=== PATIENT | male | born 1965 | race Caucasian/White ===

== ENCOUNTER 2019-06-02 00:25 | Day surgery (SDC) | payer OTHER, SELFPAY ==
[2019-05-31 15:02] VITALS: BMI 37.3
[2019-06-02] VITALS (9 sets, daily range): BP systolic 123–143; BP diastolic 65–83; PULSE 68–82; RESP 15–20; TEMP 36.2–36.8; O2SAT 93–98
--- NOTE | 2019-06-02 10:17 | ECG_ITS ---
Measurements Intervals [place] Rate: 74 P: 18 NC: 161 QRS: 40 QRSD: 104 T: 34 QT: 362 QTc: 404 Interpretive Statements SINUS RHYTHM DELAYED PRECORDIAL R/S TRANSITION MINIMAL Q WAVES- INFERIOR LEADS BASELINE ARTIFACT- I, II BORDERLINE ECG Electronically Signed On 06-02-2019 11:04:42 ENVELOPE MAKER by Fareed Hernandez D.O.
[2019-06-02] MEDS: LACTATED RINGERS 1,000 ML 30 ML IV CONT ×2 (10:25→14:28)
--- NOTE | 2019-06-02 10:36 | WPDANESEPPF ---
Anes - Initial Pre Proc Eval Procedure: Operation Date: 06/02/19 12:00 Proposed Procedures p Right Shoulder Arthroscopy, Distal Clavicle Excision - Brad Coffey MD Date/Time: 06/02/19 10:36 Surgeon: Brad Coffey MD Pre Op Diagnosis: Right Shoulder Pain Patient Data Age: 54 Gender: M Height: 1.78 m Weight: 115.6 kg Allergies Allergy/AdvReac Type Severity Reaction Status Date / Time oxycodone Allergy Severe Rash, Verified 06/02/19 10:05 ITCHING tetracycline Allergy Mild VOMITING, Verified 05/31/19 15:04 DIARRHEA Penicillins AdvReac Mild N/V Verified 05/31/19 15:04 Home Medications Medication Instructions Recorded Confirmed Type gabapentin 300 mg capsule 600 mg PO HS cap 02/18/19 06/02/19 History nortriptyline 50 mg capsule 50 mg PO HS 02/18/19 06/02/19 History pantoprazole 40 mg tablet,delayed 40 mg PO QAM 02/18/19 06/02/19 History release tadalafil 5 mg tablet 5 mg PO DAILY 02/18/19 06/02/19 History zolpidem 10 mg tablet 10 mg PO HS PRN 02/18/19 06/02/19 History amlodipine 5 mg tablet 5 mg PO BID #180 tablet 04/06/19 06/02/19 Rx montelukast 10 mg tablet 10 mg PO DAILY #90 tablet 04/06/19 06/02/19 Rx hydrocodone 10 mg-acetaminophen 1 tablet PO BID PRN tablet 05/10/19 06/02/19 History 325 mg tablet calcium polycarbophil [Fiber-Tabs] 625 mg PO DAILY 05/31/19 06/02/19 History famotidine 40 mg PO HS 05/31/19 06/02/19 History losartan 25 mg PO DAILY 05/31/19 06/02/19 History meloxicam 7.5 mg PO BID 05/31/19 06/02/19 History omega 3-brl-lkq-fish oil [Fish Oil] 2 cap PO DAILY 05/31/19 06/02/19 History pravastatin 40 mg PO DAILY 05/31/19 06/02/19 History Patient hx anesthesia problems: none Family hx anesthesia problems: none PMFSH Past Medical History Medical History (Updated 06/02/19 @ 10:38 by Demian Conklin MD) Benign essential hypertension Body mass index (bmi) 37.0-37.9, adult (11/20/18) Family History Family History (Updated 11/23/18 @ 11:14 by DOCTOR UNKNOWN) Grandparent Cerebrovascular accident Social History Social History Smoking status: Current every day smoker Alcohol intake: current Anes - Eval Final PreProcedure Day of Procedure 06/02/19 10:36 Patient weight: obese Heart: regular rate and rhythm Lungs: clear to auscultation and normal air movement Airway: Mallampati scale class II Neurological: alert and oriented Last oral intake: >/= 8 hours ASA classification: III Emergent: no Anesthetic plan: proceed Anesthesia type and monitoring: general ETT Informed Consent: The patient's anesthetic plan and its attendant risks and benefits were discussed with the patient/family/POA. Questions were solicited and answers provided to the satisfaction of the patient/family/POA.
--- NOTE | 2019-06-02 10:40 | WPDANESPNB ---
Anes - Peripheral Nerve Block Date/Time: 06/02/19 10:40 I have discussed with the patient/family/POA the placement of a peripheral nerve block for post-operative pain management, including associated risks, benefits, complications, and side effects. Alternative methods of post-operative analgesia were detailed. Questions were solicited and answers provided to the satisfaction of the patient/family/POA. Time-Out: A pre-procedural Time-Out was completed immediately before starting the procedure and confirmed: Patient Identification, Site, Procedure, Patient Position and the Availability of Requisite Equipment. Clinical Indications: Acute post-operative pain management requested by the operative surgeon. Nerve Block Insertion Note Anes-nerve block: supraclavicular right Patient position: supine Skin prep: chlorhexidine Needle: 22 gauge, stimulating, insulated echogenic needle. Needle length: 80 mm Technique: ultrasound (in plane) Injectate: bupivacaine 0.5% with epi 5 mcg/ml (20cc) Observations: tolerated well Complications: none Procedure start time:: 1200 Procedure end time:: 1205
--- NOTE | 2019-06-02 12:19 | WPDHPUPDATE1 ---
History and Physical Update Update Date/Time: 06/02/19 12:19 History and Physical has been reviewed, including an updated exam of the patient. There are NO changes in the patient's condition. Risks, benefits, and alternatives have been discussed and questions answered. Patient agrees to proceed with procedure.
[2019-06-02] MEDS: ceFAZolin 2 GM/D5W 50 ML 2 GM/50 ML BAG IVPB (12:23)
--- NOTE | 2019-06-02 14:08 | SUR.OPER ---
Ebl=50ml
--- NOTE | 2019-06-02 14:20 | PM.PROC ---
Procedure Note - Detailed Date of procedure: 06/02/19 Pre-op diagnosis: Right Shoulder Pain The risks benefits alternatives complications were discussed with the patient. They include but not limited to infection nerve blood vessel injury and the patient agreed to proceed. The patient presents with a right shoulder injury as result of a work-related incident. The patient had failed conservative management with regards to right shoulder pain. His preoperative diagnosis was that of possible labral tear and also significant acromioclavicular joint inflammation. The patient had failed conservative management with regards to physical therapy as well as oral anti-inflammatory medications and injections with cortisone. Therefore he is indicated for right shoulder arthroscopy. The patient was brought to the operative placed in supine position at which time he underwent general endotracheal anesthesia. He was then placed in a modified beach chair position with all bony prominences padded. Prior to this the patient underwent a interscalene block on the right side. The right shoulder was then prepped and draped in a standard sterile fashion. I 1st placed the camera into the glenohumeral joint space with some immediately noted pathology involving the superior aspect of the labrum. There was a labral tear that identified. I repaired this labral tear with a Arthrex suture anchor at about the 12 o'clock position. The subscapularis as well as the supraspinatus and infraspinatus were all intact and in good condition and there was no evidence of arthritis involving the glenohumeral joint. There is no evidence of inflammation of the biceps tendon as it traversed into the bicipital groove. This completed the labral repair. I then placed the camera into the subacromial space at which time I noted extensive inflammation of the subacromial bursa. It was at this time that I performed a subacromial bursectomy complete, with extensive dissection of the subacromial space. This was pathologic inflammation and extensive. This completed the portion of the procedure which was the subacromial bursectomy completed with extensive debridement of the subacromial space. I then identified a downsloping acromion over the anterolateral aspect. This downsloping acromion along with the injury to the right shoulder would provide for continued subacromial inflammation, therefore I elected to perform a subacromial decompression removing approximately 6 mm of the anterolateral aspect of the acromion with an arthroscopic bur. This completed the portion of the procedure which was the subacromial decompression. We then addressed the distal clavicle at which time I removed approximately 6-8 mm of the distal clavicle. There was significant amount of inflammation in this area and also this was significantly tender at the time of presentation with regards to this patient right shoulder work-related injury. I then irrigated copiously and closed the portal sites using Monocryl suture and benefits of shoulder in a sterile fashion. He was then transferred to the recovery room in stable condition. The patient will be seen by Physical therapy approximately day after tomorrow as it will be at that time that he keeps his incision dry and has a dressing change. Post-op diagnosis: other (Right Shoulder AC joint Inflamation, Right Shoulder Labral Tear, Right Shoulder Impingement Syndrome, Right Shoulder Subacromial Bursitis Complete with Extensive drebridement, Right Shoulder manipulation under anesthesia) Procedure performed: 1. Right Shoulder Labral Repair 2. Right Shoulder Distal Clavicel Excision 3. Right Shoulder Subacromial Decompression 4. Right Shoulder Subacromial Bursectomy Complete with extensive debridement Description of procedure: The Risks lisa Implants: Arthrex suture anchor Anesthesia: DELIA Surgeon: Brad Coffey MD Generating Plant Superintendent: none Estimated blood loss (mL): 10 Drains: No Packing: No Pathology: none sent C
--- NOTE | 2019-06-02 15:08 | SUR.PHASEI ---
1508 - family updated on pt's status
== END 2019-06-02 16:32 | disposition home or self-care (01) ==
PROVIDERS: PCP Internal Medicine; Visit Provider Orthopaedic Surgery
PROC: (CPT 29805; principal; 2019-06-02 12:00)
DX: S43.431A Superior glenoid labrum lesion of right shoulder, initial encounter (principal); M75.41 Impingement syndrome of right shoulder; M75.51 Bursitis of right shoulder; G89.18 Other acute postprocedural pain; X50.0XXA Overexertion from strenuous movement or load, initial encounter; I10 Essential (primary) hypertension; F17.210 Nicotine dependence, cigarettes, uncomplicated; E66.9 Obesity, unspecified; Z68.36 Body mass index [BMI] 36.0-36.9, adult
CPT/HCPCS: 29807; 29826; 29824; 64415; 93005; J0330; J0690; J1100; J2250; J2405; J2704; J3010; J3301; J7120

== ENCOUNTER 2020-01-17 09:57 | Outpatient (NON) | payer OTHER, SELFPAY ==
[2020-01-17 21:25] LABS: SARS-CoV-2 RNA PCR Negative
== END 2020-01-17 09:58 ==
PROVIDERS: PCP Internal Medicine; Visit Provider Internal Medicine
DX: Z20.828 Contact with and (suspected) exposure to other viral communicable diseases (principal); R68.89 Other general symptoms and signs
CPT/HCPCS: 87635; C9803; U0003

== ENCOUNTER 2020-05-18 14:07 | Outpatient (CLI) | payer OTHER, SELFPAY ==
--- NOTE | ~2020-05-18 | CT_ITS ---
EXAMINATION: CT abdomen pelvis w con DATE: 05/18/2020 15:07 INDICATION: Abdominal pain radiates to the back TECHNIQUE: Computed tomography (CT) of the abdomen and pelvis was performed with 100 mL Omnipaque-350 intravenous contrast. Automated exposure control and iterative reconstruction technique were employe d. The dose-length product was 1414.19 mGy-cm. COMPARISON: 12/04/2011 FINDINGS: Mild lingular atelectasis. Heart size is normal. Atherosclerotic coronary artery calcifications. No p ericardial or pleural effusion. Cholecystectomy clips at the gallbladder fossa. 8 mm low-attenuation likely cyst or hemangioma at the caudal tip of the right hepatic lobe. Spleen and bilateral adrenal g lands are normal. Couple punctate calcifications at the uncinate process of the pancreas which could represent sequela of chronic pancreatitis. Postoperative scarring and suture line consistent with jaxson or partial nephrectomy at the interpolar region of the left kidney. There are bilateral intermediate attenuation renal lesions, the largest in [place] lesion at the lower pole of the right kidney measuri ng 2.3 cm which are indeterminate for complex proteinaceous/hemorrhagic cysts versus enhancing neopla sm. Bowels including the appendix are normal. Small fat-containing umbilical and small fat-containing right inguinal hernias. Status post prostatectomy. Mild wall thickening with smooth margins at the a nterior bladder which may be related to incomplete distention. No free intraperitoneal gas or fluid. No pathologically enlarged abdominal or pelvic lymphadenopathy. There is calcified atherosclerosis of the aorta and many of the other arteries. Mild thoracolumbar spondylosis. IMPRESSION: 1. No acute intra-abdominal/pelvic process. 2. Bilateral indeterminate renal lesions the largest measuring 2.3 similar on the right which could r epresent proteinaceous/hemorrhagic cyst although differential would include solid enhancing renal edna l carcinoma. Would recommend further evaluation with pre and postcontrast MRI or CT . 3. Small fat-containing umbilical and right inguinal hernias. Reviewed, dictated and finalized at location A. UATE STUDIES DEAN IMPRESSION: 1. No acute intra-abdominal/pelvic process. 2. Bilateral indeterminate renal lesions the largest measuring 2.3 similar on t he right which could represent proteinaceous/hemorrhagic cyst although differen tial would include solid enhancing renal cell carcinoma. Would recommend furthe r evaluation with pre and postcontrast MRI or CT . 3. Small fat-containing umbilical and right inguinal hernias.
[2020-05-18 15:00] LABS: Estimated Glomerular Filt Rate > 60
== END 2020-05-18 14:08 | disposition home or self-care (01) ==
LOC: ANHIMG 14:12
PROVIDERS: PCP Internal Medicine; Visit Provider Nurse Practitioner
DX: K40.90 Unilateral inguinal hernia, without obstruction or gangrene, not specified as recurrent (principal); K42.9 Umbilical hernia without obstruction or gangrene
CPT/HCPCS: 74177; Q9967

== ENCOUNTER 2020-05-26 15:12 | Emergency (ER) | payer OTHER, SELFPAY ==
--- NOTE | ~2020-05-26 | CT_ITS ---
EXAMINATION: CT brain wo con, CT cervical spine wo con EXAM DATE: 05/26/2020 15:57 INDICATION: Fall, posterior head injury. Head and neck pain. TECHNIQUE: Spiral CT of the head was performed without contrast. Axial, coronal and sagittal images were reviewed. Spiral CT of the cervical spine was performed without contrast. Axial images were rev iewed. Coronal and sagittal reformatted images were also reviewed. The dose-length product (DLP) fo r this examination was 605.33 (accession [id number]), 507.05 (accession [id number]) mGy-cm. The exposure was tailored according to patient size, and iterative reconstruction (ASIR) was used as additional dose reduction technique. Correlation is made to brain MR 2011. FINDINGS: HEAD CT: There is no acute intraparenchymal hemorrhage. No evidence of intraparenchymal brain mass l esion. No evidence of acute infarction. There is no mass effect or midline shift. There is no obstru ctive hydrocephalus suspected. There are no extra-axial collections. There are no acute calvarial f ractures. The orbits are unremarkable. Soft tissue is unremarkable. The visualized sinuses and mas toid air cells are well aerated. CERVICAL CT: There is no evidence of acute cervical fracture. The odontoid process is intact. Pre- dens space is normal. Prevertebral soft tissue is normal. There are no soft tissue abnormalities id entified. There is no disc space widening or traumatic vertebral body subluxation suspected. Overal l mild to moderate cervical arthropathy. A detailed level by level evaluation of spondylosis can be added as addendum if requested. IMPRESSION: 1. No acute intracranial findings or cervical fracture. Reviewed, dictated and finalized at location A. RING DISTRIBUTION CLERK IMPRESSION: 1. No acute intracranial findings or cervical fracture.
--- NOTE | ~2020-05-26 | CT_ITS ---
EXAMINATION: CT thoracic spine wo [facility] EXAM DATE: 05/26/2020 16:28 INDICATION: Fall, mid back pain. TECHNIQUE: Spiral CT thoracic spine was performed, without contrast. Axial, coronal and sagittal nena ges were reviewed. The dose-length product (DLP) for this examination was 1428.48 mGy-cm. The expos ure was tailored according to patient size (auto mA exposure control), and iterative reconstruction ( ASIR) was used as additional dose reduction technique. There is no prior study for comparison. FINDINGS: There is moderate diffuse thoracic disc disease, moderate to large sized endplate osteophy winter. Mild diffuse loss of thoracic vertebral body heights without acute fracture line identified. The vertebral bodies are aligned in the AP dimension. There is moderate right neural foraminal stenosis from T8 through T11, and on the left from T9 through 11. Paraspinal soft tissue is unremarkable. IMPRESSION: 1. No acute thoracic fracture suspected. 2. Moderate spondylosis. Reviewed, dictated and finalized at location A. PERSON
[2020-05-26 15:27] VITALS: BP 164/87; PULSE 73; RESP 18; TEMP 36.5; O2SAT 99
--- NOTE | 2020-05-26 16:23 | ED.HEATRA ---
HPI - Head Injury General Chief complaint: Head Injury Stated complaint: fall, neck pain, headache Time Seen by Provider: 05/26/20 16:04 Source: patient Mode of arrival: ambulatory Limitations: no limitations History of Present Illness HPI Narrative: This is a 55-year-old male that presents the emergency department for headache and neck pain after an injury last night. Reports he slipped and fell at work. Reports landing on his back and hitting his head. Reports he did have a hard hat on. Reports that he has had headache. Also reports pain in his neck and down into his mid back. Pain is worse with movement and relieved with rest. Denies vision changes, vomiting, decreased range of motion, numbness, or weakness. Related Data Home Medications Medication Instructions Recorded Confirmed zolpidem 10 mg tablet 10 mg PO HS PRN 02/18/19 05/18/20 hydrocodone 10 mg-acetaminophen 1 tablet PO BID PRN tablet 05/10/19 05/18/20 325 mg tablet calcium polycarbophil [Fiber-Tabs] 625 mg PO DAILY 05/31/19 05/18/20 omega 1-yfk-djv-fish oil [Fish Oil] 2 cap PO DAILY 05/31/19 05/18/20 Allergies Allergy/AdvReac Type Severity Reaction Status Date / Time oxycodone Allergy Severe Rash, Verified 05/26/20 15:36 ITCHING tetracycline Allergy Mild VOMITING, Verified 05/26/20 15:36 DIARRHEA Penicillins AdvReac Mild N/V Verified 05/26/20 15:36 Review of Systems Review of Systems: Narrative: CONSTITUTIONAL: Denies fever EYES: Denies visual changes GASTROINTESTINAL: Denies vomiting MUSCULOSKELETAL: Reports back pain, joint pain, and myalgia. NEUROLOGIC: Reports headache. Denies numbness, or weakness. All systems reviewed & are unremarkable except as noted in HPI and below PMFSH Past Medical History Medical History (Updated 05/26/20 @ 17:59 by Evelyne Ayala PA-C) Benign essential hypertension Body mass index (bmi) 37.0-37.9, adult (11/20/18) Family History Family History (Updated 11/23/18 @ 11:14 by DOCTOR UNKNOWN) Grandparent Cerebrovascular accident Social History Social History (Updated 05/18/20 @ 12:49 by Mariza Green) Smoking packs per day: 1 Smoking cigarettes per day: 20.0 Years smoked: 20 Smoking pack-years: 20.00 Alcohol intake: current Gender identity (if verbalized by the patient): Male Exam Narrative: Exam Narrative: GENERAL: Well-appearing, well-nourished, and in no acute distress. HEAD: Normocephalic, atraumatic. EYES: PERRLA and EOMI. ENT: Nares clear, no rhinorrhea or epistaxis. Mucous membranes moist. Oropharynx without tonsillar hypertrophy exudate or other lesions. Bilateral TMs pearly greenberg non-bulging NECK: Supple. No adenopathy or masses. Tender to palpation of midline cervical spine CHEST: Clear to auscultation. No respiratory distress. No wheezes rales or rhonchi HEART: Regular rate and rhythm. No murmur heard. Normal peripheral pulses. BACK: Tender to palpation of midline thoracic spine. No tenderness to palpation of midline lumbar spine EXTREMITIES: Normal range of motion. No edema. Strength equal in bilateral upper extremities (5/5) SKIN: Warm, dry, no rash. NEURO: No focal deficits. Alert and oriented x3. Cranial nerves II through XII grossly intact PSYCH: Normal mood and affect Course Vital Signs Vital signs: Vital Signs Temperature 97.7 F 05/26/20 15:27 Pulse Rate 73 05/26/20 15:27 Respiratory Rate 18 05/26/20 15:27 Blood Pressure 164/87 H 05/26/20 15:27 Pulse Oximetry 99 05/26/20 15:27 Temperature 97.7 F 05/26/20 15:27 Pulse Rate 73 05/26/20 15:27 Respiratory Rate 18 05/26/20 15:27 Blood Pressure 164/87 H 05/26/20 15:27 Pulse Oximetry 99 05/26/20 15:27 MDM - Head Injury MDM Narrative Medical decision making narrative: Patient presents to the emergency department for head injury last night. Slipped and fell on the ice. Patient is neurologically intact. CT scan of the brain is without acute findings. CT scan of the thor
[2020-05-26] MEDS: ACETAMINOPHEN 500 MG TABLET 1000 MG PO (16:37)
== END 2020-05-26 18:07 | disposition home or self-care (01) ==
PROVIDERS: Emergency Provider Emergency Medicine; PCP Internal Medicine
DX: S09.90XA Unspecified injury of head, initial encounter (principal); I10 Essential (primary) hypertension; F17.210 Nicotine dependence, cigarettes, uncomplicated; W01.0XXA Fall on same level from slipping, tripping and stumbling without subsequent striking against object, initial encounter
CPT/HCPCS: 70450; 72125; 72128; 99284; A9270; L0140

== ENCOUNTER 2020-07-21 14:30 | Outpatient (RCR) | payer OTHER, SELFPAY ==
--- NOTE | 2020-06-19 15:28 | PTOPEVAL ---
PHYSICAL THERAPY EVALUATION Thank you for referring Marin Stanley to [facility] [place][Note 2].? Marin was evaluated for the dx of neck pain/headaches after a fall. The patient is scheduled to be seen for therapy?2 x/week for 4 weeks. Please review, sign, date and return this plan of care CHANNING. I agree with and certify that the following plan of care is medically necessary. Referring Physician Date Attending Provider: Rose Judd, BOBC Referring Provider: DO Gonzalo DevriesPT Outpatient Evaluation Start: 06/19/20 14:33 Freq: Status: Active Protocol: Document 06/19/20 14:34 MLV (Rec: 06/19/20 15:09 MLV [id number]) Therapy Assessment Status Assessment Status Evaluation Evaluation Information Problem Diagnosis neck and head pain Cause fall and hit to the back of his head Additional Evaluation Detail Patient slipped on the ice at work, was wearing a hardhat, and fell on his back and hit the back of his head. The patient sees a neurologist on 07/27/20, due to headaches and light sensitivity. The patient is off work per MD order. The patient has neck pain, headaches and light sensitivity since fall. Turning his head and looking down causes increased H/A ( posterior head). 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 The patient does yardwork, house projects and hunting when not working. Subjective Information The patient has a hx of right Query Text:As Reported By Patient/ shoulder surgery recently but Family currently has no shoulder restrictions. Diagnostic Tests MRI For This Problem Yes: head/neck/back- no major injury noted Pain Assessment Timing of Pain Assessment Timing of Pain Assessment Assessment Pain Scale Pain Scale Used Numeric (1 - 10) Self Report Pain Assessment Bilateral Neck Reported Pain Level 6 Pain Description Tightness Pain Frequency Acute Greatest Pain Intensity 7 Pain Score Pain Score 6: Self Report Interventions Used Interventions Used By Clinicians Education,Electrical
--- NOTE | 2020-07-21 15:18 | PTOPEVAL ---
PHYSICAL THERAPY DISCHARGE SUMMARY Thank you for referring Marin Stanley to [facility].? The patient has been seen 9 visits for the dx of neck and head pain. The patient has met his goals partially and peaked with further skilled PT needs. DC PT. Please review, sign, date and return this plan of care. I agree with and certify the following plan of care. Referring Physician Date Attending Provider: Rose Judd, SHINGLE CATCHER-C Referring Provider: Obey Ma DO *PT Outpatient Discharge Start: 06/19/20 14:33 Freq: Status: Active Protocol: Document 07/21/20 15:07 MLV (Rec: 07/21/20 15:17 MLV [id number]) Therapy Assessment Status Assessment Status Assessment Status Discharge Evaluation Information Problem Diagnosis neck and head pain Cause fell and hit to the back of his head Additional Evaluation Detail Pt feels his symptoms are about 25% better, still having headaches but less intense. Pt still has light sensitivity . Pt sees the neuro MD on 07/27. Pt currently remains off work due to concussion and is still not allowed to drive per precautions. Pt denies any trouble with the HEP as long as he does not stretch too far . If he overstretches, it creates a headache. Pain Assessment Timing of Pain Assessment Timing of Pain Assessment Assessment Pain Scale Pain Scale Used Numeric (1 - 10) Self Report Pain Assessment Bilateral Neck Reported Pain Level 5 Other Pain Aggravating Factors occipital MFR irritates PÉREZ; being in brighter lights Pain Score Pain Score 5: Self Report Interventions Used Interventions Used By Clinicians Electrical Stimulation,Heat, Manual Therapy Techniques Pain Relief Interventions Used By Exercise,Heat,Inactivity/Rest, Patient Medication Cervical and Lumbar ROM Cervical ROM Cervical Flexion (0-60) 49 Query Text:Active in Degrees Cervical Extension (0-70) 20 Query Text:Active in Degrees Cervical Lateral Flexion Right (0-50) 29 Query Text:Active in Degrees Cervical Lateral Flexion Left (0-50) 35 Query Text:Active in Degrees Cervical Rotation Right (0-90) 65 Query Text:Active in Degrees Cervical Rotation Left (0-90) 70 Query Text:Active in Degrees Palpation Assessment Palpation Palpation tightness decreases with STM
== END 2020-07-24 13:41 | disposition home or self-care (01) ==
LOC: ANHPT 14:30
PROVIDERS: PCP Internal Medicine; Referring Provider Internal Medicine; Visit Provider Nurse Practitioner
DX: S09.90XD Unspecified injury of head, subsequent encounter (principal); S19.9XXD Unspecified injury of neck, subsequent encounter
CPT/HCPCS: 97014; 97110; 97140; 97161; G0283

== ENCOUNTER → 2021-02-08 01:46 | Outpatient (CLI) | payer OTHER, SELFPAY ==
[2021-02-08 22:24] LABS: SARS-CoV-2 RNA PCR Negative
== END ==
PROVIDERS: PCP Internal Medicine; Visit Provider Nurse Practitioner
DX: R09.89 Other specified symptoms and signs involving the circulatory and respiratory systems (principal); Z20.822 Contact with and (suspected) exposure to COVID-19
CPT/HCPCS: C9803; U0003; U0005

== ENCOUNTER → 2021-03-17 01:35 | Outpatient (CLI) | payer OTHER, SELFPAY ==
[2021-03-17 12:26] LABS: Influenza Control Positive
[2021-03-17 20:10] LABS: SARS-CoV-2 RNA PCR Negative
== END ==
PROVIDERS: PCP Internal Medicine; Visit Provider Internal Medicine
DX: R68.89 Other general symptoms and signs (principal); Z20.822 Contact with and (suspected) exposure to COVID-19
CPT/HCPCS: 87804; C9803; U0003; U0005

== ENCOUNTER → 2021-06-13 00:28 | Outpatient (CLI) | payer BC, SELFPAY ==
[2021-06-13 11:24] LABS: Influenza A QL RT-PCR Negative (Negative); Influenza B QL RT-PCR Negative (Negative); SARS-CoV-2 RNA PCR Negative
== END ==
PROVIDERS: PCP Internal Medicine; Visit Provider Internal Medicine
DX: R68.89 Other general symptoms and signs (principal); Z20.822 Contact with and (suspected) exposure to COVID-19
CPT/HCPCS: 87502; C9803; U0003; U0005

== ENCOUNTER 2021-06-20 12:41 | Outpatient (CLI) | payer BC, SELFPAY ==
--- NOTE | ~2021-06-20 | XR_ITS ---
EXAMINATION: XR chest 2V 06/20/2021 12:54 INDICATION: Acute respiratory infection PROCEDURE: 2 view chest COMPARISON: 10/29/2011 FINDINGS: The lungs are clear. The cardiomediastinal silhouette is within normal limits. There are no pleural effusions. There is no pneumothorax suspected. IMPRESSION: 1: NO ACUTE CARDIOPULMONARY DISEASE. Reviewed, dictated and finalized at location B.
== END 2021-06-20 12:42 | disposition home or self-care (01) ==
LOC: ANHIMG 12:44
PROVIDERS: PCP Internal Medicine; Visit Provider Internal Medicine
DX: J06.9 Acute upper respiratory infection, unspecified (principal)
CPT/HCPCS: 71046

== ENCOUNTER 2021-09-24 09:21 | Outpatient (CLI) | payer BC, SELFPAY ==
--- NOTE | 2021-09-24 09:30 | ECG_ITS ---
Measurements Intervals [place] Rate: 71 P: 20 [place]: 170 QRS: 54 QRSD: 113 T: 19 QT: 394 QTc: 430 Interpretive Statements SINUS RHYTHM BASELINE ARTIFACT MODERATE INTRAVENTRICULAR CONDUCTION DELAY CANNOT RULE OUT INFERIOR INFARCTION, AGE INDETERMINATE ABNORMAL ECG COMPARED TO ECG 06/02/2019 10:53:50 NO SIGNIFICANT CHANGE Electronically Signed On 09-24-2021 14:34:06 CDT by Andres Stoner M.D.
[2021-09-24 10:12] LABS: Anion Gap 3 mmol/L (8-16); Blood Urea Nitrogen 20 mg/dL (9-20); Carbon Dioxide 29 mmol/L (22-30); Chloride 104 mmol/L (98-107); Estimated Glomerular Filt Rate > 60; Glucose 104 mg/dL (65-110); Potassium 4.1 mmol/L (3.4-5.0); Sodium 136 mmol/L (137-145)
== END 2021-09-24 09:22 | disposition home or self-care (01) ==
LOC: ANHSURGERY 09:24
PROVIDERS: Anesthesiology; PCP Internal Medicine; Visit Provider Surgery
DX: K46.9 Unspecified abdominal hernia without obstruction or gangrene (principal); I10 Essential (primary) hypertension; Z01.818 Encounter for other preprocedural examination; R94.31 Abnormal electrocardiogram [ECG] [EKG]
CPT/HCPCS: 36415; 80048; 86850; 86900; 86901; 93005

== ENCOUNTER 2021-09-25 00:36 | Day surgery (SDC) | payer BC, SELFPAY ==
[2021-09-18 13:05] VITALS: BMI 35.7
--- NOTE | 2021-09-18 13:42 | PC.NURSE ---
Report to the Outpatient Waiting Room, entrance under the green pavilion located off [facility], at time _0730_ on date _09/25/21 _. OR Time: _0930 . IF YOUR SURGERY TIME IS ADJUSTED, YOU WILL BE NOTIFIED ON Friday09/24/21 AFTERNOON - You and your visitor will be asked a series of questions to screen for COVID 19 for your protection. - Only one visitor is allowed at this time. - The patient visitor is requested to leave or wait in car when not with patient. - A mask is required within the hospital. Patients may have clear liquids (water, carbonated beverages, clear teas, apple juice) until 3 hours prior to surgery with a maximum of 20 ounces. - No food from midnight until time of surgery. YOU MAY HAVE CLEAR LIQUIDS UNTIL 0630 AM ON THE MORNING OF YOUR SURGERY - Take the following medications with a SIP of water the morning of surgery: _AMLODIPINE, HYDRALAZINE, PROPANOLOL, PANTOPRAZOLE Medications to discontinue per physician ____MELOXICAM, FISH OIL Date to take last dose____09/22/21 Please no make-up, nail kyrgyz, hairspray, perfume, deodorant, or body powder the day of surgery. No jewelry (including any body piercings) or valuables the day of surgery, leave them at home. Please take a shower or bath the night before, or the morning of, surgery with an antibacterial soap. Wear comfortable, loose fitting clothing. - Jewelry must be removed prior to entering the operating room. Rings and piercings that are not removed may be cut off. - The hospital will not accept responsibility for valuables. - Please leave all valuables, including medications, at home the day of surgery. If you are going home after surgery, a licensed service parts driver must drive you home. - NO public transportation without another adult. - We recommend that an adult stay with you for 24 hours following discharge. - We also recommend that you do not drive, make important decision, drink alcoholic beverages, or take any drugs that were not prescribed by your health care provider for at least 24 hours after your discharge time. Follow any additional instructions given to you from your surgeon. If you or anyone in your household have experienced Covid symptoms in the past week, please notify your surgeon or the nurse liaison at the phone number below for possible testing. Telephone instructions given to __MARK and asked if any additional questions and then verbalized understanding. Patient advised to call surgeon office or pre surgery nurse liaison [phone] if any additional questions.
--- NOTE | 2021-09-24 12:52 | WPDANESEPPF ---
Anes - Initial Pre Proc Eval Procedure: Operation Date: 09/25/21 09:30 Proposed Procedures p Laparoscopic Incisional Hernia Repair with Mesh, Davinci Assisted - Julián Berumen DO Date/Time: 09/24/21 12:52 Surgeon: Julián Berumen DO Pre Op Diagnosis: incisional hernia Patient Data Age: 56 Gender: M Height: 1.78 m Weight: 113 kg Allergies Allergy/AdvReac Type Severity Reaction Status Date / Time oxycodone Allergy Severe Rash, Verified 09/25/21 08:36 ITCHING tetracycline Allergy Severe VOMITING, Verified 09/25/21 08:36 DIARRHEA Penicillins AdvReac Severe N/V Verified 09/25/21 08:36 Home Medications Medication Instructions Recorded Confirmed Type omega 4-jtw-tmy-fish oil 1,000 mg 2 cap PO DAILY 05/31/19 09/18/21 History (120 mg-180 mg) capsule (Fish Oil) propranolol 20 mg tablet 20 mg PO TID 12/04/20 09/18/21 History tadalafil 5 mg tablet (Cialis) 5 mg PO DAILY #90 tabs 05/08/21 09/18/21 Rx valsartan 320 1 tablet PO DAILY #90 tabs 08/21/21 09/18/21 Rx mg-hydrochlorothiazide 25 mg tablet (Diovan HCT) hydralazine 100 mg tablet 100 mg PO TID #270 tabs 08/27/21 09/18/21 Rx meloxicam 7.5 mg tablet 7.5 mg PO BID #180 tabs 09/17/21 09/18/21 Rx amlodipine 5 mg tablet 5 mg PO BID 09/18/21 09/18/21 History famotidine 40 mg tablet 40 mg PO DAILY 09/18/21 09/18/21 History gabapentin 300 mg capsule 600 mg PO HS 09/18/21 09/18/21 History montelukast 10 mg tablet 10 mg PO DAILY 09/18/21 09/18/21 History nortriptyline 50 mg capsule 50 mg PO HS 09/18/21 09/18/21 History pantoprazole 40 mg tablet,delayed 40 mg PO DAILY 09/18/21 09/18/21 History release pravastatin 40 mg tablet 40 mg PO DAILY 09/18/21 09/18/21 History Patient hx anesthesia problems: none Family hx anesthesia problems: none Results Review: All pre-operative results and documents have been reviewed as part of the pre-operative evaluation. [facility] Past Medical History Medical History Aftercare following right shoulder joint replacement surgery Benign essential hypertension Body mass index (bmi) 37.0-37.9, adult (11/20/18) Headaches due to old head injury Renal cell carcinoma Surgical History Surgical History History of cholecystectomy History of kidney surgery History of prostatectomy History of shoulder surgery bilateral History of surgery on wrist Family History Family History Grandparent Cerebrovascular accident Hypertension Mother Diabetes mellitus Heart disease Social History Social History Smoking packs per day: 1 Smoking cigarettes per day: 20.0 Years smoked: 20 Smoking pack-years: 20.00 Smoking status: Current every day smoker Tobacco type: cigarettes Second hand tobacco smoke exposure: Yes Alcohol intake: current Drinks per week: 2 Substance use: never Substance use type: does not use Living arrangements: with family 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 Informed Consent: The patient's anesthetic plan and its attendant risks and benefits were discussed with the patient/family/POA. Questions were solicited and answers provided to the satisfaction of the patient/family
[2021-09-25] VITALS (9 sets, daily range): BP systolic 118–145; BP diastolic 63–72; PULSE 70–82; RESP 13–20; TEMP 36.3–37.3; O2SAT 92–100; BMI 35.5
[2021-09-25] MEDS: ACETAMINOPHEN 500 MG TABLET 1000 MG PO (08:30)
[2021-09-25] MEDS: KETOROLAC 15 MG/ML VIAL (*BKC) IV PUSH (08:30)
--- NOTE | 2021-09-25 09:08 | WPDHPUPDATE1 ---
History and Physical Update Update Date/Time: 09/25/21 09:08 History and Physical has been reviewed, including an updated exam of the patient. There are NO changes in the patient's condition. Risks, benefits, and alternatives have been discussed and questions answered. Patient agrees to proceed with procedure.
--- NOTE | 2021-09-25 09:09 | PM.IMHP ---
H&P: HPI History of Present Illness Date/Time: 09/25/21 09:09 Chief Complaint: Incisional hernia Narrative: This is a 56-year-old man who presents for incisional hernia repair. He was found to have an incisional hernia at a robotic port site from a previous robotic prostatectomy. He denies any changes since last seen in the office. Review of Systems Review of Systems: All systems reviewed & are unremarkable except as noted in HPI and below Constitutional: Constitutional: Denies chills, Denies fever(s), Denies headache(s) and Denies weight loss Eyes: Eyes: Denies change in vision ENT: Denies dizziness, Denies headache(s), Denies neck mass and Denies throat swelling Cardiovascular: Cardiovascular: Denies chest pain, Denies lightheadedness and Denies dyspnea Respiratory: Respiratory: Denies cough, Denies dyspnea and Denies wheezing Gastrointestinal: Gastrointestinal: Denies abdominal pain, Denies change in bowel habits, Denies nausea and Denies vomiting Genitourinary: Genitourinary: Denies hematuria and Denies dysuria Musculoskeletal: Musculoskeletal: Reports as per HPI Integumentary/Breasts: Skin/Breast: Reports as per HPI Neurologic: Denies dizziness and Denies headache(s) Allergic/Immunologic: Allergic/Immunologic: Denies throat swelling and Denies wheezing PMFSH Past Medical History Medical History Aftercare following right shoulder joint replacement surgery Benign essential hypertension Body mass index (bmi) 37.0-37.9, adult (11/20/18) Headaches due to old head injury Renal cell carcinoma Surgical History Surgical History History of cholecystectomy History of kidney surgery History of prostatectomy History of shoulder surgery bilateral History of surgery on wrist Family History Family History Grandparent Cerebrovascular accident Hypertension Mother Diabetes mellitus Heart disease Social History Social History Smoking packs per day: 1 Smoking cigarettes per day: 20.0 Years smoked: 20 Smoking pack-years: 20.00 Smoking status: Current every day smoker Tobacco type: cigarettes Second hand tobacco smoke exposure: Yes Alcohol intake: current Drinks per week: 2 Substance use: never Substance use type: does not use Living arrangements: with family 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 Gender identity (if verbalized by the patient): Male Spiritual care concerns: No Meds Home Medications and Allergies Home Medications Medication Instructions Recorded Confirmed Type omega 5-wjy-ekp-fish oil 1,000 mg 2 cap PO DAILY 05/31/19 09/18/21 History (120 mg-180 mg) capsule (Fish Oil) propranolol 20 mg tablet 20 mg PO TID 12/04/20 09/18/21 History tadalafil 5 mg tablet (Cialis) 5 mg PO DAILY #90 tabs 05/08/21 09/18/21 Rx valsartan 320 1 tablet PO DAILY #90 tabs 08/21/21 09/18/21 Rx mg-hydrochlorothiazide 25 mg tablet (Diovan HCT) hydralazine 100 mg tablet 100 mg PO TID #270 tabs 08/27/21 09/18/21 Rx meloxicam 7.5 mg tablet 7.5 mg PO BID #180 tabs 09/17/21 09/18/21 Rx amlodipine 5 mg tablet 5 mg PO BID 09/18/21 09/18/21 History famotidine 40 mg tablet 40 mg PO DAILY 09/18/21 09/18/21 History gabapentin 300 mg capsule 600 mg PO HS 09/18/21 09/18/21 History montelukast 10 mg tablet 10 mg PO DAILY 09/18/21 09/18/21 History nortriptyline 50 mg capsule 50 mg PO HS 09/18/21 09/18/21 History pantoprazole 40 mg tablet,delayed 40 mg PO DAILY 09/18/21 09/18/21 History release pravastatin 40 mg tablet 40 mg PO DAILY 09/18/21 09/18/21 History Allergies Allergy/AdvReac Type Severity Reaction Status Date / Time oxycodone Allergy Severe Rash, Verified 09/25/21 08:36 ITCHING tetracycline Allergy Severe VOMITING, Verified 09/25/21 08:36
[2021-09-25] MEDS: LACTATED RINGERS 1,000 ML 30 ML IV CONT ×2 (09:26→12:33)
[2021-09-25] MEDS: ceFAZolin 2 GM/D5W 50 ML 2 GM/50 ML BAG IVPB (09:44)
--- NOTE | 2021-09-25 11:41 | W.PM.PROC2 ---
Procedure Note - Detailed Date of Procedure 09/25/21 Pre-op Diagnosis incisional hernia Post-op Diagnosis Same (Incisional hernia x2) Procedure Performed Laparoscopic Incisional Hernia Repair with Mesh, da Eva assisted Surgeon Julián Berumen, Anesthesia General and Local (Exparel) Indications This is a 56-year-old man who presented with a painful bulge just superior to the umbilicus. This was in the area of previous robotic prostatectomy. He was found to have a reducible incisional hernia on physical exam. Discussions were made with the patient about treatment options and decision was made to proceed with robotic assisted laparoscopic incisional hernia repair with mesh. Findings Upon inspecting the abdomen laparoscopically, patient was found to have an incisional hernia about 2 cm superior to the umbilicus containing omentum. He was also noted to have a left upper quadrant incisional hernia from previous robotic partial nephrectomy. The supraumbilical hernia was measuring about 2 cm. The left upper quadrant incisional hernia was also measuring about 2 cm. The left upper quadrant incisional hernia was suture repaired with 0 Stratafix running absorbable suture. Decision was made not to place new mesh because this was right near where my other ports had already been placed. The supraumbilical incisional hernia was repaired with 0 Stratafix running absorbable suture and a Bard Ventralight ST 15 cm x 10 cm mesh was placed. The hernia sac was excised and sent to the lab for pathology. Description of Procedure Procedure as well as risks, benefits, and alternatives were discussed with the patient. Written consent was obtained and placed in chart prior to procedure. Patient was brought back to surgical suite. He was placed supine on operating table. Time-out was done to confirm patient and procedure. He was then intubated by the anesthesia department. A bump was placed under his left hip, and the bed was flexed slightly to extend the space between his costal margin and iliac crest. His abdomen was prepped and draped in sterile fashion using chlorhexidine prep. A 5 millimeter incision was made in the left upper quadrant, and a 5 millimeter Optiview trocar was advanced through the abdominal layers under direct visualization. Once inside the abdominal cavity, carbon dioxide insufflation was used to create a pneumoperitoneum. His abdomen was inspected. An 8 millimeter incision was made in the left lower quadrant, and an 8 millimeter robotic trocar was placed under direct visualization. Another 8 millimeter incision was made in the left lateral abdomen, and an 8 millimeter robotic trocar was placed under direct visualization. Exparel was infiltrated along the lateral abdominal quinones to perform a transversus abdominis plane block bilaterally. The 5 millimeter port was removed, the incision was extended to 12 millimeters, and a 12 millimeter air seal port was placed under direct visualization. A Tacos-Jain cone was also used to place an 0-Vicryl simple interrupted suture at this trocar site. The robotic arms were brought up to the patient's bedside and secured to the ports. The camera and instruments were inserted, and I then moved over to the robotic console and took control of the camera and instruments. After careful thorough inspection of the abdominal cavity, I began my dissection at the hernia. The patient was found to have 2 hernias. The supraumbilical hernia was containing some omentum but was reduced easily. He also had a left upper quadrant incisional hernia from his prior partial nephrectomy. This was also containing some omentum. The hernia sac and preperitoneal fat was reduced from the supraumbilical hernia. I then measured the hernia sizes. The supraumbilical hernia measured 2 cm x 2 cm, and the left upper quadrant incisional hernia measured 2 cm x 1 cm. The fascia of the supraumbilical incisional hernia was closed using an 0-Stra
[2021-09-25] MEDS: fentaNYL CITRATE INJ (*CRX) 100 MCG/2 ML VIAL 25 MCG IV PUSH ×5 (12:14→12:48)
[2021-09-25 12:58] LABS: Hepatitis B Surface Antigen Negative (Negative)
[2021-09-25 13:15] LABS: HIV 1/2 Ab P24 Ag Result Negative (Negative); Hepatitis C Virus Antibody Negative (Negative)
[2021-09-25] MEDS: HYDROcodone/acetaminophen (*CRX) 10-325 MG TABLET 1 TAB PO (13:53)
== END 2021-09-25 14:10 | disposition home or self-care (01) ==
PROVIDERS: PCP Internal Medicine; Visit Provider Surgery
PROC: (CPT 49654; principal; 2021-09-25 09:30)
DX: K43.2 Incisional hernia without obstruction or gangrene (principal); I10 Essential (primary) hypertension; Z85.46 Personal history of malignant neoplasm of prostate; Z85.528 Personal history of other malignant neoplasm of kidney; Z11.4 Encounter for screening for human immunodeficiency virus [HIV]; F17.210 Nicotine dependence, cigarettes, uncomplicated; E66.9 Obesity, unspecified; Z68.35 Body mass index [BMI] 35.0-35.9, adult
CPT/HCPCS: 49654; S2900; 36415; 80048; 86703; 86803; 86850; 86900; 86901; 87340; 88302; 93005; A9270; C1781; C9290; G0432; J0690; J1100; J1885; J2250; J2405; J2704; J2710; J3010; J7120

== ENCOUNTER 2023-01-06 02:33 | Day surgery (SDC) | payer BC, SELFPAY ==
[2022-12-24 13:33] VITALS: BMI 38.0
--- NOTE | 2023-01-03 16:42 | PM.HPGS ---
History of Present Illness History of Present Illness Consent: Risks, benefits, and alternatives have been discussed and questions answered. Patient agrees to proceed with procedure. Chief complaint: GERD, neoplasm screening Narrative: Marin Stanley is a 57 year old male referred for investigation of chronic acid reflux. He is also in need of colon cancer screening. He is taking pantoprazole 40 mg daily. despite that, he has frequent episodes of nocturnal burning in his throat with regurgitation. He denies dysphagia. He denies weight loss or vomiting. Review of Systems Review of Systems: All systems reviewed & are unremarkable except as noted in HPI and below PMFSH Past Medical History Medical History Aftercare following right shoulder joint replacement surgery Benign essential hypertension Body mass index (bmi) 37.0-37.9, adult (11/20/18) Erectile dysfunction Headaches due to old head injury Incarcerated hernia Lap inc hernia repair with mesh, Da Eva assisted on 09/25/21. Prostate CA Renal cell carcinoma Surgical History Surgical History History of cholecystectomy History of kidney surgery History of prostatectomy History of shoulder surgery bilateral History of surgery on wrist Family History Family History Grandparent Cerebrovascular accident Hypertension Mother Diabetes mellitus Heart disease Social History Social History Smoking packs per day: 1 Smoking cigarettes per day: 20.0 Years smoked: 25 Smoking pack-years: 25.00 Smoking status: Current every day smoker Tobacco type: cigarettes Second hand tobacco smoke exposure: Yes Alcohol intake: current Drinks per week: 1 Alcohol use details: occasional Substance use: never Substance use type: does not use Lack of Transportation: No Lack of Food: Never True Current Housing: I Have Housing Concerned About Future Housing: No Difficulty Paying Gas/Electric Bills: No Difficulty Paying for Meds: No Currently Unemployed: No Education: High School Diploma/GED Difficulty w/ Childcare or Family Care: No Living arrangements: with family 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 Gender identity (if verbalized by the patient): Male Spiritual care concerns: No Meds Home Medications and Allergies Home Medications Medication Instructions Recorded Confirmed Type pravastatin 40 mg tablet 40 mg PO DAILY #90 tabs 03/01/22 12/24/22 Rx loratadine 10 mg tablet (Allergy 10 mg PO DAILY #30 tabs 04/16/22 12/24/22 Rx Relief (loratadine)) famotidine 40 mg tablet 40 mg PO DAILY #90 tabs 05/27/22 12/24/22 Rx nortriptyline 50 mg capsule 50 mg PO HS #90 caps 05/27/22 12/24/22 Rx gabapentin 300 mg capsule 600 mg PO HS #180 caps 05/28/22 12/24/22 Rx hydralazine 100 mg tablet 100 mg PO TID #270 tabs 05/28/22 12/24/22 Rx fluticasone propionate 50 See Rx Instructions .Route 06/11/22 12/24/22 Rx mcg/actuation nasal .COMPLEX #16 grams spray,suspension pantoprazole 40 mg tablet,delayed See Rx Instructions .Route 07/29/22 12/24/22 Rx release .COMPLEX #90 tabs amlodipine 10 mg tablet (Norvasc) 10 mg PO DAILY #90 tabs 08/02/22 12/24/22 Rx montelukast 10 mg tablet 10 mg PO DAILY #90 tabs 08/02/22 12/24/22 Rx tadalafil 5 mg tablet (Cialis) 5 mg PO DAILY #90 tabs 08/02/22 12/24/22 Rx meloxicam 7.5 mg tablet See Rx Instructions .Route 12/13/22 12/24/22 Rx .COMPLEX #90 tabs valsartan 320 See Rx Instructions .Route 12/23/22 12/24/22 Rx mg-hydrochlorothiazide 25 mg tablet .COMPLEX #90 tabs Allergies Allergy/AdvReac Type Severity Reaction Status Date / Time oxycodone Allergy Severe Rash, Verified 01/06/23 06:17 ITCHING tetracycline Allergy Severe VOMITING, Verified 01/06/23 06:17 DIARRHEA
[2023-01-06 06:20] VITALS: BP 132/72; PULSE 73; RESP 18; TEMP 36.1; O2SAT 98
[2023-01-06] MEDS: LACTATED RINGERS 1,000 ML 150 ML IV CONT (06:29)
--- NOTE | 2023-01-06 07:21 | WPDANESEPPF ---
Anes - Initial Pre Proc Eval Procedure: Operation Date: 01/06/23 07:30 Proposed Procedures p Esophagogastroduodenoscopy & Screening Colonoscopy - Cory Pizano MD Date/Time: 01/06/23 07:21 Surgeon: Cory Pizano MD Pre Op Diagnosis: GERD, neoplasm screening Patient Data Age: 57 Gender: M Height: 1.78 m Weight: 118.2 kg Last Vital Signs Temp 97 F L 01/06/23 06:20 Pulse 73 01/06/23 06:20 Resp 18 01/06/23 06:20 BP 132/72 01/06/23 06:20 Pulse Ox 98 01/06/23 06:20 O2 Del Method Room Air 01/06/23 06:20 Allergies Allergy/AdvReac Type Severity Reaction Status Date / Time oxycodone Allergy Severe Rash, Verified 01/06/23 06:17 ITCHING tetracycline Allergy Severe VOMITING, Verified 01/06/23 06:17 DIARRHEA Penicillins AdvReac Severe N/V Verified 01/06/23 06:17 Home Medications Medication Instructions Recorded Confirmed Type pravastatin 40 mg tablet 40 mg PO DAILY #90 tabs 03/01/22 12/24/22 Rx loratadine 10 mg tablet (Allergy 10 mg PO DAILY #30 tabs 04/16/22 12/24/22 Rx Relief (loratadine)) famotidine 40 mg tablet 40 mg PO DAILY #90 tabs 05/27/22 12/24/22 Rx nortriptyline 50 mg capsule 50 mg PO HS #90 caps 05/27/22 12/24/22 Rx gabapentin 300 mg capsule 600 mg PO HS #180 caps 05/28/22 12/24/22 Rx hydralazine 100 mg tablet 100 mg PO TID #270 tabs 05/28/22 12/24/22 Rx fluticasone propionate 50 See Rx Instructions .Route 06/11/22 12/24/22 Rx mcg/actuation nasal .COMPLEX #16 grams spray,suspension pantoprazole 40 mg tablet,delayed See Rx Instructions .Route 07/29/22 12/24/22 Rx release .COMPLEX #90 tabs amlodipine 10 mg tablet (Norvasc) 10 mg PO DAILY #90 tabs 08/02/22 12/24/22 Rx montelukast 10 mg tablet 10 mg PO DAILY #90 tabs 08/02/22 12/24/22 Rx tadalafil 5 mg tablet (Cialis) 5 mg PO DAILY #90 tabs 08/02/22 12/24/22 Rx meloxicam 7.5 mg tablet See Rx Instructions .Route 12/13/22 12/24/22 Rx .COMPLEX #90 tabs valsartan 320 See Rx Instructions .Route 12/23/22 12/24/22 Rx mg-hydrochlorothiazide 25 mg tablet .COMPLEX #90 tabs Patient hx anesthesia problems: none Family hx anesthesia problems: none Results Review: All pre-operative results and documents have been reviewed as part of the pre-operative evaluation. [facility] Past Medical History Medical History Aftercare following right shoulder joint replacement surgery Benign essential hypertension Body mass index (bmi) 37.0-37.9, adult (11/20/18) Erectile dysfunction Headaches due to old head injury Incarcerated hernia Lap inc hernia repair with mesh, Da Eva assisted on 09/25/21. Prostate CA Renal cell carcinoma Surgical History Surgical History History of cholecystectomy History of kidney surgery History of prostatectomy History of shoulder surgery bilateral History of surgery on wrist Family History Family History Grandparent Cerebrovascular accident Hypertension Mother Diabetes mellitus Heart disease Social History Social History Smoking packs per day: 1 Smoking cigarettes per day: 20.0 Years smoked: 25 Smoking pack-years: 25.00 Smoking status: Current every day smoker Tobacco type: cigarettes Second hand tobacco smoke exposure: Yes Alcohol intake: current Drinks per week: 1 Alcohol use details: occasional Substance use: never Substance use type: does not use Lack of Transportation: No Lack of Food: Never True Current Housing: I Have Housing Concerned About Future Housing: No Difficulty Paying Gas/Electric Bills: No Difficulty Paying for Meds: No Currently Unemployed: No Education: High School Diploma/GED Difficulty w/ Childcare or Family Care: No Living arrangements: with family Additional occupation/education comments: [employer]
--- NOTE | 2023-01-06 07:44 | SUR.OPER ---
EGD END 736 COLONOSCOPY START 744
[2023-01-06 08:04] VITALS: BP 119/64; PULSE 80; RESP 23; O2SAT 96
[2023-01-06 08:14] VITALS: BP 116/69; PULSE 74; RESP 20; O2SAT 96
[2023-01-06 08:24] VITALS: BP 131/74; PULSE 68; RESP 18; O2SAT 100
== END 2023-01-06 08:29 | disposition home or self-care (01) ==
PROVIDERS: PCP Family Medicine; Visit Provider Internal Medicine Gastroenterology
PROC: 0DJ08ZZ Inspection of Upper Intestinal Tract, Via Natural or Artificial Opening Endoscopic (ICD-10-PCS; CPT 43235; principal; 2023-01-06 07:30)
DX: Z12.11 Encounter for screening for malignant neoplasm of colon (principal); D12.3 Benign neoplasm of transverse colon; K64.8 Other hemorrhoids; K21.9 Gastro-esophageal reflux disease without esophagitis; K22.70 Barrett's esophagus without dysplasia; I10 Essential (primary) hypertension; Z85.46 Personal history of malignant neoplasm of prostate; F17.210 Nicotine dependence, cigarettes, uncomplicated; E66.9 Obesity, unspecified; Z68.37 Body mass index [BMI] 37.0-37.9, adult
CPT/HCPCS: 45381; 45385; 43239; 88305; J2001; J2704; J7120

== ENCOUNTER 2023-02-13 08:40 | Outpatient (CLI) | payer BC, SELFPAY ==
--- NOTE | ~2023-02-13 | XR_ITS ---
EXAMINATION: XR UGIAC wo kub DATE: 02/13/2023 08:28 INDICATION: Hamilton's esophagus TECHNIQUE: Thick barium contrast with gas effervescent crystals were administered orally. Fluoroscop ic images of the esophagus, stomach, and proximal duodenum were obtained in various projections. The reafter, overhead images of the abdomen were performed. 1 minutes of fluroscopy. DAP 26. 45 fluorosco pic images FINDINGS: No prior studies for comparison. The esophagus is normal in caliber, without mucosal lesions or strictures. There is normal esophagea l peristalsis. There is no hiatal hernia. There is trace gastroesophageal reflux witnessed during th e examination. The gastric folds are normal. The proximal duodenum is also normal in appearance. There are cholecys tectomy clips. IMPRESSION: 1. Gastroesophageal reflux. Reviewed, dictated and finalized at location A. O PERSONALITY IMPRESSION: 1. Gastroesophageal reflux.
[2023-02-13 09:05] LABS: Basophils Absolute Auto 0.1 K/mm3 (0.0-0.1); Eosinophils Absolute Auto 0.1 K/mm3 (0-0.3); Eosinophils Percent Auto 1.9 % (0-4.4); Hematocrit 45.1 % (42.0-52.0); Immature Granulocyte Absolute 0.03 K/mm3 (0.00-0.031); Immature Granulocyte Percent A 0.4 % (0-0.5); Lymphocytes Absolute Auto 1.47 K/mm3 (0.9-3.2); Lymphocytes Percent Auto 20.1 % (18.3-44.2); Mean Corpuscular HGB Conc 33.3 g/dl (32-36); Mean Corpuscular Hemoglobin 30.2 pg (26-34); Mean Corpuscular Volume 90.7 fl (80-100); Mean Platelet Volume 10.4 fl (7.4-10.4); Monocytes Absolute Auto 0.8 K/mm3 (0.1-0.6); Monocytes Percent Auto 10.2 % (2.6-8.5); Neutrophils Absolute Auto 4.9 K/mm3 (1.3-6.7); Neutrophils Percent Auto 66.4 % (45.5-73.1); Platelet Count Result 193 k/mm3 (150-375); Red Blood Count 4.97 M/mm3 (4.6-6.20); Red Cell Distribution Width 13.4 % (11.5-14.5); White Blood Count 7.3 K/mm3 (4.5-10.0)
[2023-02-13 09:58] LABS: Alanine Aminotransferase 24 U/L (6-50); Albumin Level 4.4 g/dL (3.5-5.1); Alkaline Phosphatase 34 U/L (38-126); Anion Gap 7 mmol/L (8-16); Aspartate Amino Transferase 24 U/L (17-59); Bilirubin,Total 0.5 mg/dL (0.2-1.3); Blood Urea Nitrogen 19 mg/dL (9-20); Carbon Dioxide 28 mmol/L (22-30); Chloride 105 mmol/L (98-107); Cholesterol 223 mg/dL (0-200); Estimated Glomerular Filt Rate > 60; Glucose 114 mg/dL (65-110); HDL Direct 34 mg/dL; Potassium 4.1 mmol/L (3.4-5.0); Sodium 140 mmol/L (137-145); Triglycerides 151 mg/dL (<150)
[2023-02-13 10:10] LABS: LDL Cholesterol Direct 141 mg/dL
[2023-02-13 10:30] LABS: Hemoglobin A1C 5.7 % (<5.7)
[2023-02-13 10:33] LABS: Prostate Specific Antigen < 0.1 ng/mL (< OR = 4.0)
== END 2023-02-13 08:41 | disposition home or self-care (01) ==
PROVIDERS: PCP Family Medicine; Referring Provider Family Medicine; Visit Provider Surgery
DX: K21.9 Gastro-esophageal reflux disease without esophagitis (principal); K22.70 Barrett's esophagus without dysplasia; J32.9 Chronic sinusitis, unspecified; Z00.00 Encounter for general adult medical examination without abnormal findings; N40.0 Benign prostatic hyperplasia without lower urinary tract symptoms; E78.5 Hyperlipidemia, unspecified; I12.9 Hypertensive chronic kidney disease with stage 1 through stage 4 chronic kidney disease, or unspecified chronic kidney disease; N18.2 Chronic kidney disease, stage 2 (mild); E66.9 Obesity, unspecified
CPT/HCPCS: 36415; 74246; 80053; 80061; 83036; 84153; 84443; 85025; G0103

== ENCOUNTER 2023-03-21 10:49 | Outpatient (CLI) | payer BC, SELFPAY ==
--- NOTE | 2023-03-21 10:58 | ECG_ITS ---
Measurements Intervals [place] Rate: 82 P: 50 NE: 158 QRS: 21 QRSD: 114 T: 16 QT: 345 QTc: 405 Interpretive Statements SINUS RHYTHM CANNOT EXCLUDE PREVIOUS INFERIOR WALL [place] ABNORMAL ECG COMPARED TO ECG 09/24/2021 09:40:04 NO SIGNIFICANT CHANGES Electronically Signed On 03-21-2023 14:12:30 BEHAVIORAL SCIENTIST by Jaime Caldera M.D.
== END 2023-03-21 10:50 | disposition home or self-care (01) ==
PROVIDERS: PCP Family Medicine; Visit Provider Surgery
DX: K21.9 Gastro-esophageal reflux disease without esophagitis (principal); I10 Essential (primary) hypertension; Z01.818 Encounter for other preprocedural examination
CPT/HCPCS: 36415; 86850; 86900; 86901; 93005

== ENCOUNTER 2023-04-30 03:43 | Day surgery (SDC) | payer BC, SELFPAY ==
[2023-03-20 11:08] VITALS: BMI 37.8
--- NOTE | 2023-03-20 11:13 | PC.NURSE ---
Addendum entered by Rose Frost RN 04/22/23 10:04: PT TO ARRIVE AT 0930 ON 04/30/23 FOR SURGERY AT 1130. Original Note: Report to the Outpatient Waiting Room, entrance under the green pavilion located off [facility], at time 9:30 on date 03/25/23. Planned Procedure Time: 11:30. Time changes happen often and if your time is changed the preop area will call you the afternoon before. - You and your visitor will be asked to self-screen and do not enter if you have any COVID symptoms. - A mask is optional within the hospital at this time. Patients may have clear liquids (water, carbonated beverages, clear teas, apple juice) until 3 hours prior to surgery (8:30) with a maximum of 20 ounces. - No food from midnight until time of surgery Take the following medications with a SIP of water the morning of surgery: AMLODIPINE, HYDRALAZINE DO NOT STOP ANY OF YOUR OTHER PRESCRIPTION MEDICATIONS PRIOR TO SURGERY ?EXCEPT THE FOLLOWING Medications to discontinue per physician: MELOXICAM Date to take last dose: PER DR. GRIJALVA Please no make-up, nail citizen of [place], hairspray, perfume, deodorant, or body powder the day of surgery. No jewelry (including any body piercings) or valuables the day of surgery, leave them at home. Please take a shower or bath the night before, or the morning of, surgery with an antibacterial soap. Wear comfortable, loose fitting clothing. - Jewelry must be removed prior to entering the operating room. Rings and piercings that are not removed may be cut off. - The hospital will not accept responsibility for valuables. - Please leave all valuables, including medications, at home the day of surgery. If you are going home after surgery, a licensed truck driver supervisor must drive you home. - NO public transportation without another adult if you receive anesthesia. - We recommend that an adult stay with you for 24 hours following discharge. - We also recommend that you do not drive, make important decision, drink alcoholic beverages, or take any drugs that were not prescribed by your health care provider for at least 24 hours after your discharge time. Follow any additional instructions given to you from your surgeon. If you or anyone in your household have experienced Covid symptoms in the past week, please notify your surgeon or the nurse liaison at the phone number below for possible testing. Telephone instructions given to PT - RODNEY NIKKO and asked if any additional questions and then verbalized understanding. Patient advised to call surgeon office or pre surgery nurse liaison [phone] if any additional questions.
--- NOTE | 2023-04-22 10:03 | PC.NURSE ---
Pt states no changes in medications or health history since initial interview. New pre-op instructions reviewed with pt. Pt denies further questions at this time.
--- NOTE | 2023-04-29 14:00 | WPDANESEPPF ---
Anes - Initial Pre Proc Eval Procedure: Operation Date: 04/30/23 11:30 Proposed Procedures p Laparoscopic Fundoplication Davinci Assisted, Possible Hiatal Hernia Repair - Julián Berumen DO Date/Time: 04/29/23 14:00 Surgeon: Julián Berumen DO Pre Op Diagnosis: gerd Patient Data Age: 58 Gender: M Height: 1.78 m Weight: 119.5 kg Allergies Allergy/AdvReac Type Severity Reaction Status Date / Time oxycodone Allergy Severe Rash, Verified 04/30/23 09:35 ITCHING tetracycline Allergy Severe VOMITING, Verified 04/30/23 09:35 DIARRHEA Penicillins AdvReac Severe N/V Verified 04/30/23 09:35 Home Medications Medication Instructions Recorded Confirmed Type hydralazine 100 mg tablet 100 mg PO TID #270 tabs 05/28/22 04/30/23 Rx valsartan 320 See Rx Instructions .Route 12/23/22 04/30/23 Rx mg-hydrochlorothiazide 25 mg tablet .COMPLEX #90 tabs famotidine 40 mg tablet 40 mg PO DAILY #90 tabs 01/17/23 04/30/23 Rx fluticasone propionate 50 See Rx Instructions .Route 01/21/23 04/30/23 Rx mcg/actuation nasal .COMPLEX #16 grams spray,suspension amlodipine 10 mg tablet (Norvasc) 10 mg PO DAILY #90 tabs 01/22/23 04/30/23 Rx loratadine 10 mg tablet (Allergy 10 mg PO DAILY #30 tabs 01/22/23 04/30/23 Rx Relief (loratadine)) meloxicam 7.5 mg tablet See Rx Instructions .Route 01/22/23 04/30/23 Rx .COMPLEX #90 tabs montelukast 10 mg tablet 10 mg PO DAILY #90 tabs 01/22/23 04/30/23 Rx nortriptyline 50 mg capsule 50 mg PO HS #90 caps 01/22/23 04/30/23 Rx pantoprazole 40 mg tablet,delayed See Rx Instructions .Route 01/22/23 04/30/23 Rx release .COMPLEX #90 tabs tadalafil 5 mg tablet (Cialis) 5 mg PO DAILY #90 tabs 01/22/23 04/22/23 Rx gabapentin 300 mg capsule 600 mg PO HS #180 caps 02/17/23 04/30/23 Rx pravastatin 40 mg tablet 40 mg PO DAILY #90 tabs 03/12/23 04/30/23 Rx Patient hx anesthesia problems: none Family hx anesthesia problems: none Results Review: All pre-operative results and documents have been reviewed as part of the pre-operative evaluation. [facility] [place] Past Medical History Medical History (Updated 03/21/23 @ 10:41 by Randi Witt CMA) Aftercare following right shoulder joint replacement surgery Benign essential hypertension Body mass index (bmi) 37.0-37.9, adult (11/20/18) Colon cancer screening Erectile dysfunction Headaches due to old head injury Hyperlipidemia Incarcerated hernia Lap inc hernia repair with mesh, Da Eva assisted on 09/25/21. Prostate CA Renal cell carcinoma URI with cough and congestion Surgical History Surgical History (Updated 04/29/23 @ 14:05 by Demario Roland DO) H/O partial nephrectomy H/O radical prostatectomy Prostate cancer History of cholecystectomy History of kidney surgery History of prostatectomy History of shoulder surgery bilateral History of surgery on wrist Family History Family History Grandparent Cerebrovascular accident Hypertension Mother Diabetes mellitus Heart disease Social History Social History Smoking packs per day: 1 Smoking cigarettes per day: 20.0 Years smoked: 44 Smoking pack-years: 44.00 Smoking status: Current every day smoker Tobacco type: cigarettes Second hand tobacco smoke exposure: Yes Alcohol intake: current Drinks per week: 4 Alcohol use details: occasional Substance use: never Substance use type: does not use Lack of Transportation: No Lack of Food: Never True Current Housing: I Have Housing Concerned About Future Housing: No Difficulty Paying Gas/Electric Bills: No Difficulty Paying for Meds: No Currently Unemployed: No Education: High School Diploma/GED Difficulty w/ Childcare or Family Care: No Living arrangements: with family 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
[2023-04-30] VITALS (12 sets, daily range): BP systolic 138–170; BP diastolic 69–92; PULSE 88–117; RESP 16–20; TEMP 36.2–36.8; O2SAT 92–97
[2023-04-30] MEDS: LACTATED RINGERS 1,000 ML 30 ML IV CONT ×2 (10:15→14:21)
[2023-04-30 10:33] LABS: Anion Gap 7 mmol/L (8-16); Blood Urea Nitrogen 18 mg/dL (9-20); Calcium 9.3 mg/dL (8.4-10.2); Carbon Dioxide 29 mmol/L (22-30); Chloride 105 mmol/L (98-107); Estimated CRCL calculation 91 ml/min; Estimated Glomerular Filt Rate > 60; Glucose 106 mg/dL (65-110); Potassium 4.3 mmol/L (3.4-5.0); Sodium 141 mmol/L (137-145)
--- NOTE | 2023-04-30 10:55 | PM.IMHP ---
H&P: HPI History of Present Illness Date/Time: 04/30/23 10:55 Chief Complaint: Gastroesophageal reflux disease Narrative: This is a 58-year-old man who presents for robotic assisted laparoscopic fundoplication. He has a long history of gastroesophageal reflux disease and has been trying proton pump inhibitors for years. He recently underwent EGD which showed evidence of Hamilton's esophagitis. Esophageal manometry showed no significant dysmotility that would prevent fundoplication. Discussions were made with the patient about treatment options and decision was made to proceed with fundoplication. Review of Systems Review of Systems: All systems reviewed & are unremarkable except as noted in HPI and below Constitutional: Constitutional: Denies chills, Denies fever(s), Denies headache(s) and Denies weight loss Eyes: Eyes: Denies change in vision ENT: Denies dizziness, Denies headache(s), Denies neck mass and Denies throat swelling Cardiovascular: Cardiovascular: Denies chest pain, Denies lightheadedness and Denies dyspnea Respiratory: Respiratory: Denies cough, Denies dyspnea and Denies wheezing Gastrointestinal: Gastrointestinal: Denies abdominal pain, Denies change in bowel habits, Denies nausea and Denies vomiting Genitourinary: Genitourinary: Denies hematuria and Denies dysuria Musculoskeletal: Musculoskeletal: Reports as per HPI Integumentary/Breasts: Skin/Breast: Reports as per HPI Neurologic: Denies dizziness and Denies headache(s) Allergic/Immunologic: Allergic/Immunologic: Denies throat swelling and Denies wheezing [facility] Past Medical History Medical History (Updated 03/21/23 @ 10:41 by Randi Witt CMA) Aftercare following right shoulder joint replacement surgery Benign essential hypertension Body mass index (bmi) 37.0-37.9, adult (11/20/18) Colon cancer screening Erectile dysfunction Headaches due to old head injury Hyperlipidemia Incarcerated hernia Lap inc hernia repair with mesh, Da Eva assisted on 09/25/21. Prostate CA Renal cell carcinoma URI with cough and congestion Surgical History Surgical History (Updated 04/29/23 @ 14:05 by Demario Roland DO) H/O partial nephrectomy H/O radical prostatectomy Prostate cancer History of cholecystectomy History of kidney surgery History of prostatectomy History of shoulder surgery bilateral History of surgery on wrist Family History Family History Grandparent Cerebrovascular accident Hypertension Mother Diabetes mellitus Heart disease Social History Social History Smoking packs per day: 1 Smoking cigarettes per day: 20.0 Years smoked: 44 Smoking pack-years: 44.00 Smoking status: Current every day smoker Tobacco type: cigarettes Second hand tobacco smoke exposure: Yes Alcohol intake: current Drinks per week: 4 Alcohol use details: occasional Substance use: never Substance use type: does not use Lack of Transportation: No Lack of Food: Never True Current Housing: I Have Housing Concerned About Future Housing: No Difficulty Paying Gas/Electric Bills: No Difficulty Paying for Meds: No Currently Unemployed: No Education: High School Diploma/GED Difficulty w/ Childcare or Family Care: No Living arrangements: with family 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
--- NOTE | 2023-04-30 10:57 | WPDHPUPDATE1 ---
History and Physical Update Update Date/Time: 04/30/23 10:57 History and Physical has been reviewed, including an updated exam of the patient. There are NO changes in the patient's condition. Risks, benefits, and alternatives have been discussed and questions answered. Patient agrees to proceed with procedure.
--- NOTE | 2023-04-30 11:03 | SUR.PREOP ---
1100-Dr. Berumen aware of chronic nonopen pimple type areas on abdomen-will proceed.
[2023-04-30] MEDS: ceFAZolin 2 GM/D5W 50 ML 2 GM/50 ML BAG IVPB (11:33)
[2023-04-30] MEDS: BUPIVACAINE/EPINEPHRINE 0.5% 30 ML VIAL INFILTRATE (12:08)
--- NOTE | 2023-04-30 14:08 | W.PM.PROC2 ---
Procedure Note - Detailed Date of Procedure 04/30/23 Pre-op Diagnosis gerd Post-op Diagnosis Same Procedure Performed Robotic assisted laparoscopic Adeola fundoplication Surgeon Julián Berumen, DO Anesthesia General and Local (0.5% bupivicaine with epi) Indications This is a 58-year-old man who presented with refractory GERD and Hamilton's esophagitis. He has been on Protonix for years and still has to take famotidine for breakthrough reflux. He recently underwent EGD and biopsies of the GE junction showed evidence of Hamilton's esophagitis without dysplasia. Esophageal manometry was performed which showed no evidence of achalasia. Discussions were made with the patient further about treatment options and decision was made to proceed with robotic assisted laparoscopic fundoplication. Findings Laparoscopic Adeola fundoplication was performed. The patient was found to have evidence of some adhesions from his prior incisional hernia repair with mesh. These appeared to be omental adhesions and came down easily with blunt dissection and scissors with electrocautery. This then allowed me to visualize the remainder of the abdominal wall in place my other ports. The patient did not have any evidence of a significant hiatal hernia. The peritoneum around the distal esophagus was taken down from around the right and left sarah to allow for adequate esophageal length for fundoplication. I then performed a 360 degree Adeola fundoplication over a 60 Armenian bougie. No specimens were obtained for pathology. Description of Procedure Procedure as well as risks, benefits, and alternatives were discussed with the patient. Written consent was obtained and placed in chart prior to procedure. Patient was brought back to surgical suite. She was placed supine on operating table. Time-out was done to confirm patient and procedure. She was then intubated by the anesthesia department. Her abdomen was prepped and draped in sterile fashion using chlorhexidine prep. 0.5% bupivacaine with epinephrine was infiltrated locally around each area for port placement. An 8 mm incision was made in the left upper quadrant 2 cm inferior to the costal margin in the mid clavicular line. A 5 mm Optiview trocar was then advanced through the abdominal layers under direct visualization. Once inside the abdominal cavity, carbon dioxide insufflation was used to create a pneumoperitoneum. The camera was inserted in the abdomen was inspected. No immediate abnormalities were identified. Another 8 mm camera port was placed about 15 cm inferior to the xiphoid just to the left of midline under direct visualization. An 8 mm port was placed in the anterior axillary line on the left upper quadrant at about the same transverse plane as the camera port. An 8 mm port was placed in the right upper quadrant and another 8 mm AirSeal assist port was placed in right lower quadrant just to the right of the umbilicus. A 5 mm incision was made in the subxiphoid region and the Eddie liver retractor was inserted through this incision into the abdominal cavity to lift up the left lobe of the liver. This was secured in place to the bed of the table. The patient was then placed in 30? reverse Trendelenburg. The robotic arms were secured to the ports and the robotic camera and instruments were inserted. A force bipolar grasper was placed in the right upper quadrant port. The vessel sealer was placed in the midclavicular left upper quadrant port and a Cadiere grasper was placed in the anterior axillary line left upper quadrant port. I then moved over to the robotic console took control of the camera and instruments. A careful thorough exam was performed throughout the abdomen. The stomach was then reduced from within the hiatal hernia. The gastrohepatic ligament was taken down medially using the vessel sealer to identify the right sarah. Peritoneum along the medial side of the right sarah was then divided using th
[2023-04-30] MEDS: ONDANSETRON INJ 4 MG/2 ML VIAL IV PUSH (14:30)
[2023-04-30] MEDS: SCOPOLAMINE 1 MG PATCH 1 PATCH TRANSDERM (14:55)
[2023-04-30] MEDS: diphenhydrAMINE HCl INJ 50 MG/ML VIAL 25 MG IV PUSH (14:55)
[2023-04-30] MEDS: fentaNYL CITRATE INJ (*CRX) 100 MCG/2 ML VIAL 25 MCG IV PUSH ×2 (15:30→15:35)
--- NOTE | 2023-04-30 16:44 | ADMGEN ---
This patient, Marin Stanley, was admitted to Medical Room 249-01. Patient/family oriented to hospital policies and general routines including ID bracelet, bed and alarms, visiting hours, pain management, procedures, bathroom and other care routines, personal items, smoking policy, room service/diet, and visiting hours. Information on how to activate the Rapid Response Team has been discussed. Patient/Family are encouraged to report perceived risks to care and to ask questions if they do not understand what they are told or what they should do.
[2023-04-30] MEDS: HYDROcodone/acetaminophen (*CRX) 5-325 MG TABLET 1 TAB PO (20:01)
[2023-04-30] MEDS: NORTRIPTYLINE HCL 25 MG CAPSULE 50 MG PO (20:02)
[2023-04-30] MEDS: GABAPENTIN 300 MG CAPSULE 600 MG PO (20:02)
[2023-04-30] MEDS: MELOXICAM 7.5 MG TABLET PO (20:04)
[2023-04-30] MEDS: hydrALAZINE HCL 50 MG TABLET 100 MG PO (20:04)
[2023-05-01] VITALS: BP 160/78; PULSE 100; RESP 16; TEMP 36.7; O2SAT 94
[2023-05-01] MEDS: HYDROcodone/acetaminophen (*CRX) 5-325 MG TABLET 1 TAB PO (00:54)
[2023-05-01 05:21] VITALS: BP 146/72; PULSE 109; RESP 16; TEMP 37.1; O2SAT 91
[2023-05-01 06:17] LABS: Hematocrit 43.2 % (42.0-52.0); Hemoglobin 13.7 g/dL (14.0-18.0); Mean Corpuscular HGB Conc 31.7 g/dl (32-36); Mean Corpuscular Hemoglobin 29.7 pg (26-34); Mean Corpuscular Volume 93.7 fl (80-100); Mean Platelet Volume 11.3 fl (7.4-10.4); Platelet Count Result 180 k/mm3 (150-375); Red Blood Count 4.61 M/mm3 (4.6-6.20); Red Cell Distribution Width 13.8 % (11.5-14.5); White Blood Count 11.7 K/mm3 (4.5-10.0)
[2023-05-01 06:30] LABS: Anion Gap 8 mmol/L (8-16); Blood Urea Nitrogen 15 mg/dL (9-20); Calcium 9.2 mg/dL (8.4-10.2); Carbon Dioxide 26 mmol/L (22-30); Chloride 105 mmol/L (98-107); Estimated CRCL calculation 90 ml/min; Estimated Glomerular Filt Rate > 60; Glucose 118 mg/dL (65-110); Potassium 4.1 mmol/L (3.4-5.0); Sodium 139 mmol/L (137-145)
[2023-05-01] MEDS: HYDROcodone/acetaminophen (*CRX) 5-325 MG TABLET 2 TAB PO ×2 (06:32→11:15)
[2023-05-01] MEDS: hydrALAZINE HCL 50 MG TABLET 100 MG PO ×2 (09:15→12:49)
[2023-05-01] MEDS: PRAVASTATIN SODIUM 20 MG TABLET 40 MG PO (09:15)
[2023-05-01] MEDS: PANTOPRAZOLE 40 MG TABLET PO (09:15)
[2023-05-01] MEDS: MONTELUKAST SODIUM 10 MG TABLET PO (09:15)
[2023-05-01] MEDS: amLODIPine BESYLATE 5 MG TABLET 10 MG PO (09:16)
[2023-05-01] MEDS: MELOXICAM 7.5 MG TABLET PO (09:16)
[2023-05-01] MEDS: ENOXAPARIN 40 MG/0.4 ML SYRINGE SUB-Q (09:16)
[2023-05-01] MEDS: LORATADINE 10 MG TABLET PO (09:16)
[2023-05-01 09:20] VITALS: BP 145/80; PULSE 106; O2SAT 91
--- NOTE | 2023-05-01 14:18 | PCCCNOTE ---
On 05/01/23, the student, [Chelsy Heredia], provided care and completed [employer] documentation on this patient. I have reviewed the student's documentation and agree with the findings.
--- NOTE | 2023-05-01 14:35 | PM.DS ---
DS: Admitting Diagnosis Discharge Date 05/01/2023 Admitting Diagnosis Gastroesophageal reflux disease, Hamilton's esophagus DS: Discharge Diagnosis Discharge Diagnosis (1) GERD (gastroesophageal reflux disease): Qualifiers: Esophagitis presence: with esophagitis Esophagitis bleeding: unspecified whether hemorrhage Qualified Code(s): K21.00 - Gastro-esophageal reflux disease with esophagitis, without bleeding Code(s): K21.9 - Gastro-esophageal reflux disease without esophagitis Status: Acute (2) Barretts esophagus: Qualifiers: Hamilton's esophagus type: without dysplasia Qualified Code(s): K22.70 - Hamilton's esophagus without dysplasia Code(s): K22.70 - Hamilton's esophagus without dysplasia Status: Acute DS: Summary Hospital Course Reason for hospitalization: Gastroesophageal reflux disease Hospital Course: This is a 58-year-old man who presented for robotic assisted laparoscopic Adeola fundoplication 04/30/2023. He had been experiencing refractory GERD symptoms despite being on multiple antacids and proton pump inhibitors. He had been trying medical and lifestyle changes without any significant relief. Surgery was uncomplicated and he was placed in the hospital for observation postoperatively. He was started on a clear liquid diet initially and pain was controlled with p.o. and IV pain medications. He remained hemodynamically stable and was tolerating a liquid diet without any significant dysphagia. On postop day 1 he was advanced to a full liquid diet and tolerated this. His pain was well controlled and he was ambulating with minimal difficulties. He was discharged on 05/01/2023. Status at Discharge Functional status at discharge: independent ambulation Overall status at discharge: patient is progressing back to baseline Time Spent with Patient Time attestation: Total time spent providing and/or coordinating discharge services: Time spent: Less than 30 minutes Exam Const: General: cooperative, comfortable, no acute distress and alert Orientation/consciousness: patient oriented x3 GI: Inspection: non-distended and incision (Intact with glue) GI Palp: Yes Soft to palpation and Yes Tenderness to palpation present (GI) (Incisional) DS: Data Data Completed and Pending Labs on day of discharge: Labs from last 24 hours 05/01/23 05:37 WBC 11.7 H RBC 4.61 Hgb 13.7 L Hct 43.2 MCV 93.7 MCH 29.7 MCHC 31.7 L RDW 13.8 Plt Count 180 MPV 11.3 H Sodium 139 Potassium 4.1 Chloride 105 Carbon Dioxide 26 Anion Gap 8 BUN 15 Creatinine 1.00 Estim Creat Clear Calc 90 Estimated GFR > 60 Glucose 118 H Calcium 9.2 Discharge Plan Discharge Patient Disposition: Home, Self-Care Discharge Instructions: DISCHARGE INSTRUCTION SHEET FOR HERNIA, GALLBLADDER AND APPENDIX SURGERIES DR. GRIJALVA PATIENT TO TAKE HOME 1. May shower in 24 hours, no soaking in bath x 2weeks. 2. Call office for: Wound increasingly painful or bleeding Vomiting Fever of greater than 101 degrees 3. If no bowel movement for three days, take 1 oz. (30 ml) Milk of Magnesia or MiraLax 17g 1 to 2 times daily. 4. No heavy lifting > 10-15 pounds x 4 weeks for hernia repairs and 2 weeks for laparoscopic cholecystectomy or appendectomy. 5. No driving for 3 days or while taking narcotic pain medications. 6. Ice to surgical site for 48 hours (30 min on, then 30 min off). 7. Up walking 10-30 minutes three times per day. 8. Resume previous home medications. 9. Follow-up 10-14 days in office for wound check or as previously scheduled. ([id number]) 10. Oral pain medications prescription to be sent to pharmacy. Take Tylenol 500mg every 6 hours and Ibuprofen 600mg every 6 hours for the first 2 days, then as needed. 11. NUTRITION: Start out by drinking fluids and increase your diet as tolerated. If you exper
== END 2023-05-01 15:05 | disposition home or self-care (01) ==
LOC: ANHSURGERY 09:19 → ANH2MED 16:30
PROVIDERS: Anesthesiology; PCP Family Medicine; Visit Provider Surgery
PROC: 0DV44ZZ Restriction of Esophagogastric Junction, Percutaneous Endoscopic Approach (ICD-10-PCS; CPT 43280; principal; 2023-04-30 11:30)
DX: K22.70 Barrett's esophagus without dysplasia (principal); K66.0 Peritoneal adhesions (postprocedural) (postinfection); K21.9 Gastro-esophageal reflux disease without esophagitis; E78.5 Hyperlipidemia, unspecified; I10 Essential (primary) hypertension; Z85.46 Personal history of malignant neoplasm of prostate; Z90.5 Acquired absence of kidney; F17.210 Nicotine dependence, cigarettes, uncomplicated
CPT/HCPCS: 43280; S2900; 36415; 80048; 85027; 86850; 86900; 86901; 93005; A9270; J0690; J1100; J1170; J1200; J1650; J2250; J2405; J2704; J3010; J7120

== ENCOUNTER 2023-05-26 15:31 | Outpatient (CLI) | payer BC, SELFPAY ==
--- NOTE | ~2023-05-26 | CT_ITS ---
EXAMINATION: CTA chest PE protocol DATE: 05/26/2023 16:06 INDICATION: Chest pain TECHNIQUE: Computed tomography (CT) pulmonary angiogram of the chest was performed with 100 mL Omnipa que-350 intravenous contrast. Additional 3D reconstructions utilizing coronal maximum intensity proje ction (MIP) were performed. The dose-length product was 762.54 mGy-cm. COMPARISON: None FINDINGS: There is suboptimal timing of the contrast bolus along with some mild respiratory motion artifact whi ch mildly decreases sensitivity in some of the smaller subsegmental pulmonary arteries. No definitive pulmonary embolism. There is suggestion of mild emphysema however assessment is limited by the motio n which limits assessment of fine pulmonary parenchymal detail. There are a few discrete patches cent imeters irregular nodular opacities in both lungs. This includes a 2.1 x 1.4 similar lesion in the le ft upper lobe, a 1.4 similar lesion at the posterior segment of the right upper lobe, 8 2.7 x 1.4 cm region in both the right middle and anterior segment right upper lobe which extends across anterior a spect of the right minor fissure. Finally there is a 4.0 x 3.0 cm pleural-based mass with spiculated margins along the paraspinal posterior basilar segment of the left lower lobe. There are some linear discoid atelectasis/scarring at the posterior sulci of the bilateral lower lobes. Small calcified rig ht lower lobe nodule along with calcified right hilar lymph nodes consistent with old granulomatous d isease. No pulmonary edema or pleural effusion. Heart size is normal. Atherosclerotic coronary artery calcific lesion. No pericardial or pleural effusion. Thoracic aorta is normal in caliber with no dis section. No pathologically enlarged thoracic lymphadenopathy. Cholecystectomy clips the gallbladder f thuan. Postoperative change of prior Adeola fundoplication. Mild to moderate thoracic spondylosis with chronic appearing mild anterior wedging of a few lower thoracic vertebral bodies. IMPRESSION: 1. No pulmonary embolism. Evaluation mildly limited in some of the smaller subsegmental pulmonary art eries by suboptimal timing of the contrast bolus and small amount of respiratory motion artifact. 2. A few scattered patchy/nodular airspace opacities in both lungs most likely representing pneumonia although differential would include latency either primary or metastatic. Correlate clinically for s igns or symptoms of pneumonia and consider short interval follow-up in 6-12 weeks with low-dose nonco ntrast chest CT. 3. Prior cholecystectomy and Adeola fundoplication. Reviewed, dictated and finalized at location A. UL[facility] OFFICER IMPRESSION: 1. No pulmonary embolism. Evaluation mildly limited in some of the smaller subs egmental pulmonary arteries by suboptimal timing of the contrast bolus and smal l amount of respiratory motion artifact. 2. A few scattered patchy/nodular airspace opacities in both lungs most likely representing pneumonia although differential would include latency either prima ry or metastatic. Correlate clinically for signs or symptoms of pneumonia and c onsider short interval follow-up in 6-12 weeks with low-dose noncontrast chest CT. 3. Prior cholecystectomy and Adeola fundoplication.
--- NOTE | ~2023-05-26 | XR_ITS ---
EXAMINATION: XR chest 2V DATE: 05/26/2023 15:51 INDICATION: Chest pain TECHNIQUE: PA and lateral views of the chest were obtained. COMPARISON: Chest radiograph dated 06/20/2021 FINDINGS: New subtle patchy/nodular airspace opacities in the right midlung zone. No other airspace opacities, pulmonary edema, pleural effusion or pneumothorax. The cardiomediastinal silhouette is normal. Cholec ystectomy clips in right upper quadrant. Moderate thoracic spondylosis with chronic mild anterior wed ging of a few mid and lower thoracic vertebral bodies. IMPRESSION: 1. Subtle patchy/nodular opacities in the right midlung zone which could represent pneumonia, atelect asis or potentially malignancy. Correlate with appearance on the planned chest CT. Reviewed, dictated and finalized at location A. PULATIVE THERAPY SPECIALIST IMPRESSION: 1. Subtle patchy/nodular opacities in the right midlung zone which could repres ent pneumonia, atelectasis or potentially malignancy. Correlate with appearance on the planned chest CT.
== END 2023-05-26 15:32 | disposition home or self-care (01) ==
LOC: ANHIMG 15:33
PROVIDERS: PCP Family Medicine; Visit Provider Nurse Practitioner Family
DX: R07.9 Chest pain, unspecified (principal); R05.9 Cough, unspecified; R50.9 Fever, unspecified; R91.8 Other nonspecific abnormal finding of lung field
CPT/HCPCS: 71046; 71275; Q9967

== ENCOUNTER 2023-06-09 08:01 | Outpatient (CLI) | payer BC, SELFPAY ==
--- NOTE | ~2023-06-09 | XR_ITS ---
EXAMINATION: XR esophogram water soluble DATE: 06/09/2023 08:58 INDICATION: Gastroesophageal reflux disease without esophagitis post recent Adeola fundoplication TECHNIQUE: The patient drank a soluble contrast. Fluoroscopic spot radiographs of the hypopharynx, es ophagus and stomach were obtained. Fluoroscopy exposure time was 1.8 minutes. A total of 799 fluoros copic images were obtained. COMPARISON: 02/13/2023 FINDINGS: The pharynx is normal without evidence of mass lesion or mucosal irregularity. The esophagu s is normal without mass or stricture. Multiple postoperative changes of Adeola fundoplication. The e sophagus empties promptly into the stomach both in the standing and prone positions with gastroesopha geal junction measuring up to 6 or 7 mm in maximal diameter. Centimeters and the changes of Adeola fu ndoplication the stomach appears normal. No residual hiatal hernia. There was no gastroesophageal ref lux with provocative maneuvers. Cholecystectomy clips in the right upper quadrant. IMPRESSION: 1. Normal esophagram post Adeola fundoplication with no hiatal hernia, stricture or gastroesophageal reflux. Reviewed, dictated and finalized at location A. ENT SAFETY OFFICER IMPRESSION: 1. Normal esophagram post Adeola fundoplication with no hiatal hernia, strictur e or gastroesophageal reflux.
== END 2023-06-09 08:02 | disposition home or self-care (01) ==
PROVIDERS: PCP Family Medicine; Visit Provider Surgery
DX: K21.9 Gastro-esophageal reflux disease without esophagitis (principal); K22.70 Barrett's esophagus without dysplasia
CPT/HCPCS: 74220

== ENCOUNTER 2023-06-27 10:54 | Inpatient (IN) | payer BC, SELFPAY ==
[2023-06-27] VITALS (10 sets, daily range): BP systolic 128–148; BP diastolic 57–81; PULSE 82–93; RESP 15–21; TEMP 36.2–36.6; O2SAT 98–100
--- NOTE | ~2023-06-27 | XR_ITS ---
MODIFIED ESOPHAGRAM HISTORY: Aspiration pneumonia TECHNIQUE: Modified barium esophagram was performed by speech pathologist under radiologist fluorosco pic guidance. This was recorded on tape. The exam was reviewed on 06/28/2023 10:34 CDT. One fluorosc opic image. FINDINGS: Lateral projection of the cervical spine demonstrates normal alignment. There is normal s wallowing function without evidence for penetration or aspiration.. IMPRESSION: 1: Normal swallowing function without penetration or aspiration. 2: Please refer to speech pathologist report for additional detail. Reviewed, dictated and finalized at location A.
--- NOTE | ~2023-06-27 | XR_ITS ---
EXAMINATION: XR chest 1V portable DATE: 06/30/2023 06:31 INDICATION: Shortness of breath. TECHNIQUE: A single frontal view of the chest was obtained. COMPARISON: Chest one view 06/29/2023, chest CT 06/29/2023, 05/26/2023 FINDINGS: There are masses in the right middle lobe, right upper lobe, and left upper lobe. There are airspace opacities at left lung base. There is a small left pleural effusion. No pneumothorax. The h eart size is normal. IMPRESSION: 1. Stable lung masses and worsened left basilar airspace opacities, consistent with pneumonia. 2. Small left pleural effusion. Reviewed, dictated and finalized at location E.
--- NOTE | ~2023-06-27 | CT_ITS ---
EXAMINATION: CTA chest abdomen pelvis DATE: 06/29/2023 16:35 INDICATION: chest/abdominal pain; severe, fu multifocal pneumo . TECHNIQUE: Computed tomography (CT) of the chest, abdomen, and pelvis was performed with 100 mL Omnip aque-350 intravenous contrast in the arterial phase. Automated exposure control and iterative reconst ruction technique were employed. The dose-length product was 3151.43 mGy-cm. COMPARISON: CTPA 06/27/2023 and 05/26/2023; CT abdomen pelvis 05/18/2020 FINDINGS: CHEST: Thoracic aorta: No significant dilation. No dissection. Lung parenchyma and airways: Stable fluid and gas or simply fluid-filled pulmonary nodules/masses inv olving the bilateral upper lobes, and right middle lobe. Decreased size of the medial left lower lobe lesion. Needle dependent subsegmental left lower lobe airspace disease. Thoracic inlet, axillae and chest wall: No thyroid or soft tissue mass. No axillary lymphadenopathy. Mediastinum: No mass or lymphadenopathy. Heart and pericardium: Normal heart size. No pericardial effusion. Coronary artery calcifications: . Pleura: Small left pleural effusion with peripheral enhancement. Thoracic bones: No acute osseous finding in the chest. ABDOMEN/PELVIS: Liver: Normal. Biliary/Gallbladder: Gallbladder is absent. No bile duct dilation. Pancreas: No mass or duct dilation. Spleen: Normal. Adrenals:No mass. Kidneys: Partial left nephrectomy defect. Multiple indeterminate density bilateral renal lesions, mos t of which are 1 cm to subcentimeter in size. Largest measures 3.1 cm in the right lower pole. All pr eviously identified lesions are stable over a time period of 3 years. Several new subcentimeter hypod ensities that are too small to characterize and most likely represent cysts. No hydronephrosis. GI tract: Adeola fundoplication. No small or large bowel dilation. Appendix not confidently visualize d. Mesentery/Peritoneum: No ascites, mass, or free air. Retroperitoneum: No mass Atherosclerotic abdominal aortic and/or arterial calcifications. Pelvis: Pelvic organs are within normal limits Soft Tissues: Soft tissues and body wall unremarkable. Abdominopelvic bones: No acute osseous finding in the abdomen/pelvis. IMPRESSION: Multiple bilateral pulmonary masses/nodules, may represent infection/abscess or septic emboli. Decreased size of the left medial lobe lesion, new adjacent small pleural effusion with surrounding e nhancement as can be seen with empyema. Question interval rupture/drainage into the pleural space. Reviewed, dictated and finalized at location K. IMPRESSION: Multiple bilateral pulmonary masses/nodules, may represent infection/abscess or septic emboli. Decreased size of the left medial lobe lesion, new adjacent small pleural effus ion with surrounding enhancement as can be seen with empyema. Question interval rupture/drainage into the pleural space.
--- NOTE | ~2023-06-27 | CT_ITS ---
Clinical Indication: Hemoptysis CT Scan of the Chest with Contrast: Technique: Contiguous sections were acquired throughout the chest after intravenous administration of 100 cc of Omnipaque 350. Dose reduction technique was used on this scan by utilizing automated expos ure control and iterative reconstruction technique. The dose-length product (DLP) was 909.35 mGy-cm. COMPARISON: 05/26/2023 Findings: There is no evidence of any significant mediastinal, hilar or axillary lymphadenopathy. There is no f illing defect in the pulmonary arterial tree to suggest pulmonary embolus. There is no evidence of ao rtic dissection or aneurysm. There is no evidence of pleural or pericardial effusion. Pulmonary nodules or consolidations are overall increased in size from prior exam. There is a 3.5 cm left apical nodule/consolidation with focal central cavitation. There is a 2.7 cm peripheral right up per lobe nodule with mild surrounding patchy airspace opacification. There is a 2.8 cm right middle l obe pulmonary nodule. There is a 2.9 cm pulmonary nodule in the medial left lower lobe. Images through the upper abdomen reveal no abnormalities. Impression: No evidence of pulmonary embolus, aortic dissection, or aortic aneurysm. Enlarging bilateral pulmonary nodules, as detailed above, one of which demonstrates focal cavitation. Findings are consistent with interval progression of pneumonia/septic emboli. Metastatic disease les s likely given the rapid interval increase in size. Reviewed, dictated and finalized at [facility]. Impression: No evidence of pulmonary embolus, aortic dissection, or aortic aneurysm. Enlarging bilateral pulmonary nodules, as detailed above, one of which demonstr ates focal cavitation. Findings are consistent with interval progression of pne umonia/septic emboli. Metastatic disease less likely given the rapid interval i ncrease in size.
--- NOTE | ~2023-06-27 | XR_ITS ---
XR chest 1V portable 06/29/2023 07:39 Indication: Sudden onset of chest pain Procedure: AP portable chest Comparison: Comparison to multiple prior studies sequentially, with oldest reviewed study dated 04/30. Findings: Interval enlargement of bilateral pulmonary masses. Hazy bilateral interstitial infiltrates . No significant effusion or pneumothorax. No acute osseous abnormality. Impression: 1: Enlarging bilateral pulmonary nodules/masses which may be secondary to infection or metastatic dis ease. Reviewed, dictated and finalized at location A. Impression: 1: Enlarging bilateral pulmonary nodules/masses which may be secondary to infec tion or metastatic disease.
[2023-06-27 12:55] LABS: Basophils Absolute Auto 0.1 K/mm3 (0.0-0.1); Basophils Percent Auto 0.8 % (0.2-1.2); Eosinophils Absolute Auto 0.3 K/mm3 (0-0.3); Eosinophils Percent Auto 2.5 % (0-4.4); Hematocrit 36.9 % (42.0-52.0); Hemoglobin 12.1 g/dL (14.0-18.0); Immature Granulocyte Absolute 0.03 K/mm3 (0.00-0.031); Immature Granulocyte Percent A 0.3 % (0-0.5); Lymphocytes Absolute Auto 1.54 K/mm3 (0.9-3.2); Lymphocytes Percent Auto 12.9 % (18.3-44.2); Mean Corpuscular HGB Conc 32.8 g/dl (32-36); Mean Corpuscular Hemoglobin 29.3 pg (26-34); Mean Corpuscular Volume 89.3 fl (80-100); Mean Platelet Volume 9.8 fl (7.4-10.4); Monocytes Absolute Auto 0.9 K/mm3 (0.1-0.6); Monocytes Percent Auto 7.4 % (2.6-8.5); Neutrophils Absolute Auto 9.1 K/mm3 (1.3-6.7); Neutrophils Percent Auto 76.1 % (45.5-73.1); Platelet Count Result 263 k/mm3 (150-375); Red Blood Count 4.13 M/mm3 (4.6-6.20); Red Cell Distribution Width 13.4 % (11.5-14.5); White Blood Count 11.9 K/mm3 (4.5-10.0)
[2023-06-27 13:11] LABS: Prothrombin Time 13.1 Seconds (11.1-14.7)
[2023-06-27 13:12] LABS: Partial Thromboplastin Time 32.9 Seconds (22.3-36.8)
[2023-06-27 13:17] LABS: Alanine Aminotransferase 12 U/L (6-50); Calcium 9.9 mg/dL (8.4-10.2); Carbon Dioxide 28 mmol/L (22-30); Chloride 104 mmol/L (98-107)
[2023-06-27 13:36] LABS: Albumin Level 3.9 g/dL (3.5-5.1); Alkaline Phosphatase 45 U/L (38-126); Anion Gap 4 mmol/L (8-16); Aspartate Amino Transferase 23 U/L (17-59); Bilirubin,Total 0.4 mg/dL (0.2-1.3); Blood Urea Nitrogen 17 mg/dL (9-20); Glucose 97 mg/dL (65-110); Potassium 4.3 mmol/L (3.4-5.0); Sodium 136 mmol/L (137-145)
[2023-06-27 14:53] LABS: Estimated CRCL calculation 107 ml/min; Estimated Glomerular Filt Rate > 60
--- NOTE | 2023-06-27 15:25 | ED.SOB ---
HPI - SOB/Dyspnea General Chief Complaint: Shortness of Breath/Dyspnea Stated Complaint: coughing blood Time Seen by Provider: 06/27/23 12:07 History of Present Illness HPI Narrative: This is a 58-year-old male, with recent history of persistent pneumonia, who presents to the emergency department complaining of hemoptysis for the past 5 days. The patient states in April, he underwent a surgical procedure that was complicated shortly thereafter by pneumonia. He states despite antibiotics and initial improvement his symptoms recurred turned and was started on a separate course of antibiotics. He states he continues to have cough but is now having small amounts of bright red blood. He denies other bleeding, worsening shortness of breath, chest pain, lightheadedness or loss of consciousness. He has no other complaints at this time. Related Data Home Medications Medication Instructions Recorded Confirmed famotidine 40 mg tablet 40 mg PO HS 06/27/23 06/27/23 hydralazine 100 mg tablet 100 mg PO Q12H 06/27/23 06/27/23 psyllium husk 0.4 gram capsule 0.4 g PO DAILY 06/27/23 06/27/23 (Daily Fiber) Allergies Allergy/AdvReac Type Severity Reaction Status Date / Time oxycodone Allergy Severe Rash, Verified 06/27/23 11:25 ITCHING tetracycline Allergy Severe VOMITING, Verified 06/27/23 11:25 DIARRHEA Penicillins AdvReac Severe N/V Verified 06/27/23 11:25 Review of Systems Review of Systems: CONSTITUTIONAL: Denies fever, chills, or sweats. CARDIOVASCULAR: Denies chest pain, palpitations, or edema. RESPIRATORY: Cough with hemoptysis and sputum Denies dyspnea. GASTROINTESTINAL: Denies abdominal pain, nausea, vomiting, or diarrhea. GENITOURINARY: Denies dysuria or hematuria. SKIN: Denies rash or itching. MUSCULOSKELETAL: Denies back pain, joint pain, or myalgia. NEUROLOGIC: Denies headache, numbness, dizziness, or weakness. PSYCHIATRIC: Denies anxiety or depression. [facility] Past Medical History Medical History Benign essential hypertension Clostridium difficile diarrhea (2020) Erectile dysfunction Headaches due to old head injury Hyperlipidemia Prostate cancer Status post radical prostatectomy. Renal cell carcinoma Status post partial left nephrectomy. Surgical History Surgical History History of arthroscopy of both shoulders History of cholecystectomy History of incisional hernia repair (09/2021) History of kidney surgery History of Adeola fundoplication (04/30/23) Robotic assisted laparoscopic History of partial nephrectomy Left partial nephrectomy for RCC. History of radical prostatectomy Prostate cancer. History of surgery on wrist ORIF left wrist fracture. Family History Family History Grandparent Cerebrovascular accident Hypertension Mother Diabetes mellitus Heart disease Social History Social History Social History: Surrogate medical decision maker: Davy Stanley, spouse. Code status: Full code. Smoking packs per day: 1 Smoking cigarettes per day: 20.0 Years smoked: 44 Smoking pack-years: 44.00 Smoking status: Current every day smoker Tobacco type: cigarettes Second hand tobacco smoke exposure: Yes Alcohol intake: never Drinks per week: 4 Alcohol use details: occasional Substance use: never Substance use type: does not use Do You Feel Safe in your Home?: No Lack of Transportation: No Lack of Food: Never True Current Housing: I Have Housing Concerned About Future Housing: No Difficulty Paying Gas/Electric Bills: No Difficulty Paying for Meds: No Currently Unemployed: No Education: High School Diploma/GED Difficulty w/ Childcare or Family Care: No Living arrangements: with family Spiritual care concerns: No
[2023-06-27] MEDS: cefTRIAXone 2 GM/NS 100 ML 2 GM/100 ML BAG IVPB (15:40)
[2023-06-27] MEDS: VANCOMYCIN 1,250 MG/NS 250 ML 1,250 MG/250 ML BAG 166.67 MG IVPB ×2 (16:11→17:58)
--- NOTE | 2023-06-27 16:51 | PM.IMHP ---
H&P: HPI History of Present Illness Date/Time: 06/27/23 17:00 Chief Complaint: Coughing up blood. Narrative: This is a 58-year-old male with hypertension, hyperlipidemia, Hamilton's esophagus, refractory GERD symptoms status post Adeola fundoplication, renal cell carcinoma status post partial nephrectomy, and prostate cancer status post prostatectomy who presented to the emergency department for evaluation of hemoptysis. The patient provides the following history. He had a robotic assisted laparoscopic Adeola fundoplication on 04/30/[address] Berumen and has been doing well postoperatively and has not had issues with acid reflux or difficulties swallowing. Several weeks after the surgery he developed pleuritic right-sided chest pain with mild shortness of breath, cough productive of clear sputum, and fever of 102.5?. Chest CTA on 05/26/2023 showed no evidence of PE and a few scattered patchy/nodular airspace opacities in both lungs likely representing pneumonia (recommended short interval follow-up imaging) and he was given a 5 day course of cefpodoxime and a Z-Oscar. He continues to have some shortness of breath following treatment and occasional nonproductive cough but he is overall feeling better. On Friday he began coughing up small amounts of bright red blood with clots and he has done so intermittently since that time. He has lost 20 lb since his surgery and reports minimal if any discomfort at his operative site. He has not had a recent fever and denies chills, sweats, sinus congestion, sore throat, pleuritic pain, sensations of racing heart, nausea, vomiting, and diarrhea. He denies recent travel, sick contacts, or exposure or treatment for tuberculosis. No history of IV drug use, congenital heart disease or defects, dental infections, autoimmune disease, or use of immunosuppressant drugs. In the ED: He was afebrile on arrival with stable vital signs. SpO2 has been in the upper 90s on room air. WBC count was 11.9 but is other labs were pretty unremarkable. Chest CTA today was negative for pulmonary embolus, dissection, and aneurysm but did show enlarging bilateral pulmonary nodules (1 of which demonstrates focal cavitation) with findings consistent with interval progression of pneumonia/septic emboli and less likely metastatic disease given rapid interval increase in size. He was given a dose of ceftriaxone and vancomycin and is being admitted in this setting for further treatment. Review of Systems Review of Systems: Twelve systems were reviewed and are negative except for as per HPI. [facility] Past Medical History Medical History Benign essential hypertension Clostridium difficile diarrhea (2020) Erectile dysfunction Headaches due to old head injury Hyperlipidemia Prostate cancer Status post radical prostatectomy. Renal cell carcinoma Status post partial left nephrectomy. Surgical History Surgical History History of arthroscopy of both shoulders History of cholecystectomy History of incisional hernia repair (09/2021) History of kidney surgery History of Adeola fundoplication (04/30/23) Robotic assisted laparoscopic History of partial nephrectomy Left partial nephrectomy for RCC. History of radical prostatectomy Prostate cancer. History of surgery on wrist ORIF left wrist fracture. Family History Family History Grandparent Cerebrovascular accident Hypertension Mother Diabetes mellitus Heart disease Social History Social History Social History: Surrogate medical decision maker: Davy Stanley, spouse. Code status: Full code. Smoking packs per day: 1 Smoking cigarettes per day: 20.0 Years smoked: 44 Smoking pack-years: 44.00 Smoking status: Current every day smoker Tobacco type
--- NOTE | 2023-06-27 17:10 | ADMGEN ---
This patient, Marin Stanley, was admitted to Medical Room 340-01. Patient/family oriented to hospital policies and general routines including ID bracelet, bed and alarms, visiting hours, pain management, procedures, bathroom and other care routines, personal items, smoking policy, room service/diet, and visiting hours. Information on how to activate the Rapid Response Team has been discussed. Patient/Family are encouraged to report perceived risks to care and to ask questions if they do not understand what they are told or what they should do.
[2023-06-27 18:45] LABS: MRSA (PCR) NOT DETECTED (NOT DETECTE)
[2023-06-27] MEDS: metroNIDAZOLE 500 MG/ISO 100ML 500 MG/100 ML BAG 100 MG IVPB (20:29)
[2023-06-27] MEDS: NORTRIPTYLINE HCL 25 MG CAPSULE 50 MG PO (23:53)
[2023-06-27] MEDS: FAMOTIDINE 20 MG TABLET 40 MG PO (23:53)
[2023-06-27] MEDS: GABAPENTIN 300 MG CAPSULE 600 MG PO (23:53)
[2023-06-28] VITALS (9 sets, daily range): BP systolic 134–151; BP diastolic 62–75; PULSE 74–94; RESP 14–24; TEMP 36.4–36.8; O2SAT 93–98
[2023-06-28] MEDS: metroNIDAZOLE 500 MG/ISO 100ML 500 MG/100 ML BAG 100 MG IVPB ×3 (03:24→20:22)
[2023-06-28 05:59] LABS: Basophils Absolute Auto 0.1 K/mm3 (0.0-0.1); Basophils Percent Auto 0.6 % (0.2-1.2); Eosinophils Absolute Auto 0.3 K/mm3 (0-0.3); Eosinophils Percent Auto 2.6 % (0-4.4); Hematocrit 34.2 % (42.0-52.0); Hemoglobin 11.1 g/dL (14.0-18.0); Immature Granulocyte Absolute 0.04 K/mm3 (0.00-0.031); Immature Granulocyte Percent A 0.4 % (0-0.5); Lymphocytes Absolute Auto 1.15 K/mm3 (0.9-3.2); Lymphocytes Percent Auto 10.5 % (18.3-44.2); Mean Corpuscular HGB Conc 32.5 g/dl (32-36); Mean Corpuscular Hemoglobin 29.4 pg (26-34); Mean Corpuscular Volume 90.5 fl (80-100); Mean Platelet Volume 9.9 fl (7.4-10.4); Monocytes Absolute Auto 0.9 K/mm3 (0.1-0.6); Monocytes Percent Auto 8.1 % (2.6-8.5); Neutrophils Absolute Auto 8.5 K/mm3 (1.3-6.7); Neutrophils Percent Auto 77.8 % (45.5-73.1); Platelet Count Result 260 k/mm3 (150-375); Red Blood Count 3.78 M/mm3 (4.6-6.20); Red Cell Distribution Width 13.4 % (11.5-14.5)
[2023-06-28 06:12] LABS: Anion Gap 3 mmol/L (8-16); Blood Urea Nitrogen 17 mg/dL (9-20); Calcium 9.2 mg/dL (8.4-10.2); Carbon Dioxide 28 mmol/L (22-30); Chloride 105 mmol/L (98-107); Estimated CRCL calculation 96 ml/min; Estimated Glomerular Filt Rate > 60; Glucose 117 mg/dL (65-110); Potassium 4.2 mmol/L (3.4-5.0); Sodium 136 mmol/L (137-145)
[2023-06-28] MEDS: MONTELUKAST SODIUM 10 MG TABLET PO (08:43)
[2023-06-28] MEDS: PRAVASTATIN SODIUM 20 MG TABLET 40 MG PO (08:43)
[2023-06-28] MEDS: PANTOPRAZOLE 40 MG TABLET BY MOUTH (08:43)
[2023-06-28] MEDS: hydrALAZINE HCL 50 MG TABLET 100 MG PO ×3 (08:43→17:45)
[2023-06-28] MEDS: PSYLLIUM POWDER PACKET 1 PACKET BY MOUTH (08:44)
[2023-06-28] MEDS: amLODIPine BESYLATE 5 MG TABLET 10 MG PO (08:44)
[2023-06-28] MEDS: FLUTICASONE PROPIONATE 0.05% NA SPR 16 GM BTL (*BKC) 1 SPRAY NASAL ×2 (08:44→20:23)
[2023-06-28] MEDS: LORATADINE 10 MG TABLET PO (08:49)
--- NOTE | 2023-06-28 10:53 | PCSTNOTE ---
MBSS completed. Cursory oral peripheral examination results within functional limits. Barium contrast material in thin, mildly thick, moderately thick, pureed, mixed, and solid consistency in varying amounts (3 ml, 5 ml, uncontrolled by cup, and uncontrolled by straw) was presented. Swallowing ability within functional limits with all consistencies. No penetration or aspiration observed. Mild residue was noted in upper esophageus with pureed consistency only, which cleared with follow up swallow. Recommendation: minced moist diet (current diet texture) and thin liquids. No further speech therapy is recommended. Thank you for the referral of this patient.
[2023-06-28] MEDS: VANCOMYCIN 1,500 MG/NS 500 ML 1,500 MG/500 ML BAG 250 MG IVPB (11:10)
[2023-06-28] MEDS: cefTRIAXone 2 GM/NS 100 ML 2 GM/100 ML BAG IVPB (15:55)
[2023-06-28] MEDS: NICOTINE (*PBKC) 21 MG PATCH 1 PATCH TRANSDERM (15:55)
--- NOTE | 2023-06-28 16:23 | PM.IMPN ---
Progress Note: A&P Assessment and Plan (1) Hemoptysis: Code(s): R04.2 - Hemoptysis Status: Acute (2) Pneumonia: Code(s): J18.9 - Pneumonia, unspecified organism Status: Acute (3) Septic pulmonary embolism: Qualifiers: Acute cor pulmonale presence: unspecified Chronicity: acute Qualified Code(s): I26.90 - Septic pulmonary embolism without acute cor pulmonale Code(s): I26.90 - Septic pulmonary embolism without acute cor pulmonale Status: Acute (4) Benign essential hypertension: Code(s): I10 - Essential (primary) hypertension Status: Acute (5) Chronic GERD: Code(s): K21.9 - Gastro-esophageal reflux disease without esophagitis Status: Acute (6) Hyperlipidemia: Code(s): E78.5 - Hyperlipidemia, unspecified Status: Acute Plan The patient is status post Adeola fundoplication on 04/30/2023 and several weeks thereafter he had a chest CTA for evaluation of pleuritic pain, cough, and fever which showed findings suggestive of pneumonia with a differential to include possible metastatic disease. He was treated with cefpodoxime with some improvement although developed hemoptysis the last few days and hence presents to the ED on 06/27/2023. Laboratory evaluation revealed WBC count 11.9 hemoglobin of 12.1 chemistries unremarkable. Chest CTA was negative for pulmonary embolism but did show enlarging pulmonary nodules, 1 of which demonstrates focal cavitation, and these findings are consistent with interval progression of pneumonia/septic emboli. He has been started on broad-spectrum antibiotics including vancomycin, ceftriaxone, and metronidazole. The sputum culture. Check Legionella and pneumococcal antigens as well as mycoplasma IgM and QuantiFERON gold, Source of septic emboli is not entirely clear. He had recent surgery as above but has rebounded nicely from that. He is not having any GERD symptoms and is tolerating a diet however will obtain a modified swallow study to rule out silent aspiration which came back negative. Echocardiogram with CS 65-70% grade 1 diastolic dysfunction [id number] tricuspid regurgitation mild pulmonary hypertension. No vegetations were noted. Blood cultures have been obtained and are pending. Pulmonology has been consulted. Add azithromycin for atypical coverage. Change to cefepime to cover Pseudomonas History of renal cancer status post partial nephrectomy several years ago History of prostate cancer status post prostatectomy Subjective Date/time seen: 06/28/23 16:23 Interval history: Cough is improving with less blood in it no shortness of breath no chest pain Review of Systems Review of Systems: All systems reviewed & are unremarkable except as noted in HPI and below Exam Narrative: General: Well-developed, nontoxic-appearing male in the semi-Johansen position in bed. HEENT: Normocephalic, atraumatic. PERRL, EOMI. Sclera anicteric. Oral mucosa moist. Oropharynx clear. Neck: Supple. No JVD or lymphadenopathy. Respiratory: Respirations are nonlabored and he is speaking in full sentences. Lung sounds are a bit coarse bilaterally but are otherwise clear to auscultation. Cardiovascular: Regular rate and rhythm with S1-S2. Soft systolic murmur at the left sternal border. Gastrointestinal: Abdomen is soft, protuberant, nontender, and nondistended with positive bowel sounds. Skin: Warm and dry. No splinter hemorrhages, Janeway lesions, or Osler's nodes. Extremities: No cyanosis, clubbing, or edema. Radial and pedal pulses intact. No palpable knots or cords. Neurological: Alert. Cranial nerves 2-12 are grossly intact. No gross focal deficits to casual conversation. Psychiatric: Pleasant and cooperative with normal mood and affect. Judgment and insight intact. Objective Data Vital Signs Vital Signs: Vital Signs - 24 hr 06/27/23 17:35 06/27/23 18:00 06/27/23 17:28 Temperature 97.1 F L Pulse Rate 82 87
[2023-06-28] MEDS: AZITHROMYCIN 500 MG/NS 250 ML 500 MG/250 ML BAG 250 MG IVPB (17:46)
--- NOTE | 2023-06-28 17:57 | ECHO_ITS ---
Patient Info Name: Marin Stanley Age: 58 years : 1965 Gender: Male Ht: 69 in Wt: 248 lbs BSA: 2.38 m2 HR: 78 bpm BP: 134 / 62 mmHg Heart Rhythm: Sinus Rhythm Technical Quality: Fair Exam Date: 06/28/2023 8:01 AM Exam Location: Echo Lab Exam Room: 340 Patient Status: Inpatient Admit Date: 06/27/2023 Staff Ordering Physician: Griselda Wright PA-C [employer]cb Draftsman: Patricia Zacarias RDCS Attending Provider: Latasha Sykes MD Referring Physician: Kyle MONTAGUE; Exam Type: CA echo doppler color flow Study Info Indications - pneumonia septic emboli/sob Complete two-dimensional, color flow and Doppler transthoracic echocardiogram is performed. Summary 1. Complete two-dimensional, color flow and Doppler transthoracic echocardiogram is performed. 2. Left ventricular chamber dimension is normal. 3. Left ventricular systolic function is normal, estimated at 65-70%. 4. There is mildly increased left ventricular wall thickness. 5. The left ventricular diastolic function is grade I diastolic dysfunction. 6. There is mild mitral valve regurgitation. 7. There is mild to moderate tricuspid valve regurgitation. 8. Mild pulmonary hypertension, estimated pulmonary arterial systolic pressure is 36 mmHg. Left Ventricle Left ventricular chamber dimension is normal. Left ventricular systolic function is normal, estimated at 65-70%. There is mildly increased left ventricular wall thickness. The left ventricular diastolic function is grade I diastolic dysfunction. Right Ventricle Right ventricular chamber dimension is normal. Right ventricular systolic function is normal. Left Atria Left atrial chamber dimension is normal. Right Atria Right atrial chamber dimension is normal. Atrial Septum Intact interatrial septum visualized by color flow imaging. Aortic Valve The aortic valve is trileaflet. There is mild aortic valve sclerosis. There is no aortic valve stenosis. There is trace aortic valve regurgitation. Pulmonic Valve The pulmonic valve is normal. There is no pulmonic valve stenosis. There is trace pulmonic regurgitation. Mitral Valve The mitral valve has thickened leaflets. There is no mitral valve stenosis. There is mild mitral valve regurgitation. Tricuspid Valve The tricuspid valve leaflets are normal. There is no significant tricuspid valve stenosis. There is mild to moderate tricuspid valve regurgitation. Mild pulmonary hypertension, estimated pulmonary arterial systolic pressure is 36 mmHg. Pericardium/Pleural The pericardium appears normal. There is no pericardial effusion. Inferior Vena Cava Normal inferior vena cava with >50% collapse upon inspiration consistent with normal right atrial pressure, 10 mmHg. Aorta The aortic root size at the sinus of Valsalva is normal. Left Ventricular Outflow Tract Name Value Normal LVOT 2D LVOT Diameter 2.1 cm LVOT Doppler LVOT Peak Gradient 5 mmHg LVOT Mean Gradient 2 mmHg LVOT VTI 19 cm LVOT VTI/AV VTI Ratio 0.7 LVOT Stroke Volume 68 ml LVOT CO
[2023-06-28] MEDS: FAMOTIDINE 20 MG TABLET 40 MG PO (20:23)
[2023-06-28] MEDS: GABAPENTIN 300 MG CAPSULE 600 MG PO (20:23)
[2023-06-28] MEDS: NORTRIPTYLINE HCL 25 MG CAPSULE 50 MG PO (20:23)
[2023-06-28] MEDS: CEFEPIME 2 GM/NS 50 ML 2 GM/50 ML BAG IVPB (21:42)
[2023-06-28] MEDS: VANCOMYCIN 1,500 MG/NS 500 ML 1,500 MG/500 ML BAG 125 MG IVPB (22:19)
[2023-06-29] VITALS (10 sets, daily range): BP systolic 142–164; BP diastolic 68–78; PULSE 75–115; RESP 20–22; TEMP 36.5–37.3; O2SAT 95–99
[2023-06-29] MEDS: CEFEPIME 2 GM/NS 50 ML 2 GM/50 ML BAG IVPB ×3 (05:17→22:05)
[2023-06-29] MEDS: metroNIDAZOLE 500 MG/ISO 100ML 500 MG/100 ML BAG 100 MG IVPB ×3 (05:58→20:51)
[2023-06-29] MEDS: ACETAMINOPHEN 325 MG TABLET 650 MG PO (06:04)
[2023-06-29 06:27] LABS: Basophils Absolute Auto 0.1 K/mm3 (0.0-0.1); Basophils Percent Auto 0.7 % (0.2-1.2); Eosinophils Absolute Auto 0.3 K/mm3 (0-0.3); Eosinophils Percent Auto 3.1 % (0-4.4); Hematocrit 34.3 % (42.0-52.0); Hemoglobin 10.8 g/dL (14.0-18.0); Immature Granulocyte Absolute 0.03 K/mm3 (0.00-0.031); Immature Granulocyte Percent A 0.3 % (0-0.5); Mean Corpuscular HGB Conc 31.5 g/dl (32-36); Mean Corpuscular Hemoglobin 28.8 pg (26-34); Mean Corpuscular Volume 91.5 fl (80-100); Mean Platelet Volume 10.1 fl (7.4-10.4); Monocytes Absolute Auto 0.8 K/mm3 (0.1-0.6); Monocytes Percent Auto 8.7 % (2.6-8.5); Neutrophils Absolute Auto 6.2 K/mm3 (1.3-6.7); Neutrophils Percent Auto 70.2 % (45.5-73.1); Platelet Count Result 264 k/mm3 (150-375); Red Blood Count 3.75 M/mm3 (4.6-6.20); White Blood Count 8.8 K/mm3 (4.5-10.0)
[2023-06-29 06:44] LABS: Alanine Aminotransferase 11 U/L (6-50); Albumin Level 3.4 g/dL (3.5-5.1); Alkaline Phosphatase 39 U/L (38-126); Anion Gap 3 mmol/L (8-16); Aspartate Amino Transferase 16 U/L (17-59); Bilirubin,Total 0.3 mg/dL (0.2-1.3); Blood Urea Nitrogen 16 mg/dL (9-20); Calcium 9.2 mg/dL (8.4-10.2); Carbon Dioxide 28 mmol/L (22-30); Chloride 107 mmol/L (98-107); Estimated CRCL calculation 96 ml/min; Estimated Glomerular Filt Rate > 60; Glucose 107 mg/dL (65-110); Potassium 3.9 mmol/L (3.4-5.0); Sodium 138 mmol/L (137-145)
--- NOTE | 2023-06-29 07:23 | ECG_ITS ---
Measurements Intervals [place] Rate: 78 P: 23 WV: 144 QRS: 30 QRSD: 114 T: 38 QT: 378 QTc: 431 Interpretive Statements SINUS RHYTHM INTRAVENTRICULAR CONDUCTION DELAY CONSIDER INFERIOR INFARCT, AGE INDETERMINATE BASELINE ARTIFACT- V1 ABNORMAL ECG COMPARED TO ECG 03/21/2023 11:02:31 NO SIGNIFICANT CHANGES Electronically Signed On 06-29-2023 7:51:42 CDT by Fareed Hernandez D.O.
[2023-06-29] MEDS: MORPHINE SULFATE (*CRX) 2 MG/ML INJ IV PUSH ×3 (07:43→15:28)
[2023-06-29] MEDS: FLUTICASONE PROPIONATE 0.05% NA SPR 16 GM BTL (*BKC) 1 SPRAY NASAL ×2 (08:24→20:52)
[2023-06-29] MEDS: PSYLLIUM POWDER PACKET 1 PACKET BY MOUTH (08:24)
[2023-06-29] MEDS: NICOTINE (*PBKC) 21 MG PATCH 1 PATCH TRANSDERM (08:24)
[2023-06-29] MEDS: MONTELUKAST SODIUM 10 MG TABLET PO (08:24)
[2023-06-29] MEDS: amLODIPine BESYLATE 5 MG TABLET 10 MG PO (08:25)
[2023-06-29] MEDS: LORATADINE 10 MG TABLET PO (08:25)
[2023-06-29] MEDS: PANTOPRAZOLE 40 MG TABLET BY MOUTH (08:25)
[2023-06-29] MEDS: PRAVASTATIN SODIUM 20 MG TABLET 40 MG PO (08:25)
[2023-06-29] MEDS: hydrALAZINE HCL 50 MG TABLET 100 MG PO ×3 (08:25→17:34)
[2023-06-29 10:37] LABS: Vancomycin Trough 14.5 ug/mL (10.0-20.0)
--- NOTE | 2023-06-29 11:17 | PM.IMPN ---
Progress Note: A&P Assessment and Plan (1) Hemoptysis: Code(s): R04.2 - Hemoptysis Status: Acute (2) Pneumonia: Code(s): J18.9 - Pneumonia, unspecified organism Status: Acute (3) Septic pulmonary embolism: Qualifiers: Acute cor pulmonale presence: unspecified Chronicity: acute Qualified Code(s): I26.90 - Septic pulmonary embolism without acute cor pulmonale Code(s): I26.90 - Septic pulmonary embolism without acute cor pulmonale Status: Acute (4) Benign essential hypertension: Code(s): I10 - Essential (primary) hypertension Status: Acute (5) Chronic GERD: Code(s): K21.9 - Gastro-esophageal reflux disease without esophagitis Status: Acute (6) Hyperlipidemia: Code(s): E78.5 - Hyperlipidemia, unspecified Status: Acute Plan The patient is status post Adeola fundoplication on 04/30/2023 and several weeks thereafter he had a chest CTA for evaluation of pleuritic pain, cough, and fever which showed findings suggestive of pneumonia with a differential to include possible metastatic disease. He was treated with cefpodoxime with some improvement although developed hemoptysis the last few days and hence presents to the ED on 06/27/2023. Laboratory evaluation revealed WBC count 11.9 hemoglobin of 12.1 chemistries unremarkable. Chest CTA was negative for pulmonary embolism but did show enlarging pulmonary nodules, 1 of which demonstrates focal cavitation, and these findings are consistent with interval progression of pneumonia/septic emboli. He has been started on broad-spectrum antibiotics including vancomycin, ceftriaxone, and metronidazole. The sputum culture pending. Check Legionella and pneumococcal antigens as well as mycoplasma IgM and QuantiFERON gold, Source of septic emboli is not entirely clear. He had recent surgery as above but has rebounded nicely from that. He is not having any GERD symptoms and is tolerating a diet however will obtain a modified swallow study to rule out silent aspiration which came back negative. Echocardiogram with CS 65-70% grade 1 diastolic dysfunction [id number] tricuspid regurgitation mild pulmonary hypertension. No vegetations were noted. Blood cultures have been obtained and are pending. Pulmonology has been consulted. Add azithromycin for atypical coverage. Change to cefepime to cover Pseudomonas. MRSA nares negative. Vancomycin will be discontinued. History of renal cancer status post partial nephrectomy several years ago History of prostate cancer status post prostatectomy Subjective Date/time seen: 06/29/23 11:17 Interval history: Patient had sharp shooting pain in his left lower chest that radiated upward to her neck and also arm. EKG was unremarkable. Chest x-ray with enlarging bilateral pulmonary nodules/masses this could be secondary to infection or metastatic disease. Improved with morphine coughing is been no more blood noted in the sputum Review of Systems Review of Systems: All systems reviewed & are unremarkable except as noted in HPI and below Exam Narrative: General: Well-developed, nontoxic-appearing male in the semi-Johansen position in bed. HEENT: Normocephalic, atraumatic. PERRL, EOMI. Sclera anicteric. Oral mucosa moist. Oropharynx clear. Neck: Supple. No JVD or lymphadenopathy. Respiratory: Respirations are nonlabored and he is speaking in full sentences. Lung sounds are a bit coarse bilaterally but are otherwise clear to auscultation. Cardiovascular: Regular rate and rhythm with S1-S2. Soft systolic murmur at the left sternal border. Gastrointestinal: Abdomen is soft, protuberant, nontender, and nondistended with positive bowel sounds. Skin: Warm and dry. No splinter hemorrhages, Janeway lesions, or Osler's nodes. Extremities: No cyanosis, clubbing, or edema. Radial and pedal pulses intact. No palpable knots or cords. Neurological: Alert. Cranial nerves 2-12 are grossly intact.
[2023-06-29] MEDS: AZITHROMYCIN 500 MG/NS 250 ML 500 MG/250 ML BAG 250 MG IVPB (17:34)
--- NOTE | 2023-06-29 19:01 | PM.CNPUL ---
Assessment and Plan Assessment and plan (1) Septic pulmonary embolism: Qualifiers: Acute cor pulmonale presence: unspecified Chronicity: acute Qualified Code(s): I26.90 - Septic pulmonary embolism without acute cor pulmonale Code(s): I26.90 - Septic pulmonary embolism without acute cor pulmonale Status: Acute Assessment and Plan: Initially noted May 26 on CAT; had fever and cough with pleuritic chest pain a week before the CTA, treated with cefpodoxime and azithromycin; the Z-pack was repeated. These areas are larger with cavitation; no source for the origin of the emboli has been identified. He has no dental or skin lesions, no indwelling devices, has not had PICC or midline catheter. He has new left pleural effusion, too small to tap. This is concerning for pulmonary infarction with bleeding into the pleural space. His work up included echo with mild-mod TR, not much else acute. The QuantiFERON Gold, pneumococcal antigen, Legionella antigens, mycoplasma IgM are pending. He is on antibiotics including vancomycin which was stopped, azithromycin and Cefepime. (2) Hemoptysis: Code(s): R04.2 - Hemoptysis Status: Acute Assessment and Plan: Mild, due to septic emboli with infarction. Plan He has enlarging septic emboli, May 26 initially noted and treated as pneumonia after Adeola on Apr 30 for GERD. On June 26, these are larger and the DAREN emboli is cavitating. He appears to have pulmonary infarction with pleuritic pain, cough with hemoptysis, without a source identified. He has no (+) cultures. This may be due to antibiotics since early May. He has [id number] TR on 2D echo. He may need a transesophageal echo to look at his valves for vegetations not visible on 2D echo. With his recent Adeola procedure in April, could he have pseudohemoptysis, blood from GI tract. He may require multidisciplinary management with Infectious Diseases, cardiology, thoracic team. I discussed with Dr Szymanski the possibility of a transfer. Mrs. Stanley understands, requests either [facility] or [facility] or [facility]. I will order 1. UA in the presence of hemoptysis to evaluate pulmonary renal syndromes. 2. ELIZABETH cascade for autoimmune conditions including vasculitis; mother had SLE 3. Cornet valve to help expectorate secretions; Sputum studies have been ordered for bacteria, fungal and AFB. 4. BNP; look at cardiac dysfunction with hemoptysis History of Present Illness History of Present Illness Consult date: 06/29/23 Requesting physician: Kyle Szymanski MD Chief complaint: Septic Pulmonary Emboli Narrative: The patient was seen June 28 19:15, and son, Marin at bedside. NEW: Marin Stanley is a 6=58-year-old man with Adeola fundoplication in 04/20/2023. it was unremarkable, he felt better having this surgery. Several weeks later, he developed pleuritic chest pain in the lung bases with cough and fever. Chest CTA 05/26/2023 showed no PE; he had small areas of irregular densities in both lungs DAREN 2.1x1.4, RUL 1.4 cm, RML 2.7x1.4 cm, 4x3 pleural-based density with spiculated margins in the paraspinal posterior basilar segment. THe differential was pneumonia vs metastatic disease, and he was treated for pneumonia with azithromycin and cefpodoxime. He has a repeat course of azithromycin, never completely got well. He came to the hospital June 26, wbc 11.9 k, CTA showed no PE; the same areas from 05/26 are larger with the DAREN lesion cavitating. He has scant blood streaked sputum and worsening pleuritic chest pain, cannot lie on his back due to pain. He is getting Dilaudid with incomplete pain control. He received vancomycin, ceftriaxone and metronidazole. An echo showed no vegetations; he has [id number] tricuspid regurgitation. He has sep
[2023-06-29] MEDS: HYDROmorphone HCL INJ (*CRX) 1 MG/ML SYR IV PUSH ×2 (19:47→23:03)
[2023-06-29] MEDS: FAMOTIDINE 20 MG TABLET 40 MG PO (20:52)
[2023-06-29] MEDS: GABAPENTIN 300 MG CAPSULE 600 MG PO (20:53)
[2023-06-29] MEDS: NORTRIPTYLINE HCL 25 MG CAPSULE 50 MG PO (20:53)
[2023-06-30] VITALS (14 sets, daily range): BP systolic 127–141; BP diastolic 65–68; PULSE 88–104; RESP 16–18; TEMP 36.4–37.1; O2SAT 93–98
[2023-06-30] MEDS: HYDROmorphone HCL INJ (*CRX) 1 MG/ML SYR IV PUSH ×6 (02:08→20:48)
[2023-06-30] MEDS: metroNIDAZOLE 500 MG/ISO 100ML 500 MG/100 ML BAG 100 MG IVPB ×3 (03:14→20:47)
[2023-06-30] MEDS: CEFEPIME 2 GM/NS 50 ML 2 GM/50 ML BAG IVPB ×3 (05:18→22:00)
[2023-06-30 06:17] LABS: Basophils Absolute Auto 0.1 K/mm3 (0.0-0.1); Basophils Percent Auto 0.6 % (0.2-1.2); Eosinophils Absolute Auto 0.1 K/mm3 (0-0.3); Hematocrit 34.2 % (42.0-52.0); Hemoglobin 10.7 g/dL (14.0-18.0); Immature Granulocyte Absolute 0.04 K/mm3 (0.00-0.031); Immature Granulocyte Percent A 0.4 % (0-0.5); Lymphocytes Absolute Auto 0.74 K/mm3 (0.9-3.2); Lymphocytes Percent Auto 7.9 % (18.3-44.2); Mean Corpuscular HGB Conc 31.3 g/dl (32-36); Mean Corpuscular Hemoglobin 28.5 pg (26-34); Mean Corpuscular Volume 91.2 fl (80-100); Monocytes Absolute Auto 1.1 K/mm3 (0.1-0.6); Monocytes Percent Auto 11.1 % (2.6-8.5); Neutrophils Absolute Auto 7.4 K/mm3 (1.3-6.7); Platelet Count Result 266 k/mm3 (150-375); Red Blood Count 3.75 M/mm3 (4.6-6.20); Red Cell Distribution Width 13.2 % (11.5-14.5); White Blood Count 9.4 K/mm3 (4.5-10.0)
[2023-06-30 06:30] LABS: Alanine Aminotransferase 325 U/L (6-50); Albumin Level 3.6 g/dL (3.5-5.1); Alkaline Phosphatase 125 U/L (38-126); Anion Gap 5 mmol/L (8-16); Aspartate Amino Transferase 355 U/L (17-59); Bilirubin,Total 1.3 mg/dL (0.2-1.3); Blood Urea Nitrogen 15 mg/dL (9-20); Calcium 9.1 mg/dL (8.4-10.2); Carbon Dioxide 26 mmol/L (22-30); Chloride 105 mmol/L (98-107); Estimated CRCL calculation 107 ml/min; Estimated Glomerular Filt Rate > 60; Glucose 130 mg/dL (65-110); Potassium 3.9 mmol/L (3.4-5.0); Sodium 136 mmol/L (137-145)
[2023-06-30 06:40] LABS: NT Pro B Type Natriuretic Pept 214 pg/mL (19.9-100)
[2023-06-30] MEDS: NICOTINE (*PBKC) 21 MG PATCH 1 PATCH TRANSDERM (09:58)
[2023-06-30] MEDS: PRAVASTATIN SODIUM 20 MG TABLET 40 MG PO (09:59)
[2023-06-30] MEDS: LORATADINE 10 MG TABLET PO (09:59)
[2023-06-30] MEDS: FLUTICASONE PROPIONATE 0.05% NA SPR 16 GM BTL (*BKC) 1 SPRAY NASAL ×2 (09:59→20:48)
[2023-06-30] MEDS: PANTOPRAZOLE 40 MG TABLET BY MOUTH (09:59)
[2023-06-30] MEDS: hydrALAZINE HCL 50 MG TABLET 100 MG PO ×3 (09:59→17:15)
[2023-06-30] MEDS: amLODIPine BESYLATE 5 MG TABLET 10 MG PO (09:59)
[2023-06-30] MEDS: MONTELUKAST SODIUM 10 MG TABLET PO (10:01)
--- NOTE | 2023-06-30 10:58 | PM.PNPUL ---
Progress Note: A&P Assessment and Plan (1) Septic pulmonary embolism: Qualifiers: Acute cor pulmonale presence: unspecified Chronicity: acute Qualified Code(s): I26.90 - Septic pulmonary embolism without acute cor pulmonale Code(s): I26.90 - Septic pulmonary embolism without acute cor pulmonale Status: Acute Assessment and Plan: These areas were initially noted Fe [address] with fever, cough with pleuritic chest beulah, symptoms started a week before the CTA, treated with cefpodoxime and azithromycin; the Z-pack was repeated. These areas are larger with cavitation; no source for the origin of the emboli has been identified. He has no dental or skin lesions, no indwelling devices, has not had PICC or midline catheter.? He has new left pleural effusion, too small to tap. This is concerning for pulmonary infarction with bleeding into the pleural space.? Echo =mild-mod TR. The QuantiFERON Gold, pneumococcal antigen, Legionella antigens, mycoplasma IgM still are pending. Vancomycin was stopped, needs to be re-started with cavitation in DAREN lesion. Also on azithromycin and Cefepime. Sputum is dark yellow-green. Will order sputum studies with his ability to expectorate more secretions. (2) Hemoptysis: Code(s): R04.2 - Hemoptysis Status: Acute Assessment and Plan: None overnight. Last hemoptysis was Friday night June 27. His hemoptysis is from pulmonary infarction; UA pending to evaluate renal pulmonary syndromes, ELIZABETH cascade pending (3) Emphysema of lung: Code(s): J43.9 - Emphysema, unspecified Status: Acute Assessment and Plan: Mild emphysema radiographically; smoked 1 ppd for years, last cigarette was day of admission. Nicotine path in place, no cravings. Will add bronchodilator for productive cough, untreated obstructive airways, and to improve pulmonary hygiene. He used albuterol at home, has not been on controller therapy. Says he does not have productive cough when he is not sick, denies shortness of breath, denies wheezing. Plan sputum studies- Gram stain c&s, fungal and AFB studies restart Vancomycin for cavitation in DAREN septic emboli add albuterol nebulized for pulmonary hygiene, continue Cornet valve PFTs 6-8 weeks after discharge Probable transfer to higher level care for septic emboli; d/w Dr Szymanski Subjective Date/time seen: 06/30/23 10:58 Interval history: hospital follow up : 06/30/2023; He feels better this morning, good pain relief but still has pleuritic pain in the left posterior chest radiating to the left shoulder. Vibratory valve is helping him expectorate greenberg sputum. He remains on room air, saturation is 93%. I am planning to re-start Vancomycin as the cavitation in the DAREN lesion is concerning for Staph. d/w Dr Szymanski; he initiated transfer this morning, has not heard back from accepting facility. 06/29/2023 new consult;?Marin Stanley is a [age]-year-old man with Adeola fundoplication in 04/20/2023.? it was unremarkable, he felt better having this surgery. Several weeks later, he developed pleuritic chest pain in the lung bases with cough and fever. Chest CTA 05/26/2023 showed no PE; he had small areas of irregular densities in both lungs DAREN 2.1x1.4, RUL 1.4 cm, RML 2.7x1.4 cm, 4x3 pleural-based density with spiculated margins in the paraspinal posterior basilar segment. THe differential was pneumonia vs metastatic disease, and he was treated for pneumonia with azithromycin and cefpodoxime. He has a repeat course of azithromycin, never completely got well.? He came to the hospital June 26, wbc 11.9 k, CTA showed no PE; the same areas from 05/26 are larger with the DAREN lesion cavitating. He has scant blood streaked sputum and worsening pleuritic chest pain,
--- NOTE | 2023-06-30 12:53 | PM.IMPN ---
Progress Note: A&P Assessment and Plan (1) Hemoptysis: Code(s): R04.2 - Hemoptysis Status: Acute (2) Pneumonia: Code(s): J18.9 - Pneumonia, unspecified organism Status: Acute (3) Septic pulmonary embolism: Qualifiers: Acute cor pulmonale presence: unspecified Chronicity: acute Qualified Code(s): I26.90 - Septic pulmonary embolism without acute cor pulmonale Code(s): I26.90 - Septic pulmonary embolism without acute cor pulmonale Status: Acute (4) Benign essential hypertension: Code(s): I10 - Essential (primary) hypertension Status: Acute (5) Chronic GERD: Code(s): K21.9 - Gastro-esophageal reflux disease without esophagitis Status: Acute (6) Hyperlipidemia: Code(s): E78.5 - Hyperlipidemia, unspecified Status: Acute Plan The patient is status post Adeola fundoplication on 04/30/2023 and several weeks thereafter he had a chest CTA for evaluation of pleuritic pain, cough, and fever which showed findings suggestive of pneumonia with a differential to include possible metastatic disease. He was treated with cefpodoxime with some improvement although developed hemoptysis the last few days and hence presents to the ED on 06/27/2023. Laboratory evaluation revealed WBC count 11.9 hemoglobin of 12.1 chemistries unremarkable. Chest CTA was negative for pulmonary embolism but did show enlarging pulmonary nodules, 1 of which demonstrates focal cavitation, and these findings are consistent with interval progression of pneumonia/septic emboli. He has been started on broad-spectrum antibiotics including vancomycin, ceftriaxone, and metronidazole. The sputum culture pending. Check Legionella and pneumococcal antigens as well as mycoplasma IgM and QuantiFERON gold, Source of septic emboli is not entirely clear. He had recent surgery as above but has rebounded nicely from that. He is not having any GERD symptoms and is tolerating a diet however will obtain a modified swallow study to rule out silent aspiration which came back negative. Echocardiogram with CS 65-70% grade 1 diastolic dysfunction [id number] tricuspid regurgitation mild pulmonary hypertension. No vegetations were noted. Blood cultures have been obtained and are negative to date. Pulmonology has been consulted. Add azithromycin for atypical coverage. Change to cefepime to cover Pseudomonas. MRSA nares negative. Vancomycin discontinued however has been restarted. Pulmonary consultation appreciated. Suggested transfer to higher facility for involvement of CT surgery as well as Infectious Disease. Discussed with [facility] and has been accepted at [facility] History of renal cancer status post partial nephrectomy several years ago History of prostate cancer status post prostatectomy Subjective Date/time seen: 06/30/23 12:53 Interval history: No overnight events. Pain is better. Still getting IV pain medication discussed with [facility] accepted at [facility] Review of Systems Review of Systems: All systems reviewed & are unremarkable except as noted in HPI and below Exam Narrative: General: Well-developed, nontoxic-appearing male in the semi-Johansen position in bed. HEENT: Normocephalic, atraumatic. PERRL, EOMI. Sclera anicteric. Oral mucosa moist. Oropharynx clear. Neck: Supple. No JVD or lymphadenopathy. Respiratory: Respirations are nonlabored and he is speaking in full sentences. Lung sounds are a bit coarse bilaterally but are otherwise clear to auscultation. Cardiovascular: Regular rate and rhythm with S1-S2. Soft systolic murmur at the left sternal border. Gastrointestinal: Abdomen is soft, protuberant, nontender, and nondistended with positive bowel sounds. Skin: Warm and dry. No splinter hemorrhages, Janeway lesions, or Osler's nodes. Extremities: No cyanosis, clubbing, or edema. Radial and pedal pulses intact. No palpable knots or cords.
[2023-06-30] MEDS: VANCOMYCIN 1,750 MG/NS 500 ML 1,750 MG/500 ML BAG 250 MG IVPB (13:24)
[2023-06-30] MEDS: ALBUTEROL SULFATE NEB 2.5 MG/3 ML INH INHALATION ×2 (13:43→19:30)
[2023-06-30] MEDS: AZITHROMYCIN 500 MG/NS 250 ML 500 MG/250 ML BAG 250 MG IVPB (17:15)
[2023-06-30] MEDS: NORTRIPTYLINE HCL 25 MG CAPSULE 50 MG PO (20:48)
[2023-06-30] MEDS: FAMOTIDINE 20 MG TABLET 40 MG PO (20:48)
[2023-06-30] MEDS: GABAPENTIN 300 MG CAPSULE 600 MG PO (20:48)
[2023-06-30 22:50] LABS: Bacteria Urine None Seen /hpf; Non Pathogenic Casts 0-2; RBC Urine 0-2 /hpf (0-2); Squamous Epithelial Cell Urine None Seen /hpf (Few); WBC Urine 0-5 /hpf (0-3)
[2023-06-30 22:54] LABS: Appearance Urine Clear (Clear); Bilirubin Urine 1+ (Negative); Blood Urine Negative (Negative); Color Urine Yellow (Yellow); Glucose Urine UA Negative (Negative); Ketones Urine Trace mg/dL (Negative); Leukocyte Esterase Ur Negative LEU/UL (Negative); Nitrate Urine Negative (Negative); Protein Urine 1+ mg/dL (Negative); Urobilinogen Urine 0.2 mg/dL (<2.0)
[2023-06-30 22:57] LABS: Add Urine Microscopic? YES
[2023-07-01] VITALS (18 sets, daily range): BP systolic 134–148; BP diastolic 64–77; PULSE 92–116; RESP 16–18; TEMP 36.4–36.9; O2SAT 91–97
[2023-07-01] MEDS: HYDROmorphone HCL INJ (*CRX) 1 MG/ML SYR IV PUSH ×8 (00:15→21:04)
[2023-07-01] MEDS: VANCOMYCIN 1,750 MG/NS 500 ML 1,750 MG/500 ML BAG 125 MG IVPB ×2 (00:15→13:53)
[2023-07-01] MEDS: ALBUTEROL SULFATE NEB 2.5 MG/3 ML INH INHALATION ×4 (01:38→19:59)
[2023-07-01] MEDS: SODIUM CHLOR 3% 15 ML NEB (RESPIRATORY THERAPY) 6 ML INHALATION (04:30)
[2023-07-01] MEDS: CEFEPIME 2 GM/NS 50 ML 2 GM/50 ML BAG IVPB ×3 (05:16→23:10)
[2023-07-01] MEDS: metroNIDAZOLE 500 MG/ISO 100ML 500 MG/100 ML BAG 100 MG IVPB ×3 (06:05→20:55)
[2023-07-01 06:18] LABS: Basophils Absolute Auto 0.1 K/mm3 (0.0-0.1); Basophils Percent Auto 0.5 % (0.2-1.2); Eosinophils Absolute Auto 0.2 K/mm3 (0-0.3); Eosinophils Percent Auto 2.3 % (0-4.4); Hematocrit 32.6 % (42.0-52.0); Hemoglobin 10.2 g/dL (14.0-18.0); Immature Granulocyte Absolute 0.03 K/mm3 (0.00-0.031); Immature Granulocyte Percent A 0.3 % (0-0.5); Lymphocytes Percent Auto 8.5 % (18.3-44.2); Mean Corpuscular HGB Conc 31.3 g/dl (32-36); Mean Corpuscular Hemoglobin 28.6 pg (26-34); Mean Corpuscular Volume 91.3 fl (80-100); Mean Platelet Volume 9.8 fl (7.4-10.4); Monocytes Absolute Auto 1.1 K/mm3 (0.1-0.6); Monocytes Percent Auto 11.6 % (2.6-8.5); Neutrophils Absolute Auto 7.3 K/mm3 (1.3-6.7); Neutrophils Percent Auto 76.8 % (45.5-73.1); Platelet Count Result 251 k/mm3 (150-375); Red Blood Count 3.57 M/mm3 (4.6-6.20); Red Cell Distribution Width 13.2 % (11.5-14.5); White Blood Count 9.5 K/mm3 (4.5-10.0)
[2023-07-01 06:34] LABS: Alanine Aminotransferase 210 U/L (6-50); Albumin Level 3.4 g/dL (3.5-5.1); Alkaline Phosphatase 114 U/L (38-126); Anion Gap 4 mmol/L (8-16); Aspartate Amino Transferase 91 U/L (17-59); Bilirubin,Total 0.5 mg/dL (0.2-1.3); Blood Urea Nitrogen 15 mg/dL (9-20); Calcium 8.9 mg/dL (8.4-10.2); Carbon Dioxide 25 mmol/L (22-30); Chloride 106 mmol/L (98-107); Estimated CRCL calculation 123 ml/min; Estimated Glomerular Filt Rate > 60; Glucose 118 mg/dL (65-110); Potassium 3.8 mmol/L (3.4-5.0); Sodium 135 mmol/L (137-145)
[2023-07-01] MEDS: hydrALAZINE HCL 50 MG TABLET 100 MG PO ×3 (09:00→17:07)
[2023-07-01] MEDS: NICOTINE (*PBKC) 21 MG PATCH 1 PATCH TRANSDERM (09:01)
[2023-07-01] MEDS: FLUTICASONE PROPIONATE 0.05% NA SPR 16 GM BTL (*BKC) 1 SPRAY NASAL ×2 (09:01→20:56)
[2023-07-01] MEDS: MONTELUKAST SODIUM 10 MG TABLET PO (09:01)
[2023-07-01] MEDS: LORATADINE 10 MG TABLET PO (09:01)
[2023-07-01] MEDS: PANTOPRAZOLE 40 MG TABLET BY MOUTH (09:01)
[2023-07-01] MEDS: PRAVASTATIN SODIUM 20 MG TABLET 40 MG PO (09:01)
[2023-07-01] MEDS: amLODIPine BESYLATE 5 MG TABLET 10 MG PO (09:01)
--- NOTE | 2023-07-01 11:16 | PC.NURSE ---
RN gave update to transfer center for [facility]. No beds available at this time.
--- NOTE | 2023-07-01 12:47 | PM.IMPN ---
Progress Note: A&P Assessment and Plan (1) Hemoptysis: Code(s): R04.2 - Hemoptysis Status: Acute (2) Pneumonia: Code(s): J18.9 - Pneumonia, unspecified organism Status: Acute (3) Septic pulmonary embolism: Qualifiers: Acute cor pulmonale presence: unspecified Chronicity: acute Qualified Code(s): I26.90 - Septic pulmonary embolism without acute cor pulmonale Code(s): I26.90 - Septic pulmonary embolism without acute cor pulmonale Status: Acute (4) Benign essential hypertension: Code(s): I10 - Essential (primary) hypertension Status: Acute (5) Chronic GERD: Code(s): K21.9 - Gastro-esophageal reflux disease without esophagitis Status: Acute (6) Hyperlipidemia: Code(s): E78.5 - Hyperlipidemia, unspecified Status: Acute Plan The patient is status post Adeola fundoplication on 04/30/2023 and several weeks thereafter he had a chest CTA for evaluation of pleuritic pain, cough, and fever which showed findings suggestive of pneumonia with a differential to include possible metastatic disease. He was treated with cefpodoxime with some improvement although developed hemoptysis the last few days and hence presents to the ED on 06/27/2023. Laboratory evaluation revealed WBC count 11.9 hemoglobin of 12.1 chemistries unremarkable. Chest CTA was negative for pulmonary embolism but did show enlarging pulmonary nodules, 1 of which demonstrates focal cavitation, and these findings are consistent with interval progression of pneumonia/septic emboli. He has been started on broad-spectrum antibiotics including vancomycin, ceftriaxone, and metronidazole. The sputum culture pending. Check Legionella and pneumococcal antigens as well as mycoplasma IgM and QuantiFERON gold, Source of septic emboli is not entirely clear. He had recent surgery as above but has rebounded nicely from that. He is not having any GERD symptoms and is tolerating a diet however will obtain a modified swallow study to rule out silent aspiration which came back negative. Echocardiogram with CS 65-70% grade 1 diastolic dysfunction [id number] tricuspid regurgitation mild pulmonary hypertension. No vegetations were noted. Blood cultures have been obtained and are negative to date. Pulmonology has been consulted. Add azithromycin for atypical coverage. Change to cefepime to cover Pseudomonas. MRSA nares negative. Vancomycin discontinued however has been restarted. Pulmonary consultation appreciated. Suggested transfer to higher facility for involvement of CT surgery as well as Infectious Disease. Discussed with [facility] and has been accepted at [facility]. Awaiting bed placement History of renal cancer status post partial nephrectomy several years ago History of prostate cancer status post prostatectomy Subjective Date/time seen: 07/01/23 12:47 Interval history: No overnight events. Pain is better. Breathing is okay. Coughing with phlegm continues left sided chest pain persist needing IV pain medication Review of Systems Review of Systems: All systems reviewed & are unremarkable except as noted in HPI and below Exam Narrative: General: Well-developed, nontoxic-appearing male in the semi-Johansen position in bed. HEENT: Normocephalic, atraumatic. PERRL, EOMI. Sclera anicteric. Oral mucosa moist. Oropharynx clear. Neck: Supple. No JVD or lymphadenopathy. Respiratory: Respirations are nonlabored and he is speaking in full sentences. Lung sounds are a bit coarse bilaterally but are otherwise clear to auscultation. Cardiovascular: Regular rate and rhythm with S1-S2. Soft systolic murmur at the left sternal border. Gastrointestinal: Abdomen is soft, protuberant, nontender, and nondistended with positive bowel sounds. Skin: Warm and dry. No splinter hemorrhages, Janeway lesions, or Osler's nodes. Extremities: No cyanosis, clubbing, or edema. Radial and pedal puls
[2023-07-01 13:03] LABS: NIL 0.02 IU/mL; Quantiferon TB Plus, 1T NEGATIVE (NEGATIVE); TB1-NIL 0.18 IU/mL; TB2-NIL 0.24 IU/mL
[2023-07-01 13:30] LABS: Mycoplasma IgM Antibody Titer 329 U/mL (<770)
[2023-07-01] MEDS: AZITHROMYCIN 500 MG/NS 250 ML 500 MG/250 ML BAG 250 MG IVPB (17:06)
[2023-07-01] MEDS: HYDROcodone/acetaminophen (*CRX) 5-325 MG TABLET 1 TAB PO (17:14)
[2023-07-01 17:28] LABS: Pneumococcal Antigen Urine Not Detected (Not Detected)
--- NOTE | 2023-07-01 19:57 | PM.TDS ---
Transfer Discharge Sum: Prov Provider Date of admission: 06/29/23 12:36 Primary care physician: Pipe Vivar MD Admitting clinician: Latasha Sykes MD Consults: 06/27/23 Consult to Physician Routine Comment: Consulting Provider: Jenni Salazar call circuit worker/MD group to consult: Spoke with Dr Salazar on 06/28/23 at 1630. MD will review and possibly see patient tomorrow. Reason for consultation: Septic Pulmonary Embolism Has provider been notified: Yes DS: Admitting Diagnosis Discharge Date 07/02/23 Admitting Diagnosis Pneumonia DS: Discharge Diagnosis Discharge Diagnosis (1) Hemoptysis: Code(s): R04.2 - Hemoptysis Status: Acute (2) Pneumonia: Code(s): J18.9 - Pneumonia, unspecified organism Status: Acute (3) Septic pulmonary embolism: Qualifiers: Acute cor pulmonale presence: unspecified Chronicity: acute Qualified Code(s): I26.90 - Septic pulmonary embolism without acute cor pulmonale Code(s): I26.90 - Septic pulmonary embolism without acute cor pulmonale Status: Acute (4) Benign essential hypertension: Code(s): I10 - Essential (primary) hypertension Status: Acute (5) Chronic GERD: Code(s): K21.9 - Gastro-esophageal reflux disease without esophagitis Status: Acute (6) Hyperlipidemia: Code(s): E78.5 - Hyperlipidemia, unspecified Status: Acute Transfer Discharge Sum: Med Medications Active and Home Medications: Home Medications valsartan 320 mg-hydrochlorothiazide 25 mg tablet See Rx Instructions .Route .COMPLEX #90 tabs 12/23/22 [Rx Confirmed 06/27/23] fluticasone propionate 50 mcg/actuation nasal spray,suspension See Rx Instructions .Route .COMPLEX #16 grams 01/21/23 [Rx Confirmed 06/27/23] amlodipine 10 mg tablet (Norvasc) 10 mg PO DAILY #90 tabs 01/22/23 [Rx Confirmed 06/27/23] loratadine 10 mg tablet (Allergy Relief (loratadine)) 10 mg PO DAILY #30 tabs 01/22/23 [Rx Confirmed 06/27/23] meloxicam 7.5 mg tablet See Rx Instructions .Route .COMPLEX #90 tabs 10/18/23 [Rx Confirmed 06/27/23] montelukast 10 mg tablet 10 mg PO DAILY #90 tabs 01/22/23 [Rx Confirmed 06/27/23] nortriptyline 50 mg capsule 50 mg PO HS #90 caps 01/22/23 [Rx Confirmed 06/27/23] pantoprazole 40 mg tablet,delayed release See Rx Instructions .Route .COMPLEX #90 tabs 01/22/23 [Rx Confirmed 06/27/23] tadalafil 5 mg tablet (Cialis) 5 mg PO DAILY #90 tabs 01/22/23 [Rx Confirmed 06/27/23] gabapentin 300 mg capsule 600 mg PO HS #180 caps 02/17/23 [Rx Confirmed 06/27/23] pravastatin 40 mg tablet 40 mg PO DAILY #90 tabs 03/12/23 [Rx Confirmed 06/27/23] tirzepatide 5 mg/0.5 mL subcutaneous pen injector (Mounjaro) 5 mg (0.5 mL) subcut WEEKLY #2 mL 05/13/23 [Rx Confirmed 06/27/23] famotidine 40 mg tablet 40 mg PO HS 06/27/23 [History Confirmed 06/27/23] hydralazine 100 mg tablet 100 mg PO Q12H 06/27/23 [History Confirmed 06/27/23] psyllium husk 0.4 gram capsule (Daily Fiber) 0.4 g PO DAILY 06/27/23 [History Confirmed 06/27/23] Transfer Discharge Sum: Hosp Hospital Course Hospital course: Marin Stanley is a 58 year old male who is status post Adeola fundoplication on 04/30/2023 and several weeks thereafter he had a chest CTA for evaluation of pleuritic pain, cough, and fever which showed findings suggestive of pneumonia with a differential to include possible metastatic disease. He was treated with cefpodoxime with some improvement although developed hemoptysis the last few days and hence presents to the ED on 06/27/2023.? Laboratory evaluation revealed WBC count 11.9 hemoglobin of 12.1 chemistries unremarkable.? Chest CTA was negative for pulmonary embolism but did show enlarging pulmonary nodules, 1 of which demonstrates focal cavitation, and these findings are consistent with interval progression of pneumonia/septic emboli. He has been started on broad-spectrum antibiotics including vancomycin, ceftriaxone, and metronidazo
[2023-07-01] MEDS: GABAPENTIN 300 MG CAPSULE 600 MG PO (20:56)
[2023-07-01] MEDS: FAMOTIDINE 20 MG TABLET 40 MG PO (20:58)
[2023-07-01] MEDS: NORTRIPTYLINE HCL 25 MG CAPSULE 50 MG PO (20:58)
[2023-07-02] VITALS: PULSE 105
[2023-07-02] MEDS: HYDROmorphone HCL INJ (*CRX) 1 MG/ML SYR IV PUSH ×2 (00:07→03:17)
[2023-07-02 01:29] LABS: Vancomycin Trough 10.1 ug/mL (10.0-20.0)
--- NOTE | 2023-07-02 01:56 | PCRCNOTE ---
Pt refused his 0200 breathing tx, informing RT that he is about to be transferred to [facility] this morning
[2023-07-02] MEDS: HYDROcodone/acetaminophen (*CRX) 5-325 MG TABLET 1 TAB PO (01:59)
[2023-07-03 00:01] LABS: Legionella pneumophila Ag Ur Not Detected (Not Detected)
== END 2023-07-02 03:29 | disposition short-term general hospital (02) | DRG 193 ==
LOC: ANHED 15:27 → ANH3MED 16:24
PROVIDERS: Internal Medicine Critical Care Medicine; Physician Assistant; Admitting Provider General Practice; Emergency Provider Preventive Medicine Aerospace Medicine; PCP Family Medicine; Visit Provider Internal Medicine
DX: J18.9 Pneumonia, unspecified organism (principal); I26.90 Septic pulmonary embolism without acute cor pulmonale; R04.2 Hemoptysis; J43.9 Emphysema, unspecified; K21.9 Gastro-esophageal reflux disease without esophagitis; I10 Essential (primary) hypertension; E78.5 Hyperlipidemia, unspecified; R73.03 Prediabetes; F17.210 Nicotine dependence, cigarettes, uncomplicated; Z90.79 Acquired absence of other genital organ(s); Z90.5 Acquired absence of kidney; Z85.46 Personal history of malignant neoplasm of prostate; Z85.528 Personal history of other malignant neoplasm of kidney; Z90.49 Acquired absence of other specified parts of digestive tract
CPT/HCPCS: 36415; 71045; 71275; 74174; 80048; 80053; 80202; 81001; 83735; 83880; 85025; 85610; 85730; 86480; 86738; 87040; 87070; 87102; 87106; 87205; 87206; 87449; 87641; 87899; 92611; 93005; 93306; 94640; 94667; 96365; 96366; 96367; 96376; 99285; A9270; G0378; J0456; J0692; J0696; J1170; J1836; J2270; J3370; Q9967

== ENCOUNTER 2023-08-26 08:36 | Outpatient (CLI) | payer BC, SELFPAY ==
[2023-08-26 09:43] LABS: Toxigenic C. Diff NEGATIVE (NEGATIVE)
== END 2023-08-26 08:37 | disposition home or self-care (01) ==
LOC: ANHLAB 08:38
PROVIDERS: PCP Family Medicine; Visit Provider Nurse Practitioner Family
DX: R19.7 Diarrhea, unspecified (principal)
CPT/HCPCS: 87045; 87177; 87209; 87427; 87449; 87493

== ENCOUNTER 2024-04-09 22:19 | Observation (INO) | payer BC, SELFPAY ==
--- NOTE | ~2024-04-09 | XR_ITS ---
XR chest 2V Ordering provider: Ciro Padron MD History: 58 years Male with . chest pain . Comparison: June 30, 2023 FINDINGS: MEDIASTINUM: The cardiac silhouette is not enlarged. LUNGS: No infiltrates, effusions or pneumothorax. Previously seen masses are not demonstrated. OTHER: No free air under the diaphragm. Degenerative changes of the spine. IMPRESSION: Previously seen masses are not demonstrated. No acute cardiopulmonary pathology. Reviewed, dictated and finalized at location A. [employer]GER
--- NOTE | ~2024-04-09 | CT_ITS ---
CTA chest PE protocol Ordering provider: Ciro Padron MD History: 58 years Male with . Chest pain, shortness of breath, elevated troponin . Comparison: None. Technique: CT angiogram chest was performed following timed intravenous injection of contrast. Thin s lice axial images and reformatted coronal images were obtained. Three dimensional reformatted images of the chest were also obtained using a [employer] workstation. . Automated exposure control and iterati ve reconstruction technique were employed. The dose-length product was 685.98 mGy-cm. 100 mL Omnipaqu e 350 was given IV. Findings: PULMONARY ARTERIES: No pulmonary embolus. VISUALIZED THORACIC INLET: Normal. MEDIASTINUM: Aorta/coronary arteries: Mild atheromatous disease. Heart/other: The heart is not enlarged. Lymph nodes: No mediastinal or hilar adenopathy. LUNGS: 8 mm nodule is seen in the right upper lobe. Three-month follow-up CT scan is advised. No pulmonary m asses. No infiltrates or effusions. No pneumothorax. VISUALIZED UPPER ABDOMEN: Status post cholecystectomy. Hypodensity seen in the wall of the stomach wh ich may be a lipoma. Further evaluation advised. Slightly prominent CBD. Small hypodensity in the lef t and right kidney most likely small cysts. Small lymph nodes around the head of the pancreas are not ed with the largest measures 1.3 cm. Otherwise, the visualized upper abdomen is normal. MUSCULOSKELETAL: Soft tissues: The superficial soft tissues are normal. Bones: Age appropriate degenerative changes of the spine. IMPRESSION: 1. No pulmonary embolism. 2. No acute cardiopulmonary pathology. 3. Nodules in the right and left upper lobes. 3 months follow-up CT scan is advised. 4. Hypodensity in the wall of the stomach. Further evaluation advised. 5. Borderline lymph nodes surrounding the head of the pancreas. Reviewed, dictated and finalized at location A. 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 No pulmonary embolism. 2. No acute cardiopulmonary pathology. 3. Nodules in the right and left upper lobes. 3 months follow-up CT scan is ad vised. 4. Hypodensity in the wall of the stomach. Further evaluation advised. 5. Borderline lymph nodes surrounding the head of the pancreas.
--- NOTE | 2024-04-09 22:26 | ECG_ITS ---
Test Date: 2024-04-09 22:30:18 Measurements Intervals [place] Rate: 77 P: 58 IN: 165 QRS: 23 QRSD: 112 T: 17 QT: 371 QTc: 421 Interpretive Statements SINUS RHYTHM POSSIBLE INFERIOR MYOCARDIAL INFARCTION , PROBABLY OLD [30 ms Q WAVE IN II/aVF] No previous ECG available for comparison Electronically Signed On 04-13-2024 17:52:07 [facility] by Carina Negron M.D.
[2024-04-09 22:56] VITALS: BP 157/70; PULSE 77; RESP 16; TEMP 36.2; O2SAT 100
[2024-04-09 22:57] LABS: Basophils Absolute Auto 0.1 K/mm3 (0.0-0.1); Eosinophils Absolute Auto 0.1 K/mm3 (0-0.3); Eosinophils Percent Auto 1.2 % (0-4.4); Hematocrit 38.2 % (42.0-52.0); Hemoglobin 12.8 g/dL (14.0-18.0); Immature Granulocyte Absolute 0.01 K/mm3 (0.00-0.031); Immature Granulocyte Percent A 0.1 % (0-0.5); Lymphocytes Absolute Auto 1.55 K/mm3 (0.9-3.2); Lymphocytes Percent Auto 21.3 % (18.3-44.2); Mean Corpuscular HGB Conc 33.5 g/dl (32-36); Mean Corpuscular Hemoglobin 30.1 pg (26-34); Mean Corpuscular Volume 89.9 fl (80-100); Mean Platelet Volume 10.2 fl (7.4-10.4); Monocytes Absolute Auto 0.6 K/mm3 (0.1-0.6); Monocytes Percent Auto 8.5 % (2.6-8.5); Neutrophils Absolute Auto 4.9 K/mm3 (1.3-6.7); Neutrophils Percent Auto 67.9 % (45.5-73.1); Platelet Count Result 182 k/mm3 (150-375); Red Blood Count 4.25 M/mm3 (4.6-6.20); White Blood Count 7.3 K/mm3 (4.5-10.0)
[2024-04-09 23:08] LABS: Alanine Aminotransferase 19 U/L (6-50); Albumin Level 4.3 g/dL (3.5-5.1); Alkaline Phosphatase 41 U/L (38-126); Anion Gap 3 mmol/L (4-12); Aspartate Amino Transferase 25 U/L (17-59); Bilirubin,Total 0.3 mg/dL (0.2-1.3); Blood Urea Nitrogen 19 mg/dL (9-20); Calcium 9.6 mg/dL (8.4-10.2); Carbon Dioxide 27 mmol/L (22-30); Chloride 106 mmol/L (98-107); Estimated CRCL calculation 98 ml/min; Estimated Glomerular Filt Rate > 60; Glucose 93 mg/dL (65-110); INR 0.9; Lipase 86 U/L (23-300); Potassium 3.9 mmol/L (3.4-5.0); Prothrombin Time 12.5 Seconds (11.1-14.7); Sodium 136 mmol/L (137-145)
[2024-04-09 23:09] LABS: Partial Thromboplastin Time 28.5 Seconds (22.3-36.8)
[2024-04-09 23:42] LABS: Troponin I 0.049 ng/mL (0.000-0.034)
[2024-04-10] VITALS (7 sets, daily range): BP systolic 159–168; BP diastolic 74–87; PULSE 71–101; RESP 18–20; TEMP 36.7; O2SAT 97–100; BMI 38.5
[2024-04-10] MEDS: ASPIRIN 81 MG CHEWABLE TABLET 324 MG PO (00:36)
[2024-04-10] MEDS: NITROGLYCERIN SL 0.4 MG TABLET SUBLINGUAL (00:37)
--- NOTE | 2024-04-10 00:58 | ED.GENADULT ---
HPI - General Adult General Chief complaint: Chest Pain Stated complaint: SOB, chest pain Time Seen by Provider: 04/10/24 00:18 History of Present Illness HPI narrative: Patient is a 58-year-old gentleman presents emergency department with chief complaint of chest pain. Patient reports that he was at work and started having some tightness in his chest patient reports that it is improved significantly but reports that he also had some discomfort in his left upper back in the area where he had a chest tube due to an empyema the patient reports that he has had no fever reports this feels similar to whenever he had pneumonia in the past Related Data Home Medications ?Medication ?Instructions ?Recorded ?Confirmed ?Last Taken ?Type psyllium husk 0.4 gram capsule 0.4 g PO DAILY 06/27/23 08/21/23 06/27/23 History (Daily Fiber) Allergies Allergy/AdvReac Type Severity Reaction Status Date / Time oxycodone Allergy Severe Rash, Verified 04/09/24 22:20 ITCHING Penicillins AdvReac Severe N/V Verified 04/09/24 22:20 tetracycline AdvReac Severe VOMITING, Verified 04/09/24 22:20 DIARRHEA Review of Systems Review of Systems: A 10 system review of systems was completed on the patient and is negative except for what is stated in the HPI. Nursing and ancillary documentation was reviewed. [facility] Past Medical History Medical History Prostate cancer Status post radical prostatectomy. Clostridium difficile diarrhea (2020) Hyperlipidemia Erectile dysfunction Headaches due to old head injury Renal cell carcinoma Status post partial left nephrectomy. Benign essential hypertension Surgical History Surgical History History of incisional hernia repair (09/2021) History of arthroscopy of both shoulders History of partial nephrectomy Left partial nephrectomy for RCC. History of radical prostatectomy Prostate cancer. History of Adeola fundoplication (04/30/23) Robotic assisted laparoscopic History of surgery on wrist ORIF left wrist fracture. History of cholecystectomy History of kidney surgery Family History Family History Grandparent Cerebrovascular accident Hypertension Mother Diabetes mellitus Heart disease Lupus Social History Social History Social History: Surrogate medical decision maker: Davy Stanley, spouse. Code status: Full code. Smoking packs per day: 1 Smoking cigarettes per day: 20.0 Years smoked: 44 Smoking pack-years: 44.00 Smoking status: Former smoker Tobacco type: cigarettes Second hand tobacco smoke exposure: Yes Smoking end date: 08/27/23 Alcohol intake: never Drinks per week: 4 Alcohol use details: occasional Substance use: never Substance use type: does not use Do You Feel Safe in your Home?: No Lack of Transportation: No Lack of Food: Never True Current Housing: I Have Housing Concerned About Future Housing: No Difficulty Paying Gas/Electric Bills: No Difficulty Paying for Meds: No Currently Unemployed: No Education: High School Diploma/GED Difficulty w/ Childcare or Family Care: No Living arrangements: with family Spiritual care concerns: No Exam Narrative: GENERAL: Well-appearing, well-nourished, and in no acute distress. HEAD: Normocephalic, atraumatic. EYES: PERRLA and EOMI. ENT: Nares clear, no rhinorrhea or epistaxis. Mucous membranes moist. NECK: Supple. CHEST: Clear to auscultation. No respiratory distress. HEART: Regular rate and rhythm. No murmur heard. Normal peripheral pulses. ABDOMEN: Soft, nontender, nondistended, normal active bowel sounds. EXTREMITIES: Normal range of motion. No edema. SKIN: Warm, dry, no rash. NEURO: No focal deficits. Alert and oriented x3. PSYCH: Normal mood and affect. Course Vital Signs Vital signs: Vital Signs Temperature 36.2 C L 04/09/24 22:56 Pulse Rate 77 04/09/24 22:56 Respiratory Rate 16 04/09/24 22:56 Blood Pressure 157/70 H 04/09/24 22:56 Pulse Oximetry 100 04/09/24 22:56 Temperature 36.2 C L 04/09/24 22:56 Pulse Rate 77 04/09/24 22:56 Respiratory Rate 16 04/09/24 22:56 Blood Pressure 157/70 H 04/09/24 22:56 Pulse Oximetry 100 04/09/24 22:56 Medical Decision Making [facility] Narrative Medical decision making narrative: Differential diagnosis includes ACS, pulmonary embolism, unstable angina Patient's pain was relieved in the emergency department EKG showed no acute ischemic changes. Initial troponin was slightly elevated 3 hour is also slightly increased CTA chest showed no evidence pulmonary embolism. Vital Signs Vital Signs: Vital Signs Temperature 36.2 C L 04/09/24 22:56 Pulse Rate 77 04/09/24 22:56 Respiratory Rate 16 04/09/24 22:56 Blood Pressure 157/70 H 04/09/24 22:56 Pulse Oximetry 100 04/09/24 22:56 Temperature 36.2 C L 04/09/24 22:56 Pulse Rate 77 04/09/24 22:56 Respiratory Rate 16 04/09/24 22:56 Blood Pressure 157/70 H 04/09/24 22:56 Pulse Oximetry 100 04/09/24 22:56 Lab Data 04/09/24 22:44 04/09/24 22:44 Labs: Lab Results 04/09/24 04/10/24 04/10/24 Range/Units 22:44 01:37 05:11 WBC 7.3 (4.5-10.0) K/mm3 RBC 4.25 L (4.6-6.20) M/mm3 Hgb 12.8 L (14.0-18.0) g/dL Hct 38.2 L (42.0-52.0) % MCV 89.9 (80-100) fl MCH 30.1 (26-34) pg MCHC 33.5 (32-36) g/dl RDW 13.0 (11.5-14.5) % Plt Count 182 (150-375) k/mm3 MPV 10.2 (7.4-10.4) fl Immature Gran % (Auto) 0.1 (0-0.5) % Neut % (Auto) 67.9 (45.5-73.1) % Lymph % (Auto) 21.3 (18.3-44.2) % [place] % (Auto) 8.5 (2.6-8.5) % Eos % (Auto) 1.2 (0-4.4) % Baso % (Auto) 1.0 (0.2-1.2) % Lymph # (Auto) 1.55 (0.9-3.2) K/mm3 [place] # (Auto) 0.6 (0.1-0.6) K/mm3 Eos # (Auto) 0.1 (0-0.3) K/mm3 Baso # (Auto) 0.1 (0.0-0.1) K/mm3 Abs Immat Gran (auto) 0.01 (0.00-0.031) K/mm3 Absolute Neuts (auto) 4.9 (1.3-6.7) K/mm3 Absolute Nucleated RBC 0.000 (0.0-0.012) K/mm3 Nucleated RBC % 0.0 (0.0-0.2) % PT 12.5 (11.1-14.7) Seconds INR 0.9 APTT 28.5 (22.3-36.8) Seconds Sodium 136 L (137-145) mmol/L Potassium 3.9 (3.4-5.0) mmol/L Chloride 106 (98-107) mmol/L Carbon Dioxide 27 (22-30) mmol/L Anion Gap 3 L (4-12) mmol/L BUN 19 (9-20) mg/dL Creatinine 0.90 (0.7-1.3) mg/dL Estim Creat Clear Calc 98 ml/min Estimated GFR > 60 (59 - ) Glucose 93 (65-110) mg/dL Calcium 9.6 (8.4-10.2) mg/dL Total Bilirubin 0.3 (0.2-1.3) mg/dL AST 25 (17-59) U/L ALT 19 (6-50) U/L Alkaline Phosphatase 41 (38-126) U/L Troponin I 0.049 H* 0.056 H* 0.059 H* (0.000-0.034) ng/mL Total Protein 8.0 (6.3-8.2) g/dL Albumin 4.3 (3.5-5.1) g/dL Lipase 86 (23-300) U/L Discharge Plan Discharge Clinical Impression: Chest pain, Elevated troponin Patient Disposition: Still a Patient Condition: Stable Patient Language: Wolof Prescriptions: No Action psyllium husk [Daily Fiber] 0.4 gram Capsule 0.4 g PO DAILY valsartan-hydrochlorothiazide 320-25 mg tablet See Rx Instructions .ROUTE .COMPLEX Qty: 90 1RF Dose Instruction: TAKE 1 TABLET DAILY Rx Instructions: TAKE 1 TABLET DAILY loratadine [Allergy Relief (loratadine)] 10 mg tablet 10 mg PO DAILY Qty: 30 2RF gabapentin 300 mg capsule See Rx Instructions .ROUTE .COMPLEX Qty: 180 3RF Dose Instruction: TAKE 2 CAPSULES (600 MG) AT BEDTIME Rx Instructions: TAKE 2 CAPSULES (600 MG) AT BEDTIME hydralazine 100 mg tablet See Rx Instructions .ROUTE .COMPLEX Qty: 270 3RF Dose Instruction: TAKE 1 TABLET THREE TIMES A DAY Rx Instructions: TAKE 1 TABLET THREE TIMES A DAY meloxicam 7.5 mg tablet See Rx Instructions .ROUTE .COMPLEX Qty: 90 1RF Dose Instruction: TAKE 1 TABLET TWICE A DAY WITH MEALS Rx Instructions: TAKE 1 TABLET TWICE A DAY WITH MEALS tadalafil [Cialis] 5 mg tablet 5 mg PO DAILY Qty: 90 1RF nortriptyline 50 mg capsule See Rx Instructions .ROUTE .COMPLEX Qty: 90 3RF Dose Instruction: TAKE 1 CAPSULE AT BEDTIME Rx Instructions: TAKE 1 CAPSULE AT BEDTIME pravastatin 40 mg tablet See Rx Instructions .ROUTE .COMPLEX Qty: 90 3RF Dose Instruction: TAKE 1 TABLET DAILY Rx Instructions: TAKE 1 TABLET DAILY montelukast 10 mg tablet See Rx Instructions .ROUTE .COMPLEX Qty: 90 3RF Dose Instruction: TAKE 1 TABLET DAILY Rx Instructions: TAKE 1 TABLET DAILY amlodipine 10 mg tablet See Rx Instructions .ROUTE .COMPLEX Qty: 90 3RF Dose Instruction: TAKE 1 TABLET DAILY Rx Instructions: TAKE 1 TABLET DAILY fluticasone propionate 50 mcg/actuation spray,suspension See Rx Instructions .ROUTE .COMPLEX Qty: 48 1RF Dose Instruction: USE 2 SPRAYS IN EACH NOSTRIL TWICE A DAY FOR 2 WEEKS Rx Instructions: USE 2 SPRAYS IN EACH NOSTRIL q12hr daily famotidine 40 mg tablet See Rx Instructions .ROUTE .COMPLEX Qty: 90 3RF Dose Instruction: TAKE 1 TABLET AT BEDTIME Rx Instructions: TAKE 1 TABLET AT BEDTIME Follow-up/Referrals: Pipe Vivar MD [Primary Care Provider] - Time of Disposition: 06:12
[2024-04-10 02:37] LABS: Troponin I 0.056 ng/mL (0.000-0.034)
[2024-04-10 05:50] LABS: Troponin I 0.059 ng/mL (0.000-0.034)
[2024-04-10] MEDS: ASPIRIN 81 MG CHEWABLE TABLET PO (08:54)
--- NOTE | 2024-04-10 10:41 | P.HP_ITS ---
H&P: HPI History of Present Illness Date/Time: 04/10/24 10:41 Chief Complaint: chest pain Narrative: Patient is a 58 year old male that came to the ER today with chest pain. Patient reports that the chest pain lasted a few hours and was a 5 with constant pressure radiating into back. Patient reports that he was at work and things were going wrong at work. Patient denies chest pain at present. Patient denies palpitations, headache, dizziness, nausea, or vomiting. Patient reports history of a 1/2 inch of left kidney removed, prostate cancer, left wrist surgeries, bilateral shoulder surgeries, and a cholecystectomy. Patient reports having pneumonia last year in June of 2023 that required a chest tube. Trop: 0.056> 0.059> 0.040. EKG SR 77 [id number]. Chest X-ray: IMPRESSION: Previously seen masses are not demonstrated. No acute cardiopulmonary pathology. Chest CTA: MPRESSION: 1. No pulmonary embolism. 2. No acute cardiopulmonary pathology. 3. Nodules in the right and left upper lobes. 3 months follow-up CT scan is advised. 4. Hypodensity in the wall of the stomach. Further evaluation advised. 5. Borderline lymph nodes surrounding the head of the pancreas. Review of Systems Review of Systems: All systems reviewed & are unremarkable except as noted in HPI and below PMFSH Past Medical History Medical History Prostate cancer Status post radical prostatectomy. Clostridium difficile diarrhea (2020) Hyperlipidemia Erectile dysfunction Headaches due to old head injury Renal cell carcinoma Status post partial left nephrectomy. Benign essential hypertension Surgical History Surgical History History of incisional hernia repair (09/2021) History of arthroscopy of both shoulders History of partial nephrectomy Left partial nephrectomy for RCC. History of radical prostatectomy Prostate cancer. History of Adeola fundoplication (04/30/23) Robotic assisted laparoscopic History of surgery on wrist ORIF left wrist fracture. History of cholecystectomy History of kidney surgery Family History Family History Grandparent Cerebrovascular accident Hypertension Mother Diabetes mellitus Heart disease Lupus Social History Social History Social History: Surrogate medical decision maker: Davy Stanley, spouse. Code status: Full code. Smoking packs per day: 1 Smoking cigarettes per day: 20.0 Years smoked: 46 Smoking pack-years: 46.00 Smoking status: Former smoker Tobacco type: cigarettes Second hand tobacco smoke exposure: Yes Smoking end date: 06/27/23 Alcohol intake: current Drinks per week: 3 Alcohol use details: occasional Substance use: never Substance use type: does not use Do You Feel Safe in your Home?: Yes Lack of Transportation: No Lack of Food: Never True Current Housing: I Have Housing Concerned About Future Housing: No Difficulty Paying Gas/Electric Bills: No Difficulty Paying for Meds: No Currently Unemployed: No Education: High School Diploma/GED Difficulty w/ Childcare or Family Care: No Living arrangements: with family Spiritual care concerns: No Meds Home Medications and Allergies Home Medications ?Medication ?Instructions ?Recorded ?Confirmed ?Type psyllium husk 0.4 gram capsule 0.4 g PO DAILY 06/27/23 04/10/24 History (Daily Fiber) loratadine 10 mg tablet (Allergy 10 mg PO DAILY #30 tabs 08/29/23 04/10/24 Rx Relief (loratadine)) valsartan 320 See Rx Instructions .Route 08/29/23 04/10/24 Rx mg-hydrochlorothiazide 25 mg tablet .COMPLEX #90 tabs gabapentin 300 mg capsule See Rx Instructions .Route 09/02/23 04/10/24 Rx .COMPLEX #180 caps hydralazine 100 mg tablet See Rx Instructions .Route 11/10/23 04/10/24 Rx .COMPLEX #270 tabs meloxicam 7.5 mg tablet See Rx Instructions .Route 02/05/24 04/10/24 Rx .COMPLEX #90 tabs amlodipine 10 mg tablet See Rx Instructions .Route 03/12/24 04/10/24 Rx .COMPLEX #90 tabs montelukast 10 mg tablet See Rx Instructions .Route 03/12/24 04/10/24 Rx .COMPLEX #90 tabs nortriptyline 50 mg capsule See Rx Instructions .Route 03/12/24 04/10/24 Rx .COMPLEX #90 caps pravastatin 40 mg tablet See Rx Instructions .Route 03/12/24 04/10/24 Rx .COMPLEX #90 tabs tadalafil 5 mg tablet (Cialis) 5 mg PO DAILY #90 tabs 03/12/24 04/10/24 Rx famotidine 40 mg tablet See Rx Instructions .Route 03/18/24 04/10/24 Rx .COMPLEX #90 tabs fluticasone propionate 50 See Rx Instructions .Route 03/18/24 04/10/24 Rx mcg/actuation nasal .COMPLEX #48 grams spray,suspension Allergies Allergy/AdvReac Type Severity Reaction Status Date / Time oxycodone Allergy Severe Rash, Verified 04/09/24 22:20 ITCHING Penicillins AdvReac Severe N/V Verified 04/09/24 22:20 tetracycline AdvReac Severe VOMITING, Verified 04/09/24 22:20 DIARRHEA Vital Signs Vital Signs - 24 hr 04/09/24 22:56 04/10/24 08:55 Temperature 97.1 F L Pulse Rate 77 78 Respiratory Rate 16 18 Blood Pressure 157/70 H 161/87 H Pulse Oximetry 100 97 Exam Const: General: comfortable and no acute distress Eyes: Sclera: sclerae normal Neck: Neck: supple Resp: Effort & Inspection: normal respiratory effort Auscultation: clear to auscultation bilaterally Cardio: Rate: regular rate Rhythm: regular rhythm GI: GI Palp: Yes Soft to palpation Auscultation: normal bowel sounds Skin: General skin exam: no rashes or lesions noted Neuro: Speech: normal speech Extrem: General: no pedal edema Psych: Mental Status: mental status grossly normal Affect: normal affect H&P: Results Labs Labs: Short CBC 04/09/24 Range/Units 22:44 WBC 7.3 (4.5-10.0) K/mm3 Hgb 12.8 L (14.0-18.0) g/dL Hct 38.2 L (42.0-52.0) % Plt Count 182 (150-375) k/mm3 BMP 04/09/24 22:44 Sodium 136 L Potassium 3.9 Chloride 106 Carbon Dioxide 27 BUN 19 Creatinine 0.90 Glucose 93 Calcium 9.6 Cardiac Enzymes 04/09/24 04/10/24 04/10/24 Range/Units 22:44 01:37 05:11 Troponin I 0.049 H* 0.056 H* 0.059 H* (0.000-0.034) ng/mL Liver Function 04/09/24 Range/Units 22:44 Total Bilirubin 0.3 (0.2-1.3) mg/dL AST 25 (17-59) U/L ALT 19 (6-50) U/L Alkaline Phosphatase 41 (38-126) U/L Albumin 4.3 (3.5-5.1) g/dL Assessment and Plan Assessment and plan (1) Chest pain: Code(s): R07.9 - Chest pain, unspecified Status: Acute Assessment and Plan: * Trop: 0.056> 0.059> 0.040 * Denies at present * Cardiology consulted * Echocardiogram ordered. (2) Benign essential hypertension: Code(s): I10 - Essential (primary) hypertension Status: Acute Assessment and Plan: * Blood pressure 161/87. Continue home meds. * Hydralazine 100 mg PO q 8, Amlodipine 10 mg PO daily, Valsartan 320 mg PO daily, and HCTZ 25 mg PO daily. (3) Hyperlipidemia: Code(s): E78.5 - Hyperlipidemia, unspecified Status: Acute Assessment and Plan: * Pravastatin 40 mg PO HS. (4) Chronic GERD: Code(s): K21.9 - Gastro-esophageal reflux disease without esophagitis Status: Acute Assessment and Plan: * Famotidine 40 mg PO at bedtime. Hospitalist MIPS Advance Care Plan I have confirmed that the patient's Advanced Care Plan is present, code status is documented, or surrogate decision maker is listed in patient medical record.: Yes Medication Reconciliation I have utilized all available resources to obtain, update and review the patients current medications (includes all prescriptions, OTC, herbals, cannabis, and nutritional supplements).: Yes
[2024-04-10 11:03] LABS: Basophils Absolute Auto 0.1 K/mm3 (0.0-0.1); Basophils Percent Auto 0.9 % (0.2-1.2); Eosinophils Absolute Auto 0.1 K/mm3 (0-0.3); Eosinophils Percent Auto 1.6 % (0-4.4); Hematocrit 38.9 % (42.0-52.0); Hemoglobin 13.2 g/dL (14.0-18.0); Immature Granulocyte Absolute 0.01 K/mm3 (0.00-0.031); Immature Granulocyte Percent A 0.2 % (0-0.5); Lymphocytes Absolute Auto 0.95 K/mm3 (0.9-3.2); Lymphocytes Percent Auto 17.1 % (18.3-44.2); Mean Corpuscular HGB Conc 33.9 g/dl (32-36); Mean Corpuscular Hemoglobin 30.3 pg (26-34); Mean Corpuscular Volume 89.2 fl (80-100); Mean Platelet Volume 10.3 fl (7.4-10.4); Monocytes Absolute Auto 0.5 K/mm3 (0.1-0.6); Monocytes Percent Auto 9.7 % (2.6-8.5); Neutrophils Absolute Auto 3.9 K/mm3 (1.3-6.7); Neutrophils Percent Auto 70.5 % (45.5-73.1); Platelet Count Result 183 k/mm3 (150-375); Red Blood Count 4.36 M/mm3 (4.6-6.20); Red Cell Distribution Width 12.9 % (11.5-14.5); White Blood Count 5.6 K/mm3 (4.5-10.0)
[2024-04-10 11:18] LABS: Alanine Aminotransferase 18 U/L (6-50); Albumin Level 4.2 g/dL (3.5-5.1); Alkaline Phosphatase 38 U/L (38-126); Anion Gap -2 mmol/L (4-12); Aspartate Amino Transferase 23 U/L (17-59); Bilirubin,Total 0.5 mg/dL (0.2-1.3); Blood Urea Nitrogen 16 mg/dL (9-20); Calcium 9.6 mg/dL (8.4-10.2); Carbon Dioxide 30 mmol/L (22-30); Chloride 107 mmol/L (98-107); Estimated CRCL calculation 98 ml/min; Estimated Glomerular Filt Rate > 60; Glucose 109 mg/dL (65-110); Magnesium 1.9 mg/dL (1.6-2.3); Potassium 4.1 mmol/L (3.4-5.0); Sodium 135 mmol/L (137-145)
--- NOTE | 2024-04-10 14:10 | PC.NURSE ---
Patient arrived from ER. A&O 4. RA. Tele applied
--- NOTE | 2024-04-10 17:54 | P.CONCA_ITS ---
Assessment and Plan Assessment and plan (1) NSTEMI (non-ST elevated myocardial infarction): Code(s): I21.4 - Non-ST elevation (NSTEMI) myocardial infarction Status: Acute Plan 1. NSTEMI 2. Hypertension 3. Partial left nephrectomy -despite a flat troponin profile I would consider heparin infusion on him -would prefer a cardiac catheterization at and a stress test -he agreed for cardiac catheterization -left heart catheterization Friday History of Present Illness History of Present Illness Consult date/time: 04/10/24 17:54 Reason For Visit: Chest pain, elevated troponin Narrative: Mr Marin Stanley is a 58 year old male presented with chest pain. EKG showed ST T wave changes in the precordial leads Troponin has been flat Currently no more chest pain Doing well No prior history of CAD, mi or BETH placement Prior history of CVA No bleeding from any source Had a partial left nephrectomy due to renal cell cancer, renal function is normal Review of Systems 2 Review of Systems: A 10 system review of systems was completed on the patient and is negative except for what is stated in the HPI. Nursing and ancillary documentation was reviewed. All systems reviewed & are unremarkable except as noted in HPI and below PMFSH Past Medical History Medical History Prostate cancer Status post radical prostatectomy. Clostridium difficile diarrhea (2020) Hyperlipidemia Erectile dysfunction Headaches due to old head injury Renal cell carcinoma Status post partial left nephrectomy. Benign essential hypertension Surgical History Surgical History History of incisional hernia repair (09/2021) History of arthroscopy of both shoulders History of partial nephrectomy Left partial nephrectomy for RCC. History of radical prostatectomy Prostate cancer. History of Adeola fundoplication (04/30/23) Robotic assisted laparoscopic History of surgery on wrist ORIF left wrist fracture. History of cholecystectomy History of kidney surgery Family History Family History Grandparent Cerebrovascular accident Hypertension Mother Diabetes mellitus Heart disease Lupus Social History Social History Social History: Surrogate medical decision maker: Davy Stanley, spouse. Code status: Full code. Smoking packs per day: 1 Smoking cigarettes per day: 20.0 Years smoked: 46 Smoking pack-years: 46.00 Smoking status: Former smoker Tobacco type: cigarettes Second hand tobacco smoke exposure: Yes Smoking end date: 06/27/23 Alcohol intake: current Drinks per week: 3 Alcohol use details: occasional Substance use: never Substance use type: does not use Do You Feel Safe in your Home?: Yes Lack of Transportation: No Lack of Food: Never True Current Housing: I Have Housing Concerned About Future Housing: No Difficulty Paying Gas/Electric Bills: No Difficulty Paying for Meds: No Currently Unemployed: No Education: High School Diploma/GED Difficulty w/ Childcare or Family Care: No Living arrangements: with family Spiritual care concerns: No Meds Home Medications and Allergies Home Medications ?Medication ?Instructions ?Recorded ?Confirmed ?Type psyllium husk 0.4 gram capsule 0.4 g PO DAILY 06/27/23 04/10/24 History (Daily Fiber) loratadine 10 mg tablet (Allergy 10 mg PO DAILY #30 tabs 08/29/23 04/10/24 Rx Relief (loratadine)) valsartan 320 See Rx Instructions .Route 08/29/23 04/10/24 Rx mg-hydrochlorothiazide 25 mg tablet .COMPLEX #90 tabs gabapentin 300 mg capsule See Rx Instructions .Route 09/02/23 04/10/24 Rx .COMPLEX #180 caps hydralazine 100 mg tablet See Rx Instructions .Route 11/10/23 04/10/24 Rx .COMPLEX #270 tabs meloxicam 7.5 mg tablet See Rx Instructions .Route 02/05/24 04/10/24 Rx .COMPLEX #90 tabs amlodipine 10 mg tablet See Rx Instructions .Route 03/12/24 04/10/24 Rx .COMPLEX #90 tabs montelukast 10 mg tablet See Rx Instructions .Route 03/12/24 04/10/24 Rx .COMPLEX #90 tabs nortriptyline 50 mg capsule See Rx Instructions .Route 03/12/24 04/10/24 Rx .COMPLEX #90 caps pravastatin 40 mg tablet See Rx Instructions .Route 03/12/24 04/10/24 Rx .COMPLEX #90 tabs tadalafil 5 mg tablet (Cialis) 5 mg PO DAILY #90 tabs 03/12/24 04/10/24 Rx famotidine 40 mg tablet See Rx Instructions .Route 03/18/24 04/10/24 Rx .COMPLEX #90 tabs fluticasone propionate 50 See Rx Instructions .Route 03/18/24 04/10/24 Rx mcg/actuation nasal .COMPLEX #48 grams spray,suspension Allergies Allergy/AdvReac Type Severity Reaction Status Date / Time oxycodone Allergy Severe Rash, Verified 04/09/24 22:20 ITCHING Penicillins AdvReac Severe N/V Verified 04/09/24 22:20 tetracycline AdvReac Severe VOMITING, Verified 04/09/24 22:20 DIARRHEA Vital Signs Vital Signs - 24 hr 04/09/24 22:56 04/10/24 08:55 04/10/24 16:00 Temperature 36.2 C L 36.7 C Pulse Rate 77 78 71 Respiratory Rate 16 18 20 Blood Pressure 157/70 H 161/87 H 168/75 H Pulse Oximetry 100 97 97 Exam 2 Narrative: GENERAL: Well-appearing, well-nourished, and in no acute distress. HEAD: Normocephalic, atraumatic. EYES: PERRLA and EOMI. ENT: Nares clear, no rhinorrhea or epistaxis. Mucous membranes moist. NECK: Supple. CHEST: Clear to auscultation. No respiratory distress. HEART: Regular rate and rhythm. No murmur heard. Normal peripheral pulses. ABDOMEN: Soft, nontender, nondistended, normal active bowel sounds. EXTREMITIES: Normal range of motion. No edema. SKIN: Warm, dry, no rash. NEURO: No focal deficits. Alert and oriented x3. PSYCH: Normal mood and affect. Const: General: comfortable and no acute distress Eyes: Sclera: sclerae normal Neck: Neck: supple Resp: Effort & Inspection: normal respiratory effort Auscultation: clear to auscultation bilaterally Cardio: Rate: regular rate Rhythm: regular rhythm GI: Auscultation: normal bowel sounds Skin: General skin exam: no rashes or lesions noted Neuro: Speech: normal speech Extrem: General: no pedal edema Psych: Mental Status: mental status grossly normal Affect: normal affect Results Labs and Meds 04/11/24 04:39 04/11/24 04:39 Lab results: Cardiac Enzymes 04/09/24 04/10/24 04/10/24 Range/Units 22:44 01:37 05:11 AST 25 (17-59) U/L Troponin I 0.049 H* 0.056 H* 0.059 H* (0.000-0.034) ng/mL 04/10/24 Range/Units 10:58 AST 23 (17-59) U/L Troponin I 0.040 H* D (0.000-0.034) ng/mL Coagulation 04/09/24 Range/Units 22:44 PT 12.5 (11.1-14.7) Seconds APTT 28.5 (22.3-36.8) Seconds CBC 04/09/24 04/10/24 Range/Units 22:44 10:58 WBC 7.3 5.6 (4.5-10.0) K/mm3 RBC 4.25 L 4.36 L (4.6-6.20) M/mm3 Hgb 12.8 L 13.2 L (14.0-18.0) g/dL Hct 38.2 L 38.9 L (42.0-52.0) % Plt Count 182 183 (150-375) k/mm3 Lymph # (Auto) 1.55 0.95 (0.9-3.2) K/mm3 [place] # (Auto) 0.6 0.5 (0.1-0.6) K/mm3 Eos # (Auto) 0.1 0.1 (0-0.3) K/mm3 Baso # (Auto) 0.1 0.1 (0.0-0.1) K/mm3 Comprehensive Metabolic Panel 04/09/24 04/10/24 Range/Units 22:44 10:58 Sodium 136 L 135 L (137-145) mmol/L Potassium 3.9 4.1 (3.4-5.0) mmol/L Chloride 106 107 (98-107) mmol/L Carbon Dioxide 27 30 (22-30) mmol/L BUN 19 16 (9-20) mg/dL Creatinine 0.90 0.90 (0.7-1.3) mg/dL Glucose 93 109 (65-110) mg/dL Calcium 9.6 9.6 (8.4-10.2) mg/dL AST 25 23 (17-59) U/L ALT 19 18 (6-50) U/L Alkaline Phosphatase 41 38 (38-126) U/L Total Protein 8.0 8.0 (6.3-8.2) g/dL Albumin 4.3 4.2 (3.5-5.1) g/dL Patient Weight 04/10/24 23:59 Weight 118.18 kg
[2024-04-10] MEDS: hydrALAZINE HCL 50 MG TABLET 100 MG PO ×2 (18:31→21:47)
[2024-04-10] MEDS: NORTRIPTYLINE HCL 25 MG CAPSULE 50 MG BY MOUTH (21:45)
[2024-04-10] MEDS: GABAPENTIN 300 MG CAPSULE 600 MG BY MOUTH (21:45)
[2024-04-10] MEDS: FAMOTIDINE 20 MG TABLET 40 MG BY MOUTH (21:46)
[2024-04-10] MEDS: carvediloL 12.5 MG TABLET PO (21:48)
[2024-04-10] MEDS: NICOTINE (*PBKC) 4 MG GUM PO (22:37)
[2024-04-11] VITALS (18 sets, daily range): BP systolic 114–147; BP diastolic 46–74; PULSE 64–100; RESP 16–20; TEMP 36.6–37; O2SAT 95–100
[2024-04-11 05:19] LABS: Basophils Absolute Auto 0.1 K/mm3 (0.0-0.1); Basophils Percent Auto 0.9 % (0.2-1.2); Eosinophils Absolute Auto 0.2 K/mm3 (0-0.3); Eosinophils Percent Auto 2.8 % (0-4.4); Hematocrit 38.1 % (42.0-52.0); Hemoglobin 12.6 g/dL (14.0-18.0); Immature Granulocyte Absolute 0.02 K/mm3 (0.00-0.031); Immature Granulocyte Percent A 0.4 % (0-0.5); Lymphocytes Absolute Auto 1.43 K/mm3 (0.9-3.2); Lymphocytes Percent Auto 26.8 % (18.3-44.2); Mean Corpuscular HGB Conc 33.1 g/dl (32-36); Mean Corpuscular Hemoglobin 29.9 pg (26-34); Mean Corpuscular Volume 90.5 fl (80-100); Mean Platelet Volume 10.5 fl (7.4-10.4); Monocytes Absolute Auto 0.6 K/mm3 (0.1-0.6); Monocytes Percent Auto 10.3 % (2.6-8.5); Neutrophils Absolute Auto 3.1 K/mm3 (1.3-6.7); Neutrophils Percent Auto 58.8 % (45.5-73.1); Platelet Count Result 177 k/mm3 (150-375); Red Blood Count 4.21 M/mm3 (4.6-6.20); Red Cell Distribution Width 12.9 % (11.5-14.5); White Blood Count 5.3 K/mm3 (4.5-10.0)
[2024-04-11 05:32] LABS: Alanine Aminotransferase 16 U/L (6-50); Albumin Level 3.9 g/dL (3.5-5.1); Alkaline Phosphatase 39 U/L (38-126); Anion Gap 2 mmol/L (4-12); Aspartate Amino Transferase 20 U/L (17-59); Bilirubin,Total 0.4 mg/dL (0.2-1.3); Blood Urea Nitrogen 18 mg/dL (9-20); Carbon Dioxide 28 mmol/L (22-30); Chloride 108 mmol/L (98-107); Estimated CRCL calculation 106 ml/min; Estimated Glomerular Filt Rate > 60; Glucose 98 mg/dL (65-110); Magnesium 2.1 mg/dL (1.6-2.3); Potassium 3.8 mmol/L (3.4-5.0); Sodium 138 mmol/L (137-145)
[2024-04-11] MEDS: hydrALAZINE HCL 50 MG TABLET 100 MG PO ×3 (06:12→22:12)
[2024-04-11] MEDS: PRAVASTATIN SODIUM 20 MG TABLET 40 MG BY MOUTH (08:36)
[2024-04-11] MEDS: VALSARTAN 160 MG TABLET 320 MG PO (08:36)
[2024-04-11] MEDS: hydroCHLOROthiazide 25 MG TABLET PO (08:36)
[2024-04-11] MEDS: carvediloL 12.5 MG TABLET PO ×2 (08:37→20:25)
[2024-04-11] MEDS: LORATADINE 10 MG TABLET PO (08:38)
[2024-04-11] MEDS: ASPIRIN 81 MG CHEWABLE TABLET PO (08:38)
[2024-04-11] MEDS: MONTELUKAST SODIUM 10 MG TABLET BY MOUTH (08:38)
[2024-04-11] MEDS: amLODIPine BESYLATE 10 MG TABLET BY MOUTH (08:38)
--- NOTE | 2024-04-11 11:46 | P.PNIM_ITS ---
Progress Note: A&P Assessment and Plan (1) Chest pain: Code(s): R07.9 - Chest pain, unspecified Status: Acute Assessment and Plan: * Trop: 0.056> 0.059> 0.040 * Denies at present * Cardiology consulted, appreciate recommendations. * Echocardiogram ordered. (2) Benign essential hypertension: Code(s): I10 - Essential (primary) hypertension Status: Acute Assessment and Plan: * Blood pressure 147/74. Continue home meds. * Hydralazine 100 mg PO q 8, Amlodipine 10 mg PO daily, Valsartan 320 mg PO daily, and HCTZ 25 mg PO daily. * Cardiology added Carvedilol 12.5 mg PO q12. (3) Hyperlipidemia: Code(s): E78.5 - Hyperlipidemia, unspecified Status: Acute Assessment and Plan: * Atorvastatin 40 mg PO daily. (4) Chronic GERD: Code(s): K21.9 - Gastro-esophageal reflux disease without esophagitis Status: Acute Assessment and Plan: * Famotidine 40 mg PO at bedtime. Subjective Date/time seen: 04/11/24 11:46 Interval history: Patient sitting up on the side of the bed. Patient denies chest pain, palpitations, headache, dizziness, nausea, or vomiting. Patient report that he has decided that he would like to do the cardiac cath instead of a stress test and he would like them to go through his wrist. Discussed Chest CTA results with patient and . Patient reports that he is followed by a cartography technician at [facility] and is aware of the nodule, reports that has been getting smaller. CT showed hypodensity in the wall of the stomach (further evaluation advised) and borderline lymph nodes surrounding the head of the pancreas. GI consult placed. Review of Systems Review of Systems: All systems reviewed & are unremarkable except as noted in HPI and below Exam Const: General: comfortable and no acute distress Eyes: Sclera: sclerae normal Resp: Effort & Inspection: normal respiratory effort Auscultation: clear to auscultation bilaterally Cardio: Rate: regular rate Rhythm: regular rhythm Other: Telemetry SR 69 GI: GI Palp: Yes Soft to palpation Auscultation: normal bowel sounds Skin: General skin exam: no rashes or lesions noted Neuro: Speech: normal speech Extrem: General: no pedal edema Psych: Mental Status: mental status grossly normal Affect: normal affect Objective Data Vital Signs Vital Signs: Vital Signs - 24 hr 04/10/24 16:00 04/10/24 16:00 04/10/24 16:00 Temperature 98.0 F Pulse Rate 71 74 Respiratory Rate 20 Blood Pressure 168/75 H Pulse Oximetry 97 Oxygen Delivery Room Air 04/10/24 18:00 04/10/24 20:00 04/10/24 20:00 Temperature 98.0 F Pulse Rate 72 101 H 73 Respiratory Rate 18 Blood Pressure 159/74 H Pulse Oximetry 100 Oxygen Delivery 04/10/24 21:30 04/10/24 21:48 04/10/24 22:00 Temperature Pulse Rate 101 H 79 83 Respiratory Rate 18 Blood Pressure Pulse Oximetry 100 Oxygen Delivery Room Air 04/11/24 00:00 04/11/24 00:00 04/11/24 00:30 Temperature 97.8 F Pulse Rate 100 74 100 Respiratory Rate 18 18 Blood Pressure 147/64 H Pulse Oximetry 100 100 Oxygen Delivery Room Air 04/11/24 01:51 04/11/24 04:00 04/11/24 04:00 Temperature 98.0 F Pulse Rate 68 74 69 Respiratory Rate 18 Blood Pressure 125/73 Pulse Oximetry 100 Oxygen Delivery 04/11/24 04:30 04/11/24 05:47 04/11/24 08:00 Temperature 98.2 F Pulse Rate 74 64 64 Respiratory Rate 18 16 Blood Pressure 114/46 L Pulse Oximetry 100 98 Oxygen Delivery Room Air 04/11/24 08:00 04/11/24 08:37 Temperature Pulse Rate 82 Respiratory Rate Blood Pressure Pulse Oximetry Oxygen Delivery Room Air Intake/Output Intake/Output: Intake & Output 04/08/24 04/09/24 04/10/24 04/11/24 23:59 23:59 23:59 23:59 Intake Total 240 540 Output Total 280 200 Balance -40 340 Meds/Results Medications: Active Medications Generic Name Dose Route Start Last Admin Trade Name Freq PRN Reason Stop Dose Admin Acetaminophen 650 mg 04/10/24 22:26 Acetaminophen 325 Mg Tablet PO Q6H PRN Mild Pain (1-3) or Fever Amlodipine Besylate 10 mg 04/11/24 09:00 04/11/24 08:38 Amlodipine Besylate 10 Mg Tablet BY MOUTH 10 mg DAILY NEGRITA Administration Aspirin 81 mg 04/10/24 08:00 04/11/24 08:38 Aspirin 81 Mg Chewable Tablet PO 81 mg DAILY@0800 NEGRITA Administration Atorvastatin Calcium 40 mg 04/12/24 09:00 Atorvastatin 40 Mg Tablet PO DAILY [facility] Carvedilol 12.5 mg 04/10/24 21:00 04/11/24 08:37 Carvedilol 12.5 Mg Tablet PO 12.5 mg Q12HR NEGRITA Administration Famotidine 40 mg 04/10/24 21:00 04/10/24 21:46 Famotidine 20 Mg Tablet BY MOUTH 40 mg HS [facility] Administration Gabapentin 600 mg 04/10/24 21:00 04/10/24 21:45 Gabapentin 300 Mg Capsule BY MOUTH 600 mg HS [facility] Administration Hydralazine HCl 100 mg 04/10/24 14:00 04/11/24 06:12 Hydralazine Hcl 50 Mg Tablet PO 100 mg Q8HR NEGRITA Administration Hydrochlorothiazide 25 mg 04/11/24 09:00 04/11/24 08:36 Hydrochlorothiazide 25 Mg Tablet PO 25 mg QAM [facility] Administration Loratadine 10 mg 04/11/24 09:00 04/11/24 08:38 Loratadine 10 Mg Tablet PO 10 mg DAILY [facility] Administration Montelukast Sodium 10 mg 04/11/24 09:00 04/11/24 08:38 Montelukast Sodium 10 Mg Tablet BY MOUTH 10 mg DAILY [facility] Administration Nicotine Polacrilex 4 mg 04/10/24 22:30 04/10/24 22:37 Nicotine (*Pbkc) 4 Mg Gum PO 4 mg PRN PRN Administration Nicotine Cravings Nortriptyline HCl 50 mg 04/10/24 21:00 04/10/24 21:45 Nortriptyline Hcl 25 Mg Capsule BY MOUTH 50 mg HS [facility] Administration Perflutren Lipid Microsphere 0 ml 04/10/24 17:16 Perflutren Lipid Microspheres 1.5 Ml Vial Diluted To 10 Ml Total Volume IV PUSH 04/13/24 17:17 ONCE PRN adequate visualization Protocol Psyllium Hydrophilic Mucilloid 1 packet 04/11/24 09:00 04/11/24 08:40 Psyllium Powder Packet BY MOUTH Not Given DAILY [facility] Valsartan 320 mg 04/11/24 09:00 04/11/24 08:36 Valsartan 160 Mg Tablet PO 320 mg QAM NEGRITA Administration Radiology Results: ITS Impressions Chest X-Ray 04/09/24 23:18 IMPRESSION: Previously seen masses are not demonstrated. No acute cardiopulmonary pathology. Chest CTA 04/10/24 14:27 IMPRESSION: 1. No pulmonary embolism. 2. No acute cardiopulmonary pathology. 3. Nodules in the right and left upper lobes. 3 months follow-up CT scan is advised. 4. Hypodensity in the wall of the stomach. Further evaluation advised. 5. Borderline lymph nodes surrounding the head of the pancreas. Labs Labs: Laboratory Results - last 24 hr 04/11/24 04:39 WBC 5.3 RBC 4.21 L Hgb 12.6 L Hct 38.1 L MCV 90.5 MCH 29.9 MCHC 33.1 RDW 12.9 Plt Count 177 MPV 10.5 H Immature Gran % (Auto) 0.4 Neut % (Auto) 58.8 Lymph % (Auto) 26.8 [place] % (Auto) 10.3 H Eos % (Auto) 2.8 Baso % (Auto) 0.9 Lymph # (Auto) 1.43 [place] # (Auto) 0.6 Eos # (Auto) 0.2 Baso # (Auto) 0.1 Abs Immat Gran (auto) 0.02 Absolute Neuts (auto) 3.1 Absolute Nucleated RBC 0.000 Nucleated RBC % 0.0 Sodium 138 Potassium 3.8 Chloride 108 H Carbon Dioxide 28 Anion Gap 2 L BUN 18 Creatinine 0.80 Estim Creat Clear Calc 106 Estimated GFR > 60 Glucose 98 Calcium 9.0 Magnesium 2.1 Total Bilirubin 0.4 AST 20 ALT 16 Alkaline Phosphatase 39 Total Protein 7.0 Albumin 3.9 Quality VTE Prophylaxis VTE prophylaxis: mechanical ordered
--- NOTE | 2024-04-11 15:03 | P.CONGI_ITS ---
Assessment and Plan Assessment and plan (1) Elevated troponin: Code(s): R79.89 - Other specified abnormal findings of blood chemistry Status: Acute (2) Chest pain: Code(s): R07.9 - Chest pain, unspecified Status: Acute (3) Abnormal CT of the chest: Code(s): R93.89 - Abnormal findings on diagnostic imaging of other specified body structures Status: Acute Plan Overall from the GI perspective patient has been stable without any active GI symptoms. Currently being managed for chest pain angina/non STEMI. Patient is supposed to get a cardiac catheterization tomorrow. I did discuss with the patient and patient's is at next to the patient I did advise that obviously that will need further evaluation and this is an incidental finding on the CT scan it might be something in the wall of the stomach wall it can before the stomach. Patient did have upper endoscopies in the past without any abnormalities of the stomach and has history of a fundoplication and also history of Hamilton's. I also discussed with them about the lymph nodes noted on the pancreas patient will need a CT scan of the abdomen with contrast but I did discuss with him that as he got a contrast study yesterday and is going to get a cardiac catheterization tomorrow with contrast I will hold off the CT abdomen Once is cardiac catheterization is done next day if the kidney functions are stable then he can undergo CT abdomen with contrast and at some point he can consider an upper endoscopy for evaluation of the stomach. At this time with patient's cardiac status, cardiac testing would be the priority as he is not having any GI symptoms Family voiced understanding patient will be seen by the regular GI team tomorrow morning deciding about the CT scan and the upper endoscopy depending upon the cardiac cardiac catheterization GI Consult Note Consult date/time: 04/11/24 15:03 Reason for consult: Abnormal CT scan of the chest with hypodensity in the wall of the stomach HPI: Marin Stanley is a 58 year old male got admitted to the hospital with elevated troponins and chest pain and also was short of breath for which he underwent a CT scan of the chest to rule out pulmonary embolism on the CT scan of the chest there was a hypodensity noted in the wall of the stomach there was a concern that it might be a lipoma also some lymph nodes were noted around the pancreas. Patient did have multiple upper endoscopies in the past also has history of Adeola fundoplication the last upper endoscopy was done by Dr. Pizano in January 27 for Hamilton's esophagus. Patient currently denies any nausea vomiting abdominal pain diarrhea constipation. The patient is post get a cardiac catheterization tomorrow for his non STEMI/angina also according to him he had colonoscopies by his GI doctor in past. Review of Systems 2 Constitutional: Constitutional: Denies chills, Denies fatigue, Denies fever(s), Denies headache(s), Denies malaise, Denies weight gain and Denies weight loss Eyes: Eyes: Denies change in vision ENT: Denies dizziness, Denies headache(s) and Reports other (No change in hearing) Cardiovascular: Cardiovascular: Denies chest pain, Denies dyspnea and Reports other (denies palpitations, denies orthopnea) Respiratory: Respiratory: Denies cough, Denies dyspnea and Reports other (denies sputum production, denies hemoptysis) Gastrointestinal: Gastrointestinal: Reports as per HPI Genitourinary: Genitourinary: Denies hematuria, Denies dysuria and Denies urinary incontinence Musculoskeletal: Musculoskeletal: Reports other (denies extremity edema, denies myalgia) Integumentary/Breasts: Skin/Breast: Denies new lesions and Denies rash Neurologic: Denies dizziness, Denies headache(s) and Denies seizure-like activity Endocrine: Endocrine: Denies fatigue Hematologic/Lymphatic: Hematologic/Lymphatic: Denies easy bleeding and Denies easy bruising PMFSH Past Medical History Medical History Prostate cancer Status post radical prostatectomy. Clostridium difficile diarrhea (2020) Hyperlipidemia Erectile dysfunction Headaches due to old head injury Renal cell carcinoma Status post partial left nephrectomy. Benign essential hypertension Surgical History Surgical History History of incisional hernia repair (09/2021) History of arthroscopy of both shoulders History of partial nephrectomy Left partial nephrectomy for RCC. History of radical prostatectomy Prostate cancer. History of Adeola fundoplication (04/30/23) Robotic assisted laparoscopic History of surgery on wrist ORIF left wrist fracture. History of cholecystectomy History of kidney surgery Family History Family History Grandparent Cerebrovascular accident Hypertension Mother Diabetes mellitus Heart disease Lupus Social History Social History Social History: Surrogate medical decision maker: Davy Stanley, spouse. Code status: Full code. Smoking packs per day: 1 Smoking cigarettes per day: 20.0 Years smoked: 46 Smoking pack-years: 46.00 Smoking status: Former smoker Tobacco type: cigarettes Second hand tobacco smoke exposure: Yes Smoking end date: 06/27/23 Alcohol intake: current Drinks per week: 3 Alcohol use details: occasional Substance use: never Substance use type: does not use Do You Feel Safe in your Home?: Yes Lack of Transportation: No Lack of Food: Never True Current Housing: I Have Housing Concerned About Future Housing: No Difficulty Paying Gas/Electric Bills: No Difficulty Paying for Meds: No Currently Unemployed: No Education: High School Diploma/GED Difficulty w/ Childcare or Family Care: No Living arrangements: with family Spiritual care concerns: No Meds Home Medications and Allergies Home Medications ?Medication ?Instructions ?Recorded ?Confirmed ?Type psyllium husk 0.4 gram capsule 0.4 g PO DAILY 06/27/23 04/10/24 History (Daily Fiber) loratadine 10 mg tablet (Allergy 10 mg PO DAILY #30 tabs 08/29/23 04/10/24 Rx Relief (loratadine)) valsartan 320 See Rx Instructions .Route 08/29/23 04/10/24 Rx mg-hydrochlorothiazide 25 mg tablet .COMPLEX #90 tabs gabapentin 300 mg capsule See Rx Instructions .Route 09/02/23 04/10/24 Rx .COMPLEX #180 caps hydralazine 100 mg tablet See Rx Instructions .Route 11/10/23 04/10/24 Rx .COMPLEX #270 tabs meloxicam 7.5 mg tablet See Rx Instructions .Route 02/05/24 04/10/24 Rx .COMPLEX #90 tabs amlodipine 10 mg tablet See Rx Instructions .Route 03/12/24 04/10/24 Rx .COMPLEX #90 tabs montelukast 10 mg tablet See Rx Instructions .Route 03/12/24 04/10/24 Rx .COMPLEX #90 tabs nortriptyline 50 mg capsule See Rx Instructions .Route 03/12/24 04/10/24 Rx .COMPLEX #90 caps pravastatin 40 mg tablet See Rx Instructions .Route 03/12/24 04/10/24 Rx .COMPLEX #90 tabs tadalafil 5 mg tablet (Cialis) 5 mg PO DAILY #90 tabs 03/12/24 04/10/24 Rx famotidine 40 mg tablet See Rx Instructions .Route 03/18/24 04/10/24 Rx .COMPLEX #90 tabs fluticasone propionate 50 See Rx Instructions .Route 03/18/24 04/10/24 Rx mcg/actuation nasal .COMPLEX #48 grams spray,suspension Allergies Allergy/AdvReac Type Severity Reaction Status Date / Time oxycodone Allergy Severe Rash, Verified 04/09/24 22:20 ITCHING Penicillins AdvReac Severe N/V Verified 04/09/24 22:20 tetracycline AdvReac Severe VOMITING, Verified 04/09/24 22:20 DIARRHEA Vital Signs Vital Signs - 24 hr 04/10/24 16:00 04/10/24 16:00 04/10/24 16:00 Temperature 98.0 F Pulse Rate 71 74 Respiratory Rate 20 Blood Pressure 168/75 H Pulse Oximetry 97 Oxygen Delivery Room Air 04/10/24 18:00 04/10/24 20:00 04/10/24 20:00 Temperature 98.0 F Pulse Rate 72 101 H 73 Respiratory Rate 18 Blood Pressure 159/74 H Pulse Oximetry 100 Oxygen Delivery 04/10/24 21:30 04/10/24 21:48 04/10/24 22:00 Temperature Pulse Rate 101 H 79 83 Respiratory Rate 18 Blood Pressure Pulse Oximetry 100 Oxygen Delivery Room Air 04/11/24 00:00 04/11/24 00:00 04/11/24 00:30 Temperature 97.8 F Pulse Rate 100 74 100 Respiratory Rate 18 18 Blood Pressure 147/64 H Pulse Oximetry 100 100 Oxygen Delivery Room Air 04/11/24 01:51 04/11/24 04:00 04/11/24 04:00 Temperature 98.0 F Pulse Rate 68 74 69 Respiratory Rate 18 Blood Pressure 125/73 Pulse Oximetry 100 Oxygen Delivery 04/11/24 04:30 04/11/24 05:47 04/11/24 08:00 Temperature 98.2 F Pulse Rate 74 64 64 Respiratory Rate 18 16 Blood Pressure 114/46 L Pulse Oximetry 100 98 Oxygen Delivery Room Air 04/11/24 08:00 04/11/24 08:00 04/11/24 08:37 Temperature Pulse Rate 64 82 Respiratory Rate Blood Pressure Pulse Oximetry Oxygen Delivery Room Air 04/11/24 10:00 04/11/24 12:00 04/11/24 12:00 Temperature 98.2 F Pulse Rate 78 66 Respiratory Rate 20 Blood Pressure 147/74 H Pulse Oximetry 99 Oxygen Delivery Room Air 04/11/24 12:00 Temperature Pulse Rate 71 Respiratory Rate Blood Pressure Pulse Oximetry Oxygen Delivery Exam 2 Const: General: cooperative; No acute distress Orientation/consciousness: p atient oriented x3 HENMT: Head: normal to inspection Neck: Neck: supple Resp: Auscultation: clear to auscultation bilaterally Cardio: Rate: regular rate Rhythm: regular rhythm GI: Inspection: non-distended GI Palp: Yes Soft to palpation, No Tenderness to palpation present (GI) and No Palpable mass present Auscultation: normal bowel sounds Rectal Exam: deferred Skin: General skin exam: no rashes or lesions noted Neuro: General: patient oriented x3 Extrem: General: no edema Results Labs 04/11/24 04:39 04/11/24 04:39 Labs: Short CBC 04/11/24 Range/Units 04:39 WBC 5.3 (4.5-10.0) K/mm3 Hgb 12.6 L (14.0-18.0) g/dL Hct 38.1 L (42.0-52.0) % Plt Count 177 (150-375) k/mm3 BMP 04/11/24 04:39 Sodium 138 Potassium 3.8 Chloride 108 H Carbon Dioxide 28 BUN 18 Creatinine 0.80 Glucose 98 Calcium 9.0 Liver Function 04/11/24 Range/Units 04:39 Total Bilirubin 0.4 (0.2-1.3) mg/dL AST 20 (17-59) U/L ALT 16 (6-50) U/L Alkaline Phosphatase 39 (38-126) U/L Albumin 3.9 (3.5-5.1) g/dL
[2024-04-11] MEDS: FAMOTIDINE 20 MG TABLET 40 MG BY MOUTH (20:25)
[2024-04-11] MEDS: GABAPENTIN 300 MG CAPSULE 600 MG BY MOUTH (20:26)
[2024-04-11] MEDS: NORTRIPTYLINE HCL 25 MG CAPSULE 50 MG BY MOUTH (20:26)
[2024-04-11] MEDS: LORazepam (*CRX) 0.5 MG TABLET PO (22:12)
[2024-04-12] VITALS (28 sets, daily range): BP systolic 113–152; BP diastolic 60–83; PULSE 55–76; RESP 13–20; TEMP 36.2–37.1; O2SAT 95–100
--- NOTE | 2024-04-12 | ECHO_ITS ---
Patient Info Name: Marin Stanley Age: 58 years : 1965 Gender: Male Ht: 69 in Wt: 241 lbs BSA: 2.35 m2 HR: 64 bpm BP: 140 / 73 mmHg Heart Rhythm: Sinus Rhythm Technical Quality: Fair Exam Date: 04/12/2024 6:07 PM Exam Location: Echo Lab Patient Status: Inpatient Admit Date: 04/10/2024 Staff Ordering Physician: Taylor De Anda APRN Certified Orthoptist: Ketty Werner RDCS Attending Provider: Thania Hfofman DO Referring Physician: Adilson MARLOW; Exam Type: CA echo doppler color flow Study Info Indications R07.9 - Chest pain, unspecified - elevated trop Complete two-dimensional, color flow and Doppler transthoracic echocardiogram is performed with contrast to opacify the left ventricle and to improve the deliniation of the left ventricle endocardial borders. Contrast/Agitated Saline Contrast/Ag. Saline: Definity Amount: 2.00 ml Administered By: Ketty Werner RDCS Existing IV Access: Yes IV Access Condition: patent with no signs of infiltration Summary 1. Left ventricular chamber dimension is normal. 2. There is mildly increased left ventricular wall thickness. 3. Left ventricular systolic function is normal, estimated at 55-60%. 4. There is hypokinesis of the anterolateral wall, mid anterior wall. 5. The left ventricular diastolic function is grade I diastolic dysfunction. 6. Right ventricular systolic function is normal. 7. There is mild tricuspid valve regurgitation. Left Ventricle There is hypokinesis of the anterolateral wall, mid anterior wall. Left ventricular chamber dimension is normal. Left ventricular systolic function is normal, estimated at 55-60%. There is mildly increased left ventricular wall thickness. The left ventricular diastolic function is grade I diastolic dysfunction. Right Ventricle Right ventricular chamber dimension is normal. Right ventricular systolic function is normal. Left Atria Left atrial chamber dimension is normal. Right Atria Right atrial chamber dimension is normal. Atrial Septum Intact interatrial septum visualized by color flow imaging. Aortic Valve The aortic valve is not well visualized. There is no aortic valve stenosis. There is no aortic valve regurgitation. Pulmonic Valve The pulmonic valve is not well visualized. There is no pulmonic regurgitation. Mitral Valve There is trace mitral valve regurgitation. Tricuspid Valve There is mild tricuspid valve regurgitation. Pericardium/Pleural The pericardium appears epicardial fat pad. There is no pericardial effusion. Inferior Vena Cava Normal inferior vena cava with <50% collapse upon inspiration consistent with elevated right atrial pressure, 8 mmHg. Aorta The aortic root size at the sinus of Valsalva is normal. Left Ventricular Outflow Tract Name Value Normal LVOT 2D LVOT Diameter 2.0 cm LVOT Doppler LVOT Peak Velocity 96 cm/s LVOT Peak Gradient 4 mmHg LVOT Mean Gradient 2 mmHg LVOT VTI 18 cm LVOT VTI/AV VTI Ratio 0.5 LVOT Stroke Volume 55 ml LVOT CO 3.3 l/min LVOT CI 1.4 l/min/m2 Pulmonic Valve Name Value Normal RVOT Doppler RVOT Peak Gradient 2 mmHg PV Doppler PV Peak Velocity 99 cm/s PV Peak Gradient 4 mmHg Mitral Valve Name Value Normal MV Doppler MV Decel Emmet 431 cm/s2 MV PHT 74 ms MV Area (PHT) 3.0 cm2 4.0-5.0 MV Diastolic Function MV E Peak Velocity 110 cm/s MV A Peak Velocity 109 cm/s MV E/A 1.0 MV Decel Time 255 ms MV Annular TDI MV Septal e' Velocity 9.2 cm/s >=8.0 MV E/e' (Septal) 12.0 <=8.0 MV Lateral e' Velocity 8.1 cm/s >=10.0 MV E/e' (Lateral) 13.5 <=8.0 MV e' Average 8.64 MV E/e' (Average) 12.7 Tricuspid Valve Name Value Normal TV Regurgitation Doppler TR Peak Velocity 238 cm/s TR Peak Gradient 23 mmHg Estimated PAP/RSVP RA Pressure 8 mmHg <=5 PA Systolic Pressure 31 mmHg <36 RV Systolic Pressure 31 mmHg <36 TV Annular TDI TV Lateral Iliana s' Velocity 13.3 cm/s 9.5-18.7 Aorta Name Value Normal Ascending Aorta Ao Root Diameter (MM) 3.6 cm Ao Root Diam Index (MM) 1.5 cm/m2 Aortic Valve Name Value Normal AV Doppler AV Peak Velocity 183 cm/s AV Peak Gradient 13 mmHg AV Mean Gradient 7 mmHg AV VTI 35 cm AV Area (Cont Eq VTI) 1.6 cm2 >=3.0 AV Area (Cont Eq Cay[place]) 1.6 cm2 AV V1/V2 Ratio 0.53 AV Regurgitation 2D LVOT Area 3.1 cm2 Ventricles Name Value Normal LV Dimensions 2D/MM IVS Diastolic Thickness (2D) 1.2 cm 0.6-1.0 LVID Diastole (2D) 5.4 cm 4.2-5.8 LVIW Diastolic Thickness (2D) 1.2 cm 0.6-1.0 LVID Systole (2D) 3.8 cm 2.5-4.0 LVOT Diameter 2.0 cm LV Mass (2D Cubed) 263.71 g 88.00-224.00 LV Mass Index (2D Cubed) 112 g/m2 49-115 Relative Wall Thickness (2D) 0.44 LV Fractional Shortening/Ejection Fraction 2D/MM LV Fractional Shortening (2D) 29 % 25-43 LV EF (2D Teicholz) 56 % 52-72 LV Diastolic Volume (4C MOD) 97 ml LV EF (4C MOD) 42 % LV Diastolic Volume (2C MOD) 63 ml LV EF (2C MOD) 48 % LV Diastolic Volume (BP MOD) 78 ml 62-150 LV Diastolic Volume Index (BP MOD) 33 ml/m2 34-74 LV Systolic Volume (BP MOD) 47 ml 21-61 LV Systolic Volume Index (BP MOD) 20 ml/m2 11-31 LV EF (BP MOD) 40 % 52-72 LV Diastolic Length (4C) 8.5 cm LV Systolic Length (4C) 8.2 cm LV Stroke Volume (4C MOD) 41 ml Atria Name Value Normal LA Dimensions LA Dimension (MM) 4.5 cm 3.0-4.1 LA Volume (4C A-L) 58 ml LA Volume (BP A-L) 59 ml RA Dimensions RA Area (4C) 19.3 cm2 <=18.0 Report Signatures
[2024-04-12 05:05] LABS: Basophils Absolute Auto 0.1 K/mm3 (0.0-0.1); Basophils Percent Auto 1.4 % (0.2-1.2); Eosinophils Absolute Auto 0.1 K/mm3 (0-0.3); Eosinophils Percent Auto 2.5 % (0-4.4); Hemoglobin 12.6 g/dL (14.0-18.0); Immature Granulocyte Absolute 0.02 K/mm3 (0.00-0.031); Immature Granulocyte Percent A 0.4 % (0-0.5); Lymphocytes Absolute Auto 1.47 K/mm3 (0.9-3.2); Lymphocytes Percent Auto 25.9 % (18.3-44.2); Mean Corpuscular HGB Conc 32.3 g/dl (32-36); Mean Corpuscular Hemoglobin 29.6 pg (26-34); Mean Corpuscular Volume 91.5 fl (80-100); Mean Platelet Volume 10.7 fl (7.4-10.4); Monocytes Absolute Auto 0.5 K/mm3 (0.1-0.6); Neutrophils Absolute Auto 3.5 K/mm3 (1.3-6.7); Neutrophils Percent Auto 60.8 % (45.5-73.1); Platelet Count Result 172 k/mm3 (150-375); Red Blood Count 4.26 M/mm3 (4.6-6.20); Red Cell Distribution Width 12.7 % (11.5-14.5); White Blood Count 5.7 K/mm3 (4.5-10.0)
[2024-04-12 05:24] LABS: Potassium 3.8 mmol/L (3.4-5.0)
[2024-04-12 05:33] LABS: Alanine Aminotransferase 14 U/L (6-50); Albumin Level 3.9 g/dL (3.5-5.1); Alkaline Phosphatase 37 U/L (38-126); Anion Gap 4 mmol/L (4-12); Aspartate Amino Transferase 20 U/L (17-59); Bilirubin,Total 0.5 mg/dL (0.2-1.3); Blood Urea Nitrogen 19 mg/dL (9-20); Calcium 9.1 mg/dL (8.4-10.2); Carbon Dioxide 26 mmol/L (22-30); Chloride 107 mmol/L (98-107); Estimated CRCL calculation 86 ml/min; Estimated Glomerular Filt Rate > 60; Glucose 101 mg/dL (65-110); Sodium 137 mmol/L (137-145)
[2024-04-12] MEDS: hydrALAZINE HCL 50 MG TABLET 100 MG PO ×3 (06:28→22:07)
[2024-04-12] MEDS: carvediloL 12.5 MG TABLET PO ×2 (10:08→22:06)
[2024-04-12] MEDS: amLODIPine BESYLATE 10 MG TABLET BY MOUTH (10:08)
[2024-04-12] MEDS: LORATADINE 10 MG TABLET PO (10:08)
[2024-04-12] MEDS: ATORVASTATIN 40 MG TABLET PO (10:09)
[2024-04-12] MEDS: MONTELUKAST SODIUM 10 MG TABLET BY MOUTH (10:09)
[2024-04-12] MEDS: ASPIRIN 81 MG CHEWABLE TABLET PO (10:09)
--- NOTE | 2024-04-12 10:11 | P.PNIM_ITS ---
Progress Note: A&P Assessment and Plan (1) Chest pain: Code(s): R07.9 - Chest pain, unspecified Status: Acute Assessment and Plan: * Trop: 0.056> 0.059> 0.040 * Denies at present * Cardiology consulted, appreciate recommendations. * Echocardiogram ordered. (2) Benign essential hypertension: Code(s): I10 - Essential (primary) hypertension Status: Acute Assessment and Plan: * Blood pressure 131/82. Continue home meds. * Hydralazine 100 mg PO q 8, Amlodipine 10 mg PO daily, Valsartan 320 mg PO daily, and HCTZ 25 mg PO daily. * Cardiology added Carvedilol 12.5 mg PO q12. (3) Hyperlipidemia: Code(s): E78.5 - Hyperlipidemia, unspecified Status: Acute Assessment and Plan: * Atorvastatin 40 mg PO daily. (4) Chronic GERD: Code(s): K21.9 - Gastro-esophageal reflux disease without esophagitis Status: Acute Assessment and Plan: * Famotidine 40 mg PO at bedtime. Subjective Date/time seen: 04/12/24 10:11 Interval history: Patient sitting up on the side of the bed. NPO for cardiac cath around 11. Patient denies chest pain, palpitations, shortness of breath, nausea, or vomiting. Review of Systems Review of Systems: All systems reviewed & are unremarkable except as noted in HPI and below Exam Const: General: comfortable and no acute distress Eyes: Sclera: sclerae normal Resp: Effort & Inspection: normal respiratory effort Auscultation: clear to auscultation bilaterally Cardio: Rate: regular rate Rhythm: regular rhythm Other: Telemetry SR 70 GI: GI Palp: Yes Soft to palpation Auscultation: normal bowel sounds Skin: General skin exam: no rashes or lesions noted Neuro: Speech: normal speech Extrem: General: no pedal edema Psych: Mental Status: mental status grossly normal Affect: normal affect Objective Data Vital Signs Vital Signs: Vital Signs - 24 hr 04/11/24 12:00 04/11/24 12:00 04/11/24 12:00 Temperature 98.2 F Pulse Rate 66 71 Respiratory Rate 20 Blood Pressure 147/74 H Pulse Oximetry 99 Oxygen Delivery Room Air 04/11/24 14:00 04/11/24 16:00 04/11/24 16:00 Temperature 98.3 F Pulse Rate 73 66 Respiratory Rate 20 Blood Pressure 134/74 Pulse Oximetry 98 Oxygen Delivery Room Air 04/11/24 16:00 04/11/24 18:00 04/11/24 20:00 Temperature Pulse Rate 69 78 75 Respiratory Rate Blood Pressure Pulse Oximetry Oxygen Delivery 04/11/24 20:08 04/11/24 20:20 04/11/24 20:25 Temperature 98.6 F Pulse Rate 73 80 Respiratory Rate 16 Blood Pressure 135/65 Pulse Oximetry 95 Oxygen Delivery Room Air 04/11/24 22:00 04/11/24 23:17 04/12/24 00:00 Temperature 97.8 F Pulse Rate 79 66 Respiratory Rate 16 Blood Pressure 134/71 Pulse Oximetry 97 Oxygen Delivery Room Air 04/12/24 00:00 04/12/24 02:00 04/12/24 04:00 Temperature Pulse Rate 68 65 67 Respiratory Rate Blood Pressure Pulse Oximetry Oxygen Delivery 04/12/24 04:07 04/12/24 04:10 04/12/24 06:00 Temperature 97.9 F Pulse Rate 63 60 Respiratory Rate 16 Blood Pressure 123/72 Pulse Oximetry 96 Oxygen Delivery Room Air 04/12/24 06:40 Temperature 97.2 F L Pulse Rate 63 Respiratory Rate 18 Blood Pressure 126/61 Pulse Oximetry 97 Oxygen Delivery Intake/Output Intake/Output: Intake & Output 04/09/24 04/10/24 04/11/24 04/12/24 23:59 23:59 23:59 23:59 Intake Total 240 1320 597 Output Total 280 900 Balance -40 420 597 Meds/Results Medications: Active Medications Generic Name Dose Route Start Last Admin Trade Name Phillq PRN Reason Stop Dose Admin Acetaminophen 650 mg 04/10/24 22:26 Acetaminophen 325 Mg Tablet PO Q6H PRN Mild Pain (1-3) or Fever Amlodipine Besylate 10 mg 04/11/24 09:00 04/11/24 08:38 Amlodipine Besylate 10 Mg Tablet BY MOUTH 10 mg DAILY [facility] Administration Aspirin 81 mg 04/10/24 08:00 04/11/24 08:38 Aspirin 81 Mg Chewable Tablet PO 81 mg DAILY@0800 [facility] Administration Atorvastatin Calcium 40 mg 04/12/24 09:00 Atorvastatin 40 Mg Tablet PO DAILY [facility] Carvedilol 12.5 mg 04/10/24 21:00 04/11/24 20:25 Carvedilol 12.5 Mg Tablet PO 12.5 mg Q12HR [facility] Administration Famotidine 40 mg 04/10/24 21:00 04/11/24 20:25 Famotidine 20 Mg Tablet BY MOUTH 40 mg HS [facility] Administration Gabapentin 600 mg 04/10/24 21:00 04/11/24 20:26 Gabapentin 300 Mg Capsule BY MOUTH 600 mg HS [facility] Administration Hydralazine HCl 100 mg 04/10/24 14:00 04/12/24 06:28 Hydralazine Hcl 50 Mg Tablet PO 100 mg Q8HR [facility] Administration Hydrochlorothiazide 25 mg 04/11/24 09:00 04/11/24 08:36 Hydrochlorothiazide 25 Mg Tablet PO 25 mg QAM [facility] Administration Loratadine 10 mg 04/11/24 09:00 04/11/24 08:38 Loratadine 10 Mg Tablet PO 10 mg DAILY [facility] Administration Montelukast Sodium 10 mg 04/11/24 09:00 04/11/24 08:38 Montelukast Sodium 10 Mg Tablet BY MOUTH 10 mg DAILY [facility] Administration Nicotine Polacrilex 4 mg 04/10/24 22:30 04/10/24 22:37 Nicotine (*Pbkc) 4 Mg Gum PO 4 mg PRN PRN Administration Nicotine Cravings Nortriptyline HCl 50 mg 04/10/24 21:00 04/11/24 20:26 Nortriptyline Hcl 25 Mg Capsule BY MOUTH 50 mg HS [facility] Administration Perflutren Lipid Microsphere 0 ml 04/10/24 17:16 Perflutren Lipid Microspheres 1.5 Ml Vial Diluted To 10 Ml Total Volume IV PUSH 04/13/24 17:17 ONCE PRN adequate visualization Protocol Psyllium Hydrophilic Mucilloid 1 packet 04/11/24 09:00 04/11/24 08:40 Psyllium Powder Packet BY MOUTH Not Given DAILY [facility] Valsartan 320 mg 04/11/24 09:00 04/11/24 08:36 Valsartan 160 Mg Tablet PO 320 mg QAM [facility] Administration Radiology Results: ITS Impressions Chest X-Ray 04/09/24 23:18 IMPRESSION: Previously seen masses are not demonstrated. No acute cardiopulmonary pathology. Chest CTA 04/10/24 14:27 IMPRESSION: 1. No pulmonary embolism. 2. No acute cardiopulmonary pathology. 3. Nodules in the right and left upper lobes. 3 months follow-up CT scan is advised. 4. Hypodensity in the wall of the stomach. Further evaluation advised. 5. Borderline lymph nodes surrounding the head of the pancreas. Labs Labs: Laboratory Results - last 24 hr 04/12/24 04:03 WBC 5.7 RBC 4.26 L Hgb 12.6 L Hct 39.0 L MCV 91.5 MCH 29.6 MCHC 32.3 RDW 12.7 Plt Count 172 MPV 10.7 H Immature Gran % (Auto) 0.4 Neut % (Auto) 60.8 Lymph % (Auto) 25.9 Vil[place] % (Auto) 9.0 H Eos % (Auto) 2.5 Baso % (Auto) 1.4 H Lymph # (Auto) 1.47 [place] # (Auto) 0.5 Eos # (Auto) 0.1 Baso # (Auto) 0.1 Abs Immat Gran (auto) 0.02 Absolute Neuts (auto) 3.5 Absolute Nucleated RBC 0.000 Nucleated RBC % 0.0 Sodium 137 Potassium 3.8 Chloride 107 Carbon Dioxide 26 Anion Gap 4 BUN 19 Creatinine 1.00 Estim Creat Clear Calc 86 Estimated GFR > 60 Glucose 101 Calcium 9.1 Magnesium 2.0 Total Bilirubin 0.5 AST 20 ALT 14 Alkaline Phosphatase 37 L Total Protein 7.0 Albumin 3.9 Quality VTE Prophylaxis VTE prophylaxis: mechanical ordered
[2024-04-12] MEDS: VALSARTAN 160 MG TABLET 320 MG PO (10:40)
--- NOTE | 2024-04-12 11:05 | WPDHPUPDATE1 ---
History and Physical Update Update Date/Time: 04/12/24 10:05 History and Physical has been reviewed, including an updated exam of the patient. There are NO changes in the patient's condition. Risks, benefits, and alternatives have been discussed and questions answered. Patient agrees to proceed with procedure.
--- NOTE | 2024-04-12 11:06 | P.SEDATION_ITS ---
Moderate Sedation Note-Pt Data Patient Data Allergies Allergy/AdvReac Type Severity Reaction Status Date / Time oxycodone Allergy Severe Rash, Verified 04/09/24 22:20 ITCHING Penicillins AdvReac Severe N/V Verified 04/09/24 22:20 tetracycline AdvReac Severe VOMITING, Verified 04/09/24 22:20 DIARRHEA Home Medications ?Medication ?Instructions ?Recorded ?Confirmed ?Type psyllium husk 0.4 gram capsule 0.4 g PO DAILY 06/27/23 04/10/24 History (Daily Fiber) loratadine 10 mg tablet (Allergy 10 mg PO DAILY #30 tabs 08/29/23 04/10/24 Rx Relief (loratadine)) valsartan 320 See Rx Instructions .Route 08/29/23 04/10/24 Rx mg-hydrochlorothiazide 25 mg tablet .COMPLEX #90 tabs gabapentin 300 mg capsule See Rx Instructions .Route 09/02/23 04/10/24 Rx .COMPLEX #180 caps hydralazine 100 mg tablet See Rx Instructions .Route 11/10/23 04/10/24 Rx .COMPLEX #270 tabs meloxicam 7.5 mg tablet See Rx Instructions .Route 02/05/24 04/10/24 Rx .COMPLEX #90 tabs amlodipine 10 mg tablet See Rx Instructions .Route 03/12/24 04/10/24 Rx .COMPLEX #90 tabs montelukast 10 mg tablet See Rx Instructions .Route 03/12/24 04/10/24 Rx .COMPLEX #90 tabs nortriptyline 50 mg capsule See Rx Instructions .Route 03/12/24 04/10/24 Rx .COMPLEX #90 caps pravastatin 40 mg tablet See Rx Instructions .Route 03/12/24 04/10/24 Rx .COMPLEX #90 tabs tadalafil 5 mg tablet (Cialis) 5 mg PO DAILY #90 tabs 03/12/24 04/10/24 Rx famotidine 40 mg tablet See Rx Instructions .Route 03/18/24 04/10/24 Rx .COMPLEX #90 tabs fluticasone propionate 50 See Rx Instructions .Route 03/18/24 04/10/24 Rx mcg/actuation nasal .COMPLEX #48 grams spray,suspension Current Medications: Active Medications Acetaminophen (Acetaminophen 325 Mg Tablet) 650 mg PO Q6H PRN PRN Reason: Mild Pain (1-3) or Fever Amlodipine Besylate (Amlodipine Besylate 10 Mg Tablet) 10 mg BY MOUTH DAILY COUNTS INCLUDE 234 BEDS AT THE [facility] Last Admin: 04/12/24 10:08 Dose: 10 mg Aspirin (Aspirin 81 Mg Chewable Tablet) 81 mg PO DAILY@0800 COUNTS INCLUDE 234 BEDS AT THE [facility] Last Admin: 04/12/24 10:09 Dose: 81 mg Atorvastatin Calcium (Atorvastatin 40 Mg Tablet) 40 mg PO DAILY COUNTS INCLUDE 234 BEDS AT THE [facility] Last Admin: 04/12/24 10:09 Dose: 40 mg Carvedilol (Carvedilol 12.5 Mg Tablet) 12.5 mg PO Q12HR COUNTS INCLUDE 234 BEDS AT THE [facility] Last Admin: 04/12/24 10:08 Dose: 12.5 mg Famotidine (Famotidine 20 Mg Tablet) 40 mg BY MOUTH [facility] Last Admin: 04/11/24 20:25 Dose: 40 mg Gabapentin (Gabapentin 300 Mg Capsule) 600 mg BY MOUTH [facility] Last Admin: 04/11/24 20:26 Dose: 600 mg Hydralazine HCl (Hydralazine Hcl 50 Mg Tablet) 100 mg PO Q8HR COUNTS INCLUDE 234 BEDS AT THE [facility] Last Admin: 04/12/24 06:28 Dose: 100 mg Hydrochlorothiazide (Hydrochlorothiazide 25 Mg Tablet) 25 mg PO QAM COUNTS INCLUDE 234 BEDS AT THE [facility] Last Admin: 04/11/24 08:36 Dose: 25 mg Loratadine (Loratadine 10 Mg Tablet) 10 mg PO DAILY COUNTS INCLUDE 234 BEDS AT THE [facility] Last Admin: 04/12/24 10:08 Dose: 10 mg Montelukast Sodium (Montelukast Sodium 10 Mg Tablet) 10 mg BY MOUTH DAILY COUNTS INCLUDE 234 BEDS AT THE [facility] Last Admin: 04/12/24 10:09 Dose: 10 mg Nicotine Polacrilex (Nicotine (*Pbkc) 4 Mg Gum) 4 mg PO PRN PRN PRN Reason: Nicotine Cravings Last Admin: 04/10/24 22:37 Dose: 4 mg Nortriptyline HCl (Nortriptyline Hcl 25 Mg Capsule) 50 mg BY MOUTH [facility] Last Admin: 04/11/24 20:26 Dose: 50 mg Perflutren Lipid Microsphere (Perflutren Lipid Microspheres 1.5 Ml Vial Diluted To 10 Ml Total Volume) 0 ml IV PUSH ONCE PRN; Protocol PRN Reason: adequate visualization Stop: 04/13/24 17:17 Psyllium Hydrophilic Mucilloid (Psyllium Powder Packet) 1 packet BY MOUTH DAILY COUNTS INCLUDE 234 BEDS AT THE [facility] Last Admin: 04/12/24 10:06 Dose: Not Given Valsartan (Valsartan 160 Mg Tablet) 320 mg PO [facility] Last Admin: 04/12/24 10:40 Dose: 320 mg Sedation/Anesthesia: No previous sedation/anesthesia problems (including family history). [facility] Past Medical History Medical History Prostate cancer Status post radical prostatectomy. Clostridium difficile diarrhea (2020) Hyperlipidemia Erectile dysfunction Headaches due to old head injury Renal cell carcinoma Status post partial left nephrectomy. Benign essential hypertension Surgical History Surgical History History of incisional hernia repair (09/2021) History of arthroscopy of both shoulders History of partial nephrectomy Left partial nephrectomy for RCC. History of radical prostatectomy Prostate cancer. History of Adeola fundoplication (04/30/23) Robotic assisted laparoscopic History of surgery on wrist ORIF left wrist fracture. History of cholecystectomy History of kidney surgery Family History Family History Grandparent Cerebrovascular accident Hypertension Mother Diabetes mellitus Heart disease Lupus Social History Social History Social History: Surrogate medical decision maker: Davy Stanley, spouse. Code status: Full code. Smoking packs per day: 1 Smoking cigarettes per day: 20.0 Years smoked: 46 Smoking pack-years: 46.00 Smoking status: Former smoker Tobacco type: cigarettes Second hand tobacco smoke exposure: Yes Smoking end date: 06/27/23 Alcohol intake: current Drinks per week: 3 Alcohol use details: occasional Substance use: never Substance use type: does not use Do You Feel Safe in your Home?: Yes Lack of Transportation: No Lack of Food: Never True Current Housing: I Have Housing Concerned About Future Housing: No Difficulty Paying Gas/Electric Bills: No Difficulty Paying for Meds: No Currently Unemployed: No Education: High School Diploma/GED Difficulty w/ Childcare or Family Care: No Living arrangements: with family Spiritual care concerns: No Mod Sed Physical Exam Physical Exam Pre Procedural Exam: Normal: Heart Rate and Heart Rhythm Hours since solid foods: 15 Hours since liquid intake: 15 Mallampati Classification: class II Internal Medicine - PN: Obj Da Vital Signs Vital Signs: Vital Signs - 24 hr 04/11/24 12:00 04/11/24 12:00 04/11/24 12:00 Temperature 36.8 C Pulse Rate 66 71 Respiratory Rate 20 Blood Pressure 147/74 H Pulse Oximetry 99 Oxygen Delivery Room Air 04/11/24 14:00 04/11/24 16:00 04/11/24 16:00 Temperature 36.8 C Pulse Rate 73 66 Respiratory Rate 20 Blood Pressure 134/74 Pulse Oximetry 98 Oxygen Delivery Room Air 04/11/24 16:00 04/11/24 18:00 04/11/24 20:00 Temperature Pulse Rate 69 78 75 Respiratory Rate Blood Pressure Pulse Oximetry Oxygen Delivery 04/11/24 20:08 04/11/24 20:20 04/11/24 20:25 Temperature 37.0 C Pulse Rate 73 80 Respiratory Rate 16 Blood Pressure 135/65 Pulse Oximetry 95 Oxygen Delivery Room Air 04/11/24 22:00 04/11/24 23:17 04/12/24 00:00 Temperature 36.6 C Pulse Rate 79 66 Respiratory Rate 16 Blood Pressure 134/71 Pulse Oximetry 97 Oxygen Delivery Room Air 04/12/24 00:00 04/12/24 02:00 04/12/24 04:00 Temperature Pulse Rate 68 65 67 Respiratory Rate Blood Pressure Pulse Oximetry Oxygen Delivery 04/12/24 04:07 04/12/24 04:10 04/12/24 06:00 Temperature 36.6 C Pulse Rate 63 60 Respiratory Rate 16 Blood Pressure 123/72 Pulse Oximetry 96 Oxygen Delivery Room Air 04/12/24 06:40 04/12/24 10:08 Temperature 36.2 C L Pulse Rate 63 66 Respiratory Rate 18 Blood Pressure 126/61 Pulse Oximetry 97 Oxygen Delivery Intake/Output Intake/Output: Intake & Output 04/09/24 04/10/24 04/11/24 04/12/24 23:59 23:59 23:59 23:59 Intake Total 240 1320 597 Output Total 280 900 Balance -40 420 597 Meds/Results Medications: Active Medications Generic Name Dose Route Start Last Admin Trade Name Freq PRN Reason Stop Dose Admin Acetaminophen 650 mg 04/10/24 22:26 Acetaminophen 325 Mg Tablet PO Q6H PRN Mild Pain (1-3) or Fever Amlodipine Besylate 10 mg 04/11/24 09:00 04/12/24 10:08 Amlodipine Besylate 10 Mg Tablet BY MOUTH 10 mg DAILY NEGRITA Administration Aspirin 81 mg 04/10/24 08:00 04/12/24 10:09 Aspirin 81 Mg Chewable Tablet PO 81 mg DAILY@0800 NEGRITA Administration Atorvastatin Calcium 40 mg 04/12/24 09:00 04/12/24 10:09 Atorvastatin 40 Mg Tablet PO 40 mg DAILY NEGRITA Administration Carvedilol 12.5 mg 04/10/24 21:00 04/12/24 10:08 Carvedilol 12.5 Mg Tablet PO 12.5 mg Q12HR NEGRITA Administration Famotidine 40 mg 04/10/24 21:00 04/11/24 20:25 Famotidine 20 Mg Tablet BY MOUTH 40 mg HS NEGRITA Administration Gabapentin 600 mg 04/10/24 21:00 04/11/24 20:26 Gabapentin 300 Mg Capsule BY MOUTH 600 mg HS NEGRITA Administration Hydralazine HCl 100 mg 04/10/24 14:00 04/12/24 06:28 Hydralazine Hcl 50 Mg Tablet PO 100 mg Q8HR NEGRITA Administration Hydrochlorothiazide 25 mg 04/11/24 09:00 04/11/24 08:36 Hydrochlorothiazide 25 Mg Tablet PO 25 mg QAM NEGRITA Administration Loratadine 10 mg 04/11/24 09:00 04/12/24 10:08 Loratadine 10 Mg Tablet PO 10 mg DAILY NEGRITA Administration Montelukast Sodium 10 mg 04/11/24 09:00 04/12/24 10:09 Montelukast Sodium 10 Mg Tablet BY MOUTH 10 mg DAILY NEGRITA Administration Nicotine Polacrilex 4 mg 04/10/24 22:30 04/10/24 22:37 Nicotine (*Pbkc) 4 Mg Gum PO 4 mg PRN PRN Administration Nicotine Cravings Nortriptyline HCl 50 mg 04/10/24 21:00 04/11/24 20:26 Nortriptyline Hcl 25 Mg Capsule BY MOUTH 50 mg HS NEGRITA Administration Perflutren Lipid Microsphere 0 ml 04/10/24 17:16 Perflutren Lipid Microspheres 1.5 Ml Vial Diluted To 10 Ml Total Volume IV PUSH 04/13/24 17:17 ONCE PRN adequate visualization Protocol Psyllium Hydrophilic Mucilloid 1 packet 04/11/24 09:00 04/12/24 10:06 Psyllium Powder Packet BY MOUTH Not Given DAILY NEGRITA Valsartan 320 mg 04/11/24 09:00 04/12/24 10:40 Valsartan 160 Mg Tablet PO 320 mg QAM COUNTS INCLUDE 234 BEDS AT THE [facility] Administration Radiology Results: ITS Impressions Chest X-Ray 04/09/24 23:18 IMPRESSION: Previously seen masses are not demonstrated. No acute cardiopulmonary pathology. Chest CTA 04/10/24 14:27 IMPRESSION: 1. No pulmonary embolism. 2. No acute cardiopulmonary pathology. 3. Nodules in the right and left upper lobes. 3 months follow-up CT scan is advised. 4. Hypodensity in the wall of the stomach. Further evaluation advised. 5. Borderline lymph nodes surrounding the head of the pancreas. Labs 04/12/24 04:03 04/12/24 04:03 Labs: Laboratory Results - last 24 hr 04/12/24 04:03 WBC 5.7 RBC 4.26 L Hgb 12.6 L Hct 39.0 L MCV 91.5 MCH 29.6 MCHC 32.3 RDW 12.7 Plt Count 172 MPV 10.7 H Immature Gran % (Auto) 0.4 Neut % (Auto) 60.8 Lymph % (Auto) 25.9 Hughes % (Auto) 9.0 H Eos % (Auto) 2.5 Baso % (Auto) 1.4 H Lymph # (Auto) 1.47 Hughes # (Auto) 0.5 Eos # (Auto) 0.1 Baso # (Auto) 0.1 Abs Immat Gran (auto) 0.02 Absolute Neuts (auto) 3.5 Absolute Nucleated RBC 0.000 Nucleated RBC % 0.0 Sodium 137 Potassium 3.8 Chloride 107 Carbon Dioxide 26 Anion Gap 4 BUN 19 Creatinine 1.00 Estim Creat Clear Calc 86 Estimated GFR > 60 Glucose 101 Calcium 9.1 Magnesium 2.0 Total Bilirubin 0.5 AST 20 ALT 14 Alkaline Phosphatase 37 L Total Protein 7.0 Albumin 3.9 ASA Classification/Sedation ASA Classification/Sedation ASA Class: III Emergent: No Risks: Risks, benefits and alternatives explained and patient/family accepted plan for sedation. Patient re-evaluated immediately prior to sedation.
--- NOTE | 2024-04-12 12:04 | WPDCARDPROC ---
Cardiac Cath Procedure Note Date of procedure:: 04/12/24 Performing physician:: CATHETERIZATION LABORATORY REPORT Procedure Date: 04/12/2024 Referring Physician: Dr. De Anda Anesthesia: Versed and Fentanyl were ordered and given in my presence at 1143, procedure ended at 1200. Supervision of nurse, Sang Juarez monitored moderate sedation with 2mg Versed and 50mcg Fentanyl and 50mg benadryl was provided for 17 minutes. Pre-op Diagnosis: NSTEMI Post-op Diagnosis: NSTEMI Procedure(s): Left heart catheterization with coronary angiography Access Site: Right radial artery Brief History and Clinical Indications: All risks, benefits and alternatives to left heart catheterization with or without percutaneous coronary intervention was discussed at length with the patient. Risk of complications including but not limited to bleeding, infection, arrhythmia, stroke, worsening kidney function, blood loss, groin hematoma, limb loss, emergency coronary artery bypass grafting, and even were discussed with the patient and all questions were answered. The patient understood and wished to proceed. Time out called, patient name, date of , medical record number, allergies, procedure performed, identify Tailing Machine Operator, patient and staff member concurred with accurate data, procedure carried on. Findings: LEFT HEART CATHETERIZATION FINDINGS: 1. Left main: The left main coronary artery in its distal body has a 60% stenosis. 2. Left anterior descending: The LAD gives off 3 significant diagonal branches. The 1st diagonal branch has 70% stenosis at its ostium and proximal body. The the remainder significant diagonal branches are free of obstructive angiographic disease. The LAD has minimal luminal irregularities throughout its vessel. It contributes to collaterals to the RPDA territories. 3. Left circumflex: The left circumflex artery branches into 2 main OM branches. The 1st OM branch splits into 2 small caliber vessels and prior to the bifurcation, there is a subtotal occlusion. The remainder of the left circumflex provides a few groove branches that contribute collaterals to the RPL territories. The left circumflex artery itself has mild coronary artery disease. 4. Right coronary artery: The RCA is a large dominant vessel with a FLOOR MECHANIC in its proximal body. 5. Left ventricle: A. End-diastolic pressure 16 mmHg. B. LV gram deferred. C. No significant gradient across aortic valve on catheter pullback. 6. Opening AO pressure 107/72 and closing AO pressure 115/54 Description of Procedure: Informed consent signed and placed in the chart. Patient transferred to landscape and yardwork laborer room. Prepped and draped in usual sterile fashion. 2% lidocaine injected subcutaneously in right wrist area. 22-gauge venipuncture catheter used to access the right radial artery with the Seldinger technique. 6-FR slender sheath placed in right radial artery. Nitroglycerin 200mcg, Verapamil 2.5mg, and Heparin 5000U was given intraarterial through the sheath. J wire advanced under fluoroscopy 5F TIG diagnostic catheter engaged Left Main Coronary Artery. 5F JR4 diagnostic catheter engaged Right Coronary Artery Multiple orthogonal angiogram obtained and reviewed 5F JR4 diagnostic catheter crossed aortic valve to obtain LVEDP, LV angiogram deferred. Hemostasis was achieved by application of TR band. 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 b.i.d. Will order repeat transthoracic echocardiogram Anuel Kendall Interventional Cardiology
[2024-04-12] MEDS: SODIUM CHLORIDE 0.9% IV 1,000 ML 125 ML IV CONT (16:52)
[2024-04-12] MEDS: hydroCHLOROthiazide 25 MG TABLET PO (16:53)
[2024-04-12] MEDS: PERFLUTREN LIPID MICROSPHERES 1.5 ML VIAL DILUTED TO 10 ML TOTAL VOLUME IV PUSH (18:33)
--- NOTE | 2024-04-12 18:52 | IVDEFINITY ---
Prior to administration of IV Definity the patient was educated on the risks and benefits of the imaging enhancing agent including potential adverse side effects. The patient verbalized understanding. Allergies were verified. No exclusion criteria were identified and at least one of the following inclusion criteria were met: 1) physician request, 2) patient technically difficult to image (per the [place] [employer] Echocardi[employer] guidelines of two or more segments not discernable within the apical view), or 3) questionable left ventricular function. ?
--- NOTE | 2024-04-12 21:34 | PC.NURSE ---
Due to weather, [facility] unable to make [facility] tonight[facility] will revaluate the mile radius in morning. [facility] transfer Line called and made aware. Patient to keep bed.
[2024-04-12] MEDS: FAMOTIDINE 20 MG TABLET 40 MG BY MOUTH (22:06)
[2024-04-12] MEDS: NORTRIPTYLINE HCL 25 MG CAPSULE 50 MG BY MOUTH (22:07)
[2024-04-12] MEDS: GABAPENTIN 300 MG CAPSULE 600 MG BY MOUTH (22:07)
[2024-04-12] MEDS: ALPRAZolam (*CRX) 0.25 MG TABLET PO (23:59)
[2024-04-13] VITALS (8 sets, daily range): BP systolic 114–149; BP diastolic 55–75; PULSE 65–73; RESP 16–18; TEMP 36.7–37.1; O2SAT 97–100
[2024-04-13] MEDS: ACETAMINOPHEN 325 MG TABLET 650 MG PO
[2024-04-13 04:52] LABS: Basophils Absolute Auto 0.1 K/mm3 (0.0-0.1); Basophils Percent Auto 0.9 % (0.2-1.2); Eosinophils Absolute Auto 0.1 K/mm3 (0-0.3); Eosinophils Percent Auto 1.7 % (0-4.4); Hematocrit 36.7 % (42.0-52.0); Hemoglobin 12.3 g/dL (14.0-18.0); Immature Granulocyte Absolute 0.03 K/mm3 (0.00-0.031); Immature Granulocyte Percent A 0.4 % (0-0.5); Lymphocytes Absolute Auto 1.39 K/mm3 (0.9-3.2); Lymphocytes Percent Auto 20.3 % (18.3-44.2); Mean Corpuscular HGB Conc 33.5 g/dl (32-36); Mean Corpuscular Hemoglobin 30.1 pg (26-34); Mean Corpuscular Volume 89.7 fl (80-100); Mean Platelet Volume 10.7 fl (7.4-10.4); Monocytes Absolute Auto 0.7 K/mm3 (0.1-0.6); Monocytes Percent Auto 9.8 % (2.6-8.5); Neutrophils Absolute Auto 4.6 K/mm3 (1.3-6.7); Neutrophils Percent Auto 66.9 % (45.5-73.1); Platelet Count Result 168 k/mm3 (150-375); Red Blood Count 4.09 M/mm3 (4.6-6.20); Red Cell Distribution Width 12.8 % (11.5-14.5); White Blood Count 6.9 K/mm3 (4.5-10.0)
[2024-04-13 05:06] LABS: Alanine Aminotransferase 14 U/L (6-50); Albumin Level 3.6 g/dL (3.5-5.1); Alkaline Phosphatase 36 U/L (38-126); Anion Gap 6 mmol/L (4-12); Aspartate Amino Transferase 16 U/L (17-59); Bilirubin,Total 0.4 mg/dL (0.2-1.3); Blood Urea Nitrogen 18 mg/dL (9-20); Carbon Dioxide 25 mmol/L (22-30); Chloride 108 mmol/L (98-107); Estimated CRCL calculation 95 ml/min; Estimated Glomerular Filt Rate > 60; Glucose 130 mg/dL (65-110); Magnesium 1.9 mg/dL (1.6-2.3); Potassium 3.5 mmol/L (3.4-5.0); Sodium 139 mmol/L (137-145)
[2024-04-13] MEDS: hydrALAZINE HCL 50 MG TABLET 100 MG PO (06:27)
[2024-04-13] MEDS: VALSARTAN 160 MG TABLET 320 MG PO (08:13)
[2024-04-13] MEDS: hydroCHLOROthiazide 25 MG TABLET PO (08:13)
[2024-04-13] MEDS: MONTELUKAST SODIUM 10 MG TABLET BY MOUTH (08:13)
[2024-04-13] MEDS: ATORVASTATIN 40 MG TABLET PO (08:14)
[2024-04-13] MEDS: carvediloL 12.5 MG TABLET PO (08:14)
[2024-04-13] MEDS: ASPIRIN 81 MG CHEWABLE TABLET PO (08:14)
[2024-04-13] MEDS: LORATADINE 10 MG TABLET PO (08:14)
[2024-04-13] MEDS: amLODIPine BESYLATE 10 MG TABLET BY MOUTH (08:19)
--- NOTE | 2024-04-13 09:16 | PM.TDS ---
Transfer Discharge Sum: Prov Provider Date of admission: 04/10/24 06:10 Primary care physician: Pipe Vivar MD Admitting clinician: Thania oHffman DO Consults: 04/10/24 06:10 Consult to Physician Routine Comment: Consulting Provider: Jaime Caldera Reason for consultation: Chest pain, elevated troponin Has provider been notified: Yes 04/11/24 Consult to Physician Routine Comment: Consulting Provider: Kevan Sales faculty i on call medical assistant/MD group to consult: GI Reason for consultation: Hypodensity in the wall of the stomach. Borderline lymph nodes surrounding Has provider been notified: Yes Attending physician on discharge: Ciro Christensen Discharging clinician: Taylor De Anda Anticipated date of transfer: 04/13/24 Receiving physician/facility: [facility] DS: Admitting Diagnosis Discharge Date 04/13/24 Admitting Diagnosis chest pain DS: Discharge Diagnosis Discharge Diagnosis (1) NSTEMI (non-ST elevated myocardial infarction): Code(s): I21.4 - Non-ST elevation (NSTEMI) myocardial infarction Status: Acute (2) Benign essential hypertension: Code(s): I10 - Essential (primary) hypertension Status: Acute (3) Hyperlipidemia: Code(s): E78.5 - Hyperlipidemia, unspecified Status: Acute (4) Chronic GERD: Code(s): K21.9 - Gastro-esophageal reflux disease without esophagitis Status: Acute Transfer Discharge Sum: Med Medications Active and Home Medications: Home Medications psyllium husk 0.4 gram capsule (Daily Fiber) 0.4 g PO DAILY 06/27/23 [History Confirmed 04/10/24] loratadine 10 mg tablet (Allergy Relief (loratadine)) 10 mg PO DAILY #30 tabs 08/29/23 [Rx Confirmed 04/10/24] valsartan 320 mg-hydrochlorothiazide 25 mg tablet See Rx Instructions .Route .COMPLEX #90 tabs 08/29/23 [Rx Confirmed 04/10/24] gabapentin 300 mg capsule See Rx Instructions .Route .COMPLEX #180 caps 09/02/23 [Rx Confirmed 04/10/24] hydralazine 100 mg tablet See Rx Instructions .Route .COMPLEX #270 tabs 11/10/23 [Rx Confirmed 04/10/24] meloxicam 7.5 mg tablet See Rx Instructions .Route .COMPLEX #90 tabs 02/05/24 [Rx Confirmed 04/10/24] amlodipine 10 mg tablet See Rx Instructions .Route .COMPLEX #90 tabs 03/12/24 [Rx Confirmed 04/10/24] montelukast 10 mg tablet See Rx Instructions .Route .COMPLEX #90 tabs 03/12/24 [Rx Confirmed 04/10/24] nortriptyline 50 mg capsule See Rx Instructions .Route .COMPLEX #90 caps 03/12/24 [Rx Confirmed 04/10/24] pravastatin 40 mg tablet See Rx Instructions .Route .COMPLEX #90 tabs 03/12/24 [Rx Confirmed 04/10/24] tadalafil 5 mg tablet (Cialis) 5 mg PO DAILY #90 tabs 03/12/24 [Rx Confirmed 04/10/24] famotidine 40 mg tablet See Rx Instructions .Route .COMPLEX #90 tabs 03/18/24 [Rx Confirmed 04/10/24] fluticasone propionate 50 mcg/actuation nasal spray,suspension See Rx Instructions .Route .COMPLEX #48 grams 03/18/24 [Rx Confirmed 04/10/24] Transfer Discharge Sum: Hosp Hospital Course Hospital course: Patient is a 58 year old male that came to the ER today with chest pain. Patient reports that the chest pain lasted a few hours and was a 5 with constant pressure radiating into back. Patient reports that he was at work and things were going wrong at work. Patient denies chest pain at present. Patient denies palpitations, headache, dizziness, nausea, or vomiting. Patient reports history of a 1/2 inch of left kidney removed, prostate cancer, left wrist surgeries, bilateral shoulder surgeries, and a cholecystectomy. Patient reports having pneumonia last year in June of 2023 that required a chest tube. Trop: 0.056> 0.059> 0.040. EKG SR 77 [id number]. Chest X-ray: IMPRESSION: Previously seen masses are not demonstrated. No acute cardiopulmonary pathology. Chest CTA: MPRESSION: 1. No pulmonary embolism. 2. No acute cardiopulmonary pathology. 3. Nodules in the right and left upper lobes. 3 months follow-up CT scan is advised. 4. Hypodensity in the wall of the stomach. Further evaluation advised. 5. Borderline lymph nodes surrounding the head of the pancreas. Followed by Cardiology and GI during visit. Patient will need a follow up abdominal CT with contrast and EGD once cleared cardiac. Coreg 12.5 mg PO q12 and Atorvastatin 40 mg PO daily added. Marin Stanley is a 58 year old male LEFT HEART CATHETERIZATION FINDINGS: 1. Left main: The left main coronary artery in its distal body has a 60% stenosis. 2. Left anterior descending: The LAD gives off 3 significant diagonal branches. The 1st diagonal branch has 70% stenosis at its ostium and proximal body. The the remainder significant diagonal branches are free of obstructive angiographic disease. The LAD has minimal luminal irregularities throughout its vessel. It contributes to collaterals to the RPDA territories. 3. Left circumflex: The left circumflex artery branches into 2 main OM branches. The 1st OM branch splits into 2 small caliber vessels and prior to the bifurcation, there is a subtotal occlusion. The remainder of the left circumflex provides a few groove branches that contribute collaterals to the RPL territories. The left circumflex artery itself has mild coronary artery disease. 4. Right coronary artery: The RCA is a large dominant vessel with a SALESPERSON NECKTIES in its proximal body. 5. Left ventricle: A. End-diastolic pressure 16 mmHg. B. LV gram deferred. C. No significant gradient across aortic valve on catheter pullback. 6. Opening AO pressure 107/72 and closing AO pressure 115/54 Description of Procedure: Informed consent signed and placed in the chart. Patient transferred to hospital laboratory technician room. Prepped and draped in usual sterile fashion. 2% lidocaine injected subcutaneously in right wrist area. 22-gauge venipuncture catheter used to access the right radial artery with the Seldinger technique. 6-FR slender sheath placed in right radial artery. Nitroglycerin 200mcg, Verapamil 2.5mg, and Heparin 5000U was given intraarterial through the sheath. J wire advanced under fluoroscopy 5F TIG diagnostic catheter engaged Left Main Coronary Artery. 5F JR4 diagnostic catheter engaged Right Coronary Artery Multiple orthogonal angiogram obtained and reviewed 5F JR4 diagnostic catheter crossed aortic valve to obtain LVEDP, LV angiogram deferred. Hemostasis was achieved by application of TR band. 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 b.i.d. Will order repeat transthoracic echocardiogram Patient transferred to [facility] around 8:30 this morning. Exam Narrative: Physical exam not done prior to transfer but I saw patient yesterday. DS: Data Data Completed and Pending Labs on day of discharge: Labs from last 24 hours 04/13/24 04:12 WBC 6.9 RBC 4.09 L Hgb 12.3 L Hct 36.7 L MCV 89.7 MCH 30.1 MCHC 33.5 RDW 12.8 Plt Count 168 MPV 10.7 H Immature Gran % (Auto) 0.4 Neut % (Auto) 66.9 Lymph % (Auto) 20.3 [place] % (Auto) 9.8 H Eos % (Auto) 1.7 Baso % (Auto) 0.9 Lymph # (Auto) 1.39 [place] # (Auto) 0.7 H Eos # (Auto) 0.1 Baso # (Auto) 0.1 Abs Immat Gran (auto) 0.03 Absolute Neuts (auto) 4.6 Absolute Nucleated RBC 0.000 Nucleated RBC % 0.0 Sodium 139 Potassium 3.5 Chloride 108 H Carbon Dioxide 25 Anion Gap 6 BUN 18 Creatinine 0.90 Estim Creat Clear Calc 95 Estimated GFR > 60 Glucose 130 H Calcium 9.0 Magnesium 1.9 Total Bilirubin 0.4 AST 16 L ALT 14 Alkaline Phosphatase 36 L Total Protein 7.0 Albumin 3.6
== END 2024-04-13 08:30 | disposition short-term general hospital (02) ==
LOC: ANHED 04-10 06:12 → ANHIMU 04-10 08:03
PROVIDERS: Internal Medicine; Nurse Practitioner Family; Admitting Provider Internal Medicine; Emergency Provider Emergency Medicine; PCP Family Medicine; Visit Provider Internal Medicine
PROC: 4A023N7 Measurement of Cardiac Sampling and Pressure, Left Heart, Percutaneous Approach (ICD-10-PCS; CPT 93452; principal; 2024-04-12 11:00)
DX: I21.4 Non-ST elevation (NSTEMI) myocardial infarction (principal); I25.10 Atherosclerotic heart disease of native coronary artery without angina pectoris; I10 Essential (primary) hypertension; E78.5 Hyperlipidemia, unspecified; K21.9 Gastro-esophageal reflux disease without esophagitis; R79.89 Other specified abnormal findings of blood chemistry; Z90.5 Acquired absence of kidney; Z79.899 Other long term (current) drug therapy; Z87.891 Personal history of nicotine dependence; Z85.46 Personal history of malignant neoplasm of prostate; Z85.528 Personal history of other malignant neoplasm of kidney; Z87.01 Personal history of pneumonia (recurrent); Z90.49 Acquired absence of other specified parts of digestive tract
CPT/HCPCS: 36415; 71046; 71275; 80053; 83690; 83735; 84484; 85025; 85610; 85730; 93005; 93306; 93458; 99285; A9270; C1769; C1887; C1894; G0378; J1200; J1644; J2003; J2250; J3010; J7030; J7040; Q9957; Q9967

== ENCOUNTER 2024-06-24 13:25 | Outpatient (CLI) | payer BC, SELFPAY ==
--- NOTE | ~2024-06-24 | CT_ITS ---
Clinical Indication: Nonspecific abnormal finding of lung field CT Scan of the Chest and Abdomen without Contrast: Technique: Contiguous sections were acquired throughout the chest and abdomen without IV contrast adm inistration. Dose reduction technique was used on this scan by utilizing automated exposure control a nd iterative reconstruction technique. The dose-length product (DLP) was 982.54 mGy-cm. Comparison: 06/29/2023, 04/10/2024 Findings: There is no evidence of any significant mediastinal, hilar or axillary lymphadenopathy. The mediastin al soft tissues appear normal. There is no evidence of pleural or pericardial effusion. Stable small spiculated nodule in the left lung apex (axial image 23). Stable additional small right upper lobe nodule. There are additional areas of mild linear scarring at the left lower lobe and infe rior right upper lobe. The liver, spleen, pancreas, and adrenal glands are within normal limits. Cholecystectomy clips are p resent. Small hyperdense right renal cyst present. Probable postoperative change along the anterior m argin of the left kidney. There are extensive atherosclerotic calcification the aorta, with minimal a neurysmal dilatation to 2.7 cm. No lymphadenopathy. Stable focal hyperdensity in the gastric wall near the posterior fundus, with fat attenuation. No asc ites. Impression: Stable small spiculated nodule left lung apex. Stable additional small right upper lobe nodule. Additional chronic findings, as above. Reviewed, dictated and finalized at [facility]. Impression: Stable small spiculated nodule left lung apex. Stable additional small right up per lobe nodule. Additional chronic findings, as above.
--- OUTSIDE RECORDS SUMMARY | 2024-06-24 13:52 | XMS_ITS | Clinical Summary ---
Author Organization [facility] Address [address] [place] [id number] Care Team Providers Care Cardiovascular Disease Specialist Name Role Phone Unavailable Primary Care Provider Unavailabl e Social History Tobacco Use Types Packs/Day Years Used Date Smoking Tobacco: Never Assessed Sex and Gender Information Value Date Recorded Sex Assigned at Not on file Legal Sex Male 7:48 PM CDT Gender Identity Not on file Sexual Orientation Not on file Plan of Treatment Health Maintenance Due Date Last Done Comments Colorectal Cancer Screening Colonoscopy (10 Years) 1964 Annual Physical 1967 Hepatitis C 1982 DTaP, Tdap and Td Vaccines ( 1 - Tdap) 1983 Zoster Vaccines (1 of 2) 2014 COVID-19 Vaccine (2023-2 5 season) 2023 Influenza Adult (#1) 2024 RSV Immunization or 60+ Years (1 - 1-dose 75+ series) 2039 Meningococcal B Vaccine Aged Out No l onger eligible based on patient's age to complete this topic Meningococcal Vaccine Aged Out No sophia von eligible based on patient's age to complete this topic Pneumococcal Vaccine: Pediat rics (0 to 5 Years) and At-Risk Patients (6 to 64 Years) Aged Out No longer eligible b ased on patient's age to complete this topic RSV Immunizations Under 20 Months Aged Out No longer eligible based on patient's age to complete this topic
--- OUTSIDE RECORDS SUMMARY | 2024-06-24 13:52 | XMS_ITS ---
Author Organization [facility] Healthcare Address [address] [place] [address] Care Team Providers Care [employer] Name Role Phone Young Guaman MD Unavailable [phone] Jahaira Avendano MD Unavailable Dana Haynes NP Primary Care Provider [phone] Active Problems Problem Noted Date Diagnosed Date Draining postoperative wound 04/29/2024 Mediastinitis 04/24/2024 CAD, multiple vessel 04/13/2024 Gastroesophageal reflux disease without esophagi tis 04/13/2024 Primary hypertension 04/13/2024 Hypercholesterolemia 04/13/2024 Moderate protein-calorie malnutrition 07/06/2023 Abscess of upper lobe of left lung with pneumoni a 07/04/2023 Empyema 07/03/2023 Multifocal pneumonia 07/02/2023 Prostate cancer 09/09/2017 Tobacco use disorder 09/08/2017 Current Treatment and Therapy Plans No current plan information found. Past Treatment and Therapy Plans No past plan information found. Lifetime Dose Tracking * Chemical Lifetime Dose Automatic Entry Manual Entr y Fluoro Time 0.4 minutes 0.4 minutes 0 minutes Air kerma at the reference point (Ka,r) 3.4 mGy 3 .4 mGy 0 mGy
--- OUTSIDE RECORDS SUMMARY | 2024-06-24 13:53 | XMS_ITS | Clinical Summary ---
Author Organization [facility] Healthcare Address [address] [place] [address] Care Team Providers Care R Programmer Name Role Phone Young Guaman MD Unavailable [phone] Jahaira Avendano MD Unavailable Dana Haynes NP Primary Care Provider [phone] Allergies Active Allergy Reactions Criticality Noted Date Comments Oxycodone Rash Medium Oxycodone Hld-Knzalyore-Krf Rash Medium 08/23/2017 Penicillins Unknown 08/23/2017 Childhood reaction Has tolerated PCN as an adult Tetracyclines Diarrhea,Vomiting Low 08/23/2017 Medications nortriptyline (PAMELOR) 50 mg capsuleIndicat ions:abdominal discomfort Take 1 capsule (50 mg total) by mouth nightly Active montelukast (SINGULAIR) 10 mg tabletIndicati ons:Allergic Rhinitis Take 1 tablet (10 mg total) by mouth patternmaker helper before breakfast Active gabapentin (NEURONTIN) 300 mg capsuleIndicat ions:pain Take 2 capsules (600 mg total) by mouth nightly Active famotidine (PEPCID) 40 mg tabletIndicati ons:reflux Take 1 tablet (40 mg total) by mouth daily 0 Active fluticasone propionate (FLONASE) 50 mcg/actuation nasal sprayIndicatio ns:Allergic Rhinitis Administer 1 spray into each nostril 2 (two) times a day as needed for rhinitis 3 Active acetaminophen 500 mg capsuleIndicat ions:Fever,mil d pain Take 1 capsule (500 mg total) by mouth every 6 (six) hours as needed for pain 5 Active aspirin 325 mg tabletIndicati ons:prevention of thrombosis Take 1 tablet (325 mg total) by mouth daily 30 tablet 11 5 04/21/19 26 Active carvediloL (COREG) 12.5 mg tabletIndicati ons:hypertensi on Take 1 tablet (12.5 mg total) by mouth 2 (two) times a day with meals 60 tablet 1 5 Active ferrous sulfate 325 mg (65 mg of elemental iron) tabletIndicati ons:Iron Deficiency Anemia Take 1 tablet (325 mg total) by mouth 3 (three) times a day with meals 90 tablet 2 5 Active pr-xwq-okvjp-K 2-sljutkc-hdpr in [id number] mcg tabletIndicati ons:supplement Take 1 tablet by mouth daily. over the counter med Indications: supplement Active hydrOXYzine (ATARAX) 25 mg tabletIndicati ons:anxiety Take 1 tablet (25 mg total) by mouth every 8 (eight) hours as needed for anxiety 30 tablet 5 Active rosuvastatin (CRESTOR) 20 mg tabletIndicati ons:hyperlipid emia Take 1 tablet (20 mg total) by mouth nightly 30 tablet 1 5 Active HYDROcodone-ac etaminophen (NORCO) 5-325 mg per tabletIndicati ons:Pain,moder ate pain Take 1 tablet by mouth every 6 (six) hours as needed for pain 40 tablet 5 Active escitalopram (LEXAPRO) 10 mg tabletIndicati ons:major depressive disorder Take 10 mg by mouth daily. RX#[id number] by Dr Pipe Vivar Indications: major depressive disorder Active aspirin 325 mg enteric coated tablet Take 1 tablet (325 mg total) by mouth daily 5 06/01/19 25 Discontinu ed(Patient Reported) ferrous sulfate 325 mg (65 mg of elemental iron) tablet Take 1 tablet (65 mg of elemental iron total) by mouth 3 (three) times a day with meals 5 06/01/19 25 Discontinu ed(Patient Reported) Active Problems Problem Noted Date Diagnosed Date Draining postoperative wound 04/29/2024 Mediastinitis 04/24/2024 CAD, multiple vessel 04/13/2024 Gastroesophageal reflux disease without esophagi tis 04/13/2024 Primary hypertension 04/13/2024 Hypercholesterolemia 04/13/2024 Moderate protein-calorie malnutrition 07/06/2023 Abscess of upper lobe of left lung with pneumoni a 07/04/2023 Empyema 07/03/2023 Multifocal pneumonia 07/02/2023 Prostate cancer 09/09/2017 Tobacco use disorder 09/08/2017 Encounters Date Type Department Care Team Description 06/15/2024 Telephone [facility] Cardiology [address] [place] [address] [place] [phone] Anuel Kendall MD 06/03/2024 9:57 AM ORTHOPEDIC PHYSICIAN - 06/03/2024 11:59 PM ORTHOPEDIC PHYSICIAN [place] [address] Discharge Disposition: Discharge to home or self care 06/03/2024 9:00 AM ORTHOPEDIC PHYSICIAN Home Care Visit [address] [place] [address] Kyung Flynn RN SN NON OASIS DISCHARGE 06/01/2024 11:15 AM ORTHOPEDIC PHYSICIAN Office Visit [place] [address] [place] [phone] Anuel Kendall MD Hx of CABG (Primary Dx); Hypercholesterolemia ; CAD, multiple vessel 05/31/2024 Telephone [place] [address] [place] [phone] Anuel Kendall MD Cardiac Rehab 05/27/2024 9:00 AM ORTHOPEDIC PHYSICIAN Home Care Visit [address] [place] [address] Kyung Flynn, HUMZA SN HOME VISIT 05/19/2024 2:00 PM ORTHOPEDIC PHYSICIAN Home Care Visit [address] [place] [address] Kyung Flynn, HUMZA SN HOME VISIT 05/18/2024 10:45 AM ORTHOPEDIC PHYSICIAN Office Visit Cardiovascular and Thoracic Surgery [address] [place] [address] [address], [place] [address] Jaime Colin MD Aftercare following surgery of the circulatory system (Primary Dx) 05/18/2024 Telephone [facility] [place] [address] [facility] [address] [place] [address] Bebo Vallecillo EP-C CRN Follow Up 05/14/2024 Orders Only [facility]ovascular [facility] Thor[facility] Surgery [address] [place] [address] [address], [place] [phone] Melissa Erickson NP Acute post-operative pain (Primary Dx) 05/14/2024 Telephone [facility]ovascular [facility] Thoracic Surgery [address] [place] [phone] Jaime Colin MD Med Refill 05/13/2024 3:00 PM ORTHOPEDIC PHYSICIAN Home Care Visit [address] [place] [address] Kyung Flynn RN SN HOME VISIT 05/11/2024 8:45 AM ORTHOPEDIC PHYSICIAN Office Visit [facility] [address] [place] [phone] Jaime Colin MD Aftercare following surgery of the circulatory system (Primary Dx) 05/11/2024 Telephone [facility] Thoracic Surgery [address] [place] [phone] Nahed Crabtree 05/07/2024 Telephone Cardiovascular and Thoracic Surgery [address] [place] [phone] Jaime Colin MD cough 05/04/2024 2:00 PM ORTHOPEDIC PHYSICIAN Home Care Visit [address] [place] [address] Kyung Flynn RN SN HOME VISIT 05/03/2024 Telephone Cardiovascular and Thoracic Surgery [address] [place] [phone] Davy Rios RN Wound question 05/01/2024 8:40 AM ORTHOPEDIC PHYSICIAN - 05/01/2024 11:59 PM ORTHOPEDIC PHYSICIAN Hospital Encounter [facility] [address] [place] [address] Discharge Disposition: Discharge to home or self care 05/01/2024 8:00 AM ORTHOPEDIC PHYSICIAN Home Care Visit [place] [address] [address] [place] [address] Jessica Mixon RN SN NON OASIS RESUMPTION OF CARE 05/01/2024 Home Care Visit [place] [address] [address] [place] [address] Leann Khoury RN SN TRIAGE ENCOUNTER 04/30/2024 Telephone Cardiovascular and Thoracic Surgery [address] [facility] [address] [place] [phone] Davy Rios RN Wound photo 04/29/2024 Orders Only [facility] Home Care Services [address] [place] [address] Be Brambila [facility] 04/26/2024 9:00 AM ORTHOPEDIC PHYSICIAN - 04/26/2024 11:00 AM ORTHOPEDIC PHYSICIAN Surgery [facility] Operating Room [address] [place] [phone] Jaime Colin MD DELAYED DERMAL CLOSURE, WOUND VAC PLACEMENT 04/26/2024 7:49 AM ORTHOPEDIC PHYSICIAN Anesthesia Event [facility] Operating Room [address] [place] [phone] Tommie Masters MD 04/26/2024 Home Care Visit [place] [address] [address] [place] [address] Risa Mcdaniel RN SN TRIAGE ENCOUNTER 04/24/2024 5:55 PM ORTHOPEDIC PHYSICIAN Anesthesia Event [facility] Operating Room [address] [place] [phone] Tommie Masters MD 04/24/2024 5:15 PM ORTHOPEDIC PHYSICIAN - 04/24/2024 7:10 PM ORTHOPEDIC PHYSICIAN Surgery [facility] Operating Room [facility][note 3][address] [place] [address] Jaime Colin MD EXPLORATION MEDIASTINUM/WASHOUT, WOUND VAC PLACEMENT 04/24/2024 2:19 PM ORTHOPEDIC PHYSICIAN - 04/29/2024 4:25 PM ORTHOPEDIC PHYSICIAN Hospital Encounter [address] [phone] Rebekah Ivey MD Mauney, Michael Clark, MD Draining postoperative wound, initial encounter (Primary Dx); CAD, multiple vessel; Mediastinitis Discharge Disposition: Discharge to home, home health skilled care 04/24/2024 Home Care Visit [place] [address] [address] [place] [address] Kyung Flynn RN SN NON OASIS TRANSFER 04/24/2024 Documentation Cardiovascular [facility] Thoracic Surgery [address] [place] [phone] Melissa Erickson NP 04/23/2024 Telephone Cardiovascular and Thoracic Surgery [address] [place] [phone] Davy Rios RN Wound status 04/23/2024 Orders Only [facility]ovascular [facility] Thoracic Surgery [address] [place] [phone] Jaime Colin MD 2024 2:30 PM ORTHOPEDIC PHYSICIAN Home Care Visit [place] [address] [address] [place] [address] Kyung Flynn RN SN OASIS START OF CARE 2024 Plan of Care Documentation [place] [address] [address] [place] [address] 2024 Telephone [facility]ovascular and Thoracic Surgery [address] [place] [address] [address], [place] [address] Davy Rios, java lead engineer assessment 04/21/2024 Telephone Cardiovascular and Thoracic Surgery [address] [facility] [address] [place] [address] Jaime Colin MD Post-op Problem 04/15/2024 12:30 PM ORTHOPEDIC PHYSICIAN - 04/15/2024 6:50 PM ORTHOPEDIC PHYSICIAN Surgery [facility] Operating Room [address] [place] [phone] Jaime Colin MD CORONARY ARTERY BYPASS GRAFTS 04/15/2024 9:59 AM ORTHOPEDIC PHYSICIAN Anesthesia Event [facility] Operating Room [address] [place] [phone] Leodan Beatty MD Curdt, Nicholas Christopher, CLIP BOLTER AND WRAPPER 04/15/2024 8:05 AM ORTHOPEDIC PHYSICIAN Ancillary Procedure [facility] Operating Room [address] [place] [phone] 04/14/2024 Orders Only [facility] Medical Group Cardiology [address] [place] [address] Anuel Kendall MD 04/13/2024 9:41 AM ORTHOPEDIC PHYSICIAN - 04/21/2024 10:54 AM ORTHOPEDIC PHYSICIAN Hospital Encounter [address] [phone] John Solitario DO Yew, Seow Voon, MD Dehaan, MD Elzbieta Ortiz Rahul S., MD Mauney, Michael Clark, MD CAD, multiple vessel (Primary Dx); S/P CABG x 4 Discharge Disposition: Discharge to home, home health skilled care 04/12/[address] [phone] Alivia [place], HUMZA 04/12/2024 Orders Only [address] [phone] John Solitario DO from Last 3 Months Surgical History Surgery Date Site/Laterality Comments AZ CHOLECYSTECTOMY Cholecystectomy - (Added by TW Conv) CHOLECYSTECTOMY 04/07/2012 - 04/06/2013 PARTIAL NEPHRECTOMY 04/07/2012 - 04/06/2013 Left ORIF WRIST FRACTURE 04/07/2000 - 04/06/2001 Left SHOULDER ARTHROSCOPY 04/07/2010 - 04/06/2011 Left PROSTATE BIOPSY 04/07/2017 - 04/06/2018 CARPAL TUNNEL RELEASE 04/07/1999 - 04/06/2000 Left PROSTATE SURGERY SHOULDER SURGERY LEFT AND RIGHT CORONARY ARTERY BYPASS GRAFT 04/15/2024 CABG x 4, NEELY to LAD, ANÍBAL to RCA, SVG to Ramus, SVG to OM2 Medical History Medical History Date Comments HTN (hypertension) GERD (gastroesophageal reflux disease) Renal cancer (HCC) left 2012 Prostate cancer (HCC) dx 2018 PONV (postoperative nausea and vomiting) Arthritis Hiatal hernia Gallstones FH: kidney cancer Abdominal pain High blood pressure Hearing decreased, bilateral MIMA ATERAL HEARING AIDS Head injury 05/25/2020 Crush injury, wrist, left, sequela 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 Family History Medical History Relation Name Comments Heart failure Maternal Grandfather Heart failure Maternal Grandmother Stroke Maternal Grandmother Heart disease Mother Heart failure Mother Ovarian cancer Mother's Sister Ovarian Ca ncer - (Added by [employer] Conv) Heart disease Other 1 Heart Disease - (Added by [employer] Conv) Diabetes Other 2 Diabetes Mellit - (Added by [employer] Conv) Relation Name Status Comments Maternal Grandfather Maternal Grandmother Mother (Age 57) Mother's Sister Other 1 Other 2 Social History Tobacco Use Types Packs/Day Years Used Date Smoking Tobacco: Former Cigarettes 1 42 Smokeless Tobacco: Current Chew Tobacco Cessation:Ready to Q uit: Not Asked; Counseling Given: Not Answered Alcohol Use Standard Drinks/Week Comments Yes 2 (1 standard drink = 0.6 oz pur e alcohol) OASIS D0700: Social Isolation Answer Da te Recorded Frequency of experiencing loneliness or isolatio n Never 2024 OASIS A1250: Transportation Answer Date Recorded Lack of Transportation (Medical) No 2024 Lack of Transportation (Non-Medical) No 2024 Patient Unable or Declines to Respond No 2024 OASIS B1300: Health Literacy Answer Sandro e Recorded Frequency of needing help to read materials from doctor or pharmacy Never 2024 C Utilities Answer Date Recorded In the past 12 months has th e [employer], gas, oil, or water company threatened to shut off services in your home? No 04/28/2024 Social Connection and Isolat ion Panel [NHANES] Answer Date Recorded In a typical week, how many times do you talk on the phone with family, friends, or neighbors? More than three times a week 04/28/2024 How often do you get togethe r with friends or relatives? More than three times a week 04/28/2024 How often do you attend chur ch or restorationism services? Never 04/28/2024 Do you belong to any clubs o r organizations such as confucianist groups, unions, fraternal or athletic groups, or school groups? Yes 04/28/2024 How often do you attend meet ings of the clubs or organizations you belong to? More than 4 times per year 04/28/2024 Are you , , di vorced, , never , or living with a partner? 04/28/2024 AUDIT-C Answer Date Recorded Q1: How often do you have a drink containing alc ohol? 2-4 times a month 04/15/2024 Q2: How many drinks containi ng alcohol do you have on a typical day when you are drinking? 3 or 4 04/15/2024 Q3: How often do you have si x or more drinks on one occasion? Less than monthly 04/15/2024 Overall Financial Resource Strain (CARDIA) Answe r Date Recorded How hard is it for you to pa y for the very basics like food, housing, medical care, and heating? Not hard at all 04/28/2024 PHQ-2 Answer Date Recorded PHQ-2 Total Score (If total score is 3 or more points, staff should administer the PHQ-9) 0 04/25/2024 Hunger Vital Sign Answer Date Recorded Within the past 12 months, y ou worried that your food would run out before you got the money to buy more. Never true 04/28/19 25 Within the past 12 months, t he food you bought just didn't last and you didn't have money to get more. Never true 04/28/2024 PRAPARE - Transportation Answer Date Re corded In the past 12 months, has l ack of transportation kept you from medical appointments or from getting medications? No 04/08 In the past 12 months, has l ack of transportation kept you from meetings, work, or from getting things needed for daily living? No 04/28/2024 Housing Stability Vital Sign Answer Sandro e Recorded In the last 12 months, was t here a time when you were not able to pay the mortgage or rent on time? No 07/03/2023 In the last 12 months, how many places have you lived? 1 07/03/2023 In the last 12 months, was t here a time when you did not have a steady place to sleep or slept in a mcc (including now)? No 07/03/2023 PHQ-9 Answer Date Recorded PHQ-9 Total Score 1 04/25/2024 Housing Stability Vital Sign Answer Sandro e Recorded In the last 12 months, was t here a time when you were not able to pay the mortgage or rent on time? No 04/28/2024 In the past 12 months, how m any times have you moved where you were living? 0 04/28/2024 At any time in the past 12 m [facility], were you homeless or living in a mcc (including now)? No 04/28/2024 Personal Safety Answer Date Recorded Have you ever been in or are you currently in a harmful physical or emotional relationship or is someone making you feel afraid or unsafe? Denies 04/25/2024 Sex and Gender Information Value Date Recorded Sex Assigned at Not on file Legal Sex Male 2:15 AM ORTHOPEDIC PHYSICIAN Gender Identity Male 05/24/2020 10:47 AM ORTHOPEDIC PHYSICIAN Sexual Orientation Straight 05/24/2020 10 :47 AM ORTHOPEDIC PHYSICIAN Obstetrics History Last Filed Vital Signs Vital Sign Reading Time Taken Comments Blood Pressure 152/72 06/03/2024 9:48 AM ORTHOPEDIC PHYSICIAN Pulse 73 06/03/2024 9:48 AM ORTHOPEDIC PHYSICIAN Temperature 36.3 C (97.4 F) 06/03/2024 9:48 AM ORTHOPEDIC PHYSICIAN Respiratory Rate 18 06/03/2024 9:48 AM ORTHOPEDIC PHYSICIAN Oxygen Saturation 98% 06/03/2024 9:48 AM ORTHOPEDIC PHYSICIAN Inhaled Oxygen Concentration - - Weight 103 kg (227 lb) 06/03/2024 9:48 AM ORTHOPEDIC PHYSICIAN Height 175.3 cm (5' 9 ) 06/01/2024 12:15 PM ORTHOPEDIC PHYSICIAN Body Mass Index 33.52 06/01/2024 12:15 PM ORTHOPEDIC PHYSICIAN Plan of Treatment Health Maintenance Due Date Last Done Comments Colon Cancer Screening-Colonoscopy 1964 Hepatitis C Screening 1964 Hepatitis B Screening 1982 Regular Well Visit/Exam 18-64 1982 Pneumococcal vaccine <65 (1 of 2 - PCV) 1983 Zoster Vaccine (1 of 2) 2014 Prostate Cancer Screening-PSA 10/10/2019 10/09/2017, 03/05/2017 Influenza Vaccine (#1) 2023 Depression Screening 04/24/2025 04/24/2024, 04/24/19 25 DTaP/Tdap/Td Vaccine (2 - Td or Tdap) 11/20/2028 Medical Devices Implanted Type Area Bioanalyst Device Identifier Shelf Expiration Date Model / Serial / Lot Other - See Comments Other - see comments Left: Arm Description:Metal teresa Procedures Procedure Name Priority Date/Time Associated Diagnosis Comments HEMOGLOBIN A1C Routine 06/03/2024 9:57 AM ORTHOPEDIC PHYSICIAN IRON PROFILE W/ IBC Routine 06/03/2024 9 :57 AM ORTHOPEDIC PHYSICIAN FERRITIN Routine 06/03/2024 9:57 AM ORTHOPEDIC PHYSICIAN POCT LIPID PANEL Routine 06/01/2024 12:08 AM ORTHOPEDIC PHYSICIAN Hx of CABG Hypercholesterolemi a CAD, multiple vessel EGFR STAT 05/01/2024 8:40 AM ORTHOPEDIC PHYSICIAN DIFFERENTIAL AUTO STAT 05/01/2024 8:4 0 AM ORTHOPEDIC PHYSICIAN VANCOMYCIN LEVEL TROUGH STAT 05/01/2024 8:40 AM ORTHOPEDIC PHYSICIAN CBC WITH AUTO DIFFERENTIAL STAT 05/01/2024 8:40 AM ORTHOPEDIC PHYSICIAN COMPREHENSIVE METABOLIC PANEL STAT 05/01/2024 8:40 AM ORTHOPEDIC PHYSICIAN XR CHEST 1 VIEW ED Urgent/IP Urgent 04/29/2024 2:57 PM ORTHOPEDIC PHYSICIAN XR CHEST 1 VIEW ED Urgent/IP Urgent 04/29/2024 2:04 PM ORTHOPEDIC PHYSICIAN AZ INSJ NON-TUNNELED CENTRAL VENOUS CATH AGE 5 YR/> Routine 04/29/2024 11:39 AM ORTHOPEDIC PHYSICIAN Draining postoperative wound, initial encounter HEMOGLOBIN AND HEMATOCRIT STAT 04/29/2024 7:48 AM ORTHOPEDIC PHYSICIAN XR CHEST 1 VIEW IP Routine 04/29/2024 5:42 AM ORTHOPEDIC PHYSICIAN EGFR Routine 04/29/2024 12:38 AM ORTHOPEDIC PHYSICIAN MAGNESIUM Routine 04/29/2024 12:38 AM ORTHOPEDIC PHYSICIAN RENAL FUNCTION PANEL Routine 04/29/2024 12:38 AM ORTHOPEDIC PHYSICIAN CBC WITHOUT DIFFERENTIAL Routine 04/29/2024 12:38 AM ORTHOPEDIC PHYSICIAN HEMOGLOBIN AND HEMATOCRIT Timed 04/28/2024 12:33 PM ORTHOPEDIC PHYSICIAN XR CHEST 1 VIEW IP Routine 04/28/2024 6:50 AM ORTHOPEDIC PHYSICIAN EGFR Routine 04/28/2024 12:33 AM ORTHOPEDIC PHYSICIAN MAGNESIUM Routine 04/28/2024 12:33 AM ORTHOPEDIC PHYSICIAN RENAL FUNCTION PANEL Routine 04/28/2024 12:33 AM ORTHOPEDIC PHYSICIAN CBC WITHOUT DIFFERENTIAL Routine 04/28/2024 12:33 AM ORTHOPEDIC PHYSICIAN POCT GLUCOSE DEVICE Routine 04/27/2024 8 :10 PM ORTHOPEDIC PHYSICIAN XR CHEST 1 VIEW ED Urgent/IP Urgent 04/27/2024 12:24 PM ORTHOPEDIC PHYSICIAN POCT GLUCOSE DEVICE Routine 04/27/2024 7 :56 AM ORTHOPEDIC PHYSICIAN XR CHEST 1 VIEW IP Routine 04/27/2024 6:44 AM ORTHOPEDIC PHYSICIAN RENAL FUNCTION PANEL Timed 04/27/2024 12:47 AM ORTHOPEDIC PHYSICIAN EGFR Timed 04/27/2024 12:47 AM ORTHOPEDIC PHYSICIAN MAGNESIUM Timed 04/27/2024 12:47 AM ORTHOPEDIC PHYSICIAN VANCOMYCIN LEVEL TROUGH Timed 04/27/2024 12:47 AM ORTHOPEDIC PHYSICIAN CBC WITHOUT DIFFERENTIAL Routine 04/27/2024 12:46 AM ORTHOPEDIC PHYSICIAN POCT GLUCOSE DEVICE Routine 04/26/2024 8 :17 PM ORTHOPEDIC PHYSICIAN AZ AN PROCEDURE PLACEHOLDER Routine 04/26/2024 8:33 AM ORTHOPEDIC PHYSICIAN AZ AN PROCEDURE PLACEHOLDER Routine 04/26/2024 8:33 AM ORTHOPEDIC PHYSICIAN AZ AN ELECTIVE ENDOTRACHEAL AIRWAY Routine 04/26/2024 8:33 AM ORTHOPEDIC PHYSICIAN MYCOLOGY (FUNGAL) CULTURE STAT 04/26/2024 8:29 AM ORTHOPEDIC PHYSICIAN AEROBIC AND ANAEROBIC CULTURE AND GRAM STAIN STAT 04/26/2024 8:29 AM ORTHOPEDIC PHYSICIAN PREPARE RBC STAT 04/26/2024 8:01 AM ORTHOPEDIC PHYSICIAN EXPLORATION MEDIASTINUM 04/26/2024 7:50 AM ORTHOPEDIC PHYSICIAN pain TRANSFUSE RED BLOOD CELLS Timed 04/26/2024 7:39 AM ORTHOPEDIC PHYSICIAN CRITICAL CARE Routine 04/26/2024 7:14 AM ORTHOPEDIC PHYSICIAN Draining postoperative wound, initial encounter XR CHEST 1 VIEW IP Routine 04/26/2024 6:30 AM ORTHOPEDIC PHYSICIAN PREPARE RBC STAT 04/26/2024 5:30 AM ORTHOPEDIC PHYSICIAN HEMOGLOBIN AND HEMATOCRIT Timed 04/26/2024 4:53 AM ORTHOPEDIC PHYSICIAN EGFR Routine 04/26/2024 1:34 AM ORTHOPEDIC PHYSICIAN MAGNESIUM Routine 04/26/2024 1:34 AM ORTHOPEDIC PHYSICIAN CALCIUM, IONIZED Routine 04/26/2024 1:34 AM ORTHOPEDIC PHYSICIAN RENAL FUNCTION PANEL Routine 04/26/2024 1:34 AM ORTHOPEDIC PHYSICIAN CBC WITHOUT DIFFERENTIAL Routine 04/26/2024 1:34 AM ORTHOPEDIC PHYSICIAN POTASSIUM LEVEL STAT 04/26/2024 1:34 AM ORTHOPEDIC PHYSICIAN CRITICAL CARE Routine 04/25/2024 6:37 PM ORTHOPEDIC PHYSICIAN CAD, multiple vessel POCT GLUCOSE DEVICE Routine 04/25/2024 8 :16 AM ORTHOPEDIC PHYSICIAN XR CHEST 1 VIEW IP Routine 04/25/2024 6:50 AM ORTHOPEDIC PHYSICIAN CRITICAL CARE Routine 04/25/2024 6:48 AM ORTHOPEDIC PHYSICIAN Draining postoperative wound, initial encounter EGFR Routine 04/25/2024 6:28 AM ORTHOPEDIC PHYSICIAN MAGNESIUM Routine 04/25/2024 6:28 AM ORTHOPEDIC PHYSICIAN CALCIUM, IONIZED Routine 04/25/2024 6:28 AM ORTHOPEDIC PHYSICIAN RENAL FUNCTION PANEL Routine 04/25/2024 6:28 AM ORTHOPEDIC PHYSICIAN CBC WITHOUT DIFFERENTIAL Routine 04/25/2024 6:28 AM ORTHOPEDIC PHYSICIAN CRITICAL CARE Routine 04/24/2024 10:07 PM ORTHOPEDIC PHYSICIAN EGFR STAT 04/24/2024 10:07 PM ORTHOPEDIC PHYSICIAN APTT STAT 04/24/2024 10:07 PM ORTHOPEDIC PHYSICIAN PROTIME-INR STAT 04/24/2024 10:07 PM ORTHOPEDIC PHYSICIAN CBC WITHOUT DIFFERENTIAL STAT 04/24/2024 10:07 PM ORTHOPEDIC PHYSICIAN CALCIUM, IONIZED STAT 04/24/2024 10:07 PM ORTHOPEDIC PHYSICIAN MAGNESIUM STAT 04/24/2024 10:07 PM ORTHOPEDIC PHYSICIAN BASIC METABOLIC PANEL STAT 04/24/2024 10:07 PM ORTHOPEDIC PHYSICIAN PHOSPHORUS STAT 04/24/2024 10:07 PM ORTHOPEDIC PHYSICIAN MYCOLOGY (FUNGAL) CULTURE STAT 04/24/2024 8:51 PM ORTHOPEDIC PHYSICIAN MYCOBACTERIOLOGY AFB CULTURE AND ACID-FAST STAIN Routine 04/24/2024 8:51 PM ORTHOPEDIC PHYSICIAN AEROBIC AND ANAEROBIC CULTURE AND GRAM STAIN STAT 04/24/2024 8:51 PM ORTHOPEDIC PHYSICIAN XR CHEST 1 VIEW ED Urgent/IP Urgent 04/24/2024 8:22 PM ORTHOPEDIC PHYSICIAN AZ AN PROCEDURE PLACEHOLDER Routine 04/24/2024 6:30 PM ORTHOPEDIC PHYSICIAN AZ AN PROCEDURE PLACEHOLDER Routine 04/24/2024 6:28 PM ORTHOPEDIC PHYSICIAN AZ AN ELECTIVE ENDOTRACHEAL AIRWAY Routine 04/24/2024 6:28 PM ORTHOPEDIC PHYSICIAN EXPLORATION MEDIASTINUM 04/24/2024 5:56 PM ORTHOPEDIC PHYSICIAN CARDIO EGFR STAT 04/24/2024 4:58 PM ORTHOPEDIC PHYSICIAN DIFFERENTIAL AUTO STAT 04/24/2024 4:5 8 PM ORTHOPEDIC PHYSICIAN TYPE AND SCREEN STAT 04/24/2024 4:58 PM ORTHOPEDIC PHYSICIAN HEPATIC FUNCTION PANEL STAT 4:58 PM ORTHOPEDIC PHYSICIAN CBC WITH AUTO DIFFERENTIAL STAT 04/24/2024 4:58 PM ORTHOPEDIC PHYSICIAN BASIC METABOLIC PANEL STAT 04/24/2024 4:58 PM ORTHOPEDIC PHYSICIAN XR CHEST 1 VIEW ED 04/24/2024 4:56 PM ORTHOPEDIC PHYSICIAN PREPARE RBC STAT 04/24/2024 4:52 PM ORTHOPEDIC PHYSICIAN XR CHEST 1 VIEW IP Routine 04/21/2024 6:06 AM ORTHOPEDIC PHYSICIAN EGFR Routine 04/21/2024 3:36 AM ORTHOPEDIC PHYSICIAN MAGNESIUM Routine 04/21/2024 3:36 AM ORTHOPEDIC PHYSICIAN RENAL FUNCTION PANEL Routine 04/21/2024 3:36 AM ORTHOPEDIC PHYSICIAN CBC WITHOUT DIFFERENTIAL Routine 04/21/2024 3:36 AM ORTHOPEDIC PHYSICIAN PEP THERAPY Routine 04/20/2024 8:01 AM ORTHOPEDIC PHYSICIAN XR CHEST 1 VIEW IP Routine 04/20/2024 5:59 AM ORTHOPEDIC PHYSICIAN EGFR Routine 04/20/2024 4:40 AM ORTHOPEDIC PHYSICIAN MAGNESIUM Routine 04/20/2024 4:40 AM ORTHOPEDIC PHYSICIAN RENAL FUNCTION PANEL Routine 04/20/2024 4:40 AM ORTHOPEDIC PHYSICIAN CBC WITHOUT DIFFERENTIAL Routine 04/20/2024 4:40 AM ORTHOPEDIC PHYSICIAN XR CHEST 1 VIEW IP Routine 04/19/2024 5:58 AM ORTHOPEDIC PHYSICIAN EGFR Routine 04/19/2024 12:27 AM ORTHOPEDIC PHYSICIAN MAGNESIUM Routine 04/19/2024 12:27 AM ORTHOPEDIC PHYSICIAN RENAL FUNCTION PANEL Routine 04/19/2024 12:27 AM ORTHOPEDIC PHYSICIAN CBC WITHOUT DIFFERENTIAL Routine 04/19/2024 12:27 AM ORTHOPEDIC PHYSICIAN TYPE AND SCREEN Timed 04/19/2024 12:27 AM ORTHOPEDIC PHYSICIAN POCT GLUCOSE DEVICE Routine 04/18/2024 7 :49 PM ORTHOPEDIC PHYSICIAN POCT GLUCOSE DEVICE Routine 04/18/2024 4 :44 PM ORTHOPEDIC PHYSICIAN POCT GLUCOSE DEVICE Routine 04/18/2024 12:11 PM ORTHOPEDIC PHYSICIAN XR CHEST 1 VIEW IP Routine 04/18/2024 6:20 AM ORTHOPEDIC PHYSICIAN POCT GLUCOSE DEVICE Routine 04/18/2024 5 :55 AM ORTHOPEDIC PHYSICIAN POCT GLUCOSE DEVICE Routine 04/18/2024 3 :11 AM ORTHOPEDIC PHYSICIAN IRON PROFILE W/ IBC Routine 04/18/2024 1 :22 AM ORTHOPEDIC PHYSICIAN EGFR Routine 04/18/2024 1:22 AM ORTHOPEDIC PHYSICIAN MAGNESIUM Routine 04/18/2024 1:22 AM ORTHOPEDIC PHYSICIAN CALCIUM, IONIZED Routine 04/18/2024 1:22 AM ORTHOPEDIC PHYSICIAN RENAL FUNCTION PANEL Routine 04/18/2024 1:22 AM ORTHOPEDIC PHYSICIAN CBC WITHOUT DIFFERENTIAL Routine 04/18/2024 1:22 AM ORTHOPEDIC PHYSICIAN POCT GLUCOSE DEVICE Routine 04/18/2024 1 :17 AM ORTHOPEDIC PHYSICIAN POCT GLUCOSE DEVICE Routine 04/17/2024 11:42 PM ORTHOPEDIC PHYSICIAN POCT GLUCOSE DEVICE Routine 04/17/2024 9 :38 PM ORTHOPEDIC PHYSICIAN POCT GLUCOSE DEVICE Routine 04/17/2024 7 :49 PM ORTHOPEDIC PHYSICIAN HEMOGLOBIN AND HEMATOCRIT Timed 04/17/2024 5:48 PM ORTHOPEDIC PHYSICIAN POCT GLUCOSE DEVICE Routine 04/17/2024 5 :21 PM ORTHOPEDIC PHYSICIAN POCT GLUCOSE DEVICE Routine 04/17/2024 2 :26 PM ORTHOPEDIC PHYSICIAN TRANSFUSE RED BLOOD CELLS Timed 04/17/2024 2:02 PM ORTHOPEDIC PHYSICIAN POCT GLUCOSE DEVICE Routine 04/17/2024 12:06 PM ORTHOPEDIC PHYSICIAN PREPARE RBC STAT 04/17/2024 11:46 AM ORTHOPEDIC PHYSICIAN CBC WITHOUT DIFFERENTIAL Timed 04/17/2024 11:16 AM ORTHOPEDIC PHYSICIAN POCT GLUCOSE DEVICE Routine 04/17/2024 11:10 AM ORTHOPEDIC PHYSICIAN XR CHEST 1 VIEW ED Urgent/IP Urgent 04/17/2024 9:47 AM ORTHOPEDIC PHYSICIAN POCT GLUCOSE DEVICE Routine 04/17/2024 9 :33 AM ORTHOPEDIC PHYSICIAN POCT GLUCOSE DEVICE Routine 04/17/2024 8 :12 AM ORTHOPEDIC PHYSICIAN CRITICAL CARE Routine 04/17/2024 7:39 AM ORTHOPEDIC PHYSICIAN CAD, multiple vessel POCT GLUCOSE DEVICE Routine 04/17/2024 7 :12 AM ORTHOPEDIC PHYSICIAN XR CHEST 1 VIEW IP Routine 04/17/2024 6:10 AM ORTHOPEDIC PHYSICIAN POCT GLUCOSE DEVICE Routine 04/17/2024 6 :08 AM ORTHOPEDIC PHYSICIAN POCT GLUCOSE DEVICE Routine 04/17/2024 3 :18 AM ORTHOPEDIC PHYSICIAN BLOOD GAS, ARTERIAL Routine 04/17/2024 3 :08 AM ORTHOPEDIC PHYSICIAN HEMOGLOBIN AND HEMATOCRIT Routine 04/17/2024 3:08 AM ORTHOPEDIC PHYSICIAN POCT GLUCOSE DEVICE Routine 04/17/2024 2 :14 AM ORTHOPEDIC PHYSICIAN TRANSFUSE RED BLOOD CELLS Timed 04/17/2024 1:37 AM ORTHOPEDIC PHYSICIAN POCT GLUCOSE DEVICE Routine 04/17/2024 1 :05 AM ORTHOPEDIC PHYSICIAN EGFR Routine 04/17/2024 12:51 AM ORTHOPEDIC PHYSICIAN MAGNESIUM Routine 04/17/2024 12:51 AM ORTHOPEDIC PHYSICIAN CALCIUM, IONIZED Routine 04/17/2024 12:51 AM ORTHOPEDIC PHYSICIAN RENAL FUNCTION PANEL Routine 04/17/2024 12:51 AM ORTHOPEDIC PHYSICIAN CBC WITHOUT DIFFERENTIAL Routine 04/17/2024 12:51 AM ORTHOPEDIC PHYSICIAN POCT GLUCOSE DEVICE Routine 04/17/2024 12:17 AM ORTHOPEDIC PHYSICIAN POCT GLUCOSE DEVICE Routine 04/16/2024 11:06 PM ORTHOPEDIC PHYSICIAN POCT GLUCOSE DEVICE Routine 04/16/2024 10:07 PM ORTHOPEDIC PHYSICIAN XR CHEST 1 VIEW ED Urgent/IP Urgent 04/16/2024 9:15 PM ORTHOPEDIC PHYSICIAN OXYHEMOGLOBIN, CENTRAL VENOUS STAT 04/16/2024 9:14 PM ORTHOPEDIC PHYSICIAN POCT GLUCOSE DEVICE Routine 04/16/2024 8 :48 PM ORTHOPEDIC PHYSICIAN CRITICAL CARE Routine 04/16/2024 7:49 PM ORTHOPEDIC PHYSICIAN CAD, multiple vessel OXYHEMOGLOBIN, CENTRAL VENOUS STAT 04/16/2024 7:44 PM ORTHOPEDIC PHYSICIAN POCT GLUCOSE DEVICE Routine 04/16/2024 7 :27 PM ORTHOPEDIC PHYSICIAN POCT GLUCOSE DEVICE Routine 04/16/2024 6 :04 PM ORTHOPEDIC PHYSICIAN POCT GLUCOSE DEVICE Routine 04/16/2024 5 :23 PM ORTHOPEDIC PHYSICIAN POCT GLUCOSE DEVICE Routine 04/16/2024 3 :10 PM ORTHOPEDIC PHYSICIAN POCT GLUCOSE DEVICE Routine 04/16/2024 2 :27 PM ORTHOPEDIC PHYSICIAN BLOOD GAS, ARTERIAL STAT 04/16/2024 2 :24 PM ORTHOPEDIC PHYSICIAN EGFR STAT 04/16/2024 1:33 PM ORTHOPEDIC PHYSICIAN DIFFERENTIAL AUTO STAT 04/16/2024 1:3 3 PM ORTHOPEDIC PHYSICIAN RENAL FUNCTION PANEL STAT 04/16/2024 1:33 PM ORTHOPEDIC PHYSICIAN CBC WITH AUTO DIFFERENTIAL STAT 04/16/2024 1:33 PM ORTHOPEDIC PHYSICIAN POCT GLUCOSE DEVICE Routine 04/16/2024 1 :06 PM ORTHOPEDIC PHYSICIAN POCT GLUCOSE DEVICE Routine 04/16/2024 11:03 AM ORTHOPEDIC PHYSICIAN POCT GLUCOSE DEVICE Routine 04/16/2024 10:08 AM ORTHOPEDIC PHYSICIAN POCT GLUCOSE DEVICE Routine 04/16/2024 8 :50 AM ORTHOPEDIC PHYSICIAN LACTATE STAT 04/16/2024 8:44 AM ORTHOPEDIC PHYSICIAN BLOOD GAS, ARTERIAL STAT 04/16/2024 8 :44 AM ORTHOPEDIC PHYSICIAN FIBRINOGEN STAT 04/16/2024 8:44 AM ORTHOPEDIC PHYSICIAN APTT STAT 04/16/2024 8:44 AM ORTHOPEDIC PHYSICIAN PROTIME-INR STAT 04/16/2024 8:44 AM ORTHOPEDIC PHYSICIAN POCT GLUCOSE DEVICE Routine 04/16/2024 7 :07 AM ORTHOPEDIC PHYSICIAN CRITICAL CARE Routine 04/16/2024 6:28 AM ORTHOPEDIC PHYSICIAN CAD, multiple vessel POCT GLUCOSE DEVICE Routine 04/16/2024 5 :58 AM ORTHOPEDIC PHYSICIAN XR CHEST 1 VIEW IP Routine 04/16/2024 5:42 AM ORTHOPEDIC PHYSICIAN EXTUBATION Routine 04/16/2024 5:32 AM ORTHOPEDIC PHYSICIAN HEMOGLOBIN AND HEMATOCRIT Routine 04/16/2024 5:11 AM ORTHOPEDIC PHYSICIAN POTASSIUM LEVEL Routine 04/16/2024 5:11 AM ORTHOPEDIC PHYSICIAN BLOOD GAS, ARTERIAL Routine 04/16/2024 5 :11 AM ORTHOPEDIC PHYSICIAN POCT GLUCOSE DEVICE Routine 04/16/2024 4 :00 AM ORTHOPEDIC PHYSICIAN POCT GLUCOSE DEVICE Routine 04/16/2024 2 :07 AM ORTHOPEDIC PHYSICIAN POCT GLUCOSE DEVICE Routine 04/16/2024 1 :01 AM ORTHOPEDIC PHYSICIAN OXYHEMOGLOBIN, PULMONARY ARTERY Routine 04/16/2024 12:22 AM ORTHOPEDIC PHYSICIAN POCT GLUCOSE DEVICE Routine 04/16/2024 12:11 AM ORTHOPEDIC PHYSICIAN EGFR Routine 04/16/2024 12:07 AM ORTHOPEDIC PHYSICIAN LACTATE Routine 04/16/2024 12:07 AM ORTHOPEDIC PHYSICIAN MAGNESIUM Routine 04/16/2024 12:07 AM ORTHOPEDIC PHYSICIAN CALCIUM, IONIZED Routine 04/16/2024 12:07 AM ORTHOPEDIC PHYSICIAN RENAL FUNCTION PANEL Routine 04/16/2024 12:07 AM ORTHOPEDIC PHYSICIAN CBC WITHOUT DIFFERENTIAL Routine 04/16/2024 12:07 AM ORTHOPEDIC PHYSICIAN POCT GLUCOSE DEVICE Routine 04/15/2024 11:06 PM ORTHOPEDIC PHYSICIAN CRITICAL CARE Routine 04/15/2024 11:02 PM ORTHOPEDIC PHYSICIAN POCT GLUCOSE DEVICE Routine 04/15/2024 9 :53 PM ORTHOPEDIC PHYSICIAN POCT GLUCOSE DEVICE Routine 04/15/2024 8 :59 PM ORTHOPEDIC PHYSICIAN POCT GLUCOSE DEVICE Routine 04/15/2024 8 :04 PM ORTHOPEDIC PHYSICIAN XR CHEST 1 VIEW ED Urgent/IP Urgent 04/15/2024 7:09 PM ORTHOPEDIC PHYSICIAN EGFR Routine 04/15/2024 7:06 PM ORTHOPEDIC PHYSICIAN PHOSPHORUS Routine 04/15/2024 7:06 PM ORTHOPEDIC PHYSICIAN BILIRUBIN, DIRECT Routine 04/15/2024 7:0 6 PM ORTHOPEDIC PHYSICIAN COMPREHENSIVE METABOLIC PANEL Routine 04/15/2024 7:06 PM ORTHOPEDIC PHYSICIAN MAGNESIUM Routine 04/15/2024 7:06 PM ORTHOPEDIC PHYSICIAN FIBRINOGEN STAT 04/15/2024 6:46 PM ORTHOPEDIC PHYSICIAN LACTATE STAT 04/15/2024 6:46 PM ORTHOPEDIC PHYSICIAN APTT STAT 04/15/2024 6:46 PM ORTHOPEDIC PHYSICIAN PROTIME-INR STAT 04/15/2024 6:46 PM ORTHOPEDIC PHYSICIAN CBC WITHOUT DIFFERENTIAL STAT 04/15/2024 6:46 PM ORTHOPEDIC PHYSICIAN BLOOD GAS, ARTERIAL STAT 04/15/2024 6 :46 PM ORTHOPEDIC PHYSICIAN CALCIUM, IONIZED STAT 04/15/2024 6:46 PM ORTHOPEDIC PHYSICIAN POCT GLUCOSE DEVICE Routine 04/15/2024 6 :35 PM ORTHOPEDIC PHYSICIAN PROTIME-INR STAT 04/15/2024 5:40 PM ORTHOPEDIC PHYSICIAN FIBRINOGEN STAT 04/15/2024 5:40 PM ORTHOPEDIC PHYSICIAN CBC WITHOUT DIFFERENTIAL STAT 04/15/2024 5:40 PM ORTHOPEDIC PHYSICIAN APTT STAT 04/15/2024 5:40 PM ORTHOPEDIC PHYSICIAN POCT GLUCOSE DEVICE Routine 04/15/2024 5 :28 PM ORTHOPEDIC PHYSICIAN PREPARE RBC STAT 04/15/2024 5:28 PM ORTHOPEDIC PHYSICIAN POC BLOOD GAS AND CHEMISTRIES, ARTERIAL Routine 04/15/2024 5:16 PM ORTHOPEDIC PHYSICIAN POCT ACTIVATED CLOTTING TIME, HIGH RANGE Routine 04/15/2024 5:16 PM ORTHOPEDIC PHYSICIAN POC BLOOD GAS AND CHEMISTRIES, ARTERIAL Routine 04/15/2024 4:47 PM ORTHOPEDIC PHYSICIAN POCT ACTIVATED CLOTTING TIME, HIGH RANGE Routine 04/15/2024 4:46 PM ORTHOPEDIC PHYSICIAN POC BLOOD GAS AND CHEMISTRIES, ARTERIAL Routine 04/15/2024 4:03 PM ORTHOPEDIC PHYSICIAN POCT ACTIVATED CLOTTING TIME, HIGH RANGE Routine 04/15/2024 4:02 PM ORTHOPEDIC PHYSICIAN POC BLOOD GAS AND CHEMISTRIES, ARTERIAL Routine 04/15/2024 3:31 PM ORTHOPEDIC PHYSICIAN POCT ACTIVATED CLOTTING TIME, HIGH RANGE Routine 04/15/2024 3:30 PM ORTHOPEDIC PHYSICIAN POC BLOOD GAS AND CHEMISTRIES, ARTERIAL Routine 04/15/2024 3:03 PM ORTHOPEDIC PHYSICIAN POCT ACTIVATED CLOTTING TIME, HIGH RANGE Routine 04/15/2024 3:02 PM ORTHOPEDIC PHYSICIAN POC BLOOD GAS AND CHEMISTRIES, ARTERIAL Routine 04/15/2024 2:27 PM ORTHOPEDIC PHYSICIAN POCT ACTIVATED CLOTTING TIME, HIGH RANGE Routine 04/15/2024 2:26 PM ORTHOPEDIC PHYSICIAN POC BLOOD GAS AND CHEMISTRIES, ARTERIAL Routine 04/15/2024 2:00 PM ORTHOPEDIC PHYSICIAN POCT ACTIVATED CLOTTING TIME, HIGH RANGE Routine 04/15/2024 1:59 PM ORTHOPEDIC PHYSICIAN POC BLOOD GAS AND CHEMISTRIES, VENOUS Routine 04/15/2024 1:41 PM ORTHOPEDIC PHYSICIAN POC BLOOD GAS AND CHEMISTRIES, ARTERIAL Routine 04/15/2024 1:33 PM ORTHOPEDIC PHYSICIAN POCT ACTIVATED CLOTTING TIME, HIGH RANGE Routine 04/15/2024 1:32 PM ORTHOPEDIC PHYSICIAN POC BLOOD GAS AND CHEMISTRIES, ARTERIAL Routine 04/15/2024 1:16 PM ORTHOPEDIC PHYSICIAN POCT ACTIVATED CLOTTING TIME, HIGH RANGE Routine 04/15/2024 1:15 PM ORTHOPEDIC PHYSICIAN AZ AN PROCEDURE PLACEHOLDER Routine 04/15/2024 11:57 AM ORTHOPEDIC PHYSICIAN AZ AN PROCEDURE PLACEHOLDER Routine 04/15/2024 10:46 AM ORTHOPEDIC PHYSICIAN AZ AN CENTRAL LINE QUADRUPLE LUMEN Routine 04/15/2024 10:46 AM ORTHOPEDIC PHYSICIAN AZ AN PROCEDURE PLACEHOLDER Routine 04/15/2024 10:45 AM ORTHOPEDIC PHYSICIAN ANESTHESIA CENTRAL VENOUS LINE PLACEMENT Routine 04/15/2024 10:45 AM ORTHOPEDIC PHYSICIAN ANESTHESIA CENTRAL VENOUS LINE PLACEMENT Routine 04/15/2024 10:45 AM ORTHOPEDIC PHYSICIAN AZ AN PROCEDURE PLACEHOLDER Routine 04/15/2024 10:45 AM ORTHOPEDIC PHYSICIAN AZ AN PROCEDURE PLACEHOLDER Routine 04/15/2024 10:42 AM ORTHOPEDIC PHYSICIAN AZ AN ELECTIVE ENDOTRACHEAL AIRWAY Routine 04/15/2024 10:42 AM ORTHOPEDIC PHYSICIAN POCT ACTIVATED CLOTTING TIME, HIGH RANGE Routine 04/15/2024 10:12 AM ORTHOPEDIC PHYSICIAN CORONARY ARTERY BYPASS GRAFT 04/15/2024 9:29 AM ORTHOPEDIC PHYSICIAN CAD, multiple vessel MARIUM ADD-ON FOR OR Routine 04/15/2024 8:0 4 AM ORTHOPEDIC PHYSICIAN EGFR Routine 04/15/2024 3:48 AM ORTHOPEDIC PHYSICIAN DIFFERENTIAL AUTO Routine 04/15/2024 3:4 8 AM ORTHOPEDIC PHYSICIAN APTT Routine 04/15/2024 3:48 AM ORTHOPEDIC PHYSICIAN CBC WITH AUTO DIFFERENTIAL Routine 04/15/2024 3:48 AM ORTHOPEDIC PHYSICIAN BASIC METABOLIC PANEL Routine 04/15/2024 3:48 AM ORTHOPEDIC PHYSICIAN ECG 12-LEAD Routine 04/14/2024 3:54 PM ORTHOPEDIC PHYSICIAN XR CHEST PA LATERAL 2 VIEWS IP Routine 04/14/2024 3:51 PM ORTHOPEDIC PHYSICIAN LIPID PANEL Routine 04/14/2024 3:22 PM ORTHOPEDIC PHYSICIAN HEMOGLOBIN A1C Routine 04/14/2024 3:22 PM ORTHOPEDIC PHYSICIAN TYPE AND SCREEN Timed 04/14/2024 3:22 PM ORTHOPEDIC PHYSICIAN PREPARE RBC STAT 04/14/2024 2:31 PM ORTHOPEDIC PHYSICIAN APTT Timed 04/14/2024 10:38 AM ORTHOPEDIC PHYSICIAN EGFR Routine 04/14/2024 4:35 AM ORTHOPEDIC PHYSICIAN DIFFERENTIAL AUTO Routine 04/14/2024 4:3 5 AM ORTHOPEDIC PHYSICIAN APTT Timed 04/14/2024 4:35 AM ORTHOPEDIC PHYSICIAN CBC WITH AUTO DIFFERENTIAL Routine 04/14/2024 4:35 AM ORTHOPEDIC PHYSICIAN BASIC METABOLIC PANEL Routine 04/14/2024 4:35 AM ORTHOPEDIC PHYSICIAN B CHECK SAMPLE STAT 04/14/2024 4:31 AM ORTHOPEDIC PHYSICIAN APTT Timed 04/13/2024 9:58 PM ORTHOPEDIC PHYSICIAN APTT STAT 04/13/2024 2:56 PM ORTHOPEDIC PHYSICIAN EGFR Routine 04/13/2024 2:56 PM ORTHOPEDIC PHYSICIAN PHOSPHORUS Routine 04/13/2024 2:56 PM ORTHOPEDIC PHYSICIAN MAGNESIUM Routine 04/13/2024 2:56 PM ORTHOPEDIC PHYSICIAN COMPREHENSIVE METABOLIC PANEL Routine 04/13/2024 2:56 PM ORTHOPEDIC PHYSICIAN CBC WITHOUT DIFFERENTIAL STAT 04/13/2024 2:56 PM ORTHOPEDIC PHYSICIAN PROTIME-INR STAT 04/13/2024 2:[address] BODY OUTSIDE REFERENCE Routine 04/13/2024 1:19 PM ORTHOPEDIC PHYSICIAN CARDIOLOGY DOCUMENT SCAN Routine 04/12/2024 10:01 AM ORTHOPEDIC PHYSICIAN PSA SCREEN Routine 10/09/2017 7:39 AM CDT from Last 3 Months or Most Recently Relevant to Health Maintenance Results * (ABNORMAL) Iron profile w/ IBC (06/03/2024 9:57 AM ORTHOPEDIC PHYSICIAN) Iron 58 50 - 150 mcg/dL TIBC 195(L) 250 - 400 mcg/dL [facility] Transferrin saturation 30 20 - 50 % [facility] Blood 06/03/2024 9:57 AM ORTHOPEDIC PHYSICIAN 06/03/2024 1:12 PM ORTHOPEDIC PHYSICIAN us Notinfile Unknown LAB BLOOD ORDERABLES Final Res ult [facility] Department [place] [address] * Hemoglobin A1c (06/03/2024 9:57 AM ORTHOPEDIC PHYSICIAN) Hgb A1C 4.8 4.0 - 5.6 % Estimated Average Glucose 91 mg/dL [facility] Comment: The ADA recommends reporting an estimated Average Glucose (eAG) with all Hemoglobin A1c results using the equation derived from a study of 507 normal and diabetic adults. Minority populations were underrepresented and children were not included. (Diabetes Care 2020; 43(S1): S66-S76). The eAG is not equivalent to a fasting glucose. Blood 06/03/2024 9:57 AM ORTHOPEDIC PHYSICIAN 06/03/2024 1:13 PM ORTHOPEDIC PHYSICIAN us Notinfile Unknown LAB BLOOD ORDERABLES Final Res ult Performing Organization Address [facility] Co de Phone Number [facility] Department [place] [address] * Ferritin (06/03/2024 9:57 AM ORTHOPEDIC PHYSICIAN) [facility] Ferritin 56 30 - 400 ng/mL Blood 06/03/2024 9:57 AM ORTHOPEDIC PHYSICIAN 06/03/2024 1:12 PM ORTHOPEDIC PHYSICIAN us Notinfile Unknown LAB BLOOD ORDERABLES Final Res ult Performing Organization Address [facility] de Phone Number [facility] Department [place] [address] * POCT lipid panel (06/01/2024 12:08 AM ORTHOPEDIC PHYSICIAN) Pathologist [facility] HDL, POC 43 mg/dL Triglycerides, POC 188 mg/dL LDL Cholesterol POC 71 mg/dL Chol/HDL Ratio, POC 1.7 Non-HDL Cholesterol, POC 109 mg/dL Cholesterol Total, POC 152 mg/dL Capillary blood 06/01/2024 1 2:08 AM ORTHOPEDIC PHYSICIAN us Anuel Kendall MD POINT OF CARE TEST ORDERABLES Fi nal Result * eGFR (05/01/2024 8:40 AM ORTHOPEDIC PHYSICIAN) eGFR 89 >=60 mL/min/1. 73 m2 Comment: Interpretive Data Reference Interval Normal >/= 90 mL/min/1.73m2 Mildly decreased* 60 - 89 mL/min/1.73m2 Mildly to moderately decreased 45 - 59 mL/min/1.73m2 Moderately to severely decreased 30 - 44 mL/min/1.73m2 Severely decreased 15 - 29 mL/min/1.73m2 Kidney Failure < 15 mL/min/1.73m2 *Relative to young adult level Estimated glomerular filtration rate is determined by the 2020 CKD-EPI equation recommended by the National Kidney Foundation (A Unifying Approach to GFR Estimation: Recommendations of the NKF-ASK Task Force on Reassessing the Inclusion of Race in Diagnosing Kidney Disease, JASN 2020). The CKD-EPI equation should not be used for patients with unstable renal function and has not been validated in children and those over 70. Current interpretive data was last reviewed 2021. Blood 05/01/2024 8:40 AM ORTHOPEDIC PHYSICIAN 05/01/2024 1:50 PM ORTHOPEDIC PHYSICIAN us Notinfile Unknown LAB BLOOD ORDERABLES Final Res ult [facility] Department [place] [address] * (ABNORMAL) Differential, auto (05/01/2024 8:40 AM ORTHOPEDIC PHYSICIAN) Pathologist [facility] Neutrophil abs 6.7(H) 1.5 - 6.5 K/cumm Imm gran abs 0.0 0.0 - 0.1 K/cumm [facility] Lymphocyte abs 0.7(L) 0.8 - 3.3 K/cumm [facility] Monocyte abs 0.7 0.2 - 0.8 K/cumm [facility] Eosinophil abs 0.6(H) 0.0 - 0.5 K/cumm [facility] Basophil abs 0.1 0.0 - 0.1 K/cumm [facility] Neutrophil pct 75.9 % [facility] Comment: Interpretive Data Percent cell count reference ranges are not reported, since discordance with absolute values may lead to misinterpretation of CBC data. Current Interpretive Data was last revised on 2017. Imm gran pct 0.5 % [facility] Comment: Interpretive Data Percent cell count reference ranges are not reported, since discordance with absolute values may lead to misinterpretation of CBC data. Current Interpretive Data was last revised on 2017. Lymphocyte pct 8.2 % [facility] Comment: Interpretive Data Percent cell count reference ranges are not reported, since discordance with absolute values may lead to misinterpretation of CBC data. Current Interpretive Data was last revised on 2017. Monocyte pct 8.2 % [facility] Comment: Interpretive Data Percent cell count reference ranges are not reported, since discordance with absolute values may lead to misinterpretation of CBC data. Current Interpretive Data was last revised on 2017. Eosinophil pct 6.4 % [facility] Comment: Interpretive Data Percent cell count reference ranges are not reported, since discordance with absolute values may lead to misinterpretation of CBC data. Current Interpretive Data was last revised on 2017. Basophil pct 0.8 % [facility] Comment: Interpretive Data Percent cell count reference ranges are not reported, since discordance with absolute values may lead to misinterpretation of CBC data. Current Interpretive Data was last revised on 2017. Blood 05/01/2024 8:40 AM ORTHOPEDIC PHYSICIAN 05/01/2024 1:47 PM ORTHOPEDIC PHYSICIAN us Notinfile Unknown LAB BLOOD ORDERABLES Final Res ult [facility] Department of Laboratories [place], [place] [id number] * (ABNORMAL) CBC with auto differential (05/01/2024 8:40 AM ORTHOPEDIC PHYSICIAN) WBC 8.8 3.8 - 9.9 K/cumm Hgb 7.9(L) 13.0 - 17.5 g/dL [facility] Hct 25.6(L) 38.9 - 50.3 % [facility] Plt 397 150 - 400 K/cumm [facility] MPV 10.1 9.1 - 12.3 fL [facility] RBC 2.75(L) 4.30 - 5.80 M/cumm [facility] MCV 93.1 81.3 - 96.4 fL [facility] MCH 28.7 27.1 - 33.3 pg [facility] MCHC 30.9(L) 32.3 - 35.7 g/dL [facility] RDW CV 14.6 11.1 - 14.9 % [facility] RDW SD 48.6(H) 35.7 - 48.1 fL [facility] NRBC abs 0.00 0.00 - 0.01 K/cumm [facility] Blood 05/01/2024 8:40 AM ORTHOPEDIC PHYSICIAN 05/01/2024 1:47 PM ORTHOPEDIC PHYSICIAN us Notinfile Unknown LAB BLOOD ORDERABLES Final Res ult Performing Organization Address City/[facility]/ZIP Co de Phone Number [facility] Department [place] [address] * Vancomycin level trough Ordered by Brenda Unknown (05/01/2024 8:40 AM ORTHOPEDIC PHYSICIAN) [facility] Vancomycin trough 18.3 10.0 - 20.0 mcg/mL Blood 05/01/2024 8:40 AM ORTHOPEDIC PHYSICIAN 05/01/2024 1:47 PM ORTHOPEDIC PHYSICIAN us Notinfile Unknown LAB BLOOD ORDERABLES Final Res ult [facility] Department [place] [address] * (ABNORMAL) Comprehensive metabolic panel (05/01/2024 8:40 AM ORTHOPEDIC PHYSICIAN) [facility] Sodium 141 135 - 145 mmol/L Potassium, pl 4.4 3.3 - 4.9 mmol/L [facility] Chloride 102 97 - 110 mmol/L [facility] CO2 27 22 - 32 mmol/L [facility] Anion gap 12 2 - 15 mmol/L [facility] BUN 13 6 - 25 mg/dL [facility] Creatinine 0.97 0.80 - 1.30 mg/dL [facility] Glucose 82 70 - 199 mg/dL [facility] Comment: Interpretive Data Fasting glucose >/= 126 mg/dl is diagnostic for diabetes. Fasting is defined as no caloric intake for at least 8 hours. Fasting glucose between 100 mg/dl to 125 mg/dl is diagnostic of prediabetes. In a patient with classic symptoms of hyperglycemia or hyperglycemic crisis, a random glucose >/= 200 mg/dl is diagnostic for diabetes. In the absence of unequivocal hyperglycemia, results should be confirmed by repeat testing. The classification and Diagnosis of Diabetes Diabetes Care 2021; 46: S19-S40. Current interpretive data was last revised 2022. Calcium 9.7 8.5 - 10.3 mg/dL [facility] Bilirubin, total 0.2 0.1 - 1.2 mg/dL [facility] Protein, pl 7.4 6.5 - 8.5 g/dL [facility] Albumin 3.3(L) 3.5 - 5.0 g/dL [facility] Alk phos 172(H) 40 - 130 Units/L [facility] ALT 56(H) 7 - 55 Units/L [facility] AST 41 10 - 50 Units/L [facility] Blood 05/01/2024 8:40 AM ORTHOPEDIC PHYSICIAN 05/01/2024 1:47 PM ORTHOPEDIC PHYSICIAN us Notinfile Unknown LAB BLOOD ORDERABLES Final Res ult [facility] [place] [address] * XR Chest 1 Vw (04/29/2024 2:57 PM ORTHOPEDIC PHYSICIAN) Anatomical Region Laterality Modality Body, Chest N/A Computed Radiogr aphy 04/29/2024 3:13 PM ORTHOPEDIC PHYSICIAN Impressions 04/29/2024 3:19 PM ORTHOPEDIC PHYSICIAN Median sternotomy wires are aligned and intact. Left upper extremity peripherally inserted central catheter tip overlies the superior cavoatrial junction. Unchanged small left pleural effusion with associated mild left basilar atelectasis. Unchanged streaky opacity in the right midlung, likely atelectasis or scarring. No pneumothorax. Cardiomediastinal silhouette is stable. Dictated by: Darrius Allen MD The radiology attending physician has personally reviewed this study, and had reviewed and/or edited this written report and agrees with it. Electronically signed by: Santiago Bonilla M.D. Narrative 04/29/2024 3:19 PM ORTHOPEDIC PHYSICIAN EXAMINATION: XR CHEST 1 VIEW HISTORY: chest tube removal COMPARISON: 04/29/2024 Procedure Note Santiago Bonilla MD - 04/29/2024 EXAMINATION: XR CHEST 1 VIEW HISTORY: chest tube removal COMPARISON: 04/29/2024 IMPRESSION: Median sternotomy wires are aligned and intact. Left upper extremity peripherally inserted central catheter tip overlies the superior cavoatrial junction. Unchanged small left pleural effusion with associated mild left basilar atelectasis. Unchanged streaky opacity in the right midlung, likely atelectasis or scarring. No pneumothorax. Cardiomediastinal silhouette is stable. Dictated by: Darrius Allen MD The radiology attending physician has personally reviewed this study, and had reviewed and/or edited this written report and agrees with it. Electronically signed by: Santiago Bonilla M.D. [facility] XR PROCEDURES Final Result * XR Chest 1 Vw (04/29/2024 2:04 PM ORTHOPEDIC PHYSICIAN) Anatomical Region Laterality Modality Body, Chest N/A Computed Radiogr aphy 04/29/2024 2:09 PM ORTHOPEDIC PHYSICIAN Impressions 04/29/2024 2:09 PM ORTHOPEDIC PHYSICIAN Comparison is made to 04/29/2024 radiograph performed earlier the same day. Interval placement of left upper extremity PICC line with tip projecting over the mid SVC. No pneumothorax. No pleural effusion. Cardiac mediastinal silhouette is mildly enlarged. Linear opacity in the mid right lung field may represent atelectasis or scarring. Left basilar subsegmental atelectasis. No new focal pulmonary consolidation. Median sternotomy wires appear intact. Electronically signed by: Ottoniel Hernandes D.O. Narrative 04/29/2024 2:09 PM ORTHOPEDIC PHYSICIAN EXAMINATION: XR CHEST 1 VIEW Procedure Note Ottoniel Hernandes DO - 04/29/2024 EXAMINATION: XR CHEST 1 VIEW IMPRESSION: Comparison is made to 04/29/2024 radiograph performed earlier the same day. Interval placement of left upper extremity PICC line with tip projecting over the mid SVC. No pneumothorax. No pleural effusion. Cardiac mediastinal silhouette is mildly enlarged. Linear opacity in the mid right lung field may represent atelectasis or scarring. Left basilar subsegmental atelectasis. No new focal pulmonary consolidation. Median sternotomy wires appear intact. Electronically signed by: Ottoniel Hernandes D.O. Rosibel WISE IMG XR PROCEDURES Final Result * [place] INSJ NON-TUNNELED CENTRAL VENOUS CATH AGE 5 YR/> (04/29/2024 11:39 AM ORTHOPEDIC PHYSICIAN) Narrative Rosibel Pacheco PA - 04/29/2024 11:39 AM ORTHOPEDIC PHYSICIAN Rosibel Pacheco PA 04/29/2024 11:41 AM PICC Line Insertion Date/Time: 04/29/2024 11:39 AM Performed by: Rosibel Pacheco PA Authorized by: Rosibel Pacheco PA [employer] Protocol: RN Notified of Procedure: yes Informed consent: Risks, benefits, alternatives discussed and patient/maintenance representative/guardian agrees and accepts Patient's stated name/ matches armband: Yes Allergies confirmed: yes Consent form signed, dated, timed; matches correct patient, intended procedure and site: Yes Imaging: Pertinent imaging reviewed, correctly oriented and match to patient identifiers Lab/Diag test results: Pertinent lab/diag tests reviewed and match to patient identifiers Supplies, devices and special equipment are available: yes Site/side marked: yes Immediately prior to the procedure a time out was called: a verbal verification by the procedure participants confirmed correct patient identity, correct site/side marked and visible (if applicable); agreement on procedure to be done; and correct patient positioning Have non- routine considerations been assessed?: Yes Indications: Vascular access (for IV antibiotics after discharge) Anesthesia (see MAR for exact dosage) Anesthesia method: Local infiltration Local anesthetic: Lidocaine 1% Patient position: Flat Skin preparation: Skin prepped with 2% chlorhexidine Provider preparation: Gloves, gown, handwashing, cap, mask and partial body drape Location: left basilic vein. Technique: Landmarks identified Ultrasound guidance: Used for needle insertion, used for site marking, landmarks identified and sterile probe cover used Assessment: Blood return through all ports and free fluid flow Catheter type: Double lumen Catheter size: 5 Fr Needle inserted, vein idenitified then guidewire inserted easily into vein: Yes Number of attempts: 1 Successful placement: Yes Catheter length (cm): 45 Line securement: Dressing applied and securement device Patient tolerance: Patient tolerated the procedure well with no immediate complications Post Procedure Debrief: All guidewires, needles, sponges or other items are accounted for: yes Any special post procedure monitoring, testing or other considerations: yes (enter/request order) All specimens identified, labeled and matched to patient identification: n/a Responsible alliance party for transporting specimen(s) to lab determined: n/a Rosibel WISE IN CLINIC/BEDSIDE ORDERA BLES Final Result * (ABNORMAL) Hemoglobin and hematocrit (04/29/2024 7:48 AM ORTHOPEDIC PHYSICIAN) Hgb 7.3(L) 13.0 - 17.5 g/dL Hct 23.8(L) 38.9 - 50.3 % [facility] Blood 04/29/2024 7:48 AM ORTHOPEDIC PHYSICIAN 04/29/2024 8:01 AM ORTHOPEDIC PHYSICIAN us Rosibel WISE LAB BLOOD ORDERABLES Fin al Result [facility] [address] [place] [address] * XR Chest 1 View - Portable - in AM (04/29/2024 5:42 AM ORTHOPEDIC PHYSICIAN) Anatomical Region Laterality Modality Body, Chest N/A Computed Radiogr aphy 04/29/2024 9:36 AM ORTHOPEDIC PHYSICIAN Impressions 04/29/2024 9:36 AM ORTHOPEDIC PHYSICIAN Comparison is made to chest radiograph dated 04/28/2024. The patient is status post median sternotomy. Mediastinal drain and pericardial drain are present. Unchanged bandlike atelectasis or scarring in the right midlung. Small left pleural effusion with associated left basilar atelectasis is similar to prior study. No right pleural effusion identified. No pneumothorax. Stable cardiomediastinal silhouette. Electronically signed by: Anika Rincon M.D. Narrative 04/29/2024 9:36 AM ORTHOPEDIC PHYSICIAN EXAMINATION: 1 view chest radiograph Procedure Note Anika Rincon MD - 04/29/2024 EXAMINATION: 1 view chest radiograph IMPRESSION: Comparison is made to chest radiograph dated 04/28/2024. The patient is status post median sternotomy. Mediastinal drain and pericardial drain are present. Unchanged bandlike atelectasis or scarring in the right midlung. Small left pleural effusion with associated left basilar atelectasis is similar to prior study. No right pleural effusion identified. No pneumothorax. Stable cardiomediastinal silhouette. Electronically signed by: Anika Rincon M.D. Horacio WISE IMG XR PROCEDURES Final Resu lt * eGFR (04/29/2024 12:38 AM ORTHOPEDIC PHYSICIAN) eGFR 89 >=60 mL/min/1. 73 m2 Comment: Interpretive Data Reference Interval Normal >/= 90 mL/min/1.73m2 Mildly decreased* 60 - 89 mL/min/1.73m2 Mildly to moderately decreased 45 - 59 mL/min/1.73m2 Moderately to severely decreased 30 - 44 mL/min/1.73m2 Severely decreased 15 - 29 mL/min/1.73m2 Kidney Failure < 15 mL/min/1.73m2 *Relative to young adult level Estimated glomerular filtration rate is determined by the 2020 CKD-EPI equation recommended by the National Kidney Foundation (A Unifying Approach to GFR Estimation: Recommendations of the NKF-ASK Task Force on Reassessing the Inclusion of Race in Diagnosing Kidney Disease, JASN 2020). The CKD-EPI equation should not be used for patients with unstable renal function and has not been validated in children and those over 70. Current interpretive data was last reviewed 2021. Blood 04/29/2024 12:3 8 AM ORTHOPEDIC PHYSICIAN 04/29/2024 1:05 AM ORTHOPEDIC PHYSICIAN Horacio WISE LAB BLOOD ORDERABLES Final R esult [facility] [address] Department of [employer] [place], [place] [id number] * (ABNORMAL) CBC without differential (04/29/2024 12:38 AM ORTHOPEDIC PHYSICIAN) WBC 8.5 3.8 - 9.9 K/cumm Hgb 6.8(L) 13.0 - 17.5 g/dL [facility] Hct 22.0(L) 38.9 - 50.3 % [facility] Plt 344 150 - 400 K/cumm [facility] MPV 9.8 9.1 - 12.3 fL [facility] RBC 2.32(L) 4.30 - 5.80 M/cumm [facility] MCV 94.8 81.3 - 96.4 fL [facility] MCH 29.3 27.1 - 33.3 pg [facility] MCHC 30.9(L) 32.3 - 35.7 g/dL [facility] RDW CV 14.2 11.1 - 14.9 % [facility] RDW SD 47.4 35.7 - 48.1 fL [facility] NRBC abs 0.00 0.00 - 0.01 K/cumm [facility] Blood 04/29/2024 12:3 8 AM ORTHOPEDIC PHYSICIAN 04/29/2024 1:05 AM ORTHOPEDIC PHYSICIAN Horacio WISE LAB BLOOD ORDERABLES Final R esult [facility] [address] Department [place] [address] * Magnesium (04/29/2024 12:38 AM ORTHOPEDIC PHYSICIAN) Pathologist [facility] Magnesium 2.0 1.4 - 2.5 mg/dL Blood 04/29/2024 12:3 8 AM ORTHOPEDIC PHYSICIAN 04/29/2024 1:05 AM ORTHOPEDIC PHYSICIAN us Horacio WISE LAB BLOOD ORDERABLES Final R esult [facility] [address] Department [place] [address] * (ABNORMAL) Renal function panel (04/29/2024 12:38 AM ORTHOPEDIC PHYSICIAN) [facility] Sodium 141 135 - 145 mmol/L Potassium, pl 4.2 3.3 - 4.9 mmol/L [facility] Chloride 106 97 - 110 mmol/L [facility] CO2 25 22 - 32 mmol/L [facility] Anion gap 10 2 - 15 mmol/L [facility] BUN 14 6 - 25 mg/dL [facility] Creatinine 0.97 0.80 - 1.30 mg/dL [facility] Glucose 113 70 - 199 mg/dL [facility] Comment: Interpretive Data Fasting glucose >/= 126 mg/dl is diagnostic for diabetes. Fasting is defined as no caloric intake for at least 8 hours. Fasting glucose between 100 mg/dl to 125 mg/dl is diagnostic of prediabetes. In a patient with classic symptoms of hyperglycemia or hyperglycemic crisis, a random glucose >/= 200 mg/dl is diagnostic for diabetes. In the absence of unequivocal hyperglycemia, results should be confirmed by repeat testing. The classification and Diagnosis of Diabetes Diabetes Care 202; 46: S19-S40. Current interpretive data was last revised 2022. Calcium 8.8 8.5 - 10.3 mg/dL [facility] Phosphorus, pl 5.0(H) 2.3 - 4.5 mg/dL [facility] Albumin 2.8(L) 3.5 - 5.0 g/dL [facility] Blood 04/29/2024 12:3 8 AM ORTHOPEDIC PHYSICIAN 04/29/2024 1:05 AM ORTHOPEDIC PHYSICIAN us Horacio WISE LAB BLOOD ORDERABLES Final R esult Performing Organization Address [facility] Co de Phone Number [facility] [address] Department [place] [address] * (ABNORMAL) Hemoglobin and hematocrit (04/28/2024 12:33 PM ORTHOPEDIC PHYSICIAN) Hgb 7.7(L) 13.0 - 17.5 g/dL Hct 24.6(L) 38.9 - 50.3 % [facility] Blood 04/28/2024 12:3 3 PM ORTHOPEDIC PHYSICIAN 04/28/2024 12:42 PM ORTHOPEDIC PHYSICIAN us Jessica WISE LAB BLOOD ORDERABLES Fi nal Result Performing Organization Address [facility] Co de Phone Number [facility] [address] Department [place] [address] * XR Chest 1 View - Portable - in AM (04/28/2024 6:50 AM ORTHOPEDIC PHYSICIAN) Anatomical Region Laterality Modality Body, Chest N/A Computed Radiogr aphy 04/28/2024 8:00 AM ORTHOPEDIC PHYSICIAN Impressions 04/28/2024 8:00 AM ORTHOPEDIC PHYSICIAN Comparison 04/27/2024. Median sternotomy wires are aligned. Mediastinal/pericardial drains are noted. Unchanged left basilar and right midlung opacities likely representing atelectasis with a small left pleural effusion. Lung volumes remain small. This is unchanged. No pneumothorax. The heart size is unchanged. Electronically signed by: Jacob Cardona M.D. Narrative 04/28/2024 8:00 AM ORTHOPEDIC PHYSICIAN EXAMINATION: 1 view chest radiograph Procedure Note Jacob Cardona MD - 04/28/2024 EXAMINATION: 1 view chest radiograph IMPRESSION: Comparison 04/27/2024. Median sternotomy wires are aligned. Mediastinal/pericardial drains are noted. Unchanged left basilar and right midlung opacities likely representing atelectasis with a small left pleural effusion. Lung volumes remain small. This is unchanged. No pneumothorax. The heart size is unchanged. Electronically signed by: Jacob Cardona M.D. Horacio WISE IMG XR PROCEDURES Final Resu lt * eGFR (04/28/2024 12:33 AM ORTHOPEDIC PHYSICIAN) [facility] eGFR >90 >=60 mL/min/1. 73 m2 Comment: Interpretive Data Reference Interval Normal >/= 90 mL/min/1.73m2 Mildly decreased* 60 - 89 mL/min/1.73m2 Mildly to moderately decreased 45 - 59 mL/min/1.73m2 Moderately to severely decreased 30 - 44 mL/min/1.73m2 Severely decreased 15 - 29 mL/min/1.73m2 Kidney Failure < 15 mL/min/1.73m2 *Relative to young adult level Estimated glomerular filtration rate is determined by the 2020 CKD-EPI equation recommended by the National Kidney Foundation (A Unifying Approach to GFR Estimation: Recommendations of the NKF-ASK Task Force on Reassessing the Inclusion of Race in Diagnosing Kidney Disease, JASN 2020). The CKD-EPI equation should not be used for patients with unstable renal function and has not been validated in children and those over 70. Current interpretive data was last reviewed 2021. Blood 04/28/2024 12:3 3 AM ORTHOPEDIC PHYSICIAN 04/28/2024 12:38 AM ORTHOPEDIC PHYSICIAN Horacio WISE LAB BLOOD ORDERABLES Final R esult [facility] [address] Department [place] [address] * (ABNORMAL) CBC without differential (04/28/2024 12:33 AM ORTHOPEDIC PHYSICIAN) [facility] WBC 9.1 3.8 - 9.9 K/cumm Hgb 7.2(L) 13.0 - 17.5 g/dL [facility] Hct 23.2(L) 38.9 - 50.3 % [facility] Plt 362 150 - 400 K/cumm [facility] MPV 9.5 9.1 - 12.3 fL [facility] RBC 2.47(L) 4.30 - 5.80 M/cumm [facility] MCV 93.9 81.3 - 96.4 fL [facility] MCH 29.1 27.1 - 33.3 pg [facility] MCHC 31.0(L) 32.3 - 35.7 g/dL [facility] RDW CV 13.9 11.1 - 14.9 % [facility] RDW SD 47.3 35.7 - 48.1 fL [facility] NRBC abs 0.00 0.00 - 0.01 K/cumm [facility] Blood 04/28/2024 12:3 3 AM ORTHOPEDIC PHYSICIAN 04/28/2024 12:39 AM ORTHOPEDIC PHYSICIAN Horacio WISE LAB BLOOD ORDERABLES Final R esult Performing Organization Address City/[facility]/ZIP Co de Phone Number [facility] [address] [place] [address] * Magnesium (04/28/2024 12:33 AM ORTHOPEDIC PHYSICIAN) [facility] Magnesium 2.0 1.4 - 2.5 mg/dL Blood 04/28/2024 12:3 3 AM ORTHOPEDIC PHYSICIAN 04/28/2024 12:38 AM ORTHOPEDIC PHYSICIAN Horacio WISE LAB BLOOD ORDERABLES Final R esult [facility] [address] Department [place] [address] * (ABNORMAL) Renal function panel (04/28/2024 12:33 AM ORTHOPEDIC PHYSICIAN) Sodium 140 135 - 145 mmol/L Potassium, pl 4.1 3.3 - 4.9 mmol/L [facility] Chloride 105 97 - 110 mmol/L [facility] CO2 25 22 - 32 mmol/L [facility] Anion gap 10 2 - 15 mmol/L [facility] BUN 18 6 - 25 mg/dL [facility] Creatinine 0.94 0.80 - 1.30 mg/dL [facility] Glucose 109 70 - 199 mg/dL [facility] Comment: Interpretive Data Fasting glucose >/= 126 mg/dl is diagnostic for diabetes. Fasting is defined as no caloric intake for at least 8 hours. Fasting glucose between 100 mg/dl to 125 mg/dl is diagnostic of prediabetes. In a patient with classic symptoms of hyperglycemia or hyperglycemic crisis, a random glucose >/= 200 mg/dl is diagnostic for diabetes. In the absence of unequivocal hyperglycemia, results should be confirmed by repeat testing. The classification and Diagnosis of Diabetes Diabetes Care 2021; 46: S19-S40. Current interpretive data was last revised 2022. Calcium 8.8 8.5 - 10.3 mg/dL [facility] Phosphorus, pl 5.1(H) 2.3 - 4.5 mg/dL [facility] Albumin 2.9(L) 3.5 - 5.0 g/dL [facility] Blood 04/28/2024 12:3 3 AM ORTHOPEDIC PHYSICIAN 04/28/2024 12:38 AM ORTHOPEDIC PHYSICIAN us Horacio WISE LAB BLOOD ORDERABLES Final R esult [facility] [address] Department [place] [address] * POCT glucose (04/27/2024 8:10 PM ORTHOPEDIC PHYSICIAN) [facility] Signature Glucose, POC 160 70 - 199 mg/dL Comment: For Glucose values <35 mg/dl when Hematocrit is >60 mg/dl,the test may not accurately detect significant hypoglycemia,and testing in the Laboratory should be considered if clinically indicated. Blood 04/27/2024 8:10 PM ORTHOPEDIC PHYSICIAN 04/27/2024 8:10 PM ORTHOPEDIC PHYSICIAN us Jaime Colin MD LAB POCT ORDERABLES - DE VICE Final Result [facility] [address] Department [place] [address] * XR Chest 1 View (04/27/2024 12:24 PM ORTHOPEDIC PHYSICIAN) Anatomical Region Laterality Modality Body, Chest N/A Computed Radiogr aphy 04/27/2024 12:3 5 PM ORTHOPEDIC PHYSICIAN Impressions 04/27/2024 12:35 PM ORTHOPEDIC PHYSICIAN Median sternotomy wires are aligned and intact. Interval removal of right-sided thoracostomy tube. Unchanged subsegmental atelectasis in the right middle lobe with small amount of fluid in the right minor fissure. Small bilateral pleural effusions. No pneumothorax. No new consolidation. Mild left basilar atelectasis. Cardiomediastinal silhouette is stable. Electronically signed by: Lucrecia Peterson M.D. Narrative 04/27/2024 12:35 PM ORTHOPEDIC PHYSICIAN EXAMINATION: XR CHEST 1 VIEW HISTORY: Status post chest tube removal COMPARISON: 04/27/2024 at 6:21 AM Procedure Note Lucrecia Peterson MD - 04/27/2024 EXAMINATION: XR CHEST 1 VIEW HISTORY: Status post chest tube removal COMPARISON: 04/27/2024 at 6:21 AM IMPRESSION: Median sternotomy wires are aligned and intact. Interval removal of right-sided thoracostomy tube. Unchanged subsegmental atelectasis in the right middle lobe with small amount of fluid in the right minor fissure. Small bilateral pleural effusions. No pneumothorax. No new consolidation. Mild left basilar atelectasis. Cardiomediastinal silhouette is stable. Electronically signed by: Lucrecia Peterson M.D. us Horacio WISE IMG XR PROCEDURES Final Resu lt * POCT glucose (04/27/2024 7:56 AM ORTHOPEDIC PHYSICIAN) Glucose, POC 116 70 - 199 mg/dL Comment: For Glucose values <35 mg/dl when Hematocrit is >60 mg/dl,the test may not accurately detect significant hypoglycemia,and testing in the Laboratory should be considered if clinically indicated. Blood 04/27/2024 7:56 AM ORTHOPEDIC PHYSICIAN 04/27/2024 7:56 AM ORTHOPEDIC PHYSICIAN us Jaime Colin MD LAB POCT ORDERABLES - DE VICE Final Result [facility] [address] Department [place] [address] * XR Chest 1 View - Portable - in AM (04/27/2024 6:44 AM ORTHOPEDIC PHYSICIAN) Anatomical Region Laterality Modality Body, Chest N/A Computed Radiogr aphy 04/27/2024 9:44 AM ORTHOPEDIC PHYSICIAN Impressions 04/27/2024 9:44 AM ORTHOPEDIC PHYSICIAN Median sternotomy wires are unchanged. Mediastinal, pericardial and bilateral thoracostomy tubes are again seen. Stable small bilateral pleural effusions with associated atelectasis. There is mild bandlike atelectasis in the right midlung, which is improved from the prior exam. There is no pneumothorax. Heart and mediastinal contours are stable. Electronically signed by: Carlos Tang MD, PHD Narrative 04/27/2024 9:44 AM ORTHOPEDIC PHYSICIAN EXAMINATION: XR CHEST 1 VIEW HISTORY: pleural effusion COMPARISON: 04/26/2024 Procedure Note Carlos Tang MD PhD - 04/27/2024 EXAMINATION: XR CHEST 1 VIEW HISTORY: pleural effusion COMPARISON: 04/26/2024 IMPRESSION: Median sternotomy wires are unchanged. Mediastinal, pericardial and bilateral thoracostomy tubes are again seen. Stable small bilateral pleural effusions with associated atelectasis. There is mild bandlike atelectasis in the right midlung, which is improved from the prior exam. There is no pneumothorax. Heart and mediastinal contours are stable. Electronically signed by: Carlos Tang MD, PHD us Horacio Tijerina PA IMG XR PROCEDURES Final Resu lt * eGFR (04/27/2024 12:47 AM ORTHOPEDIC PHYSICIAN) eGFR 86 >=60 mL/min/1. 73 m2 Comment: Interpretive Data Reference Interval Normal >/= 90 mL/min/1.73m2 Mildly decreased* 60 - 89 mL/min/1.73m2 Mildly to moderately decreased 45 - 59 mL/min/1.73m2 Moderately to severely decreased 30 - 44 mL/min/1.73m2 Severely decreased 15 - 29 mL/min/1.73m2 Kidney Failure < 15 mL/min/1.73m2 *Relative to young adult level Estimated glomerular filtration rate is determined by the 2020 CKD-EPI equation recommended by the National Kidney Foundation (A Unifying Approach to GFR Estimation: Recommendations of the NKF-ASK Task Force on Reassessing the Inclusion of Race in Diagnosing Kidney Disease, JASN 2020). The CKD-EPI equation should not be used for patients with unstable renal function and has not been validated in children and those over 70. Current interpretive data was last reviewed 2021. Blood 04/27/2024 12:4 7 AM ORTHOPEDIC PHYSICIAN 04/27/2024 2:45 AM ORTHOPEDIC PHYSICIAN Jaime Colin MD LAB BLOOD ORDERABLES Fin al Result Performing Organization Address City/[facility] Co de Phone Number [facility] [address] [employer] [place], [place] [id number] * Magnesium (04/27/2024 12:47 AM ORTHOPEDIC PHYSICIAN) Pathologist [facility] Magnesium 2.0 1.4 - 2.5 mg/dL Blood 04/27/2024 12:4 7 AM ORTHOPEDIC PHYSICIAN 04/27/2024 2:45 AM ORTHOPEDIC PHYSICIAN Jaime Colin MD LAB BLOOD ORDERABLES Fin al Result Performing Organization Address City/[facility] Co de Phone Number [facility] [address] Department [place] [address] * (ABNORMAL) Vancomycin level trough Obtain trough 04/27 at 0500. (04/27/2024 12:47 AM ORTHOPEDIC PHYSICIAN) Pathologist [facility] Vancomycin trough 21.9(H) 10.0 - 20.0 mcg/mL Blood 04/27/2024 12:4 7 AM ORTHOPEDIC PHYSICIAN 04/27/2024 2:45 AM ORTHOPEDIC PHYSICIAN Narrative [facility] - 04/27/2024 2:47 AM ORTHOPEDIC PHYSICIAN Obtain trough 04/27 at 0500. us Horacio WISE LAB BLOOD ORDERABLES Final R esult [facility] [address] Department [place] [address] * (ABNORMAL) Renal function panel (04/27/2024 12:47 AM ORTHOPEDIC PHYSICIAN) [facility] Sodium 139 135 - 145 mmol/L Potassium, pl 4.2 3.3 - 4.9 mmol/L [facility] Chloride 103 97 - 110 mmol/L [facility] CO2 24 22 - 32 mmol/L [facility] Anion gap 12 2 - 15 mmol/L [facility] BUN 16 6 - 25 mg/dL [facility] Creatinine 1.00 0.80 - 1.30 mg/dL [facility] Glucose 114 70 - 199 mg/dL [facility] Comment: Interpretive Data Fasting glucose >/= 126 mg/dl is diagnostic for diabetes. Fasting is defined as no caloric intake for at least 8 hours. Fasting glucose between 100 mg/dl to 125 mg/dl is diagnostic of prediabetes. In a patient with classic symptoms of hyperglycemia or hyperglycemic crisis, a random glucose >/= 200 mg/dl is diagnostic for diabetes. In the absence of unequivocal hyperglycemia, results should be confirmed by repeat testing. The classification and Diagnosis of Diabetes Diabetes Care 2021; 46: S19-S40. Current interpretive data was last revised 2022. Calcium 8.6 8.5 - 10.3 mg/dL [facility] Phosphorus, pl 4.4 2.3 - 4.5 mg/dL [facility] Albumin 2.7(L) 3.5 - 5.0 g/dL [facility] Blood 04/27/2024 12:4 7 AM ORTHOPEDIC PHYSICIAN 04/27/2024 2:45 AM ORTHOPEDIC PHYSICIAN us Jaime Colin MD LAB BLOOD ORDERABLES Fin al Result Performing Organization Address [facility]/ZIP Co de Phone Number [facility] [address] [place] [address] * (ABNORMAL) CBC without differential (04/27/2024 12:46 AM ORTHOPEDIC PHYSICIAN) [facility] WBC 9.0 3.8 - 9.9 K/cumm Hgb 7.7(L) 13.0 - 17.5 g/dL [facility] Hct 24.7(L) 38.9 - 50.3 % [facility] Plt 378 150 - 400 K/cumm [facility] MPV 9.7 9.1 - 12.3 fL [facility] RBC 2.62(L) 4.30 - 5.80 M/cumm [facility] MCV 94.3 81.3 - 96.4 fL [facility] MCH 29.4 27.1 - 33.3 pg [facility] MCHC 31.2(L) 32.3 - 35.7 g/dL [facility] RDW CV 14.2 11.1 - 14.9 % [facility] RDW SD 47.5 35.7 - 48.1 fL [facility] NRBC abs 0.00 0.00 - 0.01 K/cumm [facility] Blood 04/27/2024 12:4 6 AM ORTHOPEDIC PHYSICIAN 04/27/2024 12:46 AM ORTHOPEDIC PHYSICIAN us Horacio WISE LAB BLOOD ORDERABLES Final R esult [facility] [address] [employer] [place], [place] [id number] * POCT glucose (04/26/2024 8:17 PM ORTHOPEDIC PHYSICIAN) [facility] Glucose, POC 125 70 - 199 mg/dL Comment: For Glucose values <35 mg/dl when Hematocrit is >60 mg/dl,the test may not accurately detect significant hypoglycemia,and testing in the Laboratory should be considered if clinically indicated. Blood 04/26/2024 8:17 PM ORTHOPEDIC PHYSICIAN 04/26/2024 8:17 PM ORTHOPEDIC PHYSICIAN Jaime Colin MD LAB POCT ORDERABLES - DE VICE Final Result Performing Organization Address [facility] Co de Phone Number [facility]ST[facility] [address] [employer] [place], [place] [id number] * Transfuse RBC (04/26/2024 11:39 AM ORTHOPEDIC PHYSICIAN) Blood Jazmin Tirado NP BLOOD TRANSFUSION ORDERABL ES Final Result Performing Organization Address [facility] Co de Phone Number K[facility]ST[facility] [address] [place] [address] * [place] AN PROCEDURE PLACEHOLDER (04/26/2024 8:33 AM ORTHOPEDIC PHYSICIAN) Tommie Garner MD - 04/26/2024 8:33 AM ORTHOPEDIC PHYSICIAN Tommie Masters MD 04/26/2024 8:33 AM Peripheral IV Catheter Patient location: OR Staff: Placed by: Anesthesiologist: Tommie Masters MD Preprocedure prep: Prep solution: alcohol PPE: gloves and provider hat/mask PIV line: Laterality: right Site: wrist Catheter size: 18 g Technique: direct visualization Procedure details: good blood return and occlusive dressing applied Number of attempts: 1 Assessment: Events: patient tolerated procedure well with no complications us Tommie Masters MD ANESTHESIA ORDERABLES Final Result * [place] AN ELECTIVE ENDOTRACHEAL AIRWAY, [place] AN PROCEDURE PLACEHOLDER (04/26/2024 8:33 AM ORTHOPEDIC PHYSICIAN) Tommie Garner MD - 04/26/2024 8:33 AM ORTHOPEDIC PHYSICIAN Tommie Masters MD 04/26/2024 8:33 AM Airway Patient location: OR Urgency: elective Indications for airway management: anesthesia Difficult airway: no Staff: Placed by: Anesthesiologist: Tommie Masters MD Emergent airway documentation: Risks and benefits discussed: yes Consent obtained: yes Consent given by: patient Airway prep: Preoxygenated: yes Patient position: sniffing Mask difficulty assessment: 2 - vent by mask + OA or adjuvant Spontaneous ventilation during airway: absent Sedation level during airway: GA Final airway details: Final airway type: endotracheal airway Tube type: ETT ETT size: 8.0 mm Cuffed: yes Technique used for successful ETT placement: video laryngoscopy Devices/Methods used in placement: intubating stylet Insertion site: oral Video blade type: Wharton Blade size: 3 Cormack-Lehane (video): grade I - full view of glottis Cuff inflated with: air ETT to gums: 23 cm Placement verified by: auscultation and CO2 detection Airway secured with: silk tape Number of attempts: 1 us Tommie Masters MD ANESTHESIA ORDERABLES Final Result * Mycology (fungal) culture Wound Chest (04/26/2024 8:29 AM ORTHOPEDIC PHYSICIAN) Report Final Report: No fungus isolated Wound (Chest) 04/26/2024 8:2 9 AM ORTHOPEDIC PHYSICIAN 04/26/2024 10:00 AM ORTHOPEDIC PHYSICIAN Narrative [facility] - 05/26/2024 1:00 PM ORTHOPEDIC PHYSICIAN Superficial Sternal Wound Mycology cultures are held for 4 weeks. us Jaime Colin MD LAB MICROBIOLOGY - [facility] AL ORDERABLES Final Result [facility] [address] Department [place] [address] * (ABNORMAL) Aerobic and anaerobic culture and gram stain Wound Chest (04/26/2024 8:29 AM ORTHOPEDIC PHYSICIAN) Direct Specimen Exam Stain: No polymorphonuclear leukocytes seen. No organisms seen. Report Final Report: Very light growth Staphylococcus hominis Susceptibility not performed on this isolate (.) [facility] Organism STAPHYLOCOCCUS HOMINIS [facility] Wound (Chest) 04/26/2024 8:2 9 AM ORTHOPEDIC PHYSICIAN 04/26/2024 10:00 AM ORTHOPEDIC PHYSICIAN Narrative [facility] - 04/29/2024 8:03 AM ORTHOPEDIC PHYSICIAN Superficial Sternal Wound us Jaime Colin MD LAB MICROBIOLOGY - GENER AL ORDERABLES Final Result Performing Organization Address [facility] Co de Phone Number [facility] [address] [facility] [employer] [place] [address] * Prepare RBC: 2 Units (04/26/2024 8:01 AM ORTHOPEDIC PHYSICIAN) Product code [id number] [facility] Unit Number [id number] [id number] [facility] Product Blood Type OPOS [facility] Dispense Status RETURNED [facility] Product code [id number] Unit Number [id number] [id number] [facility] Product Blood Type OPOS [facility] Dispense Status RETURNED [facility] Blood 04/26/2024 8:01 AM ORTHOPEDIC PHYSICIAN Narrative [facility] - 04/28/2024 7:24 AM ORTHOPEDIC PHYSICIAN Specify Procedure:->chest closure Are special requirements needed? (All products are leukoreduced and CMV- safe)- >No Date required:-[id number] LRRBC # of [id number] Reasons:-Hold for procedure (specify procedure)} Jaime Colin MD BLOOD BANK PRODUCT ORDER GINNA Final Result Performing Organization Address [facility] de Phone Number [facility] [address] [place] [address] * Critical Care (04/26/2024 7:14 AM ORTHOPEDIC PHYSICIAN) Narrative Surendra Jade MD - 04/26/2024 7:14 AM ORTHOPEDIC PHYSICIAN Jazmin Tirado NP 04/26/2024 10:04 AM Critical Care Performed by: Jazmin Tirado NP Authorized by: Jazmin Tirado NP CRITICAL CARE: Team: [facility] CT Shift: AM Level of Billing: Subsequent Hospital Visit Level 3 My time spent with this patient was 45 minutes: Critical Provider Statement: I have seen and examined the patient on this day of service. I have reviewed and confirmed the history, physical exam, laboratory, and radiographic data as documented in the ICU note. I have reviewed and discussed my treatment plan with the patient's team and other medical/it architecture consultant staff. This time was in addition to and separate from care provided by other practitioners on this day of service. Jazmin Tirado NP IN CLINIC/BEDSIDE ORDERABL ES Final Result * XR Chest 1 View - Portable - in AM (04/26/2024 6:30 AM ORTHOPEDIC PHYSICIAN) Anatomical Region Laterality Modality Body, Chest N/A Computed Radiogr aphy 04/26/2024 8:36 AM ORTHOPEDIC PHYSICIAN Impressions 04/26/2024 8:36 AM ORTHOPEDIC PHYSICIAN Comparison 04/25/2024 6:16 AM. Median sternotomy wires are aligned and intact. Mediastinal drains again seen. Left chest tube again seen. Increasing left retrocardiac opacification most compatible with left lower lobe collapse. Small left pleural effusion again seen. Increasing right basilar and right upper lung opacity most compatible with atelectasis, given the smaller hemithorax. Attention on follow-up examination recommended to exclude aspiration/pneumonia. No pneumothorax seen. Cardiomediastinal silhouette stable. Electronically signed by: Bronson Aragon M.D. Narrative 04/26/2024 8:36 AM ORTHOPEDIC PHYSICIAN EXAMINATION: Chest 1 view Procedure Note Bronson Aragon MD - 04/26/2024 EXAMINATION: Chest 1 view IMPRESSION: Comparison 04/25/2024 6:16 AM. Median sternotomy wires are aligned and intact. Mediastinal drains again seen. Left chest tube again seen. Increasing left retrocardiac opacification most compatible with left lower lobe collapse. Small left pleural effusion again seen. Increasing right basilar and right upper lung opacity most compatible with atelectasis, given the smaller hemithorax. Attention on follow-up examination recommended to exclude aspiration/pneumonia. No pneumothorax seen. Cardiomediastinal silhouette stable. Electronically signed by: Bronson Aragon M.D. us Horacio WISE IMG XR PROCEDURES Final Resu lt * Prepare RBC: 1 Units (04/26/2024 5:30 AM ORTHOPEDIC PHYSICIAN) Product code [id number] Unit Number [id number] [facility] Product Blood Type OPOS [facility] Dispense Status PRESUMED TRANSFUSED [facility] Blood 04/26/2024 5:30 AM ORTHOPEDIC PHYSICIAN Narrative [facility] - 04/27/2024 10:15 AM ORTHOPEDIC PHYSICIAN Are special requirements needed? (All products are leukoreduced and CMV- safe)- >No Date required:-[id number] LRRBC # of [id number] Reasons:-Hgb <7 g/dL} Nav WISE BLOOD BANK PRODUCT ORDERA BLES Final Result Performing Organization Address City/[facility]/ZIP Co de Phone Number [facility] [address] [place] [address] * (ABNORMAL) Hemoglobin and hematocrit (04/26/2024 4:53 AM ORTHOPEDIC PHYSICIAN) Hgb 6.5(L) 13.0 - 17.5 g/dL Hct 21.2(L) 38.9 - 50.3 % [facility] Blood 04/26/2024 4:53 AM ORTHOPEDIC PHYSICIAN 04/26/2024 5:04 AM ORTHOPEDIC PHYSICIAN Nav WISE LAB BLOOD ORDERABLES Gail l Result Performing Organization Address City/[facility]/ZIP Co de Phone Number [facility] [address] [employer] [place], [place] [id number] * eGFR (04/26/2024 1:34 AM ORTHOPEDIC PHYSICIAN) eGFR 79 >=60 mL/min/1. 73 m2 Comment: Interpretive Data Reference Interval Normal >/= 90 mL/min/1.73m2 Mildly decreased* 60 - 89 mL/min/1.73m2 Mildly to moderately decreased 45 - 59 mL/min/1.73m2 Moderately to severely decreased 30 - 44 mL/min/1.73m2 Severely decreased 15 - 29 mL/min/1.73m2 Kidney Failure < 15 mL/min/1.73m2 *Relative to young adult level Estimated glomerular filtration rate is determined by the 2020 CKD-EPI equation recommended by the National Kidney Foundation (A Unifying Approach to GFR Estimation: Recommendations of the NKF-ASK Task Force on Reassessing the Inclusion of Race in Diagnosing Kidney Disease, JASN 202). The CKD-EPI equation should not be used for patients with unstable renal function and has not been validated in children and those over 70. Current interpretive data was last reviewed 2021. Blood 04/26/2024 1:34 AM ORTHOPEDIC PHYSICIAN 04/26/2024 1:57 AM ORTHOPEDIC PHYSICIAN Nav WISE LAB BLOOD ORDERABLES Gail l Result Performing Organization Address City/[facility]/ZIP Co de Phone Number [facility] [address] [place] [address] * Calcium, ionized (04/26/2024 1:34 AM ORTHOPEDIC PHYSICIAN) [facility] Calcium, Ionized 4.86 4.50 - 5.10 mg/dL Blood 04/26/2024 1:34 AM ORTHOPEDIC PHYSICIAN 04/26/2024 1:39 AM ORTHOPEDIC PHYSICIAN Nav WISE LAB BLOOD ORDERABLES Gail l Result Performing Organization Address City/[facility]/ZIP Co de Phone Number [facility] [address] Department [place] [employer] [place] [address] * (ABNORMAL) CBC without differential (04/26/2024 1:34 AM ORTHOPEDIC PHYSICIAN) [facility] WBC 8.9 3.8 - 9.9 K/cumm Hgb 6.8(L) 13.0 - 17.5 g/dL [facility] Hct 22.3(L) 38.9 - 50.3 % [facility] Plt 370 150 - 400 K/cumm [facility] MPV 9.7 9.1 - 12.3 fL [facility] RBC 2.34(L) 4.30 - 5.80 M/cumm [facility] MCV 95.3 81.3 - 96.4 fL [facility] MCH 29.1 27.1 - 33.3 pg [facility] MCHC 30.5(L) 32.3 - 35.7 g/dL [facility] RDW CV 14.4 11.1 - 14.9 % [facility] RDW SD 49.3(H) 35.7 - 48.1 fL [facility] NRBC abs 0.00 0.00 - 0.01 K/cumm [facility] Blood 04/26/2024 1:34 AM ORTHOPEDIC PHYSICIAN 04/26/2024 1:57 AM ORTHOPEDIC PHYSICIAN Horacio WISE LAB BLOOD ORDERABLES Final R esult Performing Organization Address City/[facility]/ZIP Co de Phone Number [facility] [address] [facility] [employer] [place] [address] * Potassium (04/26/2024 1:34 AM ORTHOPEDIC PHYSICIAN) Potassium, pl 4.3 3.3 - 4.9 mmol/L Blood 04/26/2024 1:34 AM ORTHOPEDIC PHYSICIAN 04/26/2024 1:57 AM ORTHOPEDIC PHYSICIAN Jazmin Tirado ANALYSIS REPORTING DEVELOPER LAB BLOOD ORDERABLES Final Result Performing Organization Address [facility] Co de Phone Number [facility] [address] Department [employer] [place], [place] [id number] * Magnesium (04/26/2024 1:34 AM ORTHOPEDIC PHYSICIAN) Magnesium 2.0 1.4 - 2.5 mg/dL Blood 04/26/2024 1:34 AM ORTHOPEDIC PHYSICIAN 04/26/2024 1:57 AM ORTHOPEDIC PHYSICIAN Horacio WISE LAB BLOOD ORDERABLES Final R esult Performing Organization Address City/[facility]/ZIP Co de Phone Number [facility] [address] Department [employer] [place], [place] [phone] * (ABNORMAL) Renal function panel (04/26/2024 1:34 AM ORTHOPEDIC PHYSICIAN) Sodium 138 135 - 145 mmol/L Potassium, pl 4.3 3.3 - 4.9 mmol/L [facility] Chloride 106 97 - 110 mmol/L [facility] CO2 24 22 - 32 mmol/L [facility] Anion gap 8 2 - 15 mmol/L [facility] BUN 17 6 - 25 mg/dL [facility] Creatinine 1.07 0.80 - 1.30 mg/dL [facility] Glucose 108 70 - 199 mg/dL [facility] Comment: Interpretive Data Fasting glucose >/= 126 mg/dl is diagnostic for diabetes. Fasting is defined as no caloric intake for at least 8 hours. Fasting glucose between 100 mg/dl to 125 mg/dl is diagnostic of prediabetes. In a patient with classic symptoms of hyperglycemia or hyperglycemic crisis, a random glucose >/= 200 mg/dl is diagnostic for diabetes. In the absence of unequivocal hyperglycemia, results should be confirmed by repeat testing. The classification and Diagnosis of Diabetes Diabetes Care 2021; 46: S19-S40. Current interpretive data was last revised 2022. Calcium 8.7 8.5 - 10.3 mg/dL [facility] Phosphorus, pl 4.9(H) 2.3 - 4.5 mg/dL [facility] Albumin 2.9(L) 3.5 - 5.0 g/dL [facility] Blood 04/26/2024 1:34 AM ORTHOPEDIC PHYSICIAN 04/26/2024 1:57 AM ORTHOPEDIC PHYSICIAN us Horacio WISE LAB BLOOD ORDERABLES Final R esult [facility] [address] Department of Laboratories [place], [place] [phone] * Critical Care (04/25/2024 6:37 PM ORTHOPEDIC PHYSICIAN) Narrative Surendra Jade MD - 04/25/2024 6:37 PM ORTHOPEDIC PHYSICIAN Nav Parker PA 04/26/2024 5:33 AM Critical Care Performed by: Nav Parker PA Authorized by: Nav Parker PA CRITICAL CARE: Team: [facility] CT Shift: PM Level of Billing: Subsequent Hospital Visit Level 3 My time spent with this patient was 45 minutes: Critical Provider Statement: I have seen and examined the patient on this day of service. I have reviewed and confirmed the history, physical exam, laboratory, and radiographic data as documented in the ICU note. I have reviewed and discussed my treatment plan with the patient's team and other medical/it architecture consultant staff. This time was in addition to and separate from care provided by other practitioners on this day of service. I spent time reviewing and interpreting data from bedside monitors, laboratory results, and imaging, I spent time discussing the management of this critically ill patient with consultants and the medical staff and I spent time documenting in the medical record us Nav WISE IN CLINIC/BEDSIDE ORDERAB LES Final Result * POCT glucose (04/25/2024 8:16 AM ORTHOPEDIC PHYSICIAN) [facility] Signature Glucose, POC 134 70 - 199 mg/dL Comment: For Glucose values <35 mg/dl when Hematocrit is >60 mg/dl,the test may not accurately detect significant hypoglycemia,and testing in the Laboratory should be considered if clinically indicated. Blood 04/25/2024 8:16 AM ORTHOPEDIC PHYSICIAN 04/25/2024 8:16 AM ORTHOPEDIC PHYSICIAN Jaime Colin MD LAB POCT ORDERABLES - DE VICE Final Result [facility] [address] Department [place] [address] * XR Chest 1 View - Portable - in AM (04/25/2024 6:50 AM ORTHOPEDIC PHYSICIAN) Anatomical Region Laterality Modality Body, Chest N/A Computed Radiogr aphy 04/25/2024 8:51 AM ORTHOPEDIC PHYSICIAN Impressions 04/25/2024 8:51 AM ORTHOPEDIC PHYSICIAN Median sternotomy. Mediastinal and bilateral thoracotomy tubes are present. Mild cardiomegaly with findings of coronary artery bypass grafting. There is bibasilar airspace opacities, likely maintenance representative of subsegmental atelectasis. Trace bilateral pleural effusions. No pneumothorax. Electronically signed by: Kaushal Tsang M.D. Narrative 04/25/2024 8:51 AM ORTHOPEDIC PHYSICIAN PORTABLE CHEST RADIOGRAPH INDICATION: pleural effusion COMPARISON: 04/24/2024 VIEWS: 1 Procedure Note Kaushal Tsang MD - 04/25/2024 PORTABLE CHEST RADIOGRAPH INDICATION: pleural effusion COMPARISON: 04/24/2024 VIEWS: 1 IMPRESSION: Median sternotomy. Mediastinal and bilateral thoracotomy tubes are present. Mild cardiomegaly with findings of coronary artery bypass grafting. There is bibasilar airspace opacities, likely maintenance representative of subsegmental atelectasis. Trace bilateral pleural effusions. No pneumothorax. Electronically signed by: Kaushal Tsang M.D. us Horacio WISE IMG XR PROCEDURES Final Resu lt * Critical Care (04/25/2024 6:48 AM ORTHOPEDIC PHYSICIAN) Narrative Surendra Jade MD - 04/25/2024 6:48 AM ORTHOPEDIC PHYSICIAN Jazmin Tirado NP 04/25/2024 3:01 PM Critical Care Performed by: Jazmin Tirado NP Authorized by: Jazmin Tirado NP CRITICAL CARE: Team: [facility] CT Shift: AM Level of Billing: Critical Care My time spent with this patient was 65 minutes: Critical Provider Statement: I have seen and examined the patient on this day of service. I have reviewed and confirmed the history, physical exam, laboratory and radiologic data as documented in the signed ICU note. I have reviewed and discussed my treatment plan with the ICU team and other medical/it architecture consultant staff, making frequent assessments and decisions regarding this patient's complex medical care. Critical Care time was exclusive of time spent performing separately billed procedures, treating other patients, and teaching. This time was in addition to and separate from critical care provided by other practitioners in my group on this day of service. Critical Care was necessary to treat or prevent imminent or life-threatening deterioration of the following conditions: I spent time reviewing and interpreting data from bedside monitors, laboratory results, and imaging, I spent time discussing the management of this critically ill patient with consultants and the medical staff and I spent time documenting in the medical record us Jazmin Tirado NP IN CLINIC/BEDSIDE ORDERABL ES Final Result * eGFR (04/25/2024 6:28 AM ORTHOPEDIC PHYSICIAN) eGFR >90 >=60 mL/min/1. 73 m2 Comment: Interpretive Data Reference Interval Normal >/= 90 mL/min/1.73m2 Mildly decreased* 60 - 89 mL/min/1.73m2 Mildly to moderately decreased 45 - 59 mL/min/1.73m2 Moderately to severely decreased 30 - 44 mL/min/1.73m2 Severely decreased 15 - 29 mL/min/1.73m2 Kidney Failure < 15 mL/min/1.73m2 *Relative to young adult level Estimated glomerular filtration rate is determined by the 2020 CKD-EPI equation recommended by the National Kidney Foundation (A Unifying Approach to GFR Estimation: Recommendations of the NKF-ASK Task Force on Reassessing the Inclusion of Race in Diagnosing Kidney Disease, JASN 2020). The CKD-EPI equation should not be used for patients with unstable renal function and has not been validated in children and those over 70. Current interpretive data was last reviewed 2021. Blood 04/25/2024 6:28 AM ORTHOPEDIC PHYSICIAN 04/25/2024 6:52 AM ORTHOPEDIC PHYSICIAN Nav WISE LAB BLOOD ORDERABLES Gail l Result Performing Organization Address City/[facility]/ZIP Co de Phone Number [place] [address] [employer] [place] [address] * Calcium, ionized (04/25/2024 6:28 AM ORTHOPEDIC PHYSICIAN) Pathologist [facility] Calcium, Ionized 4.80 4.50 - 5.10 mg/dL Blood 04/25/2024 6:28 AM ORTHOPEDIC PHYSICIAN 04/25/2024 6:44 AM ORTHOPEDIC PHYSICIAN Nav WISE LAB BLOOD ORDERABLES Gail l Result [facility] [address] Department [place] [address] * (ABNORMAL) CBC without differential (04/25/2024 6:28 AM ORTHOPEDIC PHYSICIAN) WBC 12.5(H) 3.8 - 9.9 K/cumm Hgb 7.4(L) 13.0 - 17.5 g/dL [facility] Hct 24.2(L) 38.9 - 50.3 % [facility] Plt 368 150 - 400 K/cumm [facility] MPV 10.0 9.1 - 12.3 fL [facility] RBC 2.55(L) 4.30 - 5.80 M/cumm [facility] MCV 94.9 81.3 - 96.4 fL [facility] MCH 29.0 27.1 - 33.3 pg [facility] MCHC 30.6(L) 32.3 - 35.7 g/dL [facility] RDW CV 14.6 11.1 - 14.9 % [facility] RDW SD 48.4(H) 35.7 - 48.1 fL [facility] NRBC abs 0.00 0.00 - 0.01 K/cumm [facility] Blood 04/25/2024 6:28 AM ORTHOPEDIC PHYSICIAN 04/25/2024 6:52 AM ORTHOPEDIC PHYSICIAN Horacio WISE LAB BLOOD ORDERABLES Final R esult Performing Organization Address City/[facility] Co de Phone Number [facility] [address] [facility] [employer] [place] [address] * Magnesium (04/25/2024 6:28 AM ORTHOPEDIC PHYSICIAN) [facility] Magnesium 2.3 1.4 - 2.5 mg/dL Blood 04/25/2024 6:28 AM ORTHOPEDIC PHYSICIAN 04/25/2024 6:52 AM ORTHOPEDIC PHYSICIAN Horacio WISE LAB BLOOD ORDERABLES Final R esult Performing Organization Address City/[facility]/ZIP Co de Phone Number [facility] [address] Department [place] [address] * (ABNORMAL) Renal function panel (04/25/2024 6:28 AM ORTHOPEDIC PHYSICIAN) Sodium 137 135 - 145 mmol/L Potassium, pl 4.7 3.3 - 4.9 mmol/L [facility] Chloride 102 97 - 110 mmol/L [facility] CO2 24 22 - 32 mmol/L [facility] Anion gap 11 2 - 15 mmol/L [facility] BUN 18 6 - 25 mg/dL [facility] Creatinine 0.93 0.80 - 1.30 mg/dL [facility] Glucose 122 70 - 199 mg/dL [facility] Comment: Interpretive Data Fasting glucose >/= 126 mg/dl is diagnostic for diabetes. Fasting is defined as no caloric intake for at least 8 hours. Fasting glucose between 100 mg/dl to 125 mg/dl is diagnostic of prediabetes. In a patient with classic symptoms of hyperglycemia or hyperglycemic crisis, a random glucose >/= 200 mg/dl is diagnostic for diabetes. In the absence of unequivocal hyperglycemia, results should be confirmed by repeat testing. The classification and Diagnosis of Diabetes Diabetes Care 2021; 46: S19-S40. Current interpretive data was last revised 2022. Calcium 8.7 8.5 - 10.3 mg/dL [facility] Phosphorus, pl 5.1(H) 2.3 - 4.5 mg/dL [facility] Albumin 3.1(L) 3.5 - 5.0 g/dL [facility] Blood 04/25/2024 6:28 AM ORTHOPEDIC PHYSICIAN 04/25/2024 6:52 AM ORTHOPEDIC PHYSICIAN us Horacio WISE LAB BLOOD ORDERABLES Final R esult [facility] [address] Department of Laboratories [place], [place] [id number] * Critical Care (04/24/2024 10:07 PM ORTHOPEDIC PHYSICIAN) Narrative Surendra Jade MD - 04/24/2024 10:07 PM ORTHOPEDIC PHYSICIAN Nav Parker PA 04/25/2024 5:43 AM Critical Care Performed by: Nav Parker PA Authorized by: Nav Parker PA CRITICAL CARE: Team: [facility] CT Shift: PM Level of Billing: Subsequent Hospital Visit Level 3 My time spent with this patient was 60 minutes: Critical Provider Statement: I have seen and examined the patient on this day of service. I have reviewed and confirmed the history, physical exam, laboratory, and radiographic data as documented in the ICU note. I have reviewed and discussed my treatment plan with the patient's team and other medical/it architecture consultant staff. This time was in addition to and separate from care provided by other practitioners on this day of service. I spent time reviewing and interpreting data from bedside monitors, laboratory results, and imaging, I spent time discussing the management of this critically ill patient with consultants and the medical staff and I spent time documenting in the medical record Nav WIES IN CLINIC/BEDSIDE ORDERAB LES Final Result * eGFR (04/24/2024 10:07 PM ORTHOPEDIC PHYSICIAN) eGFR 86 >=60 mL/min/1. 73 m2 Comment: Interpretive Data Reference Interval Normal >/= 90 mL/min/1.73m2 Mildly decreased* 60 - 89 mL/min/1.73m2 Mildly to moderately decreased 45 - 59 mL/min/1.73m2 Moderately to severely decreased 30 - 44 mL/min/1.73m2 Severely decreased 15 - 29 mL/min/1.73m2 Kidney Failure < 15 mL/min/1.73m2 *Relative to young adult level Estimated glomerular filtration rate is determined by the 2020 CKD-EPI equation recommended by the National Kidney Foundation (A Unifying Approach to GFR Estimation: Recommendations of the NKF-ASK Task Force on Reassessing the Inclusion of Race in Diagnosing Kidney Disease, JASN 202). The CKD-EPI equation should not be used for patients with unstable renal function and has not been validated in children and those over 70. Current interpretive data was last reviewed 2021. Blood 04/24/2024 10:0 7 PM ORTHOPEDIC PHYSICIAN 04/24/2024 10:15 PM ORTHOPEDIC PHYSICIAN us Nav WISE LAB BLOOD ORDERABLES Gail l Result RADHADEMETRIUS [facility] [address] Department [place] [address] * Calcium, ionized (04/24/2024 10:07 PM ORTHOPEDIC PHYSICIAN) Pathologist [facility] Calcium, Ionized 4.92 4.50 - 5.10 mg/dL Blood 04/24/2024 10:0 7 PM ORTHOPEDIC PHYSICIAN 04/24/2024 10:14 PM ORTHOPEDIC PHYSICIAN Nav WISE LAB BLOOD ORDERABLES Gail l Result Performing Organization Address [facility] Co de Phone Number [facility] [address] [facility] [employer] [place] [address] * (ABNORMAL) aPTT (04/24/2024 10:07 PM ORTHOPEDIC PHYSICIAN) [facility] aPTT 27(L) 28 - 38 sec Comment: Interpretive Data Heparin therapeutic range: 66.0 - 100.0 seconds. Range based on correlation with therapeutic heparin activity range of 0.3 - 0.7 Units/mL. Current interpretive data was last revised on 2023. Blood 04/24/2024 10:0 7 PM ORTHOPEDIC PHYSICIAN 04/24/2024 10:15 PM ORTHOPEDIC PHYSICIAN Nav WISE LAB BLOOD ORDERABLES Gail l Result Performing Organization Address [facility] de Phone Number [facility] [address] [facility] [place] [address] * Protime-INR (04/24/2024 10:07 PM ORTHOPEDIC PHYSICIAN) [facility] PT 12.1 9.7 - 13.0 sec INR 1.12 0.90 - 1.20 [facility] Comment: Interpretive data Oral anticoagulant therapeutic ranges: Venous thromboembolism prophylaxis or treatment: 2.0-3.0 CARDIOLOGY Standard range: 2.0-3.0 High-intensity range: 2.5-3.5 Refer to indication-specific guidelines for appropriate target ranges for prosthetic heart valve replacement. Current interpretive data was last revised on 2019. Blood 04/24/2024 10:0 7 PM ORTHOPEDIC PHYSICIAN 04/24/2024 10:15 PM ORTHOPEDIC PHYSICIAN Nav WISE LAB BLOOD ORDERABLES Gail l Result Performing Organization Address [facility]/ZIP Co de Phone Number [facility] [address] [employer] [place], [place] [phone] * (ABNORMAL) CBC without differential (04/24/2024 10:07 PM ORTHOPEDIC PHYSICIAN) Pathologist [facility] WBC 12.9(H) 3.8 - 9.9 K/cumm Hgb 7.5(L) 13.0 - 17.5 g/dL [facility] Hct 24.2(L) 38.9 - 50.3 % [facility] Plt 254 150 - 400 K/cumm [facility] MPV 10.7 9.1 - 12.3 fL [facility] RBC 2.50(L) 4.30 - 5.80 M/cumm [facility] MCV 96.8(H) 81.3 - 96.4 fL [facility] MCH 30.0 27.1 - 33.3 pg [facility] MCHC 31.0(L) 32.3 - 35.7 g/dL [facility] RDW CV 14.6 11.1 - 14.9 % [facility] RDW SD 49.5(H) 35.7 - 48.1 fL [facility] NRBC abs 0.00 0.00 - 0.01 K/cumm [facility] Blood 04/24/2024 10:0 7 PM ORTHOPEDIC PHYSICIAN 04/24/2024 10:15 PM ORTHOPEDIC PHYSICIAN Nav WISE LAB BLOOD ORDERABLES Gail l Result Performing Organization Address City/[facility]/ZIP Co de Phone Number [facility] [address] [facility] [employer] [place], [place] [id number] * (ABNORMAL) Phosphorus (04/24/2024 10:07 PM ORTHOPEDIC PHYSICIAN) Phosphorus, pl 5.1(H) 2.3 - 4.5 mg/dL Blood 04/24/2024 10:0 7 PM ORTHOPEDIC PHYSICIAN 04/24/2024 10:15 PM ORTHOPEDIC PHYSICIAN Nav WISE LAB BLOOD ORDERABLES Gail l Result Performing Organization Address [facility] Co de Phone Number [facility] [address] [employer] [place] [address] * Magnesium (04/24/2024 10:07 PM ORTHOPEDIC PHYSICIAN) [facility] Magnesium 1.9 1.4 - 2.5 mg/dL Blood 04/24/2024 10:0 7 PM ORTHOPEDIC PHYSICIAN 04/24/2024 10:15 PM ORTHOPEDIC PHYSICIAN Nav WISE LAB BLOOD ORDERABLES Gail l Result Performing Organization Address [facility] de Phone Number [facility] [address] Department [place] [address] * (ABNORMAL) Basic metabolic panel (04/24/2024 10:07 PM ORTHOPEDIC PHYSICIAN) [facility] Sodium 134(L) 135 - 145 mmol/L Potassium, pl 5.2(H) 3.3 - 4.9 mmol/L [facility] Comment:Hemolyzed; potassium value may be falsely elevated by as much as 0.3 - 0.5 mmol/L. Suggest redraw and reanalysis Chloride 99 97 - 110 mmol/L [facility] CO2 24 22 - 32 mmol/L [facility] Anion gap 11 2 - 15 mmol/L [facility] BUN 19 6 - 25 mg/dL [facility] Creatinine 1.00 0.80 - 1.30 mg/dL [facility] Glucose 111 70 - 199 mg/dL [facility] Comment: Interpretive Data Fasting glucose >/= 126 mg/dl is diagnostic for diabetes. Fasting is defined as no caloric intake for at least 8 hours. Fasting glucose between 100 mg/dl to 125 mg/dl is diagnostic of prediabetes. In a patient with classic symptoms of hyperglycemia or hyperglycemic crisis, a random glucose >/= 200 mg/dl is diagnostic for diabetes. In the absence of unequivocal hyperglycemia, results should be confirmed by repeat testing. The classification and Diagnosis of Diabetes Diabetes Care 2021; 46: S19-S40. Current interpretive data was last revised 2022. Calcium 9.0 8.5 - 10.3 mg/dL [facility] Blood 04/24/2024 10:0 7 PM ORTHOPEDIC PHYSICIAN 04/24/2024 10:15 PM ORTHOPEDIC PHYSICIAN Nav WISE LAB BLOOD ORDERABLES Gail l Result Performing Organization Address [facility] Co de Phone Number [facility] [address] Department [place] [address] * Mycology (fungal) culture Wound Chest (04/24/2024 8:51 PM ORTHOPEDIC PHYSICIAN) Report Final Report: No fungus isolated Wound (Chest) 04/24/2024 8:5 1 PM ORTHOPEDIC PHYSICIAN 04/24/2024 8:52 PM ORTHOPEDIC PHYSICIAN Narrative [facility] - 05/23/2024 1:00 PM ORTHOPEDIC PHYSICIAN Superficial wound Mycology cultures are held for 4 weeks. Jaime Colin MD LAB MICROBIOLOGY - GENER AL ORDERABLES Final Result Performing Organization Address [facility] Co de Phone Number [facility] [address] Department [place] [address] * Mycobacteriology (AFB) culture and acid-fast stain Wound Chest (04/24/2024 8:51 PM ORTHOPEDIC PHYSICIAN) Direct Specimen Exam Stain: Concentrated smear: No Acid Fast Bacillus Seen Report Final Report: No Acid Fast Bacilli isolated [facility] Wound (Chest) 04/24/2024 8:5 1 PM ORTHOPEDIC PHYSICIAN 04/24/2024 8:52 PM ORTHOPEDIC PHYSICIAN Narrative [facility] - 06/20/2024 1:00 PM CDT Superficial wound Mycobacteriology (AFB) cultures are held for 8 weeks. Jaime Colin MD LAB MICROBIOLOGY - GENER AL ORDERABLES Final Result Performing Organization Address [facility] Co de Phone Number [facility] [address] Department [place] [address] * (ABNORMAL) Aerobic and anaerobic culture and gram stain Wound Chest (04/24/2024 8:51 PM ORTHOPEDIC PHYSICIAN) Direct Specimen Exam Stain: Many polymorphonuclear leukocytes seen. No organisms seen. Report Final Report: Light growth of: Staphylococcus epidermidis Susceptibility not performed on this isolate (.) [facility] Organism STAPHYLOCOCCUS EPIDERMIDIS [facility] Wound (Chest) 04/24/2024 8:5 1 PM ORTHOPEDIC PHYSICIAN 04/24/2024 8:52 PM ORTHOPEDIC PHYSICIAN Narrative [facility] - 04/28/2024 10:41 AM ORTHOPEDIC PHYSICIAN Superficial wound Jaime Colin MD LAB MICROBIOLOGY - GENER AL ORDERABLES Final Result Performing Organization Address [facility] Co de Phone Number [facility] [address] Department [place] [address] * XR Chest 1 View - Portable (04/24/2024 8:22 PM ORTHOPEDIC PHYSICIAN) Anatomical Region Laterality Modality Body, Chest N/A Computed Radiogr aphy 04/25/2024 12:0 2 PM ORTHOPEDIC PHYSICIAN Impressions 04/25/2024 12:02 PM ORTHOPEDIC PHYSICIAN Comparison to the 4:53 PM. There are new median sternotomy wires and thoracic drains after cardiac surgery. Left basilar atelectasis and new opacities in the right lung are noted. The heart size is unchanged. There may be a tiny left pleural effusion. No pneumothorax is identified. Electronically signed by: Jake Brice M.D. Narrative 04/25/2024 12:02 PM ORTHOPEDIC PHYSICIAN EXAMINATION: 1 view chest radiograph Procedure Note Jake Brice MD - 04/25/2024 EXAMINATION: 1 view chest radiograph IMPRESSION: Comparison to the 4:53 PM. There are new median sternotomy wires and thoracic drains after cardiac surgery. Left basilar atelectasis and new opacities in the right lung are noted. The heart size is unchanged. There may be a tiny left pleural effusion. No pneumothorax is identified. Electronically signed by: Jake Brice M.D. Nav WISE IMG XR PROCEDURES Final R esult * AZ AN PROCEDURE PLACEHOLDER (04/24/2024 6:30 PM ORTHOPEDIC PHYSICIAN) Tommie Garner MD - 04/24/2024 6:30 PM ORTHOPEDIC PHYSICIAN Tommie Masters MD 04/24/2024 6:30 PM Peripheral IV Catheter Patient location: OR Staff: Placed by: Anesthesiologist: Tommie Masters MD Preprocedure prep: Prep solution: alcohol PPE: gloves and provider hat/mask PIV line: Laterality: left Site: antecubital Catheter size: 18 g Technique: direct visualization Procedure details: good blood return and occlusive dressing applied Assessment: Events: patient tolerated procedure well with no complications Additional comments: Ultrasound assist Tommie Masters MD ANESTHESIA ORDERABLES Final Result * AZ AN ELECTIVE ENDOTRACHEAL AIRWAY, AZ AN PROCEDURE PLACEHOLDER (04/24/2024 6:28 PM ORTHOPEDIC PHYSICIAN) Tommie Garner MD - 04/24/2024 6:28 PM ORTHOPEDIC PHYSICIAN Tommie Masters MD 04/24/2024 6:29 PM Airway Patient location: OR Urgency: elective Indications for airway management: anesthesia Difficult airway: no Staff: Placed by: Anesthesiologist: Tommie Masters MD Emergent airway documentation: Risks and benefits discussed: yes Consent obtained: yes Consent given by: patient Airway prep: Preoxygenated: yes Patient position: sniffing Mask difficulty assessment: 2 - vent by mask + OA or adjuvant Spontaneous ventilation during airway: absent Sedation level during airway: GA Final airway details: Final airway type: endotracheal airway Tube type: ETT ETT size: 8.0 mm Cuffed: yes Technique used for successful ETT placement: video laryngoscopy Devices/Methods used in placement: intubating stylet Insertion site: oral Video blade type: Giggem Blade size: 3 Cormack-Lehane (video): grade I - full view of glottis Cuff inflated with: air ETT to gums: 23 cm Placement verified by: auscultation and CO2 detection Airway secured with: silk tape Number of attempts: 1 us Tommie Masters MD ANESTHESIA ORDERABLES Final Result * eGFR (04/24/2024 4:58 PM ORTHOPEDIC PHYSICIAN) eGFR 88 >=60 mL/min/1. 73 m2 Comment: Interpretive Data Reference Interval Normal >/= 90 mL/min/1.73m2 Mildly decreased* 60 - 89 mL/min/1.73m2 Mildly to moderately decreased 45 - 59 mL/min/1.73m2 Moderately to severely decreased 30 - 44 mL/min/1.73m2 Severely decreased 15 - 29 mL/min/1.73m2 Kidney Failure < 15 mL/min/1.73m2 *Relative to young adult level Estimated glomerular filtration rate is determined by the 2020 CKD-EPI equation recommended by the National Kidney Foundation (A Unifying Approach to GFR Estimation: Recommendations of the NKF-ASK Task Force on Reassessing the Inclusion of Race in Diagnosing Kidney Disease, JASN 2020). The CKD-EPI equation should not be used for patients with unstable renal function and has not been validated in children and those over 70. Current interpretive data was last reviewed 2021. Blood 04/24/2024 4:58 PM ORTHOPEDIC PHYSICIAN 04/24/2024 5:06 PM ORTHOPEDIC PHYSICIAN us Davy Hauser MD LAB BLOOD ORDERABLES Final R esult [facility] [address] Department of Laboratories [place], [place] [id number] * (ABNORMAL) Differential, auto (04/24/2024 4:58 PM ORTHOPEDIC PHYSICIAN) Neutrophil abs 8.7(H) 1.5 - 6.5 K/cumm Imm gran abs 0.2(H) 0.0 - 0.1 K/cumm [facility] Lymphocyte abs 1.4 0.8 - 3.3 K/cumm [facility] Monocyte abs 1.1(H) 0.2 - 0.8 K/cumm [facility] Eosinophil abs 0.4 0.0 - 0.5 K/cumm [facility] Basophil abs 0.1 0.0 - 0.1 K/cumm [facility] Neutrophil pct 73.6 % [facility] Comment: Interpretive Data Percent cell count reference ranges are not reported, since discordance with absolute values may lead to misinterpretation of CBC data. Current Interpretive Data was last revised on 2017. Imm gran pct 1.3 % [facility] Comment: Interpretive Data Percent cell count reference ranges are not reported, since discordance with absolute values may lead to misinterpretation of CBC data. Current Interpretive Data was last revised on 2017. Lymphocyte pct 11.6 % [facility] Comment: Interpretive Data Percent cell count reference ranges are not reported, since discordance with absolute values may lead to misinterpretation of CBC data. Current Interpretive Data was last revised on 2017. Monocyte pct 9.4 % [facility] Comment: Interpretive Data Percent cell count reference ranges are not reported, since discordance with absolute values may lead to misinterpretation of CBC data. Current Interpretive Data was last revised on 2017. Eosinophil pct 3.7 % [facility] Comment: Interpretive Data Percent cell count reference ranges are not reported, since discordance with absolute values may lead to misinterpretation of CBC data. Current Interpretive Data was last revised on 2017. Basophil pct 0.4 % [facility] Comment: Interpretive Data Percent cell count reference ranges are not reported, since discordance with absolute values may lead to misinterpretation of CBC data. Current Interpretive Data was last revised on 2017. Blood 04/24/2024 4:5 8 PM ORTHOPEDIC PHYSICIAN 04/24/2024 5:06 PM ORTHOPEDIC PHYSICIAN us Davy Hauser MD LAB BLOOD ORDERABLES Final R esult [facility] [address] Department of Laboratories [place], [place] [phone] * (ABNORMAL) CBC with auto differential (04/24/2024 4:58 PM ORTHOPEDIC PHYSICIAN) WBC 11.8(H) 3.8 - 9.9 K/cumm Hgb 7.9(L) 13.0 - 17.5 g/dL [facility] Hct 25.5(L) 38.9 - 50.3 % [facility] Plt 398 150 - 400 K/cumm [facility] MPV 9.7 9.1 - 12.3 fL [facility] RBC 2.64(L) 4.30 - 5.80 M/cumm [facility] MCV 96.6(H) 81.3 - 96.4 fL [facility] MCH 29.9 27.1 - 33.3 pg [facility] MCHC 31.0(L) 32.3 - 35.7 g/dL [facility] RDW CV 14.5 11.1 - 14.9 % [facility] RDW SD 48.6(H) 35.7 - 48.1 fL [facility] NRBC abs 0.00 0.00 - 0.01 K/cumm [facility] Blood 04/24/2024 4:58 PM ORTHOPEDIC PHYSICIAN 04/24/2024 5:06 PM ORTHOPEDIC PHYSICIAN us Davy Hauser MD LAB BLOOD ORDERABLES Final R esult [facility] [address] [place] [place] [address] * Type and screen (04/24/2024 4:58 PM ORTHOPEDIC PHYSICIAN) ABO Rh O Positive Arvind, indirect Negative [facility] Blood 04/24/2024 4:58 PM ORTHOPEDIC PHYSICIAN 04/24/2024 5:10 PM ORTHOPEDIC PHYSICIAN us Melissa Erickson NP LAB BLOOD BANK TEST ORDER GINNA Final Result Performing Organization Address City/[facility]/ZIP Co de Phone Number [facility] [address] [employer] [place], [place] [phone] * (ABNORMAL) Hepatic function panel (04/24/2024 4:58 PM ORTHOPEDIC PHYSICIAN) Bilirubin, total 0.4 0.1 - 1.2 mg/dL Bilirubin, direct 0.2 0.1 - 0.3 mg/dL [facility] Protein, pl 7.4 6.5 - 8.5 g/dL [facility] Albumin 3.4(L) 3.5 - 5.0 g/dL [facility] Alk phos 39(L) 40 - 130 Units/L [facility] ALT 29 7 - 55 Units/L [facility] AST 27 10 - 50 Units/L [facility] Blood 04/24/2024 4:58 PM ORTHOPEDIC PHYSICIAN 04/24/2024 5:06 PM ORTHOPEDIC PHYSICIAN us Davy Hauser MD LAB BLOOD ORDERABLES Final R esult [facility] [address] Department [place] [address] * (ABNORMAL) Basic metabolic panel (04/24/2024 4:58 PM ORTHOPEDIC PHYSICIAN) Sodium 132(L) 135 - 145 mmol/L Potassium, pl 4.6 3.3 - 4.9 mmol/L [facility] Chloride 92(L) 97 - 110 mmol/L [facility] CO2 25 22 - 32 mmol/L [facility] Anion gap 15 2 - 15 mmol/L [facility] BUN 21 6 - 25 mg/dL [facility] Creatinine 0.98 0.80 - 1.30 mg/dL [facility] Glucose 103 70 - 199 mg/dL [facility] Comment: Interpretive Data Fasting glucose >/= 126 mg/dl is diagnostic for diabetes. Fasting is defined as no caloric intake for at least 8 hours. Fasting glucose between 100 mg/dl to 125 mg/dl is diagnostic of prediabetes. In a patient with classic symptoms of hyperglycemia or hyperglycemic crisis, a random glucose >/= 200 mg/dl is diagnostic for diabetes. In the absence of unequivocal hyperglycemia, results should be confirmed by repeat testing. The classification and Diagnosis of Diabetes Diabetes Care 2021; 46: S19-S40. Current interpretive data was last revised 2022. Calcium 9.3 8.5 - 10.3 mg/dL [facility] Blood 04/24/2024 4:58 PM ORTHOPEDIC PHYSICIAN 04/24/2024 5:06 PM ORTHOPEDIC PHYSICIAN us Davy Hauser MD LAB BLOOD ORDERABLES Final R esult [facility] [address] Department [place] [address] * XR Chest 1 Vw (04/24/2024 4:56 PM ORTHOPEDIC PHYSICIAN) Anatomical Region Laterality Modality Body, Chest N/A Computed Radiogr aphy 04/24/2024 5:09 PM ORTHOPEDIC PHYSICIAN Impressions 04/24/2024 5:09 PM ORTHOPEDIC PHYSICIAN Left pleural effusion with basal atelectasis, similar to prior study. Electronically signed by: Joe Martinez M.D. Narrative 04/24/2024 5:09 PM ORTHOPEDIC PHYSICIAN EXAMINATION: XR CHEST 1 VIEW HISTORY: Severe sinus drainage from sternal incision. 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 Right internal jugular central venous catheter no longer present. Heart size normal Small left pleural effusion and bibasilar subsegmental atelectasis present, similar to prior exams. Upper lung aeration is normal. Procedure Note Joe Martinez III, MD - 04/24/2024 EXAMINATION: XR CHEST 1 VIEW HISTORY: Severe sinus drainage from sternal incision. 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 Right internal jugular central venous catheter no longer present. Heart size normal Small left pleural effusion and bibasilar subsegmental atelectasis present, similar to prior exams. Upper lung aeration is normal. IMPRESSION: Left pleural effusion with basal atelectasis, similar to prior study. Electronically signed by: Joe Martinez M.D. us Davy Hauser MD IMG XR PROCEDURES Final Resu lt * Prepare RBC: 1 Units (04/24/2024 4:52 PM ORTHOPEDIC PHYSICIAN) Product code [id number] Unit Number [id number] 5-8 [facility] Product Blood Type OPOS [facility] Dispense Status RETURNED [facility] Blood 04/24/2024 4:52 PM ORTHOPEDIC PHYSICIAN Narrative [facility] - 04/28/2024 7:24 AM ORTHOPEDIC PHYSICIAN Specify Procedure:->cardiac surgery Are special requirements needed? (All products are leukoreduced and CMV- safe)- >No Date required:-20240424 LRRBC # of [id number] Reasons:-Hold for procedure (specify procedure)} us Melissa Erickson NP BLOOD BANK PRODUCT ORDERA BLES Final Result [facility] [address] Department [place] [address] * XR Chest 1 View - Portable - in AM (04/21/2024 6:06 AM ORTHOPEDIC PHYSICIAN) Anatomical Region Laterality Modality Body, Chest N/A Computed Radiogr aphy 04/21/2024 8:54 AM ORTHOPEDIC PHYSICIAN Impressions 04/21/2024 8:54 AM ORTHOPEDIC PHYSICIAN A right internal jugular central venous catheter terminates at the superior vena cava. Median sternotomy wires are intact and aligned. The lung volumes are small bilaterally with moderate bibasilar atelectasis and a small left pleural effusion, not significantly changed. No pneumothorax is identified. The cardiomediastinal silhouette is unchanged. Electronically signed by: Cj Leger M.D. Narrative 04/21/2024 8:54 AM ORTHOPEDIC PHYSICIAN EXAMINATION: XR CHEST 1 VIEW COMPARISON: 04/20/2024 5:50 AM Procedure Note Cj Leger MD PhD - 04/21/2024 EXAMINATION: XR CHEST 1 VIEW COMPARISON: 04/20/2024 5:50 AM IMPRESSION: A right internal jugular central venous catheter terminates at the superior vena cava. Median sternotomy wires are intact and aligned. The lung volumes are small bilaterally with moderate bibasilar atelectasis and a small left pleural effusion, not significantly changed. No pneumothorax is identified. The cardiomediastinal silhouette is unchanged. Electronically signed by: Cj Leger M.D. Georgia Reddy NP IMG XR PROCEDURES Final Result * eGFR (04/21/2024 3:36 AM ORTHOPEDIC PHYSICIAN) Pathologist [facility] eGFR 88 >=60 mL/min/1. 73 m2 Comment: Interpretive Data Reference Interval Normal >/= 90 mL/min/1.73m2 Mildly decreased* 60 - 89 mL/min/1.73m2 Mildly to moderately decreased 45 - 59 mL/min/1.73m2 Moderately to severely decreased 30 - 44 mL/min/1.73m2 Severely decreased 15 - 29 mL/min/1.73m2 Kidney Failure < 15 mL/min/1.73m2 *Relative to young adult level Estimated glomerular filtration rate is determined by the 2020 CKD-EPI equation recommended by the National Kidney Foundation (A Unifying Approach to GFR Estimation: Recommendations of the NKF-ASK Task Force on Reassessing the Inclusion of Race in Diagnosing Kidney Disease, JASN 2020). The CKD-EPI equation should not be used for patients with unstable renal function and has not been validated in children and those over 70. Current interpretive data was last reviewed 2021. Blood 04/21/2024 3:36 AM ORTHOPEDIC PHYSICIAN 04/21/2024 3:36 AM ORTHOPEDIC PHYSICIAN Georgia Reddy NP LAB BLOOD ORDERABLES Fin al Result [facility] [address] [place] [address] * (ABNORMAL) CBC without differential (04/21/2024 3:36 AM ORTHOPEDIC PHYSICIAN) [facility] WBC 7.8 3.8 - 9.9 K/cumm Hgb 7.0(L) 13.0 - 17.5 g/dL [facility] Hct 22.6(L) 38.9 - 50.3 % [facility] Plt 214 150 - 400 K/cumm [facility] MPV 10.8 9.1 - 12.3 fL [facility] RBC 2.38(L) 4.30 - 5.80 M/cumm [facility] MCV 95.0 81.3 - 96.4 fL [facility] MCH 29.4 27.1 - 33.3 pg [facility] MCHC 31.0(L) 32.3 - 35.7 g/dL [facility] RDW CV 13.8 11.1 - 14.9 % [facility] RDW SD 46.0 35.7 - 48.1 fL [facility] NRBC abs 0.02(H) 0.00 - 0.01 K/cumm [facility] Blood 04/21/2024 3:36 AM ORTHOPEDIC PHYSICIAN 04/21/2024 3:36 AM ORTHOPEDIC PHYSICIAN Georgia Reddy ANALYSIS REPORTING DEVELOPER LAB BLOOD ORDERABLES Fin al Result Performing Organization Address [facility] Co de Phone Number [facility] [address] Department [place] [employer] [place] [address] * Magnesium (04/21/2024 3:36 AM ORTHOPEDIC PHYSICIAN) [facility] Magnesium 1.9 1.4 - 2.5 mg/dL Blood 04/21/2024 3:36 AM ORTHOPEDIC PHYSICIAN 04/21/2024 3:36 AM ORTHOPEDIC PHYSICIAN Georgia Reddy ANALYSIS REPORTING DEVELOPER LAB BLOOD ORDERABLES Fin al Result Performing Organization Address City/[facility] Co de Phone Number [facility] [address] Department [place] [employer] [place] [address] * (ABNORMAL) Renal function panel (04/21/2024 3:36 AM ORTHOPEDIC PHYSICIAN) [facility] Sodium 141 135 - 145 mmol/L Potassium, pl 4.0 3.3 - 4.9 mmol/L [facility] Chloride 103 97 - 110 mmol/L [facility] CO2 28 22 - 32 mmol/L [facility] Anion gap 10 2 - 15 mmol/L [facility] BUN 27(H) 6 - 25 mg/dL [facility] Creatinine 0.99 0.80 - 1.30 mg/dL [facility] Glucose 114 70 - 199 mg/dL [facility] Comment: Interpretive Data Fasting glucose >/= 126 mg/dl is diagnostic for diabetes. Fasting is defined as no caloric intake for at least 8 hours. Fasting glucose between 100 mg/dl to 125 mg/dl is diagnostic of prediabetes. In a patient with classic symptoms of hyperglycemia or hyperglycemic crisis, a random glucose >/= 200 mg/dl is diagnostic for diabetes. In the absence of unequivocal hyperglycemia, results should be confirmed by repeat testing. The classification and Diagnosis of Diabetes Diabetes Care 202; 46: S19-S40. Current interpretive data was last revised 2022. Calcium 9.1 8.5 - 10.3 mg/dL [facility] Phosphorus, pl 4.2 2.3 - 4.5 mg/dL [facility] Albumin 3.3(L) 3.5 - 5.0 g/dL [facility] Blood 04/21/2024 3:36 AM ORTHOPEDIC PHYSICIAN 04/21/2024 3:36 AM ORTHOPEDIC PHYSICIAN Georgia Reddy ANALYSIS REPORTING DEVELOPER LAB BLOOD ORDERABLES Fin al Result [facility] [address] Department [place] [address] * XR Chest 1 View - Portable - in AM (04/20/2024 5:59 AM ORTHOPEDIC PHYSICIAN) Anatomical Region Laterality Modality Body, Chest N/A Computed Radiogr aphy 04/20/2024 9:03 AM ORTHOPEDIC PHYSICIAN Impressions 04/20/2024 12:27 PM ORTHOPEDIC PHYSICIAN Right internal jugular central venous catheter tip overlies superior cavoatrial junction. Median sternotomy wires are aligned and intact. Unchanged small left pleural effusion with associated left basilar atelectasis. Unchanged mild right basilar atelectasis. No pneumothorax. Cardiomediastinal silhouette is stable. Dictated by: Darrius Allen MD The radiology attending physician has personally reviewed this study, and had reviewed and/or edited this written report and agrees with it. Electronically signed by: Andrea Godinez M.D. Narrative 04/20/2024 12:27 PM ORTHOPEDIC PHYSICIAN EXAMINATION: XR CHEST 1 VIEW HISTORY: pleural effusion COMPARISON: 04/19/2024 Procedure Note Andrea Godinez MD - 04/20/2024 EXAMINATION: XR CHEST 1 VIEW HISTORY: pleural effusion COMPARISON: 04/19/2024 IMPRESSION: Right internal jugular central venous catheter tip overlies superior cavoatrial junction. Median sternotomy wires are aligned and intact. Unchanged small left pleural effusion with associated left basilar atelectasis. Unchanged mild right basilar atelectasis. No pneumothorax. Cardiomediastinal silhouette is stable. Dictated by: Darrius Allen MD The radiology attending physician has personally reviewed this study, and had reviewed and/or edited this written report and agrees with it. Electronically signed by: Andrea Godinez M.D. Georgia Reddy ANALYSIS REPORTING DEVELOPER IMG XR PROCEDURES Final Result * eGFR (04/20/2024 4:40 AM ORTHOPEDIC PHYSICIAN) eGFR 89 >=60 mL/min/1. 73 m2 Comment: Interpretive Data Reference Interval Normal >/= 90 mL/min/1.73m2 Mildly decreased* 60 - 89 mL/min/1.73m2 Mildly to moderately decreased 45 - 59 mL/min/1.73m2 Moderately to severely decreased 30 - 44 mL/min/1.73m2 Severely decreased 15 - 29 mL/min/1.73m2 Kidney Failure < 15 mL/min/1.73m2 *Relative to young adult level Estimated glomerular filtration rate is determined by the 2020 CKD-EPI equation recommended by the National Kidney Foundation (A Unifying Approach to GFR Estimation: Recommendations of the NKF-ASK Task Force on Reassessing the Inclusion of Race in Diagnosing Kidney Disease, JASN 2020). The CKD-EPI equation should not be used for patients with unstable renal function and has not been validated in children and those over 70. Current interpretive data was last reviewed 2021. Blood 04/20/2024 4:40 AM ORTHOPEDIC PHYSICIAN 04/20/2024 4:40 AM ORTHOPEDIC PHYSICIAN Georgia Reddy ANALYSIS REPORTING DEVELOPER LAB BLOOD ORDERABLES Fin al Result Performing Organization Address City/[facility]/ZIP Co de Phone Number [facility] [address] [place] [address] * (ABNORMAL) CBC without differential (04/20/2024 4:40 AM ORTHOPEDIC PHYSICIAN) WBC 7.3 3.8 - 9.9 K/cumm Hgb 6.8(L) 13.0 - 17.5 g/dL [facility] Hct 20.8(L) 38.9 - 50.3 % [facility] Plt 159 150 - 400 K/cumm [facility] MPV 11.1 9.1 - 12.3 fL [facility] RBC 2.22(L) 4.30 - 5.80 M/cumm [facility] MCV 93.7 81.3 - 96.4 fL [facility] MCH 30.6 27.1 - 33.3 pg [facility] MCHC 32.7 32.3 - 35.7 g/dL [facility] RDW CV 13.7 11.1 - 14.9 % [facility] RDW SD 46.3 35.7 - 48.1 fL [facility] NRBC abs 0.00 0.00 - 0.01 K/cumm [facility] Blood 04/20/2024 4:40 AM ORTHOPEDIC PHYSICIAN 04/20/2024 4:40 AM ORTHOPEDIC PHYSICIAN Georgia Reddy ANALYSIS REPORTING DEVELOPER LAB BLOOD ORDERABLES Fin al Result [facility] [address] Department [place] [address] * Magnesium (04/20/2024 4:40 AM ORTHOPEDIC PHYSICIAN) Pathologist [facility] Magnesium 2.0 1.4 - 2.5 mg/dL Blood 04/20/2024 4:40 AM ORTHOPEDIC PHYSICIAN 04/20/2024 4:40 AM ORTHOPEDIC PHYSICIAN Georgia Reddy ANALYSIS REPORTING DEVELOPER LAB BLOOD ORDERABLES Fin al Result Performing Organization Address [facility]/ZIP Co de Phone Number [facility] [address] Department [place] [address] * (ABNORMAL) Renal function panel (04/20/2024 4:40 AM ORTHOPEDIC PHYSICIAN) Pathologist [facility] Sodium 140 135 - 145 mmol/L Potassium, pl 3.8 3.3 - 4.9 mmol/L [facility] Chloride 104 97 - 110 mmol/L [facility] CO2 26 22 - 32 mmol/L [facility] Anion gap 10 2 - 15 mmol/L [facility] BUN 32(H) 6 - 25 mg/dL [facility] Creatinine 0.98 0.80 - 1.30 mg/dL [facility] Glucose 111 70 - 199 mg/dL [facility] Comment: Interpretive Data Fasting glucose >/= 126 mg/dl is diagnostic for diabetes. Fasting is defined as no caloric intake for at least 8 hours. Fasting glucose between 100 mg/dl to 125 mg/dl is diagnostic of prediabetes. In a patient with classic symptoms of hyperglycemia or hyperglycemic crisis, a random glucose >/= 200 mg/dl is diagnostic for diabetes. In the absence of unequivocal hyperglycemia, results should be confirmed by repeat testing. The classification and Diagnosis of Diabetes Diabetes Care 2021; 46: S19-S40. Current interpretive data was last revised 2022. Calcium 8.8 8.5 - 10.3 mg/dL [facility] Phosphorus, pl 3.9 2.3 - 4.5 mg/dL [facility] Albumin 3.0(L) 3.5 - 5.0 g/dL [facility] Blood 04/20/2024 4:40 AM ORTHOPEDIC PHYSICIAN 04/20/2024 4:40 AM ORTHOPEDIC PHYSICIAN Georgia Reddy ANALYSIS REPORTING DEVELOPER LAB BLOOD ORDERABLES Fin al Result Performing Organization Address City/[facility]/ZIP Co de Phone Number [facility] [address] Department [place] [address] * XR Chest 1 View - Portable - in AM (04/19/2024 5:58 AM ORTHOPEDIC PHYSICIAN) Anatomical Region Laterality Modality Body, Chest N/A Computed Radiogr aphy 04/19/2024 8:34 AM ORTHOPEDIC PHYSICIAN Impressions 04/19/2024 8:34 AM ORTHOPEDIC PHYSICIAN Comparison 04/18/2024 6:09 AM. Median sternotomy wires are aligned and intact. Right internal jugular central venous catheter tip overlies the superior vena cava. Moderate left retrocardiac opacity compatible with atelectasis and small left pleural effusion again seen. Mild right base atelectasis again noted. No pneumothorax seen. Cardiomediastinal silhouette stable. Electronically signed by: Bronson Aragon M.D. Narrative 04/19/2024 8:34 AM ORTHOPEDIC PHYSICIAN EXAMINATION: Chest 1 view Procedure Note Bronson Aragon MD - 04/19/2024 EXAMINATION: Chest 1 view IMPRESSION: Comparison 04/18/2024 6:09 AM. Median sternotomy wires are aligned and intact. Right internal jugular central venous catheter tip overlies the superior vena cava. Moderate left retrocardiac opacity compatible with atelectasis and small left pleural effusion again seen. Mild right base atelectasis again noted. No pneumothorax seen. Cardiomediastinal silhouette stable. Electronically signed by: Bronson Aragon M.D. Georgia Reddy NP IMG XR PROCEDURES Final Result * eGFR (04/19/2024 12:27 AM ORTHOPEDIC PHYSICIAN) eGFR 78 >=60 mL/min/1. 73 m2 Comment: Interpretive Data Reference Interval Normal >/= 90 mL/min/1.73m2 Mildly decreased* 60 - 89 mL/min/1.73m2 Mildly to moderately decreased 45 - 59 mL/min/1.73m2 Moderately to severely decreased 30 - 44 mL/min/1.73m2 Severely decreased 15 - 29 mL/min/1.73m2 Kidney Failure < 15 mL/min/1.73m2 *Relative to young adult level Estimated glomerular filtration rate is determined by the 2020 CKD-EPI equation recommended by the National Kidney Foundation (A Unifying Approach to GFR Estimation: Recommendations of the NKF-ASK Task Force on Reassessing the Inclusion of Race in Diagnosing Kidney Disease, JASN 2020). The CKD-EPI equation should not be used for patients with unstable renal function and has not been validated in children and those over 70. Current interpretive data was last reviewed 2021. Blood 04/19/2024 12:2 7 AM ORTHOPEDIC PHYSICIAN 04/19/2024 1:52 AM ORTHOPEDIC PHYSICIAN us Georgia Reddy ANALYSIS REPORTING DEVELOPER LAB BLOOD ORDERABLES Fin al Result [facility] [address] Department [place] [address] * (ABNORMAL) CBC without differential (04/19/2024 12:27 AM ORTHOPEDIC PHYSICIAN) WBC 10.1(H) 3.8 - 9.9 K/cumm Hgb 7.2(L) 13.0 - 17.5 g/dL [facility] Hct 22.4(L) 38.9 - 50.3 % [facility] Plt 137(L) 150 - 400 K/cumm [facility] MPV 11.5 9.1 - 12.3 fL [facility] RBC 2.38(L) 4.30 - 5.80 M/cumm [facility] MCV 94.1 81.3 - 96.4 fL [facility] MCH 30.3 27.1 - 33.3 pg [facility] MCHC 32.1(L) 32.3 - 35.7 g/dL [facility] RDW CV 14.4 11.1 - 14.9 % [facility] RDW SD 48.4(H) 35.7 - 48.1 fL [facility] NRBC abs 0.02(H) 0.00 - 0.01 K/cumm [facility] Blood 04/19/2024 12:2 7 AM ORTHOPEDIC PHYSICIAN 04/19/2024 1:52 AM ORTHOPEDIC PHYSICIAN Georgia Reddy ANALYSIS REPORTING DEVELOPER LAB BLOOD ORDERABLES Fin al Result Performing Organization Address [facility] Co de Phone Number [facility] [address] Department [place] [address] * Type and screen (04/19/2024 12:27 AM ORTHOPEDIC PHYSICIAN) [facility] Arvind, indirect Negative ABO Rh O Positive [facility] Blood 04/19/2024 12:2 7 AM ORTHOPEDIC PHYSICIAN 04/19/2024 12:57 AM ORTHOPEDIC PHYSICIAN Narrative [facility] - 04/19/2024 1:52 AM ORTHOPEDIC PHYSICIAN Has the patient had Daratumumab or Isatuximab in the past 6 months?->Unknown Georgia Reddy NP LAB BLOOD BANK TEST ORDE RABLES Final Result Performing Organization Address [facility] Co de Phone Number [facility] [address] [place] [address] * Magnesium (04/19/2024 12:27 AM ORTHOPEDIC PHYSICIAN) [facility] Magnesium 2.0 1.4 - 2.5 mg/dL Blood 04/19/2024 12:2 7 AM ORTHOPEDIC PHYSICIAN 04/19/2024 1:52 AM ORTHOPEDIC PHYSICIAN Georgia Reddy ANALYSIS REPORTING DEVELOPER LAB BLOOD ORDERABLES Fin al Result Performing Organization Address [facility] Co de Phone Number [facility] [address] [place] [address] * (ABNORMAL) Renal function panel (04/19/2024 12:27 AM ORTHOPEDIC PHYSICIAN) [facility] Sodium 142 135 - 145 mmol/L Potassium, pl 4.0 3.3 - 4.9 mmol/L [facility] Chloride 105 97 - 110 mmol/L [facility] CO2 25 22 - 32 mmol/L [facility] Anion gap 12 2 - 15 mmol/L [facility] BUN 34(H) 6 - 25 mg/dL [facility] Creatinine 1.09 0.80 - 1.30 mg/dL [facility] Glucose 111 70 - 199 mg/dL [facility] Comment: Interpretive Data Fasting glucose >/= 126 mg/dl is diagnostic for diabetes. Fasting is defined as no caloric intake for at least 8 hours. Fasting glucose between 100 mg/dl to 125 mg/dl is diagnostic of prediabetes. In a patient with classic symptoms of hyperglycemia or hyperglycemic crisis, a random glucose >/= 200 mg/dl is diagnostic for diabetes. In the absence of unequivocal hyperglycemia, results should be confirmed by repeat testing. The classification and Diagnosis of Diabetes Diabetes Care 2021; 46: S19-S40. Current interpretive data was last revised 2022. Calcium 9.0 8.5 - 10.3 mg/dL [facility] Phosphorus, pl 4.8(H) 2.3 - 4.5 mg/dL [facility] Albumin 3.2(L) 3.5 - 5.0 g/dL [facility] Blood 04/19/2024 12:2 7 AM ORTHOPEDIC PHYSICIAN 04/19/2024 1:52 AM ORTHOPEDIC PHYSICIAN us Georgia Reddy NP LAB BLOOD ORDERABLES Fin al Result [facility] [address] Department [place] [address] * POCT glucose (04/18/2024 7:49 PM ORTHOPEDIC PHYSICIAN) [facility] Signature Glucose, POC 112 70 - 199 mg/dL Comment: For Glucose values <35 mg/dl when Hematocrit is >60 mg/dl,the test may not accurately detect significant hypoglycemia,and testing in the Laboratory should be considered if clinically indicated. Blood 04/18/2024 7:49 PM ORTHOPEDIC PHYSICIAN 04/18/2024 7:49 PM ORTHOPEDIC PHYSICIAN us Jaime Colin MD LAB POCT ORDERABLES - DE VICE Final Result Performing Organization Address [facility] de Phone Number [facility] [address] [facility] [employer] [place] [address] * POCT glucose (04/18/2024 4:44 PM ORTHOPEDIC PHYSICIAN) Glucose, POC 120 70 - 199 mg/dL Comment: For Glucose values <35 mg/dl when Hematocrit is >60 mg/dl,the test may not accurately detect significant hypoglycemia,and testing in the Laboratory should be considered if clinically indicated. Blood 04/18/2024 4:44 PM ORTHOPEDIC PHYSICIAN 04/18/2024 4:44 PM ORTHOPEDIC PHYSICIAN Jaime Colin MD LAB POCT ORDERABLES - DE VICE Final Result Performing Organization Address [facility] de Phone Number [facility] [address] [facility] [employer] [place] [address] * POCT glucose (04/18/2024 12:11 PM ORTHOPEDIC PHYSICIAN) Glucose, POC 158 70 - 199 mg/dL Comment: For Glucose values <35 mg/dl when Hematocrit is >60 mg/dl,the test may not accurately detect significant hypoglycemia,and testing in the Laboratory should be considered if clinically indicated. Blood 04/18/2024 12:1 1 PM ORTHOPEDIC PHYSICIAN 04/18/2024 12:11 PM ORTHOPEDIC PHYSICIAN Jaime Colin MD LAB POCT ORDERABLES - DE VICE Final Result Performing Organization Address [facility] Co de Phone Number [facility] [address] [facility] [employer] [place] [address] * XR Chest 1 View - Portable - in AM (04/18/2024 6:20 AM ORTHOPEDIC PHYSICIAN) Anatomical Region Laterality Modality Body, Chest N/A Computed Radiogr aphy 04/18/2024 7:05 AM ORTHOPEDIC PHYSICIAN Impressions 04/18/2024 7:05 AM ORTHOPEDIC PHYSICIAN Median sternotomy wires are unchanged. Right internal jugular central venous catheter tip projects over the superior vena cava. Moderate left basilar and mild right basilar atelectasis, not significantly changed. Small left pleural effusion is stable. No pneumothorax. Heart and mediastinal contours are stable. Electronically signed by: Carlos Tang MD, PHD Narrative 04/18/2024 7:05 AM ORTHOPEDIC PHYSICIAN EXAMINATION: XR CHEST 1 VIEW HISTORY: pleural effusion COMPARISON: 04/17/2024 Procedure Note Carlos Tang MD PhD - 04/18/2024 EXAMINATION: XR CHEST 1 VIEW HISTORY: pleural effusion COMPARISON: 04/17/2024 IMPRESSION: Median sternotomy wires are unchanged. Right internal jugular central venous catheter tip projects over the superior vena cava. Moderate left basilar and mild right basilar atelectasis, not significantly changed. Small left pleural effusion is stable. No pneumothorax. Heart and mediastinal contours are stable. Electronically signed by: Carlos Tang MD, PHD Georgia Reddy ANALYSIS REPORTING DEVELOPER IMG XR PROCEDURES Final Result * POCT glucose (04/18/2024 5:55 AM ORTHOPEDIC PHYSICIAN) Glucose, POC 133 70 - 199 mg/dL Comment: For Glucose values <35 mg/dl when Hematocrit is >60 mg/dl,the test may not accurately detect significant hypoglycemia,and testing in the Laboratory should be considered if clinically indicated. Blood 04/18/2024 5:55 AM ORTHOPEDIC PHYSICIAN 04/18/2024 5:55 AM ORTHOPEDIC PHYSICIAN us Jaime Colin MD LAB POCT ORDERABLES - DE VICE Final Result [facility] [address] Department [place] [address] * POCT glucose (04/18/2024 3:11 AM ORTHOPEDIC PHYSICIAN) Glucose, POC 121 70 - 199 mg/dL Comment: For Glucose values <35 mg/dl when Hematocrit is >60 mg/dl,the test may not accurately detect significant hypoglycemia,and testing in the Laboratory should be considered if clinically indicated. Blood 04/18/2024 3:11 AM ORTHOPEDIC PHYSICIAN 04/18/2024 3:11 AM ORTHOPEDIC PHYSICIAN us Jaime Colin MD LAB POCT ORDERABLES - DE VICE Final Result Performing Organization Address [facility]/ZIP Co de Phone Number [facility] [address] Department [employer] [place], [place] [id number] * eGFR (04/18/2024 1:22 AM ORTHOPEDIC PHYSICIAN) eGFR 84 >=60 mL/min/1. 73 m2 Comment: Interpretive Data Reference Interval Normal >/= 90 mL/min/1.73m2 Mildly decreased* 60 - 89 mL/min/1.73m2 Mildly to moderately decreased 45 - 59 mL/min/1.73m2 Moderately to severely decreased 30 - 44 mL/min/1.73m2 Severely decreased 15 - 29 mL/min/1.73m2 Kidney Failure < 15 mL/min/1.73m2 *Relative to young adult level Estimated glomerular filtration rate is determined by the 2020 CKD-EPI equation recommended by the National Kidney Foundation (A Unifying Approach to GFR Estimation: Recommendations of the NKF-ASK Task Force on Reassessing the Inclusion of Race in Diagnosing Kidney Disease, JASN 2020). The CKD-EPI equation should not be used for patients with unstable renal function and has not been validated in children and those over 70. Current interpretive data was last reviewed 2021. Blood 04/18/2024 1:22 AM ORTHOPEDIC PHYSICIAN 04/18/2024 1:38 AM ORTHOPEDIC PHYSICIAN us Georgia Reddy NP LAB BLOOD ORDERABLES Fin al Result Performing Organization Address City/[facility]/ZIP Co de Phone Number [facility] [address] Department [employer] [place], [place] [phone] * Calcium, ionized (04/18/2024 1:22 AM ORTHOPEDIC PHYSICIAN) Calcium, Ionized 4.99 4.50 - 5.10 mg/dL Blood 04/18/2024 1:22 AM ORTHOPEDIC PHYSICIAN 04/18/2024 1:32 AM ORTHOPEDIC PHYSICIAN us Georgia Reddy NP LAB BLOOD ORDERABLES Fin al Result Performing Organization Address City/[facility]/ZIP Co de Phone Number [facility] [address] Department [place] [address] * (ABNORMAL) Iron profile w/ IBC (04/18/2024 1:22 AM ORTHOPEDIC PHYSICIAN) [facility] Iron 12(L) 50 - 150 mcg/dL TIBC 139(L) 250 - 400 mcg/dL [facility] Transferrin saturation 9(L) 20 - 50 % [facility] Blood 04/18/2024 1:22 AM ORTHOPEDIC PHYSICIAN 04/18/2024 1:38 AM ORTHOPEDIC PHYSICIAN Jaime Colin MD LAB BLOOD ORDERABLES Fin al Result Performing Organization Address [facility] Co de Phone Number [facility] [address] Department [place] [address] * (ABNORMAL) CBC without differential (04/18/2024 1:22 AM ORTHOPEDIC PHYSICIAN) [facility] WBC 8.9 3.8 - 9.9 K/cumm Hgb 7.1(L) 13.0 - 17.5 g/dL [facility] Hct 22.2(L) 38.9 - 50.3 % [facility] Plt 101(L) 150 - 400 K/cumm [facility] MPV 11.2 9.1 - 12.3 fL [facility] RBC 2.40(L) 4.30 - 5.80 M/cumm [facility] MCV 92.5 81.3 - 96.4 fL [facility] MCH 29.6 27.1 - 33.3 pg [facility] MCHC 32.0(L) 32.3 - 35.7 g/dL [facility] RDW CV 14.6 11.1 - 14.9 % [facility] RDW SD 49.5(H) 35.7 - 48.1 fL [facility] NRBC abs 0.00 0.00 - 0.01 K/cumm [facility] Blood 04/18/2024 1:22 AM ORTHOPEDIC PHYSICIAN 04/18/2024 1:38 AM ORTHOPEDIC PHYSICIAN Georgia Reddy ANALYSIS REPORTING DEVELOPER LAB BLOOD ORDERABLES Fin al Result Performing Organization Address [facility] Co de Phone Number [facility] [address] [facility] [employer] [place] [address] * Magnesium (04/18/2024 1:22 AM ORTHOPEDIC PHYSICIAN) [facility] Magnesium 2.2 1.4 - 2.5 mg/dL Blood 04/18/2024 1:22 AM ORTHOPEDIC PHYSICIAN 04/18/2024 1:38 AM ORTHOPEDIC PHYSICIAN Georgia Reddy ANALYSIS REPORTING DEVELOPER LAB BLOOD ORDERABLES Fin al Result Performing Organization Address [facility] de Phone Number [facility] [address] [place] [employer] [place] [address] * (ABNORMAL) Renal function panel (04/18/2024 1:22 AM ORTHOPEDIC PHYSICIAN) [facility] Sodium 145 135 - 145 mmol/L Potassium, pl 4.1 3.3 - 4.9 mmol/L [facility] Chloride 111(H) 97 - 110 mmol/L [facility] CO2 25 22 - 32 mmol/L [facility] Anion gap 9 2 - 15 mmol/L [facility] BUN 35(H) 6 - 25 mg/dL [facility] Creatinine 1.03 0.80 - 1.30 mg/dL [facility] Glucose 112 70 - 199 mg/dL [facility] Comment: Interpretive Data Fasting glucose >/= 126 mg/dl is diagnostic for diabetes. Fasting is defined as no caloric intake for at least 8 hours. Fasting glucose between 100 mg/dl to 125 mg/dl is diagnostic of prediabetes. In a patient with classic symptoms of hyperglycemia or hyperglycemic crisis, a random glucose >/= 200 mg/dl is diagnostic for diabetes. In the absence of unequivocal hyperglycemia, results should be confirmed by repeat testing. The classification and Diagnosis of Diabetes Diabetes Care 2021; 46: S19-S40. Current interpretive data was last revised 2022. Calcium 8.6 8.5 - 10.3 mg/dL [facility] Phosphorus, pl 3.4 2.3 - 4.5 mg/dL [facility] Albumin 3.0(L) 3.5 - 5.0 g/dL [facility] Blood 04/18/2024 1:22 AM ORTHOPEDIC PHYSICIAN 04/18/2024 1:38 AM ORTHOPEDIC PHYSICIAN Georgia Reddy NP LAB BLOOD ORDERABLES Fin al Result Performing Organization Address City/[facility]/ZIP Co de Phone Number [facility] [address] [employer] [place] [address] * POCT glucose (04/18/2024 1:17 AM ORTHOPEDIC PHYSICIAN) Glucose, POC 130 70 - 199 mg/dL Comment: For Glucose values <35 mg/dl when Hematocrit is >60 mg/dl,the test may not accurately detect significant hypoglycemia,and testing in the Laboratory should be considered if clinically indicated. Blood 04/18/2024 1:17 AM ORTHOPEDIC PHYSICIAN 04/18/2024 1:17 AM ORTHOPEDIC PHYSICIAN Jaime Colin MD LAB POCT ORDERABLES - DE VICE Final Result Performing Organization Address City/[facility]/ZIP Co de Phone Number [facility] [address] [place] [place] [address] * POCT glucose (04/17/2024 11:42 PM ORTHOPEDIC PHYSICIAN) Glucose, POC 118 70 - 199 mg/dL Comment: For Glucose values <35 mg/dl when Hematocrit is >60 mg/dl,the test may not accurately detect significant hypoglycemia,and testing in the Laboratory should be considered if clinically indicated. Blood 04/17/2024 11:4 2 PM ORTHOPEDIC PHYSICIAN 04/17/2024 11:42 PM ORTHOPEDIC PHYSICIAN Jaime Colin MD LAB POCT ORDERABLES - DE VICE Final Result Performing Organization Address [facility] Phone Number [facility] [address] [facility] [employer] [place], [place] [phone] * POCT glucose (04/17/2024 9:38 PM ORTHOPEDIC PHYSICIAN) Glucose, POC 97 70 - 199 mg/dL Comment: For Glucose values <35 mg/dl when Hematocrit is >60 mg/dl,the test may not accurately detect significant hypoglycemia,and testing in the Laboratory should be considered if clinically indicated. Blood 04/17/2024 9:38 PM ORTHOPEDIC PHYSICIAN 04/17/2024 9:38 PM ORTHOPEDIC PHYSICIAN Jaime Colin MD LAB POCT ORDERABLES - DE VICE Final Result Performing Organization Address [facility] de Phone Number [facility] [address] [facility] [employer] [place], [place] [phone] * POCT glucose (04/17/2024 7:49 PM ORTHOPEDIC PHYSICIAN) Glucose, POC 116 70 - 199 mg/dL Comment: For Glucose values <35 mg/dl when Hematocrit is >60 mg/dl,the test may not accurately detect significant hypoglycemia,and testing in the Laboratory should be considered if clinically indicated. Blood 04/17/2024 7:49 PM ORTHOPEDIC PHYSICIAN 04/17/2024 7:49 PM ORTHOPEDIC PHYSICIAN Jaime Colin MD LAB POCT ORDERABLES - DE VICE Final Result Performing Organization Address [facility] Co de Phone Number [facility] [address] [facility] [employer] [place], [place] [phone] * (ABNORMAL) Hemoglobin and hematocrit (04/17/2024 5:48 PM ORTHOPEDIC PHYSICIAN) Hgb 7.2(L) 13.0 - 17.5 g/dL Hct 22.0(L) 38.9 - 50.3 % [facility] Blood 04/17/2024 5:48 PM ORTHOPEDIC PHYSICIAN 04/17/2024 6:04 PM ORTHOPEDIC PHYSICIAN Jaime Colin MD LAB BLOOD ORDERABLES Fin al Result Performing Organization Address [facility]/ZIP Co de Phone Number [facility] [address] Department [employer] [place], [place] [phone] * POCT glucose (04/17/2024 5:21 PM ORTHOPEDIC PHYSICIAN) Glucose, POC 106 70 - 199 mg/dL Comment: For Glucose values <35 mg/dl when Hematocrit is >60 mg/dl,the test may not accurately detect significant hypoglycemia,and testing in the Laboratory should be considered if clinically indicated. Blood 04/17/2024 5:21 PM ORTHOPEDIC PHYSICIAN 04/17/2024 5:21 PM ORTHOPEDIC PHYSICIAN Jaime Colin MD LAB POCT ORDERABLES - DE VICE Final Result Performing Organization Address [facility] Co de Phone Number [facility] [address] [employer] [place], [place] [phone] * Transfuse RBC (04/17/2024 3:50 PM ORTHOPEDIC PHYSICIAN) Blood Georgia Reddy NP BLOOD TRANSFUSION ORDERA BLES Final Result Performing Organization Address [facility]/ZIP Co de Phone Number [facility] [address] [place] [address] * POCT glucose (04/17/2024 2:26 PM ORTHOPEDIC PHYSICIAN) Glucose, POC 123 70 - 199 mg/dL Comment: For Glucose values <35 mg/dl when Hematocrit is >60 mg/dl,the test may not accurately detect significant hypoglycemia,and testing in the Laboratory should be considered if clinically indicated. Blood 04/17/2024 2:26 PM ORTHOPEDIC PHYSICIAN 04/17/2024 2:26 PM ORTHOPEDIC PHYSICIAN Jaime Colin MD LAB POCT ORDERABLES - DE VICE Final Result Performing Organization Address [facility] Co de Phone Number [facility] [address] Department [employer] [place], [place] [phone] * POCT glucose (04/17/2024 12:06 PM ORTHOPEDIC PHYSICIAN) [facility] Glucose, POC 122 70 - 199 mg/dL Comment: For Glucose values <35 mg/dl when Hematocrit is >60 mg/dl,the test may not accurately detect significant hypoglycemia,and testing in the Laboratory should be considered if clinically indicated. Blood 04/17/2024 12:0 6 PM ORTHOPEDIC PHYSICIAN 04/17/2024 12:06 PM ORTHOPEDIC PHYSICIAN Jaime Colin MD LAB POCT ORDERABLES - DE VICE Final Result Performing Organization Address [facility] Co de Phone Number [facility] [address] [facility] [employer] [place], [place] [phone] * Prepare RBC: 1 Units (04/17/2024 11:46 AM ORTHOPEDIC PHYSICIAN) [facility] Product code [id number] Unit Number [id number] [facility] Product Blood Type OPOS [facility] Dispense Status RETURNED [facility] Blood 04/17/2024 11:4 6 AM ORTHOPEDIC PHYSICIAN Narrative [facility] - 04/18/2024 7:35 AM ORTHOPEDIC PHYSICIAN Are special requirements needed? (All products are leukoreduced and CMV- safe)- >No Date required:-[id number] LRRBC # of [id number] Reasons:-Hgb <7 g/dL} Georgia Reddy NP BLOOD BANK PRODUCT ORDER GINNA Final Result Performing Organization Address [facility] Co de Phone Number [facility] [address] Department [employer] [place], [place] [phone] * (ABNORMAL) CBC without differential (04/17/2024 11:16 AM ORTHOPEDIC PHYSICIAN) [facility] WBC 11.5(H) 3.8 - 9.9 K/cumm Hgb 6.6(L) 13.0 - 17.5 g/dL [facility] Hct 20.6(L) 38.9 - 50.3 % [facility] Plt 104(L) 150 - 400 K/cumm [facility] MPV 11.9 9.1 - 12.3 fL [facility] RBC 2.19(L) 4.30 - 5.80 M/cumm [facility] MCV 94.1 81.3 - 96.4 fL [facility] MCH 30.1 27.1 - 33.3 pg [facility] MCHC 32.0(L) 32.3 - 35.7 g/dL [facility] RDW CV 13.9 11.1 - 14.9 % [facility] RDW SD 47.0 35.7 - 48.1 fL [facility] NRBC abs 0.00 0.00 - 0.01 K/cumm [facility] Blood 04/17/2024 11:1 6 AM ORTHOPEDIC PHYSICIAN 04/17/2024 11:29 AM ORTHOPEDIC PHYSICIAN us Georgia Reddy NP LAB BLOOD ORDERABLES Fin al Result [facility] [address] Department [place] [address] * POCT glucose (04/17/2024 11:10 AM ORTHOPEDIC PHYSICIAN) [facility] Glucose, POC 132 70 - 199 mg/dL Comment: For Glucose values <35 mg/dl when Hematocrit is >60 mg/dl,the test may not accurately detect significant hypoglycemia,and testing in the Laboratory should be considered if clinically indicated. Blood 04/17/2024 11:1 0 AM ORTHOPEDIC PHYSICIAN 04/17/2024 11:10 AM ORTHOPEDIC PHYSICIAN us Jaime Colin MD LAB POCT ORDERABLES - DE VICE Final Result [facility] [address] Department [place] [address] * XR Chest 1 View (04/17/2024 9:47 AM ORTHOPEDIC PHYSICIAN) Anatomical Region Laterality Modality Body, Chest N/A Computed Radiogr aphy 04/17/2024 9:52 AM ORTHOPEDIC PHYSICIAN Impressions 04/17/2024 9:52 AM ORTHOPEDIC PHYSICIAN Interval removal right thoracostomy tube without additional significant interval change relative to same day chest radiograph. Electronically signed by: Mariano Santos M.D. Narrative 04/17/2024 9:52 AM ORTHOPEDIC PHYSICIAN EXAMINATION: XR CHEST 1 VIEW HISTORY: Right chest tube removal. COMPARISON: Multiple prior chest radiographs, most recently earlier same day. FINDINGS: AP upright portable chest radiograph was obtained. Interval removal right thoracostomy tube. Additional support devices are unchanged including left thoracostomy tube, mediastinal drain, mediastinal sternotomy clips, and right internal jugular approach central venous catheter. Heart size and pulmonary vascularity are unchanged. Mild left basilar atelectasis with suspected small left pleural effusion. Right lung aeration is unchanged. No right-sided pleural effusion or pneumothorax. Procedure Note Mariano Santos MD - 04/17/2024 EXAMINATION: XR CHEST 1 VIEW HISTORY: Right chest tube removal. COMPARISON: Multiple prior chest radiographs, most recently earlier same day. FINDINGS: AP upright portable chest radiograph was obtained. Interval removal right thoracostomy tube. Additional support devices are unchanged including left thoracostomy tube, mediastinal drain, mediastinal sternotomy clips, and right internal jugular approach central venous catheter. Heart size and pulmonary vascularity are unchanged. Mild left basilar atelectasis with suspected small left pleural effusion. Right lung aeration is unchanged. No right-sided pleural effusion or pneumothorax. IMPRESSION: Interval removal right thoracostomy tube without additional significant interval change relative to same day chest radiograph. Electronically signed by: Mariano Santos M.D. Georgia Reddy ANALYSIS REPORTING DEVELOPER IMG XR PROCEDURES Final Result * POCT glucose (04/17/2024 9:33 AM ORTHOPEDIC PHYSICIAN) Glucose, POC 142 70 - 199 mg/dL Comment: For Glucose values <35 mg/dl when Hematocrit is >60 mg/dl,the test may not accurately detect significant hypoglycemia,and testing in the Laboratory should be considered if clinically indicated. Blood 04/17/2024 9:33 AM ORTHOPEDIC PHYSICIAN 04/17/2024 9:33 AM ORTHOPEDIC PHYSICIAN us Jaime Colin MD LAB POCT ORDERABLES - DE VICE Final Result Performing Organization Address [facility] Co de Phone Number [facility] [address] Department [place] [address] * POCT glucose (04/17/2024 8:12 AM ORTHOPEDIC PHYSICIAN) [facility] Glucose, POC 135 70 - 199 mg/dL Comment: For Glucose values <35 mg/dl when Hematocrit is >60 mg/dl,the test may not accurately detect significant hypoglycemia,and testing in the Laboratory should be considered if clinically indicated. Blood 04/17/2024 8:12 AM ORTHOPEDIC PHYSICIAN 04/17/2024 8:12 AM ORTHOPEDIC PHYSICIAN us Jaime Colin MD LAB POCT ORDERABLES - DE VICE Final Result Performing Organization Address [facility] Co de Phone Number [facility] [address] Department [place] [address] * Critical Care (04/17/2024 7:39 AM ORTHOPEDIC PHYSICIAN) Narrative Brii Jaquez MD - 04/17/2024 7:39 AM ORTHOPEDIC PHYSICIAN Georgia Reddy NP 04/17/2024 11:47 AM Critical Care Performed by: Georgia Reddy NP Authorized by: Georgia Reddy NP CRITICAL CARE: Team: [facility] CT Shift: AM Level of Billing: Subsequent Hospital Visit Level 3 My time spent with this patient was 60 minutes: Critical Provider Statement: I have seen and examined the patient on this day of service. I have reviewed and confirmed the history, physical exam, laboratory, and radiographic data as documented in the ICU note. I have reviewed and discussed my treatment plan with the patient's team and other medical/it architecture consultant staff. This time was in addition to and separate from care provided by other practitioners on this day of service. I spent time reviewing and interpreting data from bedside monitors, laboratory results, and imaging and I spent time discussing the management of this critically ill patient with consultants and the medical staff us Georgia Reddy ANALYSIS REPORTING DEVELOPER IN CLINIC/BEDSIDE ORDERA BLES Final Result * POCT glucose (04/17/2024 7:12 AM ORTHOPEDIC PHYSICIAN) [facility] Glucose, POC 147 70 - 199 mg/dL Comment: For Glucose values <35 mg/dl when Hematocrit is >60 mg/dl,the test may not accurately detect significant hypoglycemia,and testing in the Laboratory should be considered if clinically indicated. Blood 04/17/2024 7:12 AM ORTHOPEDIC PHYSICIAN 04/17/2024 7:12 AM ORTHOPEDIC PHYSICIAN us Jaime Colin MD LAB POCT ORDERABLES - DE VICE Final Result [facility] [address] Department [place] [address] * XR Chest 1 View - Portable - in AM (04/17/2024 6:10 AM ORTHOPEDIC PHYSICIAN) Anatomical Region Laterality Modality Body, Chest N/A Computed Radiogr aphy 04/17/2024 7:10 AM ORTHOPEDIC PHYSICIAN Impressions 04/17/2024 7:10 AM ORTHOPEDIC PHYSICIAN As above. Electronically signed by: Mariano Santos M.D. Narrative 04/17/2024 7:10 AM ORTHOPEDIC PHYSICIAN EXAMINATION: XR CHEST 1 VIEW HISTORY: Pleural effusion. Follow-up imaging. COMPARISON: Multiple prior chest radiograph, most recently 04/16/2024 5:40 AM. FINDINGS: Chest radiograph 04/16/2024 8:57 PM: Changes of median sternotomy. Similar placement right internal approach central venous catheter with tip at the superior cavoatrial junction. Similar placement pulmonary arterial catheter with tip in the main pulmonary artery. Bilateral thoracostomy tubes in similar position. Heart size is stable and within normal limits. Left-sided atelectasis with layering pleural effusion, not significantly intervally changed. Minimal right basilar atelectasis. No pneumothorax. Chest radiograph 04/17/2024 6:05 AM: Interval removal of pulmonary arterial catheter; otherwise, stable devices as detailed above. Unchanged aeration with persistent bibasilar atelectasis and layering left pleural effusion. Procedure Note Mariano Santos MD - 04/17/2024 EXAMINATION: XR CHEST 1 VIEW HISTORY: Pleural effusion. Follow-up imaging. COMPARISON: Multiple prior chest radiograph, most recently 04/16/2024 5:40 AM. FINDINGS: Chest radiograph 04/16/2024 8:57 PM: Changes of median sternotomy. Similar placement right internal approach central venous catheter with tip at the superior cavoatrial junction. Similar placement pulmonary arterial catheter with tip in the main pulmonary artery. Bilateral thoracostomy tubes in similar position. Heart size is stable and within normal limits. Left-sided atelectasis with layering pleural effusion, not significantly intervally changed. Minimal right basilar atelectasis. No pneumothorax. Chest radiograph 04/17/2024 6:05 AM: Interval removal of pulmonary arterial catheter; otherwise, stable devices as detailed above. Unchanged aeration with persistent bibasilar atelectasis and layering left pleural effusion. IMPRESSION: As above. Electronically signed by: Mariano Santos M.D. Georgia Reddy ANALYSIS REPORTING DEVELOPER IMG XR PROCEDURES Final Result * POCT glucose (04/17/2024 6:08 AM ORTHOPEDIC PHYSICIAN) [facility] Glucose, POC 143 70 - 199 mg/dL Comment: For Glucose values <35 mg/dl when Hematocrit is >60 mg/dl,the test may not accurately detect significant hypoglycemia,and testing in the Laboratory should be considered if clinically indicated. Blood 04/17/2024 6:08 AM ORTHOPEDIC PHYSICIAN 04/17/2024 6:08 AM ORTHOPEDIC PHYSICIAN Jaime Colin MD LAB POCT ORDERABLES - DE VICE Final Result [facility] [address] Department [place] [employer] [place] [phone] * POCT glucose (04/17/2024 3:18 AM ORTHOPEDIC PHYSICIAN) Pathologist [facility] Glucose, POC 141 70 - 199 mg/dL Comment: For Glucose values <35 mg/dl when Hematocrit is >60 mg/dl,the test may not accurately detect significant hypoglycemia,and testing in the Laboratory should be considered if clinically indicated. Blood 04/17/2024 3:18 AM ORTHOPEDIC PHYSICIAN 04/17/2024 3:18 AM ORTHOPEDIC PHYSICIAN us Jaime Colin MD LAB POCT ORDERABLES - DE VICE Final Result Performing Organization Address City/[facility]/ZIP Co de Phone Number [facility] [address] Department [place] [address] * (ABNORMAL) Hemoglobin and hematocrit (04/17/2024 3:08 AM ORTHOPEDIC PHYSICIAN) [facility] Hgb 7.2(L) 13.0 - 17.5 g/dL Hct 21.8(L) 38.9 - 50.3 % [facility] Blood 04/17/2024 3:08 AM ORTHOPEDIC PHYSICIAN 04/17/2024 3:20 AM ORTHOPEDIC PHYSICIAN us Pao Kwong NP LAB BLOOD ORDERABLES Gail l Result [facility] [address] Department [place] [address] * (ABNORMAL) Blood gas, arterial (04/17/2024 3:08 AM ORTHOPEDIC PHYSICIAN) Pathologist [facility] pH, Art 7.41 7.35 - 7.45 PCO2, Arterial 35 35 - 45 mmHg [facility] PO2, Arterial 165(H) 83 - 108 mmHg [facility] HCO3 Art (Calculated) 22 20 - 30 mmol/L [facility] BE, art -2 mmol/L [facility] Comment: Interpretive Data No Reference Range Established Current Interpretive Data was last revised on 2017 O2 Sat Art (Calculated) 100(H) 94 - 98 % [facility] Blood 04/17/2024 3:08 AM ORTHOPEDIC PHYSICIAN 04/17/2024 3:18 AM ORTHOPEDIC PHYSICIAN Pao Kwong ANALYSIS REPORTING DEVELOPER LAB BLOOD ORDERABLES Gail l Result Performing Organization Address [facility] Co de Phone Number [facility] [address] [facility] [employer] [place], [place] [phone] * Transfuse RBC (04/17/2024 2:24 AM ORTHOPEDIC PHYSICIAN) Blood Pao Kwong ANALYSIS REPORTING DEVELOPER BLOOD TRANSFUSION ORDERAB LES Final Result Performing Organization Address [facility] Co de Phone Number [facility] [address] [facility] [employer] [place] [address] * POCT glucose (04/17/2024 2:14 AM ORTHOPEDIC PHYSICIAN) Glucose, POC 144 70 - 199 mg/dL Comment: For Glucose values <35 mg/dl when Hematocrit is >60 mg/dl,the test may not accurately detect significant hypoglycemia,and testing in the Laboratory should be considered if clinically indicated. Blood 04/17/2024 2:14 AM ORTHOPEDIC PHYSICIAN 04/17/2024 2:14 AM ORTHOPEDIC PHYSICIAN Jaime Colin MD LAB POCT ORDERABLES - DE VICE Final Result Performing Organization Address [facility] Co de Phone Number [facility] [address] [facility] [employer] [place] [address] * POCT glucose (04/17/2024 1:05 AM ORTHOPEDIC PHYSICIAN) Glucose, POC 138 70 - 199 mg/dL Comment: For Glucose values <35 mg/dl when Hematocrit is >60 mg/dl,the test may not accurately detect significant hypoglycemia,and testing in the Laboratory should be considered if clinically indicated. Blood 04/17/2024 1:05 AM ORTHOPEDIC PHYSICIAN 04/17/2024 1:05 AM ORTHOPEDIC PHYSICIAN us Jaime Colin MD LAB POCT ORDERABLES - DE VICE Final Result Performing Organization Address [facility]/ZIP Co de Phone Number [facility] [address] [employer] [place], [place] [id number] * (ABNORMAL) eGFR (04/17/2024 12:51 AM ORTHOPEDIC PHYSICIAN) eGFR 58(L) >=60 mL/min/1. 73 m2 Comment: Interpretive Data Reference Interval Normal >/= 90 mL/min/1.73m2 Mildly decreased* 60 - 89 mL/min/1.73m2 Mildly to moderately decreased 45 - 59 mL/min/1.73m2 Moderately to severely decreased 30 - 44 mL/min/1.73m2 Severely decreased 15 - 29 mL/min/1.73m2 Kidney Failure < 15 mL/min/1.73m2 *Relative to young adult level Estimated glomerular filtration rate is determined by the 2020 CKD-EPI equation recommended by the National Kidney Foundation (A Unifying Approach to GFR Estimation: Recommendations of the NKF-ASK Task Force on Reassessing the Inclusion of Race in Diagnosing Kidney Disease, JASN 2020). The CKD-EPI equation should not be used for patients with unstable renal function and has not been validated in children and those over 70. Current interpretive data was last reviewed 2021. Blood 04/17/2024 12:5 1 AM ORTHOPEDIC PHYSICIAN 04/17/2024 1:09 AM ORTHOPEDIC PHYSICIAN us Aleshia Mckeon NP LAB BLOOD ORDERABLES F inal Result [facility] [address] Department of [employer] [place], [place] [id number] * Calcium, ionized (04/17/2024 12:51 AM ORTHOPEDIC PHYSICIAN) Calcium, Ionized 4.80 4.50 - 5.10 mg/dL Blood 04/17/2024 12:5 1 AM ORTHOPEDIC PHYSICIAN 04/17/2024 1:02 AM ORTHOPEDIC PHYSICIAN Georgia Reddy ANALYSIS REPORTING DEVELOPER LAB BLOOD ORDERABLES Fin al Result [facility] [address] [place] [place] [address] * (ABNORMAL) CBC without differential (04/17/2024 12:51 AM ORTHOPEDIC PHYSICIAN) WBC 13.2(H) 3.8 - 9.9 K/cumm Hgb 6.4(C) 13.0 - 17.5 g/dL [facility] Comment:Spoke with Shelly phillips RN. Critical result called to and read back by SHELLY MARCIAL RN on 04 17 2024 at 0122 to Lizzie Kraft. Hct 19.6(L) 38.9 - 50.3 % [facility] Plt 115(L) 150 - 400 K/cumm [facility] MPV 11.7 9.1 - 12.3 fL [facility] RBC 2.10(L) 4.30 - 5.80 M/cumm [facility] MCV 93.3 81.3 - 96.4 fL [facility] MCH 30.5 27.1 - 33.3 pg [facility] MCHC 32.7 32.3 - 35.7 g/dL [facility] RDW CV 13.6 11.1 - 14.9 % [facility] RDW SD 46.0 35.7 - 48.1 fL [facility] NRBC abs 0.00 0.00 - 0.01 K/cumm [facility] Blood 04/17/2024 12:5 1 AM ORTHOPEDIC PHYSICIAN 04/17/2024 1:09 AM ORTHOPEDIC PHYSICIAN Georgia Reddy ANALYSIS REPORTING DEVELOPER LAB BLOOD ORDERABLES Fin al Result [facility] [address] [employer] [place] [address] * Magnesium (04/17/2024 12:51 AM ORTHOPEDIC PHYSICIAN) Pathologist [facility] Magnesium 2.2 1.4 - 2.5 mg/dL Blood 04/17/2024 12:5 1 AM ORTHOPEDIC PHYSICIAN 04/17/2024 1:09 AM ORTHOPEDIC PHYSICIAN Georgia Reddy ANALYSIS REPORTING DEVELOPER LAB BLOOD ORDERABLES Fin bishnu Result [facility] [address] Department [place] [address] * (ABNORMAL) Renal function panel (04/17/2024 12:51 AM ORTHOPEDIC PHYSICIAN) [facility] Sodium 143 135 - 145 mmol/L Potassium, pl 4.4 3.3 - 4.9 mmol/L [facility] Chloride 110 97 - 110 mmol/L [facility] CO2 21(L) 22 - 32 mmol/L [facility] Anion gap 12 2 - 15 mmol/L [facility] BUN 35(H) 6 - 25 mg/dL [facility] Creatinine 1.39(H) 0.80 - 1.30 mg/dL [facility] Glucose 125 70 - 199 mg/dL [facility] Comment: Interpretive Data Fasting glucose >/= 126 mg/dl is diagnostic for diabetes. Fasting is defined as no caloric intake for at least 8 hours. Fasting glucose between 100 mg/dl to 125 mg/dl is diagnostic of prediabetes. In a patient with classic symptoms of hyperglycemia or hyperglycemic crisis, a random glucose >/= 200 mg/dl is diagnostic for diabetes. In the absence of unequivocal hyperglycemia, results should be confirmed by repeat testing. The classification and Diagnosis of Diabetes Diabetes Care 2021; 46: S19-S40. Current interpretive data was last revised 2022. Calcium 8.2(L) 8.5 - 10.3 mg/dL [facility] Phosphorus, pl 4.3 2.3 - 4.5 mg/dL [facility] Albumin 3.0(L) 3.5 - 5.0 g/dL [facility] Blood 04/17/2024 12:5 1 AM ORTHOPEDIC PHYSICIAN 04/17/2024 1:09 AM ORTHOPEDIC PHYSICIAN Georgia Reddy ANALYSIS REPORTING DEVELOPER LAB BLOOD ORDERABLES Fin al Result Performing Organization Address [facility] Co de Phone Number [facility] [address] [facility] [employer] [place] [address] * POCT glucose (04/17/2024 12:17 AM ORTHOPEDIC PHYSICIAN) Glucose, POC 130 70 - 199 mg/dL Comment: For Glucose values <35 mg/dl when Hematocrit is >60 mg/dl,the test may not accurately detect significant hypoglycemia,and testing in the Laboratory should be considered if clinically indicated. Blood 04/17/2024 12:1 7 AM ORTHOPEDIC PHYSICIAN 04/17/2024 12:17 AM ORTHOPEDIC PHYSICIAN Jaime Colin MD LAB POCT ORDERABLES - DE VICE Final Result Performing Organization Address [facility] Co de Phone Number [facility] [address] [facility] [employer] [place] [address] * POCT glucose (04/16/2024 11:06 PM ORTHOPEDIC PHYSICIAN) Glucose, POC 127 70 - 199 mg/dL Comment: For Glucose values <35 mg/dl when Hematocrit is >60 mg/dl,the test may not accurately detect significant hypoglycemia,and testing in the Laboratory should be considered if clinically indicated. Blood 04/16/2024 11:0 6 PM ORTHOPEDIC PHYSICIAN 04/16/2024 11:06 PM ORTHOPEDIC PHYSICIAN Jaime Colin MD LAB POCT ORDERABLES - DE VICE Final Result Performing Organization Address [facility] Co de Phone Number [facility] [address] [facility] [employer] [place] [address] * POCT glucose (04/16/2024 10:07 PM ORTHOPEDIC PHYSICIAN) Glucose, POC 125 70 - 199 mg/dL Comment: For Glucose values <35 mg/dl when Hematocrit is >60 mg/dl,the test may not accurately detect significant hypoglycemia,and testing in the Laboratory should be considered if clinically indicated. Blood 04/16/2024 10:0 7 PM ORTHOPEDIC PHYSICIAN 04/16/2024 10:07 PM ORTHOPEDIC PHYSICIAN Jaime Colin MD LAB POCT ORDERABLES - DE VICE Final Result [facility] [address] Department [place] [address] * XR Chest 1 View (04/16/2024 9:15 PM ORTHOPEDIC PHYSICIAN) Anatomical Region Laterality Modality Body, Chest N/A Computed Radiogr aphy 04/17/2024 7:10 AM ORTHOPEDIC PHYSICIAN Impressions 04/17/2024 7:10 AM ORTHOPEDIC PHYSICIAN As above. Electronically signed by: Mariano Santos M.D. Narrative 04/17/2024 7:10 AM ORTHOPEDIC PHYSICIAN EXAMINATION: XR CHEST 1 VIEW HISTORY: Pleural effusion. Follow-up imaging. COMPARISON: Multiple prior chest radiograph, most recently 04/16/2024 5:40 AM. FINDINGS: Chest radiograph 04/16/2024 8:57 PM: Changes of median sternotomy. Similar placement right internal approach central venous catheter with tip at the superior cavoatrial junction. Similar placement pulmonary arterial catheter with tip in the main pulmonary artery. Bilateral thoracostomy tubes in similar position. Heart size is stable and within normal limits. Left-sided atelectasis with layering pleural effusion, not significantly intervally changed. Minimal right basilar atelectasis. No pneumothorax. Chest radiograph 04/17/2024 6:05 AM: Interval removal of pulmonary arterial catheter; otherwise, stable devices as detailed above. Unchanged aeration with persistent bibasilar atelectasis and layering left pleural effusion. Procedure Note Mariano Santos MD - 04/17/2024 EXAMINATION: XR CHEST 1 VIEW HISTORY: Pleural effusion. Follow-up imaging. COMPARISON: Multiple prior chest radiograph, most recently 04/16/2024 5:40 AM. FINDINGS: Chest radiograph 04/16/2024 8:57 PM: Changes of median sternotomy. Similar placement right internal approach central venous catheter with tip at the superior cavoatrial junction. Similar placement pulmonary arterial catheter with tip in the main pulmonary artery. Bilateral thoracostomy tubes in similar position. Heart size is stable and within normal limits. Left-sided atelectasis with layering pleural effusion, not significantly intervally changed. Minimal right basilar atelectasis. No pneumothorax. Chest radiograph 04/17/2024 6:05 AM: Interval removal of pulmonary arterial catheter; otherwise, stable devices as detailed above. Unchanged aeration with persistent bibasilar atelectasis and layering left pleural effusion. IMPRESSION: As above. Electronically signed by: Mariano Santos M.D. Pao Kwong ANALYSIS REPORTING DEVELOPER IMG XR PROCEDURES Final R esult * Oxyhemoglobin, central venous (04/16/2024 9:14 PM ORTHOPEDIC PHYSICIAN) Oxyhemoglobin, CV 69.7 % Comment: Interpretive Data No reference range established. Current interpretive data was last revised 2019. Blood 04/16/2024 9:14 PM ORTHOPEDIC PHYSICIAN 04/16/2024 9:21 PM ORTHOPEDIC PHYSICIAN Pao Kwong ANALYSIS REPORTING DEVELOPER LAB BLOOD ORDERABLES Gail l Result Performing Organization Address [facility] Co de Phone Number [facility] [address] [employer] [place], [place] [id number] * POCT glucose (04/16/2024 8:48 PM ORTHOPEDIC PHYSICIAN) Glucose, POC 118 70 - 199 mg/dL Comment: For Glucose values <35 mg/dl when Hematocrit is >60 mg/dl,the test may not accurately detect significant hypoglycemia,and testing in the Laboratory should be considered if clinically indicated. Blood 04/16/2024 8:48 PM ORTHOPEDIC PHYSICIAN 04/16/2024 8:48 PM ORTHOPEDIC PHYSICIAN Jaime Colin MD LAB POCT ORDERABLES - DE VICE Final Result Performing Organization Address [facility] Co de Phone Number [facility] [address] Department [place] [address] * Critical Care (04/16/2024 7:49 PM ORTHOPEDIC PHYSICIAN) Narrative Brii Jaquez MD - 04/16/2024 7:49 PM ORTHOPEDIC PHYSICIAN Pao Kwong NP 04/17/2024 5:42 AM Critical Care Performed by: Pao Kwong NP Authorized by: Pao Kwong NP CRITICAL CARE: Team: [facility] CT Shift: PM Level of Billing: Critical Care My time spent with this patient was 90 minutes: Critical Provider Statement: I have seen and examined the patient on this day of service. I have reviewed and confirmed the history, physical exam, laboratory and radiologic data as documented in the signed ICU note. I have reviewed and discussed my treatment plan with the ICU team and other medical/it architecture consultant staff, making frequent assessments and decisions regarding this patient's complex medical care. Critical Care time was exclusive of time spent performing separately billed procedures, treating other patients, and teaching. This time was in addition to and separate from critical care provided by other practitioners in my group on this day of service. Critical Care was necessary to treat or prevent imminent or life-threatening deterioration of the following conditions: I spent time documenting in the medical record, I spent time discussing the management of this critically ill patient with consultants and the medical staff and I spent time reviewing and interpreting data from bedside monitors, laboratory results, and imaging us Pao Kwong ANALYSIS REPORTING DEVELOPER IN CLINIC/BEDSIDE ORDERAB LES Final Result * Oxyhemoglobin, central venous (04/16/2024 7:44 PM ORTHOPEDIC PHYSICIAN) Oxyhemoglobin, CV 90.0 % Comment: Interpretive Data No reference range established. Current interpretive data was last revised 2019. Blood 04/16/2024 7:44 PM ORTHOPEDIC PHYSICIAN 04/16/2024 8:01 PM ORTHOPEDIC PHYSICIAN us Pao Kwong ANALYSIS REPORTING DEVELOPER LAB BLOOD ORDERABLES Gail matamoros Result [facility] [address] [place] [address] * POCT glucose (04/16/2024 7:27 PM ORTHOPEDIC PHYSICIAN) Glucose, POC 120 70 - 199 mg/dL Comment: For Glucose values <35 mg/dl when Hematocrit is >60 mg/dl,the test may not accurately detect significant hypoglycemia,and testing in the Laboratory should be considered if clinically indicated. Blood 04/16/2024 7:27 PM ORTHOPEDIC PHYSICIAN 04/16/2024 7:27 PM ORTHOPEDIC PHYSICIAN Jaime Colin MD LAB POCT ORDERABLES - DE VICE Final Result Performing Organization Address [facility] Phone Number [facility] [address] [facility] [place] [address] * POCT glucose (04/16/2024 6:04 PM ORTHOPEDIC PHYSICIAN) Glucose, POC 134 70 - 199 mg/dL Comment: For Glucose values <35 mg/dl when Hematocrit is >60 mg/dl,the test may not accurately detect significant hypoglycemia,and testing in the Laboratory should be considered if clinically indicated. Blood 04/16/2024 6:04 PM ORTHOPEDIC PHYSICIAN 04/16/2024 6:04 PM ORTHOPEDIC PHYSICIAN Jaime Colin MD LAB POCT ORDERABLES - DE VICE Final Result Performing Organization Address [facility] Phone Number [facility] [address] [facility] [place] [address] * POCT glucose (04/16/2024 5:23 PM ORTHOPEDIC PHYSICIAN) Glucose, POC 121 70 - 199 mg/dL Comment: For Glucose values <35 mg/dl when Hematocrit is >60 mg/dl,the test may not accurately detect significant hypoglycemia,and testing in the Laboratory should be considered if clinically indicated. Blood 04/16/2024 5:23 PM ORTHOPEDIC PHYSICIAN 04/16/2024 5:23 PM ORTHOPEDIC PHYSICIAN Jaime Colin MD LAB POCT ORDERABLES - DE VICE Final Result Performing Organization Address [facility] Phone Number [facility] [address] Department [place] [address] * POCT glucose (04/16/2024 3:10 PM ORTHOPEDIC PHYSICIAN) Glucose, POC 109 70 - 199 mg/dL Comment: For Glucose values <35 mg/dl when Hematocrit is >60 mg/dl,the test may not accurately detect significant hypoglycemia,and testing in the Laboratory should be considered if clinically indicated. Blood 04/16/2024 3:10 PM ORTHOPEDIC PHYSICIAN 04/16/2024 3:10 PM ORTHOPEDIC PHYSICIAN Jaime Colin MD LAB POCT ORDERABLES - DE VICE Final Result Performing Organization Address City/[facility] Co de Phone Number [facility] [address] [facility] [employer] [place] [address] * POCT glucose (04/16/2024 2:27 PM ORTHOPEDIC PHYSICIAN) Pathologist [facility] Glucose, POC 103 70 - 199 mg/dL Comment: For Glucose values <35 mg/dl when Hematocrit is >60 mg/dl,the test may not accurately detect significant hypoglycemia,and testing in the Laboratory should be considered if clinically indicated. Blood 04/16/2024 2:27 PM ORTHOPEDIC PHYSICIAN 04/16/2024 2:27 PM ORTHOPEDIC PHYSICIAN Jaime Colin MD LAB POCT ORDERABLES - DE VICE Final Result Performing Organization Address City/[facility] Co de Phone Number [facility] [address] [place] [address] * (ABNORMAL) Blood gas, arterial (04/16/2024 2:24 PM ORTHOPEDIC PHYSICIAN) Pathologist [facility] pH, Art 7.40 7.35 - 7.45 PCO2, Arterial 35 35 - 45 mmHg [facility] PO2, Arterial 69(L) 83 - 108 mmHg [facility] HCO3 Art (Calculated) 22 20 - 30 mmol/L [facility] BE, art -2 mmol/L [facility] Comment: Interpretive Data No Reference Range Established Current Interpretive Data was last revised on 2017 O2 Sat Art (Calculated) 94 94 - 98 % [facility] Blood 04/16/2024 2:24 PM ORTHOPEDIC PHYSICIAN 04/16/2024 2:30 PM ORTHOPEDIC PHYSICIAN Jazmin Tirado ANALYSIS REPORTING DEVELOPER LAB BLOOD ORDERABLES Final Result Performing Organization Address City/[facility]/ZIP Co de Phone Number [facility] [address] Department [place] [address] * (ABNORMAL) eGFR (04/16/2024 1:33 PM ORTHOPEDIC PHYSICIAN) eGFR 56(L) >=60 mL/min/1. 73 m2 Comment: Interpretive Data Reference Interval Normal >/= 90 mL/min/1.73m2 Mildly decreased* 60 - 89 mL/min/1.73m2 Mildly to moderately decreased 45 - 59 mL/min/1.73m2 Moderately to severely decreased 30 - 44 mL/min/1.73m2 Severely decreased 15 - 29 mL/min/1.73m2 Kidney Failure < 15 mL/min/1.73m2 *Relative to young adult level Estimated glomerular filtration rate is determined by the 2020 CKD-EPI equation recommended by the National Kidney Foundation (A Unifying Approach to GFR Estimation: Recommendations of the NKF-ASK Task Force on Reassessing the Inclusion of Race in Diagnosing Kidney Disease, JASN 202). The CKD-EPI equation should not be used for patients with unstable renal function and has not been validated in children and those over 70. Current interpretive data was last reviewed 2021. Blood 04/16/2024 1:33 PM ORTHOPEDIC PHYSICIAN 04/16/2024 1:46 PM ORTHOPEDIC PHYSICIAN Jazmin Tirado NP LAB BLOOD ORDERABLES Final Result Performing Organization Address [facility]/ZIP Co de Phone Number [facility] [address] Department of [employer] [place], [place] [id number] * (ABNORMAL) Differential, auto (04/16/2024 1:33 PM ORTHOPEDIC PHYSICIAN) Neutrophil abs 12.2(H) 1.5 - 6.5 K/cumm Imm gran abs 0.1 0.0 - 0.1 K/cumm [facility] Lymphocyte abs 0.7(L) 0.8 - 3.3 K/cumm [facility] Monocyte abs 1.5(H) 0.2 - 0.8 K/cumm [facility] Eosinophil abs 0.0 0.0 - 0.5 K/cumm [facility] Basophil abs 0.0 0.0 - 0.1 K/cumm [facility] Neutrophil pct 84.4 % [facility] Comment: Interpretive Data Percent cell count reference ranges are not reported, since discordance with absolute values may lead to misinterpretation of CBC data. Current Interpretive Data was last revised on 2017. Imm gran pct 0.4 % [facility] Comment: Interpretive Data Percent cell count reference ranges are not reported, since discordance with absolute values may lead to misinterpretation of CBC data. Current Interpretive Data was last revised on 2017. Lymphocyte pct 4.8 % [facility] Comment: Interpretive Data Percent cell count reference ranges are not reported, since discordance with absolute values may lead to misinterpretation of CBC data. Current Interpretive Data was last revised on 2017. Monocyte pct 10.2 % [facility] Comment: Interpretive Data Percent cell count reference ranges are not reported, since discordance with absolute values may lead to misinterpretation of CBC data. Current Interpretive Data was last revised on 2017. Eosinophil pct 0.0 % [facility] Comment: Interpretive Data Percent cell count reference ranges are not reported, since discordance with absolute values may lead to misinterpretation of CBC data. Current Interpretive Data was last revised on 2017. Basophil pct 0.2 % [facility] Comment: Interpretive Data Percent cell count reference ranges are not reported, since discordance with absolute values may lead to misinterpretation of CBC data. Current Interpretive Data was last revised on 2017. Blood 04/16/2024 1:33 PM ORTHOPEDIC PHYSICIAN 04/16/2024 1:47 PM ORTHOPEDIC PHYSICIAN Jazmin Tirado NP LAB BLOOD ORDERABLES Final Result Performing Organization Address [facility] de Phone Number [facility] [address] Department [place] [address] * (ABNORMAL) CBC with auto differential (04/16/2024 1:33 PM ORTHOPEDIC PHYSICIAN) [facility] WBC 14.5(H) 3.8 - 9.9 K/cumm Hgb 7.3(L) 13.0 - 17.5 g/dL [facility] Hct 22.1(L) 38.9 - 50.3 % [facility] Plt 109(L) 150 - 400 K/cumm [facility] MPV 11.3 9.1 - 12.3 fL [facility] RBC 2.42(L) 4.30 - 5.80 M/cumm [facility] MCV 91.3 81.3 - 96.4 fL [facility] MCH 30.2 27.1 - 33.3 pg [facility] MCHC 33.0 32.3 - 35.7 g/dL [facility] RDW CV 13.2 11.1 - 14.9 % [facility] RDW SD 43.9 35.7 - 48.1 fL [facility] NRBC abs 0.00 0.00 - 0.01 K/cumm [facility] Blood 04/16/2024 1:33 PM ORTHOPEDIC PHYSICIAN 04/16/2024 1:47 PM ORTHOPEDIC PHYSICIAN Jazmin Tirado NP LAB BLOOD ORDERABLES Final Result Performing Organization Address [facility] Co de Phone Number [facility] [address] Department [place] [address] * (ABNORMAL) Renal function panel (04/16/2024 1:33 PM ORTHOPEDIC PHYSICIAN) [facility] Sodium 140 135 - 145 mmol/L Potassium, pl 4.1 3.3 - 4.9 mmol/L [facility] Chloride 109 97 - 110 mmol/L [facility] CO2 22 22 - 32 mmol/L [facility] Anion gap 9 2 - 15 mmol/L [facility] BUN 31(H) 6 - 25 mg/dL [facility] Creatinine 1.45(H) 0.80 - 1.30 mg/dL [facility] Glucose 100 70 - 199 mg/dL [facility] Comment: Interpretive Data Fasting glucose >/= 126 mg/dl is diagnostic for diabetes. Fasting is defined as no caloric intake for at least 8 hours. Fasting glucose between 100 mg/dl to 125 mg/dl is diagnostic of prediabetes. In a patient with classic symptoms of hyperglycemia or hyperglycemic crisis, a random glucose >/= 200 mg/dl is diagnostic for diabetes. In the absence of unequivocal hyperglycemia, results should be confirmed by repeat testing. The classification and Diagnosis of Diabetes Diabetes Care 2021; 46: S19-S40. Current interpretive data was last revised 2022. Calcium 8.2(L) 8.5 - 10.3 mg/dL [facility] Phosphorus, pl 4.4 2.3 - 4.5 mg/dL [facility] Albumin 3.2(L) 3.5 - 5.0 g/dL [facility] Blood 04/16/2024 1:33 PM ORTHOPEDIC PHYSICIAN 04/16/2024 1:46 PM ORTHOPEDIC PHYSICIAN us Jazmin Tirado NP LAB BLOOD ORDERABLES Final Result Performing Organization Address [facility]/ZIP Co de Phone Number [facility] [address] [place] [address] * POCT glucose (04/16/2024 1:06 PM ORTHOPEDIC PHYSICIAN) [facility] Glucose, POC 136 70 - 199 mg/dL Comment: For Glucose values <35 mg/dl when Hematocrit is >60 mg/dl,the test may not accurately detect significant hypoglycemia,and testing in the Laboratory should be considered if clinically indicated. Blood 04/16/2024 1:06 PM ORTHOPEDIC PHYSICIAN 04/16/2024 1:06 PM ORTHOPEDIC PHYSICIAN us Jaime Colin MD LAB POCT ORDERABLES - DE VICE Final Result Performing Organization Address [facility]/ZIP Co de Phone Number [facility] [address] [facility] [place] [address] * POCT glucose (04/16/2024 11:03 AM ORTHOPEDIC PHYSICIAN) Glucose, POC 140 70 - 199 mg/dL Comment: For Glucose values <35 mg/dl when Hematocrit is >60 mg/dl,the test may not accurately detect significant hypoglycemia,and testing in the Laboratory should be considered if clinically indicated. Blood 04/16/2024 11:0 3 AM ORTHOPEDIC PHYSICIAN 04/16/2024 11:03 AM ORTHOPEDIC PHYSICIAN Jaime Colin MD LAB POCT ORDERABLES - DE VICE Final Result Performing Organization Address [facility] Co de Phone Number [facility] [address] [place] [address] * POCT glucose (04/16/2024 10:08 AM ORTHOPEDIC PHYSICIAN) Glucose, POC 113 70 - 199 mg/dL Comment: For Glucose values <35 mg/dl when Hematocrit is >60 mg/dl,the test may not accurately detect significant hypoglycemia,and testing in the Laboratory should be considered if clinically indicated. Blood 04/16/2024 10:0 8 AM ORTHOPEDIC PHYSICIAN 04/16/2024 10:08 AM ORTHOPEDIC PHYSICIAN Jaime Colin MD LAB POCT ORDERABLES - DE VICE Final Result Performing Organization Address [facility] Co de Phone Number [facility] [address] [place] [address] * POCT glucose (04/16/2024 8:50 AM ORTHOPEDIC PHYSICIAN) Glucose, POC 112 70 - 199 mg/dL Comment: For Glucose values <35 mg/dl when Hematocrit is >60 mg/dl,the test may not accurately detect significant hypoglycemia,and testing in the Laboratory should be considered if clinically indicated. Blood 04/16/2024 8:50 AM ORTHOPEDIC PHYSICIAN 04/16/2024 8:50 AM ORTHOPEDIC PHYSICIAN Jaime Colin MD LAB POCT ORDERABLES - DE VICE Final Result Performing Organization Address [facility] Co de Phone Number [facility] [address] Department [employer] [place], [place] [id number] * Lactate (04/16/2024 8:44 AM ORTHOPEDIC PHYSICIAN) Lactate 1.9 0.7 - 2.0 mmol/L Blood 04/16/2024 8:44 AM ORTHOPEDIC PHYSICIAN 04/16/2024 8:52 AM ORTHOPEDIC PHYSICIAN Jazmin Tirado ANALYSIS REPORTING DEVELOPER LAB BLOOD ORDERABLES Final Result Performing Organization Address [facility] Co de Phone Number [facility] [address] [employer] [place] [address] * aPTT (04/16/2024 8:44 AM ORTHOPEDIC PHYSICIAN) Pathologist [facility] aPTT 33 28 - 38 sec Comment: Interpretive Data Heparin therapeutic range: 66.0 - 100.0 seconds. Range based on correlation with therapeutic heparin activity range of 0.3 - 0.7 Units/mL. Current interpretive data was last revised on 2023. Blood 04/16/2024 8:44 AM ORTHOPEDIC PHYSICIAN 04/16/2024 8:53 AM ORTHOPEDIC PHYSICIAN Aleshia Mckeon ANALYSIS REPORTING DEVELOPER LAB BLOOD ORDERABLES F inal Result Performing Organization Address [facility] Co de Phone Number [facility] [address] Department [employer] [place], [place] [phone] * Protime-INR (04/16/2024 8:44 AM ORTHOPEDIC PHYSICIAN) PT 12.2 9.7 - 13.0 sec INR 1.13 0.90 - 1.20 [facility] Comment: Interpretive data Oral anticoagulant therapeutic ranges: Venous thromboembolism prophylaxis or treatment: 2.0-3.0 CARDIOLOGY Standard range: 2.0-3.0 High-intensity range: 2.5-3.5 Refer to indication-specific guidelines for appropriate target ranges for prosthetic heart valve replacement. Current interpretive data was last revised on 2019. Blood 04/16/2024 8:44 AM ORTHOPEDIC PHYSICIAN 04/16/2024 8:53 AM ORTHOPEDIC PHYSICIAN Aleshia Mckeon ANALYSIS REPORTING DEVELOPER LAB BLOOD ORDERABLES F inal Result Performing Organization Address [facility] Co de Phone Number [facility] [address] [facility] [place] [address] * Fibrinogen (04/16/2024 8:44 AM ORTHOPEDIC PHYSICIAN) Fibrinogen 340 170 - 400 mg/dL Blood 04/16/2024 8:44 AM ORTHOPEDIC PHYSICIAN 04/16/2024 8:53 AM ORTHOPEDIC PHYSICIAN Aleshia Mckeon ANALYSIS REPORTING DEVELOPER LAB BLOOD ORDERABLES F inal Result Performing Organization Address [facility] de Phone Number [facility] [address] [facility] [place] [address] * Blood gas, arterial (04/16/2024 8:44 AM ORTHOPEDIC PHYSICIAN) pH, Art 7.39 7.35 - 7.45 PCO2, Arterial 39 35 - 45 mmHg [facility] PO2, Arterial 86 83 - 108 mmHg [facility] HCO3 Art (Calculated) 24 20 - 30 mmol/L [facility] BE, art -1 mmol/L [facility] Comment: Interpretive Data No Reference Range Established Current Interpretive Data was last revised on 2017 O2 Sat Art (Calculated) 96 94 - 98 % [facility] Blood 04/16/2024 8:44 AM ORTHOPEDIC PHYSICIAN 04/16/2024 8:52 AM ORTHOPEDIC PHYSICIAN Jazmin Tirado ANALYSIS REPORTING DEVELOPER LAB BLOOD ORDERABLES Final Result Performing Organization Address [facility] Co de Phone Number [facility] [address] Department [place] [address] * POCT glucose (04/16/2024 7:07 AM ORTHOPEDIC PHYSICIAN) Glucose, POC 129 70 - 199 mg/dL Comment: For Glucose values <35 mg/dl when Hematocrit is >60 mg/dl,the test may not accurately detect significant hypoglycemia,and testing in the Laboratory should be considered if clinically indicated. Blood 04/16/2024 7:07 AM ORTHOPEDIC PHYSICIAN 04/16/2024 7:07 AM ORTHOPEDIC PHYSICIAN us Jaime Colin MD LAB POCT ORDERABLES - DE VICE Final Result [facility] [address] Department [place] [address] * Critical Care (04/16/2024 6:28 AM ORTHOPEDIC PHYSICIAN) Narrative Suzi Garrett MD - 04/16/2024 6:28 AM ORTHOPEDIC PHYSICIAN Jazmin Tirado NP 04/16/2024 4:20 PM Critical Care Performed by: Jazmin Tirado NP Authorized by: Jazmin Tirado NP CRITICAL CARE: Team: [facility] CT Shift: AM Level of Billing: Critical Care My time spent with this patient was 70 minutes: Critical Provider Statement: I have seen and examined the patient on this day of service. I have reviewed and confirmed the history, physical exam, laboratory and radiologic data as documented in the signed ICU note. I have reviewed and discussed my treatment plan with the ICU team and other medical/it architecture consultant staff, making frequent assessments and decisions regarding this patient's complex medical care. Critical Care time was exclusive of time spent performing separately billed procedures, treating other patients, and teaching. This time was in addition to and separate from critical care provided by other practitioners in my group on this day of service. Critical Care was necessary to treat or prevent imminent or life-threatening deterioration of the following conditions: I spent time reviewing and interpreting data from bedside monitors, laboratory results, and imaging, I spent time discussing the management of this critically ill patient with consultants and the medical staff and I spent time documenting in the medical record us Jazmin Aydee Celestino ANALYSIS REPORTING DEVELOPER IN CLINIC/BEDSIDE ORDERABL ES Final Result * POCT glucose (04/16/2024 5:58 AM ORTHOPEDIC PHYSICIAN) Glucose, POC 143 70 - 199 mg/dL Comment: For Glucose values <35 mg/dl when Hematocrit is >60 mg/dl,the test may not accurately detect significant hypoglycemia,and testing in the Laboratory should be considered if clinically indicated. Blood 04/16/2024 5:58 AM ORTHOPEDIC PHYSICIAN 04/16/2024 5:58 AM ORTHOPEDIC PHYSICIAN us Jaime Colin MD LAB POCT ORDERABLES - DE VICE Final Result [facility] [address] Department [place] [address] * XR Chest 1 View - Portable - in AM (04/16/2024 5:42 AM ORTHOPEDIC PHYSICIAN) Anatomical Region Laterality Modality Body, Chest N/A Computed Radiogr aphy 04/16/2024 7:33 AM ORTHOPEDIC PHYSICIAN Impressions 04/16/2024 7:33 AM ORTHOPEDIC PHYSICIAN Comparison is made to 04/15/2024. Endotracheal tube and nasogastric tubes have been removed. There is a mediastinal drain and left thoracostomy tube unchanged in position. [place]or[place]-Gaston catheter tip overlies the main pulmonary artery. Right internal jugular catheter tip overlies the superior vena cava. Mediastinal wires unchanged in position. There is a right basilar thoracostomy tube is well. There is a small posterior layering left pleural effusion with mild atelectasis. No pneumothorax is appreciated. The heart size is stable. Electronically signed by: Rashawn Samayoa M.D. Narrative 04/16/2024 7:33 AM ORTHOPEDIC PHYSICIAN Examination: Chest 1 view Procedure Note Rashawn Samayoa MD - 04/16/2024 Examination: Chest 1 view IMPRESSION: Comparison is made to 04/15/2024. Endotracheal tube and nasogastric tubes have been removed. There is a mediastinal drain and left thoracostomy tube unchanged in position. [place]-Gaston catheter tip overlies the main pulmonary artery. Right internal jugular catheter tip overlies the superior vena cava. Mediastinal wires unchanged in position. There is a right basilar thoracostomy tube is well. There is a small posterior layering left pleural effusion with mild atelectasis. No pneumothorax is appreciated. The heart size is stable. Electronically signed by: Rashawn Samayoa M.D. Georgia Reddy ANALYSIS REPORTING DEVELOPER IMG XR PROCEDURES Final Result * (ABNORMAL) Hemoglobin and hematocrit (04/16/2024 5:11 AM ORTHOPEDIC PHYSICIAN) [facility] Hgb 8.0(L) 13.0 - 17.5 g/dL Hct 24.6(L) 38.9 - 50.3 % [facility] Blood 04/16/2024 5:11 AM ORTHOPEDIC PHYSICIAN 04/16/2024 5:24 AM ORTHOPEDIC PHYSICIAN Result [facility] Aleshia Mckeon NP LAB BLOOD ORDERABLES F inal Result Performing Organization Address City/[facility]/ZIP Co de Phone Number [facility] [address] Department [employer] [place], [place] [id number] * Potassium (04/16/2024 5:11 AM ORTHOPEDIC PHYSICIAN) [facility] Potassium, pl 4.3 3.3 - 4.9 mmol/L Blood 04/16/2024 5:11 AM ORTHOPEDIC PHYSICIAN 04/16/2024 5:24 AM ORTHOPEDIC PHYSICIAN Result [facility] Aleshia Mckeon NP LAB BLOOD ORDERABLES F inal Result Performing Organization Address City/[facility]/ZIP Co de Phone Number [facility] [address] Department [place] [address] * Blood gas, arterial (04/16/2024 5:11 AM ORTHOPEDIC PHYSICIAN) [facility] pH, Art 7.42 7.35 - 7.45 PCO2, Arterial 37 35 - 45 mmHg [facility] PO2, Arterial 89 83 - 108 mmHg [facility] HCO3 Art (Calculated) 24 20 - 30 mmol/L [facility] BE, art 0 mmol/L [facility] Comment: Interpretive Data No Reference Range Established Current Interpretive Data was last revised on 2017 O2 Sat Art (Calculated) 97 94 - 98 % [facility] Blood 04/16/2024 5:11 AM ORTHOPEDIC PHYSICIAN 04/16/2024 5:19 AM ORTHOPEDIC PHYSICIAN Aleshia Mckeon ANALYSIS REPORTING DEVELOPER LAB BLOOD ORDERABLES F inal Result Performing Organization Address [facility]/ZIP Co de Phone Number [facility] [address] Department [place] [address] * POCT glucose (04/16/2024 4:00 AM ORTHOPEDIC PHYSICIAN) Glucose, POC 131 70 - 199 mg/dL Comment: For Glucose values <35 mg/dl when Hematocrit is >60 mg/dl,the test may not accurately detect significant hypoglycemia,and testing in the Laboratory should be considered if clinically indicated. Blood 04/16/2024 4:00 AM ORTHOPEDIC PHYSICIAN 04/16/2024 4:00 AM ORTHOPEDIC PHYSICIAN Jaime Colin MD LAB POCT ORDERABLES - DE VICE Final Result Performing Organization Address [facility] Co de Phone Number [facility] [address] Department [place] [address] * POCT glucose (04/16/2024 2:07 AM ORTHOPEDIC PHYSICIAN) Glucose, POC 141 70 - 199 mg/dL Comment: For Glucose values <35 mg/dl when Hematocrit is >60 mg/dl,the test may not accurately detect significant hypoglycemia,and testing in the Laboratory should be considered if clinically indicated. Blood 04/16/2024 2:07 AM ORTHOPEDIC PHYSICIAN 04/16/2024 2:07 AM ORTHOPEDIC PHYSICIAN Jaime Colin MD LAB POCT ORDERABLES - DE VICE Final Result Performing Organization Address [facility] Co de Phone Number [facility] [address] Department [place] [address] * POCT glucose (04/16/2024 1:01 AM ORTHOPEDIC PHYSICIAN) Glucose, POC 123 70 - 199 mg/dL Comment: For Glucose values <35 mg/dl when Hematocrit is >60 mg/dl,the test may not accurately detect significant hypoglycemia,and testing in the Laboratory should be considered if clinically indicated. Blood 04/16/2024 1:01 AM ORTHOPEDIC PHYSICIAN 04/16/2024 1:01 AM ORTHOPEDIC PHYSICIAN us Jaime Colin MD LAB POCT ORDERABLES - DE VICE Final Result Performing Organization Address [facility] Co de Phone Number [facility] [address] [facility] [employer] [place] [address] * Oxyhemoglobin, pulmonary artery (04/16/2024 12:22 AM ORTHOPEDIC PHYSICIAN) Pathologist [facility] Oxyhemoglobin, PA 67.4 % Comment: Interpretive Data No reference range established. Current interpretive data was last revised 2019. Blood 04/16/2024 12:2 2 AM ORTHOPEDIC PHYSICIAN 04/16/2024 12:24 AM ORTHOPEDIC PHYSICIAN Aleshia Mckeon NP LAB BLOOD ORDERABLES F inal Result Performing Organization Address [facility] Co de Phone Number [facility] [address] Department [place] [address] * POCT glucose (04/16/2024 12:11 AM ORTHOPEDIC PHYSICIAN) Glucose, POC 144 70 - 199 mg/dL Comment: For Glucose values <35 mg/dl when Hematocrit is >60 mg/dl,the test may not accurately detect significant hypoglycemia,and testing in the Laboratory should be considered if clinically indicated. Blood 04/16/2024 12:1 1 AM ORTHOPEDIC PHYSICIAN 04/16/2024 12:11 AM ORTHOPEDIC PHYSICIAN us Jaime Colin MD LAB POCT ORDERABLES - DE VICE Final Result [facility] [address] Department [place] [address] * (ABNORMAL) Lactate (04/16/2024 12:07 AM ORTHOPEDIC PHYSICIAN) Lactate 2.6(H) 0.7 - 2.0 mmol/L Blood 04/16/2024 12:0 7 AM ORTHOPEDIC PHYSICIAN 04/16/2024 12:24 AM ORTHOPEDIC PHYSICIAN Aleshia Mckeon NP LAB BLOOD ORDERABLES F inal Result Performing Organization Address [facility]/ZIP Co de Phone Number [facility] [address] Department [place] [address] * eGFR (04/16/2024 12:07 AM ORTHOPEDIC PHYSICIAN) eGFR 79 >=60 mL/min/1. 73 m2 Comment: Interpretive Data Reference Interval Normal >/= 90 mL/min/1.73m2 Mildly decreased* 60 - 89 mL/min/1.73m2 Mildly to moderately decreased 45 - 59 mL/min/1.73m2 Moderately to severely decreased 30 - 44 mL/min/1.73m2 Severely decreased 15 - 29 mL/min/1.73m2 Kidney Failure < 15 mL/min/1.73m2 *Relative to young adult level Estimated glomerular filtration rate is determined by the 2020 CKD-EPI equation recommended by the National Kidney [employer] (A Unifying Approach to GFR Estimation: Recommendations of the NKF-ASK Task Force on Reassessing the Inclusion of Race in Diagnosing Kidney Disease, JASN 2020). The CKD-EPI equation should not be used for patients with unstable renal function and has not been validated in children and those over 70. Current interpretive data was last reviewed 2021. Blood 04/16/2024 12:0 7 AM ORTHOPEDIC PHYSICIAN 04/16/2024 12:48 AM ORTHOPEDIC PHYSICIAN Aleshia Mckeon ANALYSIS REPORTING DEVELOPER LAB BLOOD ORDERABLES F inal Result [facility] [address] [facility] [employer] [place], [place] [phone] * Calcium, ionized (04/16/2024 12:07 AM ORTHOPEDIC PHYSICIAN) [facility] Calcium, Ionized 4.91 4.50 - 5.10 mg/dL Blood 04/16/2024 12:0 7 AM ORTHOPEDIC PHYSICIAN 04/16/2024 12:24 AM ORTHOPEDIC PHYSICIAN Georgia Reddy ANALYSIS REPORTING DEVELOPER LAB BLOOD ORDERABLES Fin al Result Performing Organization Address [facility]/ZIP Co de Phone Number [facility] [address] Department [place] [address] * (ABNORMAL) CBC without differential (04/16/2024 12:07 AM ORTHOPEDIC PHYSICIAN) [facility] WBC 12.9(H) 3.8 - 9.9 K/cumm Hgb 8.5(L) 13.0 - 17.5 g/dL [facility] Hct 26.0(L) 38.9 - 50.3 % [facility] Plt 108(L) 150 - 400 K/cumm [facility] MPV 11.3 9.1 - 12.3 fL [facility] RBC 2.77(L) 4.30 - 5.80 M/cumm [facility] MCV 93.9 81.3 - 96.4 fL [facility] MCH 30.7 27.1 - 33.3 pg [facility] MCHC 32.7 32.3 - 35.7 g/dL [facility] RDW CV 13.2 11.1 - 14.9 % [facility] RDW SD 44.9 35.7 - 48.1 fL [facility] NRBC abs 0.00 0.00 - 0.01 K/cumm [facility] Blood 04/16/2024 12:0 7 AM ORTHOPEDIC PHYSICIAN 04/16/2024 12:48 AM ORTHOPEDIC PHYSICIAN Georgia Marie Reddy ANALYSIS REPORTING DEVELOPER LAB BLOOD ORDERABLES Fin al Result Performing Organization Address City/[facility]/ZIP Co de Phone Number [facility] [address] Department [place] [address] * Magnesium (04/16/2024 12:07 AM ORTHOPEDIC PHYSICIAN) [facility] Magnesium 2.1 1.4 - 2.5 mg/dL Blood 04/16/2024 12:0 7 AM ORTHOPEDIC PHYSICIAN 04/16/2024 12:48 AM ORTHOPEDIC PHYSICIAN Georgia Salazar Maureen ANALYSIS REPORTING DEVELOPER LAB BLOOD ORDERABLES Fin al Result Performing Organization Address [facility] de Phone Number [facility] [address] Department [place] [address] * (ABNORMAL) Renal function panel (04/16/2024 12:07 AM ORTHOPEDIC PHYSICIAN) [facility] Sodium 144 135 - 145 mmol/L Potassium, pl 4.3 3.3 - 4.9 mmol/L [facility] Chloride 112(H) 97 - 110 mmol/L [facility] CO2 22 22 - 32 mmol/L [facility] Anion gap 10 2 - 15 mmol/L [facility] BUN 21 6 - 25 mg/dL [facility] Creatinine 1.08 0.80 - 1.30 mg/dL [facility] Glucose 136 70 - 199 mg/dL [facility] Comment: Interpretive Data Fasting glucose >/= 126 mg/dl is diagnostic for diabetes. Fasting is defined as no caloric intake for at least 8 hours. Fasting glucose between 100 mg/dl to 125 mg/dl is diagnostic of prediabetes. In a patient with classic symptoms of hyperglycemia or hyperglycemic crisis, a random glucose >/= 200 mg/dl is diagnostic for diabetes. In the absence of unequivocal hyperglycemia, results should be confirmed by repeat testing. The classification and Diagnosis of Diabetes Diabetes Care 2021; 46: S19-S40. Current interpretive data was last revised 2022. Calcium 8.5 8.5 - 10.3 mg/dL [facility] Phosphorus, pl 3.6 2.3 - 4.5 mg/dL [facility] Albumin 3.2(L) 3.5 - 5.0 g/dL [facility] Blood 04/16/2024 12:0 7 AM ORTHOPEDIC PHYSICIAN 04/16/2024 12:48 AM ORTHOPEDIC PHYSICIAN Georgia Reddy NP LAB BLOOD ORDERABLES Fin al Result Performing Organization Address City/[facility]/ZIP Co de Phone Number [facility] [address] Department [place] [address] * POCT glucose (04/15/2024 11:06 PM ORTHOPEDIC PHYSICIAN) [facility] Glucose, POC 129 70 - 199 mg/dL Comment: For Glucose values <35 mg/dl when Hematocrit is >60 mg/dl,the test may not accurately detect significant hypoglycemia,and testing in the Laboratory should be considered if clinically indicated. Blood 04/15/2024 11:0 6 PM ORTHOPEDIC PHYSICIAN 04/15/2024 11:06 PM ORTHOPEDIC PHYSICIAN us Jaime Colin MD LAB POCT ORDERABLES - DE VICE Final Result Performing Organization Address [facility] Co de Phone Number [facility] [address] Department [place] [address] * Critical Care (04/15/2024 11:02 PM ORTHOPEDIC PHYSICIAN) Narrative Suzi Garrett MD - 04/15/2024 11:02 PM ORTHOPEDIC PHYSICIAN Aleshia Mckeon NP 04/16/2024 7:13 AM Critical Care Performed by: Aleshia Mckeon NP Authorized by: Aleshia Mckeon NP CRITICAL CARE: Team: [facility] CT Shift: PM Level of Billing: Critical Care My time spent with this patient was 100 minutes: Critical Provider Statement: I have seen and examined the patient on this day of service. I have reviewed and confirmed the history, physical exam, laboratory and radiologic data as documented in the signed ICU note. I have reviewed and discussed my treatment plan with the ICU team and other medical/it architecture consultant staff, making frequent assessments and decisions regarding this patient's complex medical care. Critical Care time was exclusive of time spent performing separately billed procedures, treating other patients, and teaching. This time was in addition to and separate from critical care provided by other practitioners in my group on this day of service. Critical Care was necessary to treat or prevent imminent or life-threatening deterioration of the following conditions: I spent time reviewing and interpreting data from bedside monitors, laboratory results, and imaging, I spent time discussing the management of this critically ill patient with consultants and the medical staff and I spent time documenting in the medical record Aleshia Mckeon NP IN CLINIC/BEDSIDE JUSTINA ANDRADE Final Result * POCT glucose (04/15/2024 9:53 PM ORTHOPEDIC PHYSICIAN) Glucose, POC 145 70 - 199 mg/dL Comment: For Glucose values <35 mg/dl when Hematocrit is >60 mg/dl,the test may not accurately detect significant hypoglycemia,and testing in the Laboratory should be considered if clinically indicated. Blood 04/15/2024 9:53 PM ORTHOPEDIC PHYSICIAN 04/15/2024 9:53 PM ORTHOPEDIC PHYSICIAN Jaime Colin MD LAB POCT ORDERABLES - DE VICE Final Result Performing Organization Address [facility] Co de Phone Number [facility] [address] Department [place] [address] * POCT glucose (04/15/2024 8:59 PM ORTHOPEDIC PHYSICIAN) Glucose, POC 147 70 - 199 mg/dL Comment: For Glucose values <35 mg/dl when Hematocrit is >60 mg/dl,the test may not accurately detect significant hypoglycemia,and testing in the Laboratory should be considered if clinically indicated. Blood 04/15/2024 8:59 PM ORTHOPEDIC PHYSICIAN 04/15/2024 8:59 PM ORTHOPEDIC PHYSICIAN Jaime Colin MD LAB POCT ORDERABLES - DE VICE Final Result Performing Organization Address [facility]/ZIP Co de Phone Number [facility] [address] Department [place] [address] * POCT glucose (04/15/2024 8:04 PM ORTHOPEDIC PHYSICIAN) [facility] Signature Glucose, POC 137 70 - 199 mg/dL Comment: For Glucose values <35 mg/dl when Hematocrit is >60 mg/dl,the test may not accurately detect significant hypoglycemia,and testing in the Laboratory should be considered if clinically indicated. Blood 04/15/2024 8:04 PM ORTHOPEDIC PHYSICIAN 04/15/2024 8:04 PM ORTHOPEDIC PHYSICIAN us Jaime Colin MD LAB POCT ORDERABLES - DE VICE Final Result [facility] [address] Department [place] [address] * XR Chest 1 View - Portable (04/15/2024 7:09 PM ORTHOPEDIC PHYSICIAN) Anatomical Region Laterality Modality Body, Chest N/A Computed Radiogr aphy 04/16/2024 7:03 AM ORTHOPEDIC PHYSICIAN Impressions 04/16/2024 7:03 AM ORTHOPEDIC PHYSICIAN Comparison with 04/14/20242024. Trace pulmonary edema stable. Endotracheal tube has its tip 4 cm above the magaly. Nasogastric tube projects below the hemidiaphragm. Eldorado-Gaston catheter projects over the main pulmonary artery. Central venous catheter projects over the superior vena cava. There is no pneumothorax. Sternal wires midline and nondisplaced. Electronically signed by: Alexander Evangelista M.D., MPH Narrative 04/16/2024 7:03 AM ORTHOPEDIC PHYSICIAN EXAMINATION: 1 view chest radiograph Procedure Note Alexander Evangelista MD - 04/16/2024 EXAMINATION: 1 view chest radiograph IMPRESSION: Comparison with 04/14/20242024. Trace pulmonary edema stable. Endotracheal tube has its tip 4 cm above the magaly. Nasogastric tube projects below the hemidiaphragm. Eldorado-Gaston catheter projects over the main pulmonary artery. Central venous catheter projects over the superior vena cava. There is no pneumothorax. Sternal wires midline and nondisplaced. Electronically signed by: Alexander Evangelista M.D., MPH Aleshia Mckeon NP IMG XR PROCEDURES Gail l Result * eGFR (04/15/2024 7:06 PM ORTHOPEDIC PHYSICIAN) eGFR 71 >=60 mL/min/1. 73 m2 Comment: Interpretive Data Reference Interval Normal >/= 90 mL/min/1.73m2 Mildly decreased* 60 - 89 mL/min/1.73m2 Mildly to moderately decreased 45 - 59 mL/min/1.73m2 Moderately to severely decreased 30 - 44 mL/min/1.73m2 Severely decreased 15 - 29 mL/min/1.73m2 Kidney Failure < 15 mL/min/1.73m2 *Relative to young adult level Estimated glomerular filtration rate is determined by the 2020 CKD-EPI equation recommended by the National Kidney Foundation (A Unifying Approach to GFR Estimation: Recommendations of the NKF-ASK Task Force on Reassessing the Inclusion of Race in Diagnosing Kidney Disease, JASN 2020). The CKD-EPI equation should not be used for patients with unstable renal function and has not been validated in children and those over 70. Current interpretive data was last reviewed 2021. Blood 04/15/2024 7:06 PM ORTHOPEDIC PHYSICIAN 04/15/2024 7:21 PM ORTHOPEDIC PHYSICIAN Result [facility] Aleshia Mckeon NP LAB BLOOD ORDERABLES F inal Result [facility] [address] Department [place] [address] * Phosphorus (04/15/2024 7:06 PM ORTHOPEDIC PHYSICIAN) Pathologist [facility] Phosphorus, pl 3.1 2.3 - 4.5 mg/dL Blood 04/15/2024 7:06 PM ORTHOPEDIC PHYSICIAN 04/15/2024 7:21 PM ORTHOPEDIC PHYSICIAN Aleshia Liz Mckeon ANALYSIS REPORTING DEVELOPER LAB BLOOD ORDERABLES F inal Result Performing Organization Address City/[facility]/ZIP Co de Phone Number [facility] [address] [facility] [employer] [place] [address] * Magnesium (04/15/2024 7:06 PM ORTHOPEDIC PHYSICIAN) [facility] Magnesium 2.3 1.4 - 2.5 mg/dL Blood 04/15/2024 7:06 PM ORTHOPEDIC PHYSICIAN 04/15/2024 7:21 PM ORTHOPEDIC PHYSICIAN Aleshia Liz Mckeon ANALYSIS REPORTING DEVELOPER LAB BLOOD ORDERABLES F inal Result Performing Organization Address [facility] Co de Phone Number [facility] [address] [employer] [place] [address] * Bilirubin, direct (04/15/2024 7:06 PM ORTHOPEDIC PHYSICIAN) [facility] Bilirubin, direct 0.3 0.1 - 0.3 mg/dL Comment:Slightly Hemolyzed S pecimen Blood 04/15/2024 7:06 PM ORTHOPEDIC PHYSICIAN 04/15/2024 7:21 PM ORTHOPEDIC PHYSICIAN Aleshia Liz Mckeon ANALYSIS REPORTING DEVELOPER LAB BLOOD ORDERABLES F inal Result Performing Organization Address City/[facility] Co de Phone Number [facility] [address] [place] [address] * (ABNORMAL) Comprehensive metabolic panel (04/15/2024 7:06 PM ORTHOPEDIC PHYSICIAN) [facility] Sodium 144 135 - 145 mmol/L Potassium, pl 5.2(H) 3.3 - 4.9 mmol/L [facility] Chloride 111(H) 97 - 110 mmol/L [facility] CO2 23 22 - 32 mmol/L [facility] Anion gap 10 2 - 15 mmol/L [facility] BUN 21 6 - 25 mg/dL [facility] Creatinine 1.18 0.80 - 1.30 mg/dL [facility] Glucose 139 70 - 199 mg/dL [facility] Comment: Interpretive Data Fasting glucose >/= 126 mg/dl is diagnostic for diabetes. Fasting is defined as no caloric intake for at least 8 hours. Fasting glucose between 100 mg/dl to 125 mg/dl is diagnostic of prediabetes. In a patient with classic symptoms of hyperglycemia or hyperglycemic crisis, a random glucose >/= 200 mg/dl is diagnostic for diabetes. In the absence of unequivocal hyperglycemia, results should be confirmed by repeat testing. The classification and Diagnosis of Diabetes Diabetes Care 2021; 46: S19-S40. Current interpretive data was last revised 2022. Calcium 7.6(L) 8.5 - 10.3 mg/dL [facility] Bilirubin, total 0.7 0.1 - 1.2 mg/dL [facility] Protein, pl 4.7(L) 6.5 - 8.5 g/dL [facility] Albumin 2.6(L) 3.5 - 5.0 g/dL [facility] Alk phos 27(L) 40 - 130 Units/L [facility] ALT 23 7 - 55 Units/L [facility] AST 58(H) 10 - 50 Units/L [facility] Comment:Slightly Hemolyzed S pecimen Blood 04/15/2024 7:06 PM ORTHOPEDIC PHYSICIAN 04/15/2024 7:21 PM ORTHOPEDIC PHYSICIAN Aleshia Mckeon NP LAB BLOOD ORDERABLES F inal Result [facility] [address] Department of Laboratories [place], [place] [id number] * (ABNORMAL) Lactate (04/15/2024 6:46 PM ORTHOPEDIC PHYSICIAN) Lactate 2.9(H) 0.7 - 2.0 mmol/L Blood 04/15/2024 6:46 PM ORTHOPEDIC PHYSICIAN 04/15/2024 6:53 PM ORTHOPEDIC PHYSICIAN Aleshia Mckeon NP LAB BLOOD ORDERABLES F inal Result Performing Organization Address City/[facility] Co de Phone Number [facility] [address] [facility] [employer] [place], [place] [id number] * Calcium, ionized (04/15/2024 6:46 PM ORTHOPEDIC PHYSICIAN) Pathologist [facility] Calcium, Ionized 4.56 4.50 - 5.10 mg/dL Blood 04/15/2024 6:46 PM ORTHOPEDIC PHYSICIAN 04/15/2024 6:54 PM ORTHOPEDIC PHYSICIAN Aleshiageogres Mckeon NP LAB BLOOD ORDERABLES F inal Result Performing Organization Address [facility] Co de Phone Number [facility] [address] [facility] [employer] [place] [address] * aPTT (04/15/2024 6:46 PM ORTHOPEDIC PHYSICIAN) Pathologist [facility] aPTT 29 28 - 38 sec Comment: Interpretive Data Heparin therapeutic range: 66.0 - 100.0 seconds. Range based on correlation with therapeutic heparin activity range of 0.3 - 0.7 Units/mL. Current interpretive data was last revised on 2023. Blood 04/15/2024 6:46 PM ORTHOPEDIC PHYSICIAN 04/15/2024 7:20 PM ORTHOPEDIC PHYSICIAN Result [facility] Aleshiasandy Mckeon NP LAB BLOOD ORDERABLES F inal Result Performing Organization Address [facility] Co de Phone Number [facility] [address] [facility] [employer] [place] [address] * Protime-INR (04/15/2024 6:46 PM ORTHOPEDIC PHYSICIAN) Pathologist [facility] PT 13.0 9.7 - 13.0 sec INR 1.20 0.90 - 1.20 [facility]DE[facility] Comment: Interpretive data Oral anticoagulant therapeutic ranges: Venous thromboembolism prophylaxis or treatment: 2.0-3.0 CARDIOLOGY Standard range: 2.0-3.0 High-intensity range: 2.5-3.5 Refer to indication-specific guidelines for appropriate target ranges for prosthetic heart valve replacement. Current interpretive data was last revised on 2019. Blood 04/15/2024 6:46 PM ORTHOPEDIC PHYSICIAN 04/15/2024 7:20 PM ORTHOPEDIC PHYSICIAN us Aleshia Mckeon NP LAB BLOOD ORDERABLES F inal Result Performing Organization Address [facility]/ZIP Co de Phone Number [facility] [address] [facility] [employer] [place] [address] * Fibrinogen (04/15/2024 6:46 PM ORTHOPEDIC PHYSICIAN) Pathologist [facility] Fibrinogen 184 170 - 400 mg/dL Blood 04/15/2024 6:46 PM ORTHOPEDIC PHYSICIAN 04/15/2024 6:46 PM ORTHOPEDIC PHYSICIAN Jaime Colin MD LAB BLOOD ORDERABLES Fin al Result Performing Organization Address [facility] Co de Phone Number [facility] [address] [employer] [place] [address] * (ABNORMAL) CBC without differential (04/15/2024 6:46 PM ORTHOPEDIC PHYSICIAN) Pathologist [facility] WBC 13.4(H) 3.8 - 9.9 K/cumm Hgb 9.4(L) 13.0 - 17.5 g/dL [facility] Hct 27.8(L) 38.9 - 50.3 % [facility] Plt 122(L) 150 - 400 K/cumm [facility] MPV 10.5 9.1 - 12.3 fL [facility] RBC 3.10(L) 4.30 - 5.80 M/cumm [facility] MCV 89.7 81.3 - 96.4 fL [facility] MCH 30.3 27.1 - 33.3 pg [facility] MCHC 33.8 32.3 - 35.7 g/dL [facility] RDW CV 12.9 11.1 - 14.9 % [facility] RDW SD 42.4 35.7 - 48.1 fL [facility] NRBC abs 0.00 0.00 - 0.01 K/cumm [facility] Blood 04/15/2024 6:46 PM ORTHOPEDIC PHYSICIAN 04/15/2024 7:20 PM ORTHOPEDIC PHYSICIAN Result [facility] Aleshia Mckeon NP LAB BLOOD ORDERABLES F inal Result Performing Organization Address [facility] Co de Phone Number [facility] [address] Department [place] [address] * (ABNORMAL) Blood gas, arterial (04/15/2024 6:46 PM ORTHOPEDIC PHYSICIAN) pH, Art 7.36 7.35 - 7.45 PCO2, Arterial 41 35 - 45 mmHg [facility] PO2, Arterial 170(H) 83 - 108 mmHg [facility] HCO3 Art (Calculated) 23 20 - 30 mmol/L [facility] BE, art -2 mmol/L [facility] Comment: Interpretive Data No Reference Range Established Current Interpretive Data was last revised on 2017 O2 Sat Art (Calculated) 100(H) 94 - 98 % [facility] Blood 04/15/2024 6:46 PM ORTHOPEDIC PHYSICIAN 04/15/2024 6:54 PM ORTHOPEDIC PHYSICIAN Result [facility] Aleshia Mckeon NP LAB BLOOD ORDERABLES F inal Result Performing Organization Address [facility] Co de Phone Number [facility] [address] Department [place] [address] * POCT glucose (04/15/2024 6:35 PM ORTHOPEDIC PHYSICIAN) Glucose, POC 137 70 - 199 mg/dL Comment: For Glucose values <35 mg/dl when Hematocrit is >60 mg/dl,the test may not accurately detect significant hypoglycemia,and testing in the Laboratory should be considered if clinically indicated. Blood 04/15/2024 6:35 PM ORTHOPEDIC PHYSICIAN 04/15/2024 6:35 PM ORTHOPEDIC PHYSICIAN Chico Ruff MD LAB POCT ORDERABLES - DEVICE Final Result Performing Organization Address [facility] de Phone Number [facility] [address] [facility] [employer] [place] [address] * aPTT (04/15/2024 5:40 PM ORTHOPEDIC PHYSICIAN) aPTT 31 28 - 38 sec Comment: Interpretive Data Heparin therapeutic range: 66.0 - 100.0 seconds. Range based on correlation with therapeutic heparin activity range of 0.3 - 0.7 Units/mL. Current interpretive data was last revised on 2023. Blood 04/15/2024 5:40 PM ORTHOPEDIC PHYSICIAN 04/15/2024 5:45 PM ORTHOPEDIC PHYSICIAN Jaime Colin MD LAB BLOOD ORDERABLES Fin al Result Performing Organization Address [facility] de Phone Number [facility] [address] [facility] [place] [address] * (ABNORMAL) Protime-INR (04/15/2024 5:40 PM ORTHOPEDIC PHYSICIAN) PT 16.0(H) 9.7 - 13.0 sec INR 1.47(H) 0.90 - 1.20 [facility] Comment: Interpretive data Oral anticoagulant therapeutic ranges: Venous thromboembolism prophylaxis or treatment: 2.0-3.0 CARDIOLOGY Standard range: 2.0-3.0 High-intensity range: 2.5-3.5 Refer to indication-specific guidelines for appropriate target ranges for prosthetic heart valve replacement. Current interpretive data was last revised on 2019. Blood 04/15/2024 5:40 PM ORTHOPEDIC PHYSICIAN 04/15/2024 5:45 PM ORTHOPEDIC PHYSICIAN Jaime Colin MD LAB BLOOD ORDERABLES Fin al Result Performing Organization Address [facility] Co de Phone Number [facility] [address] [facility] [employer] [place], [place] [id number] * Fibrinogen (04/15/2024 5:40 PM ORTHOPEDIC PHYSICIAN) Fibrinogen 193 170 - 400 mg/dL Blood 04/15/2024 5:40 PM ORTHOPEDIC PHYSICIAN 04/15/2024 5:45 PM ORTHOPEDIC PHYSICIAN Jaime Colin MD LAB BLOOD ORDERABLES Fin al Result Performing Organization Address [facility] Co de Phone Number [facility] [address] [employer] [place], [place] [id number] * (ABNORMAL) CBC without differential (04/15/2024 5:40 PM ORTHOPEDIC PHYSICIAN) Pathologist [facility] WBC 16.4(H) 3.8 - 9.9 K/cumm Hgb 8.6(L) 13.0 - 17.5 g/dL [facility] Comment:Hemoglobin delta due to surgical procedure. Hct 26.0(L) 38.9 - 50.3 % [facility] Plt 138(L) 150 - 400 K/cumm [facility] MPV 11.1 9.1 - 12.3 fL [facility] RBC 2.83(L) 4.30 - 5.80 M/cumm [facility] MCV 91.9 81.3 - 96.4 fL [facility] MCH 30.4 27.1 - 33.3 pg [facility] MCHC 33.1 32.3 - 35.7 g/dL [facility] RDW CV 12.9 11.1 - 14.9 % [facility] RDW SD 42.8 35.7 - 48.1 fL [facility] NRBC abs 0.00 0.00 - 0.01 K/cumm [facility] Blood 04/15/2024 5:40 PM ORTHOPEDIC PHYSICIAN 04/15/2024 5:45 PM ORTHOPEDIC PHYSICIAN Jaime Colin MD LAB BLOOD ORDERABLES Fin al Result Performing Organization Address [facility]/ZIP Co de Phone Number [facility] [address] [facility] [employer] [place], [place] [id number] * POCT glucose (04/15/2024 5:28 PM ORTHOPEDIC PHYSICIAN) [facility] Glucose, POC 156 70 - 199 mg/dL Comment: For Glucose values <35 mg/dl when Hematocrit is >60 mg/dl,the test may not accurately detect significant hypoglycemia,and testing in the Laboratory should be considered if clinically indicated. Blood 04/15/2024 5:28 PM ORTHOPEDIC PHYSICIAN 04/15/2024 5:28 PM ORTHOPEDIC PHYSICIAN us Chico Ruff MD LAB POCT ORDERABLES - DEVICE Final Result Performing Organization Address [facility] de Phone Number [facility] [address] [facility] [employer] [place], [place] [phone] * Prepare RBC (04/15/2024 5:28 PM ORTHOPEDIC PHYSICIAN) [facility] Product code [id number] Unit Number [id number] F [facility] Product Blood Type OPOS [facility] Dispense Status PRESUMED TRANSFUSED [facility] Product code [id number] [facility] Unit Number [id number] [facility] Product Blood Type OPOS [facility] Dispense Status PRESUMED TRANSFUSED [facility] Blood 04/15/2024 5:28 PM ORTHOPEDIC PHYSICIAN 04/15/2024 5:28 PM ORTHOPEDIC PHYSICIAN us Chico Ruff MD BLOOD BANK PRODUCT ORDERABLES Final Result Performing Organization Address [facility] de Phone Number [facility] [address] [employer] [place] [address] * POC Activated Clotting Time, High Range (04/15/2024 5:16 PM ORTHOPEDIC PHYSICIAN) [facility] ACT 102 87 - 138 sec Blood 04/15/2024 5:16 PM ORTHOPEDIC PHYSICIAN 04/15/2024 5:16 PM ORTHOPEDIC PHYSICIAN us Chico Ruff MD LAB BLOOD ORDERABLES Final Re sult Performing Organization Address [facility]/State/ZIP Co de Phone Number [facility] [address] Department [place] [address] * (ABNORMAL) POC Blood Gas and Chemistries, Arterial - (04/15/2024 5:16 PM ORTHOPEDIC PHYSICIAN) pH, Art POC 7.34(L) 7.35 - 7.45 pCO2, Art POC 42 35 - 45 mmHg [facility] pO2, Art POC 106 80 - 108 mmHg [facility] Na, POC 138 135 - 145 mmol/L [facility] K POC 5.4(H) 3.3 - 4.9 mmol/L [facility] Comment: Interpretive Data This method is not able to assess for hemolysis, which may falsely increase potassium concentrations. If further testing is needed to evaluate this result, consider in-laboratory plasma potassium. Current Interpretive Data was last revised on 2021. Cl, POC 112(H) 97 - 110 mmol/L [facility] Ionized Ca, POC 4.90 4.50 - 5.10 mg/dL [facility] Glucose, POC 167 70 - 199 mg/dL [facility] Lactate, POC 2.5(H) 0.0 - 2.0 mmol/L [facility] O2Hb, Art POC 96.8(H) 90.0 - 95.0 % [facility] Carboxhgb fract 0.6 0.0 - 2.9 % [facility] Methemoglobin 0.9 0.0 - 1.9 % [facility] HHb, POC 1.7 0.0 - 5.0 % [facility] SO2 (renny) arterial 98(H) 90 - 95 % [facility] Total CO2, Art POC 24 22 - 32 mmol/L [facility] BE, art, POC -2.9(L) -2.0 - 2.0 mmol/L [facility] HCO3, Art POC 23 20 - 30 mmol/L [facility] Hct, POC 26.0(L) 38.9 - 50.3 % [facility] Total Hb, POC 8.8(L) 13.0 - 17.5 g/dL [facility] Blood 04/15/2024 5:16 PM ORTHOPEDIC PHYSICIAN 04/15/2024 5:16 PM ORTHOPEDIC PHYSICIAN us Chico Ruff MD LAB POCT ORDERABLES - DEVICE Final Result [facility] [address] Department [place] [address] * (ABNORMAL) POC Blood Gas and Chemistries, Arterial - (04/15/2024 4:47 PM ORTHOPEDIC PHYSICIAN) pH, Art POC 7.36 7.35 - 7.45 pCO2, Art POC 45 35 - 45 mmHg [facility] pO2, Art POC 255(H) 80 - 108 mmHg [facility] Na, POC 139 135 - 145 mmol/L [facility] K POC 5.2(H) 3.3 - 4.9 mmol/L [facility] Comment: Interpretive Data This method is not able to assess for hemolysis, which may falsely increase potassium concentrations. If further testing is needed to evaluate this result, consider in-laboratory plasma potassium. Current Interpretive Data was last revised on 2021. Cl, POC 113(H) 97 - 110 mmol/L [facility] Ionized Ca, POC 4.90 4.50 - 5.10 mg/dL [facility] Glucose, POC 123 70 - 199 mg/dL [facility] Lactate, POC 2.5(H) 0.0 - 2.0 mmol/L [facility] O2Hb, Art POC 97.9(H) 90.0 - 95.0 % [facility] Carboxhgb fract 0.8 0.0 - 2.9 % [facility] Methemoglobin 1.0 0.0 - 1.9 % [facility] HHb, POC 0.3 0.0 - 5.0 % [facility] SO2 (renny) arterial 100(H) 90 - 95 % [facility] Total CO2, Art POC 27 22 - 32 mmol/L [facility] BE, art, POC -0.2 -2.0 - 2.0 mmol/L [facility] HCO3, Art POC 25 20 - 30 mmol/L [facility] Hct, POC 26.0(L) 38.9 - 50.3 % [facility] Total Hb, POC 8.6(L) 13.0 - 17.5 g/dL [facility] Blood 04/15/2024 4:47 PM ORTHOPEDIC PHYSICIAN 04/15/2024 4:47 PM ORTHOPEDIC PHYSICIAN us Chico Ruff MD LAB POCT ORDERABLES - DEVICE Final Result Performing Organization Address [facility]/ZIP Co de Phone Number [facility] [address] [employer] [place] [employer] [place] [address] * (ABNORMAL) POC Activated Clotting Time, High Range (04/15/2024 4:46 PM ORTHOPEDIC PHYSICIAN) ACT 539(H) 87 - 138 sec Blood 04/15/2024 4:46 PM ORTHOPEDIC PHYSICIAN 04/15/2024 4:46 PM ORTHOPEDIC PHYSICIAN us Chico Ruff MD LAB BLOOD ORDERABLES Final Re sult Performing Organization Address [facility] Co de Phone Number [facility] [address] [employer] [place] [employer] [place] [address] * (ABNORMAL) POC Blood Gas and Chemistries, Arterial - (04/15/2024 4:03 PM ORTHOPEDIC PHYSICIAN) pH, Art POC 7.33(L) 7.35 - 7.45 pCO2, Art POC 48(H) 35 - 45 mmHg [facility] pO2, Art POC 386(H) 80 - 108 mmHg [facility] Na, POC 138 135 - 145 mmol/L [facility] K POC 6.2(C) 3.3 - 4.9 mmol/L [facility] Comment: Interpretive Data This method is not able to assess for hemolysis, which may falsely increase potassium concentrations. If further testing is needed to evaluate this result, consider in-laboratory plasma potassium. Current Interpretive Data was last revised on 2021. Cl, POC 109 97 - 110 mmol/L [facility] Ionized Ca, POC 4.43(L) 4.50 - 5.10 mg/dL [facility] Glucose, POC 136 70 - 199 mg/dL [facility] Lactate, POC 2.7(H) 0.0 - 2.0 mmol/L [facility] O2Hb, Art POC 97.8(H) 90.0 - 95.0 % [facility] Carboxhgb fract 0.8 0.0 - 2.9 % [facility] Methemoglobin 1.1 0.0 - 1.9 % [facility] HHb, POC 0.3 0.0 - 5.0 % [facility] SO2 (renny) arterial 100(H) 90 - 95 % [facility] Total CO2, Art POC 27 22 - 32 mmol/L [facility] BE, art, POC -0.8 -2.0 - 2.0 mmol/L [facility] HCO3, Art POC 24 20 - 30 mmol/L [facility] Hct, POC 26.0(L) 38.9 - 50.3 % [facility] Total Hb, POC 8.8(L) 13.0 - 17.5 g/dL [facility] Blood 04/15/2024 4:03 PM ORTHOPEDIC PHYSICIAN 04/15/2024 4:03 PM ORTHOPEDIC PHYSICIAN us Chico Ruff MD LAB POCT ORDERABLES - DEVICE Final Result Performing Organization Address [facility] Co de Phone Number [facility] [address] [place] [place] [address] * (ABNORMAL) POC Activated Clotting Time, High Range (04/15/2024 4:02 PM ORTHOPEDIC PHYSICIAN) ACT 529(H) 87 - 138 sec Blood 04/15/2024 4:02 PM ORTHOPEDIC PHYSICIAN 04/15/2024 4:02 PM ORTHOPEDIC PHYSICIAN us Chico Ruff MD LAB BLOOD ORDERABLES Final Re sult Performing Organization Address [facility] Co de Phone Number [facility] [address] Department [place] [address] * (ABNORMAL) POC Blood Gas and Chemistries, Arterial - (04/15/2024 3:31 PM ORTHOPEDIC PHYSICIAN) pH, Art POC 7.34(L) 7.35 - 7.45 pCO2, Art POC 46(H) 35 - 45 mmHg [facility] pO2, Art POC 339(H) 80 - 108 mmHg [facility] Na, POC 137 135 - 145 mmol/L [facility] K POC 5.5(H) 3.3 - 4.9 mmol/L [facility] Comment: Interpretive Data This method is not able to assess for hemolysis, which may falsely increase potassium concentrations. If further testing is needed to evaluate this result, consider in-laboratory plasma potassium. Current Interpretive Data was last revised on 2021. Cl, POC 109 97 - 110 mmol/L [facility] Ionized Ca, POC 4.36(L) 4.50 - 5.10 mg/dL [facility] Glucose, POC 150 70 - 199 mg/dL [facility] Lactate, POC 2.3(H) 0.0 - 2.0 mmol/L [facility] O2Hb, Art POC 97.6(H) 90.0 - 95.0 % [facility] Carboxhgb fract 0.2 0.0 - 2.9 % [facility] Methemoglobin 1.0 0.0 - 1.9 % [facility] HHb, POC 1.2 0.0 - 5.0 % [facility] SO2 (renny) arterial 99(H) 90 - 95 % [facility] Total CO2, Art POC 26 22 - 32 mmol/L [facility] BE, art, POC -1.1 -2.0 - 2.0 mmol/L [facility] HCO3, Art POC 24 20 - 30 mmol/L [facility] Hct, POC 28.0(L) 38.9 - 50.3 % [facility] Total Hb, POC 9.2(L) 13.0 - 17.5 g/dL [facility] Blood 04/15/2024 3:31 PM ORTHOPEDIC PHYSICIAN 04/15/2024 3:31 PM ORTHOPEDIC PHYSICIAN us Chico Ruff MD LAB POCT ORDERABLES - DEVICE Final Result Performing Organization Address City/[facility]/ZIP Co de Phone Number [facility] [address] [employer] [place] [address] * (ABNORMAL) POC Activated Clotting Time, High Range (04/15/2024 3:30 PM ORTHOPEDIC PHYSICIAN) Pathologist [facility] ACT 658(H) 87 - 138 sec Blood 04/15/2024 3:30 PM ORTHOPEDIC PHYSICIAN 04/15/2024 3:30 PM ORTHOPEDIC PHYSICIAN us Chico Ruff MD LAB BLOOD ORDERABLES Final Re sult Performing Organization Address [facility] Co de Phone Number [facility] [address] Department [place] [address] * (ABNORMAL) POC Blood Gas and Chemistries, Arterial - (04/15/2024 3:03 PM ORTHOPEDIC PHYSICIAN) [facility] pH, Art POC 7.42 7.35 - 7.45 pCO2, Art POC 43 35 - 45 mmHg [facility] pO2, Art POC 358(H) 80 - 108 mmHg [facility] Na, POC 136 135 - 145 mmol/L [facility] K POC 5.7(H) 3.3 - 4.9 mmol/L [facility] Comment: Interpretive Data This method is not able to assess for hemolysis, which may falsely increase potassium concentrations. If further testing is needed to evaluate this result, consider in-laboratory plasma potassium. Current Interpretive Data was last revised on 2021. Cl, POC 107 97 - 110 mmol/L [facility] Ionized Ca, POC 4.34(L) 4.50 - 5.10 mg/dL [facility] Glucose, POC 158 70 - 199 mg/dL [facility] Lactate, POC 2.2(H) 0.0 - 2.0 mmol/L [facility] O2Hb, Art POC 98.0(H) 90.0 - 95.0 % [facility] Carboxhgb fract 0.5 0.0 - 2.9 % [facility] Methemoglobin 0.8 0.0 - 1.9 % [facility] HHb, POC 0.8 0.0 - 5.0 % [facility] SO2 (renny) arterial 99(H) 90 - 95 % [facility] Total CO2, Art POC 29 22 - 32 mmol/L [facility] BE, art, POC 3.1(H) -2.0 - 2.0 mmol/L [facility] HCO3, Art POC 27 20 - 30 mmol/L [facility] Hct, POC 29.0(L) 38.9 - 50.3 % [facility] Total Hb, POC 9.5(L) 13.0 - 17.5 g/dL [facility] Blood 04/15/2024 3:03 PM ORTHOPEDIC PHYSICIAN 04/15/2024 3:03 PM ORTHOPEDIC PHYSICIAN us Chico Ruff MD LAB POCT ORDERABLES - DEVICE Final Result Performing Organization Address [facility] Co de Phone Number [facility] [address] [employer] [place] [address] * (ABNORMAL) POC Activated Clotting Time, High Range (04/15/2024 3:02 PM ORTHOPEDIC PHYSICIAN) Pathologist [facility] ACT 524(H) 87 - 138 sec Blood 04/15/2024 3:02 PM ORTHOPEDIC PHYSICIAN 04/15/2024 3:02 PM ORTHOPEDIC PHYSICIAN us Chico Ruff MD LAB BLOOD ORDERABLES Final Re sult Performing Organization Address [facility]/ZIP Co de Phone Number [facility] [address] [employer] [place] [address] * (ABNORMAL) POC Blood Gas and Chemistries, Arterial - (04/15/2024 2:27 PM ORTHOPEDIC PHYSICIAN) pH, Art POC 7.35 7.35 - 7.45 pCO2, Art POC 43 35 - 45 mmHg [facility] pO2, Art POC 318(H) 80 - 108 mmHg [facility] Na, POC 136 135 - 145 mmol/L [facility] K POC 5.7(H) 3.3 - 4.9 mmol/L [facility] Comment: Interpretive Data This method is not able to assess for hemolysis, which may falsely increase potassium concentrations. If further testing is needed to evaluate this result, consider in-laboratory plasma potassium. Current Interpretive Data was last revised on 2021. Cl, POC 108 97 - 110 mmol/L [facility] Ionized Ca, POC 4.66 4.50 - 5.10 mg/dL [facility] Glucose, POC 162 70 - 199 mg/dL [facility] Lactate, POC 1.8 0.0 - 2.0 mmol/L [facility] O2Hb, Art POC 98.0(H) 90.0 - 95.0 % [facility] Carboxhgb fract 0.3 0.0 - 2.9 % [facility] Methemoglobin 1.0 0.0 - 1.9 % [facility] HHb, POC 0.7 0.0 - 5.0 % [facility] SO2 (renny) arterial 99(H) 90 - 95 % [facility] Total CO2, Art POC 25 22 - 32 mmol/L [facility] BE, art, POC -1.9 -2.0 - 2.0 mmol/L [facility] HCO3, Art POC 24 20 - 30 mmol/L [facility] Hct, POC 29.0(L) 38.9 - 50.3 % [facility] Total Hb, POC 9.5(L) 13.0 - 17.5 g/dL [facility] Blood 04/15/2024 2:27 PM ORTHOPEDIC PHYSICIAN 04/15/2024 2:27 PM ORTHOPEDIC PHYSICIAN us Chico Ruff MD LAB POCT ORDERABLES - DEVICE Final Result [facility] [address] [place] [address] * (ABNORMAL) POC Activated Clotting Time, High Range (04/15/2024 2:26 PM ORTHOPEDIC PHYSICIAN) ACT 480(H) 87 - 138 sec Blood 04/15/2024 2:26 PM ORTHOPEDIC PHYSICIAN 04/15/2024 2:26 PM ORTHOPEDIC PHYSICIAN us Chico Ruff MD LAB BLOOD ORDERABLES Final Re sult [facility] [address] Department [place] [address] * (ABNORMAL) POC Blood Gas and Chemistries, Arterial - (04/15/2024 2:00 PM ORTHOPEDIC PHYSICIAN) [facility] pH, Art POC 7.35 7.35 - 7.45 pCO2, Art POC 42 35 - 45 mmHg [facility] pO2, Art POC 250(H) 80 - 108 mmHg [facility] Na, POC 135 135 - 145 mmol/L [facility] K POC 5.7(H) 3.3 - 4.9 mmol/L [facility] Comment: Interpretive Data This method is not able to assess for hemolysis, which may falsely increase potassium concentrations. If further testing is needed to evaluate this result, consider in-laboratory plasma potassium. Current Interpretive Data was last revised on 2021. Cl, POC 108 97 - 110 mmol/L [facility] Ionized Ca, POC 4.65 4.50 - 5.10 mg/dL [facility] Glucose, POC 149 70 - 199 mg/dL [facility] Lactate, POC 1.9 0.0 - 2.0 mmol/L [facility] O2Hb, Art POC 98.1(H) 90.0 - 95.0 % [facility] Carboxhgb fract 0.3 0.0 - 2.9 % [facility] Methemoglobin 0.8 0.0 - 1.9 % [facility] HHb, POC 0.7 0.0 - 5.0 % [facility] SO2 (renny) arterial 99(H) 90 - 95 % [facility] Total CO2, Art POC 24 22 - 32 mmol/L [facility] BE, art, POC -2.3(L) -2.0 - 2.0 mmol/L [facility] HCO3, Art POC 23 20 - 30 mmol/L [facility] Hct, POC 29.0(L) 38.9 - 50.3 % [facility] Total Hb, POC 9.6(L) 13.0 - 17.5 g/dL [facility] Blood 04/15/2024 2:00 PM ORTHOPEDIC PHYSICIAN 04/15/2024 2:00 PM ORTHOPEDIC PHYSICIAN us Chico Ruff MD LAB POCT ORDERABLES - DEVICE Final Result Performing Organization Address [facility]/ZIP Co de Phone Number [facility] [address] [employer] [place] [address] * (ABNORMAL) POC Activated Clotting Time, High Range (04/15/2024 1:59 PM ORTHOPEDIC PHYSICIAN) Pathologist [facility] ACT 478(H) 87 - 138 sec Blood 04/15/2024 1:59 PM ORTHOPEDIC PHYSICIAN 04/15/2024 1:59 PM ORTHOPEDIC PHYSICIAN Chico Ruff MD LAB BLOOD ORDERABLES Final Re sult Performing Organization Address City/[facility]/ZIP Co de Phone Number [facility] [address] [place] [place] [address] * (ABNORMAL) POC Blood Gas and Chemistries, Venous - (04/15/2024 1:41 PM ORTHOPEDIC PHYSICIAN) pH, Boubacar POC 7.30(L) 7.32 - 7.45 pCO2, boubacar POC 51(H) 40 - 50 mmHg [facility] pO2, boubacar POC 48(H) 35 - 42 mmHg [facility] Na, POC 136 135 - 145 mmol/L [facility] K POC 5.4(H) 3.3 - 4.9 mmol/L [facility] Comment: Interpretive Data This method is not able to assess for hemolysis, which may falsely increase potassium concentrations. If further testing is needed to evaluate this result, consider in-laboratory plasma potassium. Current Interpretive Data was last revised on 2021. Cl, POC 108 97 - 110 mmol/L [facility] Ionized Ca, POC 4.69 4.50 - 5.10 mg/dL [facility] Glucose, POC 124 70 - 199 mg/dL [facility] Lactate, POC 1.7 0.0 - 2.0 mmol/L [facility] O2Hb, Boubacar POC 79.3(L) 90.0 - 95.0 % [facility] Carboxhgb fract 0.7 0.0 - 2.9 % [facility] Methemoglobin 0.7 0.0 - 1.9 % [facility] HHb, POC 19.3(H) 0.0 - 5.0 % [facility] O2 Sat, Boubacar POC (Renny) 80(H) 68 - 77 % [facility] Total CO2, boubacar POC 27 22 - 32 mmol/L [facility] Base excess, boubacar POC -1.6 mmol/L [facility] HCO3, Boubacar POC 23 20 - 30 mmol/L [facility] Hct, POC 29.0(L) 38.9 - 50.3 % [facility] Total Hb, POC 9.8(L) 13.0 - 17.5 g/dL [facility] Blood 04/15/2024 1:41 PM ORTHOPEDIC PHYSICIAN 04/15/2024 1:41 PM ORTHOPEDIC PHYSICIAN Chico Ruff MD LAB POCT ORDERABLES - DEVICE Final Result [facility] [address] Department [place] [address] * (ABNORMAL) POC Blood Gas and Chemistries, Arterial - (04/15/2024 1:33 PM ORTHOPEDIC PHYSICIAN) Pathologist [facility] pH, Art POC 7.36 7.35 - 7.45 pCO2, Art POC 47(H) 35 - 45 mmHg [facility] pO2, Art POC 393(H) 80 - 108 mmHg [facility] Na, POC 136 135 - 145 mmol/L [facility] K POC 5.6(H) 3.3 - 4.9 mmol/L [facility] Comment: Interpretive Data This method is not able to assess for hemolysis, which may falsely increase potassium concentrations. If further testing is needed to evaluate this result, consider in-laboratory plasma potassium. Current Interpretive Data was last revised on 2021. Cl, POC 109 97 - 110 mmol/L [facility] Ionized Ca, POC 4.64 4.50 - 5.10 mg/dL [facility] Glucose, POC 133 70 - 199 mg/dL [facility] Lactate, POC 1.8 0.0 - 2.0 mmol/L [facility] O2Hb, Art POC 98.9(H) 90.0 - 95.0 % [facility] Carboxhgb fract 0.4 0.0 - 2.9 % [facility] Methemoglobin 0.4 0.0 - 1.9 % [facility] HHb, POC 0.3 0.0 - 5.0 % [facility] SO2 (renny) arterial 100(H) 90 - 95 % [facility] Total CO2, Art POC 28 22 - 32 mmol/L [facility] BE, art, POC 0.8 -2.0 - 2.0 mmol/L [facility] HCO3, Art POC 26 20 - 30 mmol/L [facility] Hct, POC 30.0(L) 38.9 - 50.3 % [facility] Total Hb, POC 9.9(L) 13.0 - 17.5 g/dL [facility] Blood 04/15/2024 1:33 PM ORTHOPEDIC PHYSICIAN 04/15/2024 1:33 PM ORTHOPEDIC PHYSICIAN us Chico Ruff MD LAB POCT ORDERABLES - DEVICE Final Result Performing Organization Address [facility] Co de Phone Number [facility] [address] Department [place] [address] * (ABNORMAL) POC Activated Clotting Time, High Range (04/15/2024 1:32 PM ORTHOPEDIC PHYSICIAN) ACT 459(H) 87 - 138 sec Blood 04/15/2024 1:32 PM ORTHOPEDIC PHYSICIAN 04/15/2024 1:32 PM ORTHOPEDIC PHYSICIAN us Chico Ruff MD LAB BLOOD ORDERABLES Final Re sult [facility] [address] Department [place] [address] * (ABNORMAL) POC Blood Gas and Chemistries, Arterial - (04/15/2024 1:16 PM ORTHOPEDIC PHYSICIAN) pH, Art POC 7.42 7.35 - 7.45 pCO2, Art POC 39 35 - 45 mmHg [facility] pO2, Art POC 273(H) 80 - 108 mmHg [facility] Na, POC 135 135 - 145 mmol/L [facility] K POC 4.8 3.3 - 4.9 mmol/L [facility] Comment: Interpretive Data This method is not able to assess for hemolysis, which may falsely increase potassium concentrations. If further testing is needed to evaluate this result, consider in-laboratory plasma potassium. Current Interpretive Data was last revised on 2021. Cl, POC 105 97 - 110 mmol/L [facility] Ionized Ca, POC 4.95 4.50 - 5.10 mg/dL [facility] Glucose, POC 130 70 - 199 mg/dL [facility] Lactate, POC 1.6 0.0 - 2.0 mmol/L [facility] O2Hb, Art POC 98.0(H) 90.0 - 95.0 % [facility] Carboxhgb fract 0.4 0.0 - 2.9 % [facility] Methemoglobin 0.8 0.0 - 1.9 % [facility] HHb, POC 0.8 0.0 - 5.0 % [facility] SO2 (renny) arterial 99(H) 90 - 95 % [facility] Total CO2, Art POC 26 22 - 32 mmol/L [facility] BE, art, POC 0.8 -2.0 - 2.0 mmol/L [facility] HCO3, Art POC 26 20 - 30 mmol/L [facility] Hct, POC 38.0(L) 38.9 - 50.3 % [facility] Total Hb, POC 12.5(L) 13.0 - 17.5 g/dL [facility] Blood 04/15/2024 1:16 PM ORTHOPEDIC PHYSICIAN 04/15/2024 1:16 PM ORTHOPEDIC PHYSICIAN us Chico Ruff MD LAB POCT ORDERABLES - DEVICE Final Result Performing Organization Address City/[facility]/ZIP Co de Phone Number [facility] [address] [facility] [employer] [place] [address] * (ABNORMAL) POC Activated Clotting Time, High Range (04/15/2024 1:15 PM ORTHOPEDIC PHYSICIAN) ACT 553(H) 87 - 138 sec Blood 04/15/2024 1:15 PM ORTHOPEDIC PHYSICIAN 04/15/2024 1:15 PM ORTHOPEDIC PHYSICIAN us Chico Ruff MD LAB BLOOD ORDERABLES Final Re sult Performing Organization Address [facility] Co de Phone Number [facility] [address] [facility] [employer] [place] [address] * [place] AN PROCEDURE PLACEHOLDER (04/15/2024 11:57 AM ORTHOPEDIC PHYSICIAN) Anatomical Region Laterality Modality Other Narrative 04/15/2024 11:57 AM ORTHOPEDIC PHYSICIAN Leodan Beatty MD 04/15/2024 12:00 PM MARIUM Date/time: 04/15/2024 11:57 AM Staff: Supervising anesthesiologist: Leodan Beatty MD Performed by: Anesthesiologist: Leodan Beatty MD Preprocedure checklist: patient identified, procedure contraindications assessed, procedure consent, risks, benefits and alternatives discussed, monitors and equipment checked, timeout performed and MARIUM probe inserted into esophagus using lubricating jelly General procedure Information: Reason for procedure/indications: assessment of surgical repair Performed: personally Procedure performed at surgeon's request: yes Results discussed with surgeon: yes Images submitted to archive: yes Patient location: OR Intubated: yes Bite blocked placed: yes Probe Insertion: easy Complications: no Probe type: adult Modalities: 2D imaging, 3D imaging, continuous wave Doppler, pulsed wave Doppler and color Doppler Billing information: Physician requesting echo: Jaime Colin MD CPT code: MARIUM placement and diagnostic exam, non-congenital (94508) : I25.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 Echocardiographic and doppler measurements: Ventricles: Left ventricle: Cavity size: normal Hypertrophy: No Thrombus: No Global function: mildly decreased LVEF%: 40-50 Right ventricle: Cavity size: normal Hypertrophy: no Global function: mildly decreased RVEF%: 40-50 Regional function: 1- Basal anteroseptal: hypokinetic 2- Basal anterior: hypokinetic 3- Basal anterolateral: hypokinetic 4- Basal inferolateral: hypokinetic 5- Basal inferior: hypokinetic 6- Basal inferoseptal: hypokinetic 7- Mid anteroseptal: hypokinetic 8- Mid anterior: hypokinetic 9- Mid anterolateral: hypokinetic 10- Mid inferolateral: hypokinetic 11- Mid inferior: hypokinetic 12- Mid inferoseptal: hypokinetic 13- Apical anterior: hypokinetic 14- Apical lateral: hypokinetic 15- Apical inferior: hypokinetic 16- Apical septal: hypokinetic 17- [place]: hypokinetic Pre procedure segmental wall motion comments: Basal: [id number] moderate hypokinesis Mid: inferior-septal hypokinesis Valves: Aortic Valve: Annulus: normal Leaflet morphology: normal Leaflet motion: normal Stenosis: none Regurgitation: none Mitral valve: Annulus: normal Leaflet morphology anterior: normal Leaflet morphology posterior: normal Leaflet motion anterior: normal Leaflet motion posterior: normal Stenosis: none Regurgitation: mild Tricuspid valve: Annulus: normal Leaflet morphology: normal Leaflet motion: normal Stenosis: none Regurgitation: moderate Pulmonic valve: Annulus: normal Stenosis: none Regurgitation: absent Aorta: Ascending aorta: Size: normal Dissection: no Plaque thickness(mm): 0-3 Plaque mobile: no Aortic arch: Size: normal Dissection: no Plaque mobile: no Descending aorta: Size: normal Dissection: no Plaque thickness(mm): 0-3 Plaque mobile: no Atria: Right atrium: Size: normal Spontaneous echo contrast: No Thrombus: no Mass: No Left atrium: Size: normal (normal) Spontaneous echo contrast: No Thrombus: no Mass: No Left atrial appendage: normal Interatrial septum: normal Diastolic function and other findings: Diastolic function: abnormal Pericardium: normal Left pleural effusion: none Right pleural effusion: normal Pulmonary venous flow: normal Attestation Statement: By signing this report the attending anesthesiologist certifies that he or she has personally reviewed and interpreted the echocardiogram and has reviewed and or edited and agrees with the written comments contained within the report. Leodan Beatty MD ANESTHESIA ORDERABLES Final Re sult * [place] AN CENTRAL LINE QUADRUPLE LUMEN, [place] AN PROCEDURE PLACEHOLDER (04/15/2024 10:46 AM ORTHOPEDIC PHYSICIAN) Leodan Capps MD - 04/15/2024 10:46 AM ORTHOPEDIC PHYSICIAN Leodan Beatty MD 04/15/2024 10:47 AM Central Venous Line Patient location: OR Indication: central venous access and CVP monitoring Staff: Placed by: Anesthesiologist: Leodan Beatty MD Procedure prep: Patient position: Trendelenburg. PPE: provider hand hygiene, provider hat/mask, sterile gloves, sterile gown and full body drape. Prep solution: chlorhexadine/alcohol was applied to area. Ultrasound Evaluation: Ultrasound was prepped into field. Central line: Laterality: right Site: internal jugular Catheter type: quad lumen Catheter size: 7.5 Fr. Catheter length: 16 cm Technique: wire threaded easily, anatomy identified with surface landmarks, anatomy identified with ultrasound, vein located with finder needle, Seldinger technique and wire removed intact Venous verification: manometry, ultrasound confirmation and MARIUM confirmation Post insertion: all ports aspirated, all ports flushed easily, line sutured in place and occlusive dressing applied Number of attempts: 1 Assessment: Events: patient tolerated procedure well with no complications Leodan Beatty MD ANESTHESIA ORDERABLES Final Re sult * BW AN SHEATH INTRODUCER PERFORMABLE, PULMONARY ARTERY CATH, [place] AN PROCEDURE PLACEHOLDER (0:45 AM ORTHOPEDIC PHYSICIAN) Narrative Leodan Beatty MD - 04/15/2024 10:45 AM ORTHOPEDIC PHYSICIAN Leodan Beatty MD 04/15/2024 10:46 AM Central Venous Line Patient location: OR Indication: central venous access and CVP monitoring Staff: Placed by: Anesthesiologist: Leodan Beatty MD Procedure prep: Patient position: Trendelenburg. PPE: provider hand hygiene, provider hat/mask, sterile gloves, sterile gown and full body drape. Prep solution: chlorhexadine/alcohol was applied to area. Ultrasound Evaluation: Ultrasound was prepped into field. Central line: Laterality: right Site: internal jugular Catheter type: introducer sheath Catheter size: 9 Fr. Catheter length: 10 cm Technique: anatomy identified with surface landmarks, anatomy identified with ultrasound, vein located with finder needle, Seldinger technique, wire threaded easily and wire removed intact Venous verification: manometry, ultrasound confirmation and MARIUM confirmation Post insertion: all ports aspirated, all ports flushed easily, line sutured in place and occlusive dressing applied Number of attempts: 1 PA catheter placement: PA catheter type: non-oximetric PA catheter size: 7.5 Fr PA catheter laterality: right PA catheter site: internal jugular Placement guided by: pressure tracing changes PA catheter depth 45 cmNo Assessment: Events: patient tolerated procedure well with no complications Leodan Beatty MD ANESTHESIA ORDERABLES Final Re sult * [place] AN PROCEDURE PLACEHOLDER (04/15/2024 10:45 AM ORTHOPEDIC PHYSICIAN) Leodan Capps MD - 04/15/2024 10:45 AM ORTHOPEDIC PHYSICIAN Leodan Beatty MD 04/15/2024 10:45 AM Arterial Line Patient location: OR Indication: continuous blood pressure monitoring and blood sampling needed Staff: Supervising provider: Leodan Beatty MD Placed by: CLIP BOLTER AND WRAPPER: Gerber Zabala CRNA Procedure prep: Prep solution: chlorhexadine/alcohol Prep: provider hat/mask Arterial line: Catheter size: 20 gauge Catheter length: 1 and 3/4 inch Catheter type: wire-guided catheter Seldinger technique: yes Laterality: right Site: radial artery Line secured: tape and Tegaderm Results: good waveform and good blood return Number of attempts: 2 Assessment: Events: patient tolerated procedure well with no complications Leodan Beatty MD ANESTHESIA ORDERABLES Final Re sult * AZ AN ELECTIVE ENDOTRACHEAL AIRWAY, [place] AN PROCEDURE PLACEHOLDER (04/15/2024 10:42 AM ORTHOPEDIC PHYSICIAN) Leodan Capps MD - 04/15/2024 10:42 AM ORTHOPEDIC PHYSICIAN Leodan Beatty MD 04/15/2024 10:45 AM Airway Patient location: OR Urgency: elective Indications for airway management: anesthesia Difficult airway: no Staff: Placed by: Anesthesiologist: Leodan Beatty MD Emergent airway documentation: Risks and benefits discussed: yes Consent obtained: yes Consent given by: patient Airway prep: Preoxygenated: yes Patient position: sniffing Mask difficulty assessment: 1 - vent by mask Sedation level during airway: GA Final airway details: Final airway type: endotracheal airway Tube type: ETT ETT size: 8.0 mm Cuffed: yes Technique used for successful ETT placement: video laryngoscopy Insertion site: oral Blade type: Berenice Video blade type: Wharton Blade size: 3 Cormack-Lehane (direct): grade I - full view of glottis Cuff inflated with: air Placement verified by: auscultation and CO2 detection Airway secured with: silk tape Number of attempts: 1no us Leodan Beatty MD ANESTHESIA ORDERABLES Final Re sult * POC Activated Clotting Time, High Range (04/15/2024 10:12 AM ORTHOPEDIC PHYSICIAN) ACT 98 87 - 138 sec Blood 04/15/2024 10:1 2 AM ORTHOPEDIC PHYSICIAN 04/15/2024 10:12 AM ORTHOPEDIC PHYSICIAN Chico Ruff MD LAB BLOOD ORDERABLES Final Re sult Performing Organization Address City/[facility]/ZIP Co de Phone Number KRISTI [facility] [address] Department [place] [address] * MARIUM Add-On For OR (04/15/2024 8:04 AM ORTHOPEDIC PHYSICIAN) Pathologist [facility] BSA 2.31 m2 CONS SCIMAGE Narrative CONS SCIMAGE - 04/15/2024 8:04 AM ORTHOPEDIC PHYSICIAN Procedure Auto Finalized by Rule: BW CV MARIUM DURING CASE OR Please see the Anesthesiologist's Procedure Note for the results. us Leodan Beatty MD CV ECHO PROCEDURES Final Resul t CONS SCIMAGE * eGFR (04/15/2024 3:48 AM ORTHOPEDIC PHYSICIAN) eGFR 85 >=60 mL/min/1. 73 m2 Comment: Interpretive Data Reference Interval Normal >/= 90 mL/min/1.73m2 Mildly decreased* 60 - 89 mL/min/1.73m2 Mildly to moderately decreased 45 - 59 mL/min/1.73m2 Moderately to severely decreased 30 - 44 mL/min/1.73m2 Severely decreased 15 - 29 mL/min/1.73m2 Kidney Failure < 15 mL/min/1.73m2 *Relative to young adult level Estimated glomerular filtration rate is determined by the 2020 CKD-EPI equation recommended by the National Kidney Foundation (A Unifying Approach to GFR Estimation: Recommendations of the NKF-ASK Task Force on Reassessing the Inclusion of Race in Diagnosing Kidney Disease, JASN 202). The CKD-EPI equation should not be used for patients with unstable renal function and has not been validated in children and those over 70. Current interpretive data was last reviewed 2021. Blood 04/15/2024 3:48 AM ORTHOPEDIC PHYSICIAN 04/15/2024 4:08 AM ORTHOPEDIC PHYSICIAN John Solitario DO LAB BLOOD ORDERABLES nal Result [facility] [address] Department [place] [address] * Differential, auto (04/15/2024 3:48 AM ORTHOPEDIC PHYSICIAN) Neutrophil abs 4.0 1.5 - 6.5 K/cumm Imm gran abs 0.0 0.0 - 0.1 K/cumm [facility] Lymphocyte abs 1.7 0.8 - 3.3 K/cumm [facility] Monocyte abs 0.7 0.2 - 0.8 K/cumm [facility] Eosinophil abs 0.1 0.0 - 0.5 K/cumm [facility] Basophil abs 0.1 0.0 - 0.1 K/cumm [facility] Neutrophil pct 60.5 % [facility] Comment: Interpretive Data Percent cell count reference ranges are not reported, since discordance with absolute values may lead to misinterpretation of CBC data. Current Interpretive Data was last revised on 2017. Imm gran pct 0.3 % [facility] Comment: Interpretive Data Percent cell count reference ranges are not reported, since discordance with absolute values may lead to misinterpretation of CBC data. Current Interpretive Data was last revised on 2017. Lymphocyte pct 26.1 % [facility] Comment: Interpretive Data Percent cell count reference ranges are not reported, since discordance with absolute values may lead to misinterpretation of CBC data. Current Interpretive Data was last revised on 2017. Monocyte pct 10.2 % [facility] Comment: Interpretive Data Percent cell count reference ranges are not reported, since discordance with absolute values may lead to misinterpretation of CBC data. Current Interpretive Data was last revised on 2017. Eosinophil pct 2.1 % [facility] Comment: Interpretive Data Percent cell count reference ranges are not reported, since discordance with absolute values may lead to misinterpretation of CBC data. Current Interpretive Data was last revised on 2017. Basophil pct 0.8 % [facility] Comment: Interpretive Data Percent cell count reference ranges are not reported, since discordance with absolute values may lead to misinterpretation of CBC data. Current Interpretive Data was last revised on 2017. Blood 04/15/2024 3:48 AM ORTHOPEDIC PHYSICIAN 04/15/2024 4:07 AM ORTHOPEDIC PHYSICIAN us John Solitario DO LAB BLOOD ORDERABLES Fi nal Result [facility] [address] Department [place] [address] * (ABNORMAL) CBC with auto differential (04/15/2024 3:48 AM ORTHOPEDIC PHYSICIAN) WBC 6.6 3.8 - 9.9 K/cumm Hgb 12.6(L) 13.0 - 17.5 g/dL [facility] Hct 38.1(L) 38.9 - 50.3 % [facility] Plt 171 150 - 400 K/cumm [facility] MPV 10.7 9.1 - 12.3 fL [facility] RBC 4.22(L) 4.30 - 5.80 M/cumm [facility] MCV 90.3 81.3 - 96.4 fL [facility] MCH 29.9 27.1 - 33.3 pg [facility] MCHC 33.1 32.3 - 35.7 g/dL [facility] RDW CV 12.8 11.1 - 14.9 % [facility] RDW SD 41.8 35.7 - 48.1 fL [facility] NRBC abs 0.00 0.00 - 0.01 K/cumm [facility] Blood 04/15/2024 3:48 AM ORTHOPEDIC PHYSICIAN 04/15/2024 4:07 AM ORTHOPEDIC PHYSICIAN John Solitario DO LAB BLOOD ORDERABLES Fi nal Result Performing Organization Address [facility] Co de Phone Number [facility] [address] Department [place] [employer] [place] [address] * (ABNORMAL) aPTT (04/15/2024 3:48 AM ORTHOPEDIC PHYSICIAN) aPTT 87(H) 28 - 38 sec Comment: Interpretive Data Heparin therapeutic range: 66.0 - 100.0 seconds. Range based on correlation with therapeutic heparin activity range of 0.3 - 0.7 Units/mL. Current interpretive data was last revised on 2023. Blood 04/15/2024 3:48 AM ORTHOPEDIC PHYSICIAN 04/15/2024 4:08 AM ORTHOPEDIC PHYSICIAN Narrative [facility] - 04/15/2024 4:25 AM ORTHOPEDIC PHYSICIAN Draw for duration of Heparin infusion. Chico Ruff MD LAB BLOOD ORDERABLES Final Re sult Performing Organization Address [facility] Co de Phone Number [facility] [address] Department [place] [address] * Basic metabolic panel (04/15/2024 3:48 AM ORTHOPEDIC PHYSICIAN) Sodium 140 135 - 145 mmol/L Potassium, pl 3.9 3.3 - 4.9 mmol/L [facility] Chloride 103 97 - 110 mmol/L [facility] CO2 24 22 - 32 mmol/L [facility] Anion gap 13 2 - 15 mmol/L [facility] BUN 18 6 - 25 mg/dL [facility] Creatinine 1.02 0.80 - 1.30 mg/dL [facility] Glucose 104 70 - 199 mg/dL [facility] Comment: Interpretive Data Fasting glucose >/= 126 mg/dl is diagnostic for diabetes. Fasting is defined as no caloric intake for at least 8 hours. Fasting glucose between 100 mg/dl to 125 mg/dl is diagnostic of prediabetes. In a patient with classic symptoms of hyperglycemia or hyperglycemic crisis, a random glucose >/= 200 mg/dl is diagnostic for diabetes. In the absence of unequivocal hyperglycemia, results should be confirmed by repeat testing. The classification and Diagnosis of Diabetes Diabetes Care 2021; 46: S19-S40. Current interpretive data was last revised 2022. Calcium 9.4 8.5 - 10.3 mg/dL [facility] Blood 04/15/2024 3:48 AM ORTHOPEDIC PHYSICIAN 04/15/2024 4:08 AM ORTHOPEDIC PHYSICIAN John Solitario DO LAB BLOOD ORDERABLES Fi nal Result Performing Organization Address City/[facility]/ZIP Co de Phone Number [facility] [address] Department [place] [address] * ECG 12 lead (04/14/2024 3:54 PM ORTHOPEDIC PHYSICIAN) 04/14/2024 3:54 PM ORTHOPEDIC PHYSICIAN Narrative [facility] - 04/15/2024 5:11 PM ORTHOPEDIC PHYSICIAN Vent Rate: 68 bpm RR Interval: 879 msec [place] Interval: 169 msec QRS Duration: 113 msec QT Interval: 385 msec QTC Interval: 402 msec P-R-T [place]: 25 - 36 - 34 degrees IMPRESSION: SINUS RHYTHM POSSIBLE INFERIOR MYOCARDIAL INFARCTION , PROBABLY OLD BORDERLINE ECG Electronically Signed By: Manoj Grissom MD [facility] Jaime Colin MD ECG ORDERABLES Final Re sult Performing Organization Address City/[facility]/ZIP Co de Phone Number [facility] [employer] [facility] * XR Chest PA Lateral 2 View (04/14/2024 3:51 PM ORTHOPEDIC PHYSICIAN) Anatomical Region Laterality Modality Body, Chest N/A Computed Radiogr aphy 04/14/2024 4:44 PM ORTHOPEDIC PHYSICIAN Impressions 04/14/2024 4:44 PM ORTHOPEDIC PHYSICIAN No acute cardiopulmonary abnormality. Electronically signed by: Reilly Jeffers M.D. Narrative 04/14/2024 4:44 PM ORTHOPEDIC PHYSICIAN EXAMINATION: XR CHEST PA LATERAL 2 VIEWS HISTORY: Pre-operative Exam COMPARISON: Chest radiograph 07/12/2023 FINDINGS: No focal consolidation. Left basilar atelectasis. No pleural effusion or pneumothorax. Heart size and mediastinal contours are normal. Pulmonary vascularity is within normal limits. Right upper quadrant cholecystectomy clips. Procedure Note Reilly Jeffers II, MD - 04/14/2024 EXAMINATION: XR CHEST PA LATERAL 2 VIEWS HISTORY: Pre-operative Exam COMPARISON: Chest radiograph 07/12/2023 FINDINGS: No focal consolidation. Left basilar atelectasis. No pleural effusion or pneumothorax. Heart size and mediastinal contours are normal. Pulmonary vascularity is within normal limits. Right upper quadrant cholecystectomy clips. IMPRESSION: No acute cardiopulmonary abnormality. Electronically signed by: Reilly Jeffers M.D. Jaime Colin MD IMG XR PROCEDURES Final Result * Type and screen (04/14/2024 3:22 PM ORTHOPEDIC PHYSICIAN) [facility] ABO Rh O Positive Arvind, indirect Negative [facility] Blood 04/14/2024 3:22 PM ORTHOPEDIC PHYSICIAN 04/14/2024 3:35 PM ORTHOPEDIC PHYSICIAN Narrative [facility] - 04/14/2024 4:18 PM ORTHOPEDIC PHYSICIAN PRE-OP CABG FOR 04/15/24 Has the patient had Daratumumab or Isatuximab in the past 6 months?->Unknown Jaime Colin MD LAB BLOOD BANK TEST ORDE RABLES Final Result [facility] [address] [place] [address] * (ABNORMAL) Hemoglobin A1c (04/14/2024 3:22 PM ORTHOPEDIC PHYSICIAN) Hgb A1C 5.8(H) 4.0 - 5.6 % Estimated Average Glucose 120 mg/dL [facility] Comment: The ADA recommends reporting an estimated Average Glucose (eAG) with all Hemoglobin A1c results using the equation derived from a study of 507 normal and diabetic adults. Minority populations were underrepresented and children were not included. (Diabetes Care 31:7956-1450, 2008). The eAG is not equivalent to a fasting glucose. Blood 04/14/2024 3:22 PM ORTHOPEDIC PHYSICIAN 04/14/2024 3:31 PM ORTHOPEDIC PHYSICIAN us Jaime Colin MD LAB BLOOD ORDERABLES Fin al Result [facility] [address] Department [place] [address] * (ABNORMAL) Lipid panel (04/14/2024 3:22 PM ORTHOPEDIC PHYSICIAN) Pathologist [facility] Cholesterol 150 30 - 199 mg/dL Comment: Interpretive Data Ages < or = 19 years Acceptable: <170 mg/dL Borderline high: 170-199 mg/dL High: >or= 200 mg/dL Ages > or = 20 years Desirable: <200 mg/dL Borderline high: 200-239 mg/dL High: >or= 240 mg/dL Literature References: 1. Expert Panel on Integrated Guidelines for Cardiovascular Health and Risk Reduction in Children and Adolescents. Pediatrics 2011;128:S213 2. NCEP Expert Panel. Circulation 2004;110:227 Current Interpretive Data was last revised on 2017. Triglycerides 218(H) <=149 mg/dL [facility] Comment: Interpretive Data Ages < or = 9 years Acceptable: <75 mg/dL Borderline high: 75-99 mg/dL High: >or= 100 mg/dL Ages 10 to 20 years Acceptable: <90 mg/dL Borderline high: 90-129 mg/dL High: >or= 130 mg/dL Ages > or = 20 years Desirable: <150 mg/dL Borderline high: 150-199 mg/dL High: 200-499 mg/dL Very high: >or= 499 mg/dL Literature References: 1. Expert Panel on Integrated Guidelines for Cardiovascular Health and Risk Reduction in Children and Adolescents. Pediatrics 2011;128:S213 2. NCEP Expert Panel. Circulation 2004;110:227 Current Interpretive Data was last revised on 2017. HDL 39(L) >=40 mg/dL [facility] Comment: Interpretive Data Ages < or = 19 years Acceptable: >45 mg/dL Borderline low: 40-45 mg/dL Low: <40 mg/dL Ages > or = 20 years Desirable: >or= 60 mg/dL Low: <40 mg/dL Literature References: 1. Expert Panel on Integrated Guidelines for Cardiovascular Health and Risk Reduction in Children and Adolescents. Pediatrics 2011;128:S213 2. NCEP Expert Panel. Circulation 2004;110:227 Current Interpretive Data was last revised on 2017. LDL, calculated 75 <=129 mg/dL [facility] Comment: Interpretive Data Ages < or = 19 years Acceptable: <110 mg/dL Borderline high: 110-129 mg/dL High: >or= 130 mg/dL Ages > or = 20 years Optimal: <100 mg/dL Near optimal: 100-129 mg/dL Borderline high: 130-159 mg/dL High: >160 mg/dL Calculated using the Jaron LDL-C estimating equation. This equation was implemented on 2023. Prior to this date LDL-C was estimated using the Friedewald equation. Literature References: 1. Expert Panel on Integrated Guidelines for Cardiovascular Health and Risk Reduction in Children and Adolescents. Pediatrics 2011;128:S213 2. NCEP Expert Panel. Circulation 2004;110:227 3. Jaron Posey et al. EFREM Cardiol. 2019August 05;5(5):540-548. doi: 10.1001/[email or web address].2020.0013 Current Interpretive Data was last revised on 2023. Non-HDL Cholesterol 111 mg/dL [facility] Comment: Interpretive Data Ages < or = 19 years Acceptable: <120 mg/dL Borderline high: 120-144 mg/dL High: >145 mg/dL Ages > or = 20 years When triglycerides are >200 mg/dL, Non-HDL cholesterol is a secondary target of therapy with treatment goals that are 30 mg/dL greater than the LDL cholesterol target. Literature References: 1. Expert Panel on Integrated Guidelines for Cardiovascular Health and Risk Reduction in Children and Adolescents. Pediatrics 2011;128:S213 2. NCEP Expert Panel. Circulation 2004;110:227 Current Interpretive Data was last revised on 2017. Chol/HDL ratio 4 [facility] Blood 04/14/2024 3:22 PM ORTHOPEDIC PHYSICIAN 04/14/2024 3:31 PM ORTHOPEDIC PHYSICIAN Jaime Colin MD LAB BLOOD ORDERABLES Fin al Result Performing Organization Address [facility] de Phone Number [facility] [address] Department [place] [address] * Prepare RBC: 2 Units (04/14/2024 2:31 PM ORTHOPEDIC PHYSICIAN) Pathologist [facility] Product code [id number] [facility] Unit Number [id number] [id number] [facility] Product Blood Type OPOS [facility] Dispense Status RETURNED [facility] Product code [id number] Unit Number [id number] [id number] [facility] Product Blood Type OS [facility] Dispense Status RETURNED [facility] Blood 04/14/2024 2:31 PM ORTHOPEDIC PHYSICIAN Narrative [facility] - 04/16/2024 6:35 PM ORTHOPEDIC PHYSICIAN Specify Procedure:->CABG Are special requirements needed? (All products are leukoreduced and CMV- safe)- >No Date required:-[id number] LRRBC # of [id number] Reasons:-Hold for procedure (specify procedure)} Jaime Colin MD BLOOD BANK PRODUCT ORDER GINNA Final Result Performing Organization Address [facility] de Phone Number [facility] [address] Department [place] [address] * (ABNORMAL) aPTT (04/14/2024 10:38 AM ORTHOPEDIC PHYSICIAN) aPTT 81(H) 28 - 38 sec Comment: Interpretive Data Heparin therapeutic range: 66.0 - 100.0 seconds. Range based on correlation with therapeutic heparin activity range of 0.3 - 0.7 Units/mL. Current interpretive data was last revised on 2023. Blood 04/14/2024 10:3 8 AM ORTHOPEDIC PHYSICIAN 04/14/2024 10:47 AM ORTHOPEDIC PHYSICIAN Ed Desai MD LAB BLOOD ORDERABLES Fin al Result Performing Organization Address [facility]/ZIP Co de Phone Number KRISTI [facility] [address] Department [place] [address] * eGFR (04/14/2024 4:35 AM ORTHOPEDIC PHYSICIAN) eGFR >90 >=60 mL/min/1. 73 m2 Comment: Interpretive Data Reference Interval Normal >/= 90 mL/min/1.73m2 Mildly decreased* 60 - 89 mL/min/1.73m2 Mildly to moderately decreased 45 - 59 mL/min/1.73m2 Moderately to severely decreased 30 - 44 mL/min/1.73m2 Severely decreased 15 - 29 mL/min/1.73m2 Kidney Failure < 15 mL/min/1.73m2 *Relative to young adult level Estimated glomerular filtration rate is determined by the 2020 CKD-EPI equation recommended by the National Kidney Foundation (A Unifying Approach to GFR Estimation: Recommendations of the NKF-ASK Task Force on Reassessing the Inclusion of Race in Diagnosing Kidney Disease, JASN 2020). The CKD-EPI equation should not be used for patients with unstable renal function and has not been validated in children and those over 70. Current interpretive data was last reviewed 2021. Blood 04/14/2024 4:35 AM ORTHOPEDIC PHYSICIAN 04/14/2024 5:48 AM ORTHOPEDIC PHYSICIAN John Solitario DO LAB BLOOD ORDERABLES Fi nal Result Performing Organization Address City/[facility]/ZIP Co de Phone Number KRISTI [facility] [address] Department [place] [address] * Differential, auto (04/14/2024 4:35 AM ORTHOPEDIC PHYSICIAN) Neutrophil abs 4.2 1.5 - 6.5 K/cumm Imm gran abs 0.0 0.0 - 0.1 K/cumm [facility] Lymphocyte abs 1.5 0.8 - 3.3 K/cumm [facility] Monocyte abs 0.6 0.2 - 0.8 K/cumm [facility] Eosinophil abs 0.1 0.0 - 0.5 K/cumm [facility] Basophil abs 0.1 0.0 - 0.1 K/cumm [facility] Neutrophil pct 64.5 % [facility] Comment: Interpretive Data Percent cell count reference ranges are not reported, since discordance with absolute values may lead to misinterpretation of CBC data. Current Interpretive Data was last revised on 2017. Imm gran pct 0.3 % [facility] Comment: Interpretive Data Percent cell count reference ranges are not reported, since discordance with absolute values may lead to misinterpretation of CBC data. Current Interpretive Data was last revised on 2017. Lymphocyte pct 22.9 % [facility] Comment: Interpretive Data Percent cell count reference ranges are not reported, since discordance with absolute values may lead to misinterpretation of CBC data. Current Interpretive Data was last revised on 2017. Monocyte pct 9.5 % [facility] Comment: Interpretive Data Percent cell count reference ranges are not reported, since discordance with absolute values may lead to misinterpretation of CBC data. Current Interpretive Data was last revised on 2017. Eosinophil pct 2.0 % [facility] Comment: Interpretive Data Percent cell count reference ranges are not reported, since discordance with absolute values may lead to misinterpretation of CBC data. Current Interpretive Data was last revised on 2017. Basophil pct 0.8 % [facility] Comment: Interpretive Data Percent cell count reference ranges are not reported, since discordance with absolute values may lead to misinterpretation of CBC data. Current Interpretive Data was last revised on 2017. Blood 04/14/2024 4:35 AM ORTHOPEDIC PHYSICIAN 04/14/2024 5:48 AM ORTHOPEDIC PHYSICIAN us John Solitario DO LAB BLOOD ORDERABLES Fi nal Result [facility] [address] [place] [address] * CBC with auto differential (04/14/2024 4:35 AM ORTHOPEDIC PHYSICIAN) [facility] WBC 6.5 3.8 - 9.9 K/cumm Hgb 13.0 13.0 - 17.5 g/dL [facility] Hct 39.7 38.9 - 50.3 % [facility] Plt 177 150 - 400 K/cumm [facility] MPV 11.0 9.1 - 12.3 fL [facility] RBC 4.37 4.30 - 5.80 M/cumm [facility] MCV 90.8 81.3 - 96.4 fL [facility] MCH 29.7 27.1 - 33.3 pg [facility] MCHC 32.7 32.3 - 35.7 g/dL [facility] RDW CV 12.6 11.1 - 14.9 % [facility] RDW SD 41.7 35.7 - 48.1 fL [facility] NRBC abs 0.00 0.00 - 0.01 K/cumm [facility] Blood 04/14/2024 4:35 AM ORTHOPEDIC PHYSICIAN 04/14/2024 5:48 AM ORTHOPEDIC PHYSICIAN John Solitario DO LAB BLOOD ORDERABLES Fi nal Result [facility] [address] [facility] [employer] [place] [address] * (ABNORMAL) aPTT (04/14/2024 4:35 AM ORTHOPEDIC PHYSICIAN) [facility] aPTT 94(H) 28 - 38 sec Comment: Interpretive Data Heparin therapeutic range: 66.0 - 100.0 seconds. Range based on correlation with therapeutic heparin activity range of 0.3 - 0.7 Units/mL. Current interpretive data was last revised on 2023. Blood 04/14/2024 4:35 AM ORTHOPEDIC PHYSICIAN 04/14/2024 5:47 AM ORTHOPEDIC PHYSICIAN Ed Desai MD LAB BLOOD ORDERABLES Fin al Result Performing Organization Address City/[facility]/ZIP Co de Phone Number [facility] [address] Department [place] [address] * Basic metabolic panel (04/14/2024 4:35 AM ORTHOPEDIC PHYSICIAN) Sodium 140 135 - 145 mmol/L Potassium, pl 3.7 3.3 - 4.9 mmol/L [facility] Chloride 102 97 - 110 mmol/L [facility] CO2 25 22 - 32 mmol/L [facility] Anion gap 13 2 - 15 mmol/L [facility] BUN 17 6 - 25 mg/dL [facility] Creatinine 0.92 0.80 - 1.30 mg/dL [facility] Glucose 100 70 - 199 mg/dL [facility] Comment: Interpretive Data Fasting glucose >/= 126 mg/dl is diagnostic for diabetes. Fasting is defined as no caloric intake for at least 8 hours. Fasting glucose between 100 mg/dl to 125 mg/dl is diagnostic of prediabetes. In a patient with classic symptoms of hyperglycemia or hyperglycemic crisis, a random glucose >/= 200 mg/dl is diagnostic for diabetes. In the absence of unequivocal hyperglycemia, results should be confirmed by repeat testing. The classification and Diagnosis of Diabetes Diabetes Care 202; 46: S19-S40. Current interpretive data was last revised 2022. Calcium 9.5 8.5 - 10.3 mg/dL [facility] Blood 04/14/2024 4:35 AM ORTHOPEDIC PHYSICIAN 04/14/2024 5:48 AM ORTHOPEDIC PHYSICIAN John Solitario DO LAB BLOOD ORDERABLES Fi nal Result Performing Organization Address [facility]/ZIP Co de Phone Number [facility] [address] Department [place] [address] * Check Sample (04/14/2024 4:31 AM ORTHOPEDIC PHYSICIAN) ABO Rh O Positive MBC HCLL OTHER 04/14/2024 4:31 AM ORTHOPEDIC PHYSICIAN 04/14/2024 2:54 PM ORTHOPEDIC PHYSICIAN Ch[place] Ruff MD LAB BLOOD ORDERABLES Final Re sult Performing Organization Address [facility] Co de Phone Number [facility] [address] [employer] [place] [employer] [place] [address] MBC * (ABNORMAL) aPTT (04/13/2024 9:58 PM ORTHOPEDIC PHYSICIAN) aPTT 51(H) 28 - 38 sec Comment: Interpretive Data Heparin therapeutic range: 66.0 - 100.0 seconds. Range based on correlation with therapeutic heparin activity range of 0.3 - 0.7 Units/mL. Current interpretive data was last revised on 2023. Blood 04/13/2024 9:58 PM ORTHOPEDIC PHYSICIAN 04/13/2024 10:07 PM ORTHOPEDIC PHYSICIAN Ed Desai MD LAB BLOOD ORDERABLES Fin al Result Performing Organization Address [facility] Co de Phone Number [facility] [address] Department [place] [address] * eGFR (04/13/2024 2:56 PM ORTHOPEDIC PHYSICIAN) eGFR 88 >=60 mL/min/1. 73 m2 Comment: Interpretive Data Reference Interval Normal >/= 90 mL/min/1.73m2 Mildly decreased* 60 - 89 mL/min/1.73m2 Mildly to moderately decreased 45 - 59 mL/min/1.73m2 Moderately to severely decreased 30 - 44 mL/min/1.73m2 Severely decreased 15 - 29 mL/min/1.73m2 Kidney Failure < 15 mL/min/1.73m2 *Relative to young adult level Estimated glomerular filtration rate is determined by the 2020 CKD-EPI equation recommended by the National Kidney [employer] (A Unifying Approach to GFR Estimation: Recommendations of the NKF-ASK Task Force on Reassessing the Inclusion of Race in Diagnosing Kidney Disease, JASN 2020). The CKD-EPI equation should not be used for patients with unstable renal function and has not been validated in children and those over 70. Current interpretive data was last reviewed 2021. Blood 04/13/2024 2:56 PM ORTHOPEDIC PHYSICIAN 04/13/2024 2:56 PM ORTHOPEDIC PHYSICIAN Azar Lock NP LAB BLOOD ORDERABLES Final Result Performing Organization Address [facility] Co de Phone Number [facility] [address] [facility] [employer] [place] [address] * aPTT (04/13/2024 2:56 PM ORTHOPEDIC PHYSICIAN) aPTT 36 28 - 38 sec Comment: Interpretive Data Heparin therapeutic range: 66.0 - 100.0 seconds. Range based on correlation with therapeutic heparin activity range of 0.3 - 0.7 Units/mL. Current interpretive data was last revised on 2023. Blood 04/13/2024 2:56 PM ORTHOPEDIC PHYSICIAN 04/13/2024 2:56 PM ORTHOPEDIC PHYSICIAN Ed Desai MD LAB BLOOD ORDERABLES Fin al Result Performing Organization Address [facility] Co de Phone Number [facility] [address] [facility] [place] [address] * Protime-INR (04/13/2024 2:56 PM ORTHOPEDIC PHYSICIAN) PT 11.0 9.7 - 13.0 sec INR 1.02 0.90 - 1.20 [facility] Comment: Interpretive data Oral anticoagulant therapeutic ranges: Venous thromboembolism prophylaxis or treatment: 2.0-3.0 CARDIOLOGY Standard range: 2.0-3.0 High-intensity range: 2.5-3.5 Refer to indication-specific guidelines for appropriate target ranges for prosthetic heart valve replacement. Current interpretive data was last revised on 2019. Blood 04/13/2024 2:56 PM ORTHOPEDIC PHYSICIAN 04/13/2024 2:56 PM ORTHOPEDIC PHYSICIAN Narrative [facility] - 04/13/2024 3:14 PM ORTHOPEDIC PHYSICIAN Baseline prior to heparin initiation Azar Lock ANALYSIS REPORTING DEVELOPER LAB BLOOD ORDERABLES Final Result Performing Organization Address [facility] de Phone Number [facility] [address] [facility] [employer] [place] [address] * CBC without differential (04/13/2024 2:56 PM ORTHOPEDIC PHYSICIAN) [facility] WBC 5.8 3.8 - 9.9 K/cumm Hgb 13.5 13.0 - 17.5 g/dL [facility] Hct 40.3 38.9 - 50.3 % [facility] Plt 193 150 - 400 K/cumm [facility] MPV 10.1 9.1 - 12.3 fL [facility] RBC 4.46 4.30 - 5.80 M/cumm [facility] MCV 90.4 81.3 - 96.4 fL [facility] MCH 30.3 27.1 - 33.3 pg [facility] MCHC 33.5 32.3 - 35.7 g/dL [facility] RDW CV 12.8 11.1 - 14.9 % [facility] RDW SD 42.1 35.7 - 48.1 fL [facility] NRBC abs 0.00 0.00 - 0.01 K/cumm [facility] Blood 04/13/2024 2:56 PM ORTHOPEDIC PHYSICIAN 04/13/2024 2:56 PM ORTHOPEDIC PHYSICIAN Narrative [facility] - 04/13/2024 3:02 PM ORTHOPEDIC PHYSICIAN Baseline prior to heparin initiation Azar Lock ANALYSIS REPORTING DEVELOPER LAB BLOOD ORDERABLES Final Result Performing Organization Address [facility]/ZIP Co de Phone Number [facility] [address] [employer] [place], [place] [id number] * Phosphorus (04/13/2024 2:56 PM ORTHOPEDIC PHYSICIAN) Pathologist [facility] Phosphorus, pl 4.3 2.3 - 4.5 mg/dL Blood 04/13/2024 2:56 PM ORTHOPEDIC PHYSICIAN 04/13/2024 2:56 PM ORTHOPEDIC PHYSICIAN Azar Cruz [facility] ANALYSIS REPORTING DEVELOPER LAB BLOOD ORDERABLES Final Result Performing Organization Address City/[facility]/ZIP Co de Phone Number [facility] [address] [facility] [employer] [place] [address] * Magnesium (04/13/2024 2:56 PM ORTHOPEDIC PHYSICIAN) [facility] Magnesium 1.9 1.4 - 2.5 mg/dL Blood 04/13/2024 2:56 PM ORTHOPEDIC PHYSICIAN 04/13/2024 2:56 PM ORTHOPEDIC PHYSICIAN [facility] BLOOD ORDERABLES Final Result Performing Organization Address [facility] de Phone Number [facility] [address] [employer] [place] [address] * (ABNORMAL) Comprehensive metabolic panel (04/13/2024 2:56 PM ORTHOPEDIC PHYSICIAN) [facility] Sodium 139 135 - 145 mmol/L Potassium, pl 3.8 3.3 - 4.9 mmol/L [facility] Chloride 103 97 - 110 mmol/L [facility] CO2 24 22 - 32 mmol/L [facility] Anion gap 12 2 - 15 mmol/L [facility] BUN 13 6 - 25 mg/dL [facility] Creatinine 0.99 0.80 - 1.30 mg/dL [facility] Glucose 130 70 - 199 mg/dL [facility] Comment: Interpretive Data Fasting glucose >/= 126 mg/dl is diagnostic for diabetes. Fasting is defined as no caloric intake for at least 8 hours. Fasting glucose between 100 mg/dl to 125 mg/dl is diagnostic of prediabetes. In a patient with classic symptoms of hyperglycemia or hyperglycemic crisis, a random glucose >/= 200 mg/dl is diagnostic for diabetes. In the absence of unequivocal hyperglycemia, results should be confirmed by repeat testing. The classification and Diagnosis of Diabetes Diabetes Care 2021; 46: S19-S40. Current interpretive data was last revised 2022. Calcium 9.8 8.5 - 10.3 mg/dL [facility] Bilirubin, total 0.4 0.1 - 1.2 mg/dL [facility] Protein, pl 7.6 6.5 - 8.5 g/dL [facility] Albumin 4.2 3.5 - 5.0 g/dL [facility] Alk phos 35(L) 40 - 130 Units/L [facility] ALT 14 7 - 55 Units/L [facility] AST 11 10 - 50 Units/L [facility] Blood 04/13/2024 2:56 PM ORTHOPEDIC PHYSICIAN 04/13/2024 2:56 PM ORTHOPEDIC PHYSICIAN Azar Lock NP LAB BLOOD ORDERABLES Final Result Performing Organization Address City/[facility]/ZIP Co de Phone Number [facility] [address] Department [place] [address] * CT Body Outside Reference (04/13/2024 1:19 PM ORTHOPEDIC PHYSICIAN) Narrative [email or web address]_[facility] - 04/13/2024 1:19 PM ORTHOPEDIC PHYSICIAN This order has been auto-finalized and does not contain a result. Azar Lock NP IMG CT PROCEDURES Final Re sult Performing Organization Address City/[facility]/ZIP Co de Phone Number [email or web address] * Cardiology Document Scan (04/12/2024 10:01 AM ORTHOPEDIC PHYSICIAN) Anatomical Region Laterality Modality Other Anuel Kendall MD CV CARDIAC SERVICES PROCEDURES F inal Result * PSA screen (10/09/2017 7:39 AM CDT) PSA <0.1 0.0 - 4.0 ng/mL [facility] - 01 Comment: [place] ECLIA methodology. According to the [employer], Serum PSA should decrease and remain at undetectable levels after radical prostatectomy. The AUA defines biochemical recurrence as an initial PSA value 0.2 ng/mL or greater followed by a subsequent confirmatory PSA value 0.2 ng/mL or greater. Values obtained with different assay methods or kits cannot be used interchangeably. Results cannot be interpreted as absolute evidence of the presence or absence of malignant disease. 10/09/2017 7:39 AM CDT 10/09/2017 Narrative [facility] - 10/10/2017 8:32 AM CDT Performed at: - [facility] [address] [id number] Tennis Racket Repairer: Santiago Juárez PhD, Phone: [phone] us Fredo Joy MD LAB BLOOD ORDERABLES Gail l Result [facility] - 01 from Last 3 Months or Most Recently Relevant to Health Maintenance Insurance [employer]ICE [employer] COMPENSATION GENERIC Advance Directives For more information, please contact: [phone] * Full Code (Latest Code Status on File) Date Activated Date Inactivated Comments 04/24/2024 8:06 PM 04/29/2024 8:30 PM * Full Code Date Activated Date Inactivated Comments 04/13/2024 10:00 AM 04/21/2024 2:55 PM * Full Code Date Activated Date Inactivated Comments 07/02/2023 4:19 AM 07/14/2023 6:29 PM * Full Code Date Activated Date Inactivated Comments 09/08/2017 12:32 PM 09/09/2017 9:12 PM Care Teams R Programmer Relationship Specialty Start Date End Date Dana Haynes NP [address] [place] [address] PCP - General Family Medicine 07/03/23 Young Guaman MD [address] [place] [address] 09/08/17 Jahaira Avendano MD [address] [facility] [address] [place] [address] Consulting Physician Pain Management 01/02/21
--- OUTSIDE RECORDS SUMMARY | 2024-06-24 13:54 | XMS_ITS | Referral Summary ---
Author Organization [facility] Address [address] [place] [address] Care Team Providers Care Site Project Manager Name Role Phone Young Guaman MD Unavailable [phone] Jahaira Avendano MD Unavailable Dana Haynes NP Primary Care Provider [phone] Encounters Date Type Department Care Team Description 06/15/2024 Telephone [facility] Cardiology [address] [place] [address] [address] [place] [phone] Anuel Kendall MD 06/03/2024 9:57 AM [employer]ER[employer] QUALITY TECHNICIAN - 06/03/2024 11:59 PM [employer] QUALITY TECHNICIAN Hospital Encounter [facility] [address] [place] [address] Discharge Disposition: Discharge to home or self care 06/03/2024 9:00 AM [employer] QUALITY TECHNICIAN Home Care Visit [facility] [address] [place] [address] Kyung Flynn RN SN NON OASIS DISCHARGE 06/01/2024 11:15 AM [employer] QUALITY TECHNICIAN Office Visit [facility] Cardiology [address] [place] [address] [place] [phone] Anuel Kendall MD Hx of CABG (Primary Dx); Hypercholesterolemia ; CAD, multiple vessel 05/31/2024 Telephone [facility] Cardiology [address] [place] [address] [address] [place] [address] Anuel Kendall MD Cardiac Rehab 05/27/2024 9:00 AM [employer]ASS QUALITY TECHNICIAN Home Care Visit [address] [place] [address] Kyung Flynn RN SN HOME VISIT 05/19/2024 2:00 PM [employer] QUALITY TECHNICIAN Home Care Visit [address] [place] [address] Kyung Flynn RN SN HOME VISIT 05/18/2024 Telephone Heart [address] [place] [address] Bebo Vallecillo EP-C CRN Follow Up 05/18/2024 10:45 AM [employer]ER[employer]ASS QUALITY TECHNICIAN Office Visit [facility] [address] [place] [address] [address], [place] [address] Jaime Colin MD Aftercare following surgery of the circulatory system (Primary Dx) 05/14/2024 Orders Only [facility] [address] [place] [address] [place] [address] Melissa Erickson NP Acute post-operative pain (Primary Dx) 05/14/2024 Telephone [facility] [address] [place] [address] [address], [place] [address] Jaime Colin MD Med Refill 05/13/2024 3:00 PM [employer]ER[employer]ASS QUALITY TECHNICIAN Home Care Visit [address] [place] [address] Kyung Flynn RN SN HOME VISIT 05/11/2024 Telephone [facility] [address] [place] [phone] Nahed Crabtree 05/11/2024 8:45 AM [employer] QUALITY TECHNICIAN Office Visit [facility] [address] [place] [address] [address], [place] [address] Jaime Colin MD Aftercare following surgery of the circulatory system (Primary Dx) 05/07/2024 Telephone [facility] [address] [facility] [address] [place] [address] Jaime Colin MD cough 05/04/2024 2:00 PM [employer] QUALITY TECHNICIAN Home Care Visit [address] [address] [address] [place] [address] Kyung Flynn RN SN HOME VISIT 05/03/2024 Telephone [facility] Surgery [address] [place] [address] [address], [place] [address] Davy Rios RN Wound question 05/01/2024 8:40 AM [employer] QUALITY TECHNICIAN - 05/01/2024 11:59 PM [employer] QUALITY TECHNICIAN Hospital Encounter [facility] [address] [place] [address] Discharge Disposition: Discharge to home or self care 05/01/2024 Home Care Visit [place] [address] [address] [place] [address] Leann Khoury RN SN TRIAGE ENCOUNTER 05/01/2024 8:00 AM [employer] QUALITY TECHNICIAN Home Care Visit [place] [address] [address] [place] [address] Jessica Mixon RN SN NON OASIS RESUMPTION OF CARE 04/30/2024 Telephone [facility] [address] [place] [address] [address], [place] [address] Davy Rios RN Wound photo 04/29/2024 Orders Only [facility] [address] [place] [address] Be Brambila, [facility] 04/24/2024 2:19 PM [employer] QUALITY TECHNICIAN - 04/29/2024 4:25 PM [employer] QUALITY TECHNICIAN Hospital Encounter [facility] [address] [place] [address] Rebekah Ivey MD Mauney, Michael Clark, MD Draining postoperative wound, initial encounter (Primary Dx); CAD, multiple vessel; Mediastinitis Discharge Disposition: Discharge to home, home health skilled care 04/26/2024 Home Care Visit [address] [place] [address] Risa Mcdaniel RN SN TRIAGE ENCOUNTER 04/26/2024 7:49 AM [employer] QUALITY TECHNICIAN Anesthesia Event [facility] Operating Room [facility] [place] [phone] Tommie Masters MD 04/26/2024 9:00 AM [employer] QUALITY TECHNICIAN - 04/26/2024 11:00 AM [facility] Surgery [facility] Operating Room [address] [place] [phone] Jaime Colin MD DELAYED DERMAL CLOSURE, WOUND VAC PLACEMENT 04/24/2024 Home Care Visit [address] [place] [address] Kyung Flynn RN SN NON OASIS TRANSFER 04/24/2024 5:55 PM [employer] QUALITY TECHNICIAN Anesthesia Event [facility] Operating Room [facility] [place] [phone] Tommie Masters MD 04/24/2024 5:15 PM [employer] QUALITY TECHNICIAN - 04/24/2024 7:10 PM [facility] Surgery [facility] Operating Room [address] [place] [phone] Jaime Colin MD EXPLORATION MEDIASTINUM/WASHOUT, WOUND VAC PLACEMENT 04/24/2024 Documentation [facility] [address] [place] [address] [place] [phone] Melissa Erickson NP 04/23/2024 Telephone [facility] [address] [place] [phone] Davy Rios manager sustainability status 04/23/2024 Orders Only [facility] [address] [place] [phone] Jaime Colin MD 2024 Plan of Care Documentation [address] [place] [address] 2024 Telephone [facility] [address] [facility] [address] [place] [address] Davy Rios, manager sustainability assessment 2024 2:30 PM [employer] QUALITY TECHNICIAN Home Care Visit [address] [place] [address] Kyung Flynn, HUMZA SN OASIS START OF CARE 04/21/2024 Telephone [facility] [address] [facility] [address] [place] [address] Jaime Colin MD Post-op Problem 04/13/2024 9:41 AM [employer] QUALITY TECHNICIAN - 04/21/2024 10:54 AM [employer] QUALITY TECHNICIAN Hospital Encounter [address] [address] John Solitario, DO Sargent, MD Giselle Crawford Kevin Patrick, MD Phatak, Rahul S., MD Mauney, Jaime Christianson MD CAD, multiple vessel (Primary Dx); S/P CABG x 4 Discharge Disposition: Discharge to home, home health skilled care 04/15/2024 8:05 AM [employer] QUALITY TECHNICIAN Ancillary Procedure [facility] Operating Room [address] [place] [phone] 04/15/2024 9:59 AM [employer] QUALITY TECHNICIAN Anesthesia Event [facility] Operating Room [address] [place] [phone] Leodan Beatty MD Curdt, Nicholas Christopher, YU 04/15/2024 12:30 PM [employer]ER[employer] QUALITY TECHNICIAN - 04/15/2024 6:50 PM [employer] QUALITY TECHNICIAN Surgery [facility] Operating Room [address] [place] [phone] Jaime Colin MD CORONARY ARTERY BYPASS GRAFTS 04/14/2024 Orders Only [facility] Cardiology [address] [place] [phone] Anuel Kendall MD 04/12/[address] [address] Alivia Colby RN 04/12/2024 Orders Only [address] [address] John Solitario DO from Last 3 Months Allergies Active Allergy Reactions Criticality Noted Date Comments Oxycodone Rash Medium Oxycodone Ilo-Xiqviqsth-Tue Rash Medium 08/23/2017 Penicillins Unknown 08/23/2017 Childhood reaction Has tolerated PCN as an adult Tetracyclines Diarrhea,Vomiting Low 08/23/2017 Medications nortriptyline (PAMELOR) 50 mg capsuleIndicat ions:abdominal discomfort Take 1 capsule (50 mg total) by mouth nightly Active montelukast (SINGULAIR) 10 mg tabletIndicati ons:Allergic Rhinitis Take 1 tablet (10 mg total) by mouth early childhood coordinator before breakfast Active gabapentin (NEURONTIN) 300 mg [...] with meals 90 tablet 2 5 Active [id number]-[id number]-[id number]-[id number] in [id number] mcg tabletIndicati ons:supplement Take 1 tablet by [...] disorder Take 10 mg by mouth daily. RX#[id number] by Dr Pipe Vivar Indications: major depressive disorder Active aspirin 325 mg enteric coated tablet Take 1 tablet (325 mg total) by mouth daily 5 06/01/19 Discontinu ed(Patient Reported) ferrous sulfate 325 mg (65 mg of elemental iron) tablet Take 1 tablet (65 mg of elemental iron total) by mouth 3 (three) times a day with meals 5 06/01/19 Discontinu ed(Patient Reported) Active Problems Problem Noted Date Diagnosed Date Draining postoperative wound 04/29/2024 Mediastinitis 04/24/2024 CAD, multiple vessel 04/13/2024 Gastroesophageal reflux disease without esophagi tis 04/13/2024 Primary hypertension 04/13/2024 Hypercholesterolemia 04/13/2024 Moderate protein-calorie malnutrition 07/06/2023 Abscess of upper lobe of left lung with pneumoni a 07/04/2023 Empyema 07/03/2023 Multifocal pneumonia 07/02/2023 Prostate cancer 09/09/2017 Tobacco use disorder 09/08/2017 Social History Tobacco Use Types Packs/Day Years [...] materials from doctor or pharmacy Never 2024 [facility] Utilities Answer Date Recorded In the past 12 months has e ENT Surgical, gas, oil, or water Phagenesis threatened to shut off services in your [...] often do you attend chur ch or catholic services? Never 04/28/2024 Do you belong to any clubs o r organizations such as judaism groups, unions, fraternal or athletic groups, or [...] place to sleep or slept in a senior living (including now)? No 07/03/2023 PHQ-9 Answer Date [...] any time in the past 12 m [facility], were you homeless or living in a senior living (including now)? No 04/28/2024 Personal Safety Answer Date Recorded Have you ever been in or are you currently in a harmful physical or emotional relationship or is someone making you feel afraid or unsafe? Denies 04/25/2024 Sex and Gender Information Value Date Recorded Sex Assigned at Not on file Legal Sex Male 2:15 AM [employer]ER[employer] QUALITY TECHNICIAN Gender Identity Male 05/24/2020 10:47 AM [employer] QUALITY TECHNICIAN Sexual Orientation Straight 05/24/2020 10 :47 AM [employer] QUALITY TECHNICIAN Last Filed Vital Signs Vital Sign Reading Time Taken Comments Blood Pressure 152/72 06/03/2024 9:48 AM [employer]ASS QUALITY TECHNICIAN Pulse 73 06/03/2024 9:48 AM [employer]ASS QUALITY TECHNICIAN Temperature 36.3 C (97.4 F) 06/03/2024 9:48 AM [employer]ASS QUALITY TECHNICIAN Respiratory Rate 18 06/03/2024 9:48 AM F[employer]ASS QUALITY TECHNICIAN Oxygen Saturation 98% 06/03/2024 9:48 AM [employer] QUALITY TECHNICIAN Inhaled Oxygen Concentration - - Weight 103 kg (227 lb) 06/03/2024 9:48 AM [employer]ER[employer]ASS QUALITY TECHNICIAN Height 175.3 cm (5' 9 ) 06/01/2024 12:15 PM F[employer]ER[employer]ASS QUALITY TECHNICIAN Body Mass Index 33.52 06/01/2024 12:15 PM F[employer]ER[employer]ASS QUALITY TECHNICIAN Plan of Treatment Not on file Medical Devices Implanted Type Area Stonecutter Device Identifier Shelf Expiration Date Model / Serial / Lot Other - See Comments Other - see comments Left: Arm Description:Metal teresa Procedures Procedure Name Priority Date/Time Associated Diagnosis Comments HEMOGLOBIN A1C Routine 06/03/2024 9:57 AM F[employer]ERGLASS QUALITY TECHNICIAN IRON PROFILE W/ IBC Routine 06/03/2024 9 :57 AM [employer]ASS QUALITY TECHNICIAN FERRITIN Routine 06/03/2024 9:57 AM [employer]ASS QUALITY TECHNICIAN POCT LIPID PANEL Routine 06/01/2024 12:08 AM F[employer]ASS QUALITY TECHNICIAN Hx of CABG Hypercholesterolemi a CAD, multiple vessel EGFR STAT 05/01/2024 8:40 AM [employer]ASS QUALITY TECHNICIAN DIFFERENTIAL AUTO STAT 05/01/2024 8:40 AM [employer]ASS QUALITY TECHNICIAN VANCOMYCIN LEVEL TROUGH STAT 05/01/2024 8:40 AM [employer]ASS QUALITY TECHNICIAN CBC WITH AUTO DIFFERENTIAL STAT 05/01/2024 8:40 AM [employer]ASS QUALITY TECHNICIAN COMPREHENSIVE METABOLIC PANEL STAT 05/01/2024 8:40 AM F[employer]ASS QUALITY TECHNICIAN XR CHEST 1 VIEW ED Urgent/IP Urgent 04/29/2024 2:57 PM F[employer]ASS QUALITY TECHNICIAN XR CHEST 1 VIEW ED Urgent/IP Urgent 04/29/2024 2:04 PM F[employer]ER[employer]ASS QUALITY TECHNICIAN SC INSJ NON-TUNNELED CENTRAL VENOUS CATH AGE 5 YR/> Routine 04/29/2024 11:39 AM F[employer]GLASS QUALITY TECHNICIAN Draining postoperative wound, initial encounter HEMOGLOBIN AND HEMATOCRIT STAT 04/29/2024 7:48 AM F[employer]ERGLASS QUALITY TECHNICIAN XR CHEST 1 VIEW IP Routine 04/29/2024 5:42 AM F[employer]ASS QUALITY TECHNICIAN EGFR Routine 04/29/2024 12:38 AM F[employer]ASS QUALITY TECHNICIAN MAGNESIUM Routine 04/29/2024 12:38 AM F[employer]ASS QUALITY TECHNICIAN RENAL FUNCTION PANEL Routine 04/29/2024 12:38 AM F[employer]ASS QUALITY TECHNICIAN CBC WITHOUT DIFFERENTIAL Routine 04/29/2024 12:38 AM F[employer]ASS QUALITY TECHNICIAN HEMOGLOBIN AND HEMATOCRIT Timed 04/28/2024 12:33 PM F[employer]ERGLASS QUALITY TECHNICIAN XR CHEST 1 VIEW IP Routine 04/28/2024 6:50 AM F[employer]ERGLASS QUALITY TECHNICIAN EGFR Routine 04/28/2024 12:33 AM F[employer]ASS QUALITY TECHNICIAN MAGNESIUM Routine 04/28/2024 12:33 AM F[employer]GLASS QUALITY TECHNICIAN RENAL FUNCTION PANEL Routine 04/28/2024 12:33 AM F[employer]ASS QUALITY TECHNICIAN CBC WITHOUT DIFFERENTIAL Routine 04/28/2024 12:33 AM F[employer]ASS QUALITY TECHNICIAN POCT GLUCOSE DEVICE Routine 04/27/2024 8 :10 PM F[employer]ASS QUALITY TECHNICIAN XR CHEST 1 VIEW ED Urgent/IP Urgent 04/27/2024 12:24 PM F[employer]ASS QUALITY TECHNICIAN POCT GLUCOSE DEVICE Routine 04/27/2024 7 :56 AM F[employer]ER[employer]ASS QUALITY TECHNICIAN XR CHEST 1 VIEW IP Routine 04/27/2024 6:44 AM F[employer]ASS QUALITY TECHNICIAN RENAL FUNCTION PANEL Timed 04/27/2024 12:47 AM F[employer]ASS QUALITY TECHNICIAN EGFR Timed 04/27/2024 12:47 AM F[employer]ASS QUALITY TECHNICIAN MAGNESIUM Timed 04/27/2024 12:47 AM F[employer]ERGLASS QUALITY TECHNICIAN VANCOMYCIN LEVEL TROUGH Timed 04/27/2024 12:47 AM F[employer]ASS QUALITY TECHNICIAN CBC WITHOUT DIFFERENTIAL Routine 04/27/2024 12:46 AM F[employer]ERGLASS QUALITY TECHNICIAN POCT GLUCOSE DEVICE Routine 04/26/2024 8 :17 PM F[employer]ERGLASS QUALITY TECHNICIAN SC AN PROCEDURE PLACEHOLDER Routine 04/26/2024 8:33 AM F[employer]ASS QUALITY TECHNICIAN SC AN PROCEDURE PLACEHOLDER Routine 04/26/2024 8:33 AM F[employer]ERGLASS QUALITY TECHNICIAN SC AN ELECTIVE ENDOTRACHEAL AIRWAY Routine 04/26/2024 8:33 AM F[employer]ERGLASS QUALITY TECHNICIAN MYCOLOGY (FUNGAL) CULTURE STAT 04/26/2024 8:29 AM F[employer]ERGLASS QUALITY TECHNICIAN AEROBIC AND ANAEROBIC CULTURE AND GRAM STAIN STAT 04/26/2024 8:29 AM [employer]ASS QUALITY TECHNICIAN PREPARE RBC STAT 04/26/2024 8:01 AM [employer]ASS QUALITY TECHNICIAN EXPLORATION MEDIASTINUM 04/26/2024 7:50 AM F[employer]ASS QUALITY TECHNICIAN pain TRANSFUSE RED BLOOD CELLS Timed 04/26/2024 7:39 AM F[employer]ASS QUALITY TECHNICIAN CRITICAL CARE Routine 04/26/2024 7:14 AM F[employer]ASS QUALITY TECHNICIAN Draining postoperative wound, initial encounter XR CHEST 1 VIEW IP Routine 04/26/2024 6:30 AM F[employer]ASS QUALITY TECHNICIAN PREPARE RBC STAT 04/26/2024 5:30 AM F[employer]ASS QUALITY TECHNICIAN HEMOGLOBIN AND HEMATOCRIT Timed 04/26/2024 4:53 AM F[employer]ASS QUALITY TECHNICIAN EGFR Routine 04/26/2024 1:34 AM F[employer]ASS QUALITY TECHNICIAN MAGNESIUM Routine 04/26/2024 1:34 AM F[employer]ASS QUALITY TECHNICIAN CALCIUM, IONIZED Routine 04/26/2024 1:34 AM F[employer]ERGLASS QUALITY TECHNICIAN RENAL FUNCTION PANEL Routine 04/26/2024 1:34 AM F[employer]ASS QUALITY TECHNICIAN CBC WITHOUT DIFFERENTIAL Routine 04/26/2024 1:34 AM F[employer]ASS QUALITY TECHNICIAN POTASSIUM LEVEL STAT 04/26/2024 1:34 AM F[employer]ERGLASS QUALITY TECHNICIAN CRITICAL CARE Routine 04/25/2024 6:37 PM F[employer]ASS QUALITY TECHNICIAN CAD, multiple vessel POCT GLUCOSE DEVICE Routine 04/25/2024 8 :16 AM F[employer]ERGLASS QUALITY TECHNICIAN XR CHEST 1 VIEW IP Routine 04/25/2024 6:50 AM F[employer]ERGLASS QUALITY TECHNICIAN CRITICAL CARE Routine 04/25/2024 6:48 AM F[employer]ASS QUALITY TECHNICIAN Draining postoperative wound, initial encounter EGFR Routine 04/25/2024 6:28 AM F[employer]ASS QUALITY TECHNICIAN MAGNESIUM Routine 04/25/2024 6:28 AM F[employer]ASS QUALITY TECHNICIAN CALCIUM, IONIZED Routine 04/25/2024 6:28 AM F[employer]ASS QUALITY TECHNICIAN RENAL FUNCTION PANEL Routine 04/25/2024 6:28 AM F[employer]ERGLASS QUALITY TECHNICIAN CBC WITHOUT DIFFERENTIAL Routine 04/25/2024 6:28 AM F[employer]ER[employer]ASS QUALITY TECHNICIAN CRITICAL CARE Routine 04/24/2024 10:07 PM F[employer]ER[employer]ASS QUALITY TECHNICIAN EGFR STAT 04/24/2024 10:07 PM F[employer]ER[employer]ASS QUALITY TECHNICIAN APTT STAT 04/24/2024 10:07 PM F[employer]ERGLASS QUALITY TECHNICIAN PROTIME-INR STAT 04/24/2024 10:07 PM F[employer]ERGLASS QUALITY TECHNICIAN CBC WITHOUT DIFFERENTIAL STAT 04/24/2024 10:07 PM F[employer]GLASS QUALITY TECHNICIAN CALCIUM, IONIZED STAT 04/24/2024 10:07 PM F[employer]ASS QUALITY TECHNICIAN MAGNESIUM STAT 04/24/2024 10:07 PM F[employer]ERGLASS QUALITY TECHNICIAN BASIC METABOLIC PANEL STAT 04/24/2024 10:07 PM F[employer]ERGLASS QUALITY TECHNICIAN PHOSPHORUS STAT 04/24/2024 10:07 PM F[employer]ERGLASS QUALITY TECHNICIAN MYCOLOGY (FUNGAL) CULTURE STAT 04/24/2024 8:51 PM FIBERGLASS QUALITY TECHNICIAN MYCOBACTERIOLOGY AFB CULTURE AND ACID-FAST STAIN Routine 04/24/2024 8:51 PM F[employer]ERGLASS QUALITY TECHNICIAN AEROBIC AND ANAEROBIC CULTURE AND GRAM STAIN STAT 04/24/2024 8:51 PM FIBERGLASS QUALITY TECHNICIAN XR CHEST 1 VIEW ED Urgent/IP Urgent 04/24/2024 8:22 PM F[employer]ERGLASS QUALITY TECHNICIAN SC AN PROCEDURE PLACEHOLDER Routine 04/24/2024 6:30 PM F[employer]ERGLASS QUALITY TECHNICIAN SC AN PROCEDURE PLACEHOLDER Routine 04/24/2024 6:28 PM FIBERGLASS QUALITY TECHNICIAN SC AN ELECTIVE ENDOTRACHEAL AIRWAY Routine 04/24/2024 6:28 PM F[employer]ERGLASS QUALITY TECHNICIAN EXPLORATION MEDIASTINUM 04/24/2024 5:56 PM F[employer]ERGLASS QUALITY TECHNICIAN CARDIO EGFR STAT 04/24/2024 4:58 PM F[employer]ERGLASS QUALITY TECHNICIAN DIFFERENTIAL AUTO STAT 04/24/2024 4:5 8 PM F[employer]ERGLASS QUALITY TECHNICIAN TYPE AND SCREEN STAT 04/24/2024 4:58 PM F[employer]ERGLASS QUALITY TECHNICIAN HEPATIC FUNCTION PANEL STAT 4:58 PM F[employer]ERGLASS QUALITY TECHNICIAN CBC WITH AUTO DIFFERENTIAL STAT 04/24/2024 4:58 PM F[employer]ERGLASS QUALITY TECHNICIAN BASIC METABOLIC PANEL STAT 04/24/2024 4:58 PM F[employer]ERGLASS QUALITY TECHNICIAN XR CHEST 1 VIEW ED 04/24/2024 4:56 PM F[employer]ERGLASS QUALITY TECHNICIAN PREPARE RBC STAT 04/24/2024 4:52 PM F[employer]ERGLASS QUALITY TECHNICIAN XR CHEST 1 VIEW IP Routine 04/21/2024 6:06 AM F[employer]ERGLASS QUALITY TECHNICIAN EGFR Routine 04/21/2024 3:36 AM F[employer]ERGLASS QUALITY TECHNICIAN MAGNESIUM Routine 04/21/2024 3:36 AM F[employer]ERGLASS QUALITY TECHNICIAN RENAL FUNCTION PANEL Routine 04/21/2024 3:36 AM F[employer]ERGLASS QUALITY TECHNICIAN CBC WITHOUT DIFFERENTIAL Routine 04/21/2024 3:36 AM F[employer]ERGLASS QUALITY TECHNICIAN PEP THERAPY Routine 04/20/2024 8:01 AM F[employer]ERGLASS QUALITY TECHNICIAN XR CHEST 1 VIEW IP Routine 04/20/2024 5:59 AM F[employer]ERGLASS QUALITY TECHNICIAN EGFR Routine 04/20/2024 4:40 AM F[employer]ERGLASS QUALITY TECHNICIAN MAGNESIUM Routine 04/20/2024 4:40 AM F[employer]ERGLASS QUALITY TECHNICIAN RENAL FUNCTION PANEL Routine 04/20/2024 4:40 AM F[employer]ERGLASS QUALITY TECHNICIAN CBC WITHOUT DIFFERENTIAL Routine 04/20/2024 4:40 AM F[employer]ERGLASS QUALITY TECHNICIAN XR CHEST 1 VIEW IP Routine 04/19/2024 5:58 AM F[employer]GLASS QUALITY TECHNICIAN EGFR Routine 04/19/2024 12:27 AM F[employer]GLASS QUALITY TECHNICIAN MAGNESIUM Routine 04/19/2024 12:27 AM F[employer]ERGLASS QUALITY TECHNICIAN RENAL FUNCTION PANEL Routine 04/19/2024 12:27 AM F[employer]ERGLASS QUALITY TECHNICIAN CBC WITHOUT DIFFERENTIAL Routine 04/19/2024 12:27 AM F[employer]ERGLASS QUALITY TECHNICIAN TYPE AND SCREEN Timed 04/19/2024 12:27 AM F[employer]ERGLASS QUALITY TECHNICIAN POCT GLUCOSE DEVICE Routine 04/18/2024 7:49 PM F[employer]ERGLASS QUALITY TECHNICIAN POCT GLUCOSE DEVICE Routine 04/18/2024 4 :44 PM FIBERGLASS QUALITY TECHNICIAN POCT GLUCOSE DEVICE Routine 04/18/2024 12:11 PM F[employer]ERGLASS QUALITY TECHNICIAN XR CHEST 1 VIEW IP Routine 04/18/2024 6:20 AM FIBERGLASS QUALITY TECHNICIAN POCT GLUCOSE DEVICE Routine 04/18/2024 5 :55 AM F[employer]ERGLASS QUALITY TECHNICIAN POCT GLUCOSE DEVICE Routine 04/18/2024 3 :11 AM F[employer]ERGLASS QUALITY TECHNICIAN IRON PROFILE W/ IBC Routine 04/18/2024 1 :22 AM F[employer]ERGLASS QUALITY TECHNICIAN EGFR Routine 04/18/2024 1:22 AM F[employer]ERGLASS QUALITY TECHNICIAN MAGNESIUM Routine 04/18/2024 1:22 AM F[employer]ERGLASS QUALITY TECHNICIAN CALCIUM, IONIZED Routine 04/18/2024 1:22 AM F[employer]ERGLASS QUALITY TECHNICIAN RENAL FUNCTION PANEL Routine 04/18/2024 1:22 AM F[employer]ERGLASS QUALITY TECHNICIAN CBC WITHOUT DIFFERENTIAL Routine 04/18/2024 1:22 AM F[employer]ERGLASS QUALITY TECHNICIAN POCT GLUCOSE DEVICE Routine 04/18/2024 1 :17 AM F[employer]ERGLASS QUALITY TECHNICIAN POCT GLUCOSE DEVICE Routine 04/17/2024 11:42 PM F[employer]ERGLASS QUALITY TECHNICIAN POCT GLUCOSE DEVICE Routine 04/17/2024 9 :38 PM F[employer]ERGLASS QUALITY TECHNICIAN POCT GLUCOSE DEVICE Routine 04/17/2024 7 :49 PM FIBERGLASS QUALITY TECHNICIAN HEMOGLOBIN AND HEMATOCRIT Timed 04/17/2024 5:48 PM FIBERGLASS QUALITY TECHNICIAN POCT GLUCOSE DEVICE Routine 04/17/2024 5 :21 PM F[employer]ERGLASS QUALITY TECHNICIAN POCT GLUCOSE DEVICE Routine 04/17/2024 2 :26 PM F[employer]ERGLASS QUALITY TECHNICIAN TRANSFUSE RED BLOOD CELLS Timed 04/17/2024 2:02 PM F[employer]ERGLASS QUALITY TECHNICIAN POCT GLUCOSE DEVICE Routine 04/17/2024 12:06 PM F[employer]ERGLASS QUALITY TECHNICIAN PREPARE RBC STAT 04/17/2024 11:46 AM F[employer]ERGLASS QUALITY TECHNICIAN CBC WITHOUT DIFFERENTIAL Timed 04/17/2024 11:16 AM F[employer]GLASS QUALITY TECHNICIAN POCT GLUCOSE DEVICE Routine 04/17/2024 11:10 AM F[employer]ERGLASS QUALITY TECHNICIAN XR CHEST 1 VIEW ED Urgent/IP Urgent 04/17/2024 9:47 AM F[employer]ERGLASS QUALITY TECHNICIAN POCT GLUCOSE DEVICE Routine 04/17/2024 9 :33 AM F[employer]ERGLASS QUALITY TECHNICIAN POCT GLUCOSE DEVICE Routine 04/17/2024 8 :12 AM F[employer]ERGLASS QUALITY TECHNICIAN CRITICAL CARE Routine 04/17/2024 7:39 AM F[employer]GLASS QUALITY TECHNICIAN CAD, multiple vessel POCT GLUCOSE DEVICE Routine 04/17/2024 7 :12 AM F[employer]ERGLASS QUALITY TECHNICIAN XR CHEST 1 VIEW IP Routine 04/17/2024 6:10 AM F[employer]ERGLASS QUALITY TECHNICIAN POCT GLUCOSE DEVICE Routine 04/17/2024 6 :08 AM F[employer]ERGLASS QUALITY TECHNICIAN POCT GLUCOSE DEVICE Routine 04/17/2024 3 :18 AM F[employer]ERGLASS QUALITY TECHNICIAN BLOOD GAS, ARTERIAL Routine 04/17/2024 3 :08 AM F[employer]ERGLASS QUALITY TECHNICIAN HEMOGLOBIN AND HEMATOCRIT Routine 04/17/2024 3:08 AM F[employer]ERGLASS QUALITY TECHNICIAN POCT GLUCOSE DEVICE Routine 04/17/2024 2 :14 AM F[employer]ERGLASS QUALITY TECHNICIAN TRANSFUSE RED BLOOD CELLS Timed 04/17/2024 1:37 AM F[employer]ERGLASS QUALITY TECHNICIAN POCT GLUCOSE DEVICE Routine 04/17/2024 1 :05 AM F[employer]ASS QUALITY TECHNICIAN EGFR Routine 04/17/2024 12:51 AM F[employer]ASS QUALITY TECHNICIAN MAGNESIUM Routine 04/17/2024 12:51 AM [employer]ALITY TECHNICIAN CALCIUM, IONIZED Routine 04/17/2024 12:51 AM [employer]ALITY TECHNICIAN RENAL FUNCTION PANEL Routine 04/17/2024 12:51 AM [employer]AL[employer] TECHNICIAN CBC WITHOUT DIFFERENTIAL Routine 04/17/2024 12:51 AM [employer] QUALITY TECHNICIAN POCT GLUCOSE DEVICE Routine 04/17/2024 12:17 AM [employer]AL[employer] TECHNICIAN POCT GLUCOSE DEVICE Routine 04/16/2024 11:06 PM [employer] TECHNICIAN POCT GLUCOSE DEVICE Routine 04/16/2024 10:07 PM [employer]AL[employer] TECHNICIAN XR CHEST 1 VIEW ED Urgent/IP Urgent 04/16/2024 9:15 PM [employer]AL[employer] TECHNICIAN OXYHEMOGLOBIN, CENTRAL VENOUS STAT 04/16/2024 9:14 PM [employer]AL[employer] TECHNICIAN POCT GLUCOSE DEVICE Routine 04/16/2024 8 :48 PM [employer]AL[employer] TECHNICIAN CRITICAL CARE Routine 04/16/2024 7:49 PM [employer]ALITY TECHNICIAN CAD, multiple vessel OXYHEMOGLOBIN, CENTRAL VENOUS STAT 04/16/2024 7:44 PM [employer]AL[employer] TECHNICIAN POCT GLUCOSE DEVICE Routine 04/16/2024 7 :27 PM [employer]AL[employer] TECHNICIAN POCT GLUCOSE DEVICE Routine 04/16/2024 6 :04 PM [employer]AL[employer] TECHNICIAN POCT GLUCOSE DEVICE Routine 04/16/2024 5 :23 PM [employer]AL[employer] TECHNICIAN POCT GLUCOSE DEVICE Routine 04/16/2024 3 :10 PM [employer]AL[employer] TECHNICIAN POCT GLUCOSE DEVICE Routine 04/16/2024 2 :27 PM [employer] QUAL[employer] TECHNICIAN BLOOD GAS, ARTERIAL STAT 04/16/2024 2 :24 PM [employer] QU[employer] TECHNICIAN EGFR STAT 04/16/2024 1:33 PM [employer] QUAL[employer] TECHNICIAN DIFFERENTIAL AUTO STAT 04/16/2024 1:3 3 PM [employer] QUAL[employer] TECHNICIAN RENAL FUNCTION PANEL STAT 04/16/2024 1:33 PM [employer] QUAL[employer] TECHNICIAN CBC WITH AUTO DIFFERENTIAL STAT 04/16/2024 1:33 PM [employer] QUALITY TECHNICIAN POCT GLUCOSE DEVICE Routine 04/16/2024 1 :06 PM [employer] QUAL[employer] TECHNICIAN POCT GLUCOSE DEVICE Routine 04/16/2024 11:03 AM [employer] QUAL[employer] TECHNICIAN POCT GLUCOSE DEVICE Routine 04/16/2024 10:08 AM [employer] QUALITY TECHNICIAN POCT GLUCOSE DEVICE Routine 04/16/2024 8 :50 AM [employer] QUAL[employer] TECHNICIAN LACTATE STAT 04/16/2024 8:44 AM [employer] QUAL[employer] TECHNICIAN BLOOD GAS, ARTERIAL STAT 04/16/2024 8 :44 AM [employer] QUALITY TECHNICIAN FIBRINOGEN STAT 04/16/2024 8:44 AM [employer] QU[employer] TECHNICIAN APTT STAT 04/16/2024 8:44 AM [employer] QUALITY TECHNICIAN PROTIME-INR STAT 04/16/2024 8:44 AM [employer] QU[employer] TECHNICIAN POCT GLUCOSE DEVICE Routine 04/16/2024 7 :07 AM [employer] QUAL[employer] TECHNICIAN CRITICAL CARE Routine 04/16/2024 6:28 AM [employer] QUAL[employer] TECHNICIAN CAD, multiple vessel POCT GLUCOSE DEVICE Routine 04/16/2024 5 :58 AM [employer] QUALITY TECHNICIAN XR CHEST 1 VIEW IP Routine 04/16/2024 5:42 AM [employer] QUAL[employer] TECHNICIAN EXTUBATION Routine 04/16/2024 5:32 AM [employer] QUALITY TECHNICIAN HEMOGLOBIN AND HEMATOCRIT Routine 04/16/2024 5:11 AM [employer] QU[employer] TECHNICIAN POTASSIUM LEVEL Routine 04/16/2024 5:11 AM [employer] QUALITY TECHNICIAN BLOOD GAS, ARTERIAL Routine 04/16/2024 5 :11 AM [employer] QUALITY TECHNICIAN POCT GLUCOSE DEVICE Routine 04/16/2024 4 :00 AM [employer] QUALITY TECHNICIAN POCT GLUCOSE DEVICE Routine 04/16/2024 2 :07 AM [employer] QUALITY TECHNICIAN POCT GLUCOSE DEVICE Routine 04/16/2024 1 :01 AM [employer] QUALITY TECHNICIAN OXYHEMOGLOBIN, PULMONARY ARTERY Routine 04/16/2024 12:22 AM [employer] QUALITY TECHNICIAN POCT GLUCOSE DEVICE Routine 04/16/2024 12:11 AM [employer] QUALITY TECHNICIAN EGFR Routine 04/16/2024 12:07 AM [employer] QUAL[employer] TECHNICIAN LACTATE Routine 04/16/2024 12:07 AM [employer] QUALITY TECHNICIAN MAGNESIUM Routine 04/16/2024 12:07 AM [employer] QUALITY TECHNICIAN CALCIUM, IONIZED Routine 04/16/2024 12:07 AM [employer] QUALITY TECHNICIAN RENAL FUNCTION PANEL Routine 04/16/2024 12:07 AM [employer] QUALITY TECHNICIAN CBC WITHOUT DIFFERENTIAL Routine 04/16/2024 12:07 AM [employer] QUALITY TECHNICIAN POCT GLUCOSE DEVICE Routine 04/15/2024 11:06 PM [employer] QUALITY TECHNICIAN CRITICAL CARE Routine 04/15/2024 11:02 PM [employer] QUALITY TECHNICIAN POCT GLUCOSE DEVICE Routine 04/15/2024 9 :53 PM [employer] QUALITY TECHNICIAN POCT GLUCOSE DEVICE Routine 04/15/2024 8 :59 PM [employer] QUALITY TECHNICIAN POCT GLUCOSE DEVICE Routine 04/15/2024 8 :04 PM [employer] QUAL[employer] TECHNICIAN XR CHEST 1 VIEW ED Urgent/IP Urgent 04/15/2024 7:09 PM [employer] QUALITY TECHNICIAN EGFR Routine 04/15/2024 7:06 PM [employer] QUAL[employer] TECHNICIAN PHOSPHORUS Routine 04/15/2024 7:06 PM [employer] QUAL[employer] TECHNICIAN BILIRUBIN, DIRECT Routine 04/15/2024 7:0 6 PM [employer] QUAL[employer] TECHNICIAN COMPREHENSIVE METABOLIC PANEL Routine 04/15/2024 7:06 PM [employer] QUALITY TECHNICIAN MAGNESIUM Routine 04/15/2024 7:06 PM [employer] QUALITY TECHNICIAN FIBRINOGEN STAT 04/15/2024 6:46 PM [employer] QUALITY TECHNICIAN LACTATE STAT 04/15/2024 6:46 PM [employer] QUALITY TECHNICIAN APTT STAT 04/15/2024 6:46 PM [employer] QUALITY TECHNICIAN PROTIME-INR STAT 04/15/2024 6:46 PM [employer] QUALITY TECHNICIAN CBC WITHOUT DIFFERENTIAL STAT 04/15/2024 6:46 PM [employer] QUALITY TECHNICIAN BLOOD GAS, ARTERIAL STAT 04/15/2024 6 :46 PM [employer] QUALITY TECHNICIAN CALCIUM, IONIZED STAT 04/15/2024 6:46 PM [employer] QUALITY TECHNICIAN POCT GLUCOSE DEVICE Routine 04/15/2024 6 :35 PM [employer] QUALITY TECHNICIAN PROTIME-INR STAT 04/15/2024 5:40 PM [employer] QUALITY TECHNICIAN FIBRINOGEN STAT 04/15/2024 5:40 PM [employer] QUALITY TECHNICIAN CBC WITHOUT DIFFERENTIAL STAT 04/15/2024 5:40 PM [employer] QUALITY TECHNICIAN APTT STAT 04/15/2024 5:40 PM [employer] QUALITY TECHNICIAN POCT GLUCOSE DEVICE Routine 04/15/2024 5 :28 PM [employer] QUALITY TECHNICIAN PREPARE RBC STAT 04/15/2024 5:28 PM [employer] QUALITY TECHNICIAN POC BLOOD GAS AND CHEMISTRIES, ARTERIAL Routine 04/15/2024 5:16 PM [employer] QUALITY TECHNICIAN POCT ACTIVATED CLOTTING TIME, HIGH RANGE Routine 04/15/2024 5:16 PM [employer] QUALITY TECHNICIAN POC BLOOD GAS AND CHEMISTRIES, ARTERIAL Routine 04/15/2024 4:47 PM [employer] QUALITY TECHNICIAN POCT ACTIVATED CLOTTING TIME, HIGH RANGE Routine 04/15/2024 4:46 PM [employer] QUALITY TECHNICIAN POC BLOOD GAS AND CHEMISTRIES, ARTERIAL Routine 04/15/2024 4:03 PM [employer] QUALITY TECHNICIAN POCT ACTIVATED CLOTTING TIME, HIGH RANGE Routine 04/15/2024 4:02 PM [employer] QUALITY TECHNICIAN POC BLOOD GAS AND CHEMISTRIES, ARTERIAL Routine 04/15/2024 3:31 PM [employer] QUALITY TECHNICIAN POCT ACTIVATED CLOTTING TIME, HIGH RANGE Routine 04/15/2024 3:30 PM [employer] QUALITY TECHNICIAN POC BLOOD GAS AND CHEMISTRIES, ARTERIAL Routine 04/15/2024 3:03 PM [employer] QUALITY TECHNICIAN POCT ACTIVATED CLOTTING TIME, HIGH RANGE Routine 04/15/2024 3:02 PM [employer] QUALITY TECHNICIAN POC BLOOD GAS AND CHEMISTRIES, ARTERIAL Routine 04/15/2024 2:27 PM [employer] QUALITY TECHNICIAN POCT ACTIVATED CLOTTING TIME, HIGH RANGE Routine 04/15/2024 2:26 PM [employer] QUALITY TECHNICIAN POC BLOOD GAS AND CHEMISTRIES, ARTERIAL Routine 04/15/2024 2:00 PM [employer] QUALITY TECHNICIAN POCT ACTIVATED CLOTTING TIME, HIGH RANGE Routine 04/15/2024 1:59 PM [employer] QUALITY TECHNICIAN POC BLOOD GAS AND CHEMISTRIES, VENOUS Routine 04/15/2024 1:41 PM [employer] QUALITY TECHNICIAN POC BLOOD GAS AND CHEMISTRIES, ARTERIAL Routine 04/15/2024 1:33 PM [employer] QUALITY TECHNICIAN POCT ACTIVATED CLOTTING TIME, HIGH RANGE Routine 04/15/2024 1:32 PM [employer] QUALITY TECHNICIAN POC BLOOD GAS AND CHEMISTRIES, ARTERIAL Routine 04/15/2024 1:16 PM [employer] QUALITY TECHNICIAN POCT ACTIVATED CLOTTING TIME, HIGH RANGE Routine 04/15/2024 1:15 PM [employer] QUALITY TECHNICIAN SC AN PROCEDURE PLACEHOLDER Routine 04/15/2024 11:57 AM [employer] QUALITY TECHNICIAN SC AN PROCEDURE PLACEHOLDER Routine 04/15/2024 10:46 AM [employer] QUALITY TECHNICIAN SC AN CENTRAL LINE QUADRUPLE LUMEN Routine 04/15/2024 10:46 AM [employer] QUALITY TECHNICIAN SC AN PROCEDURE PLACEHOLDER Routine 04/15/2024 10:45 AM [employer] QUALITY TECHNICIAN ANESTHESIA CENTRAL VENOUS LINE PLACEMENT Routine 04/15/2024 10:45 AM [employer] QUALITY TECHNICIAN ANESTHESIA CENTRAL VENOUS LINE PLACEMENT Routine 04/15/2024 10:45 AM [employer] QUALITY TECHNICIAN SC AN PROCEDURE PLACEHOLDER Routine 04/15/2024 10:45 AM [employer] QUALITY TECHNICIAN SC AN PROCEDURE PLACEHOLDER Routine 04/15/2024 10:42 AM [employer] QUALITY TECHNICIAN SC AN ELECTIVE ENDOTRACHEAL AIRWAY Routine 04/15/2024 10:42 AM [employer] QUALITY TECHNICIAN POCT ACTIVATED CLOTTING TIME, HIGH RANGE Routine 04/15/2024 10:12 AM [employer] QUALITY TECHNICIAN CORONARY ARTERY BYPASS GRAFT 04/15/2024 9:29 AM [employer] QUALITY TECHNICIAN CAD, multiple vessel MARIUM ADD-ON FOR OR Routine 04/15/2024 8:0 4 AM [employer] QUALITY TECHNICIAN EGFR Routine 04/15/2024 3:48 AM [employer] QUALITY TECHNICIAN DIFFERENTIAL AUTO Routine 04/15/2024 3:4 8 AM [employer] QUALITY TECHNICIAN APTT Routine 04/15/2024 3:48 AM [employer] QUALITY TECHNICIAN CBC WITH AUTO DIFFERENTIAL Routine 04/15/2024 3:48 AM [employer] QUALITY TECHNICIAN BASIC METABOLIC PANEL Routine 04/15/2024 3:48 AM [employer] QUALITY TECHNICIAN ECG 12-LEAD Routine 04/14/2024 3:54 PM [employer] QUALITY TECHNICIAN XR CHEST PA LATERAL 2 VIEWS IP Routine 04/14/2024 3:51 PM [employer] QUALITY TECHNICIAN LIPID PANEL Routine 04/14/2024 3:22 PM [employer] QUALITY TECHNICIAN HEMOGLOBIN A1C Routine 04/14/2024 3:22 PM [employer] QUALITY TECHNICIAN TYPE AND SCREEN Timed 04/14/2024 3:22 PM [employer] QUALITY TECHNICIAN PREPARE RBC STAT 04/14/2024 2:31 PM [employer] QUALITY TECHNICIAN APTT Timed 04/14/2024 10:38 AM [employer] QUALITY TECHNICIAN EGFR Routine 04/14/2024 4:35 AM [employer] QUALITY TECHNICIAN DIFFERENTIAL AUTO Routine 04/14/2024 4:3 5 AM [employer] QUALITY TECHNICIAN APTT Timed 04/14/2024 4:35 AM [employer] QUALITY TECHNICIAN CBC WITH AUTO DIFFERENTIAL Routine 04/14/2024 4:35 AM [employer] QUALITY TECHNICIAN BASIC METABOLIC PANEL Routine 04/14/2024 4:35 AM [employer] QUALITY TECHNICIAN B CHECK SAMPLE STAT 04/14/2024 4:31 AM [employer] QUALITY TECHNICIAN APTT Timed 04/13/2024 9:58 PM [employer] QUALITY TECHNICIAN APTT STAT 04/13/2024 2:56 PM [employer] QUALITY TECHNICIAN EGFR Routine 04/13/2024 2:56 PM [employer] QUALITY TECHNICIAN PHOSPHORUS Routine 04/13/2024 2:56 PM [employer] QUALITY TECHNICIAN MAGNESIUM Routine 04/13/2024 2:56 PM [employer] QUALITY TECHNICIAN COMPREHENSIVE METABOLIC PANEL Routine 04/13/2024 2:56 PM [employer] QUALITY TECHNICIAN CBC WITHOUT DIFFERENTIAL STAT 04/13/2024 2:56 PM [employer] QUALITY TECHNICIAN PROTIME-INR STAT 04/13/2024 2:[address] [address]IC[address] BODY OUTSIDE REFERENCE Routine 04/13/2024 1:19 PM [employer] QUALITY TECHNICIAN CARDIOLOGY DOCUMENT SCAN Routine 04/12/2024 10:01 AM [employer] QUALITY TECHNICIAN PSA SCREEN Routine 10/09/2017 7:39 AM CDT from Last 3 Months or Most Recently Relevant to Health Maintenance Results * (ABNORMAL) Iron profile w/ IBC (06/03/2024 9:57 AM [employer] QUALITY TECHNICIAN) Iron 58 50 - 150 mcg/dL TIBC 195(L) 250 - 400 mcg/dL [facility] Transferrin saturation 30 20 - 50 % [facility] Blood 06/03/2024 9:57 AM [employer] QUALITY TECHNICIAN 06/03/2024 1:12 PM [employer] QUALITY TECHNICIAN us Notinfile Unknown LAB BLOOD ORDERABLES Final Res ult [facility] Department [place] [address] 600 * Hemoglobin A1c (06/03/2024 9:57 AM [employer] QUALITY TECHNICIAN) Hgb A1C 4.8 4.0 - 5.6 % Estimated Average Glucose 91 mg/dL [facility] Comment: The ADA recommends reporting an estimated Average Glucose (eAG) with all Hemoglobin A1c results using the equation derived from a study of 507 normal and diabetic adults. Minority populations were underrepresented and children were not included. (Diabetes Care 2020; 43(S1): S66-S76). The eAG is not equivalent to a fasting glucose. Blood 06/03/2024 9:57 AM [employer] QUALITY TECHNICIAN 06/03/2024 1:13 PM [employer] QUALITY TECHNICIAN us Notinfile Unknown LAB BLOOD ORDERABLES Final Res ult Performing Organization Address [facility] [place] [address] * Ferritin (06/03/2024 9:57 AM [employer] QUALITY TECHNICIAN) Pathologist [facility] Ferritin 56 30 - 400 ng/mL Blood 06/03/2024 9:57 AM [employer] QUALITY TECHNICIAN 06/03/2024 1:12 PM [employer] QUALITY TECHNICIAN us Notinfile Unknown LAB BLOOD ORDERABLES Final Res ult Performing Organization Address [facility] [place] [address] * POCT lipid panel (06/01/2024 12:08 AM [employer] QUALITY TECHNICIAN) HDL, POC 43 mg/dL Triglycerides, POC 188 mg/dL LDL Cholesterol POC 71 mg/dL Chol/HDL Ratio, POC 1.7 Non-HDL Cholesterol, POC 109 mg/dL Cholesterol Total, POC 152 mg/dL Capillary blood 06/01/2024 1 2:08 AM [employer] QUAL[employer] TECHNICIAN us Anuel Kendall MD POINT OF CARE TEST ORDERABLES Fi nal Result * eGFR (05/01/2024 8:40 AM [employer] QUALITY TECHNICIAN) eGFR 89 >=60 mL/min/1. 73 m2 Comment: [...] last reviewed 2021. Blood 05/01/2024 8:40 AM [employer] QUALITY TECHNICIAN 05/01/2024 1:50 PM [employer] QUALITY TECHNICIAN us Notinfile Unknown LAB BLOOD ORDERABLES Final Res ult [facility] [place] [address] * (ABNORMAL) Differential, auto (05/01/2024 8:40 AM [employer] QUALITY TECHNICIAN) Neutrophil abs 6.7(H) 1.5 - 6.5 K/cumm Imm gran abs 0.0 0.0 - 0.1 K/cumm [facility] Lymphocyte abs 0.7(L) 0.8 - 3.3 K/cumm [facility] Monocyte abs 0.7 0.2 - 0.8 K/cumm [facility] Eosinophil abs 0.6(H) 0.0 - 0.5 K/cumm [facility] Basophil abs 0.1 0.0 - 0.1 K/cumm [facility] Neutrophil pct 75.9 % [facility] Comment: Interpretive Data Percent cell count reference ranges are not reported, since discordance with absolute values may lead to misinterpretation of CBC data. Current Interpretive Data was last revised on 2017. Imm gran pct 0.5 % [facility] Comment: Interpretive Data Percent cell count reference ranges are not reported, since discordance with absolute values may lead to misinterpretation of CBC data. Current Interpretive Data was last revised on 2017. Lymphocyte pct 8.2 % [facility] Comment: Interpretive Data Percent cell count reference ranges are not reported, since discordance with absolute values may lead to misinterpretation of CBC data. Current Interpretive Data was last revised on 2017. Monocyte pct 8.2 % [facility] Comment: Interpretive Data Percent cell count reference ranges are not reported, since discordance with absolute values may lead to misinterpretation of CBC data. Current Interpretive Data was last revised on 2017. Eosinophil pct 6.4 % [facility] Comment: Interpretive Data Percent cell count reference ranges are not reported, since discordance with absolute values may lead to misinterpretation of CBC data. Current Interpretive Data was last revised on 2017. Basophil pct 0.8 % [facility] Comment: Interpretive Data Percent cell count reference ranges are not reported, since discordance with absolute values may lead to misinterpretation of CBC data. Current Interpretive Data was last revised on 2017. Blood 05/01/2024 8:40 AM [employer] QUALITY TECHNICIAN 05/01/2024 1:47 PM [employer] QUALITY TECHNICIAN us Notinfile Unknown LAB BLOOD ORDERABLES Final Res ult [facility] [place] [address] * (ABNORMAL) CBC with auto differential (05/01/2024 8:40 AM [employer] QUALITY TECHNICIAN) WBC 8.8 3.8 - 9.9 K/cumm Hgb 7.9(L) 13.0 - 17.5 g/dL [facility] Hct 25.6(L) 38.9 - 50.3 % [facility] Plt 397 150 - 400 K/cumm [facility] MPV 10.1 9.1 - 12.3 fL [facility] RBC 2.75(L) 4.30 - 5.80 M/cumm [facility] MCV 93.1 81.3 - 96.4 fL [facility] MCH 28.7 27.1 - 33.3 pg [facility] MCHC 30.9(L) 32.3 - 35.7 g/dL [facility] RDW CV 14.6 11.1 - 14.9 % [facility] RDW SD 48.6(H) 35.7 - 48.1 fL [facility] NRBC abs 0.00 0.00 - 0.01 K/cumm [facility] Blood 05/01/2024 8:40 AM [employer] QUALITY TECHNICIAN 05/01/2024 1:47 PM [employer] QUALITY TECHNICIAN us Notinfile Unknown LAB BLOOD ORDERABLES Final Res ult Performing Organization Address City/[facility]/ZIP Co de Phone Number [facility] [place] [employer] [place] [address] * Vancomycin level trough Ordered by Brenda Unknown (05/01/2024 8:40 AM [employer] QUALITY TECHNICIAN) Pathologist [facility] Vancomycin trough 18.3 10.0 - 20.0 mcg/mL Blood 05/01/2024 8:40 AM [employer] QUALITY TECHNICIAN 05/01/2024 1:47 PM [employer] QUALITY TECHNICIAN us Notinfile Unknown LAB BLOOD ORDERABLES Final Res ult [facility] [place] [employer] [place] [address] * (ABNORMAL) Comprehensive metabolic panel (05/01/2024 8:40 AM [employer] QUALITY TECHNICIAN) Pathologist [facility] Sodium 141 135 - 145 mmol/L Potassium, pl 4.4 3.3 - 4.9 mmol/L [facility] Chloride 102 97 - 110 mmol/L [facility] CO2 27 22 - 32 mmol/L [facility] Anion gap 12 2 - 15 mmol/L [facility] BUN 13 6 - 25 mg/dL [facility] Creatinine 0.97 0.80 - 1.30 mg/dL [facility] Glucose 82 70 - 199 mg/dL [facility] Comment: Interpretive Data Fasting glucose >/= 126 [...] 2022. Calcium 9.7 8.5 - 10.3 mg/dL [facility] Bilirubin, total 0.2 0.1 - 1.2 mg/dL [facility] Protein, pl 7.4 6.5 - 8.5 g/dL [facility] Albumin 3.3(L) 3.5 - 5.0 g/dL [facility] Alk phos 172(H) 40 - 130 Units/L [facility] ALT 56(H) 7 - 55 Units/L [facility] AST 41 10 - 50 Units/L [facility] Blood 05/01/2024 8:40 AM [employer] QUALITY TECHNICIAN 05/01/2024 1:47 PM [employer] QUALITY TECHNICIAN us Notinfile Unknown LAB BLOOD ORDERABLES Final Res ult [facility] Department [place] [address] * XR Chest 1 Vw (04/29/2024 2:57 PM [employer] QUALITY TECHNICIAN) Anatomical Region Laterality Modality Body, Chest N/A Computed Radiogr aphy 04/29/2024 3:13 PM [employer] QUALITY TECHNICIAN Impressions 04/29/2024 3:19 PM [employer] QUALITY TECHNICIAN Median sternotomy wires are aligned and intact. [...] Santiago Bonilla M.D. Narrative 04/29/2024 3:19 PM [employer] QUALITY TECHNICIAN EXAMINATION: XR CHEST 1 VIEW HISTORY: chest [...] signed by: Santiago Bonilla M.D. Rosibel [facility] XR PROCEDURES Final Result * XR Chest 1 Vw (04/29/2024 2:04 PM [employer] QUALITY TECHNICIAN) Anatomical Region Laterality Modality Body, Chest N/A Computed Radiogr aphy 04/29/2024 2:09 PM [employer] QUALITY TECHNICIAN Impressions 04/29/2024 2:09 PM [employer] QUALITY TECHNICIAN Comparison is made to 04/29/2024 radiograph performed [...] Ottoniel Hernandes D.O. Narrative 04/29/2024 2:09 PM [employer] QUALITY TECHNICIAN EXAMINATION: XR CHEST 1 VIEW Procedure Note [...] [facility] XR PROCEDURES Final Result * SC INSJ NON-TUNNELED CENTRAL VENOUS CATH AGE 5 YR/> (04/29/2024 11:39 AM [employer] QUALITY TECHNICIAN) Narrative Rosibel Pacheco PA - 04/29/2024 11:39 AM [employer] QUALITY TECHNICIAN Rosibel Pacheco PA 04/29/2024 11:41 AM PICC Line Insertion Date/Time: 04/29/2024 11:39 AM Performed by: Rosibel Pacheco PA Authorized by: Rosibel Pacheco PA [place] Protocol: RN Notified of Procedure: yes Informed consent: Risks, benefits, alternatives discussed and patient/unit support representative/guardian agrees and accepts Patient's stated name/ [...] (ABNORMAL) Hemoglobin and hematocrit (04/29/2024 7:48 AM [employer] QUALITY TECHNICIAN) Hgb 7.3(L) 13.0 - 17.5 g/dL Hct 23.8(L) 38.9 - 50.3 % [facility] Blood 04/29/2024 7:48 AM [employer] QUALITY TECHNICIAN 04/29/2024 8:01 AM F[employer] QUALITY TECHNICIAN Rosibel [facility] LAB BLOOD ORDERABLES Fin al Result [facility] [address] Department [place] [address] * XR Chest 1 View - Portable - in AM (04/29/2024 5:42 AM F[employer] QUALITY TECHNICIAN) Anatomical Region Laterality Modality Body, Chest N/A Computed Radiogr aphy 04/29/2024 9:36 AM [employer] QUALITY TECHNICIAN Impressions 04/29/2024 9:36 AM [employer] QUALITY TECHNICIAN Comparison is made to chest radiograph dated [...] Anika Rincon M.D. Narrative 04/29/2024 9:36 AM [employer] QUALITY TECHNICIAN EXAMINATION: 1 view chest radiograph Procedure Note [...] Resu lt * eGFR (04/29/2024 12:38 AM [employer] QUALITY TECHNICIAN) eGFR 89 >=60 mL/min/1. 73 m2 Comment: [...] reviewed 2021. Blood 04/29/2024 12:3 8 AM [employer] QUALITY TECHNICIAN 04/29/2024 1:05 AM [employer] QUALITY TECHNICIAN us Horacio [facility] LAB BLOOD ORDERABLES Final R esult Performing Organization Address City/[facility]/ZIP Co de Phone Number [facility] [address] Department [place] [address] * (ABNORMAL) CBC without differential (04/29/2024 12:38 AM F[employer]ASS QUALITY TECHNICIAN) WBC 8.5 3.8 - 9.9 K/cumm Hgb 6.8(L) 13.0 - 17.5 g/dL [facility] Hct 22.0(L) 38.9 - 50.3 % [facility] Plt 344 150 - 400 K/cumm [facility] MPV 9.8 9.1 - 12.3 fL [facility] RBC 2.32(L) 4.30 - 5.80 M/cumm [facility] MCV 94.8 81.3 - 96.4 fL [facility] MCH 29.3 27.1 - 33.3 pg [facility] MCHC 30.9(L) 32.3 - 35.7 g/dL [facility] RDW CV 14.2 11.1 - 14.9 % [facility] RDW SD 47.4 35.7 - 48.1 fL [facility] NRBC abs 0.00 0.00 - 0.01 K/cumm [facility] Blood 04/29/2024 12:3 8 AM [employer] QUALITY TECHNICIAN 04/29/2024 1:05 AM F[employer] QUALITY TECHNICIAN Horacio [facility] LAB BLOOD ORDERABLES Final R esult [facility] [address] [place] [address] * Magnesium (04/29/2024 12:38 AM F[employer] QUALITY TECHNICIAN) [facility] Magnesium 2.0 1.4 - 2.5 mg/dL Blood 04/29/2024 12:3 8 AM [employer] QUALITY TECHNICIAN 04/29/2024 1:05 AM F[employer]ASS QUALITY TECHNICIAN Horacio [facility] LAB BLOOD ORDERABLES Final R esult [facility] [address] [place] [address] * (ABNORMAL) Renal function panel (04/29/2024 12:38 AM F[employer]ASS QUALITY TECHNICIAN) [facility] Sodium 141 135 - 145 mmol/L Potassium, pl 4.2 3.3 - 4.9 mmol/L [facility] Chloride 106 97 - 110 mmol/L [facility] CO2 25 22 - 32 mmol/L [facility] Anion gap 10 2 - 15 mmol/L [facility] BUN 14 6 - 25 mg/dL [facility] Creatinine 0.97 0.80 - 1.30 mg/dL [facility] Glucose 113 70 - 199 mg/dL [facility] Comment: Interpretive Data Fasting glucose >/= 126 [...] 2022. Calcium 8.8 8.5 - 10.3 mg/dL [facility] Phosphorus, pl 5.0(H) 2.3 - 4.5 mg/dL [facility] Albumin 2.8(L) 3.5 - 5.0 g/dL [facility] Blood 04/29/2024 12:3 8 AM [employer] QUALITY TECHNICIAN 04/29/2024 1:05 AM [employer] QUALITY TECHNICIAN us Horacio WISE LAB BLOOD ORDERABLES Final R esult Performing Organization Address [facility] Co de Phone Number [facility] [address] [place] [address] * (ABNORMAL) Hemoglobin and hematocrit (04/28/2024 12:33 PM [employer] QUALITY TECHNICIAN) Hgb 7.7(L) 13.0 - 17.5 g/dL Hct 24.6(L) 38.9 - 50.3 % [facility] Blood 04/28/2024 12:3 3 PM [employer] QUALITY TECHNICIAN 04/28/2024 12:42 PM [employer] QUALITY TECHNICIAN us Jessica WISE LAB BLOOD ORDERABLES Fi nal Result Performing Organization Address [facility] Co de Phone Number [facility] [address] Department [place] [address] * XR Chest 1 View - Portable - in AM (04/28/2024 6:50 AM [employer] QUALITY TECHNICIAN) Anatomical Region Laterality Modality Body, Chest N/A Computed Radiogr aphy 04/28/2024 8:00 AM [employer] QUALITY TECHNICIAN Impressions 04/28/2024 8:00 AM [employer] QUALITY TECHNICIAN Comparison 04/27/2024. Median sternotomy wires are aligned. Mediastinal/pericardial drains are noted. Unchanged left basilar and right midlung opacities likely representing atelectasis with a small left pleural effusion. Lung volumes remain small. This is unchanged. No pneumothorax. The heart size is unchanged. Electronically signed by: Jacob Cardona M.D. Narrative 04/28/2024 8:00 AM [employer] QUALITY TECHNICIAN EXAMINATION: 1 view chest radiograph Procedure Note [...] Resu lt * eGFR (04/28/2024 12:33 AM [employer] QUALITY TECHNICIAN) eGFR >90 >=60 mL/min/1. 73 m2 Comment: [...] reviewed 2021. Blood 04/28/2024 12:3 3 AM [employer] QUALITY TECHNICIAN 04/28/2024 12:38 AM [employer] QUALITY TECHNICIAN us Horacio WISE LAB BLOOD ORDERABLES Final R esult [facility] [address] Department [place] [address] * (ABNORMAL) CBC without differential (04/28/2024 12:33 AM [employer] QUALITY TECHNICIAN) WBC 9.1 3.8 - 9.9 K/cumm Hgb 7.2(L) 13.0 - 17.5 g/dL [facility] Hct 23.2(L) 38.9 - 50.3 % [facility] Plt 362 150 - 400 K/cumm [facility] MPV 9.5 9.1 - 12.3 fL [facility] RBC 2.47(L) 4.30 - 5.80 M/cumm [facility] MCV 93.9 81.3 - 96.4 fL [facility] MCH 29.1 27.1 - 33.3 pg [facility] MCHC 31.0(L) 32.3 - 35.7 g/dL [facility] RDW CV 13.9 11.1 - 14.9 % [facility] RDW SD 47.3 35.7 - 48.1 fL [facility] NRBC abs 0.00 0.00 - 0.01 K/cumm [facility] Blood 04/28/2024 12:3 3 AM FIBERGLASS QUALITY TECHNICIAN 04/28/2024 12:39 AM FIBERGLASS QUALITY TECHNICIAN Horacio WISE LAB BLOOD ORDERABLES Final R esult Performing Organization Address City/[facility]/ZIP Co de Phone Number [facility] [address] [facility] [place], [place] [id number] * Magnesium (04/28/2024 12:33 AM FIBERGLASS QUALITY TECHNICIAN) Pathologist [facility] Magnesium 2.0 1.4 - 2.5 mg/dL Blood 04/28/2024 12:3 3 AM FIBERGLASS QUALITY TECHNICIAN 04/28/2024 12:38 AM FIBERGLASS QUALITY TECHNICIAN Horacio WISE LAB BLOOD ORDERABLES Final R esult Performing Organization Address City/[facility]/ZIP Co de Phone Number [facility] [address] [facility] [place] [address] * (ABNORMAL) Renal function panel (04/28/2024 12:33 AM FIBERGLASS QUALITY TECHNICIAN) Sodium 140 135 - 145 mmol/L Potassium, pl 4.1 3.3 - 4.9 mmol/L [facility] Chloride 105 97 - 110 mmol/L [facility] CO2 25 22 - 32 mmol/L [facility] Anion gap 10 2 - 15 mmol/L [facility] BUN 18 6 - 25 mg/dL [facility] Creatinine 0.94 0.80 - 1.30 mg/dL [facility] Glucose 109 70 - 199 mg/dL [facility] Comment: Interpretive Data Fasting glucose >/= 126 [...] 2022. Calcium 8.8 8.5 - 10.3 mg/dL [facility] Phosphorus, pl 5.1(H) 2.3 - 4.5 mg/dL [facility] Albumin 2.9(L) 3.5 - 5.0 g/dL [facility] Blood 04/28/2024 12:3 3 AM FIBERGLASS QUALITY TECHNICIAN 04/28/2024 12:38 AM FIBERGLASS QUALITY TECHNICIAN us Horacio WISE LAB BLOOD ORDERABLES Final R esult [facility] [address] [place] [address] * POCT glucose (04/27/2024 8:10 PM FIBERGLASS QUALITY TECHNICIAN) [facility] Signature Glucose, POC 160 70 - 199 mg/dL Comment: For Glucose values <35 mg/dl when Hematocrit is >60 mg/dl,the test may not accurately detect significant hypoglycemia,and testing in the Laboratory should be considered if clinically indicated. Blood 04/27/2024 8:10 PM FIBERGLASS QUALITY TECHNICIAN 04/27/2024 8:10 PM FIBERGLASS QUALITY TECHNICIAN us Jaime Colin MD LAB POCT ORDERABLES - DE VICE Final Result [facility] [address] Department [place] [address] * XR Chest 1 View (04/27/2024 12:24 PM FIBERGLASS QUALITY TECHNICIAN) Anatomical Region Laterality Modality Body, Chest N/A Computed Radiogr aphy 04/27/2024 12:3 5 PM FIBERGLASS QUALITY TECHNICIAN Impressions 04/27/2024 12:35 PM FIBERGLASS QUALITY TECHNICIAN Median sternotomy wires are aligned and intact. Interval removal of right-sided thoracostomy tube. Unchanged subsegmental atelectasis in the right middle lobe with small amount of fluid in the right minor fissure. Small bilateral pleural effusions. No pneumothorax. No new consolidation. Mild left basilar atelectasis. Cardiomediastinal silhouette is stable. Electronically signed by: Lucrecia Peterson M.D. Narrative 04/27/2024 12:35 PM FIBERGLASS QUALITY TECHNICIAN EXAMINATION: XR CHEST 1 VIEW HISTORY: Status [...] lt * POCT glucose (04/27/2024 7:56 AM FIBERGLASS QUALITY TECHNICIAN) Glucose, POC 116 70 - 199 mg/dL Comment: For Glucose values <35 mg/dl when Hematocrit is >60 mg/dl,the test may not accurately detect significant hypoglycemia,and testing in the Laboratory should be considered if clinically indicated. Blood 04/27/2024 7:56 AM FIBERGLASS QUALITY TECHNICIAN 04/27/2024 7:56 AM FIBERGLASS QUALITY TECHNICIAN us Jaime Colin MD LAB POCT ORDERABLES - DE VICE Final Result [facility] [address] Department [place] [address] * XR Chest 1 View - Portable - in AM (04/27/2024 6:44 AM FIBERGLASS QUALITY TECHNICIAN) Anatomical Region Laterality Modality Body, Chest N/A Computed Radiogr aphy 04/27/2024 9:44 AM FIBERGLASS QUALITY TECHNICIAN Impressions 04/27/2024 9:44 AM FIBERGLASS QUALITY TECHNICIAN Median sternotomy wires are unchanged. Mediastinal, pericardial and bilateral thoracostomy tubes are again seen. Stable small bilateral pleural effusions with associated atelectasis. There is mild bandlike atelectasis in the right midlung, which is improved from the prior exam. There is no pneumothorax. Heart and mediastinal contours are stable. Electronically signed by: Carlos Tang MD, PHD Narrative 04/27/2024 9:44 AM FIBERGLASS QUALITY TECHNICIAN EXAMINATION: XR CHEST 1 VIEW HISTORY: pleural [...] Electronically signed by: Carlos Tang MD, PHD Horacio WISE IMG XR PROCEDURES Final Resu lt * eGFR (04/27/2024 12:47 AM FIBERGLASS QUALITY TECHNICIAN) eGFR 86 >=60 mL/min/1. 73 m2 Comment: [...] reviewed 2021. Blood 04/27/2024 12:4 7 AM FIBERGLASS QUALITY TECHNICIAN 04/27/2024 2:45 AM FIBERGLASS QUALITY TECHNICIAN Jaime Colin MD LAB BLOOD ORDERABLES Fin al Result Performing Organization Address City/[facility] Co de Phone Number [facility] [address] [place] [employer] [place] [address] * Magnesium (04/27/2024 12:47 AM FIBERGLASS QUALITY TECHNICIAN) Pathologist [facility] Magnesium 2.0 1.4 - 2.5 mg/dL Blood 04/27/2024 12:4 7 AM FIBERGLASS QUALITY TECHNICIAN 04/27/2024 2:45 AM FIBERGLASS QUALITY TECHNICIAN Jaime Colin MD LAB BLOOD ORDERABLES Fin al Result Performing Organization Address [facility] Co de Phone Number [facility] [address] [place] [place] [address] * (ABNORMAL) Vancomycin level trough Obtain trough 04/27 at 0500. (04/27/2024 12:47 AM FIBERGLASS QUALITY TECHNICIAN) Vancomycin trough 21.9(H) 10.0 - 20.0 mcg/mL Blood 04/27/2024 12:4 7 AM FIBERGLASS QUALITY TECHNICIAN 04/27/2024 2:45 AM FIBERGLASS QUALITY TECHNICIAN Narrative [facility] - 04/27/2024 2:47 AM FIBERGLASS QUALITY TECHNICIAN Obtain trough 04/27 at 0500. us Horacio WISE LAB BLOOD ORDERABLES Final R esult [facility] [address] Department [place] [address] * (ABNORMAL) Renal function panel (04/27/2024 12:47 AM FIBERGLASS QUALITY TECHNICIAN) [facility] Sodium 139 135 - 145 mmol/L Potassium, pl 4.2 3.3 - 4.9 mmol/L [facility] Chloride 103 97 - 110 mmol/L [facility] CO2 24 22 - 32 mmol/L [facility] Anion gap 12 2 - 15 mmol/L [facility] BUN 16 6 - 25 mg/dL [facility] Creatinine 1.00 0.80 - 1.30 mg/dL [facility] Glucose 114 70 - 199 mg/dL [facility] Comment: Interpretive Data Fasting glucose >/= 126 [...] 2022. Calcium 8.6 8.5 - 10.3 mg/dL [facility] Phosphorus, pl 4.4 2.3 - 4.5 mg/dL [facility] Albumin 2.7(L) 3.5 - 5.0 g/dL [facility] Blood 04/27/2024 12:4 7 AM FIBERGLASS QUALITY TECHNICIAN 04/27/2024 2:45 AM FIBERGLASS QUALITY TECHNICIAN Jaime Colin MD LAB BLOOD ORDERABLES Fin al Result Performing Organization Address [facility] Co de Phone Number [facility] [address] [place] [place] [address] * (ABNORMAL) CBC without differential (04/27/2024 12:46 AM FIBERGLASS QUALITY TECHNICIAN) [facility] WBC 9.0 3.8 - 9.9 K/cumm Hgb 7.7(L) 13.0 - 17.5 g/dL [facility] Hct 24.7(L) 38.9 - 50.3 % [facility] Plt 378 150 - 400 K/cumm [facility] MPV 9.7 9.1 - 12.3 fL [facility] RBC 2.62(L) 4.30 - 5.80 M/cumm [facility] MCV 94.3 81.3 - 96.4 fL [facility] MCH 29.4 27.1 - 33.3 pg [facility] MCHC 31.2(L) 32.3 - 35.7 g/dL [facility] RDW CV 14.2 11.1 - 14.9 % [facility] RDW SD 47.5 35.7 - 48.1 fL [facility] NRBC abs 0.00 0.00 - 0.01 K/cumm [facility] Blood 04/27/2024 12:4 6 AM FIBERGLASS QUALITY TECHNICIAN 04/27/2024 12:46 AM FIBERGLASS QUALITY TECHNICIAN Horacio WISE LAB BLOOD ORDERABLES Final R esult Performing Organization Address City/[facility]/ZIP Co de Phone Number [facility] [address] Department of [employer] [place], [place] [phone] * POCT glucose (04/26/2024 8:17 PM FIBERGLASS QUALITY TECHNICIAN) Glucose, POC 125 70 - 199 mg/dL Comment: For Glucose values <35 mg/dl when Hematocrit is >60 mg/dl,the test may not accurately detect significant hypoglycemia,and testing in the Laboratory should be considered if clinically indicated. Blood 04/26/2024 8:17 PM FIBERGLASS QUALITY TECHNICIAN 04/26/2024 8:17 PM FIBERGLASS QUALITY TECHNICIAN us Jaime Colin MD LAB POCT ORDERABLES - DE VICE Final Result Performing Organization Address [facility] Co de Phone Number [facility] [address] [place] [address] * Transfuse RBC (04/26/2024 11:39 AM FIBERGLASS QUALITY TECHNICIAN) Blood Jazmin Tirado NP BLOOD TRANSFUSION ORDERABL ES Final Result Performing Organization Address [facility] Co de Phone Number [facility] [address] [facility] [place] [employer] [place] [address] * SC AN PROCEDURE PLACEHOLDER (04/26/2024 8:33 AM FIBERGLASS QUALITY TECHNICIAN) Tommie Garner MD - 04/26/2024 8:33 AM FIBERGLASS QUALITY TECHNICIAN Tommie Masters MD 04/26/2024 8:33 AM Peripheral [...] Masters MD ANESTHESIA ORDERABLES Final Result * SC AN ELECTIVE ENDOTRACHEAL AIRWAY, SC AN PROCEDURE PLACEHOLDER (04/26/2024 8:33 AM FIBERGLASS QUALITY TECHNICIAN) Tommie Garner MD - 04/26/2024 8:33 AM FIBERGLASS QUALITY TECHNICIAN Tommie Masters MD 04/26/2024 8:33 AM Airway [...] (fungal) culture Wound Chest (04/26/2024 8:29 AM FIBERGLASS QUALITY TECHNICIAN) Report Final Report: No fungus isolated Wound (Chest) 04/26/2024 8:2 9 AM FIBERGLASS QUALITY TECHNICIAN 04/26/2024 10:00 AM FIBERGLASS QUALITY TECHNICIAN Narrative [facility] - 05/26/2024 1:00 PM FIBERGLASS QUALITY TECHNICIAN Superficial Sternal Wound Mycology cultures are held for 4 weeks. us Jaime Coiln MD LAB MICROBIOLOGY - GENER AL ORDERABLES Final Result [facility] [address] [place] [address] * (ABNORMAL) Aerobic and anaerobic culture and gram stain Wound Chest (04/26/2024 8:29 AM FIBERGLASS QUALITY TECHNICIAN) Direct Specimen Exam Stain: No polymorphonuclear leukocytes seen. No organisms seen. Report Final Report: Very light growth Staphylococcus hominis Susceptibility not performed on this isolate (.) [facility] Organism STAPHYLOCOCCUS HOMINIS [facility] Wound (Chest) 04/26/2024 8:2 9 AM FIBERGLASS QUALITY TECHNICIAN 04/26/2024 10:00 AM FIBERGLASS QUALITY TECHNICIAN Narrative [facility] - 04/29/2024 8:03 AM FIBERGLASS QUALITY TECHNICIAN Superficial Sternal Wound Jaime Colin MD LAB MICROBIOLOGY - GENER AL ORDERABLES Final Result Performing Organization Address [facility] Co de Phone Number [facility] [address] [facility] [place] [employer] [place] [address] * Prepare RBC: 2 Units (04/26/2024 8:01 AM FIBERGLASS QUALITY TECHNICIAN) Product code [id number] [facility] Unit Number [id number] [facility] Product Blood Type OPOS [facility] Dispense Status RETURNED [facility] Product code [id number] Unit Number [id number] [facility] Product Blood Type OPOS [facility] Dispense Status RETURNED [facility] Blood 04/26/2024 8:01 AM FIBERGLASS QUALITY TECHNICIAN Narrative [facility] - 04/28/2024 7:24 AM FIBERGLASS QUALITY TECHNICIAN Specify Procedure:->chest closure Are special requirements needed? (All products are leukoreduced and CMV- safe)- >No Date required:-[id number] LRRBC # of [id number] Reasons:-Hold for procedure (specify procedure)} Jaime Colin MD BLOOD BANK PRODUCT ORDER GINNA Final Result Performing Organization Address [facility] de Phone Number [facility] [address] [place] [address] * Critical Care (04/26/2024 7:14 AM FIBERGLASS QUALITY TECHNICIAN) Narrative Surendra Jade MD - 04/26/2024 7:14 AM FIBERGLASS QUALITY TECHNICIAN Jazmin Tirado NP 04/26/2024 10:04 AM Critical Care Performed by: Jazmin Tirado NP Authorized by: Jazmin Tirado NP CRITICAL CARE: Team: [facility] CT Shift: AM Level of Billing: Subsequent [...] plan with the patient's team and other medical/tax credit leasing consultant staff. This time was in addition to and separate from care provided by other practitioners on this day of service. us Jazmin Tirado DIRECTOR SURFACE TRANSPORTATION IN CLINIC/BEDSIDE ORDERABL ES Final Result * XR Chest 1 View - Portable - in AM (04/26/2024 6:30 AM FIBERGLASS QUALITY TECHNICIAN) Anatomical Region Laterality Modality Body, Chest N/A Computed Radiogr aphy 04/26/2024 8:36 AM FIBERGLASS QUALITY TECHNICIAN Impressions 04/26/2024 8:36 AM FIBERGLASS QUALITY TECHNICIAN Comparison 04/25/2024 6:16 AM. Median sternotomy wires [...] Bronson Aragon M.D. Narrative 04/26/2024 8:36 AM FIBERGLASS QUALITY TECHNICIAN EXAMINATION: Chest 1 view Procedure Note Bronson [...] Prepare RBC: 1 Units (04/26/2024 5:30 AM FIBERGLASS QUALITY TECHNICIAN) Pathologist [facility] Product code [id number] Unit Number [id number] [facility] Product Blood Type OPOS [facility] Dispense Status PRESUMED TRANSFUSED [facility] Blood 04/26/2024 5:30 AM FIBERGLASS QUALITY TECHNICIAN Narrative [facility] - 04/27/2024 10:15 AM FIBERGLASS QUALITY TECHNICIAN Are special requirements needed? (All products are leukoreduced and CMV- safe)- >No Date required:-[id number] LRRBC # of [id number] Reasons:-Hgb <7 g/dL} Nav WISE BLOOD BANK PRODUCT ORDERA BLES Final Result [facility] [address] [place] [address] * (ABNORMAL) Hemoglobin and hematocrit (04/26/2024 4:53 AM FIBERGLASS QUALITY TECHNICIAN) [facility] Hgb 6.5(L) 13.0 - 17.5 g/dL Hct 21.2(L) 38.9 - 50.3 % [facility] Blood 04/26/2024 4:53 AM FIBERGLASS QUALITY TECHNICIAN 04/26/2024 5:04 AM FIBERGLASS QUALITY TECHNICIAN Nav WISE LAB BLOOD ORDERABLES Gail l Result [facility] [address] [place] [address] * eGFR (04/26/2024 1:34 AM FIBERGLASS QUALITY TECHNICIAN) [facility] eGFR 79 >=60 mL/min/1. 73 m2 Comment: [...] last reviewed 2021. Blood 04/26/2024 1:34 AM FIBERGLASS QUALITY TECHNICIAN 04/26/2024 1:57 AM FIBERGLASS QUALITY TECHNICIAN Nav WISE LAB BLOOD ORDERABLES Gail l Result [facility] [address] Department [employer] [place], [place] [id number] * Calcium, ionized (04/26/2024 1:34 AM FIBERGLASS QUALITY TECHNICIAN) Pathologist [facility] Calcium, Ionized 4.86 4.50 - 5.10 mg/dL Blood 04/26/2024 1:34 AM FIBERGLASS QUALITY TECHNICIAN 04/26/2024 1:39 AM FIBERGLASS QUALITY TECHNICIAN Nav WISE LAB BLOOD ORDERABLES Gail l Result [facility] [address] [place] [place] [address] * (ABNORMAL) CBC without differential (04/26/2024 1:34 AM FIBERGLASS QUALITY TECHNICIAN) WBC 8.9 3.8 - 9.9 K/cumm Hgb 6.8(L) 13.0 - 17.5 g/dL [facility] Hct 22.3(L) 38.9 - 50.3 % [facility] Plt 370 150 - 400 K/cumm [facility] MPV 9.7 9.1 - 12.3 fL [facility] RBC 2.34(L) 4.30 - 5.80 M/cumm [facility] MCV 95.3 81.3 - 96.4 fL [facility] MCH 29.1 27.1 - 33.3 pg [facility] MCHC 30.5(L) 32.3 - 35.7 g/dL [facility] RDW CV 14.4 11.1 - 14.9 % [facility] RDW SD 49.3(H) 35.7 - 48.1 fL [facility] NRBC abs 0.00 0.00 - 0.01 K/cumm [facility] Blood 04/26/2024 1:34 AM FIBERGLASS QUALITY TECHNICIAN 04/26/2024 1:57 AM FIBERGLASS QUALITY TECHNICIAN Horacio WISE LAB BLOOD ORDERABLES Final R esult Performing Organization Address [facility] Co de Phone Number [facility] [address] [facility] [employer] [place], [place] [phone] * Potassium (04/26/2024 1:34 AM FIBERGLASS QUALITY TECHNICIAN) Potassium, pl 4.3 3.3 - 4.9 mmol/L Blood 04/26/2024 1:34 AM FIBERGLASS QUALITY TECHNICIAN 04/26/2024 1:57 AM FIBERGLASS QUALITY TECHNICIAN Jazmin Tirado DIRECTOR SURFACE TRANSPORTATION LAB BLOOD ORDERABLES Final Result Performing Organization Address [facility] Co de Phone Number [facility] [address] [place] [address] * Magnesium (04/26/2024 1:34 AM FIBERGLASS QUALITY TECHNICIAN) Magnesium 2.0 1.4 - 2.5 mg/dL Blood 04/26/2024 1:34 AM FIBERGLASS QUALITY TECHNICIAN 04/26/2024 1:57 AM FIBERGLASS QUALITY TECHNICIAN Horacio WISE LAB BLOOD ORDERABLES Final R esult Performing Organization Address City/[facility] Co de Phone Number [facility] [address] Department [employer] [place], [place] [id number] * (ABNORMAL) Renal function panel (04/26/2024 1:34 AM FIBERGLASS QUALITY TECHNICIAN) Sodium 138 135 - 145 mmol/L Potassium, pl 4.3 3.3 - 4.9 mmol/L [facility] Chloride 106 97 - 110 mmol/L [facility] CO2 24 22 - 32 mmol/L [facility] Anion gap 8 2 - 15 mmol/L [facility] BUN 17 6 - 25 mg/dL [facility] Creatinine 1.07 0.80 - 1.30 mg/dL [facility] Glucose 108 70 - 199 mg/dL [facility] Comment: Interpretive Data Fasting glucose >/= 126 [...] 2022. Calcium 8.7 8.5 - 10.3 mg/dL [facility] Phosphorus, pl 4.9(H) 2.3 - 4.5 mg/dL [facility] Albumin 2.9(L) 3.5 - 5.0 g/dL [facility] Blood 04/26/2024 1:34 AM FIBERGLASS QUALITY TECHNICIAN 04/26/2024 1:57 AM FIBERGLASS QUALITY TECHNICIAN us Horacio WISE LAB BLOOD ORDERABLES Final R esult [facility] [address] [place] [address] * Critical Care (04/25/2024 6:37 PM FIBERGLASS QUALITY TECHNICIAN) Narrative Surendra Jade MD - 04/25/2024 6:37 PM FIBERGLASS QUALITY TECHNICIAN Nav Parker PA 04/26/2024 5:33 AM Critical Care Performed by: Nav Parker PA Authorized by: Nav Parker PA CRITICAL CARE: Team: [facility] CT Shift: PM Level of Billing: Subsequent [...] plan with the patient's team and other medical/tax credit leasing consultant staff. This time was in addition to and separate from care provided by other practitioners on this day of service. I spent time reviewing and interpreting data from bedside monitors, laboratory results, and imaging, I spent time discussing the management of this critically ill patient with consultants and the medical staff and I spent time documenting in the medical record Nav WISE IN CLINIC/BEDSIDE ORDERAB LES Final Result * POCT glucose (04/25/2024 8:16 AM FIBERGLASS QUALITY TECHNICIAN) Glucose, POC 134 70 - 199 mg/dL Comment: For Glucose values <35 mg/dl when Hematocrit is >60 mg/dl,the test may not accurately detect significant hypoglycemia,and testing in the Laboratory should be considered if clinically indicated. Blood 04/25/2024 8:16 AM FIBERGLASS QUALITY TECHNICIAN 04/25/2024 8:16 AM FIBERGLASS QUALITY TECHNICIAN Jaime Colin MD LAB POCT ORDERABLES - DE VICE Final Result [facility] [address] [place] [address] * XR Chest 1 View - Portable - in AM (04/25/2024 6:50 AM FIBERGLASS QUALITY TECHNICIAN) Anatomical Region Laterality Modality Body, Chest N/A Computed Radiogr aphy 04/25/2024 8:51 AM FIBERGLASS QUALITY TECHNICIAN Impressions 04/25/2024 8:51 AM FIBERGLASS QUALITY TECHNICIAN Median sternotomy. Mediastinal and bilateral thoracotomy tubes are present. Mild cardiomegaly with findings of coronary artery bypass grafting. There is bibasilar airspace opacities, likely unit support representative of subsegmental atelectasis. Trace bilateral pleural effusions. No pneumothorax. Electronically signed by: Kaushal Tsang M.D. Narrative 04/25/2024 8:51 AM FIBERGLASS QUALITY TECHNICIAN PORTABLE CHEST RADIOGRAPH INDICATION: pleural effusion COMPARISON: 04/24/2024 VIEWS: 1 Procedure Note Kaushal Tsang MD - 04/25/2024 PORTABLE CHEST RADIOGRAPH INDICATION: pleural effusion COMPARISON: 04/24/2024 VIEWS: 1 IMPRESSION: Median sternotomy. Mediastinal and bilateral thoracotomy tubes are present. Mild cardiomegaly with findings of coronary artery bypass grafting. There is bibasilar airspace opacities, likely unit support representative of subsegmental atelectasis. Trace bilateral pleural effusions. No pneumothorax. Electronically signed by: Kaushal Tsang M.D. us Horacio WISE IMG XR PROCEDURES Final Resu lt * Critical Care (04/25/2024 6:48 AM FIBERGLASS QUALITY TECHNICIAN) Narrative Surendra Jade MD - 04/25/2024 6:48 AM FIBERGLASS QUALITY TECHNICIAN Jazmin Tirado NP 04/25/2024 3:01 PM Critical Care Performed by: Jazmin Tirado NP Authorized by: Jazmin Tirado NP CRITICAL CARE: Team: [facility] CT Shift: AM Level of Billing: Critical [...] plan with the ICU team and other medical/tax credit leasing consultant staff, making frequent assessments and decisions [...] Final Result * eGFR (04/25/2024 6:28 AM FIBERGLASS QUALITY TECHNICIAN) eGFR >90 >=60 mL/min/1. 73 m2 Comment: [...] last reviewed 2021. Blood 04/25/2024 6:28 AM FIBERGLASS QUALITY TECHNICIAN 04/25/2024 6:52 AM FIBERGLASS QUALITY TECHNICIAN Nav WISE LAB BLOOD ORDERABLES Gail l Result Performing Organization Address [facility]/ZIP Co de Phone Number [place] [address] [employer] [place], [place] [phone] * Calcium, ionized (04/25/2024 6:28 AM FIBERGLASS QUALITY TECHNICIAN) Calcium, Ionized 4.80 4.50 - 5.10 mg/dL Blood 04/25/2024 6:28 AM FIBERGLASS QUALITY TECHNICIAN 04/25/2024 6:44 AM FIBERGLASS QUALITY TECHNICIAN Nav WISE LAB BLOOD ORDERABLES Gail l Result Performing Organization Address City/[facility]/ZIP Co de Phone Number [facility] [address] [place] [place] [address] * (ABNORMAL) CBC without differential (04/25/2024 6:28 AM FIBERGLASS QUALITY TECHNICIAN) WBC 12.5(H) 3.8 - 9.9 K/cumm Hgb 7.4(L) 13.0 - 17.5 g/dL [facility] Hct 24.2(L) 38.9 - 50.3 % [facility] Plt 368 150 - 400 K/cumm [facility] MPV 10.0 9.1 - 12.3 fL [facility] RBC 2.55(L) 4.30 - 5.80 M/cumm [facility] MCV 94.9 81.3 - 96.4 fL [facility] MCH 29.0 27.1 - 33.3 pg [facility] MCHC 30.6(L) 32.3 - 35.7 g/dL [facility] RDW CV 14.6 11.1 - 14.9 % [facility] RDW SD 48.4(H) 35.7 - 48.1 fL [facility] NRBC abs 0.00 0.00 - 0.01 K/cumm [facility] Blood 04/25/2024 6:28 AM FIBERGLASS QUALITY TECHNICIAN 04/25/2024 6:52 AM FIBERGLASS QUALITY TECHNICIAN Horacio [facility] BLOOD ORDERABLES Final R esult Performing Organization Address City/[facility] Co de Phone Number [facility] [address] [facility] [place] [place] [address] * Magnesium (04/25/2024 6:28 AM [employer] QUALITY TECHNICIAN) [facility] Magnesium 2.3 1.4 - 2.5 mg/dL Blood 04/25/2024 6:28 AM [employer] QUALITY TECHNICIAN 04/25/2024 6:52 AM [employer] QUALITY TECHNICIAN Horacio [facility] LAB BLOOD ORDERABLES Final R esult Performing Organization Address [facility] Co de Phone Number [facility] [address] [place] [address] * (ABNORMAL) Renal function panel (04/25/2024 6:28 AM [employer] QUALITY TECHNICIAN) Sodium 137 135 - 145 mmol/L Potassium, pl 4.7 3.3 - 4.9 mmol/L [facility] Chloride 102 97 - 110 mmol/L [facility] CO2 24 22 - 32 mmol/L [facility] Anion gap 11 2 - 15 mmol/L [facility] BUN 18 6 - 25 mg/dL [facility] Creatinine 0.93 0.80 - 1.30 mg/dL [facility] Glucose 122 70 - 199 mg/dL [facility] Comment: Interpretive Data Fasting glucose >/= 126 [...] 2022. Calcium 8.7 8.5 - 10.3 mg/dL [facility] Phosphorus, pl 5.1(H) 2.3 - 4.5 mg/dL [facility] Albumin 3.1(L) 3.5 - 5.0 g/dL [facility] Blood 04/25/2024 6:28 AM FIBERGLASS QUALITY TECHNICIAN 04/25/2024 6:52 AM FIBERGLASS QUALITY TECHNICIAN us Horacio WISE LAB BLOOD ORDERABLES Final R esult [facility] [address] Department of Laboratories [place], [place] [id number] * Critical Care (04/24/2024 10:07 PM FIBERGLASS QUALITY TECHNICIAN) Narrative Surendra Jade MD - 04/24/2024 10:07 PM FIBERGLASS QUALITY TECHNICIAN Nav Parker PA 04/25/2024 5:43 AM Critical Care Performed by: Nav Parker PA Authorized by: Nav Parker PA CRITICAL CARE: Team: [facility] CT Shift: PM Level of Billing: Subsequent [...] plan with the patient's team and other medical/tax credit leasing consultant staff. This time was in addition [...] Final Result * eGFR (04/24/2024 10:07 PM FIBERGLASS QUALITY TECHNICIAN) eGFR 86 >=60 mL/min/1. 73 m2 Comment: [...] reviewed 2021. Blood 04/24/2024 10:0 7 PM F[employer]ERGLASS QUALITY TECHNICIAN 04/24/2024 10:15 PM FIBERGLASS QUALITY TECHNICIAN us Nav WISE LAB BLOOD ORDERABLES Gail l Result [facility] [address] [place] [address] * Calcium, ionized (04/24/2024 10:07 PM FIBERGLASS QUALITY TECHNICIAN) Calcium, Ionized 4.92 4.50 - 5.10 mg/dL Blood 04/24/2024 10:0 7 PM FIBERGLASS QUALITY TECHNICIAN 04/24/2024 10:14 PM FIBERGLASS QUALITY TECHNICIAN Nav WISE LAB BLOOD ORDERABLES Gail l Result Performing Organization Address [facility] Co de Phone Number [facility] [address] [place] [address] * (ABNORMAL) aPTT (04/24/2024 10:07 PM FIBERGLASS QUALITY TECHNICIAN) Pathologist [facility] aPTT 27(L) 28 - 38 sec Comment: Interpretive Data Heparin therapeutic range: 66.0 - 100.0 seconds. Range based on correlation with therapeutic heparin activity range of 0.3 - 0.7 Units/mL. Current interpretive data was last revised on 2023. Blood 04/24/2024 10:0 7 PM FIBERGLASS QUALITY TECHNICIAN 04/24/2024 10:15 PM FIBERGLASS QUALITY TECHNICIAN Result [facility] Nav WISE LAB BLOOD ORDERABLES Gail l Result Performing Organization Address [facility] de Phone Number [facility] [address] [place] [address] * Protime-INR (04/24/2024 10:07 PM FIBERGLASS QUALITY TECHNICIAN) Pathologist [facility] PT 12.1 9.7 - 13.0 sec INR 1.12 0.90 - 1.20 [facility] Comment: Interpretive data Oral anticoagulant therapeutic ranges: Venous thromboembolism prophylaxis or treatment: 2.0-3.0 CARDIOLOGY Standard range: 2.0-3.0 High-intensity range: 2.5-3.5 Refer to indication-specific guidelines for appropriate target ranges for prosthetic heart valve replacement. Current interpretive data was last revised on 2019. Blood 04/24/2024 10:0 7 PM FIBERGLASS QUALITY TECHNICIAN 04/24/2024 10:15 PM FIBERGLASS QUALITY TECHNICIAN Nav WISE LAB BLOOD ORDERABLES Gail l Result Performing Organization Address [facility] Co de Phone Number [facility] [address] [place] [employer] [place] [address] * (ABNORMAL) CBC without differential (04/24/2024 10:07 PM FIBERGLASS QUALITY TECHNICIAN) Pathologist [facility] WBC 12.9(H) 3.8 - 9.9 K/cumm Hgb 7.5(L) 13.0 - 17.5 g/dL [facility] Hct 24.2(L) 38.9 - 50.3 % [facility] Plt 254 150 - 400 K/cumm [facility] MPV 10.7 9.1 - 12.3 fL [facility] RBC 2.50(L) 4.30 - 5.80 M/cumm [facility] MCV 96.8(H) 81.3 - 96.4 fL [facility] MCH 30.0 27.1 - 33.3 pg [facility] MCHC 31.0(L) 32.3 - 35.7 g/dL [facility] RDW CV 14.6 11.1 - 14.9 % [facility] RDW SD 49.5(H) 35.7 - 48.1 fL [facility] NRBC abs 0.00 0.00 - 0.01 K/cumm [facility] Blood 04/24/2024 10:0 7 PM FIBERGLASS QUALITY TECHNICIAN 04/24/2024 10:15 PM FIBERGLASS QUALITY TECHNICIAN Nav WISE LAB BLOOD ORDERABLES Gail l Result Performing Organization Address [facility]/ZIP Co de Phone Number [facility] [address] Department of [employer] [place], [place] [phone] * (ABNORMAL) Phosphorus (04/24/2024 10:07 PM FIBERGLASS QUALITY TECHNICIAN) Phosphorus, pl 5.1(H) 2.3 - 4.5 mg/dL Blood 04/24/2024 10:0 7 PM FIBERGLASS QUALITY TECHNICIAN 04/24/2024 10:15 PM FIBERGLASS QUALITY TECHNICIAN Nav WISE LAB BLOOD ORDERABLES Gail l Result Performing Organization Address City/[facility]/ZIP Co de Phone Number [facility] [address] [facility] [place] [employer] [place] [address] * Magnesium (04/24/2024 10:07 PM FIBERGLASS QUALITY TECHNICIAN) Pathologist [facility] Magnesium 1.9 1.4 - 2.5 mg/dL Blood 04/24/2024 10:0 7 PM FIBERGLASS QUALITY TECHNICIAN 04/24/2024 10:15 PM FIBERGLASS QUALITY TECHNICIAN Nav WISE LAB BLOOD ORDERABLES Gail l Result Performing Organization Address [facility] de Phone Number [facility] [address] [facility] [place] [employer] [place] [address] * (ABNORMAL) Basic metabolic panel (04/24/2024 10:07 PM FIBERGLASS QUALITY TECHNICIAN) Pathologist [facility] Sodium 134(L) 135 - 145 mmol/L Potassium, pl 5.2(H) 3.3 - 4.9 mmol/L [facility] Comment:Hemolyzed; potassium value may be falsely elevated by as much as 0.3 - 0.5 mmol/L. Suggest redraw and reanalysis Chloride 99 97 - 110 mmol/L [facility] CO2 24 22 - 32 mmol/L [facility] Anion gap 11 2 - 15 mmol/L [facility] BUN 19 6 - 25 mg/dL [facility] Creatinine 1.00 0.80 - 1.30 mg/dL [facility] Glucose 111 70 - 199 mg/dL [facility] Comment: Interpretive Data Fasting glucose >/= 126 [...] 2022. Calcium 9.0 8.5 - 10.3 mg/dL [facility] Blood 04/24/2024 10:0 7 PM FIBERGLASS QUALITY TECHNICIAN 04/24/2024 10:15 PM FIBERGLASS QUALITY TECHNICIAN Nav [facility]E LAB BLOOD ORDERABLES Gail l Result Performing Organization Address [facility] Co de Phone Number [facility] [address] Department of [employer] [place], [place] [phone] * Mycology (fungal) culture Wound Chest (04/24/2024 8:51 PM FIBERGLASS QUALITY TECHNICIAN) Report Final Report: No fungus isolated Wound (Chest) 04/24/2024 8:5 1 PM FIBERGLASS QUALITY TECHNICIAN 04/24/2024 8:52 PM FIBERGLASS QUALITY TECHNICIAN Narrative [facility] - 05/23/2024 1:00 PM FIBERGLASS QUALITY TECHNICIAN Superficial wound Mycology cultures are held for 4 weeks. Jaime Colin MD LAB MICROBIOLOGY - GENER AL ORDERABLES Final Result Performing Organization Address [facility] Co de Phone Number [facility] [address] [place] [place] [address] * Mycobacteriology (AFB) culture and acid-fast stain Wound Chest (04/24/2024 8:51 PM FIBERGLASS QUALITY TECHNICIAN) Direct Specimen Exam Stain: Concentrated smear: No Acid Fast Bacillus Seen Report Final Report: No Acid Fast Bacilli isolated [facility] Wound (Chest) 04/24/2024 8:5 1 PM FIBERGLASS QUALITY TECHNICIAN 04/24/2024 8:52 PM FIBERGLASS QUALITY TECHNICIAN Narrative [facility] - 06/20/2024 1:00 PM CDT Superficial wound Mycobacteriology (AFB) cultures are held for 8 weeks. Jaime Colin MD LAB MICROBIOLOGY - GENER AL ORDERABLES Final Result Performing Organization Address [facility] Co de Phone Number [facility] [address] [facility] [place] [employer] [place] [address] * (ABNORMAL) Aerobic and anaerobic culture and gram stain Wound Chest (04/24/2024 8:51 PM FIBERGLASS QUALITY TECHNICIAN) Direct Specimen Exam Stain: Many polymorphonuclear leukocytes seen. No organisms seen. Report Final Report: Light growth of: Staphylococcus epidermidis Susceptibility not performed on this isolate (.) [facility] Organism STAPHYLOCOCCUS EPIDERMIDIS [facility] Wound (Chest) 04/24/2024 8:5 1 PM FIBERGLASS QUALITY TECHNICIAN 04/24/2024 8:52 PM FIBERGLASS QUALITY TECHNICIAN Narrative [facility] - 04/28/2024 10:41 AM FIBERGLASS QUALITY TECHNICIAN Superficial wound Jaime Colin MD LAB MICROBIOLOGY - GENER AL ORDERABLES Final Result Performing Organization Address [facility] de Phone Number [facility] [address] [place] [place] [address] * XR Chest 1 View - Portable (04/24/2024 8:22 PM FIBERGLASS QUALITY TECHNICIAN) Anatomical Region Laterality Modality Body, Chest N/A Computed Radiogr aphy 04/25/2024 12:0 2 PM FIBERGLASS QUALITY TECHNICIAN Impressions 04/25/2024 12:02 PM FIBERGLASS QUALITY TECHNICIAN Comparison to the 4:53 PM. There are new median sternotomy wires and thoracic drains after cardiac surgery. Left basilar atelectasis and new opacities in the right lung are noted. The heart size is unchanged. There may be a tiny left pleural effusion. No pneumothorax is identified. Electronically signed by: Jake Brice M.D. Narrative 04/25/2024 12:02 PM FIBERGLASS QUALITY TECHNICIAN EXAMINATION: 1 view chest radiograph Procedure Note [...] IMG XR PROCEDURES Final R esult * SC AN PROCEDURE PLACEHOLDER (04/24/2024 6:30 PM FIBERGLASS QUALITY TECHNICIAN) Tommie Garner MD - 04/24/2024 6:30 PM FIBERGLASS QUALITY TECHNICIAN Tommie Masters MD 04/24/2024 6:30 PM Peripheral IV Catheter Patient location: OR Staff: Placed by: Anesthesiologist: Tmomie Masters MD Preprocedure prep: Prep solution: alcohol PPE: gloves and provider hat/mask PIV line: Laterality: left Site: antecubital Catheter size: 18 g Technique: direct visualization Procedure details: good blood return and occlusive dressing applied Assessment: Events: patient tolerated procedure well with no complications Additional comments: Ultrasound assist Tommie Masters MD ANESTHESIA ORDERABLES Final Result * SC AN ELECTIVE ENDOTRACHEAL AIRWAY, SC AN PROCEDURE PLACEHOLDER (04/24/2024 6:28 PM FIBERGLASS QUALITY TECHNICIAN) Tommie Garner MD - 04/24/2024 6:28 PM FIBERGLASS QUALITY TECHNICIAN Tommie Masters MD 04/24/2024 6:29 PM Airway [...] Final Result * eGFR (04/24/2024 4:58 PM FIBERGLASS QUALITY TECHNICIAN) eGFR 88 >=60 mL/min/1. 73 m2 Comment: [...] last reviewed 2021. Blood 04/24/2024 4:58 PM FIBERGLASS QUALITY TECHNICIAN 04/24/2024 5:06 PM FIBERGLASS QUALITY TECHNICIAN us Davy Hauser MD LAB BLOOD ORDERABLES Final R esult [facility] [address] [place] [address] * (ABNORMAL) Differential, auto (04/24/2024 4:58 PM FIBERGLASS QUALITY TECHNICIAN) Neutrophil abs 8.7(H) 1.5 - 6.5 K/cumm Imm gran abs 0.2(H) 0.0 - 0.1 K/cumm [facility] Lymphocyte abs 1.4 0.8 - 3.3 K/cumm [facility] Monocyte abs 1.1(H) 0.2 - 0.8 K/cumm [facility] Eosinophil abs 0.4 0.0 - 0.5 K/cumm [facility] Basophil abs 0.1 0.0 - 0.1 K/cumm [facility] Neutrophil pct 73.6 % [facility] Comment: Interpretive Data Percent cell count reference ranges are not reported, since discordance with absolute values may lead to misinterpretation of CBC data. Current Interpretive Data was last revised on 2017. Imm gran pct 1.3 % [facility] Comment: Interpretive Data Percent cell count reference ranges are not reported, since discordance with absolute values may lead to misinterpretation of CBC data. Current Interpretive Data was last revised on 2017. Lymphocyte pct 11.6 % [facility] Comment: Interpretive Data Percent cell count reference ranges are not reported, since discordance with absolute values may lead to misinterpretation of CBC data. Current Interpretive Data was last revised on 2017. Monocyte pct 9.4 % [facility] Comment: Interpretive Data Percent cell count reference ranges are not reported, since discordance with absolute values may lead to misinterpretation of CBC data. Current Interpretive Data was last revised on 2017. Eosinophil pct 3.7 % [facility] Comment: Interpretive Data Percent cell count reference ranges are not reported, since discordance with absolute values may lead to misinterpretation of CBC data. Current Interpretive Data was last revised on 2017. Basophil pct 0.4 % [facility] Comment: Interpretive Data Percent cell count reference ranges are not reported, since discordance with absolute values may lead to misinterpretation of CBC data. Current Interpretive Data was last revised on 2017. Blood 04/24/2024 4:58 PM FIBERGLASS QUALITY TECHNICIAN 04/24/2024 5:06 PM FIBERGLASS QUALITY TECHNICIAN us Davy Hauser MD LAB BLOOD ORDERABLES Final R esult [facility] [address] Department of Laboratories [place], [place] [id number] * (ABNORMAL) CBC with auto differential (04/24/2024 4:58 PM FIBERGLASS QUALITY TECHNICIAN) WBC 11.8(H) 3.8 - 9.9 K/cumm Hgb 7.9(L) 13.0 - 17.5 g/dL [facility] Hct 25.5(L) 38.9 - 50.3 % [facility] Plt 398 150 - 400 K/cumm [facility] MPV 9.7 9.1 - 12.3 fL [facility] RBC 2.64(L) 4.30 - 5.80 M/cumm [facility] MCV 96.6(H) 81.3 - 96.4 fL [facility] MCH 29.9 27.1 - 33.3 pg [facility] MCHC 31.0(L) 32.3 - 35.7 g/dL [facility] RDW CV 14.5 11.1 - 14.9 % [facility] RDW SD 48.6(H) 35.7 - 48.1 fL [facility] NRBC abs 0.00 0.00 - 0.01 K/cumm [facility] Blood 04/24/2024 4:58 PM FIBERGLASS QUALITY TECHNICIAN 04/24/2024 5:06 PM FIBERGLASS QUALITY TECHNICIAN us Davy Hauser MD LAB BLOOD ORDERABLES Final R esult Performing Organization Address City/[facility]/ZIP Co de Phone Number [facility] [address] [employer] [place], [place] [phone] * Type and screen (04/24/2024 4:58 PM FIBERGLASS QUALITY TECHNICIAN) ABO Rh O Positive Arvind, indirect Negative [facility] Blood 04/24/2024 4:58 PM FIBERGLASS QUALITY TECHNICIAN 04/24/2024 5:10 PM FIBERGLASS QUALITY TECHNICIAN us Melissa Erickson NP LAB BLOOD BANK TEST ORDER GINNA Final Result Performing Organization Address City/[facility]/ZIP Co de Phone Number [facility] [address] [facility] [place] [employer] [place] [address] * (ABNORMAL) Hepatic function panel (04/24/2024 4:58 PM FIBERGLASS QUALITY TECHNICIAN) Bilirubin, total 0.4 0.1 - 1.2 mg/dL Bilirubin, direct 0.2 0.1 - 0.3 mg/dL [facility] Protein, pl 7.4 6.5 - 8.5 g/dL [facility] Albumin 3.4(L) 3.5 - 5.0 g/dL [facility] Alk phos 39(L) 40 - 130 Units/L [facility] ALT 29 7 - 55 Units/L [facility] AST 27 10 - 50 Units/L [facility] Blood 04/24/2024 4:58 PM FIBERGLASS QUALITY TECHNICIAN 04/24/2024 5:06 PM FIBERGLASS QUALITY TECHNICIAN us Davy Hauser MD LAB BLOOD ORDERABLES Final R esult [facility] [address] [place] [address] * (ABNORMAL) Basic metabolic panel (04/24/2024 4:58 PM FIBERGLASS QUALITY TECHNICIAN) [facility] Sodium 132(L) 135 - 145 mmol/L Potassium, pl 4.6 3.3 - 4.9 mmol/L [facility] Chloride 92(L) 97 - 110 mmol/L [facility] CO2 25 22 - 32 mmol/L [facility] Anion gap 15 2 - 15 mmol/L [facility] BUN 21 6 - 25 mg/dL [facility] Creatinine 0.98 0.80 - 1.30 mg/dL [facility] Glucose 103 70 - 199 mg/dL [facility] Comment: Interpretive Data Fasting glucose >/= 126 [...] 2022. Calcium 9.3 8.5 - 10.3 mg/dL [facility] Blood 04/24/2024 4:58 PM FIBERGLASS QUALITY TECHNICIAN 04/24/2024 5:06 PM FIBERGLASS QUALITY TECHNICIAN us Davy Hauser MD LAB BLOOD ORDERABLES Final R esult [facility] [address] Department [place] [address] * XR Chest 1 Vw (04/24/2024 4:56 PM FIBERGLASS QUALITY TECHNICIAN) Anatomical Region Laterality Modality Body, Chest N/A Computed Radiogr aphy 04/24/2024 5:09 PM FIBERGLASS QUALITY TECHNICIAN Impressions 04/24/2024 5:09 PM FIBERGLASS QUALITY TECHNICIAN Left pleural effusion with basal atelectasis, similar to prior study. Electronically signed by: Joe Martinez M.D. Narrative 04/24/2024 5:09 PM FIBERGLASS QUALITY TECHNICIAN EXAMINATION: XR CHEST 1 VIEW HISTORY: Severe [...] Prepare RBC: 1 Units (04/24/2024 4:52 PM FIBERGLASS QUALITY TECHNICIAN) Product code [id number] Unit Number [id number] 5-8 [facility] Product Blood Type OPOS [facility] Dispense Status RETURNED [facility] Blood 04/24/2024 4:52 PM FIBERGLASS QUALITY TECHNICIAN Narrative [facility] - 04/28/2024 7:24 AM FIBERGLASS QUALITY TECHNICIAN Specify Procedure:->cardiac surgery Are special requirements needed? (All products are leukoreduced and CMV- safe)- >No Date required:-[id number] LRRBC # of [id number] Reasons:-Hold for procedure (specify procedure)} Melissa Erickson NP BLOOD BANK PRODUCT ORDERA BLES Final Result [facility] [address] [place] [address] * XR Chest 1 View - Portable - in AM (04/21/2024 6:06 AM FIBERGLASS QUALITY TECHNICIAN) Anatomical Region Laterality Modality Body, Chest N/A Computed Radiogr aphy 04/21/2024 8:54 AM FIBERGLASS QUALITY TECHNICIAN Impressions 04/21/2024 8:54 AM FIBERGLASS QUALITY TECHNICIAN A right internal jugular central venous catheter terminates at the superior vena cava. Median sternotomy wires are intact and aligned. The lung volumes are small bilaterally with moderate bibasilar atelectasis and a small left pleural effusion, not significantly changed. No pneumothorax is identified. The cardiomediastinal silhouette is unchanged. Electronically signed by: Cj Leger M.D. Narrative 04/21/2024 8:54 AM FIBERGLASS QUALITY TECHNICIAN EXAMINATION: XR CHEST 1 VIEW COMPARISON: 04/20/2024 [...] signed by: Cj Leger M.D. Georgia Reddy DIRECTOR SURFACE TRANSPORTATION IMG XR PROCEDURES Final Result * eGFR (04/21/2024 3:36 AM FIBERGLASS QUALITY TECHNICIAN) [facility] eGFR 88 >=60 mL/min/1. 73 m2 Comment: [...] last reviewed 2021. Blood 04/21/2024 3:36 AM FIBERGLASS QUALITY TECHNICIAN 04/21/2024 3:36 AM FIBERGLASS QUALITY TECHNICIAN Georgia Reddy NP LAB BLOOD ORDERABLES Fin al Result [facility] [address] Department [place] [address] * (ABNORMAL) CBC without differential (04/21/2024 3:36 AM FIBERGLASS QUALITY TECHNICIAN) [facility] WBC 7.8 3.8 - 9.9 K/cumm Hgb 7.0(L) 13.0 - 17.5 g/dL [facility] Hct 22.6(L) 38.9 - 50.3 % [facility] Plt 214 150 - 400 K/cumm [facility] MPV 10.8 9.1 - 12.3 fL [facility] RBC 2.38(L) 4.30 - 5.80 M/cumm [facility] MCV 95.0 81.3 - 96.4 fL [facility] MCH 29.4 27.1 - 33.3 pg [facility] MCHC 31.0(L) 32.3 - 35.7 g/dL [facility] RDW CV 13.8 11.1 - 14.9 % [facility] RDW SD 46.0 35.7 - 48.1 fL [facility] NRBC abs 0.02(H) 0.00 - 0.01 K/cumm [facility] Blood 04/21/2024 3:36 AM FIBERGLASS QUALITY TECHNICIAN 04/21/2024 3:36 AM FIBERGLASS QUALITY TECHNICIAN Georgia Reddy DIRECTOR SURFACE TRANSPORTATION LAB BLOOD ORDERABLES Fin al Result Performing Organization Address [facility]/ZIP Co de Phone Number [facility] [address] [place] [employer] [place] [address] * Magnesium (04/21/2024 3:36 AM FIBERGLASS QUALITY TECHNICIAN) [facility] Magnesium 1.9 1.4 - 2.5 mg/dL Blood 04/21/2024 3:36 AM FIBERGLASS QUALITY TECHNICIAN 04/21/2024 3:36 AM FIBERGLASS QUALITY TECHNICIAN Georgia Reddy DIRECTOR SURFACE TRANSPORTATION LAB BLOOD ORDERABLES Fin al Result [facility] [address] [facility] [place] [address] * (ABNORMAL) Renal function panel (04/21/2024 3:36 AM FIBERGLASS QUALITY TECHNICIAN) [facility] Sodium 141 135 - 145 mmol/L Potassium, pl 4.0 3.3 - 4.9 mmol/L [facility] Chloride 103 97 - 110 mmol/L [facility] CO2 28 22 - 32 mmol/L [facility] Anion gap 10 2 - 15 mmol/L [facility] BUN 27(H) 6 - 25 mg/dL [facility] Creatinine 0.99 0.80 - 1.30 mg/dL [facility] Glucose 114 70 - 199 mg/dL [facility] Comment: Interpretive Data Fasting glucose >/= 126 [...] 2022. Calcium 9.1 8.5 - 10.3 mg/dL [facility] Phosphorus, pl 4.2 2.3 - 4.5 mg/dL [facility] Albumin 3.3(L) 3.5 - 5.0 g/dL [facility] Blood 04/21/2024 3:36 AM FIBERGLASS QUALITY TECHNICIAN 04/21/2024 3:36 AM FIBERGLASS QUALITY TECHNICIAN us Georgia Reddy NP LAB BLOOD ORDERABLES Fin al Result [facility] [address] Department [place] [address] * XR Chest 1 View - Portable - in AM (04/20/2024 5:59 AM FIBERGLASS QUALITY TECHNICIAN) Anatomical Region Laterality Modality Body, Chest N/A Computed Radiogr aphy 04/20/2024 9:03 AM FIBERGLASS QUALITY TECHNICIAN Impressions 04/20/2024 12:27 PM FIBERGLASS QUALITY TECHNICIAN Right internal jugular central venous catheter tip [...] Andrea Godinez M.D. Narrative 04/20/2024 12:27 PM FIBERGLASS QUALITY TECHNICIAN EXAMINATION: XR CHEST 1 VIEW HISTORY: pleural [...] signed by: Andrea Godinez M.D. Georgia Reddy DIRECTOR SURFACE TRANSPORTATION IMG XR PROCEDURES Final Result * eGFR (04/20/2024 4:40 AM FIBERGLASS QUALITY TECHNICIAN) eGFR 89 >=60 mL/min/1. 73 m2 Comment: [...] last reviewed 2021. Blood 04/20/2024 4:40 AM FIBERGLASS QUALITY TECHNICIAN 04/20/2024 4:40 AM FIBERGLASS QUALITY TECHNICIAN Georgia Reddy DIRECTOR SURFACE TRANSPORTATION LAB BLOOD ORDERABLES Fin al Result Performing Organization Address [facility] Co de Phone Number [facility] [address] Department [employer] [place], [place] [id number] * (ABNORMAL) CBC without differential (04/20/2024 4:40 AM FIBERGLASS QUALITY TECHNICIAN) Pathologist [facility] WBC 7.3 3.8 - 9.9 K/cumm Hgb 6.8(L) 13.0 - 17.5 g/dL [facility] Hct 20.8(L) 38.9 - 50.3 % [facility] Plt 159 150 - 400 K/cumm [facility] MPV 11.1 9.1 - 12.3 fL [facility] RBC 2.22(L) 4.30 - 5.80 M/cumm [facility] MCV 93.7 81.3 - 96.4 fL [facility] MCH 30.6 27.1 - 33.3 pg [facility] MCHC 32.7 32.3 - 35.7 g/dL [facility] RDW CV 13.7 11.1 - 14.9 % [facility] RDW SD 46.3 35.7 - 48.1 fL [facility] NRBC abs 0.00 0.00 - 0.01 K/cumm [facility] Blood 04/20/2024 4:40 AM FIBERGLASS QUALITY TECHNICIAN 04/20/2024 4:40 AM FIBERGLASS QUALITY TECHNICIAN Georgia Reddy DIRECTOR SURFACE TRANSPORTATION LAB BLOOD ORDERABLES Fin al Result Performing Organization Address [facility] Co de Phone Number [facility] [address] [place] [employer] [place] [address] * Magnesium (04/20/2024 4:40 AM F[employer]ER[employer] QUALITY TECHNICIAN) Pathologist [facility] Magnesium 2.0 1.4 - 2.5 mg/dL Blood 04/20/2024 4:40 AM [employer] QUALITY TECHNICIAN 04/20/2024 4:40 AM [employer] QUALITY TECHNICIAN Georgia Reddy DIRECTOR SURFACE TRANSPORTATION LAB BLOOD ORDERABLES Fin al Result [facility] [address] Department [place] [address] * (ABNORMAL) Renal function panel (04/20/2024 4:40 AM [employer]ER[employer] QUALITY TECHNICIAN) Pathologist [facility] Sodium 140 135 - 145 mmol/L Potassium, pl 3.8 3.3 - 4.9 mmol/L [facility] Chloride 104 97 - 110 mmol/L [facility] CO2 26 22 - 32 mmol/L [facility] Anion gap 10 2 - 15 mmol/L [facility] BUN 32(H) 6 - 25 mg/dL [facility] Creatinine 0.98 0.80 - 1.30 mg/dL [facility] Glucose 111 70 - 199 mg/dL [facility] Comment: Interpretive Data Fasting glucose >/= 126 [...] 2022. Calcium 8.8 8.5 - 10.3 mg/dL [facility] [facility] Phosphorus, pl 3.9 2.3 - 4.5 mg/dL [facility] Albumin 3.0(L) 3.5 - 5.0 g/dL [facility] Blood 04/20/2024 4:40 AM FIBERGLASS QUALITY TECHNICIAN 04/20/2024 4:40 AM FIBERGLASS QUALITY TECHNICIAN Georgia Reddy DIRECTOR SURFACE TRANSPORTATION LAB BLOOD ORDERABLES Fin al Result [facility] [address] [place] [address] * XR Chest 1 View - Portable - in AM (04/19/2024 5:58 AM FIBERGLASS QUALITY TECHNICIAN) Anatomical Region Laterality Modality Body, Chest N/A Computed Radiogr aphy 04/19/2024 8:34 AM FIBERGLASS QUALITY TECHNICIAN Impressions 04/19/2024 8:34 AM FIBERGLASS QUALITY TECHNICIAN Comparison 04/18/2024 6:09 AM. Median sternotomy wires are aligned and intact. Right internal jugular central venous catheter tip overlies the superior vena cava. Moderate left retrocardiac opacity compatible with atelectasis and small left pleural effusion again seen. Mild right base atelectasis again noted. No pneumothorax seen. Cardiomediastinal silhouette stable. Electronically signed by: Bronson Aragon M.D. Narrative 04/19/2024 8:34 AM FIBERGLASS QUALITY TECHNICIAN EXAMINATION: Chest 1 view Procedure Note Bronson [...] Electronically signed by: Bronson Aragon M.D. us Georgia Reddy DIRECTOR SURFACE TRANSPORTATION IMG XR PROCEDURES Final Result * eGFR (04/19/2024 12:27 AM FIBERGLASS QUALITY TECHNICIAN) eGFR 78 >=60 mL/min/1. 73 m2 Comment: [...] reviewed 2021. Blood 04/19/2024 12:2 7 AM FIBERGLASS QUALITY TECHNICIAN 04/19/2024 1:52 AM FIBERGLASS QUALITY TECHNICIAN Georgia Reddy NP LAB BLOOD ORDERABLES Fin al Result [facility] [address] [place] [address] * (ABNORMAL) CBC without differential (04/19/2024 12:27 AM FIBERGLASS QUALITY TECHNICIAN) WBC 10.1(H) 3.8 - 9.9 K/cumm Hgb 7.2(L) 13.0 - 17.5 g/dL [facility] Hct 22.4(L) 38.9 - 50.3 % [facility] Plt 137(L) 150 - 400 K/cumm [facility] MPV 11.5 9.1 - 12.3 fL [facility] RBC 2.38(L) 4.30 - 5.80 M/cumm [facility] MCV 94.1 81.3 - 96.4 fL [facility] MCH 30.3 27.1 - 33.3 pg [facility] MCHC 32.1(L) 32.3 - 35.7 g/dL [facility] RDW CV 14.4 11.1 - 14.9 % [facility] RDW SD 48.4(H) 35.7 - 48.1 fL [facility] NRBC abs 0.02(H) 0.00 - 0.01 K/cumm [facility] Blood 04/19/2024 12:2 7 AM FIBERGLASS QUALITY TECHNICIAN 04/19/2024 1:52 AM FIBERGLASS QUALITY TECHNICIAN Georgia Reddy DIRECTOR SURFACE TRANSPORTATION LAB BLOOD ORDERABLES Fin al Result Performing Organization Address [facility] Co de Phone Number [facility] [address] [facility] [place] [employer] [place] [address] * Type and screen (04/19/2024 12:27 AM FIBERGLASS QUALITY TECHNICIAN) Pathologist [facility] Arvind, indirect Negative ABO Rh O Positive [facility] Blood 04/19/2024 12:2 7 AM FIBERGLASS QUALITY TECHNICIAN 04/19/2024 12:57 AM FIBERGLASS QUALITY TECHNICIAN Narrative [facility] - 04/19/2024 1:52 AM FIBERGLASS QUALITY TECHNICIAN Has the patient had Daratumumab or Isatuximab in the past 6 months?->Unknown Georgia Reddy DIRECTOR SURFACE TRANSPORTATION LAB BLOOD BANK TEST ORDE RABLES Final Result Performing Organization Address [facility] Co de Phone Number [facility] [address] [facility] [employer] [place], [place] [id number] * Magnesium (04/19/2024 12:27 AM FIBERGLASS QUALITY TECHNICIAN) [facility] Magnesium 2.0 1.4 - 2.5 mg/dL Blood 04/19/2024 12:2 7 AM FIBERGLASS QUALITY TECHNICIAN 04/19/2024 1:52 AM FIBERGLASS QUALITY TECHNICIAN Georgia Reddy DIRECTOR SURFACE TRANSPORTATION LAB BLOOD ORDERABLES Fin al Result Performing Organization Address City/[facility]/ZIP Co de Phone Number [facility] [address] [facility] [employer] [place], [place] [phone] * (ABNORMAL) Renal function panel (04/19/2024 12:27 AM FIBERGLASS QUALITY TECHNICIAN) [facility] Sodium 142 135 - 145 mmol/L Potassium, pl 4.0 3.3 - 4.9 mmol/L [facility] Chloride 105 97 - 110 mmol/L [facility] CO2 25 22 - 32 mmol/L [facility] Anion gap 12 2 - 15 mmol/L [facility] BUN 34(H) 6 - 25 mg/dL [facility] Creatinine 1.09 0.80 - 1.30 mg/dL [facility] Glucose 111 70 - 199 mg/dL [facility] Comment: Interpretive Data Fasting glucose >/= 126 [...] 2022. Calcium 9.0 8.5 - 10.3 mg/dL [facility] Phosphorus, pl 4.8(H) 2.3 - 4.5 mg/dL [facility] Albumin 3.2(L) 3.5 - 5.0 g/dL [facility] Blood 04/19/2024 12:2 7 AM FIBERGLASS QUALITY TECHNICIAN 04/19/2024 1:52 AM FIBERGLASS QUALITY TECHNICIAN us Georgia Reddy NP LAB BLOOD ORDERABLES Fin al Result [facility] [address] Department [place] [address] * POCT glucose (04/18/2024 7:49 PM FIBERGLASS QUALITY TECHNICIAN) [facility] Signature Glucose, POC 112 70 - 199 mg/dL Comment: For Glucose values <35 mg/dl when Hematocrit is >60 mg/dl,the test may not accurately detect significant hypoglycemia,and testing in the Laboratory should be considered if clinically indicated. Blood 04/18/2024 7:49 PM FIBERGLASS QUALITY TECHNICIAN 04/18/2024 7:49 PM FIBERGLASS QUALITY TECHNICIAN us Jaime Colin MD LAB POCT ORDERABLES - DE VICE Final Result Performing Organization Address [facility] Phone Number [facility] [address] [facility] [employer] [place], [place] [phone] * POCT glucose (04/18/2024 4:44 PM FIBERGLASS QUALITY TECHNICIAN) Glucose, POC 120 70 - 199 mg/dL Comment: For Glucose values <35 mg/dl when Hematocrit is >60 mg/dl,the test may not accurately detect significant hypoglycemia,and testing in the Laboratory should be considered if clinically indicated. Blood 04/18/2024 4:44 PM FIBERGLASS QUALITY TECHNICIAN 04/18/2024 4:44 PM FIBERGLASS QUALITY TECHNICIAN Jaime Colin MD LAB POCT ORDERABLES - DE VICE Final Result Performing Organization Address [facility] Phone Number [facility] [address] [facility] [place] [employer] [place] [address] * POCT glucose (04/18/2024 12:11 PM FIBERGLASS QUALITY TECHNICIAN) Glucose, POC 158 70 - 199 mg/dL Comment: For Glucose values <35 mg/dl when Hematocrit is >60 mg/dl,the test may not accurately detect significant hypoglycemia,and testing in the Laboratory should be considered if clinically indicated. Blood 04/18/2024 12:1 1 PM FIBERGLASS QUALITY TECHNICIAN 04/18/2024 12:11 PM FIBERGLASS QUALITY TECHNICIAN Jaime Colin MD LAB POCT ORDERABLES - DE VICE Final Result Performing Organization Address [facility] Phone Number [facility] [address] [facility] [place] [employer] [place] [address] * XR Chest 1 View - Portable - in AM (04/18/2024 6:20 AM FIBERGLASS QUALITY TECHNICIAN) Anatomical Region Laterality Modality Body, Chest N/A Computed Radiogr aphy 04/18/2024 7:05 AM FIBERGLASS QUALITY TECHNICIAN Impressions 04/18/2024 7:05 AM FIBERGLASS QUALITY TECHNICIAN Median sternotomy wires are unchanged. Right internal jugular central venous catheter tip projects over the superior vena cava. Moderate left basilar and mild right basilar atelectasis, not significantly changed. Small left pleural effusion is stable. No pneumothorax. Heart and mediastinal contours are stable. Electronically signed by: Carlos Tang MD, PHD Narrative 04/18/2024 7:05 AM FIBERGLASS QUALITY TECHNICIAN EXAMINATION: XR CHEST 1 VIEW HISTORY: pleural [...] by: Carlos Tang MD, PHD Georgia Reddy DIRECTOR SURFACE TRANSPORTATION IMG XR PROCEDURES Final Result * POCT glucose (04/18/2024 5:55 AM FIBERGLASS QUALITY TECHNICIAN) Glucose, POC 133 70 - 199 mg/dL Comment: For Glucose values <35 mg/dl when Hematocrit is >60 mg/dl,the test may not accurately detect significant hypoglycemia,and testing in the Laboratory should be considered if clinically indicated. Blood 04/18/2024 5:55 AM FIBERGLASS QUALITY TECHNICIAN 04/18/2024 5:55 AM FIBERGLASS QUALITY TECHNICIAN us Jaime Colin MD LAB POCT ORDERABLES - DE VICE Final Result [facility] [address] Department [place] [address] * POCT glucose (04/18/2024 3:11 AM FIBERGLASS QUALITY TECHNICIAN) Glucose, POC 121 70 - 199 mg/dL Comment: For Glucose values <35 mg/dl when Hematocrit is >60 mg/dl,the test may not accurately detect significant hypoglycemia,and testing in the Laboratory should be considered if clinically indicated. Blood 04/18/2024 3:11 AM FIBERGLASS QUALITY TECHNICIAN 04/18/2024 3:11 AM FIBERGLASS QUALITY TECHNICIAN Jaime Colin MD LAB POCT ORDERABLES - DE VICE Final Result Performing Organization Address [facility] Co de Phone Number [facility] [address] [place] [address] * eGFR (04/18/2024 1:22 AM FIBERGLASS QUALITY TECHNICIAN) eGFR 84 >=60 mL/min/1. 73 m2 Comment: [...] last reviewed 2021. Blood 04/18/2024 1:22 AM FIBERGLASS QUALITY TECHNICIAN 04/18/2024 1:38 AM FIBERGLASS QUALITY TECHNICIAN us Georgia Rdedy NP LAB BLOOD ORDERABLES Fin al Result Performing Organization Address [facility]/ZIP Co de Phone Number [facility] [address] [place] [place] [address] * Calcium, ionized (04/18/2024 1:22 AM FIBERGLASS QUALITY TECHNICIAN) Calcium, Ionized 4.99 4.50 - 5.10 mg/dL Blood 04/18/2024 1:22 AM FIBERGLASS QUALITY TECHNICIAN 04/18/2024 1:32 AM FIBERGLASS QUALITY TECHNICIAN us Georgia Reddy NP LAB BLOOD ORDERABLES Fin al Result Performing Organization Address [facility]/ZIP Co de Phone Number [facility] [address] [place] [address] * (ABNORMAL) Iron profile w/ IBC (04/18/2024 1:22 AM FIBERGLASS QUALITY TECHNICIAN) Pathologist [facility] Iron 12(L) 50 - 150 mcg/dL TIBC 139(L) 250 - 400 mcg/dL [facility] Transferrin saturation 9(L) 20 - 50 % [facility] Blood 04/18/2024 1:22 AM FIBERGLASS QUALITY TECHNICIAN 04/18/2024 1:38 AM FIBERGLASS QUALITY TECHNICIAN Jaime Colin MD LAB BLOOD ORDERABLES Fin al Result Performing Organization Address [facility] Co de Phone Number [facility] [address] [place] [address] * (ABNORMAL) CBC without differential (04/18/2024 1:22 AM FIBERGLASS QUALITY TECHNICIAN) [facility] WBC 8.9 3.8 - 9.9 K/cumm Hgb 7.1(L) 13.0 - 17.5 g/dL [facility] Hct 22.2(L) 38.9 - 50.3 % [facility] Plt 101(L) 150 - 400 K/cumm [facility] MPV 11.2 9.1 - 12.3 fL [facility] RBC 2.40(L) 4.30 - 5.80 M/cumm [facility] MCV 92.5 81.3 - 96.4 fL [facility] MCH 29.6 27.1 - 33.3 pg [facility] MCHC 32.0(L) 32.3 - 35.7 g/dL [facility] RDW CV 14.6 11.1 - 14.9 % [facility] RDW SD 49.5(H) 35.7 - 48.1 fL [facility] NRBC abs 0.00 0.00 - 0.01 K/cumm [facility] Blood 04/18/2024 1:22 AM FIBERGLASS QUALITY TECHNICIAN 04/18/2024 1:38 AM FIBERGLASS QUALITY TECHNICIAN Georgia Reddy DIRECTOR SURFACE TRANSPORTATION LAB BLOOD ORDERABLES Fin al Result Performing Organization Address [facility] Co de Phone Number [facility] [address] [facility] [place] [employer] [address] * Magnesium (04/18/2024 1:22 AM FIBERGLASS QUALITY TECHNICIAN) [facility] Magnesium 2.2 1.4 - 2.5 mg/dL Blood 04/18/2024 1:22 AM FIBERGLASS QUALITY TECHNICIAN 04/18/2024 1:38 AM FIBERGLASS QUALITY TECHNICIAN Georgia Reddy DIRECTOR SURFACE TRANSPORTATION LAB BLOOD ORDERABLES Fin al Result Performing Organization Address [facility] de Phone Number [facility] [address] [place] [address] * (ABNORMAL) Renal function panel (04/18/2024 1:22 AM FIBERGLASS QUALITY TECHNICIAN) Pathologist [facility] Sodium 145 135 - 145 mmol/L Potassium, pl 4.1 3.3 - 4.9 mmol/L [facility] Chloride 111(H) 97 - 110 mmol/L [facility] CO2 25 22 - 32 mmol/L [facility] Anion gap 9 2 - 15 mmol/L [facility] BUN 35(H) 6 - 25 mg/dL [facility] Creatinine 1.03 0.80 - 1.30 mg/dL [facility] Glucose 112 70 - 199 mg/dL [facility] Comment: Interpretive Data Fasting glucose >/= 126 [...] 2022. Calcium 8.6 8.5 - 10.3 mg/dL [facility] Phosphorus, pl 3.4 2.3 - 4.5 mg/dL [facility] Albumin 3.0(L) 3.5 - 5.0 g/dL [facility] Blood 04/18/2024 1:22 AM FIBERGLASS QUALITY TECHNICIAN 04/18/2024 1:38 AM FIBERGLASS QUALITY TECHNICIAN Georgia Reddy NP LAB BLOOD ORDERABLES Fin al Result Performing Organization Address [facility]/ZIP Co de Phone Number [facility] [address] [place] [place] [address] * POCT glucose (04/18/2024 1:17 AM FIBERGLASS QUALITY TECHNICIAN) Glucose, POC 130 70 - 199 mg/dL Comment: For Glucose values <35 mg/dl when Hematocrit is >60 mg/dl,the test may not accurately detect significant hypoglycemia,and testing in the Laboratory should be considered if clinically indicated. Blood 04/18/2024 1:17 AM FIBERGLASS QUALITY TECHNICIAN 04/18/2024 1:17 AM FIBERGLASS QUALITY TECHNICIAN Jaime Colin MD LAB POCT ORDERABLES - DE VICE Final Result Performing Organization Address City/[facility]/ZIP Co de Phone Number [facility] [address] [place] [address] * POCT glucose (04/17/2024 11:42 PM FIBERGLASS QUALITY TECHNICIAN) Glucose, POC 118 70 - 199 mg/dL Comment: For Glucose values <35 mg/dl when Hematocrit is >60 mg/dl,the test may not accurately detect significant hypoglycemia,and testing in the Laboratory should be considered if clinically indicated. Blood 04/17/2024 11:4 2 PM FIBERGLASS QUALITY TECHNICIAN 04/17/2024 11:42 PM FIBERGLASS QUALITY TECHNICIAN Jaime Colin MD LAB POCT ORDERABLES - DE VICE Final Result Performing Organization Address [facility] Co wi Phone Number [facility] [address] [facility] [employer] [place], [place] [phone] * POCT glucose (04/17/2024 9:38 PM FIBERGLASS QUALITY TECHNICIAN) Glucose, POC 97 70 - 199 mg/dL Comment: For Glucose values <35 mg/dl when Hematocrit is >60 mg/dl,the test may not accurately detect significant hypoglycemia,and testing in the Laboratory should be considered if clinically indicated. Blood 04/17/2024 9:38 PM FIBERGLASS QUALITY TECHNICIAN 04/17/2024 9:38 PM FIBERGLASS QUALITY TECHNICIAN Jaime Colin MD LAB POCT ORDERABLES - DE VICE Final Result Performing Organization Address [facility] de Phone Number [facility] [address] [facility] [place] [employer] [place] [address] * POCT glucose (04/17/2024 7:49 PM FIBERGLASS QUALITY TECHNICIAN) [facility] Glucose, POC 116 70 - 199 mg/dL Comment: For Glucose values <35 mg/dl when Hematocrit is >60 mg/dl,the test may not accurately detect significant hypoglycemia,and testing in the Laboratory should be considered if clinically indicated. Blood 04/17/2024 7:49 PM FIBERGLASS QUALITY TECHNICIAN 04/17/2024 7:49 PM FIBERGLASS QUALITY TECHNICIAN Jaime Colin MD LAB POCT ORDERABLES - DE VICE Final Result Performing Organization Address [facility] Co de Phone Number [facility] [address] [facility] [employer] [place], [place] [id number] * (ABNORMAL) Hemoglobin and hematocrit (04/17/2024 5:48 PM FIBERGLASS QUALITY TECHNICIAN) Pathologist [facility] Hgb 7.2(L) 13.0 - 17.5 g/dL Hct 22.0(L) 38.9 - 50.3 % [facility] Blood 04/17/2024 5:48 PM FIBERGLASS QUALITY TECHNICIAN 04/17/2024 6:04 PM FIBERGLASS QUALITY TECHNICIAN Jaime Colin MD LAB BLOOD ORDERABLES Fin al Result Performing Organization Address [facility]/ZIP Co de Phone Number [facility] [address] [place] [employer] [place] [address] * POCT glucose (04/17/2024 5:21 PM FIBERGLASS QUALITY TECHNICIAN) Glucose, POC 106 70 - 199 mg/dL Comment: For Glucose values <35 mg/dl when Hematocrit is >60 mg/dl,the test may not accurately detect significant hypoglycemia,and testing in the Laboratory should be considered if clinically indicated. Blood 04/17/2024 5:21 PM FIBERGLASS QUALITY TECHNICIAN 04/17/2024 5:21 PM FIBERGLASS QUALITY TECHNICIAN Jaime Colin MD LAB POCT ORDERABLES - DE VICE Final Result Performing Organization Address [facility]/ZIP Co de Phone Number [facility] [address] [facility] [place] [employer] [place] [address] * Transfuse RBC (04/17/2024 3:50 PM FIBERGLASS QUALITY TECHNICIAN) Blood Georiga Reddy NP BLOOD TRANSFUSION ORDERA BLES Final Result Performing Organization Address City/[facility]/ZIP Co de Phone Number [facility] [address] Department [employer] [place], [place] [id number] * POCT glucose (04/17/2024 2:26 PM FIBERGLASS QUALITY TECHNICIAN) Glucose, POC 123 70 - 199 mg/dL Comment: For Glucose values <35 mg/dl when Hematocrit is >60 mg/dl,the test may not accurately detect significant hypoglycemia,and testing in the Laboratory should be considered if clinically indicated. Blood 04/17/2024 2:26 PM FIBERGLASS QUALITY TECHNICIAN 04/17/2024 2:26 PM FIBERGLASS QUALITY TECHNICIAN Jaime Colin MD LAB POCT ORDERABLES - DE VICE Final Result Performing Organization Address City/[facility] Co de Phone Number [facility] [address] Department [employer] [place], [place] [phone] * POCT glucose (04/17/2024 12:06 PM FIBERGLASS QUALITY TECHNICIAN) [facility] Glucose, POC 122 70 - 199 mg/dL Comment: For Glucose values <35 mg/dl when Hematocrit is >60 mg/dl,the test may not accurately detect significant hypoglycemia,and testing in the Laboratory should be considered if clinically indicated. Blood 04/17/2024 12:0 6 PM FIBERGLASS QUALITY TECHNICIAN 04/17/2024 12:06 PM FIBERGLASS QUALITY TECHNICIAN Jaime Colin MD LAB POCT ORDERABLES - DE VICE Final Result Performing Organization Address [facility] Co de Phone Number [facility] [address] [facility] [employer] [place], [place] [id number] * Prepare RBC: 1 Units (04/17/2024 11:46 AM FIBERGLASS QUALITY TECHNICIAN) [facility] Product code [id number] Unit Number [id number] 6-G [facility] Product Blood Type OPOS [facility] Dispense Status RETURNED [facility] Blood 04/17/2024 11:4 6 AM FIBERGLASS QUALITY TECHNICIAN Narrative [facility] - 04/18/2024 7:35 AM FIBERGLASS QUALITY TECHNICIAN Are special requirements needed? (All products are leukoreduced and CMV- safe)- >No Date required:-[id number] LRRBC # of [id number] Reasons:-Hgb <7 g/dL} Georgia Reddy NP BLOOD BANK PRODUCT ORDER GINNA Final Result Performing Organization Address City/[facility] Co de Phone Number [facility] [address] [place] [address] * (ABNORMAL) CBC without differential (04/17/2024 11:16 AM FIBERGLASS QUALITY TECHNICIAN) [facility] WBC 11.5(H) 3.8 - 9.9 K/cumm Hgb 6.6(L) 13.0 - 17.5 g/dL [facility] Hct 20.6(L) 38.9 - 50.3 % [facility] Plt 104(L) 150 - 400 K/cumm [facility] MPV 11.9 9.1 - 12.3 fL [facility] RBC 2.19(L) 4.30 - 5.80 M/cumm [facility] MCV 94.1 81.3 - 96.4 fL [facility] MCH 30.1 27.1 - 33.3 pg [facility] MCHC 32.0(L) 32.3 - 35.7 g/dL [facility] RDW CV 13.9 11.1 - 14.9 % [facility] RDW SD 47.0 35.7 - 48.1 fL [facility] NRBC abs 0.00 0.00 - 0.01 K/cumm [facility] Blood 04/17/2024 11:1 6 AM FIBERGLASS QUALITY TECHNICIAN 04/17/2024 11:29 AM FIBERGLASS QUALITY TECHNICIAN us Georgia Reddy NP LAB BLOOD ORDERABLES Fin al Result Performing Organization Address City/State/[facility] Co de Phone Number [facility] [address] [place] [address] * POCT glucose (04/17/2024 11:10 AM FIBERGLASS QUALITY TECHNICIAN) [facility] Glucose, POC 132 70 - 199 mg/dL Comment: For Glucose values <35 mg/dl when Hematocrit is >60 mg/dl,the test may not accurately detect significant hypoglycemia,and testing in the Laboratory should be considered if clinically indicated. Blood 04/17/2024 11:1 0 AM FIBERGLASS QUALITY TECHNICIAN 04/17/2024 11:10 AM FIBERGLASS QUALITY TECHNICIAN us Jaime Colin MD LAB POCT ORDERABLES - DE VICE Final Result [facility] [address] Department [place] [address] * XR Chest 1 View (04/17/2024 9:47 AM FIBERGLASS QUALITY TECHNICIAN) Anatomical Region Laterality Modality Body, Chest N/A Computed Radiogr aphy 04/17/2024 9:52 AM FIBERGLASS QUALITY TECHNICIAN Impressions 04/17/2024 9:52 AM FIBERGLASS QUALITY TECHNICIAN Interval removal right thoracostomy tube without additional significant interval change relative to same day chest radiograph. Electronically signed by: Mariano Santos M.D. Narrative 04/17/2024 9:52 AM FIBERGLASS QUALITY TECHNICIAN EXAMINATION: XR CHEST 1 VIEW HISTORY: Right [...] signed by: Mariano Santos M.D. Georgia Reddy DIRECTOR SURFACE TRANSPORTATION IMG XR PROCEDURES Final Result * POCT glucose (04/17/2024 9:33 AM FIBERGLASS QUALITY TECHNICIAN) Glucose, POC 142 70 - 199 mg/dL Comment: For Glucose values <35 mg/dl when Hematocrit is >60 mg/dl,the test may not accurately detect significant hypoglycemia,and testing in the Laboratory should be considered if clinically indicated. Blood 04/17/2024 9:33 AM FIBERGLASS QUALITY TECHNICIAN 04/17/2024 9:33 AM FIBERGLASS QUALITY TECHNICIAN Jaime Colin MD LAB POCT ORDERABLES - DE VICE Final Result Performing Organization Address [facility] Co de Phone Number [facility] [address] Department [place] [address] * POCT glucose (04/17/2024 8:12 AM FIBERGLASS QUALITY TECHNICIAN) Glucose, POC 135 70 - 199 mg/dL Comment: For Glucose values <35 mg/dl when Hematocrit is >60 mg/dl,the test may not accurately detect significant hypoglycemia,and testing in the Laboratory should be considered if clinically indicated. Blood 04/17/2024 8:12 AM FIBERGLASS QUALITY TECHNICIAN 04/17/2024 8:12 AM FIBERGLASS QUALITY TECHNICIAN Jaime Colin MD LAB POCT ORDERABLES - DE VICE Final Result Performing Organization Address [facility] de Phone Number [facility] [address] [place] [address] * Critical Care (04/17/2024 7:39 AM FIBERGLASS QUALITY TECHNICIAN) Narrative Brii Jaquez MD - 04/17/2024 7:39 AM FIBERGLASS QUALITY TECHNICIAN [place] Reddy NP 04/17/2024 11:47 AM Critical Care Performed by: Georgia Reddy NP Authorized by: Georgia Reddy NP CRITICAL CARE: Team: [facility] CT Shift: AM Level of Billing: Subsequent [...] plan with the patient's team and other medical/tax credit leasing consultant staff. This time was in addition to and separate from care provided by other practitioners on this day of service. I spent time reviewing and interpreting data from bedside monitors, laboratory results, and imaging and I spent time discussing the management of this critically ill patient with consultants and the medical staff us Georgia Reddy DIRECTOR SURFACE TRANSPORTATION IN CLINIC/BEDSIDE ORDERA BLES Final Result * POCT glucose (04/17/2024 7:12 AM FIBERGLASS QUALITY TECHNICIAN) [facility] Signature Glucose, POC 147 70 - 199 mg/dL Comment: For Glucose values <35 mg/dl when Hematocrit is >60 mg/dl,the test may not accurately detect significant hypoglycemia,and testing in the Laboratory should be considered if clinically indicated. Blood 04/17/2024 7:12 AM FIBERGLASS QUALITY TECHNICIAN 04/17/2024 7:12 AM FIBERGLASS QUALITY TECHNICIAN Jaime Colin MD LAB POCT ORDERABLES - DE VICE Final Result [facility] [address] Department [place] [address] * XR Chest 1 View - Portable - in AM (04/17/2024 6:10 AM FIBERGLASS QUALITY TECHNICIAN) Anatomical Region Laterality Modality Body, Chest N/A Computed Radiogr aphy 04/17/2024 7:10 AM FIBERGLASS QUALITY TECHNICIAN Impressions 04/17/2024 7:10 AM FIBERGLASS QUALITY TECHNICIAN As above. Electronically signed by: Mariano Santos M.D. Narrative 04/17/2024 7:10 AM FIBERGLASS QUALITY TECHNICIAN EXAMINATION: XR CHEST 1 VIEW HISTORY: Pleural [...] signed by: Mariano Santos M.D. Georgia Reddy DIRECTOR SURFACE TRANSPORTATION IMG XR PROCEDURES Final Result * POCT glucose (04/17/2024 6:08 AM FIBERGLASS QUALITY TECHNICIAN) [facility] Signature Glucose, POC 143 70 - 199 mg/dL Comment: For Glucose values <35 mg/dl when Hematocrit is >60 mg/dl,the test may not accurately detect significant hypoglycemia,and testing in the Laboratory should be considered if clinically indicated. Blood 04/17/2024 6:08 AM FIBERGLASS QUALITY TECHNICIAN 04/17/2024 6:08 AM FIBERGLASS QUALITY TECHNICIAN Jaime Colin MD LAB POCT ORDERABLES - DE VICE Final Result [facility] [address] Department [place] [address] * POCT glucose (04/17/2024 3:18 AM FIBERGLASS QUALITY TECHNICIAN) Pathologist [facility] Glucose, POC 141 70 - 199 mg/dL Comment: For Glucose values <35 mg/dl when Hematocrit is >60 mg/dl,the test may not accurately detect significant hypoglycemia,and testing in the Laboratory should be considered if clinically indicated. Blood 04/17/2024 3:18 AM FIBERGLASS QUALITY TECHNICIAN 04/17/2024 3:18 AM FIBERGLASS QUALITY TECHNICIAN Jaime Colin MD LAB POCT ORDERABLES - DE VICE Final Result [facility] [address] [facility] [place] [employer] [place] [address] * (ABNORMAL) Hemoglobin and hematocrit (04/17/2024 3:08 AM FIBERGLASS QUALITY TECHNICIAN) [facility] Hgb 7.2(L) 13.0 - 17.5 g/dL Hct 21.8(L) 38.9 - 50.3 % [facility] Blood 04/17/2024 3:08 AM FIBERGLASS QUALITY TECHNICIAN 04/17/2024 3:20 AM FIBERGLASS QUALITY TECHNICIAN us Pao Kwong DIRECTOR SURFACE TRANSPORTATION LAB BLOOD ORDERABLES Gail l Result [facility] [address] [facility] [place] [employer] [place] [address] * (ABNORMAL) Blood gas, arterial (04/17/2024 3:08 AM FIBERGLASS QUALITY TECHNICIAN) [facility] pH, Art 7.41 7.35 - 7.45 PCO2, Arterial 35 35 - 45 mmHg [facility] PO2, Arterial 165(H) 83 - 108 mmHg [facility] HCO3 Art (Calculated) 22 20 - 30 mmol/L [facility] BE, art -2 mmol/L [facility] Comment: Interpretive Data No Reference Range Established Current Interpretive Data was last revised on 2017 O2 Sat Art (Calculated) 100(H) 94 - 98 % [facility] Blood 04/17/2024 3:08 AM FIBERGLASS QUALITY TECHNICIAN 04/17/2024 3:18 AM FIBERGLASS QUALITY TECHNICIAN Pao Kwong DIRECTOR SURFACE TRANSPORTATION LAB BLOOD ORDERABLES Gail l Result Performing Organization Address [facility] Co de Phone Number [facility] [address] [facility] [place] [employer] [place] [address] * Transfuse RBC (04/17/2024 2:24 AM FIBERGLASS QUALITY TECHNICIAN) Blood Pao Kwong DIRECTOR SURFACE TRANSPORTATION BLOOD TRANSFUSION ORDERAB LES Final Result Performing Organization Address [facility] Co de Phone Number [facility] [address] [facility] [place] [employer] [place] [address] * POCT glucose (04/17/2024 2:14 AM FIBERGLASS QUALITY TECHNICIAN) Glucose, POC 144 70 - 199 mg/dL Comment: For Glucose values <35 mg/dl when Hematocrit is >60 mg/dl,the test may not accurately detect significant hypoglycemia,and testing in the Laboratory should be considered if clinically indicated. Blood 04/17/2024 2:14 AM FIBERGLASS QUALITY TECHNICIAN 04/17/2024 2:14 AM FIBERGLASS QUALITY TECHNICIAN Jaime Colin MD LAB POCT ORDERABLES - DE VICE Final Result Performing Organization Address [facility] Co de Phone Number [facility] [address] [facility] [place] [employer] [place] [address] * POCT glucose (04/17/2024 1:05 AM FIBERGLASS QUALITY TECHNICIAN) Glucose, POC 138 70 - 199 mg/dL Comment: For Glucose values <35 mg/dl when Hematocrit is >60 mg/dl,the test may not accurately detect significant hypoglycemia,and testing in the Laboratory should be considered if clinically indicated. Blood 04/17/2024 1:05 AM FIBERGLASS QUALITY TECHNICIAN 04/17/2024 1:05 AM FIBERGLASS QUALITY TECHNICIAN Jaime Colin MD LAB POCT ORDERABLES - DE VICE Final Result Performing Organization Address [facility]/ZIP Co de Phone Number [facility] [address] [place] [employer] [place] [address] * (ABNORMAL) eGFR (04/17/2024 12:51 AM FIBERGLASS QUALITY TECHNICIAN) eGFR 58(L) >=60 mL/min/1. 73 m2 Comment: [...] reviewed 2021. Blood 04/17/2024 12:5 1 AM FIBERGLASS QUALITY TECHNICIAN 04/17/2024 1:09 AM FIBERGLASS QUALITY TECHNICIAN Aleshia Mckeon NP LAB BLOOD ORDERABLES F inal Result [facility] [address] Department [employer] [place], [place] [id number] * Calcium, ionized (04/17/2024 12:51 AM FIBERGLASS QUALITY TECHNICIAN) Calcium, Ionized 4.80 4.50 - 5.10 mg/dL Blood 04/17/2024 12:5 1 AM FIBERGLASS QUALITY TECHNICIAN 04/17/2024 1:02 AM FIBERGLASS QUALITY TECHNICIAN Georgia Reddy DIRECTOR SURFACE TRANSPORTATION LAB BLOOD ORDERABLES Fin al Result [facility] [address] [place] [place] [address] * (ABNORMAL) CBC without differential (04/17/2024 12:51 AM FIBERGLASS QUALITY TECHNICIAN) [facility] WBC 13.2(H) 3.8 - 9.9 K/cumm Hgb 6.4(C) 13.0 - 17.5 g/dL [facility] Comment:Spoke with Shelly phillips RN. Critical result called to and read back by SHELLY MARCIAL RN on 04 17 2024 at 0122 to Lizzie Kraft. Hct 19.6(L) 38.9 - 50.3 % [facility] Plt 115(L) 150 - 400 K/cumm [facility] MPV 11.7 9.1 - 12.3 fL [facility] RBC 2.10(L) 4.30 - 5.80 M/cumm [facility] MCV 93.3 81.3 - 96.4 fL [facility] MCH 30.5 27.1 - 33.3 pg [facility] MCHC 32.7 32.3 - 35.7 g/dL [facility] RDW CV 13.6 11.1 - 14.9 % [facility] RDW SD 46.0 35.7 - 48.1 fL [facility] NRBC abs 0.00 0.00 - 0.01 K/cumm [facility] Blood 04/17/2024 12:5 1 AM FIBERGLASS QUALITY TECHNICIAN 04/17/2024 1:09 AM FIBERGLASS QUALITY TECHNICIAN Georgia Reddy DIRECTOR SURFACE TRANSPORTATION LAB BLOOD ORDERABLES Fin al Result [facility] [address] Department [place] [address] * Magnesium (04/17/2024 12:51 AM FIBERGLASS QUALITY TECHNICIAN) Magnesium 2.2 1.4 - 2.5 mg/dL Blood 04/17/2024 12:5 1 AM FIBERGLASS QUALITY TECHNICIAN 04/17/2024 1:09 AM FIBERGLASS QUALITY TECHNICIAN Georgia Reddy DIRECTOR SURFACE TRANSPORTATION LAB BLOOD ORDERABLES Fin al Result [facility] [address] Department [place] [address] * (ABNORMAL) Renal function panel (04/17/2024 12:51 AM FIBERGLASS QUALITY TECHNICIAN) Sodium 143 135 - 145 mmol/L Potassium, pl 4.4 3.3 - 4.9 mmol/L [facility] Chloride 110 97 - 110 mmol/L [facility] CO2 21(L) 22 - 32 mmol/L [facility] Anion gap 12 2 - 15 mmol/L [facility] BUN 35(H) 6 - 25 mg/dL [facility] Creatinine 1.39(H) 0.80 - 1.30 mg/dL [facility] Glucose 125 70 - 199 mg/dL [facility] Comment: Interpretive Data Fasting glucose >/= 126 [...] 2022. Calcium 8.2(L) 8.5 - 10.3 mg/dL [facility] Phosphorus, pl 4.3 2.3 - 4.5 mg/dL [facility] Albumin 3.0(L) 3.5 - 5.0 g/dL [facility] Blood 04/17/2024 12:5 1 AM FIBERGLASS QUALITY TECHNICIAN 04/17/2024 1:09 AM FIBERGLASS QUALITY TECHNICIAN Georgia Reddy DIRECTOR SURFACE TRANSPORTATION LAB BLOOD ORDERABLES Fin al Result Performing Organization Address [facility] Co de Phone Number [facility] [address] [facility] [employer] [place], [place] [phone] * POCT glucose (04/17/2024 12:17 AM FIBERGLASS QUALITY TECHNICIAN) Glucose, POC 130 70 - 199 mg/dL Comment: For Glucose values <35 mg/dl when Hematocrit is >60 mg/dl,the test may not accurately detect significant hypoglycemia,and testing in the Laboratory should be considered if clinically indicated. Blood 04/17/2024 12:1 7 AM FIBERGLASS QUALITY TECHNICIAN 04/17/2024 12:17 AM FIBERGLASS QUALITY TECHNICIAN Jaime Colin MD LAB POCT ORDERABLES - DE VICE Final Result Performing Organization Address [facility] Co de Phone Number [facility] [address] [facility] [place] [employer] [place] [address] * POCT glucose (04/16/2024 11:06 PM FIBERGLASS QUALITY TECHNICIAN) Glucose, POC 127 70 - 199 mg/dL Comment: For Glucose values <35 mg/dl when Hematocrit is >60 mg/dl,the test may not accurately detect significant hypoglycemia,and testing in the Laboratory should be considered if clinically indicated. Blood 04/16/2024 11:0 6 PM FIBERGLASS QUALITY TECHNICIAN 04/16/2024 11:06 PM FIBERGLASS QUALITY TECHNICIAN Jaime Colin MD LAB POCT ORDERABLES - DE VICE Final Result Performing Organization Address [facility] Co de Phone Number [facility] [address] [facility] [place] [employer] [place] [address] * POCT glucose (04/16/2024 10:07 PM FIBERGLASS QUALITY TECHNICIAN) Glucose, POC 125 70 - 199 mg/dL Comment: For Glucose values <35 mg/dl when Hematocrit is >60 mg/dl,the test may not accurately detect significant hypoglycemia,and testing in the Laboratory should be considered if clinically indicated. Blood 04/16/2024 10:0 7 PM FIBERGLASS QUALITY TECHNICIAN 04/16/2024 10:07 PM FIBERGLASS QUALITY TECHNICIAN Jaime Colin MD LAB POCT ORDERABLES - DE VICE Final Result [facility] [address] Department [place] [address] * XR Chest 1 View (04/16/2024 9:15 PM FIBERGLASS QUALITY TECHNICIAN) Anatomical Region Laterality Modality Body, Chest N/A Computed Radiogr aphy 04/17/2024 7:10 AM FIBERGLASS QUALITY TECHNICIAN Impressions 04/17/2024 7:10 AM FIBERGLASS QUALITY TECHNICIAN As above. Electronically signed by: Mariano Santos M.D. Narrative 04/17/2024 7:10 AM FIBERGLASS QUALITY TECHNICIAN EXAMINATION: XR CHEST 1 VIEW HISTORY: Pleural [...] signed by: Mariano Santos M.D. Pao Kwong DIRECTOR SURFACE TRANSPORTATION IMG XR PROCEDURES Final R esult * Oxyhemoglobin, central venous (04/16/2024 9:14 PM FIBERGLASS QUALITY TECHNICIAN) Pathologist [facility] Oxyhemoglobin, CV 69.7 % Comment: Interpretive Data No reference range established. Current interpretive data was last revised 2019. Blood 04/16/2024 9:14 PM FIBERGLASS QUALITY TECHNICIAN 04/16/2024 9:21 PM FIBERGLASS QUALITY TECHNICIAN Pao Kwong NP LAB BLOOD ORDERABLES Gail l Result Performing Organization Address City/[facility]/ZIP Co de Phone Number [facility] [address] [place] [employer] [place] [address] * POCT glucose (04/16/2024 8:48 PM FIBERGLASS QUALITY TECHNICIAN) Glucose, POC 118 70 - 199 mg/dL Comment: For Glucose values <35 mg/dl when Hematocrit is >60 mg/dl,the test may not accurately detect significant hypoglycemia,and testing in the Laboratory should be considered if clinically indicated. Blood 04/16/2024 8:48 PM FIBERGLASS QUALITY TECHNICIAN 04/16/2024 8:48 PM FIBERGLASS QUALITY TECHNICIAN Jaime Colin MD LAB POCT ORDERABLES - DE VICE Final Result Performing Organization Address City/[facility]/ZIP Co de Phone Number [facility] [address] [place] [employer] [place] [address] * Critical Care (04/16/2024 7:49 PM FIBERGLASS QUALITY TECHNICIAN) Narrative Brii Jaquez MD - 04/16/2024 7:49 PM FIBERGLASS QUALITY TECHNICIAN Pao Kwong NP 04/17/2024 5:42 AM Critical Care Performed by: Pao Kwong NP Authorized by: Pao Kwong NP CRITICAL CARE: Team: [facility] CT Shift: PM Level of Billing: Critical [...] plan with the ICU team and other medical/tax credit leasing consultant staff, making frequent assessments and decisions [...] laboratory results, and imaging us Pao Kwong DIRECTOR SURFACE TRANSPORTATION IN CLINIC/BEDSIDE ORDERAB LES Final Result * Oxyhemoglobin, central venous (04/16/2024 7:44 PM FIBERGLASS QUALITY TECHNICIAN) [facility] Signature Oxyhemoglobin, CV 90.0 % Comment: Interpretive Data No reference range established. Current interpretive data was last revised 2019. Blood 04/16/2024 7:44 PM FIBERGLASS QUALITY TECHNICIAN 04/16/2024 8:01 PM FIBERGLASS QUALITY TECHNICIAN us Pao Kwong DIRECTOR SURFACE TRANSPORTATION LAB BLOOD ORDERABLES Gail l Result [facility] [address] [place] [address] * POCT glucose (04/16/2024 7:27 PM FIBERGLASS QUALITY TECHNICIAN) Glucose, POC 120 70 - 199 mg/dL Comment: For Glucose values <35 mg/dl when Hematocrit is >60 mg/dl,the test may not accurately detect significant hypoglycemia,and testing in the Laboratory should be considered if clinically indicated. Blood 04/16/2024 7:27 PM FIBERGLASS QUALITY TECHNICIAN 04/16/2024 7:27 PM FIBERGLASS QUALITY TECHNICIAN Jaime Colin MD LAB POCT ORDERABLES - DE VICE Final Result Performing Organization Address [facility] Co de Phone Number [facility] [address] [facility] [place] [employer] [place] [address] * POCT glucose (04/16/2024 6:04 PM FIBERGLASS QUALITY TECHNICIAN) Glucose, POC 134 70 - 199 mg/dL Comment: For Glucose values <35 mg/dl when Hematocrit is >60 mg/dl,the test may not accurately detect significant hypoglycemia,and testing in the Laboratory should be considered if clinically indicated. Blood 04/16/2024 6:04 PM FIBERGLASS QUALITY TECHNICIAN 04/16/2024 6:04 PM FIBERGLASS QUALITY TECHNICIAN Result [facility] Jaime Colin MD LAB POCT ORDERABLES - DE VICE Final Result Performing Organization Address [facility] Co de Phone Number [facility] [address] [facility] [place] [employer] [place] [address] * POCT glucose (04/16/2024 5:23 PM FIBERGLASS QUALITY TECHNICIAN) Glucose, POC 121 70 - 199 mg/dL Comment: For Glucose values <35 mg/dl when Hematocrit is >60 mg/dl,the test may not accurately detect significant hypoglycemia,and testing in the Laboratory should be considered if clinically indicated. Blood 04/16/2024 5:23 PM FIBERGLASS QUALITY TECHNICIAN 04/16/2024 5:23 PM FIBERGLASS QUALITY TECHNICIAN Jaime Colin MD LAB POCT ORDERABLES - DE VICE Final Result Performing Organization Address [facility]/ZIP Co de Phone Number [facility] [address] [facility] [place] [employer] [place] [address] * POCT glucose (04/16/2024 3:10 PM FIBERGLASS QUALITY TECHNICIAN) [facility] Glucose, POC 109 70 - 199 mg/dL Comment: For Glucose values <35 mg/dl when Hematocrit is >60 mg/dl,the test may not accurately detect significant hypoglycemia,and testing in the Laboratory should be considered if clinically indicated. Blood 04/16/2024 3:10 PM FIBERGLASS QUALITY TECHNICIAN 04/16/2024 3:10 PM FIBERGLASS QUALITY TECHNICIAN Jaime Colin MD LAB POCT ORDERABLES - DE VICE Final Result Performing Organization Address [facility] Co de Phone Number [facility] [address] [facility] [place] [employer] [place] [address] * POCT glucose (04/16/2024 2:27 PM FIBERGLASS QUALITY TECHNICIAN) [facility] Glucose, POC 103 70 - 199 mg/dL Comment: For Glucose values <35 mg/dl when Hematocrit is >60 mg/dl,the test may not accurately detect significant hypoglycemia,and testing in the Laboratory should be considered if clinically indicated. Blood 04/16/2024 2:27 PM FIBERGLASS QUALITY TECHNICIAN 04/16/2024 2:27 PM FIBERGLASS QUALITY TECHNICIAN Jaime Colin MD LAB POCT ORDERABLES - DE VICE Final Result Performing Organization Address City/[facility] Co de Phone Number [facility] [address] [facility] [place] [employer] [place] [address] * (ABNORMAL) Blood gas, arterial (04/16/2024 2:24 PM FIBERGLASS QUALITY TECHNICIAN) [facility] pH, Art 7.40 7.35 - 7.45 PCO2, Arterial 35 35 - 45 mmHg [facility] PO2, Arterial 69(L) 83 - 108 mmHg [facility] HCO3 Art (Calculated) 22 20 - 30 mmol/L [facility] BE, art -2 mmol/L [facility] Comment: Interpretive Data No Reference Range Established Current Interpretive Data was last revised on 2017 O2 Sat Art (Calculated) 94 94 - 98 % [facility] Blood 04/16/2024 2:24 PM FIBERGLASS QUALITY TECHNICIAN 04/16/2024 2:30 PM FIBERGLASS QUALITY TECHNICIAN Jazmin Tirado NP LAB BLOOD ORDERABLES Final Result Performing Organization Address [facility] Co de Phone Number [facility] [address] [place] [place] [address] * (ABNORMAL) eGFR (04/16/2024 1:33 PM FIBERGLASS QUALITY TECHNICIAN) eGFR 56(L) >=60 mL/min/1. 73 m2 Comment: [...] last reviewed 2021. Blood 04/16/2024 1:33 PM FIBERGLASS QUALITY TECHNICIAN 04/16/2024 1:46 PM FIBERGLASS QUALITY TECHNICIAN Jazmin Tirado NP LAB BLOOD ORDERABLES Final Result Performing Organization Address City/[facility]/ZIP Co de Phone Number [facility] [address] Department [place] [address] * (ABNORMAL) Differential, auto (04/16/2024 1:33 PM FIBERGLASS QUALITY TECHNICIAN) Neutrophil abs 12.2(H) 1.5 - 6.5 K/cumm Imm gran abs 0.1 0.0 - 0.1 K/cumm [facility] Lymphocyte abs 0.7(L) 0.8 - 3.3 K/cumm [facility] Monocyte abs 1.5(H) 0.2 - 0.8 K/cumm [facility] Eosinophil abs 0.0 0.0 - 0.5 K/cumm [facility] Basophil abs 0.0 0.0 - 0.1 K/cumm [facility] Neutrophil pct 84.4 % [facility] Comment: Interpretive Data Percent cell count reference ranges are not reported, since discordance with absolute values may lead to misinterpretation of CBC data. Current Interpretive Data was last revised on 2017. Imm gran pct 0.4 % [facility] Comment: Interpretive Data Percent cell count reference ranges are not reported, since discordance with absolute values may lead to misinterpretation of CBC data. Current Interpretive Data was last revised on 2017. Lymphocyte pct 4.8 % [facility] Comment: Interpretive Data Percent cell count reference ranges are not reported, since discordance with absolute values may lead to misinterpretation of CBC data. Current Interpretive Data was last revised on 2017. Monocyte pct 10.2 % [facility] Comment: Interpretive Data Percent cell count reference ranges are not reported, since discordance with absolute values may lead to misinterpretation of CBC data. Current Interpretive Data was last revised on 2017. Eosinophil pct 0.0 % [facility] Comment: Interpretive Data Percent cell count reference ranges are not reported, since discordance with absolute values may lead to misinterpretation of CBC data. Current Interpretive Data was last revised on 2017. Basophil pct 0.2 % [facility] Comment: Interpretive Data Percent cell count reference ranges are not reported, since discordance with absolute values may lead to misinterpretation of CBC data. Current Interpretive Data was last revised on 2017. Blood 04/16/2024 1:33 PM FIBERGLASS QUALITY TECHNICIAN 04/16/2024 1:47 PM FIBERGLASS QUALITY TECHNICIAN Jazmin Tirado NP LAB BLOOD ORDERABLES Final Result Performing Organization Address [facility] Co de Phone Number [facility] [address] [place] [place] [address] * (ABNORMAL) CBC with auto differential (04/16/2024 1:33 PM FIBERGLASS QUALITY TECHNICIAN) [facility] WBC 14.5(H) 3.8 - 9.9 K/cumm Hgb 7.3(L) 13.0 - 17.5 g/dL [facility] Hct 22.1(L) 38.9 - 50.3 % [facility] Plt 109(L) 150 - 400 K/cumm [facility] MPV 11.3 9.1 - 12.3 fL [facility] RBC 2.42(L) 4.30 - 5.80 M/cumm [facility] MCV 91.3 81.3 - 96.4 fL [facility] MCH 30.2 27.1 - 33.3 pg [facility] MCHC 33.0 32.3 - 35.7 g/dL [facility] RDW CV 13.2 11.1 - 14.9 % [facility] RDW SD 43.9 35.7 - 48.1 fL [facility] NRBC abs 0.00 0.00 - 0.01 K/cumm [facility] Blood 04/16/2024 1:33 PM FIBERGLASS QUALITY TECHNICIAN 04/16/2024 1:47 PM FIBERGLASS QUALITY TECHNICIAN Jazmin Tirado DIRECTOR SURFACE TRANSPORTATION LAB BLOOD ORDERABLES Final Result Performing Organization Address [facility] Co de Phone Number [facility] [address] [place] [place] [address] * (ABNORMAL) Renal function panel (04/16/2024 1:33 PM FIBERGLASS QUALITY TECHNICIAN) [facility] Sodium 140 135 - 145 mmol/L Potassium, pl 4.1 3.3 - 4.9 mmol/L [facility] Chloride 109 97 - 110 mmol/L [facility] CO2 22 22 - 32 mmol/L [facility] Anion gap 9 2 - 15 mmol/L [facility] BUN 31(H) 6 - 25 mg/dL [facility] Creatinine 1.45(H) 0.80 - 1.30 mg/dL [facility] Glucose 100 70 - 199 mg/dL [facility] Comment: Interpretive Data Fasting glucose >/= 126 [...] 2022. Calcium 8.2(L) 8.5 - 10.3 mg/dL [facility] Phosphorus, pl 4.4 2.3 - 4.5 mg/dL [facility] Albumin 3.2(L) 3.5 - 5.0 g/dL [facility] Blood 04/16/2024 1:33 PM FIBERGLASS QUALITY TECHNICIAN 04/16/2024 1:46 PM FIBERGLASS QUALITY TECHNICIAN us Jazmin Tirado NP LAB BLOOD ORDERABLES Final Result Performing Organization Address [facility]/ZIP Co de Phone Number [facility] [address] Department [place] [address] * POCT glucose (04/16/2024 1:06 PM FIBERGLASS QUALITY TECHNICIAN) [facility] Signature Glucose, POC 136 70 - 199 mg/dL Comment: For Glucose values <35 mg/dl when Hematocrit is >60 mg/dl,the test may not accurately detect significant hypoglycemia,and testing in the Laboratory should be considered if clinically indicated. Blood 04/16/2024 1:06 PM FIBERGLASS QUALITY TECHNICIAN 04/16/2024 1:06 PM FIBERGLASS QUALITY TECHNICIAN us Jaime Colin MD LAB POCT ORDERABLES - DE VICE Final Result Performing Organization Address [facility] Healthcare/ZIP Co de Phone Number [facility] [address] [facility] [place] [place] [address] * POCT glucose (04/16/2024 11:03 AM FIBERGLASS QUALITY TECHNICIAN) Glucose, POC 140 70 - 199 mg/dL Comment: For Glucose values <35 mg/dl when Hematocrit is >60 mg/dl,the test may not accurately detect significant hypoglycemia,and testing in the Laboratory should be considered if clinically indicated. Blood 04/16/2024 11:0 3 AM FIBERGLASS QUALITY TECHNICIAN 04/16/2024 11:03 AM FIBERGLASS QUALITY TECHNICIAN Jaime Colin MD LAB POCT ORDERABLES - DE VICE Final Result Performing Organization Address City/[facility]/ZIP Co de Phone Number [facility] [address] [facility] [place] [employer] [place] [address] * POCT glucose (04/16/2024 10:08 AM FIBERGLASS QUALITY TECHNICIAN) Glucose, POC 113 70 - 199 mg/dL Comment: For Glucose values <35 mg/dl when Hematocrit is >60 mg/dl,the test may not accurately detect significant hypoglycemia,and testing in the Laboratory should be considered if clinically indicated. Blood 04/16/2024 10:0 8 AM FIBERGLASS QUALITY TECHNICIAN 04/16/2024 10:08 AM FIBERGLASS QUALITY TECHNICIAN Jaime Colin MD LAB POCT ORDERABLES - DE VICE Final Result Performing Organization Address City/[facility]/ZIP Co de Phone Number [facility] [address] [facility] [place] [address] * POCT glucose (04/16/2024 8:50 AM FIBERGLASS QUALITY TECHNICIAN) Glucose, POC 112 70 - 199 mg/dL Comment: For Glucose values <35 mg/dl when Hematocrit is >60 mg/dl,the test may not accurately detect significant hypoglycemia,and testing in the Laboratory should be considered if clinically indicated. Blood 04/16/2024 8:50 AM FIBERGLASS QUALITY TECHNICIAN 04/16/2024 8:50 AM FIBERGLASS QUALITY TECHNICIAN Jaime Colin MD LAB POCT ORDERABLES - DE VICE Final Result Performing Organization Address [facility] Co de Phone Number [facility] [address] Department [employer] [place], [place] [id number] * Lactate (04/16/2024 8:44 AM FIBERGLASS QUALITY TECHNICIAN) Pathologist [facility] Lactate 1.9 0.7 - 2.0 mmol/L Blood 04/16/2024 8:44 AM FIBERGLASS QUALITY TECHNICIAN 04/16/2024 8:52 AM FIBERGLASS QUALITY TECHNICIAN Jazmin Tirado DIRECTOR SURFACE TRANSPORTATION LAB BLOOD ORDERABLES Final Result Performing Organization Address [facility] de Phone Number [facility] [address] [place] [address] * aPTT (04/16/2024 8:44 AM FIBERGLASS QUALITY TECHNICIAN) Pathologist [facility] aPTT 33 28 - 38 sec Comment: Interpretive Data Heparin therapeutic range: 66.0 - 100.0 seconds. Range based on correlation with therapeutic heparin activity range of 0.3 - 0.7 Units/mL. Current interpretive data was last revised on 2023. Blood 04/16/2024 8:44 AM FIBERGLASS QUALITY TECHNICIAN 04/16/2024 8:53 AM FIBERGLASS QUALITY TECHNICIAN Aleshia Mckeon DIRECTOR SURFACE TRANSPORTATION LAB BLOOD ORDERABLES F inal Result Performing Organization Address [facility] Co de Phone Number [facility] [address] Department [employer] [place], [place] [phone] * Protime-INR (04/16/2024 8:44 AM FIBERGLASS QUALITY TECHNICIAN) PT 12.2 9.7 - 13.0 sec INR 1.13 0.90 - 1.20 [facility] Comment: Interpretive data Oral anticoagulant therapeutic ranges: Venous thromboembolism prophylaxis or treatment: 2.0-3.0 CARDIOLOGY Standard range: 2.0-3.0 High-intensity range: 2.5-3.5 Refer to indication-specific guidelines for appropriate target ranges for prosthetic heart valve replacement. Current interpretive data was last revised on 2019. Blood 04/16/2024 8:44 AM FIBERGLASS QUALITY TECHNICIAN 04/16/2024 8:53 AM FIBERGLASS QUALITY TECHNICIAN Aleshia Mckeon DIRECTOR SURFACE TRANSPORTATION LAB BLOOD ORDERABLES F inal Result Performing Organization Address [facility] de Phone Number [facility] [address] [facility] [place] [place] [address] * Fibrinogen (04/16/2024 8:44 AM FIBERGLASS QUALITY TECHNICIAN) Fibrinogen 340 170 - 400 mg/dL Blood 04/16/2024 8:44 AM FIBERGLASS QUALITY TECHNICIAN 04/16/2024 8:53 AM FIBERGLASS QUALITY TECHNICIAN Result [facility] Aleshia Mckeon DIRECTOR SURFACE TRANSPORTATION LAB BLOOD ORDERABLES F inal Result Performing Organization Address [facility] de Phone Number [facility] [address] [facility] [place] [address] * Blood gas, arterial (04/16/2024 8:44 AM FIBERGLASS QUALITY TECHNICIAN) pH, Art 7.39 7.35 - 7.45 PCO2, Arterial 39 35 - 45 mmHg [facility] PO2, Arterial 86 83 - 108 mmHg [facility] HCO3 Art (Calculated) 24 20 - 30 mmol/L [facility] BE, art -1 mmol/L [facility] Comment: Interpretive Data No Reference Range Established Current Interpretive Data was last revised on 2017 O2 Sat Art (Calculated) 96 94 - 98 % [facility] Blood 04/16/2024 8:44 AM FIBERGLASS QUALITY TECHNICIAN 04/16/2024 8:52 AM FIBERGLASS QUALITY TECHNICIAN Jazmin Tirado DIRECTOR SURFACE TRANSPORTATION LAB BLOOD ORDERABLES Final Result Performing Organization Address [facility] Co de Phone Number [facility] [address] [place] [address] * POCT glucose (04/16/2024 7:07 AM FIBERGLASS QUALITY TECHNICIAN) [facility] Signature Glucose, POC 129 70 - 199 mg/dL Comment: For Glucose values <35 mg/dl when Hematocrit is >60 mg/dl,the test may not accurately detect significant hypoglycemia,and testing in the Laboratory should be considered if clinically indicated. Blood 04/16/2024 7:07 AM FIBERGLASS QUALITY TECHNICIAN 04/16/2024 7:07 AM FIBERGLASS QUALITY TECHNICIAN us Jaime Colin MD LAB POCT ORDERABLES - DE VICE Final Result [facility] [address] Department [place] [address] * Critical Care (04/16/2024 6:28 AM FIBERGLASS QUALITY TECHNICIAN) Narrative Suzi Garrett MD - 04/16/2024 6:28 AM FIBERGLASS QUALITY TECHNICIAN Jazmin Tirado NP 04/16/2024 4:20 PM Critical Care Performed by: Jazmin Tirado NP Authorized by: Jazmin Tirado NP CRITICAL CARE: Team: [facility] CT Shift: AM Level of Billing: Critical [...] plan with the ICU team and other medical/tax credit leasing consultant staff, making frequent assessments and decisions [...] Result * POCT glucose (04/16/2024 5:58 AM FIBERGLASS QUALITY TECHNICIAN) Glucose, POC 143 70 - 199 mg/dL Comment: For Glucose values <35 mg/dl when Hematocrit is >60 mg/dl,the test may not accurately detect significant hypoglycemia,and testing in the Laboratory should be considered if clinically indicated. Blood 04/16/2024 5:58 AM FIBERGLASS QUALITY TECHNICIAN 04/16/2024 5:58 AM FIBERGLASS QUALITY TECHNICIAN us Jaime Colin MD LAB POCT ORDERABLES - DE VICE Final Result [facility] [address] [place] [address] * XR Chest 1 View - Portable - in AM (04/16/2024 5:42 AM FIBERGLASS QUALITY TECHNICIAN) Anatomical Region Laterality Modality Body, Chest N/A Computed Radiogr aphy 04/16/2024 7:33 AM FIBERGLASS QUALITY TECHNICIAN Impressions 04/16/2024 7:33 AM FIBERGLASS QUALITY TECHNICIAN Comparison is made to 04/15/2024. Endotracheal tube and nasogastric tubes have been removed. There is a mediastinal drain and left thoracostomy tube unchanged in position. Kelso-Gaston catheter tip overlies the main pulmonary artery. Right internal jugular catheter tip overlies the superior vena cava. Mediastinal wires unchanged in position. There is a right basilar thoracostomy tube is well. There is a small posterior layering left pleural effusion with mild atelectasis. No pneumothorax is appreciated. The heart size is stable. Electronically signed by: Rashawn Samayoa M.D. Narrative 04/16/2024 7:33 AM FIBERGLASS QUALITY TECHNICIAN Examination: Chest 1 view Procedure Note Rashawn Samayoa MD - 04/16/2024 Examination: Chest 1 view IMPRESSION: Comparison is made to 04/15/2024. Endotracheal tube and nasogastric tubes have been removed. There is a mediastinal drain and left thoracostomy tube unchanged in position. Kelso-Gaston catheter tip overlies the main pulmonary artery. Right internal jugular catheter tip overlies the superior vena cava. Mediastinal wires unchanged in position. There is a right basilar thoracostomy tube is well. There is a small posterior layering left pleural effusion with mild atelectasis. No pneumothorax is appreciated. The heart size is stable. Electronically signed by: Rashawn Samayoa M.D. Result [facility] Georgia Reddy DIRECTOR SURFACE TRANSPORTATION IMG XR PROCEDURES Final Result * (ABNORMAL) Hemoglobin and hematocrit (04/16/2024 5:11 AM FIBERGLASS QUALITY TECHNICIAN) [facility] Hgb 8.0(L) 13.0 - 17.5 g/dL Hct 24.6(L) 38.9 - 50.3 % [facility] Blood 04/16/2024 5:11 AM FIBERGLASS QUALITY TECHNICIAN 04/16/2024 5:24 AM FIBERGLASS QUALITY TECHNICIAN Result [facility] Aleshia Mckeon DIRECTOR SURFACE TRANSPORTATION LAB BLOOD ORDERABLES F inal Result Performing Organization Address City/[facility]/ZIP Co de Phone Number [facility] [address] [facility] [employer] [place], [place] [phone] * Potassium (04/16/2024 5:11 AM FIBERGLASS QUALITY TECHNICIAN) [facility] Potassium, pl 4.3 3.3 - 4.9 mmol/L Blood 04/16/2024 5:11 AM FIBERGLASS QUALITY TECHNICIAN 04/16/2024 5:24 AM FIBERGLASS QUALITY TECHNICIAN Result [facility] Aleshia Mckeon DIRECTOR SURFACE TRANSPORTATION LAB BLOOD ORDERABLES F inal Result Performing Organization Address City/[facility]/ZIP Co de Phone Number [facility] [address] [facility] [employer] [place], [place] [phone] * Blood gas, arterial (04/16/2024 5:11 AM FIBERGLASS QUALITY TECHNICIAN) [facility] pH, Art 7.42 7.35 - 7.45 PCO2, Arterial 37 35 - 45 mmHg [facility] PO2, Arterial 89 83 - 108 mmHg [facility] HCO3 Art (Calculated) 24 20 - 30 mmol/L [facility] BE, art 0 mmol/L [facility] Comment: Interpretive Data No Reference Range Established Current Interpretive Data was last revised on 2017 O2 Sat Art (Calculated) 97 94 - 98 % [facility] Blood 04/16/2024 5:11 AM FIBERGLASS QUALITY TECHNICIAN 04/16/2024 5:19 AM FIBERGLASS QUALITY TECHNICIAN Aleshia Mckeon NP LAB BLOOD ORDERABLES F inal Result Performing Organization Address [facility] Co de Phone Number [facility] [address] [place] [address] * POCT glucose (04/16/2024 4:00 AM FIBERGLASS QUALITY TECHNICIAN) Glucose, POC 131 70 - 199 mg/dL Comment: For Glucose values <35 mg/dl when Hematocrit is >60 mg/dl,the test may not accurately detect significant hypoglycemia,and testing in the Laboratory should be considered if clinically indicated. Blood 04/16/2024 4:00 AM FIBERGLASS QUALITY TECHNICIAN 04/16/2024 4:00 AM FIBERGLASS QUALITY TECHNICIAN Jaime Colin MD LAB POCT ORDERABLES - DE VICE Final Result Performing Organization Address [facility] de Phone Number [facility] [address] [place] [address] * POCT glucose (04/16/2024 2:07 AM FIBERGLASS QUALITY TECHNICIAN) Glucose, POC 141 70 - 199 mg/dL Comment: For Glucose values <35 mg/dl when Hematocrit is >60 mg/dl,the test may not accurately detect significant hypoglycemia,and testing in the Laboratory should be considered if clinically indicated. Blood 04/16/2024 2:07 AM FIBERGLASS QUALITY TECHNICIAN 04/16/2024 2:07 AM FIBERGLASS QUALITY TECHNICIAN Jaime Colin MD LAB POCT ORDERABLES - DE VICE Final Result Performing Organization Address [facility] de Phone Number [facility] [address] [place] [address] * POCT glucose (04/16/2024 1:01 AM FIBERGLASS QUALITY TECHNICIAN) Glucose, POC 123 70 - 199 mg/dL Comment: For Glucose values <35 mg/dl when Hematocrit is >60 mg/dl,the test may not accurately detect significant hypoglycemia,and testing in the Laboratory should be considered if clinically indicated. Blood 04/16/2024 1:01 AM FIBERGLASS QUALITY TECHNICIAN 04/16/2024 1:01 AM FIBERGLASS QUALITY TECHNICIAN us Jaime Colin MD LAB POCT ORDERABLES - DE VICE Final Result Performing Organization Address [facility] de Phone Number [facility] [address] [place] [address] * Oxyhemoglobin, pulmonary artery (04/16/2024 12:22 AM FIBERGLASS QUALITY TECHNICIAN) Oxyhemoglobin, PA 67.4 % Comment: Interpretive Data No reference range established. Current interpretive data was last revised 2019. Blood 04/16/2024 12:2 2 AM FIBERGLASS QUALITY TECHNICIAN 04/16/2024 12:24 AM FIBERGLASS QUALITY TECHNICIAN us Aleshia Mckeon NP LAB BLOOD ORDERABLES F inal Result Performing Organization Address [facility] Co de Phone Number [facility] [address] [place] [address] * POCT glucose (04/16/2024 12:11 AM FIBERGLASS QUALITY TECHNICIAN) Glucose, POC 144 70 - 199 mg/dL Comment: For Glucose values <35 mg/dl when Hematocrit is >60 mg/dl,the test may not accurately detect significant hypoglycemia,and testing in the Laboratory should be considered if clinically indicated. Blood 04/16/2024 12:1 1 AM FIBERGLASS QUALITY TECHNICIAN 04/16/2024 12:11 AM FIBERGLASS QUALITY TECHNICIAN us Jaime Colin MD LAB POCT ORDERABLES - DE VICE Final Result [facility] [address] [place] [address] * (ABNORMAL) Lactate (04/16/2024 12:07 AM FIBERGLASS QUALITY TECHNICIAN) Lactate 2.6(H) 0.7 - 2.0 mmol/L Blood 04/16/2024 12:0 7 AM FIBERGLASS QUALITY TECHNICIAN 04/16/2024 12:24 AM FIBERGLASS QUALITY TECHNICIAN Aleshia Mckeon NP LAB BLOOD ORDERABLES F inal Result Performing Organization Address City/[facility]/ZIP Co de Phone Number [facility] [address] [place] [address] * eGFR (04/16/2024 12:07 AM FIBERGLASS QUALITY TECHNICIAN) eGFR 79 >=60 mL/min/1. 73 m2 Comment: [...] reviewed 2021. Blood 04/16/2024 12:0 7 AM FIBERGLASS QUALITY TECHNICIAN 04/16/2024 12:48 AM FIBERGLASS QUALITY TECHNICIAN Aleshia Mckeon DIRECTOR SURFACE TRANSPORTATION LAB BLOOD ORDERABLES F inal Result [facility] [address] [facility] [place] [address] * Calcium, ionized (04/16/2024 12:07 AM FIBERGLASS QUALITY TECHNICIAN) Pathologist [facility] Calcium, Ionized 4.91 4.50 - 5.10 mg/dL Blood 04/16/2024 12:0 7 AM FIBERGLASS QUALITY TECHNICIAN 04/16/2024 12:24 AM FIBERGLASS QUALITY TECHNICIAN Georgia Reddy DIRECTOR SURFACE TRANSPORTATION LAB BLOOD ORDERABLES Fin al Result Performing Organization Address [facility] Co de Phone Number [facility] [address] [place] [address] * (ABNORMAL) CBC without differential (04/16/2024 12:07 AM FIBERGLASS QUALITY TECHNICIAN) Pathologist [facility] WBC 12.9(H) 3.8 - 9.9 K/cumm Hgb 8.5(L) 13.0 - 17.5 g/dL [facility] Hct 26.0(L) 38.9 - 50.3 % [facility] Plt 108(L) 150 - 400 K/cumm [facility] MPV 11.3 9.1 - 12.3 fL [facility] RBC 2.77(L) 4.30 - 5.80 M/cumm [facility] MCV 93.9 81.3 - 96.4 fL [facility] MCH 30.7 27.1 - 33.3 pg [facility] MCHC 32.7 32.3 - 35.7 g/dL [facility] RDW CV 13.2 11.1 - 14.9 % [facility] RDW SD 44.9 35.7 - 48.1 fL [facility] NRBC abs 0.00 0.00 - 0.01 K/cumm [facility] Blood 04/16/2024 12:0 7 AM FIBERGLASS QUALITY TECHNICIAN 04/16/2024 12:48 AM FIBERGLASS QUALITY TECHNICIAN Georgia Reddy DIRECTOR SURFACE TRANSPORTATION LAB BLOOD ORDERABLES Fin al Result Performing Organization Address City/[facility]/ZIP Co de Phone Number [facility] [address] [place] [address] * Magnesium (04/16/2024 12:07 AM FIBERGLASS QUALITY TECHNICIAN) [facility] Magnesium 2.1 1.4 - 2.5 mg/dL Blood 04/16/2024 12:0 7 AM FIBERGLASS QUALITY TECHNICIAN 04/16/2024 12:48 AM FIBERGLASS QUALITY TECHNICIAN Georgia Galdamezmelvina Reddy DIRECTOR SURFACE TRANSPORTATION LAB BLOOD ORDERABLES Fin al Result Performing Organization Address [facility] de Phone Number [facility] [address] [facility] [place] [address] * (ABNORMAL) Renal function panel (04/16/2024 12:07 AM FIBERGLASS QUALITY TECHNICIAN) [facility] Sodium 144 135 - 145 mmol/L Potassium, pl 4.3 3.3 - 4.9 mmol/L [facility] Chloride 112(H) 97 - 110 mmol/L [facility] CO2 22 22 - 32 mmol/L [facility] Anion gap 10 2 - 15 mmol/L [facility] BUN 21 6 - 25 mg/dL [facility] Creatinine 1.08 0.80 - 1.30 mg/dL [facility] Glucose 136 70 - 199 mg/dL [facility] Comment: Interpretive Data Fasting glucose >/= 126 [...] 2022. Calcium 8.5 8.5 - 10.3 mg/dL [facility] Phosphorus, pl 3.6 2.3 - 4.5 mg/dL [facility] Albumin 3.2(L) 3.5 - 5.0 g/dL [facility] Blood 04/16/2024 12:0 7 AM FIBERGLASS QUALITY TECHNICIAN 04/16/2024 12:48 AM FIBERGLASS QUALITY TECHNICIAN Georgia Reddy NP LAB BLOOD ORDERABLES Fin al Result Performing Organization Address City/[facility]/ZIP Co de Phone Number [facility] [address] Department [place] [address] * POCT glucose (04/15/2024 11:06 PM FIBERGLASS QUALITY TECHNICIAN) [facility] Glucose, POC 129 70 - 199 mg/dL Comment: For Glucose values <35 mg/dl when Hematocrit is >60 mg/dl,the test may not accurately detect significant hypoglycemia,and testing in the Laboratory should be considered if clinically indicated. Blood 04/15/2024 11:0 6 PM FIBERGLASS QUALITY TECHNICIAN 04/15/2024 11:06 PM FIBERGLASS QUALITY TECHNICIAN Jaime Colin MD LAB POCT ORDERABLES - DE VICE Final Result Performing Organization Address [facility] Co de Phone Number [facility] [address] Department [place] [address] * Critical Care (04/15/2024 11:02 PM FIBERGLASS QUALITY TECHNICIAN) Narrative Suzi Garrett MD - 04/15/2024 11:02 PM FIBERGLASS QUALITY TECHNICIAN Aleshia Mckeon NP 04/16/2024 7:13 AM Critical Care Performed by: Aleshia Mckeon NP Authorized by: Aleshia Mckeon NP CRITICAL CARE: Team: [facility] CT Shift: PM Level of Billing: Critical [...] plan with the ICU team and other medical/tax credit leasing consultant staff, making frequent assessments and decisions [...] Result * POCT glucose (04/15/2024 9:53 PM FIBERGLASS QUALITY TECHNICIAN) Glucose, POC 145 70 - 199 mg/dL Comment: For Glucose values <35 mg/dl when Hematocrit is >60 mg/dl,the test may not accurately detect significant hypoglycemia,and testing in the Laboratory should be considered if clinically indicated. Blood 04/15/2024 9:53 PM FIBERGLASS QUALITY TECHNICIAN 04/15/2024 9:53 PM FIBERGLASS QUALITY TECHNICIAN Jaime Colin MD LAB POCT ORDERABLES - DE VICE Final Result Performing Organization Address [facility] de Phone Number [facility] [address] [place] [address] * POCT glucose (04/15/2024 8:59 PM FIBERGLASS QUALITY TECHNICIAN) Glucose, POC 147 70 - 199 mg/dL Comment: For Glucose values <35 mg/dl when Hematocrit is >60 mg/dl,the test may not accurately detect significant hypoglycemia,and testing in the Laboratory should be considered if clinically indicated. Blood 04/15/2024 8:59 PM FIBERGLASS QUALITY TECHNICIAN 04/15/2024 8:59 PM FIBERGLASS QUALITY TECHNICIAN Jaime Colin MD LAB POCT ORDERABLES - DE VICE Final Result Performing Organization Address City/State/[facility] Co de Phone Number [facility] [address] [place] [address] * POCT glucose (04/15/2024 8:04 PM FIBERGLASS QUALITY TECHNICIAN) [facility] Signature Glucose, POC 137 70 - 199 mg/dL Comment: For Glucose values <35 mg/dl when Hematocrit is >60 mg/dl,the test may not accurately detect significant hypoglycemia,and testing in the Laboratory should be considered if clinically indicated. Blood 04/15/2024 8:04 PM FIBERGLASS QUALITY TECHNICIAN 04/15/2024 8:04 PM FIBERGLASS QUALITY TECHNICIAN Jaime Colin MD LAB POCT ORDERABLES - DE VICE Final Result Performing Organization Address [facility] Co de Phone Number [facility] [address] Department [place] [address] * XR Chest 1 View - Portable (04/15/2024 7:09 PM FIBERGLASS QUALITY TECHNICIAN) Anatomical Region Laterality Modality Body, Chest N/A Computed Radiogr aphy 04/16/2024 7:03 AM FIBERGLASS QUALITY TECHNICIAN Impressions 04/16/2024 7:03 AM FIBERGLASS QUALITY TECHNICIAN Comparison with 04/14/20242024. Trace pulmonary edema stable. Endotracheal tube has its tip 4 cm above the magaly. Nasogastric tube projects below the hemidiaphragm. Kelso-Gaston catheter projects over the main pulmonary artery. Central venous catheter projects over the superior vena cava. There is no pneumothorax. Sternal wires midline and nondisplaced. Electronically signed by: Alexander Evangelista M.D., MPH Narrative 04/16/2024 7:03 AM FIBERGLASS QUALITY TECHNICIAN EXAMINATION: 1 view chest radiograph Procedure Note Alexander Evangelista MD - 04/16/2024 EXAMINATION: 1 view chest radiograph IMPRESSION: Comparison with 04/14/20242024. Trace pulmonary edema stable. Endotracheal tube has its tip 4 cm above the magaly. Nasogastric tube projects below the hemidiaphragm. Kelso-Gaston catheter projects over the main pulmonary artery. Central venous catheter projects over the superior vena cava. There is no pneumothorax. Sternal wires midline and nondisplaced. Electronically signed by: Alexander Evangelista M.D., MPH Aleshia Mckeon NP IMG XR PROCEDURES Gail l Result * eGFR (04/15/2024 7:06 PM FIBERGLASS QUALITY TECHNICIAN) eGFR 71 >=60 mL/min/1. 73 m2 Comment: [...] last reviewed 2021. Blood 04/15/2024 7:06 PM FIBERGLASS QUALITY TECHNICIAN 04/15/2024 7:21 PM FIBERGLASS QUALITY TECHNICIAN Aleshia Mckeon NP LAB BLOOD ORDERABLES F inal Result [facility] [address] Department [place] [address] * Phosphorus (04/15/2024 7:06 PM FIBERGLASS QUALITY TECHNICIAN) Pathologist [facility] Phosphorus, pl 3.1 2.3 - 4.5 mg/dL Blood 04/15/2024 7:06 PM FIBERGLASS QUALITY TECHNICIAN 04/15/2024 7:21 PM FIBERGLASS QUALITY TECHNICIAN Aleshiageorges Mckeon DIRECTOR SURFACE TRANSPORTATION LAB BLOOD ORDERABLES F inal Result Performing Organization Address [facility] Co de Phone Number [facility] [address] [facility] [place] [employer] [place] [address] * Magnesium (04/15/2024 7:06 PM FIBERGLASS QUALITY TECHNICIAN) [facility] Magnesium 2.3 1.4 - 2.5 mg/dL Blood 04/15/2024 7:06 PM FIBERGLASS QUALITY TECHNICIAN 04/15/2024 7:21 PM FIBERGLASS QUALITY TECHNICIAN Aleshia Liz Mckeon DIRECTOR SURFACE TRANSPORTATION LAB BLOOD ORDERABLES F inal Result Performing Organization Address [facility] de Phone Number [facility] [address] [facility] [employer] [place], [place] [id number] * Bilirubin, direct (04/15/2024 7:06 PM FIBERGLASS QUALITY TECHNICIAN) [facility] Bilirubin, direct 0.3 0.1 - 0.3 mg/dL Comment:Slightly Hemolyzed S pecimen Blood 04/15/2024 7:06 PM F[employer]ERGLASS QUALITY TECHNICIAN 04/15/2024 7:21 PM FIBERGLASS QUALITY TECHNICIAN Aleshia Liz Mckeon NP LAB BLOOD ORDERABLES F inal Result Performing Organization Address [facility] Co de Phone Number [facility] [address] [facility] [employer] [place], [place] [id number] * (ABNORMAL) Comprehensive metabolic panel (04/15/2024 7:06 PM FIBERGLASS QUALITY TECHNICIAN) [facility] Sodium 144 135 - 145 mmol/L Potassium, pl 5.2(H) 3.3 - 4.9 mmol/L [facility] Chloride 111(H) 97 - 110 mmol/L [facility] CO2 23 22 - 32 mmol/L [facility] Anion gap 10 2 - 15 mmol/L [facility] BUN 21 6 - 25 mg/dL [facility] Creatinine 1.18 0.80 - 1.30 mg/dL [facility] Glucose 139 70 - 199 mg/dL [facility] Comment: Interpretive Data Fasting glucose >/= 126 [...] 2022. Calcium 7.6(L) 8.5 - 10.3 mg/dL [facility] Bilirubin, total 0.7 0.1 - 1.2 mg/dL [facility] Protein, pl 4.7(L) 6.5 - 8.5 g/dL [facility] Albumin 2.6(L) 3.5 - 5.0 g/dL [facility] Alk phos 27(L) 40 - 130 Units/L [facility] ALT 23 7 - 55 Units/L [facility] AST 58(H) 10 - 50 Units/L [facility] Comment:Slightly Hemolyzed S pecimen Blood 04/15/2024 7:06 PM FIBERGLASS QUALITY TECHNICIAN 04/15/2024 7:21 PM FIBERGLASS QUALITY TECHNICIAN Aleshia Mckeon NP LAB BLOOD ORDERABLES F inal Result [facility] [address] Department [place] [address] * (ABNORMAL) Lactate (04/15/2024 6:46 PM FIBERGLASS QUALITY TECHNICIAN) Lactate 2.9(H) 0.7 - 2.0 mmol/L Blood 04/15/2024 6:46 PM F[employer]ERGLASS QUALITY TECHNICIAN 04/15/2024 6:53 PM FIBERGLASS QUALITY TECHNICIAN Aleshia Mckeon NP LAB BLOOD ORDERABLES F inal Result Performing Organization Address [facility] Co de Phone Number [facility] [address] [facility] [place] [employer] [place] [address] * Calcium, ionized (04/15/2024 6:46 PM FIBERGLASS QUALITY TECHNICIAN) Calcium, Ionized 4.56 4.50 - 5.10 mg/dL Blood 04/15/2024 6:46 PM F[employer]ERGLASS QUALITY TECHNICIAN 04/15/2024 6:54 PM F[employer]ERGLASS QUALITY TECHNICIAN Aleshia Liz Mckeon NP LAB BLOOD ORDERABLES F inal Result Performing Organization Address [facility] de Phone Number [facility] [address] [facility] [employer] [place], [place] [id number] * aPTT (04/15/2024 6:46 PM FIBERGLASS QUALITY TECHNICIAN) Pathologist [facility] aPTT 29 28 - 38 sec Comment: Interpretive Data Heparin therapeutic range: 66.0 - 100.0 seconds. Range based on correlation with therapeutic heparin activity range of 0.3 - 0.7 Units/mL. Current interpretive data was last revised on 2023. Blood 04/15/2024 6:46 PM F[employer]ERGLASS QUALITY TECHNICIAN 04/15/2024 7:20 PM FIBERGLASS QUALITY TECHNICIAN Aleshia Liz Mckeon NP LAB BLOOD ORDERABLES F inal Result Performing Organization Address [facility] de Phone Number [facility] [address] Department [employer] [place], [place] [phone] * Protime-INR (04/15/2024 6:46 PM FIBERGLASS QUALITY TECHNICIAN) PT 13.0 9.7 - 13.0 sec INR 1.20 0.90 - 1.20 [facility] Comment: Interpretive data Oral anticoagulant therapeutic ranges: Venous thromboembolism prophylaxis or treatment: 2.0-3.0 CARDIOLOGY Standard range: 2.0-3.0 High-intensity range: 2.5-3.5 Refer to indication-specific guidelines for appropriate target ranges for prosthetic heart valve replacement. Current interpretive data was last revised on 2019. Blood 04/15/2024 6:46 PM FIBERGLASS QUALITY TECHNICIAN 04/15/2024 7:20 PM FIBERGLASS QUALITY TECHNICIAN Aleshia Mckeon NP LAB BLOOD ORDERABLES F inal Result Performing Organization Address [facility] Co de Phone Number [facility] [address] [place] [place] [address] * Fibrinogen (04/15/2024 6:46 PM FIBERGLASS QUALITY TECHNICIAN) [facility] Fibrinogen 184 170 - 400 mg/dL Blood 04/15/2024 6:46 PM FIBERGLASS QUALITY TECHNICIAN 04/15/2024 6:46 PM FIBERGLASS QUALITY TECHNICIAN Jaime Colin MD LAB BLOOD ORDERABLES Fin al Result Performing Organization Address [facility] de Phone Number [facility] [address] [place] [facility] [place] [address] * (ABNORMAL) CBC without differential (04/15/2024 6:46 PM FIBERGLASS QUALITY TECHNICIAN) [facility] WBC 13.4(H) 3.8 - 9.9 K/cumm Hgb 9.4(L) 13.0 - 17.5 g/dL [facility] Hct 27.8(L) 38.9 - 50.3 % [facility] Plt 122(L) 150 - 400 K/cumm [facility] MPV 10.5 9.1 - 12.3 fL [facility] RBC 3.10(L) 4.30 - 5.80 M/cumm [facility] MCV 89.7 81.3 - 96.4 fL [facility] MCH 30.3 27.1 - 33.3 pg [facility] MCHC 33.8 32.3 - 35.7 g/dL [facility] RDW CV 12.9 11.1 - 14.9 % [facility] RDW SD 42.4 35.7 - 48.1 fL [facility] NRBC abs 0.00 0.00 - 0.01 K/cumm [facility] Blood 04/15/2024 6:46 PM FIBERGLASS QUALITY TECHNICIAN 04/15/2024 7:20 PM FIBERGLASS QUALITY TECHNICIAN Aleshia Mckeon DIRECTOR SURFACE TRANSPORTATION LAB BLOOD ORDERABLES F inal Result Performing Organization Address [facility] de Phone Number [facility] [address] Department [place] [address] * (ABNORMAL) Blood gas, arterial (04/15/2024 6:46 PM FIBERGLASS QUALITY TECHNICIAN) pH, Art 7.36 7.35 - 7.45 PCO2, Arterial 41 35 - 45 mmHg [facility] PO2, Arterial 170(H) 83 - 108 mmHg [facility] HCO3 Art (Calculated) 23 20 - 30 mmol/L [facility] BE, art -2 mmol/L [facility] Comment: Interpretive Data No Reference Range Established Current Interpretive Data was last revised on 2017 O2 Sat Art (Calculated) 100(H) 94 - 98 % [facility] Blood 04/15/2024 6:46 PM FIBERGLASS QUALITY TECHNICIAN 04/15/2024 6:54 PM FIBERGLASS QUALITY TECHNICIAN Aleshia Mckeon NP LAB BLOOD ORDERABLES F inal Result Performing Organization Address [facility] Co de Phone Number [facility] [address] [place] [address] * POCT glucose (04/15/2024 6:35 PM FIBERGLASS QUALITY TECHNICIAN) Glucose, POC 137 70 - 199 mg/dL Comment: For Glucose values <35 mg/dl when Hematocrit is >60 mg/dl,the test may not accurately detect significant hypoglycemia,and testing in the Laboratory should be considered if clinically indicated. Blood 04/15/2024 6:35 PM F[employer]ERGLASS QUALITY TECHNICIAN 04/15/2024 6:35 PM FIBERGLASS QUALITY TECHNICIAN us Chico Rfuf MD LAB POCT ORDERABLES - DEVICE Final Result Performing Organization Address [facility] Co de Phone Number [facility] [address] [facility] [place] [employer] [place] [address] * aPTT (04/15/2024 5:40 PM FIBERGLASS QUALITY TECHNICIAN) aPTT 31 28 - 38 sec Comment: Interpretive Data Heparin therapeutic range: 66.0 - 100.0 seconds. Range based on correlation with therapeutic heparin activity range of 0.3 - 0.7 Units/mL. Current interpretive data was last revised on 2023. Blood 04/15/2024 5:40 PM FIBERGLASS QUALITY TECHNICIAN 04/15/2024 5:45 PM FIBERGLASS QUALITY TECHNICIAN Result [facility] Jaime Colin MD LAB BLOOD ORDERABLES Fin al Result Performing Organization Address [facility] de Phone Number [facility] [address] [facility] [place] [employer] [place] [address] * (ABNORMAL) Protime-INR (04/15/2024 5:40 PM FIBERGLASS QUALITY TECHNICIAN) PT 16.0(H) 9.7 - 13.0 sec INR 1.47(H) 0.90 - 1.20 [facility] Comment: Interpretive data Oral anticoagulant therapeutic ranges: Venous thromboembolism prophylaxis or treatment: 2.0-3.0 CARDIOLOGY Standard range: 2.0-3.0 High-intensity range: 2.5-3.5 Refer to indication-specific guidelines for appropriate target ranges for prosthetic heart valve replacement. Current interpretive data was last revised on 2019. Blood 04/15/2024 5:40 PM FIBERGLASS QUALITY TECHNICIAN 04/15/2024 5:45 PM FIBERGLASS QUALITY TECHNICIAN Result [facility] Jaime Colin MD LAB BLOOD ORDERABLES Fin al Result Performing Organization Address [facility] Co de Phone Number [facility] [address] [facility] [place] [employer] [place] [address] * Fibrinogen (04/15/2024 5:40 PM FIBERGLASS QUALITY TECHNICIAN) Fibrinogen 193 170 - 400 mg/dL Blood 04/15/2024 5:40 PM FIBERGLASS QUALITY TECHNICIAN 04/15/2024 5:45 PM FIBERGLASS QUALITY TECHNICIAN Jaime Colin MD LAB BLOOD ORDERABLES Fin al Result Performing Organization Address [facility] de Phone Number [facility] [address] [place] [address] * (ABNORMAL) CBC without differential (04/15/2024 5:40 PM FIBERGLASS QUALITY TECHNICIAN) [facility] WBC 16.4(H) 3.8 - 9.9 K/cumm Hgb 8.6(L) 13.0 - 17.5 g/dL [facility] Comment:Hemoglobin delta due to surgical procedure. Hct 26.0(L) 38.9 - 50.3 % [facility] Plt 138(L) 150 - 400 K/cumm [facility] MPV 11.1 9.1 - 12.3 fL [facility] RBC 2.83(L) 4.30 - 5.80 M/cumm [facility] MCV 91.9 81.3 - 96.4 fL [facility] MCH 30.4 27.1 - 33.3 pg [facility] MCHC 33.1 32.3 - 35.7 g/dL [facility] RDW CV 12.9 11.1 - 14.9 % [facility] RDW SD 42.8 35.7 - 48.1 fL [facility] NRBC abs 0.00 0.00 - 0.01 K/cumm [facility] Blood 04/15/2024 5:40 PM FIBERGLASS QUALITY TECHNICIAN 04/15/2024 5:45 PM FIBERGLASS QUALITY TECHNICIAN Jaime Colin MD LAB BLOOD ORDERABLES Fin al Result Performing Organization Address [facility] Co de Phone Number [facility] [address] [place] [address] * POCT glucose (04/15/2024 5:28 PM FIBERGLASS QUALITY TECHNICIAN) [facility] Glucose, POC 156 70 - 199 mg/dL Comment: For Glucose values <35 mg/dl when Hematocrit is >60 mg/dl,the test may not accurately detect significant hypoglycemia,and testing in the Laboratory should be considered if clinically indicated. Blood 04/15/2024 5:28 PM FIBERGLASS QUALITY TECHNICIAN 04/15/2024 5:28 PM FIBERGLASS QUALITY TECHNICIAN us Chico Ruff MD LAB POCT ORDERABLES - DEVICE Final Result Performing Organization Address [facility]/ZIP Co de Phone Number [facility] [address] [facility] [place] [employer] [place] [address] * Prepare RBC (04/15/2024 5:28 PM FIBERGLASS QUALITY TECHNICIAN) [facility] Product code [id number] Unit Number [id number] [facility] Product Blood Type OPOS [facility] Dispense Status PRESUMED TRANSFUSED [facility] Product code [id number] [facility] Unit Number [id number] [facility] Product Blood Type OPOS [facility] Dispense Status PRESUMED TRANSFUSED [facility] Blood 04/15/2024 5:28 PM FIBERGLASS QUALITY TECHNICIAN 04/15/2024 5:28 PM FIBERGLASS QUALITY TECHNICIAN us Chico Ruff MD BLOOD BANK PRODUCT ORDERABLES Final Result Performing Organization Address [facility] Co de Phone Number [facility] [address] [place] [place] [address] * POC Activated Clotting Time, High Range (04/15/2024 5:16 PM FIBERGLASS QUALITY TECHNICIAN) [facility] ACT 102 87 - 138 sec Blood 04/15/2024 5:16 PM FIBERGLASS QUALITY TECHNICIAN 04/15/2024 5:16 PM FIBERGLASS QUALITY TECHNICIAN us Chico Ruff MD LAB BLOOD ORDERABLES Final Re sult [facility] [address] [place] [address] * (ABNORMAL) POC Blood Gas and Chemistries, Arterial - (04/15/2024 5:16 PM FIBERGLASS QUALITY TECHNICIAN) pH, Art POC 7.34(L) 7.35 - 7.45 pCO2, Art POC 42 35 - 45 mmHg [facility] pO2, Art POC 106 80 - 108 mmHg [facility] Na, POC 138 135 - 145 mmol/L [facility] K POC 5.4(H) 3.3 - 4.9 mmol/L [facility] Comment: Interpretive Data This method is not able to assess for hemolysis, which may falsely increase potassium concentrations. If further testing is needed to evaluate this result, consider in-laboratory plasma potassium. Current Interpretive Data was last revised on 2021. Cl, POC 112(H) 97 - 110 mmol/L [facility] Ionized Ca, POC 4.90 4.50 - 5.10 mg/dL [facility] Glucose, POC 167 70 - 199 mg/dL [facility] Lactate, POC 2.5(H) 0.0 - 2.0 mmol/L [facility] O2Hb, Art POC 96.8(H) 90.0 - 95.0 % [facility] Carboxhgb fract 0.6 0.0 - 2.9 % [facility] Methemoglobin 0.9 0.0 - 1.9 % [facility] HHb, POC 1.7 0.0 - 5.0 % [facility] SO2 (renny) arterial 98(H) 90 - 95 % [facility] Total CO2, Art POC 24 22 - 32 mmol/L [facility] BE, art, POC -2.9(L) -2.0 - 2.0 mmol/L [facility] HCO3, Art POC 23 20 - 30 mmol/L [facility] Hct, POC 26.0(L) 38.9 - 50.3 % [facility] Total Hb, POC 8.8(L) 13.0 - 17.5 g/dL [facility] Blood 04/15/2024 5:16 PM FIBERGLASS QUALITY TECHNICIAN 04/15/2024 5:16 PM FIBERGLASS QUALITY TECHNICIAN us Chico Ruff MD LAB POCT ORDERABLES - DEVICE Final Result [facility] [address] Department [place] [address] * (ABNORMAL) POC Blood Gas and Chemistries, Arterial - (04/15/2024 4:47 PM FIBERGLASS QUALITY TECHNICIAN) [facility] pH, Art POC 7.36 7.35 - 7.45 pCO2, Art POC 45 35 - 45 mmHg [facility] pO2, Art POC 255(H) 80 - 108 mmHg [facility] Na, POC 139 135 - 145 mmol/L [facility] K POC 5.2(H) 3.3 - 4.9 mmol/L [facility] Comment: Interpretive Data This method is not able to assess for hemolysis, which may falsely increase potassium concentrations. If further testing is needed to evaluate this result, consider in-laboratory plasma potassium. Current Interpretive Data was last revised on 2021. Cl, POC 113(H) 97 - 110 mmol/L [facility] Ionized Ca, POC 4.90 4.50 - 5.10 mg/dL [facility] Glucose, POC 123 70 - 199 mg/dL [facility] Lactate, POC 2.5(H) 0.0 - 2.0 mmol/L [facility] O2Hb, Art POC 97.9(H) 90.0 - 95.0 % [facility] Carboxhgb fract 0.8 0.0 - 2.9 % [facility] Methemoglobin 1.0 0.0 - 1.9 % [facility] HHb, POC 0.3 0.0 - 5.0 % [facility] SO2 (renny) arterial 100(H) 90 - 95 % [facility] Total CO2, Art POC 27 22 - 32 mmol/L [facility] BE, art, POC -0.2 -2.0 - 2.0 mmol/L [facility] HCO3, Art POC 25 20 - 30 mmol/L [facility] Hct, POC 26.0(L) 38.9 - 50.3 % [facility] Total Hb, POC 8.6(L) 13.0 - 17.5 g/dL [facility] Blood 04/15/2024 4:47 PM FIBERGLASS QUALITY TECHNICIAN 04/15/2024 4:47 PM FIBERGLASS QUALITY TECHNICIAN us Chico Ruff MD LAB POCT ORDERABLES - DEVICE Final Result Performing Organization Address [facility]/ZIP Co de Phone Number [facility] [address] [place] [place] [address] * (ABNORMAL) POC Activated Clotting Time, High Range (04/15/2024 4:46 PM FIBERGLASS QUALITY TECHNICIAN) ACT 539(H) 87 - 138 sec Blood 04/15/2024 4:46 PM FIBERGLASS QUALITY TECHNICIAN 04/15/2024 4:46 PM FIBERGLASS QUALITY TECHNICIAN Chico Ruff MD LAB BLOOD ORDERABLES Final Re sult Performing Organization Address City/[facility]/ZIP Co de Phone Number [facility] [address] [place] [place] [address] * (ABNORMAL) POC Blood Gas and Chemistries, Arterial - (04/15/2024 4:03 PM FIBERGLASS QUALITY TECHNICIAN) Pathologist [facility] pH, Art POC 7.33(L) 7.35 - 7.45 pCO2, Art POC 48(H) 35 - 45 mmHg [facility] pO2, Art POC 386(H) 80 - 108 mmHg [facility] Na, POC 138 135 - 145 mmol/L [facility] K POC 6.2(C) 3.3 - 4.9 mmol/L [facility] Comment: Interpretive Data This method is not able to assess for hemolysis, which may falsely increase potassium concentrations. If further testing is needed to evaluate this result, consider in-laboratory plasma potassium. Current Interpretive Data was last revised on 2021. Cl, POC 109 97 - 110 mmol/L [facility] Ionized Ca, POC 4.43(L) 4.50 - 5.10 mg/dL [facility] Glucose, POC 136 70 - 199 mg/dL [facility] Lactate, POC 2.7(H) 0.0 - 2.0 mmol/L [facility] O2Hb, Art POC 97.8(H) 90.0 - 95.0 % [facility] Carboxhgb fract 0.8 0.0 - 2.9 % [facility] Methemoglobin 1.1 0.0 - 1.9 % [facility] HHb, POC 0.3 0.0 - 5.0 % [facility] SO2 (renny) arterial 100(H) 90 - 95 % [facility] Total CO2, Art POC 27 22 - 32 mmol/L [facility] BE, art, POC -0.8 -2.0 - 2.0 mmol/L [facility] HCO3, Art POC 24 20 - 30 mmol/L [facility] Hct, POC 26.0(L) 38.9 - 50.3 % [facility] Total Hb, POC 8.8(L) 13.0 - 17.5 g/dL [facility] Blood 04/15/2024 4:03 PM FIBERGLASS QUALITY TECHNICIAN 04/15/2024 4:03 PM FIBERGLASS QUALITY TECHNICIAN Chico Ruff MD LAB POCT ORDERABLES - DEVICE Final Result Performing Organization Address [facility]/ZIP Co de Phone Number [facility] [address] [place] [place] [address] * (ABNORMAL) POC Activated Clotting Time, High Range (04/15/2024 4:02 PM FIBERGLASS QUALITY TECHNICIAN) ACT 529(H) 87 - 138 sec Blood 04/15/2024 4:02 PM FIBERGLASS QUALITY TECHNICIAN 04/15/2024 4:02 PM FIBERGLASS QUALITY TECHNICIAN us Chico Ruff MD LAB BLOOD ORDERABLES Final Re sult Performing Organization Address [facility]/ZIP Co de Phone Number [facility] [address] [place] [address] * (ABNORMAL) POC Blood Gas and Chemistries, Arterial - (04/15/2024 3:31 PM FIBERGLASS QUALITY TECHNICIAN) pH, Art POC 7.34(L) 7.35 - 7.45 pCO2, Art POC 46(H) 35 - 45 mmHg [facility] pO2, Art POC 339(H) 80 - 108 mmHg [facility] Na, POC 137 135 - 145 mmol/L [facility] K POC 5.5(H) 3.3 - 4.9 mmol/L [facility] Comment: Interpretive Data This method is not able to assess for hemolysis, which may falsely increase potassium concentrations. If further testing is needed to evaluate this result, consider in-laboratory plasma potassium. Current Interpretive Data was last revised on 2021. Cl, POC 109 97 - 110 mmol/L [facility] Ionized Ca, POC 4.36(L) 4.50 - 5.10 mg/dL [facility] Glucose, POC 150 70 - 199 mg/dL [facility] Lactate, POC 2.3(H) 0.0 - 2.0 mmol/L [facility] O2Hb, Art POC 97.6(H) 90.0 - 95.0 % [facility] Carboxhgb fract 0.2 0.0 - 2.9 % [facility] Methemoglobin 1.0 0.0 - 1.9 % [facility] HHb, POC 1.2 0.0 - 5.0 % [facility] SO2 (renny) arterial 99(H) 90 - 95 % [facility] Total CO2, Art POC 26 22 - 32 mmol/L [facility] BE, art, POC -1.1 -2.0 - 2.0 mmol/L [facility] HCO3, Art POC 24 20 - 30 mmol/L [facility] Hct, POC 28.0(L) 38.9 - 50.3 % [facility] Total Hb, POC 9.2(L) 13.0 - 17.5 g/dL [facility] Blood 04/15/2024 3:31 PM FIBERGLASS QUALITY TECHNICIAN 04/15/2024 3:31 PM FIBERGLASS QUALITY TECHNICIAN us Chico Ruff MD LAB POCT ORDERABLES - DEVICE Final Result [facility] [address] [facility] [place] [employer] [place] [address] * (ABNORMAL) POC Activated Clotting Time, High Range (04/15/2024 3:30 PM FIBERGLASS QUALITY TECHNICIAN) [facility] ACT 658(H) 87 - 138 sec Blood 04/15/2024 3:30 PM FIBERGLASS QUALITY TECHNICIAN 04/15/2024 3:30 PM FIBERGLASS QUALITY TECHNICIAN Chico Ruff MD LAB BLOOD ORDERABLES Final Re sult Performing Organization Address [facility]/ZIP Co de Phone Number [facility] [address] [place] [place] [address] * (ABNORMAL) POC Blood Gas and Chemistries, Arterial - (04/15/2024 3:03 PM FIBERGLASS QUALITY TECHNICIAN) [facility] pH, Art POC 7.42 7.35 - 7.45 pCO2, Art POC 43 35 - 45 mmHg [facility] pO2, Art POC 358(H) 80 - 108 mmHg [facility] Na, POC 136 135 - 145 mmol/L [facility] K POC 5.7(H) 3.3 - 4.9 mmol/L [facility] Comment: Interpretive Data This method is not able to assess for hemolysis, which may falsely increase potassium concentrations. If further testing is needed to evaluate this result, consider in-laboratory plasma potassium. Current Interpretive Data was last revised on 2021. Cl, POC 107 97 - 110 mmol/L [facility] Ionized Ca, POC 4.34(L) 4.50 - 5.10 mg/dL [facility] Glucose, POC 158 70 - 199 mg/dL [facility] Lactate, POC 2.2(H) 0.0 - 2.0 mmol/L [facility] O2Hb, Art POC 98.0(H) 90.0 - 95.0 % [facility] Carboxhgb fract 0.5 0.0 - 2.9 % [facility] Methemoglobin 0.8 0.0 - 1.9 % [facility] HHb, POC 0.8 0.0 - 5.0 % [facility] SO2 (renny) arterial 99(H) 90 - 95 % [facility] Total CO2, Art POC 29 22 - 32 mmol/L [facility] BE, art, POC 3.1(H) -2.0 - 2.0 mmol/L [facility] HCO3, Art POC 27 20 - 30 mmol/L [facility] Hct, POC 29.0(L) 38.9 - 50.3 % [facility] Total Hb, POC 9.5(L) 13.0 - 17.5 g/dL [facility] Blood 04/15/2024 3:03 PM FIBERGLASS QUALITY TECHNICIAN 04/15/2024 3:03 PM FIBERGLASS QUALITY TECHNICIAN us Chico Ruff MD LAB POCT ORDERABLES - DEVICE Final Result Performing Organization Address [facility]/ZIP Co de Phone Number [facility] [address] [employer] [place], [place] [id number] * (ABNORMAL) POC Activated Clotting Time, High Range (04/15/2024 3:02 PM [employer]ER[employer] QUALITY TECHNICIAN) ACT 524(H) 87 - 138 sec Blood 04/15/2024 3:02 PM [employer] QUALITY TECHNICIAN 04/15/2024 3:02 PM [employer] QUALITY TECHNICIAN us [place] Ruff MD LAB BLOOD ORDERABLES Final Re sult [facility] [address] [place] [place] [address] * (ABNORMAL) POC Blood Gas and Chemistries, Arterial - (04/15/2024 2:27 PM [employer] QUALITY TECHNICIAN) pH, Art POC 7.35 7.35 - 7.45 pCO2, Art POC 43 35 - 45 mmHg [facility] pO2, Art POC 318(H) 80 - 108 mmHg [facility] Na, POC 136 135 - 145 mmol/L [facility] K POC 5.7(H) 3.3 - 4.9 mmol/L [facility] Comment: Interpretive Data This method is not able to assess for hemolysis, which may falsely increase potassium concentrations. If further testing is needed to evaluate this result, consider in-laboratory plasma potassium. Current Interpretive Data was last revised on 2021. Cl, POC 108 97 - 110 mmol/L [facility] Ionized Ca, POC 4.66 4.50 - 5.10 mg/dL [facility] Glucose, POC 162 70 - 199 mg/dL [facility] Lactate, POC 1.8 0.0 - 2.0 mmol/L [facility] O2Hb, Art POC 98.0(H) 90.0 - 95.0 % [facility] Carboxhgb fract 0.3 0.0 - 2.9 % [facility] Methemoglobin 1.0 0.0 - 1.9 % [facility] HHb, POC 0.7 0.0 - 5.0 % [facility] SO2 (renny) arterial 99(H) 90 - 95 % [facility] Total CO2, Art POC 25 22 - 32 mmol/L [facility] BE, art, POC -1.9 -2.0 - 2.0 mmol/L [facility] HCO3, Art POC 24 20 - 30 mmol/L [facility] Hct, POC 29.0(L) 38.9 - 50.3 % [facility] Total Hb, POC 9.5(L) 13.0 - 17.5 g/dL [facility] Blood 04/15/2024 2:27 PM F[employer]ERGLASS QUALITY TECHNICIAN 04/15/2024 2:27 PM FIBERGLASS QUALITY TECHNICIAN us Chico Ruff MD LAB POCT ORDERABLES - DEVICE Final Result [facility] [address] [place] [address] * (ABNORMAL) POC Activated Clotting Time, High Range (04/15/2024 2:26 PM FIBERGLASS QUALITY TECHNICIAN) ACT 480(H) 87 - 138 sec Blood 04/15/2024 2:26 PM [employer]ER[employer] QUALITY TECHNICIAN 04/15/2024 2:26 PM F[employer]ERGLASS QUALITY TECHNICIAN Chico Ruff MD LAB BLOOD ORDERABLES Final Re sult [facility] [address] Department [place] [address] * (ABNORMAL) POC Blood Gas and Chemistries, Arterial - (04/15/2024 2:00 PM F[employer]ERGLASS QUALITY TECHNICIAN) pH, Art POC 7.35 7.35 - 7.45 pCO2, Art POC 42 35 - 45 mmHg [facility] pO2, Art POC 250(H) 80 - 108 mmHg [facility] Na, POC 135 135 - 145 mmol/L [facility] K POC 5.7(H) 3.3 - 4.9 mmol/L [facility] Comment: Interpretive Data This method is not able to assess for hemolysis, which may falsely increase potassium concentrations. If further testing is needed to evaluate this result, consider in-laboratory plasma potassium. Current Interpretive Data was last revised on 2021. Cl, POC 108 97 - 110 mmol/L [facility] Ionized Ca, POC 4.65 4.50 - 5.10 mg/dL [facility] Glucose, POC 149 70 - 199 mg/dL [facility] Lactate, POC 1.9 0.0 - 2.0 mmol/L [facility] O2Hb, Art POC 98.1(H) 90.0 - 95.0 % [facility] Carboxhgb fract 0.3 0.0 - 2.9 % [facility] Methemoglobin 0.8 0.0 - 1.9 % [facility] HHb, POC 0.7 0.0 - 5.0 % [facility] SO2 (renny) arterial 99(H) 90 - 95 % [facility] Total CO2, Art POC 24 22 - 32 mmol/L [facility] BE, art, POC -2.3(L) -2.0 - 2.0 mmol/L [facility] HCO3, Art POC 23 20 - 30 mmol/L [facility] Hct, POC 29.0(L) 38.9 - 50.3 % [facility] Total Hb, POC 9.6(L) 13.0 - 17.5 g/dL [facility] Blood 04/15/2024 2:00 PM F[employer]ERGLASS QUALITY TECHNICIAN 04/15/2024 2:00 PM F[employer]ERGLASS QUALITY TECHNICIAN Chico Ruff MD LAB POCT ORDERABLES - DEVICE Final Result Performing Organization Address [facility]/ZIP Co de Phone Number [facility] [address] [place] [place] [address] * (ABNORMAL) POC Activated Clotting Time, High Range (04/15/2024 1:59 PM FIBERGLASS QUALITY TECHNICIAN) Pathologist [facility] ACT 478(H) 87 - 138 sec Blood 04/15/2024 1:59 PM F[employer]ERGLASS QUALITY TECHNICIAN 04/15/2024 1:59 PM F[employer]ERGLASS QUALITY TECHNICIAN Chico Ruff MD LAB BLOOD ORDERABLES Final Re sult Performing Organization Address [facility] Co de Phone Number [facility] [address] [place] [address] * (ABNORMAL) POC Blood Gas and Chemistries, Venous - (04/15/2024 1:41 PM F[employer]ERGLASS QUALITY TECHNICIAN) Pathologist [facility] pH, Boubacar POC 7.30(L) 7.32 - 7.45 pCO2, boubacar POC 51(H) 40 - 50 mmHg [facility] pO2, boubacar POC 48(H) 35 - 42 mmHg [facility] Na, POC 136 135 - 145 mmol/L [facility] K POC 5.4(H) 3.3 - 4.9 mmol/L [facility] Comment: Interpretive Data This method is not able to assess for hemolysis, which may falsely increase potassium concentrations. If further testing is needed to evaluate this result, consider in-laboratory plasma potassium. Current Interpretive Data was last revised on 2021. Cl, POC 108 97 - 110 mmol/L [facility] Ionized Ca, POC 4.69 4.50 - 5.10 mg/dL [facility] Glucose, POC 124 70 - 199 mg/dL [facility] Lactate, POC 1.7 0.0 - 2.0 mmol/L [facility] O2Hb, Boubacar POC 79.3(L) 90.0 - 95.0 % [facility] Carboxhgb fract 0.7 0.0 - 2.9 % [facility] Methemoglobin 0.7 0.0 - 1.9 % [facility] HHb, POC 19.3(H) 0.0 - 5.0 % [facility] O2 Sat, Boubacar POC (Renny) 80(H) 68 - 77 % [facility] Total CO2, boubacar POC 27 22 - 32 mmol/L [facility] Base excess, boubacar POC -1.6 mmol/L [facility] HCO3, Boubacar POC 23 20 - 30 mmol/L [facility] Hct, POC 29.0(L) 38.9 - 50.3 % [facility] Total Hb, POC 9.8(L) 13.0 - 17.5 g/dL [facility] Blood 04/15/2024 1:41 PM F[employer]ERGLASS QUALITY TECHNICIAN 04/15/2024 1:41 PM F[employer]ERGLASS QUALITY TECHNICIAN Chico Ruff MD LAB POCT ORDERABLES - DEVICE Final Result [facility] [address] Department [place] [address] * (ABNORMAL) POC Blood Gas and Chemistries, Arterial - (04/15/2024 1:33 PM FIBERGLASS QUALITY TECHNICIAN) pH, Art POC 7.36 7.35 - 7.45 pCO2, Art POC 47(H) 35 - 45 mmHg [facility] pO2, Art POC 393(H) 80 - 108 mmHg [facility] Na, POC 136 135 - 145 mmol/L [facility] K POC 5.6(H) 3.3 - 4.9 mmol/L [facility] Comment: Interpretive Data This method is not able to assess for hemolysis, which may falsely increase potassium concentrations. If further testing is needed to evaluate this result, consider in-laboratory plasma potassium. Current Interpretive Data was last revised on 2021. Cl, POC 109 97 - 110 mmol/L [facility] Ionized Ca, POC 4.64 4.50 - 5.10 mg/dL [facility] Glucose, POC 133 70 - 199 mg/dL [facility] Lactate, POC 1.8 0.0 - 2.0 mmol/L [facility] O2Hb, Art POC 98.9(H) 90.0 - 95.0 % [facility] Carboxhgb fract 0.4 0.0 - 2.9 % [facility] Methemoglobin 0.4 0.0 - 1.9 % [facility] HHb, POC 0.3 0.0 - 5.0 % [facility] SO2 (renny) arterial 100(H) 90 - 95 % [facility] Total CO2, Art POC 28 22 - 32 mmol/L [facility] BE, art, POC 0.8 -2.0 - 2.0 mmol/L [facility] HCO3, Art POC 26 20 - 30 mmol/L [facility] Hct, POC 30.0(L) 38.9 - 50.3 % [facility] Total Hb, POC 9.9(L) 13.0 - 17.5 g/dL [facility] Blood 04/15/2024 1:33 PM F[employer]ERGLASS QUALITY TECHNICIAN 04/15/2024 1:33 PM FIBERGLASS QUALITY TECHNICIAN us Chico Ruff MD LAB POCT ORDERABLES - DEVICE Final Result [facility] [address] Department [place] [address] * (ABNORMAL) POC Activated Clotting Time, High Range (04/15/2024 1:32 PM FIBERGLASS QUALITY TECHNICIAN) ACT 459(H) 87 - 138 sec Blood 04/15/2024 1:32 PM F[employer]ERGLASS QUALITY TECHNICIAN 04/15/2024 1:32 PM FIBERGLASS QUALITY TECHNICIAN us Chico Ruff MD LAB BLOOD ORDERABLES Final Re sult [facility] [address] Department of Laboratories [place], [place] [id number] * (ABNORMAL) POC Blood Gas and Chemistries, Arterial - (04/15/2024 1:16 PM FIBERGLASS QUALITY TECHNICIAN) pH, Art POC 7.42 7.35 - 7.45 pCO2, Art POC 39 35 - 45 mmHg [facility] pO2, Art POC 273(H) 80 - 108 mmHg [facility] Na, POC 135 135 - 145 mmol/L [facility] K POC 4.8 3.3 - 4.9 mmol/L [facility] Comment: Interpretive Data This method is not able to assess for hemolysis, which may falsely increase potassium concentrations. If further testing is needed to evaluate this result, consider in-laboratory plasma potassium. Current Interpretive Data was last revised on 2021. Cl, POC 105 97 - 110 mmol/L [facility] Ionized Ca, POC 4.95 4.50 - 5.10 mg/dL [facility] Glucose, POC 130 70 - 199 mg/dL [facility] Lactate, POC 1.6 0.0 - 2.0 mmol/L [facility] O2Hb, Art POC 98.0(H) 90.0 - 95.0 % [facility] Carboxhgb fract 0.4 0.0 - 2.9 % [facility] Methemoglobin 0.8 0.0 - 1.9 % [facility] HHb, POC 0.8 0.0 - 5.0 % [facility] SO2 (renny) arterial 99(H) 90 - 95 % [facility] Total CO2, Art POC 26 22 - 32 mmol/L [facility] BE, art, POC 0.8 -2.0 - 2.0 mmol/L [facility] HCO3, Art POC 26 20 - 30 mmol/L [facility] Hct, POC 38.0(L) 38.9 - 50.3 % [facility] Total Hb, POC 12.5(L) 13.0 - 17.5 g/dL [facility] Blood 04/15/2024 1:16 PM F[employer]ERGLASS QUALITY TECHNICIAN 04/15/2024 1:16 PM FIBERGLASS QUALITY TECHNICIAN us Chico Ruff MD LAB POCT ORDERABLES - DEVICE Final Result Performing Organization Address [facility] Co de Phone Number [facility] [address] [facility] [place] [place] [employer] [place] [address] * (ABNORMAL) POC Activated Clotting Time, High Range (04/15/2024 1:15 PM FIBERGLASS QUALITY TECHNICIAN) ACT 553(H) 87 - 138 sec Blood 04/15/2024 1:15 PM F[employer]ERGLASS QUALITY TECHNICIAN 04/15/2024 1:15 PM FIBERGLASS QUALITY TECHNICIAN us Chico Ruff MD LAB BLOOD ORDERABLES Final Re sult Performing Organization Address [facility] de Phone Number [facility] [address] [facility] [place] [place] [employer] [place] [address] * SC AN PROCEDURE PLACEHOLDER (04/15/2024 11:57 AM FIBERGLASS QUALITY TECHNICIAN) Anatomical Region Laterality Modality Other Narrative 04/15/2024 11:57 AM F[employer]ERGLASS QUALITY TECHNICIAN Leodan Beatty MD 04/15/2024 12:00 PM MARIUM [...] code: MARIUM placement and diagnostic exam, 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 Echocardiographic and doppler measurements: Ventricles: [...] inferior: hypokinetic 16- Apical septal: hypokinetic 17- [place]: hypokinetic Pre procedure segmental wall motion comments: Basal: [id number] moderate hypokinesis Mid: inferior-septal hypokinesis Valves: Aortic [...] MD ANESTHESIA ORDERABLES Final Re sult * SC AN CENTRAL LINE QUADRUPLE LUMEN, SC AN PROCEDURE PLACEHOLDER (04/15/2024 10:46 AM F[employer]ERGLASS QUALITY TECHNICIAN) Leodan Capps MD - 04/15/2024 10:46 AM F[employer]ERGLASS QUALITY TECHNICIAN Leodan Beatty MD 04/15/2024 10:47 AM Central [...] AN SHEATH INTRODUCER PERFORMABLE, PULMONARY ARTERY CATH, SC AN PROCEDURE PLACEHOLDER (0:45 AM F[employer]ERGLASS QUALITY TECHNICIAN) Narrative Leodan Beatty MD - 04/15/2024 10:45 AM F[employer]ERGLASS QUALITY TECHNICIAN Leodan Beatty MD 04/15/2024 10:46 AM Central [...] MD ANESTHESIA ORDERABLES Final Re sult * SC AN PROCEDURE PLACEHOLDER (04/15/2024 10:45 AM FIBERGLASS QUALITY TECHNICIAN) Leodan Capps MD - 04/15/2024 10:45 AM FIBERGLASS QUALITY TECHNICIAN Leodan Beatty MD 04/15/2024 10:45 AM Arterial Line Patient location: OR Indication: continuous blood pressure monitoring and blood sampling needed Staff: Supervising provider: Leodan Beatty MD Placed by: GALLEY HAND: Gerber Zabala CRNA Procedure prep: Prep solution: [...] MD ANESTHESIA ORDERABLES Final Re sult * SC AN ELECTIVE ENDOTRACHEAL AIRWAY, SC AN PROCEDURE PLACEHOLDER (04/15/2024 10:42 AM F[employer]ERGLASS QUALITY TECHNICIAN) Leodan Capps MD - 04/15/2024 10:42 AM FIBERGLASS QUALITY TECHNICIAN Leodan Beatty MD 04/15/2024 10:45 AM Airway [...] Clotting Time, High Range (04/15/2024 10:12 AM FIBERGLASS QUALITY TECHNICIAN) Pathologist [facility] ACT 98 87 - 138 sec Blood 04/15/2024 10:1 2 AM F[employer]ERGLASS QUALITY TECHNICIAN 04/15/2024 10:12 AM FIBERGLASS QUALITY TECHNICIAN Chico Ruff MD LAB BLOOD ORDERABLES Final Re sult [facility] [address] Department of Laboratories [place], [place] [id number] * MARIUM Add-On For OR (04/15/2024 8:04 AM FIBERGLASS QUALITY TECHNICIAN) Pathologist [facility] BSA 2.31 m2 CONS SCIMAGE Narrative CONS SCIMAGE - 04/15/2024 8:04 AM FIBERGLASS QUALITY TECHNICIAN Procedure Auto Finalized by Rule: BW CV MARIUM DURING CASE OR Please see the Anesthesiologist's Procedure Note for the results. us Leodan Beatty MD CV ECHO PROCEDURES Final Resul t CONS SCIMAGE * eGFR (04/15/2024 3:48 AM FIBERGLASS QUALITY TECHNICIAN) Pathologist [facility] eGFR 85 >=60 mL/min/1. 73 m2 Comment: [...] last reviewed 2021. Blood 04/15/2024 3:48 AM FIBERGLASS QUALITY TECHNICIAN 04/15/2024 4:08 AM FIBERGLASS QUALITY TECHNICIAN us John Solitario DO LAB BLOOD ORDERABLES Fi nal Result [facility] [address] Department [place] [address] * Differential, auto (04/15/2024 3:48 AM FIBERGLASS QUALITY TECHNICIAN) Neutrophil abs 4.0 1.5 - 6.5 K/cumm Imm gran abs 0.0 0.0 - 0.1 K/cumm [facility] Lymphocyte abs 1.7 0.8 - 3.3 K/cumm [facility] Monocyte abs 0.7 0.2 - 0.8 K/cumm [facility] Eosinophil abs 0.1 0.0 - 0.5 K/cumm [facility] Basophil abs 0.1 0.0 - 0.1 K/cumm [facility] Neutrophil pct 60.5 % [facility] Comment: Interpretive Data Percent cell count reference ranges are not reported, since discordance with absolute values may lead to misinterpretation of CBC data. Current Interpretive Data was last revised on 2017. Imm gran pct 0.3 % [facility] Comment: Interpretive Data Percent cell count reference ranges are not reported, since discordance with absolute values may lead to misinterpretation of CBC data. Current Interpretive Data was last revised on 2017. Lymphocyte pct 26.1 % [facility] Comment: Interpretive Data Percent cell count reference ranges are not reported, since discordance with absolute values may lead to misinterpretation of CBC data. Current Interpretive Data was last revised on 2017. Monocyte pct 10.2 % [facility] Comment: Interpretive Data Percent cell count reference ranges are not reported, since discordance with absolute values may lead to misinterpretation of CBC data. Current Interpretive Data was last revised on 2017. Eosinophil pct 2.1 % [facility] Comment: Interpretive Data Percent cell count reference ranges are not reported, since discordance with absolute values may lead to misinterpretation of CBC data. Current Interpretive Data was last revised on 2017. Basophil pct 0.8 % [facility] Comment: Interpretive Data Percent cell count reference ranges are not reported, since discordance with absolute values may lead to misinterpretation of CBC data. Current Interpretive Data was last revised on 2017. Blood 04/15/2024 3:48 AM FIBERGLASS QUALITY TECHNICIAN 04/15/2024 4:07 AM FIBERGLASS QUALITY TECHNICIAN us John Solitario DO LAB BLOOD ORDERABLES Fi nal Result [facility] [address] Department [place] [address] * (ABNORMAL) CBC with auto differential (04/15/2024 3:48 AM FIBERGLASS QUALITY TECHNICIAN) WBC 6.6 3.8 - 9.9 K/cumm Hgb 12.6(L) 13.0 - 17.5 g/dL [facility] Hct 38.1(L) 38.9 - 50.3 % [facility] Plt 171 150 - 400 K/cumm [facility] MPV 10.7 9.1 - 12.3 fL [facility] RBC 4.22(L) 4.30 - 5.80 M/cumm [facility] MCV 90.3 81.3 - 96.4 fL [facility] MCH 29.9 27.1 - 33.3 pg [facility] MCHC 33.1 32.3 - 35.7 g/dL [facility] RDW CV 12.8 11.1 - 14.9 % [facility] RDW SD 41.8 35.7 - 48.1 fL [facility] NRBC abs 0.00 0.00 - 0.01 K/cumm [facility] Blood 04/15/2024 3:48 AM FIBERGLASS QUALITY TECHNICIAN 04/15/2024 4:07 AM FIBERGLASS QUALITY TECHNICIAN John Solitario DO LAB BLOOD ORDERABLES Fi nal Result Performing Organization Address City/[facility] Co de Phone Number [facility] [address] [place] [employer] [place] [address] * (ABNORMAL) aPTT (04/15/2024 3:48 AM FIBERGLASS QUALITY TECHNICIAN) Pathologist [facility] aPTT 87(H) 28 - 38 sec Comment: Interpretive Data Heparin therapeutic range: 66.0 - 100.0 seconds. Range based on correlation with therapeutic heparin activity range of 0.3 - 0.7 Units/mL. Current interpretive data was last revised on 2023. Blood 04/15/2024 3:48 AM FIBERGLASS QUALITY TECHNICIAN 04/15/2024 4:08 AM FIBERGLASS QUALITY TECHNICIAN Narrative [facility] - 04/15/2024 4:25 AM FIBERGLASS QUALITY TECHNICIAN Draw for duration of Heparin infusion. Chico Ruff MD LAB BLOOD ORDERABLES Final Re sult [facility] [address] Department [employer] [place], [place] [id number] * Basic metabolic panel (04/15/2024 3:48 AM FIBERGLASS QUALITY TECHNICIAN) Pathologist [facility] Sodium 140 135 - 145 mmol/L Potassium, pl 3.9 3.3 - 4.9 mmol/L [facility] Chloride 103 97 - 110 mmol/L [facility] CO2 24 22 - 32 mmol/L [facility] Anion gap 13 2 - 15 mmol/L [facility] BUN 18 6 - 25 mg/dL [facility] Creatinine 1.02 0.80 - 1.30 mg/dL [facility] Glucose 104 70 - 199 mg/dL [facility] Comment: Interpretive Data Fasting glucose >/= 126 [...] 2022. Calcium 9.4 8.5 - 10.3 mg/dL [facility] Blood 04/15/2024 3:48 AM FIBERGLASS QUALITY TECHNICIAN 04/15/2024 4:08 AM FIBERGLASS QUALITY TECHNICIAN John Solitario DO LAB BLOOD ORDERABLES Fi nal Result Performing Organization Address City/[facility]/ZIP Co de Phone Number [facility] [address] [place] [address] * ECG 12 lead (04/14/2024 3:54 PM FIBERGLASS QUALITY TECHNICIAN) 04/14/2024 3:54 PM FIBERGLASS QUALITY TECHNICIAN Narrative [facility] - 04/15/2024 5:11 PM FIBERGLASS QUALITY TECHNICIAN Vent Rate: 68 bpm RR Interval: 879 msec SC Interval: 169 msec QRS Duration: 113 msec QT Interval: 385 msec QTC Interval: 402 msec P-R-T Willcox: 25 - 36 - 34 degrees IMPRESSION: SINUS RHYTHM POSSIBLE INFERIOR MYOCARDIAL INFARCTION , PROBABLY OLD BORDERLINE ECG Electronically Signed By: Manoj Grissom MD [facility] Jaime Colin MD ECG ORDERABLES Final Re sult Performing Organization Address City/[facility]/ZIP Co de Phone Number [employer] [facility] * XR Chest PA Lateral 2 View (04/14/2024 3:51 PM FIBERGLASS QUALITY TECHNICIAN) Anatomical Region Laterality Modality Body, Chest N/A Computed Radiogr aphy 04/14/2024 4:44 PM FIBERGLASS QUALITY TECHNICIAN Impressions 04/14/2024 4:44 PM FIBERGLASS QUALITY TECHNICIAN No acute cardiopulmonary abnormality. Electronically signed by: Reilly Jeffers M.D. Narrative 04/14/2024 4:44 PM FIBERGLASS QUALITY TECHNICIAN EXAMINATION: XR CHEST PA LATERAL 2 VIEWS [...] * Type and screen (04/14/2024 3:22 PM FIBERGLASS QUALITY TECHNICIAN) ABO Rh O Positive Arvind, indirect Negative [facility] Blood 04/14/2024 3:22 PM FIBERGLASS QUALITY TECHNICIAN 04/14/2024 3:35 PM FIBERGLASS QUALITY TECHNICIAN Narrative [facility] - 04/14/2024 4:18 PM FIBERGLASS QUALITY TECHNICIAN PRE-OP CABG FOR 04/15/24 Has the patient had Daratumumab or Isatuximab in the past 6 months?->Unknown Jaime Colin MD LAB BLOOD BANK TEST ORDE RAYMOND Final Result [facility] [address] [place] [employer] [place] [address] * (ABNORMAL) Hemoglobin A1c (04/14/2024 3:22 PM FIBERGLASS QUALITY TECHNICIAN) Hgb A1C 5.8(H) 4.0 - 5.6 % Estimated Average Glucose 120 mg/dL [facility] Comment: The ADA recommends reporting an estimated Average Glucose (eAG) with all Hemoglobin A1c results using the equation derived from a study of 507 normal and diabetic adults. Minority populations were underrepresented and children were not included. (Diabetes Care 31:0168-2608, 2008). The eAG is not equivalent to a fasting glucose. Blood 04/14/2024 3:22 PM FIBERGLASS QUALITY TECHNICIAN 04/14/2024 3:31 PM FIBERGLASS QUALITY TECHNICIAN us Jaime Colin MD LAB BLOOD ORDERABLES Fin al Result [facility] [address] [place] [address] * (ABNORMAL) Lipid panel (04/14/2024 3:22 PM FIBERGLASS QUALITY TECHNICIAN) Pathologist [facility] Cholesterol 150 30 - 199 mg/dL Comment: [...] revised on 2017. Triglycerides 218(H) <=149 mg/dL [facility] Comment: Interpretive Data Ages < or = [...] revised on 2017. HDL 39(L) >=40 mg/dL [facility] Comment: Interpretive Data Ages < or = [...] on 2017. LDL, calculated 75 <=129 mg/dL [facility] Comment: Interpretive Data Ages < or = [...] revised on 2023. Non-HDL Cholesterol 111 mg/dL [facility] Comment: Interpretive Data Ages < or = [...] last revised on 2017. Chol/HDL ratio 4 [facility] Blood 04/14/2024 3:22 PM FIBERGLASS QUALITY TECHNICIAN 04/14/2024 3:31 PM FIBERGLASS QUALITY TECHNICIAN Jaime Colin MD LAB BLOOD ORDERABLES Fin al Result Performing Organization Address [facility] de Phone Number [facility] [address] [place] [address] * Prepare RBC: 2 Units (04/14/2024 2:31 PM FIBERGLASS QUALITY TECHNICIAN) Product code [id number] [facility] Unit Number [id number] 2-U [facility] Product Blood Type OPOS [facility] Dispense Status RETURNED [facility] Product code [id number] Unit Number [id number] 4-Q [facility] Product Blood Type OPOS [facility] Dispense Status RETURNED [facility] Blood 04/14/2024 2:31 PM FIBERGLASS QUALITY TECHNICIAN Narrative [facility] - 04/16/2024 6:35 PM FIBERGLASS QUALITY TECHNICIAN Specify Procedure:->CABG Are special requirements needed? (All products are leukoreduced and CMV- safe)- >No Date required:-[id number] LRRBC # of [id number] Reasons:-Hold for procedure (specify procedure)} Jaime Colin MD BLOOD BANK PRODUCT ORDER GINNA Final Result Performing Organization Address [facility] de Phone Number [facility] [address] [place] [address] * (ABNORMAL) aPTT (04/14/2024 10:38 AM FIBERGLASS QUALITY TECHNICIAN) aPTT 81(H) 28 - 38 sec Comment: Interpretive Data Heparin therapeutic range: 66.0 - 100.0 seconds. Range based on correlation with therapeutic heparin activity range of 0.3 - 0.7 Units/mL. Current interpretive data was last revised on 2023. Blood 04/14/2024 10:3 8 AM FIBERGLASS QUALITY TECHNICIAN 04/14/2024 10:47 AM FIBERGLASS QUALITY TECHNICIAN Ed Desai MD LAB BLOOD ORDERABLES Fin al Result Performing Organization Address City/[facility]/ZIP Co de Phone Number [facility] [address] [place] [address] * eGFR (04/14/2024 4:35 AM FIBERGLASS QUALITY TECHNICIAN) eGFR >90 >=60 mL/min/1. 73 m2 Comment: [...] last reviewed 2021. Blood 04/14/2024 4:35 AM FIBERGLASS QUALITY TECHNICIAN 04/14/2024 5:48 AM FIBERGLASS QUALITY TECHNICIAN John Solitario DO LAB BLOOD ORDERABLES Fi nal Result Performing Organization Address City/[facility]/ZIP Co de Phone Number [facility] [address] [place] [employer] [place] [address] * Differential, auto (04/14/2024 4:35 AM FIBERGLASS QUALITY TECHNICIAN) Neutrophil abs 4.2 1.5 - 6.5 K/cumm Imm gran abs 0.0 0.0 - 0.1 K/cumm [facility] Lymphocyte abs 1.5 0.8 - 3.3 K/cumm [facility] Monocyte abs 0.6 0.2 - 0.8 K/cumm [facility] Eosinophil abs 0.1 0.0 - 0.5 K/cumm [facility] Basophil abs 0.1 0.0 - 0.1 K/cumm [facility] Neutrophil pct 64.5 % [facility] Comment: Interpretive Data Percent cell count reference ranges are not reported, since discordance with absolute values may lead to misinterpretation of CBC data. Current Interpretive Data was last revised on 2017. Imm gran pct 0.3 % [facility] Comment: Interpretive Data Percent cell count reference ranges are not reported, since discordance with absolute values may lead to misinterpretation of CBC data. Current Interpretive Data was last revised on 2017. Lymphocyte pct 22.9 % [facility] Comment: Interpretive Data Percent cell count reference ranges are not reported, since discordance with absolute values may lead to misinterpretation of CBC data. Current Interpretive Data was last revised on 2017. Monocyte pct 9.5 % [facility] Comment: Interpretive Data Percent cell count reference ranges are not reported, since discordance with absolute values may lead to misinterpretation of CBC data. Current Interpretive Data was last revised on 2017. Eosinophil pct 2.0 % [facility] Comment: Interpretive Data Percent cell count reference ranges are not reported, since discordance with absolute values may lead to misinterpretation of CBC data. Current Interpretive Data was last revised on 2017. Basophil pct 0.8 % [facility] Comment: Interpretive Data Percent cell count reference ranges are not reported, since discordance with absolute values may lead to misinterpretation of CBC data. Current Interpretive Data was last revised on 2017. Blood 04/14/2024 4:35 AM [employer] TECHNICIAN 04/14/2024 5:48 AM [employer]AL[employer] TECHNICIAN us John Solitario DO LAB BLOOD ORDERABLES Fi nal Result [facility] [id number] [address] [place] [address] * CBC with auto differential (04/14/2024 4:35 AM FIBERGLASS QUALITY TECHNICIAN) [facility] WBC 6.5 3.8 - 9.9 K/cumm Hgb 13.0 13.0 - 17.5 g/dL [facility] Hct 39.7 38.9 - 50.3 % [facility] Plt 177 150 - 400 K/cumm [facility] MPV 11.0 9.1 - 12.3 fL [facility] RBC 4.37 4.30 - 5.80 M/cumm [facility] MCV 90.8 81.3 - 96.4 fL [facility] MCH 29.7 27.1 - 33.3 pg [facility] MCHC 32.7 32.3 - 35.7 g/dL [facility] RDW CV 12.6 11.1 - 14.9 % [facility] RDW SD 41.7 35.7 - 48.1 fL [facility] NRBC abs 0.00 0.00 - 0.01 K/cumm [facility] Blood 04/14/2024 4:35 AM FIBERGLASS QUALITY TECHNICIAN 04/14/2024 5:48 AM FIBERGLASS QUALITY TECHNICIAN John Solitario DO LAB BLOOD ORDERABLES Fi nal Result [facility] [address] [place] [address] * (ABNORMAL) aPTT (04/14/2024 4:35 AM FIBERGLASS QUALITY TECHNICIAN) [facility] aPTT 94(H) 28 - 38 sec Comment: Interpretive Data Heparin therapeutic range: 66.0 - 100.0 seconds. Range based on correlation with therapeutic heparin activity range of 0.3 - 0.7 Units/mL. Current interpretive data was last revised on 2023. Blood 04/14/2024 4:35 AM FIBERGLASS QUALITY TECHNICIAN 04/14/2024 5:47 AM FIBERGLASS QUALITY TECHNICIAN Ed Desai MD LAB BLOOD ORDERABLES Fin al Result [facility] [address] [place] [address] * Basic metabolic panel (04/14/2024 4:35 AM FIBERGLASS QUALITY TECHNICIAN) Sodium 140 135 - 145 mmol/L Potassium, pl 3.7 3.3 - 4.9 mmol/L [facility] Chloride 102 97 - 110 mmol/L [facility] CO2 25 22 - 32 mmol/L [facility] Anion gap 13 2 - 15 mmol/L [facility] BUN 17 6 - 25 mg/dL [facility] Creatinine 0.92 0.80 - 1.30 mg/dL [facility] Glucose 100 70 - 199 mg/dL [facility] Comment: Interpretive Data Fasting glucose >/= 126 [...] 2022. Calcium 9.5 8.5 - 10.3 mg/dL [facility] Blood 04/14/2024 4:35 AM FIBERGLASS QUALITY TECHNICIAN 04/14/2024 5:48 AM FIBERGLASS QUALITY TECHNICIAN John Solitario DO LAB BLOOD ORDERABLES Fi nal Result [facility] [address] [place] [address] * Check Sample (04/14/2024 4:31 AM FIBERGLASS QUALITY TECHNICIAN) ABO Rh O Positive MBC HCLL OTHER 04/14/2024 4:31 AM FIBERGLASS QUALITY TECHNICIAN 04/14/2024 2:54 PM FIBERGLASS QUALITY TECHNICIAN Chico Ruff MD LAB BLOOD ORDERABLES Final Re sult Performing Organization Address [facility] Co de Phone Number [facility] [address] [place] [address] MBC * (ABNORMAL) aPTT (04/13/2024 9:58 PM FIBERGLASS QUALITY TECHNICIAN) aPTT 51(H) 28 - 38 sec Comment: Interpretive Data Heparin therapeutic range: 66.0 - 100.0 seconds. Range based on correlation with therapeutic heparin activity range of 0.3 - 0.7 Units/mL. Current interpretive data was last revised on 2023. Blood 04/13/2024 9:58 PM FIBERGLASS QUALITY TECHNICIAN 04/13/2024 10:07 PM FIBERGLASS QUALITY TECHNICIAN Ed Desai MD LAB BLOOD ORDERABLES Fin al Result Performing Organization Address [facility] de Phone Number [facility] [address] [place] [address] * eGFR (04/13/2024 2:56 PM FIBERGLASS QUALITY TECHNICIAN) eGFR 88 >=60 mL/min/1. 73 m2 Comment: [...] last reviewed 2021. Blood 04/13/2024 2:56 PM FIBERGLASS QUALITY TECHNICIAN 04/13/2024 2:56 PM FIBERGLASS QUALITY TECHNICIAN Azar Lock NP LAB BLOOD ORDERABLES Final Result Performing Organization Address [facility] de Phone Number [facility] [address] [facility] [place] [employer] [place] [address] * aPTT (04/13/2024 2:56 PM FIBERGLASS QUALITY TECHNICIAN) aPTT 36 28 - 38 sec Comment: Interpretive Data Heparin therapeutic range: 66.0 - 100.0 seconds. Range based on correlation with therapeutic heparin activity range of 0.3 - 0.7 Units/mL. Current interpretive data was last revised on 2023. Blood 04/13/2024 2:56 PM FIBERGLASS QUALITY TECHNICIAN 04/13/2024 2:56 PM FIBERGLASS QUALITY TECHNICIAN Ed Desai MD LAB BLOOD ORDERABLES Fin al Result Performing Organization Address [facility] de Phone Number [facility] [address] [facility] [place] [employer] [place] [address] * Protime-INR (04/13/2024 2:56 PM FIBERGLASS QUALITY TECHNICIAN) PT 11.0 9.7 - 13.0 sec INR 1.02 0.90 - 1.20 [facility] Comment: Interpretive data Oral anticoagulant therapeutic ranges: Venous thromboembolism prophylaxis or treatment: 2.0-3.0 CARDIOLOGY Standard range: 2.0-3.0 High-intensity range: 2.5-3.5 Refer to indication-specific guidelines for appropriate target ranges for prosthetic heart valve replacement. Current interpretive data was last revised on 2019. Blood 04/13/2024 2:56 PM FIBERGLASS QUALITY TECHNICIAN 04/13/2024 2:56 PM FIBERGLASS QUALITY TECHNICIAN Narrative [facility] - 04/13/2024 3:14 PM FIBERGLASS QUALITY TECHNICIAN Baseline prior to heparin initiation Azar Lock DIRECTOR SURFACE TRANSPORTATION LAB BLOOD ORDERABLES Final Result Performing Organization Address City/[facility]/ZIP Co de Phone Number [facility] [address] [facility] [place] [employer] [place] [address] * CBC without differential (04/13/2024 2:56 PM FIBERGLASS QUALITY TECHNICIAN) Pathologist [facility] WBC 5.8 3.8 - 9.9 K/cumm Hgb 13.5 13.0 - 17.5 g/dL [facility] Hct 40.3 38.9 - 50.3 % [facility] Plt 193 150 - 400 K/cumm [facility] MPV 10.1 9.1 - 12.3 fL [facility] RBC 4.46 4.30 - 5.80 M/cumm [facility] MCV 90.4 81.3 - 96.4 fL [facility] MCH 30.3 27.1 - 33.3 pg [facility] MCHC 33.5 32.3 - 35.7 g/dL [facility] RDW CV 12.8 11.1 - 14.9 % [facility] RDW SD 42.1 35.7 - 48.1 fL [facility] NRBC abs 0.00 0.00 - 0.01 K/cumm [facility] Blood 04/13/2024 2:56 PM FIBERGLASS QUALITY TECHNICIAN 04/13/2024 2:56 PM FIBERGLASS QUALITY TECHNICIAN Narrative [facility] - 04/13/2024 3:02 PM FIBERGLASS QUALITY TECHNICIAN Baseline prior to heparin initiation Azar Lock DIRECTOR SURFACE TRANSPORTATION LAB BLOOD ORDERABLES Final Result [facility] [address] Department [employer] [place], [place] [id number] * Phosphorus (04/13/2024 2:56 PM FIBERGLASS QUALITY TECHNICIAN) Phosphorus, pl 4.3 2.3 - 4.5 mg/dL Blood 04/13/2024 2:56 PM FIBERGLASS QUALITY TECHNICIAN 04/13/2024 2:56 PM FIBERGLASS QUALITY TECHNICIAN Azar Lock DIRECTOR SURFACE TRANSPORTATION LAB BLOOD ORDERABLES Final Result Performing Organization Address City/[facility]/ZIP Co de Phone Number [facility] [address] Department [place] [address] * Magnesium (04/13/2024 2:56 PM FIBERGLASS QUALITY TECHNICIAN) [facility] Magnesium 1.9 1.4 - 2.5 mg/dL Blood 04/13/2024 2:56 PM FIBERGLASS QUALITY TECHNICIAN 04/13/2024 2:56 PM FIBERGLASS QUALITY TECHNICIAN Azar Lock DIRECTOR SURFACE TRANSPORTATION LAB BLOOD ORDERABLES Final Result Performing Organization Address [facility] de Phone Number [facility] [address] [place] [address] * (ABNORMAL) Comprehensive metabolic panel (04/13/2024 2:56 PM FIBERGLASS QUALITY TECHNICIAN) [facility] Sodium 139 135 - 145 mmol/L Potassium, pl 3.8 3.3 - 4.9 mmol/L [facility] Chloride 103 97 - 110 mmol/L [facility] CO2 24 22 - 32 mmol/L [facility] Anion gap 12 2 - 15 mmol/L [facility] BUN 13 6 - 25 mg/dL [facility] Creatinine 0.99 0.80 - 1.30 mg/dL [facility] Glucose 130 70 - 199 mg/dL [facility] Comment: Interpretive Data Fasting glucose >/= 126 [...] 2022. Calcium 9.8 8.5 - 10.3 mg/dL [facility] Bilirubin, total 0.4 0.1 - 1.2 mg/dL [facility] Protein, pl 7.6 6.5 - 8.5 g/dL [facility] Albumin 4.2 3.5 - 5.0 g/dL [facility] Alk phos 35(L) 40 - 130 Units/L [facility] ALT 14 7 - 55 Units/L [facility] AST 11 10 - 50 Units/L [facility] Blood 04/13/2024 2:56 PM FIBERGLASS QUALITY TECHNICIAN 04/13/2024 2:56 PM FIBERGLASS QUALITY TECHNICIAN Azar Lock NP LAB BLOOD ORDERABLES Final Result Performing Organization Address City/[facility]/ZIP Co de Phone Number [facility] [address] [place] [address] * CT Body Outside Reference (04/13/2024 1:19 PM FIBERGLASS QUALITY TECHNICIAN) Narrative RAD_PACS_OUTSIDE_FILM_[facility] - 04/13/2024 1:19 PM FIBERGLASS QUALITY TECHNICIAN This order has been auto-finalized and does not contain a result. Azar Lock NP IMG CT PROCEDURES Final Re sult Performing Organization Address [facility] Co de Phone Number RAD_PACS_OUTSIDE_FILM_[facility] * Cardiology Document Scan (04/12/2024 10:01 AM FIBERGLASS QUALITY TECHNICIAN) Anatomical Region Laterality Modality Other Anuel Kendall MD CV CARDIAC SERVICES PROCEDURES F inal Result * PSA screen (10/09/2017 7:39 AM CDT) PSA <0.1 0.0 - 4.0 ng/mL [facility] - 01 Comment: [place] ECLIA methodology. According to the [place] [employer], Serum PSA should decrease and [...] 10/10/2017 8:32 AM CDT Performed at: - [facility] [id number] Residential Lawn Specialist: Santiago Juárez PhD, Phone: [phone] us Fredo Joy MD LAB BLOOD ORDERABLES Gail matamoros Result [facility] - 01 from Last 3 Months or Most Recently Relevant to Health Maintenance Insurance [employer] ACCESS CHOICE [employer] ACCESS CHOICE Advance Directives For more information, please contact: [phone] * Full Code (Latest Code Status on File) Date Activated Date Inactivated Comments 04/24/2024 8:06 PM 04/29/2024 8:30 PM * Full Code Date Activated Date Inactivated Comments 04/13/2024 10:00 AM 04/21/2024 2:55 PM * Full Code Date Activated Date Inactivated Comments 07/02/2023 4:19 AM 07/14/2023 6:29 PM * Full Code Date Activated Date Inactivated Comments 09/08/2017 12:32 PM 09/09/2017 9:12 PM Care Teams Site Project Manager Relationship Specialty Start Date End Date Dana Haynes NP [address] [place] [address] PCP - General Family Medicine 07/03/23 Young Guaman MD [address] [facility] [address] [place] [address] 09/08/17 Jahaira Avendano MD [address] [facility], [facility] [address] [place] [address] Consulting Physician Pain Management 01/02/21
--- OUTSIDE RECORDS SUMMARY | 2024-06-24 13:54 | XMS_ITS | Encounter Summary ---
Author Organization [facility] Address [address] [place] [address] Care Team Providers Care Belt And Link Shop Supervisor Name Role Phone Young Guaman MD Unavailable [phone] Jahaira Avendano MD Unavailable Dana Haynes NP Primary Care Provider [phone] Encounter Details Date Type Department Care Team (Late st Contact Info) Description 04/12/2024 Documentation [id number] [place] [address] Alivia Colby, HUMZA Social History Tobacco Use Types Packs/Day Years Used Date Smoking Tobacco: Former Cigarettes 1 42 Smokeless Tobacco: Current Chew Alcohol Use Standard Drinks/Week Comments Yes 2 (1 standard drink = 0.6 oz pur e alcohol) OASIS D0700: Social Isolation Answer Da te Recorded Frequency of experiencing loneliness or isolatio n Never 07/15/2023 [facility] Utilities Answer Date Recorded In the past 12 months has th [employer] electric, gas, oil, or water company threatened to shut off services in your home? No 04/14/2024 Social Connection and Isolat ion Panel [NHANES] Answer Date Recorded In a typical week, how many times do you talk on the phone with family, friends, or neighbors? More than three times a week 04/14/2024 How often do you get togethe r with friends or relatives? More than three times a week 04/14/2024 How often do you attend chur ch or yazidi services? Never 04/14/2024 Do you belong to any clubs o r organizations such as yazidism groups, unions, fraternal or athletic groups, or school groups? No 04/14/2024 How often do you attend meet ings of the clubs or organizations you belong to? Never 04/14/2024 Are you , , di vorced, , never , or living with a partner? 04/14/2024 AUDIT-C Answer Date Recorded Q1: How often [...] care, and heating? Not hard at all 04/14/2024 Hunger Vital Sign Answer Date Recorded Within the past 12 months, y ou worried that your food would run out before you got the money to buy more. Never true 04/14/19 25 Within the past 12 months, t he food you bought just didn't last and you didn't have money to get more. Never true 04/14/2024 PRAPARE - Transportation Answer Date Re corded In the past 12 months, has l ack of transportation kept you from medical appointments or from getting medications? No 11/2024 In the past 12 months, has l ack of transportation kept you from meetings, work, or from getting things needed for daily living? No 04/14/2024 Housing Stability Vital Sign Answer Sandro e [...] place to sleep or slept in a correction (including now)? No 07/03/2023 Housing Stability Vital Sign Answer Sandro e Recorded In the last 12 months, was t here a time when you were not able to pay the mortgage or rent on time? No 04/14/2024 In the past 12 months, how m any times have you moved where you were living? 0 04/14/2024 At any time in the past 12 m [facility], were you homeless or living in a correction (including now)? No 04/14/2024 Personal Safety Answer Date Recorded Have you ever been in or are you currently in a harmful physical or emotional relationship or is someone making you feel afraid or unsafe? Denies 04/15/2024 Sex and Gender Information Value Date Recorded Sex Assigned at Not on file Legal Sex Male 2:15 AM SUBSTITUTE NURSE Gender Identity Male 05/24/2020 10:47 AM SUBSTITUTE NURSE Sexual Orientation Straight 05/24/2020 10 :47 AM SUBSTITUTE NURSE documented as of this encounter Functional Status * Audit-C Score Answer Date of Assessment Author 4 04/15/2024 9:21 AM Yessy Cuevas RN * Question Answer Date of Assessment Author Q1: How often do you have a drink containing alcohol? 2-4 times a month 04/15/2024 9:21 AM Yola Cuevas RN Q2: How many drinks containing alcohol do you have on a typical day when you are drinking? 3 or 4 04/15/2024 9:21 AM Yola Cuevas RN Q3: How often do you have six or more drinks on one occasion? Less than monthly 04/15/2024 9:21 AM Yola Cuevas RN documented as of this encounter Plan of Treatment Not on file documented as of this encounter Visit Diagnoses Not on filedocumented in this encounter Care Teams Belt And Link Shop Supervisor Relationship Specialty Start Date End Date Dana Haynes NP [address] [place] [address] PCP - General Family Medicine 07/03/23 Young Guaman MD [address] [place] [address] [place] [address] 09/08/17 Jahaira Avendano MD [address] [facility], [place] [address] Consulting Physician Pain Management 01/02/21 documented as of this encounter
--- OUTSIDE RECORDS SUMMARY | 2024-06-24 13:54 | XMS_ITS | Clinical Summary ---
Author Organization [facility] Address [address] [facility] [place] [address] Care Team Providers Care Senior Revenue Accountant Name Role Phone Obey Ma Primary Care Provider [phone] Source Comments [facility],non-owned Affiliates and Associated Physician Practices is amultiple site organization consisting of ambulatory clinics and hospital sitesin [place], [place], [place] and [place]. This disclosure is being madepursuant to the Care Everywhere program and may not contain all information available regarding this patient. Last updated 17.[facility] Allergies Active Allergy Reactions Criticality Noted Date Comments Oxycodone Rash Medium 07/27/2020 Oxycodone-Aspirin Rash Medium 08/23/2017 Penicillins Unknown 08/23/2017 Tetracyclines Diarrhea,Unknown,Vomiting Low 018 Medications * Be aware that medications may not be up to date on this document. Alwaysverify current medications with the patient. Medication Sig Dispensed Refills Start Date End Date Status pantoprazole EC (PROTONIX) 40 MG tablet Take 40 mg by mouth once daily Active montelukast (SINGULAIR) 10 MG tablet Take 10 mg by mouth once daily Active amLODIPine (NORVASC) 5 MG tablet Take 5 mg by mouth once daily Active gabapentin (NEURONTIN) 300 MG capsule Take 600 mg by mouth 2 times daily Active nortriptyline (PAMELOR) 50 MG capsule Take 50 mg by mouth once daily Active famotidine (PEPCID) 40 MG tablet Take 40 mg by mouth once daily 06/18/2020 Active meloxicam (MOBIC) 7.5 MG tablet Take 7.5 mg by mouth 2 times daily Active pravastatin (PRAVACHOL) 40 MG tablet Take 40 mg by mouth once daily Active tadalafil (CIALIS) 5 MG tablet Take 5 mg by mouth once daily 07/17/2020 Active topiramate (TOPAMAX) 50 MG tabletIndications:Occ ipital neuralgia of left side Take 1 (one) tablet by mouth 2 times daily 180 tablet 3 08/15/2020 Active valsartan-hydroCHLORO thiazide (DIOVAN HCT) 320-25 MG tablet Take 1 tablet by mouth once daily 11/11/2020 Active hydrALAZINE (APRESOLINE) 100 MG tablet Take 100 mg by mouth 3 times daily Active propranolol (INDERAL) 20 MG tablet Take 1 (one) tablet by mouth 3 times daily 270 tablet 3 11/30/2020 Active Active Problems No known active problems Social History Tobacco Use Types Packs/Day Years Used Date Smoking Tobacco: Never Smokeless Tobacco: Never Alcohol Use Standard Drinks/Week Comments Never 0 (1 standard drink = 0.6 oz pur e alcohol) Sex and Gender Information Value Date Recorded Sex Assigned at Male 08/07/2023 9:36 AM CDT Gender Identity Male 08/07/2023 9:36 AM CDT Sexual Orientation Straight 08/07/2023 9: 36 AM CDT Last Filed Vital Signs Vital Sign Reading Time Taken Comments Blood Pressure 136/81 11/30/2020 1:07 PM CDT Pulse 97 11/30/2020 1:07 PM CDT Temperature 36.7 C (98 F) 11/30/2020 1:07 PM CDT Respiratory Rate - - Oxygen Saturation 98% 11/30/2020 1:07 PM CDT Inhaled Oxygen Concentration - - Weight 127 kg (280 lb) 11/30/2020 1:07 PM CDT Height 177.8 cm (5' 10 ) 11/30/2020 1:07 PM CDT Body Mass Index 40.18 11/30/2020 1:07 PM CDT Plan of Treatment Health Maintenance Due Date Last Done Comments COLOGCOURTNEY (AGES 45-75) - COL ON CA SCREENING 1964 COLON MONITORING 1964 COLONOSCOPY - COLON CA SCREENING 1964 CT COLONOGRAPHY - COLON CA SCREENING 1964 Colorectal Cancer Screening 1964 FIT - COLON CA SCREENING 1964 FLEX SIG - COLON CA SCREENING 1964 HIV SCREENING 1979 HEPATITIS C SCREENING 04/18/1982 DTAP/TDAP/TD VACCINES (1 - Tdap) 1983 PNEUMOCOCCAL VACCINE 50+ (1 of 1 - PCV) 2014 ZOSTER VACCINE (1 of 2) 2014 SCREENING FOR DIABETES 07/27/2020 COVID-19 VACCINE (1 - 2023-2 5 season) 2023 INFLUENZA VACCINE (#1) 2023 DEPRESSION SCREENING 04/07/2024 Respiratory Syncytial Virus (RSV) Vaccine Pt: or over 60 yrs (1 - Risk 60-74 years 1-dose series) 2024 HEPATITIS B VACCINE Aged Out No longe r eligible based on patient's age to complete this topic HIB VACCINE Aged Out No longer eligi ble based on patient's age to complete this topic HPV VACCINE Aged Out No longer eligi ble based on patient's age to complete this topic MENINGOCOCCAL (Group B) VACC INE SHARED DECISION-MAKING Aged Out No longer eligibl e based on patient's age to complete this topic MENINGOCOCCAL GROUPS A/C/Y/W VACCINE Aged Out No longer eligible b ased on patient's age to complete this topic PNEUMOCOCCAL VACCINE Aged Out No long er eligible based on patient's age to complete this topic Care Teams Senior Revenue Accountant Relationship Specialty Start Date End Date Obey Ma DO [address] [place] [address] [facility] - General 06/19/20
== END 2024-06-24 13:26 | disposition home or self-care (01) ==
PROVIDERS: PCP Family Medicine; Visit Provider Family Medicine
DX: R91.8 Other nonspecific abnormal finding of lung field (principal); Q45.3 Other congenital malformations of pancreas and pancreatic duct
CPT/HCPCS: 71250; 74150

== ENCOUNTER 2024-08-02 11:15 | Outpatient (RCR) | payer BC, SELFPAY | END 2024-08-25 14:07 | disposition home or self-care (01) | LOC: ANHCPREHAB 11:15 | PROVIDERS: PCP Family Medicine; Visit Provider Internal Medicine | DX: Z95.1 Presence of aortocoronary bypass graft (principal) | CPT/HCPCS: 93798 ==

== ENCOUNTER 2024-08-31 16:10 | Emergency (ER) | payer BC, SELFPAY ==
--- NOTE | ~2024-08-31 | XR_ITS ---
CHEST RADIOGRAPH, PA AND LATERAL CLINICAL HISTORY: chest pain, LEFT SIDE FOR A FEW DAYS . COMPARISON: 04/09/2024 TECHNIQUE: PA and lateral views of the chest. FINDINGS Sternal wires and mediastinal clips are identified, the wires are midline and intact. The remainder of the cardiomediastinal silhouette is otherwise unremarkable. Blunting of the left costophrenic sulcus with a small left-sided pleural effusion, an interval change from previous study. The remainder of the lungs are otherwise clear. IMPRESSION: Small left-sided pleural effusion without focal infiltrate. Reviewed, dictated and finalized at location A.
--- NOTE | ~2024-08-31 | CT_ITS ---
CTA chest PE abdomen pel Ordering provider: Ailyn Sethi APRN History: . elevated dimer, shortness of breath, chest pain . Comparison: June 24, 2024 Technique: CT angiogram chest was performed following timed intravenous injection of contrast. Thin s lice axial images and reformatted coronal images were obtained. Three dimensional reformatted images of the chest were also obtained using a [employer] workstation. Also, CT of the abdomen and pelvis was pe rformed with IV contrast. . Automated exposure control and iterative reconstruction technique were e mployed. The dose-length product was 2155.59 mGy-cm. 100 mL Omnipaque 350 was given IV. FINDINGS: CHEST: --PULMONARY ARTERIES: No pulmonary embolus. --VISUALIZED THORACIC INLET: Normal. --MEDIASTINUM: Aorta/coronary arteries: Mild atheromatous disease. Heart/other: The heart is not enlarged. Lymph nodes: No mediastinal or hilar adenopathy. Postoperative changes in the mediastinum and sternum. --LUNGS: Nodule seen in the left apical area is unchanged. Nodule in the right upper lobe also unchanged. Nodu le in the left lung base medially also unchanged. No pulmonary masses. No infiltrates or effusions. N o pneumothorax. --MUSCULOSKELETAL: Bones: Age appropriate degenerative changes of the spine. Superficial soft tissues: The superficial soft tissues are normal. ABDOMEN/PELVIS: --MUSCULOSKELETAL: Superficial soft tissues: Right inguinal fat containing hernia. The superficial soft tissues are norm al. Bones: Age appropriate degenerative changes of the spine. --UPPER ABDOMINAL ORGANS: Liver: Tiny hyperdensities in the left and right lobe most likely tiny cysts. Small hypodensity most likely a cyst seen in segment #6 measuring 1.1 cm. Ultrasound evaluation advised. Gallbladder: Status post cholecystectomy Spleen: Normal. Stomach/duodenum: Normal. Pancreas: Normal. Adrenals: Normal. Kidneys: Bilateral renal cysts with the largest in the right kidney lower pole measuring 2.8 x 2.8 cm . Small density is seen in the right kidney midpole laterally which measures 1.1 cm which is unchange d from previous examination.. --PELVIC ORGANS: The bladder is underfilled with thickened wall. Evaluation for cystitis advised.. No bladder stones. --BOWEL AND MESENTERY: Colon: No evidence of diverticulitis. Normal appendix. Small Bowel: Normal. No obstruction. Peritoneum/mesentery: No free air or free fluid. No mesenteric lymphadenopathy. --RETROPERITONEUM: Moderate atheromatous disease of the abdominal aorta. Slight dilatation of the di stal abdominal aorta measuring 2.5 cm. No retroperitoneal lymphadenopathy. IMPRESSION: CHEST: 1. No pulmonary embolism. 2. No acute cardiopulmonary pathology. 3. Lungs nodules unchanged from previous examination. ABDOMEN/PELVIS: 1. No evidence of appendicitis, diverticulitis or intestinal obstruction. 2. Multiple hypodensities in the liver suggestive of cysts. Ultrasound confirmation advised. 3. Bilateral renal cysts 4. Slight dilatation of the distal aorta measuring 2.5 cm. 5. Right fat-containing inguinal hernia. Reviewed, dictated and finalized at location A. IMPRESSION: CHEST: 1. No pulmonary embolism. 2. No acute cardiopulmonary pathology. 3. Lungs nodules unchanged from previous examination. ABDOMEN/PELVIS: 1. No evidence of appendicitis, diverticulitis or intestinal obstruction. 2. Multiple hypodensities in the liver suggestive of cysts. Ultrasound confirm ation advised. 3. Bilateral renal cysts 4. Slight dilatation of the distal aorta measuring 2.5 cm. 5. Right fat-containing inguinal hernia.
--- OUTSIDE RECORDS SUMMARY | 2024-08-31 16:13 | XMS_ITS | Encounter Summary ---
Author Organization [facility] Healthcare Address [address] [place] [address] Care Team Providers Care Motor Scooter Repairer Name Role Phone Young Guaman MD Unavailable [phone] Jahaira Avendano MD Unavailable Dana Haynes NP Primary Care Provider [phone] Encounter Details Date Type Department Care Team (Late st Contact Info) Description 04/12/2024 Documentation [id number] [place] [address] Alivia Colby, HUMZA Social History Tobacco Use Types Packs/Day Years Used Date Smoking Tobacco: Former Cigarettes 1 42 Smokeless Tobacco: Current Chew Alcohol Use Standard Drinks/Week Comments Yes 2 (1 standard drink = 0.6 oz pur e alcohol) OASIS D0700: Social Isolation Answer Da te Recorded Frequency of experiencing loneliness or isolatio n Never 07/15/2023 [facility] Utilities Answer Date Recorded In the past 12 months has th [employer] electric, gas, oil, or water company threatened [...] often do you attend chur ch or presybeterian services? Never 04/14/2024 Do you belong to any clubs o r organizations such as latter-day groups, unions, fraternal or athletic groups, or [...] place to sleep or slept in a penitentiary (including now)? No 07/03/2023 Housing Stability Vital Sign Answer Sandro e Recorded In the last 12 months, was t here a time when you were not able to pay the mortgage or rent on time? No 04/14/2024 In the past 12 months, how m any times have you moved where you were living? 0 04/14/2024 At any time in the past 12 m [facility], were you homeless or living in a penitentiary (including now)? No 04/14/2024 Personal Safety Answer Date Recorded Have you ever been in or are you currently in a harmful physical or emotional relationship or is someone making you feel afraid or unsafe? Denies 04/15/2024 Sex and Gender Information Value Date Recorded Sex Assigned at Not on file Legal Sex Male 2:15 AM FARMWORKER Gender Identity Male 05/24/2020 10:47 AM FARMWORKER Sexual Orientation Straight 05/24/2020 10 :47 AM FARMWORKER documented as of this encounter Functional Status [...] on filedocumented in this encounter Care Teams Motor Scooter Repairer Relationship Specialty Start Date End Date Dana Haynes NP [address] [place] [address] PCP - General Family Medicine 07/03/23 Young Guaman MD [address] [place] [address] [place] [address] 09/08/17 Jahaira Avendano MD [address] [facility], [place] [address] Consulting Physician Pain Management 01/02/21 documented as of this encounter
--- OUTSIDE RECORDS SUMMARY | 2024-08-31 16:13 | XMS_ITS | Clinical Summary ---
Author Organization [facility] Healthcare Address [address] [place] [address] Care Team Providers Care Environmental Health And Safety Intern Name Role Phone Young Guaman MD Unavailable [phone] Jahaira Avendano MD Unavailable Dana Haynes NP Primary Care Provider [phone] Allergies Active Allergy Reactions Criticality Noted Date Comments Oxycodone Rash Medium Oxycodone Evv-Lpwqwpcqw-Gkj Rash Medium 08/23/2017 Penicillins Unknown 08/23/2017 Childhood reaction Has tolerated PCN as an adult Tetracyclines Diarrhea,Vomiting Low 08/23/2017 Medications nortriptyline (PAMELOR) 50 mg capsuleIndicati ons:abdominal discomfort Take 1 capsule (50 mg total) by mouth nightly Active montelukast (SINGULAIR) 10 mg tabletIndicatio ns:Allergic Rhinitis Take 1 tablet (10 mg total) by mouth windows server architect before breakfast Active gabapentin (NEURONTIN) 300 mg capsuleIndicati ons:pain Take 2 capsules (600 mg total) by mouth nightly Active famotidine (PEPCID) 40 mg tabletIndicatio ns:reflux Take 1 tablet (40 mg total) by mouth daily 0 Active fluticasone propionate (FLONASE) 50 mcg/actuation nasal sprayIndication s:Allergic Rhinitis Administer 1 spray into each nostril 2 (two) times a day as needed for rhinitis 3 Active acetaminophen 500 mg capsuleIndicati ons:Fever,mild pain Take 1 capsule (500 mg total) by mouth every 6 (six) hours as needed for pain 5 Active aspirin 325 mg tabletIndicatio ns:prevention of thrombosis Take 1 tablet (325 mg total) by mouth daily 30 tablet 11 5 04/21/19 26 Active carvediloL (COREG) 12.5 mg tabletIndicatio ns:hypertension Take 1 tablet (12.5 mg total) by mouth 2 (two) times a day with meals 60 tablet 1 5 Active ferrous sulfate 325 mg (65 mg of elemental iron) tabletIndicatio ns:Iron Deficiency Anemia Take 1 tablet (325 mg total) by mouth 3 (three) times a day with meals 90 tablet 2 5 Active qq-kbv-tvlfg-K1 -lycopen-lutein 098-58-622-300 mcg tabletIndicatio ns:supplement Take 1 tablet by mouth daily. over the counter med Indications: supplement Active hydrOXYzine (ATARAX) 25 mg tabletIndicatio ns:anxiety Take 1 tablet (25 mg total) by mouth every 8 (eight) hours as needed for anxiety 30 tablet 5 Active HYDROcodone-austin taminophen (NORCO) 5-325 mg per tabletIndicatio ns:Pain,moderat e pain Take 1 tablet by mouth every 6 (six) hours as needed for pain 40 tablet 5 Active Additional Information Patient not taking.Reported on 07/27/2024 escitalopram (LEXAPRO) 10 mg tabletIndicatio ns:major depressive disorder Take 1 tablet (10 mg total) by mouth daily RX#[id number] by Dr Pipe Vivar Active rosuvastatin (CRESTOR) 20 mg tablet TAKE 1 TABLET BY MOUTH EVERY DAY AT NIGHT 90 tablet 1 5 Active Active Problems Problem Noted Date Diagnosed Date Draining postoperative wound 04/29/2024 Mediastinitis 04/24/2024 CAD, multiple vessel 04/13/2024 Gastroesophageal reflux disease without esophagi tis 04/13/2024 Primary hypertension 04/13/2024 Hypercholesterolemia 04/13/2024 Moderate protein-calorie malnutrition 07/06/2023 Abscess of upper lobe of left lung with pneumoni a 07/04/2023 Empyema 07/03/2023 Multifocal pneumonia 07/02/2023 Prostate cancer 09/09/2017 Tobacco use disorder 09/08/2017 Encounters Date Type Department Care Team Description 08/31/2024 Telephone [place] [address] [place] [phone] Anuel Kendall MD 08/05/2024 Telephone [place] [address] [place] [phone] Anuel Kendall MD 07/27/2024 1:15 PM CDT Office Visit [facility] [address] [place] [address] Jeanne Galvez MD Lung nodule (Primary Dx); Abscess of upper lobe of left lung with pneumonia (HCC); Cigarette nicotine dependence in remission; Gastroesophageal reflux disease without esophagitis 07/19/2024 Telephone [place] [address] [place] [phone] Anuel Kendall MD 07/06/2024 11:30 AM CDT Office Visit [place] [address] [place] [phone] Alondra Avila NP CAD, multiple vessel; Hx of CABG; History of prostate cancer; Cardiomyopathy, ischemic 06/29/2024 [facility]phone [facility] [address], [place] [address] Ketty Heredia MA Scheduling Appointments 06/15/2024 Telephone [place] [address] [place] [phone] Anuel Kendall MD 06/03/2024 9:57 AM CAR SHAKEOUT OPERATOR - 06/03/2024 11:59 PM CAR SHAKEOUT OPERATOR Hospital [facility] [address] [place] [address] Discharge Disposition: Discharge to home or self care 06/03/2024 9:00 AM CAR SHAKEOUT OPERATOR Home Care Visit [facility] - [address] [place] [address] Kyung Flynn RN SN NON OASIS DISCHARGE from Last 3 Months Surgical History Surgery Date Site/Laterality Comments HI CHOLECYSTECTOMY Cholecystectomy - (Added by TW Conv) [...] RCA, SVG to Ramus, SVG to OM2 HERNIA REPAIR VASECTOMY FRACTURE SURGERY ABDOMINAL SURGERY Medical History Medical History Date Comments HTN (hypertension) GERD (gastroesophageal reflux disease) Renal cancer (HCC) left 2012 Prostate cancer (HCC) dx 2018 PONV (postoperative nausea and vomiting) Arthritis Hiatal hernia Gallstones FH: kidney cancer Abdominal pain High blood pressure Hearing decreased, bilateral MIMA ATERAL HEARING AIDS Head injury 05/25/2020 Crush injury, wrist, left, sequela 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 Anxiety Family History Medical History Relation Name Comments Heart failure Maternal Grandfather Heart failure Maternal Grandmother Gma Stroke Maternal Grandmother Gma Heart attack Mother Mom Heart disease Mother Mom Heart failure Mother Mom Ovarian cancer Mother's Sister Ovarian Ca ncer - (Added by TW Conv) Heart disease Other 1 Heart Disease - (Added by TW Conv) Diabetes Other 2 Diabetes [facility] - (Added by TW Conv) Relation Name Status Comments Maternal Grandfather Maternal Grandmother Gma Mother Mom (Age 57) Mother's Sister Other 1 Other [...] materials from doctor or pharmacy Never 2024 [facility] Utilities Answer Date Recorded In the past 12 months has th e electric, gas, oil, or water company threatened [...] often do you attend chur ch or hinduism services? Never 04/28/2024 Do you belong to any clubs o r organizations such as shinto groups, unions, fraternal or athletic groups, or [...] place to sleep or slept in a [place] health care facility (including now)? No 07/03/2023 PHQ-9 Answer Date [...] any time in the past 12 m [facility], were you homeless or living in a [place] health care facility (including now)? No 04/28/2024 Personal Safety Answer Date Recorded Have you ever been in or are you currently in a harmful physical or emotional relationship or is someone making you feel afraid or unsafe? Denies 04/25/2024 Sex and Gender Information Value Date Recorded Sex Assigned at Not on file Legal Sex Male 2:15 AM CAR SHAKEOUT OPERATOR Gender Identity Male 05/24/2020 10:47 AM CAR SHAKEOUT OPERATOR Sexual Orientation Straight 05/24/2020 10 :47 AM CAR SHAKEOUT OPERATOR Obstetrics History Last Filed Vital Signs Vital Sign Reading Time Taken Comments Blood Pressure 153/93 07/27/2024 1:15 PM CDT Pulse 66 07/27/2024 1:15 PM CDT Temperature 36.3 C (97.4 F) 06/03/2024 9:48 AM CAR SHAKEOUT OPERATOR Respiratory Rate 18 06/03/2024 9:48 AM CAR SHAKEOUT OPERATOR Oxygen Saturation 98% 07/27/2024 1:15 PM CDT Inhaled Oxygen Concentration - - Weight 109.8 kg (242 lb) 07/27/2024 1:15 PM CDT Height 175.3 cm (5' 9) 07/27/2024 1:15 PM CDT Body Mass Index 35.74 07/27/2024 1:15 PM CDT Plan of Treatment Health Maintenance Due Date Last Done Comments Colon Cancer Screening-Colonoscopy 1964 Hepatitis C Screening 1964 Hepatitis B Screening 1982 Regular Well Visit/Exam 18-64 1982 Pneumococcal vaccine <65 (1 of 2 - PCV) 1983 Zoster Vaccine (1 of 2) 2014 Prostate Cancer Screening-PSA 10/10/2019 10/09/2017, 03/05/2017 Influenza Vaccine (Season Ended) 2024 Depression Screening 04/24/2025 04/24/2024, 04/24/19 25 DTaP/Tdap/Td Vaccine (2 - Td or Tdap) 11/20/2028 Medical Devices Implanted Type Area Galvanizer Device Identifier Shelf Expiration Date Model / Serial / Lot Other - See Comments Other - see comments Left: Arm Description:Metal teresa Procedures Procedure Name Priority Date/Time Associated Diagnosis Comments HEMOGLOBIN A1C Routine 06/03/2024 9:57 AM CAR SHAKEOUT OPERATOR IRON PROFILE W/ IBC Routine 06/03/2024 9 :57 AM CAR SHAKEOUT OPERATOR FERRITIN Routine 06/03/2024 9:57 AM CAR SHAKEOUT OPERATOR PSA SCREEN Routine 10/09/2017 7:39 AM CDT from Last 3 Months or Most Recently Relevant to Health Maintenance Results * (ABNORMAL) Iron profile w/ IBC (06/03/2024 9:57 AM CAR SHAKEOUT OPERATOR) Iron 58 50 - 150 mcg/dL TIBC 195(L) 250 - 400 mcg/dL [facility] Transferrin saturation 30 20 - 50 % [facility] Blood 06/03/2024 9:57 AM CAR SHAKEOUT OPERATOR 06/03/2024 1:12 PM CAR SHAKEOUT OPERATOR us Notinfile Unknown LAB BLOOD ORDERABLES Final Res ult Performing Organization Address [facility] de Phone Number [facility] [place] [address] * Hemoglobin A1c (06/03/2024 9:57 AM CAR SHAKEOUT OPERATOR) Hgb A1C 4.8 4.0 - 5.6 % Estimated Average Glucose 91 mg/dL [facility] Comment: The ADA recommends reporting an estimated Average Glucose (eAG) with all Hemoglobin A1c results using the equation derived from a study of 507 normal and diabetic adults. Minority populations were underrepresented and children were not included. (Diabetes Care 2020; 43(S1): S66-S76). The eAG is not equivalent to a fasting glucose. Blood 06/03/2024 9:57 AM CAR SHAKEOUT OPERATOR 06/03/2024 1:13 PM CAR SHAKEOUT OPERATOR us Notinfile Unknown LAB BLOOD ORDERABLES Final Res ult Performing Organization Address [facility] de Phone Number [facility] [place] [address] * Ferritin (06/03/2024 9:57 AM CAR SHAKEOUT OPERATOR) Ferritin 56 30 - 400 ng/mL Blood 06/03/2024 9:57 AM CAR SHAKEOUT OPERATOR 06/03/2024 1:12 PM CAR SHAKEOUT OPERATOR us Notinfile Unknown LAB BLOOD ORDERABLES Final Res ult Performing Organization Address [facility] de Phone Number [facility] [place] [address] * PSA screen (10/09/2017 7:39 AM CDT) PSA <0.1 0.0 - 4.0 ng/mL [facility] - 01 Comment: [place] ECLIA methodology. According to the [place]ym[place] U[employer] Association, Serum PSA should decrease and [...] - 10/10/2017 8:32 AM CDT Performed at: [facility] [address] [id number] Salesperson Hosiery: Santiago Juárez PhD, Phone: [phone] Fredo Joy MD LAB BLOOD ORDERABLES Gail matamoros Result [facility] - 01 from Last 3 Months or Most Recently Relevant to Health Maintenance Insurance [employer] [employer] ACCESS CHOICE [employer] [employer] ACCESS CHOICE Advance Directives For more information, please contact: [phone] * Full Code (Latest Code Status on File) Date Activated Date Inactivated Comments 04/24/2024 8:06 PM 04/29/2024 8:30 PM * Full Code Date Activated Date Inactivated Comments 04/13/2024 10:00 AM 04/21/2024 2:55 PM * Full Code Date Activated Date Inactivated Comments 07/02/2023 4:19 AM 07/14/2023 6:29 PM * Full Code Date Activated Date Inactivated Comments 09/08/2017 12:32 PM 09/09/2017 9:12 PM Care Teams Environmental Health And Safety Intern Relationship Specialty Start Date End Date Dana Haynes NP [address] [place] [address] PCP - General Family Medicine 07/03/23 Young Guaman MD [address] [facility] [address] [place] [address] 09/08/17 Jahaira Avendano MD [address] [facility], [facility] [address] [place] [address] Consulting Physician Pain Management 01/02/21
--- OUTSIDE RECORDS SUMMARY | 2024-08-31 16:13 | XMS_ITS | Referral Summary ---
Author Organization [facility] Healthcare Address [address] [place] [address] Care Team Providers Care Drapery Counselor Name Role Phone Young Guaman MD Unavailable [phone] Jahaira Avendano MD Unavailable Dana Haynes NP Primary Care Provider [phone] Encounters Date Type Department Care Team Description 08/31/2024 Telephone [facility] [address] [facility] [address] [place] [phone] Anuel Kendall MD 08/05/2024 Telephone [facility] [address] [place] [address] [address] [place] [phone] Anuel Kendall MD 07/27/2024 1:15 PM CDT Office Visit [facility] [address] [facility] [address] [place] [phone] Jeanne Galvez MD Lung nodule (Primary Dx); Abscess of upper lobe of left lung with pneumonia (HCC); Cigarette nicotine dependence in remission; Gastroesophageal reflux disease without esophagitis 07/19/2024 Telephone [facility] [address] [facility] [address] [place] [phone] Anuel Kendall MD 07/06/2024 11:30 AM CDT Office Visit [facility] [address] [facility] [address] [place] [phone] Alondra Avila NP CAD, multiple vessel; Hx of CABG; History of prostate cancer; Cardiomyopathy, ischemic 06/29/2024 Telephone [facility] [address] [facility] [address] [place] [address] Ketty Heredia MA Scheduling Appointments 06/15/2024 Telephone [facility] Cardiology [address] [facility] [address] [place] [phone] Anuel Kendall MD 06/03/2024 9:57 AM KILN FIRER HELPER - 06/03/2024 11:59 PM KILN FIRER HELPER Hospital Encounter [facility] [address] [place] [address] Discharge Disposition: Discharge to home or self care 06/03/2024 9:00 AM KILN FIRER HELPER Home Care Visit [facility] - [address] [place] [address] Kyung Flynn RN SN NON OASIS DISCHARGE from Last 3 Months Allergies Active Allergy Reactions Criticality Noted Date Comments Oxycodone Rash Medium Oxycodone Nme-Grqpozlst-Awk Rash Medium 08/23/2017 Penicillins Unknown 08/23/2017 Childhood reaction Has tolerated PCN as an adult Tetracyclines Diarrhea,Vomiting Low 08/23/2017 Medications nortriptyline (PAMELOR) 50 mg capsuleIndicati ons:abdominal discomfort Take 1 capsule (50 mg total) by mouth nightly Active montelukast (SINGULAIR) 10 mg tabletIndicatio ns:Allergic Rhinitis Take 1 tablet (10 mg total) by mouth eye specialist before breakfast Active gabapentin (NEURONTIN) 300 mg [...] with meals 90 tablet 2 5 Active cg-men-zlibj-K1 -lycopen-lutein 011-16-542-300 mcg tabletIndicatio ns:supplement Take 1 tablet by [...] tablet (10 mg total) by mouth daily RX#[id number] by Dr Pipe Vivar Active rosuvastatin (CRESTOR) [...] materials from doctor or pharmacy Never 2024 [facility] Utilities Answer Date Recorded In the past 12 months has e [employer], oil, or water [employer] threatened to shut off services in your [...] often do you attend chur ch or pentecostalism services? Never 04/28/2024 Do you belong to any clubs o r organizations such as jain groups, unions, fraternal or athletic groups, or [...] place to sleep or slept in a fpc (including now)? No 07/03/2023 PHQ-9 Answer Date [...] any time in the past 12 m [facility], were you homeless or living in a fpc (including now)? No 04/28/2024 Personal Safety Answer Date Recorded Have you ever been in or are you currently in a harmful physical or emotional relationship or is someone making you feel afraid or unsafe? Denies 04/25/2024 Sex and Gender Information Value Date Recorded Sex Assigned at Not on file Legal Sex Male 2:15 AM KILN FIRER HELPER Gender Identity Male 05/24/2020 10:47 AM KILN FIRER HELPER Sexual Orientation Straight 05/24/2020 10 :47 AM KILN FIRER HELPER Last Filed Vital Signs Vital Sign Reading Time Taken Comments Blood Pressure 153/93 07/27/2024 1:15 PM CDT Pulse 66 07/27/2024 1:15 PM CDT Temperature 36.3 C (97.4 F) 06/03/2024 9:48 AM KILN FIRER HELPER Respiratory Rate 18 06/03/2024 9:48 AM KILN FIRER HELPER Oxygen Saturation 98% 07/27/2024 1:15 PM CDT Inhaled Oxygen Concentration - - Weight 109.8 kg (242 lb) 07/27/2024 1:15 PM CDT Height 175.3 cm (5' 9) 07/27/2024 1:15 PM CDT Body Mass Index 35.74 07/27/2024 1:15 PM CDT Plan of Treatment Not on file Medical Devices Implanted Type Area Health Insurance Sales Agent Device Identifier Shelf Expiration Date Model / Serial / Lot Other - See Comments Other - see comments Left: Arm Description:Metal teresa Procedures Procedure Name Priority Date/Time Associated Diagnosis Comments HEMOGLOBIN A1C Routine 06/03/2024 9:57 AM KILN FIRER HELPER IRON PROFILE W/ IBC Routine 06/03/2024 9 :57 AM KILN FIRER HELPER FERRITIN Routine 06/03/2024 9:57 AM KILN FIRER HELPER PSA SCREEN Routine 10/09/2017 7:39 AM CDT from Last 3 Months or Most Recently Relevant to Health Maintenance Results * (ABNORMAL) Iron profile w/ IBC (06/03/2024 9:57 AM KILN FIRER HELPER) Iron 58 50 - 150 mcg/dL TIBC 195(L) 250 - 400 mcg/dL [facility] Transferrin saturation 30 20 - 50 % [facility] Blood 06/03/2024 9:57 AM KILN FIRER HELPER 06/03/2024 1:12 PM KILN FIRER HELPER us Notinfile Unknown LAB BLOOD ORDERABLES Final Res ult Performing Organization Address [facility] de Phone Number [facility] [place] [address] * Hemoglobin A1c (06/03/2024 9:57 AM KILN FIRER HELPER) Hgb A1C 4.8 4.0 - 5.6 % Estimated Average Glucose 91 mg/dL [facility] Comment: The ADA recommends reporting an estimated Average Glucose (eAG) with all Hemoglobin A1c results using the equation derived from a study of 507 normal and diabetic adults. Minority populations were underrepresented and children were not included. (Diabetes Care 2020; 43(S1): S66-S76). The eAG is not equivalent to a fasting glucose. Blood 06/03/2024 9:57 AM KILN FIRER HELPER 06/03/2024 1:13 PM KILN FIRER HELPER us Notinfile Unknown LAB BLOOD ORDERABLES Final Res ult Performing Organization Address [facility] de Phone Number [facility] [place] [address] * Ferritin (06/03/2024 9:57 AM KILN FIRER HELPER) Pathologist [facility] Ferritin 56 30 - 400 ng/mL Blood 06/03/2024 9:57 AM KILN FIRER HELPER 06/03/2024 1:12 PM KILN FIRER HELPER us Notinfile Unknown LAB BLOOD ORDERABLES Final Res ult Performing Organization Address [facility] de Phone Number [facility] [place] [address] * PSA screen (10/09/2017 7:39 AM CDT) PSA <0.1 0.0 - 4.0 ng/mL [facility] - 01 Comment: [place] ECLIA methodology. According to the English Urological Association, Serum PSA should decrease and [...] 10/10/2017 8:32 AM CDT Performed at: - [address] [id number] Dry Ice Maker: Santiago Juárez PhD, Phone: [phone] Fredo Joy MD LAB BLOOD ORDERABLES Gail matamoros [facility] - 01 from Last 3 Months or Most Recently Relevant to Health Maintenance Insurance [employer] ACCESS CHOICE [employer] ACCESS CHOICE Advance Directives For more information, please contact: [phone] * Full Code (Latest Code Status on File) Date Activated Date Inactivated Comments 04/24/2024 8:06 PM 04/29/2024 8:30 PM * Full Code Date Activated Date Inactivated Comments 04/13/2024 10:00 AM 04/21/2024 2:55 PM * Full Code Date Activated Date Inactivated Comments 07/02/2023 4:19 AM 07/14/2023 6:29 PM * Full Code Date Activated Date Inactivated Comments 09/08/2017 12:32 PM 09/09/2017 9:12 PM Care Teams Drapery Counselor Relationship Specialty Start Date End Date Dana Haynes NP [address] [place] [address] PCP - General Family Medicine 07/03/23 Young Guaman MD [address] [facility] [address] [place] [address] 09/08/17 Jahaira Avendano MD [address] [facility], [facility] [address] [place] [address] Consulting Physician Pain Management 01/02/21
--- OUTSIDE RECORDS SUMMARY | 2024-08-31 16:13 | XMS_ITS | Encounter Summary ---
Author Organization [facility] Healthcare Address [address] [place] [address] Care Team Providers Care Cupola Man Name Role Phone Young Guaman MD Unavailable [phone] Jahaira Avendano MD Unavailable Dana Haynes NP Primary Care Provider [phone] Encounter Details Date Type Department Care Team (Late st Contact Info) Description 08/31/2024 Telephone [facility] Medical Group Cardiology [address] [place] [address] Anuel Kendall MD [address] [place], [place] [id number] Social History Tobacco Use Types Packs/Day Years [...] materials from doctor or pharmacy Never 2024 [facility] Utilities Answer Date Recorded In the past 12 months has th e electric, gas, oil, or water [employer] threatened to shut off services in your [...] often do you attend chur ch or anabaptism services? Never 04/28/2024 Do you belong to any clubs o r organizations such as advent groups, unions, fraternal or athletic groups, or [...] place to sleep or slept in a half-way (including now)? No 07/03/2023 PHQ-9 Answer Date [...] any time in the past 12 m [facility], were you homeless or living in a half-way (including now)? No 04/28/2024 Personal Safety Answer Date Recorded Have you ever been in or are you currently in a harmful physical or emotional relationship or is someone making you feel afraid or unsafe? Denies 04/25/2024 Sex and Gender Information Value Date Recorded Sex Assigned at Not on file Legal Sex Male 2:15 AM SCREW MACHINE OPERATOR SINGLE SPINDLE Gender Identity Male 05/24/2020 10:47 AM SCREW MACHINE OPERATOR SINGLE SPINDLE Sexual Orientation Straight 05/24/2020 10 :47 AM SCREW MACHINE OPERATOR SINGLE SPINDLE documented as of this encounter Miscellaneous Notes * Telephone Encounter - Chavo Campo RN - 08/31/2024 12:15 PM CDT Spoke with pt. Pt reports having chest tightness that he describes as a squeezing sensation last Friday while at work. Pt reports a physically demanding job. Pt states that he took an aspirin oncehe got home from work and that along with rest resolved his issue. Pt states that he has had the same squeezing sensation at lower intensity every day since Friday, and has been off of work since then, spending the weekend at the [employer]. Pt states that he has to return to work today. Advised pt toseek emergency care for recurrent symptoms that are more intense or do not resolve with rest. Pt verbalizes understanding. WK please advise. Thanks! * Telephone Encounter - Lucrecia See - 08/31/2024 11:45 AM CDT Pt requesting a call back to discuss the tightness in his chest he has been having since Friday.He said it happens when he overexerts himself. Please advise thank you Contact: documented in this encounter Plan of Treatment Not on file documented as of this encounter Visit Diagnoses Not on filedocumented in this encounter Care Teams Cupola Man Relationship Specialty Start Date End Date Dana Haynes NP [address] [place] [address] PCP - General Family Medicine 07/03/23 Young Guaman MD [address] [facility] [address] [place] [address] 09/08/17 Jahaira Avendano MD [facility], [facility] [address] [place] [address] Consulting Physician Pain Management 01/02/21 documented as of this encounter
--- OUTSIDE RECORDS SUMMARY | 2024-08-31 16:13 | XMS_ITS | Clinical Summary ---
Author Organization [facility] Address [address] [facility] [place] [address] Care Team Providers Care Coagulator Name Role Phone Obey Ma Primary Care Provider [phone] Source Comments [facility],non-owned Affiliates and Associated Physician Practices is amultiple site organization consisting of ambulatory clinics and hospital sitesin [place], [place], [place] and [place]. This disclosure is being madepursuant to the Care Everywhere program and may not contain all information available regarding this patient. Last updated 17.[facility] Allergies Active Allergy Reactions Criticality Noted Date Comments Oxycodone Rash Medium 07/27/2020 Oxycodone-Aspirin Rash Medium 08/23/2017 Penicillins Unknown 08/23/2017 Tetracyclines Diarrhea,Unknown,Vomiting Low 018 Medications * Be aware that medications may not be up to date on this document. Alwaysverify current medications with the patient. pantoprazole EC (PROTONIX) 40 MG tablet Take [...] daily 07/17/2020 Active topiramate (TOPAMAX) 50 MG tabletIndication s:Occipital neuralgia of left side Take 1 (one) tablet by mouth 2 times daily 180 tablet 3 08/15/2020 Active valsartan-hydroC HLOROthiazide (DIOVAN HCT) 320-25 MG tablet Take 1 [...] Assigned at Male 08/07/2023 9:36 AM CDT Legal Sex Male 5:36 PM PSYCHOMETRICIAN Gender Identity Male 08/07/2023 9:36 AM CDT [...] 1:07 PM CDT Height 177.8 cm (5' 10) 11/30/2020 1:07 PM CDT Body Mass Index 40.18 11/30/2020 1:07 PM CDT Plan of Treatment Health Maintenance Due Date Last Done Comments NATALIYA (AGES 45-75) - COL ON CA SCREENING [...] VACCINE (1 - 2023-2 5 season) 2023 DEPRESSION SCREENING 04/07/2024 Respiratory Syncytial Virus (RSV) Vaccine Pt: or over 60 yrs (1 - Risk 60-74 years 1-dose series) 2024 INFLUENZA VACCINE (Season Ended) 2024 HEPATITIS B VACCINE Aged Out No [...] on patient's age to complete this topic Insurance ANTH Care Teams Coagulator Relationship Specialty Start Date End Date Obey Ma DO [address] [place] [address] PCP - General 06/19/20
--- OUTSIDE RECORDS SUMMARY | 2024-08-31 16:13 | XMS_ITS ---
Author Organization [facility] Healthcare Address [address] [place] [address] Care Team Providers Care Edger Operator Name Role Phone Young Guaman MD Unavailable Jahaira Avendano MD Unavailable Dana Haynes NP Primary Care Provider [phone] Active Problems Problem Noted Date Diagnosed Date [...]
--- NOTE | 2024-08-31 16:17 | ECG_ITS ---
Test Date: 2024-08-31 16:23:54 Measurements Intervals [place] Rate: 73 P: 33 MO: 165 QRS: 37 QRSD: 98 T: 45 QT: 369 QTc: 407 Interpretive Statements SINUS RHYTHM Compared to ECG 04/09/2024 22:30:18 Myocardial infarct finding no longer present Electronically Signed On 09-01-2024 16:31:14 CDT by Carina Negron M.D.
[2024-08-31 16:18] VITALS: BP 166/80; PULSE 71; RESP 16; TEMP 36.1; O2SAT 99
[2024-08-31 16:35] LABS: Basophils Absolute Auto 0.1 K/mm3 (0.0-0.1); Basophils Percent Auto 0.8 % (0.2-1.2); Eosinophils Absolute Auto 0.1 K/mm3 (0-0.3); Eosinophils Percent Auto 1.7 % (0-4.4); Hematocrit 44.6 % (42.0-52.0); Hemoglobin 14.4 g/dL (14.0-18.0); Immature Granulocyte Absolute 0.01 K/mm3 (0.00-0.031); Immature Granulocyte Percent A 0.1 % (0-0.5); Mean Corpuscular HGB Conc 32.3 g/dl (32-36); Mean Corpuscular Hemoglobin 27.9 pg (26-34); Mean Corpuscular Volume 86.4 fl (80-100); Mean Platelet Volume 10.4 fl (7.4-10.4); Monocytes Absolute Auto 0.6 K/mm3 (0.1-0.6); Monocytes Percent Auto 7.4 % (2.6-8.5); Neutrophils Absolute Auto 5.9 K/mm3 (1.3-6.7); Platelet Count Result 207 k/mm3 (150-375); Red Blood Count 5.16 M/mm3 (4.6-6.20); Red Cell Distribution Width 14.3 % (11.5-14.5); White Blood Count 7.7 K/mm3 (4.5-10.0)
[2024-08-31 16:44] LABS: Alanine Aminotransferase 61 U/L (6-50); Albumin Level 4.4 g/dL (3.5-5.1); Alkaline Phosphatase 44 U/L (38-126); Anion Gap 8 mmol/L (4-12); Aspartate Amino Transferase 74 U/L (17-59); Bilirubin,Total 0.4 mg/dL (0.2-1.3); Blood Urea Nitrogen 15 mg/dL (9-20); Calcium 9.3 mg/dL (8.4-10.2); Carbon Dioxide 24 mmol/L (22-30); Chloride 105 mmol/L (98-107); Estimated CRCL calculation 93 ml/min; Estimated Glomerular Filt Rate > 60; Glucose 92 mg/dL (65-110); Lipase 129 U/L (23-300); Potassium 4.2 mmol/L (3.4-5.0); Sodium 137 mmol/L (137-145)
[2024-08-31 16:46] LABS: INR 0.9; Prothrombin Time 12.3 Seconds (11.1-14.7)
[2024-08-31 16:47] LABS: Partial Thromboplastin Time 27.3 Seconds (22.3-36.8)
[2024-08-31] MEDS: ASPIRIN 81 MG CHEWABLE TABLET 324 MG PO (16:51)
[2024-08-31 16:56] LABS: Troponin I < 0.012 ng/mL (0.000-0.034)
[2024-08-31 17:00] VITALS: O2SAT 100
--- OUTSIDE RECORDS SUMMARY | 2024-08-31 17:25 | XMS_ITS | Clinical Summary ---
Author Organization [facility] Healthcare Address [address] [place] [address] Care Team Providers Care Tunnel Elastic Operator Lockstitch Name Role Phone Young Guaman MD Unavailable [phone] Jahaira Avendano MD Unavailable Dana Haynes NP Primary Care Provider [phone] Allergies Active Allergy Reactions Criticality Noted Date Comments Oxycodone Rash Medium Oxycodone Hja-Getdxfnqt-Gih Rash Medium 08/23/2017 Penicillins Unknown 08/23/2017 Childhood reaction Has tolerated PCN as an adult Tetracyclines Diarrhea,Vomiting Low 08/23/2017 Medications nortriptyline (PAMELOR) 50 mg capsuleIndicati ons:abdominal discomfort Take 1 capsule (50 mg total) by mouth nightly Active montelukast (SINGULAIR) 10 mg tabletIndicatio ns:Allergic Rhinitis Take 1 tablet (10 mg total) by mouth analytics senior manager before breakfast Active gabapentin (NEURONTIN) 300 mg [...] with meals 90 tablet 2 5 Active rp-jsz-esnpi-K1 -lycopen-lutein 319-65-057-300 mcg tabletIndicatio ns:supplement Take 1 tablet by [...] tablet (10 mg total) by mouth daily RX#[id number] by Dr Pipe Vivar Active rosuvastatin (CRESTOR) [...] Type Department Care Team Description 08/31/2024 Telephone [place] [address] [place] [phone] Anuel Kendall MD 08/05/2024 Telephone [place] [address] [place] [phone] Anuel Kendall MD 07/27/2024 1:15 PM CDT Office Visit [facility] [address] [place] [address] Jeanne Galvez MD Lung nodule (Primary Dx); Abscess of upper lobe of left lung with pneumonia (HCC); Cigarette nicotine dependence in remission; Gastroesophageal reflux disease without esophagitis 07/19/2024 Telephone [place] [address] [place] [phone] Anuel Kendall MD 07/06/2024 11:30 AM CDT Office Visit [place] [address] [place] [phone] Alondra Avila NP CAD, multiple vessel; Hx of CABG; History of prostate cancer; Cardiomyopathy, ischemic 06/29/2024 [facility]phone [facility] [address] [facility] [address] [address] Ketty Heredia MA Scheduling Appointments 06/15/2024 Telephone [place] [address] [place] [phone] Anuel Kendall MD 06/03/2024 9:57 AM HAND POLISHER - 06/03/2024 11:59 PM HAND POLISHER Hospital Encounter [facility] [address] [place] [address] Discharge Disposition: Discharge to home or self care 06/03/2024 9:00 AM HAND POLISHER Home Care Visit [facility] - [address] [place] [address] Kyung Flynn RN SN NON OASIS DISCHARGE from Last 3 Months Surgical History Surgery Date Site/Laterality Comments UT CHOLECYSTECTOMY Cholecystectomy - (Added by TW Conv) [...] injury, wrist, left, sequela 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 Anxiety Family History Medical History Relation Name Comments Heart failure Maternal Grandfather Heart failure Maternal Grandmother Gma Stroke Maternal Grandmother Gma Heart attack Mother Mom Heart disease Mother Mom Heart failure Mother Mom Ovarian cancer Mother's Sister Ovarian Ca ncer - (Added by TW Conv) Heart disease Other 1 Heart Disease - (Added by TW Conv) Diabetes Other 2 Diabetes [facility] - (Added by TW Conv) [...] materials from doctor or pharmacy Never 2024 [facility] Utilities Answer Date Recorded In the past [...] often do you attend chur ch or moravian services? Never 04/28/2024 Do you belong to any clubs o r organizations such as catholic groups, unions, fraternal or athletic groups, or [...] place to sleep or slept in a usp (including now)? No 07/03/2023 PHQ-9 Answer Date [...] any time in the past [address] [facility], were you homeless or living in a usp (including now)? No 04/28/2024 Personal Safety Answer Date Recorded Have you ever been in or are you currently in a harmful physical or emotional relationship or is someone making you feel afraid or unsafe? Denies 04/25/2024 Sex and Gender Information Value Date Recorded Sex Assigned at Not on file Legal Sex Male 2:15 AM HAND POLISHER Gender Identity Male 05/24/2020 10:47 AM HAND POLISHER Sexual Orientation Straight 05/24/2020 10 :47 AM HAND POLISHER Obstetrics History Last Filed Vital Signs Vital Sign Reading Time Taken Comments Blood Pressure 153/93 07/27/2024 1:15 PM CDT Pulse 66 07/27/2024 1:15 PM CDT Temperature 36.3 C (97.4 F) 06/03/2024 9:48 AM HAND POLISHER Respiratory Rate 18 06/03/2024 9:48 AM HAND POLISHER Oxygen Saturation 98% 07/27/2024 1:15 PM CDT [...] Tdap) 11/20/2028 Medical Devices Implanted Type Area Reservations Sales Supervisor Device Identifier Shelf Expiration Date Model / Serial / Lot Other - See Comments Other - see comments Left: Arm Description:Metal teresa Procedures Procedure Name Priority Date/Time Associated Diagnosis Comments HEMOGLOBIN A1C Routine 06/03/2024 9:57 AM HAND POLISHER IRON PROFILE W/ IBC Routine 06/03/2024 9 :57 AM HAND POLISHER FERRITIN Routine 06/03/2024 9:57 AM HAND POLISHER PSA SCREEN Routine 10/09/2017 7:39 AM CDT from Last 3 Months or Most Recently Relevant to Health Maintenance Results * (ABNORMAL) Iron profile w/ IBC (06/03/2024 9:57 AM HAND POLISHER) Iron 58 50 - 150 mcg/dL TIBC 195(L) 250 - 400 mcg/dL [facility] Transferrin saturation 30 20 - 50 % [facility] Blood 06/03/2024 9:57 AM HAND POLISHER 06/03/2024 1:12 PM HAND POLISHER us Notinfile Unknown LAB BLOOD ORDERABLES Final Res ult Performing Organization Address [facility] de Phone Number [facility] [place] [place] [address] * Hemoglobin A1c (06/03/2024 9:57 AM HAND POLISHER) Hgb A1C 4.8 4.0 - 5.6 % Estimated Average Glucose 91 mg/dL [facility] Comment: The ADA recommends reporting an estimated Average Glucose (eAG) with all Hemoglobin A1c results using the equation derived from a study of 507 normal and diabetic adults. Minority populations were underrepresented and children were not included. (Diabetes Care 2020; 43(S1): S66-S76). The eAG is not equivalent to a fasting glucose. Blood 06/03/2024 9:57 AM HAND POLISHER 06/03/2024 1:13 PM HAND POLISHER us Notinfile Unknown LAB BLOOD ORDERABLES Final Res ult Performing Organization Address [facility] de Phone Number [facility] [place] [place] [address] * Ferritin (06/03/2024 9:57 AM HAND POLISHER) Ferritin 56 30 - 400 ng/mL Blood 06/03/2024 9:57 AM HAND POLISHER 06/03/2024 1:12 PM HAND POLISHER us Notinfile Unknown LAB BLOOD ORDERABLES Final Res ult Performing Organization Address [facility] de Phone Number [facility] [place] [place] [address] * PSA screen (10/09/2017 7:39 AM CDT) PSA <0.1 0.0 - 4.0 ng/mL [facility] 01 Comment: [place] ECLIA methodology. According to the [place] [employer], Serum PSA should decrease and [...] 10/10/2017 8:32 AM CDT Performed at: [facility] [address] [id number] Catalogue And Special Products Manager: Santiago Juárez PhD, Phone: [phone] Fredo Joy MD LAB BLOOD ORDERABLES Gail matamoros Result [facility] 01 from Last 3 Months or Most Recently Relevant to Health Maintenance Insurance [employer] ACCESS CHOICE [employer] ACCESS CHOICE Advance Directives For more information, please contact: [phone] * Full Code (Latest Code Status on File) Date Activated Date Inactivated Comments 04/24/2024 8:06 PM 04/29/2024 8:30 PM * Full Code Date Activated Date Inactivated Comments 04/13/2024 10:00 AM 04/21/2024 2:55 PM * Full Code Date Activated Date Inactivated Comments 07/02/2023 4:19 AM 07/14/2023 6:29 PM * Full Code Date Activated Date Inactivated Comments 09/08/2017 12:32 PM 09/09/2017 9:12 PM Care Teams Tunnel Elastic Operator Lockstitch Relationship Specialty Start Date End Date Dana Haynes NP [address] [place] [address] PCP - General Family Medicine 07/03/23 Young Guaman MD [address] [facility] [address] [place] [address] 09/08/17 Jahaira Avendano MD [address] [facility], [facility] [address] [place] [address] Consulting Physician Pain Management 01/02/21
--- OUTSIDE RECORDS SUMMARY | 2024-08-31 17:25 | XMS_ITS | Encounter Summary ---
Author Organization [facility] Healthcare Address [address] [place] [address] Care Team Providers Care Sheet Metal Worker Name Role Phone Young Guaman MD Unavailable [phone] Jahaira Avendano MD Unavailable Dana Haynes NP Primary Care Provider [phone] Encounter Details Date Type Department Care Team (Late st Contact Info) Description 08/31/2024 Telephone [facility] Cardiology [address] [place] [address] Anuel Kendall MD [address] [place], [place] [id number] Social History Tobacco Use Types Packs/Day Years [...] materials from doctor or pharmacy Never 2024 [facility] Utilities Answer Date Recorded In the past 12 months has th e electric, gas, oil, or water [employer] threatened to shut off services in your [...] often do you attend chur ch or yarsani services? Never 04/28/2024 Do you belong to any clubs o r organizations such as mu-ism groups, unions, fraternal or athletic groups, or [...] place to sleep or slept in a chcf (including now)? No 07/03/2023 PHQ-9 Answer Date [...] any time in the past 12 m [facility], were you homeless or living in a chcf (including now)? No 04/28/2024 Personal Safety Answer Date Recorded Have you ever been in or are you currently in a harmful physical or emotional relationship or is someone making you feel afraid or unsafe? Denies 04/25/2024 Sex and Gender Information Value Date Recorded Sex Assigned at Not on file Legal Sex Male 2:15 AM LEARNING AND DEVELOPMENT SPECIALIST Gender Identity Male 05/24/2020 10:47 AM LEARNING AND DEVELOPMENT SPECIALIST Sexual Orientation Straight 05/24/2020 10 :47 AM LEARNING AND DEVELOPMENT SPECIALIST documented as of this encounter Miscellaneous Notes [...] on filedocumented in this encounter Care Teams Sheet Metal Worker Relationship Specialty Start Date End Date Dana Haynes NP [address] [place] [address] PCP - General Family Medicine 07/03/23 Young Guaman MD [address] [facility] [address] [place] [address] 09/08/17 Jahaira Avendano MD [facility], [facility] [address] [place] [address] Consulting Physician Pain Management 01/02/21 documented as of this encounter
--- OUTSIDE RECORDS SUMMARY | 2024-08-31 17:25 | XMS_ITS | Clinical Summary ---
Author Organization [facility] Address [address] [facility] [place] [address] Care Team Providers Care Fur Grader Name Role Phone Obey Ma Primary Care Provider [phone] Source Comments [facility],non-owned Affiliates and Associated Physician Practices is amultiple site organization consisting of ambulatory clinics and hospital sitesin [place], [place] and [place]. This disclosure is being madepursuant to the Care Everywhere program and may not contain all information available regarding this patient. Last updated 17.[facility] Allergies Active Allergy Reactions Criticality Noted [...] AM CDT Legal Sex Male 5:36 PM LAST SORTER Gender Identity Male 08/07/2023 9:36 AM CDT [...] complete this topic Insurance ANTH Care Teams Fur Grader Relationship Specialty Start Date End Date Obey Ma DO [address] [place] [address] PCP - General 06/19/20
--- OUTSIDE RECORDS SUMMARY | 2024-08-31 17:25 | XMS_ITS | Referral Summary ---
Author Organization [facility] Healthcare Address [address] [place] [address] Care Team Providers Care Flatwork Assembler Name Role Phone Young Guaman MD Unavailable [phone] Jahaira Avendano MD Unavailable Dana Haynes NP Primary Care Provider [phone] Encounters Date Type Department Care Team Description 08/31/2024 Telephone [facility] Cardiology [address] [facility] [address] [place] [phone] Anuel Kendall MD 08/05/2024 Telephone [facility] Cardiology [address] [place] [address] [address] [place] [phone] Anuel Kendall MD 07/27/2024 1:15 PM CDT Office Visit [facility] [address] [facility] [address] [place] [phone] Jeanne Galvez MD Lung nodule (Primary Dx); Abscess of upper lobe of left lung with pneumonia (HCC); Cigarette nicotine dependence in remission; Gastroesophageal reflux disease without esophagitis 07/19/2024 Telephone [facility] Cardiology [address] [facility] [address] [place] [phone] Anuel Kendall MD 07/06/2024 11:30 AM CDT Office Visit [facility] Cardiology [address] [facility] [address] [place] [phone] Alondra Avila NP CAD, multiple vessel; Hx of CABG; History of prostate cancer; Cardiomyopathy, ischemic 06/29/2024 Telephone [facility] [address] [facility] [address] [place] [address] Ketty Heredia MA Scheduling Appointments 06/15/2024 Telephone [facility] Cardiology [address] [facility] [address] [place] [phone] Anuel Kendall MD 06/03/2024 9:57 AM SANDING MACHINE OPERATOR - 06/03/2024 11:59 PM SANDING MACHINE OPERATOR Hospital Encounter [facility] [address] [place] [address] Discharge Disposition: Discharge to home or self care 06/03/2024 9:00 AM SANDING MACHINE OPERATOR Home Care Visit [facility] - [address] [place] [address] Kyung Flynn RN SN NON OASIS DISCHARGE from Last 3 Months Allergies Active Allergy Reactions Criticality Noted Date Comments Oxycodone Rash Medium Oxycodone Rud-Qszhvxflu-Loq Rash Medium 08/23/2017 Penicillins Unknown 08/23/2017 Childhood reaction Has tolerated PCN as an adult Tetracyclines Diarrhea,Vomiting Low 08/23/2017 Medications nortriptyline (PAMELOR) 50 mg capsuleIndicati ons:abdominal discomfort Take 1 capsule (50 mg total) by mouth nightly Active montelukast (SINGULAIR) 10 mg tabletIndicatio ns:Allergic Rhinitis Take 1 tablet (10 mg total) by mouth wire brusher before breakfast Active gabapentin (NEURONTIN) 300 mg [...] with meals 90 tablet 2 5 Active ax-wgg-vvcac-K1 -lycopen-lutein [id number] mcg tabletIndicatio ns:supplement Take 1 tablet by [...] tablet (10 mg total) by mouth daily RX#[id number] by Dr Pipe Vivar Active rosuvastatin (CRESTOR) [...] materials from doctor or pharmacy Never 2024 [facility] Utilities Answer Date Recorded In the past 12 months has e [employer], oil, or water [employer] threatened to shut off services in your [...] any clubs o r organizations such as rastafari groups, unions, fraternal or athletic groups, or [...] to sleep or slept in a senior care (including now)? No 07/03/2023 PHQ-9 Answer Date [...] you homeless or living in a senior care (including now)? No 04/28/2024 Personal Safety Answer Date Recorded Have you ever been in or are you currently in a harmful physical or emotional relationship or is someone making you feel afraid or unsafe? Denies 04/25/2024 Sex and Gender Information Value Date Recorded Sex Assigned at Not on file Legal Sex Male 2:15 AM SANDING MACHINE OPERATOR Gender Identity Male 05/24/2020 10:47 AM SANDING MACHINE OPERATOR Sexual Orientation Straight 05/24/2020 10 :47 AM SANDING MACHINE OPERATOR Last Filed Vital Signs Vital Sign Reading Time Taken Comments Blood Pressure 153/93 07/27/2024 1:15 PM CDT Pulse 66 07/27/2024 1:15 PM CDT Temperature 36.3 C (97.4 F) 06/03/2024 9:48 AM SANDING MACHINE OPERATOR Respiratory Rate 18 06/03/2024 9:48 AM SANDING MACHINE OPERATOR Oxygen Saturation 98% 07/27/2024 1:15 PM CDT Inhaled Oxygen Concentration - - Weight 109.8 kg (242 lb) 07/27/2024 1:15 PM CDT Height 175.3 cm (5' 9) 07/27/2024 1:15 PM CDT Body Mass Index 35.74 07/27/2024 1:15 PM CDT Plan of Treatment Not on file Medical Devices Implanted Type Area Tire Worker Device Identifier Shelf Expiration Date Model / Serial / Lot Other - See Comments Other - see comments Left: Arm Description:Metal teresa Procedures Procedure Name Priority Date/Time Associated Diagnosis Comments HEMOGLOBIN A1C Routine 06/03/2024 9:57 AM SANDING MACHINE OPERATOR IRON PROFILE W/ IBC Routine 06/03/2024 9 :57 AM SANDING MACHINE OPERATOR FERRITIN Routine 06/03/2024 9:57 AM SANDING MACHINE OPERATOR PSA SCREEN Routine 10/09/2017 7:39 AM CDT from Last 3 Months or Most Recently Relevant to Health Maintenance Results * (ABNORMAL) Iron profile w/ IBC (06/03/2024 9:57 AM SANDING MACHINE OPERATOR) Iron 58 50 - 150 mcg/dL TIBC 195(L) 250 - 400 mcg/dL [facility] Transferrin saturation 30 20 - 50 % [facility] Blood 06/03/2024 9:57 AM SANDING MACHINE OPERATOR 06/03/2024 1:12 PM SANDING MACHINE OPERATOR us Notinfile Unknown LAB BLOOD ORDERABLES Final Res ult Performing Organization Address [facility] de Phone Number [facility] [address] [place] [address] * Hemoglobin A1c (06/03/2024 9:57 AM SANDING MACHINE OPERATOR) Hgb A1C 4.8 4.0 - 5.6 % Estimated Average Glucose 91 mg/dL [facility] Comment: The ADA recommends reporting an estimated Average Glucose (eAG) with all Hemoglobin A1c results using the equation derived from a study of 507 normal and diabetic adults. Minority populations were underrepresented and children were not included. (Diabetes Care 2020; 43(S1): S66-S76). The eAG is not equivalent to a fasting glucose. Blood 06/03/2024 9:57 AM SANDING MACHINE OPERATOR 06/03/2024 1:13 PM SANDING MACHINE OPERATOR us Notinfile Unknown LAB BLOOD ORDERABLES Final Res ult Performing Organization Address [facility] de Phone Number [facility] [place] [address] * Ferritin (06/03/2024 9:57 AM SANDING MACHINE OPERATOR) Pathologist [facility] Ferritin 56 30 - 400 ng/mL Blood 06/03/2024 9:57 AM SANDING MACHINE OPERATOR 06/03/2024 1:12 PM SANDING MACHINE OPERATOR us Notinfile Unknown LAB BLOOD ORDERABLES Final Res ult Performing Organization Address [facility] de Phone Number [facility] [employer] [place] [address] * PSA screen (10/09/2017 7:39 AM CDT) PSA <0.1 0.0 - 4.0 ng/mL [facility] - 01 Comment: [place] ECLIA methodology. According to the [employer], Serum PSA should decrease and [...] 10/10/2017 8:32 AM CDT Performed at: - [address] [id number] Sole Stainer: Santiago Juárez PhD, Phone: [phone] Fredo Joy MD LAB BLOOD ORDERABLES Gail matamoros [facility] - 01 from Last 3 Months or Most Recently Relevant to Health Maintenance Insurance [employer] ACCESS CHOICE [employer] ACCESS CHOICE Advance Directives For more information, please contact: [phone] * Full Code (Latest Code Status on File) Date Activated Date Inactivated Comments 04/24/2024 8:06 PM 04/29/2024 8:30 PM * Full Code Date Activated Date Inactivated Comments 04/13/2024 10:00 AM 04/21/2024 2:55 PM * Full Code Date Activated Date Inactivated Comments 07/02/2023 4:19 AM 07/14/2023 6:29 PM * Full Code Date Activated Date Inactivated Comments 09/08/2017 12:32 PM 09/09/2017 9:12 PM Care Teams Flatwork Assembler Relationship Specialty Start Date End Date Dana Haynes NP [address] [place] [address] PCP - General Family Medicine 07/03/23 Young Guaman MD [address] [facility] [address] [place] [address] 09/08/17 Jahaira Avendano MD [address] [facility], [facility] [address] [place] [address] Consulting Physician Pain Management 01/02/21
--- OUTSIDE RECORDS SUMMARY | 2024-08-31 17:25 | XMS_ITS | Encounter Summary ---
Author Organization [facility] Healthcare Address [address] [place] [address] Care Team Providers Care Structures Mechanic Name Role Phone Young Guaman MD Unavailable [phone] Jahaira Avendano MD Unavailable Dana Haynes NP Primary Care Provider [phone] Encounter Details Date Type Department Care Team (Late st Contact Info) Description 04/12/2024 Documentation [id number] [place] [address] Alivia Colby, [facility] Social History Tobacco Use Types Packs/Day Years Used Date Smoking Tobacco: Former Cigarettes 1 42 Smokeless Tobacco: Current Chew Alcohol Use Standard Drinks/Week Comments Yes 2 (1 standard drink = 0.6 oz pur e alcohol) OASIS D0700: Social Isolation Answer Da te Recorded Frequency of experiencing loneliness or isolatio n Never 07/15/2023 [facility] Utilities Answer Date Recorded In the past 12 months has th [employer], gas, oil, or water company threatened [...] often do you attend chur ch or amish services? Never 04/14/2024 Do you belong to any clubs o r organizations such as synagogue groups, unions, fraternal or athletic groups, or [...] health care facility (including now)? No 07/03/2023 Housing Stability Vital Sign Answer Sandro e Recorded In the last 12 months, was t here a time when you were not able to pay the mortgage or rent on time? No 04/14/2024 In the past 12 months, how m any times have you moved where you were living? 0 04/14/2024 At any time in the past 12 m [facility], were you homeless or living in a [place] health care facility (including now)? No 04/14/2024 Personal Safety Answer Date Recorded Have you ever been in or are you currently in a harmful physical or emotional relationship or is someone making you feel afraid or unsafe? Denies 04/15/2024 Sex and Gender Information Value Date Recorded Sex Assigned at Not on file Legal Sex Male 2:15 AM HALAL BUTCHER Gender Identity Male 05/24/2020 10:47 AM HALAL BUTCHER Sexual Orientation Straight 05/24/2020 10 :47 AM HALAL BUTCHER documented as of this encounter Functional Status [...] on filedocumented in this encounter Care Teams Structures Mechanic Relationship Specialty Start Date End Date Dana Haynes NP [address] [place] [address] PCP - General Family Medicine 07/03/23 Young Guaman MD [address] [place] [address] [place] [address] 09/08/17 Jahaira Avendano MD [address] [facility], [place] [address] Consulting Physician Pain Management 01/02/21 documented as of this encounter
--- OUTSIDE RECORDS SUMMARY | 2024-08-31 17:25 | XMS_ITS ---
Author Organization [facility] Healthcare [facility] [address] [place] [address] Care Team Providers Care Riding Coach Name Role Phone Young Guaman MD Unavailable Jahaira Avendano MD Unavailable Dana Haynes NP Primary Care Provider [phone] Active Problems Problem Noted Date Diagnosed Date [...]
--- NOTE | 2024-08-31 19:07 | ED_ITS ---
HPI - Chest Pain General Chief Complaint: Chest Pain Stated Complaint: Chest pain-Quad bypass in Apr Time Seen by Provider: 08/31/24 17:04 History of Present Illness HPI narrative: Patient is a 59-year-old male presents to the ER with complaints of chest pain that started on Friday, 6 days ago. Reports pain worsens with exertion. Patient he has intermittent shortness of breath. In April 2024 patient had quadruple bypass surgery. He denies any recent fevers, cough, wheezing, or lower extremity swelling. Patient denies any history of DVTs or PEs. He reports he has been intermittently diaphoretic over the past couple of days. Patient reports he was not prescribed nitroglycerin upon discharge after his heart procedure because he is on Cialis. He endorses history of blood pressure, kidney cancer, prostate cancer and a cholecystectomy. Related Data Home Medications ?Medication ?Instructions ?Recorded ?Confirmed ?Last Taken ?Type psyllium husk 0.4 gram capsule 0.4 g PO DAILY 06/27/23 04/10/24 06/27/23 History (Daily Fiber) acetaminophen 500 mg capsule 500 mg PO Q6H PRN 05/24/24 Unknown History aspirin 325 mg tablet,delayed mg PO ONCE 05/24/24 Unknown History release ferrous sulfate 325 mg (65 mg mg PO 05/24/24 Unknown History iron) tablet,delayed release vancomycin 125 mg capsule mg PO DIRECTED 05/24/24 Unknown History Allergies Allergy/AdvReac Type Severity Reaction Status Date / Time oxycodone Allergy Severe Rash, Verified 04/09/24 22:20 ITCHING Penicillins AdvReac Severe N/V Verified 04/09/24 22:20 tetracycline AdvReac Severe VOMITING, Verified 04/09/24 22:20 DIARRHEA Review of Systems 2 Review of Systems: All systems reviewed & are unremarkable except as noted in HPI and below PMFSH Past Medical History Medical History Prostate cancer Status post radical prostatectomy. Clostridium difficile diarrhea (2020) Hyperlipidemia Erectile dysfunction Headaches due to old head injury Renal cell carcinoma Status post partial left nephrectomy. Benign essential hypertension Surgical History Surgical History History of incisional hernia repair (09/2021) History of arthroscopy of both shoulders History of partial nephrectomy Left partial nephrectomy for RCC. History of radical prostatectomy Prostate cancer. History of [place] fundoplication (04/30/23) Robotic assisted laparoscopic History of surgery on wrist ORIF left wrist fracture. History of cholecystectomy History of kidney surgery Family History Family History Grandparent Hypertension Cerebrovascular accident Mother Diabetes mellitus Lupus Heart disease Hypertension Social History Social History Social History: Surrogate medical decision maker: Davy Stanley, spouse. Code status: Full code. Smoking packs per day: 1 Smoking cigarettes per day: 20.0 Years smoked: 45 Smoking pack-years: 45.00 Smoking status: Former smoker Tobacco type: cigarettes Second hand tobacco smoke exposure: Yes Smoking end date: 06/27/23 Alcohol intake: current Drinks per week: 3 Alcohol use details: occasional Substance use: never Substance use type: does not use Do You Feel Safe in your Home?: Yes Lack of Transportation: No Lack of Food: Never True Current Housing: I Have Housing Concerned About Future Housing: No Difficulty Paying Gas/Electric Bills: No Difficulty Paying for Meds: No Currently Unemployed: No Education: High School Diploma/GED Difficulty w/ Childcare or Family Care: No Living arrangements: with family Spiritual care concerns: No Exam 2 Narrative: GENERAL: Well appearing, well-nourished, non-toxic, in no acute distress. HEAD: Normocephalic, atraumatic. NECK: Supple. No adenopathy, no masses. RESPIRATORY: Airway patent, respirations nonlabored. Clear to auscultation bilaterally, no rales, rhonchi, wheezing. CARDIOVASCULAR: Regular rate and rhythm without murmurs, rubs, or gallops. Peripheral pulses 2+ and equal bilaterally. ABDOMINAL: Soft, nontender, nondistended, no hepatosplenomegaly. Normoactive BS. MUSCULOSKELETAL: Moves all extremities. Strength/ROM intact without gross deformities. SKIN: Warm, dry, normal color. No rashes. NEURO: A&O X3. Speech clear. Cranial nerves II-XII intact. No ataxic movements. PSYCHIATRIC: Appropriate mood and affect. Normal interaction. Course Vital Signs Vital signs: Vital Signs Temperature 36.1 C L 05/27/25 16:18 Pulse Rate 71 08/31/24 16:18 Respiratory Rate 16 08/31/24 16:18 Blood Pressure 166/80 H 08/31/24 16:18 Pulse Oximetry 99 08/31/24 16:18 Oxygen Delivery Room Air 08/31/24 16:18 Temperature 36.1 C L 08/31/24 16:18 Pulse Rate 71 08/31/24 16:18 Respiratory Rate 16 08/31/24 16:18 Blood Pressure 166/80 H 08/31/24 16:18 Pulse Oximetry 100 08/31/24 17:00 Oxygen Delivery Room Air 08/31/24 17:00 MDM - Chest Pain MDM Narrative Medical decision making narrative: Patient is a 59-year-old male presents to the ER with complaints of chest pain that started on Friday, 6 days ago. Reports pain worsens with exertion. Patient he has intermittent shortness of breath. In April 2024 patient had quadruple bypass surgery. He denies any recent fevers, cough, wheezing, or lower extremity swelling. Patient denies any history of DVTs or PEs. He reports he has been intermittently diaphoretic over the past couple of days. Patient reports he was not prescribed nitroglycerin upon discharge after his heart procedure because he is on Cialis. He endorses history of blood pressure, kidney cancer, prostate cancer and a cholecystectomy. Labs Ordered: CBC, CMP, troponin, proBNP, INR, PTT, lipase, TSH Imaging Ordered: Chest x-ray, CTA chest PE Medications Ordered: GI cocktail, aspirin p.o. Results: Pt's chest x-ray indicates Small left-sided pleural effusion without focal infiltrate. Pt's CTA indicates CHEST: 1. No pulmonary embolism. 2. No acute cardiopulmonary pathology. 3. Lungs nodules unchanged from previous examination. ABDOMEN/PELVIS: 1. No evidence of appendicitis, diverticulitis or intestinal obstruction. 2. Multiple hypodensities in the liver suggestive of cysts. Ultrasound confirmation advised. 3. Bilateral renal cysts 4. Slight dilatation of the distal aorta measuring 2.5 cm. 5. Right fat-containing inguinal hernia. Diagnosis: atypical chest pain Risks: Heart score: high risk HEART Pathway for Early Discharge in Acute Chest Pain from [facility] on 08/31/2024 All calculations should be rechecked by clinician prior to use RESULT SUMMARY: 4 points HEART Pathway Score High risk 12-65% 30-day MACE Admit to hospital or observation. Further testing indicated. INPUTS: History ?> 1 = Moderately suspicious EKG ?> 0 = Normal Age ?> 1 = 45-64 Risk factors ?> 2 = >= risk factors or history of atherosclerotic disease Initial troponin ?> 0 = <=Normal limit Consults: cardiology (outpatient) Patient Education/Shared MDM: Pt reports the GI cocktail did not help relieve his symptoms. Results of lab work and imaging shared with patient. He reports he has not had any more episodes of chest pain/shortness of breath since he arrived in the ER. Pt ambulated around ER and tolerated it well. 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 Pt feels STRONGLY about being discharged home. It was deemed this is appropriate for pt as his EKG showed normal sinus rhythm, his troponin levels were both normal, he tolerated his ambulation test, and he has a palaeontologist. It was explained to pt he has a high HEART score, but he reports he will call his palaeontologist tomorrow morning for further evaluation. Patient strongly advised to restrict his exertional activities between time of discharge and when he sees his palaeontologist next. He is requesting a work note for light duty, but pt will be taken off work until he follows up with cardiology. He will not be discharged home with any new prescriptions. Strict return precautions provided. Patient verbalized understanding and is in agreement with plan. Vital signs stable at time of discharge. All questions answered. Differential Diagnosis Differential diagnosis: Likely stable angina, atypical chest pain, st elevation myocardial infarction and other (pulmonary embolism) Lab Data Attestation: I reviewed the patient's lab results. 08/31/24 16:23 08/31/24 16:23 Labs: Lab Results 08/31/24 08/31/24 Range/Units 16:23 19:39 WBC 7.7 (4.5-10.0) K/mm3 RBC 5.16 (4.6-6.20) M/mm3 Hgb 14.4 (14.0-18.0) g/dL Hct 44.6 (42.0-52.0) % MCV 86.4 (80-100) fl MCH 27.9 (26-34) pg MCHC 32.3 (32-36) g/dl RDW 14.3 (11.5-14.5) % Plt Count 207 (150-375) k/mm3 MPV 10.4 (7.4-10.4) fl Immature Gran % (Auto) 0.1 (0-0.5) % Neut % (Auto) 77.0 H (45.5-73.1) % Lymph % (Auto) 13.0 L (18.3-44.2) % [place] % (Auto) 7.4 (2.6-8.5) % Eos % (Auto) 1.7 (0-4.4) % Baso % (Auto) 0.8 (0.2-1.2) % Lymph # (Auto) 1.00 (0.9-3.2) K/mm3 [place] # (Auto) 0.6 (0.1-0.6) K/mm3 Eos # (Auto) 0.1 (0-0.3) K/mm3 Baso # (Auto) 0.1 (0.0-0.1) K/mm3 Abs Immat Gran (auto) 0.01 (0.00-0.031) K/mm3 Absolute Neuts (auto) 5.9 (1.3-6.7) K/mm3 Absolute Nucleated RBC 0.000 (0.0-0.012) K/mm3 Nucleated RBC % 0.0 (0.0-0.2) % PT 12.3 (11.1-14.7) Seconds INR 0.9 APTT 27.3 (22.3-36.8) Seconds D-Dimer 0.55 H (<0.48) ug/mL Sodium 137 (137-145) mmol/L Potassium 4.2 (3.4-5.0) mmol/L Chloride 105 (98-107) mmol/L Carbon Dioxide 24 (22-30) mmol/L Anion Gap 8 (4-12) mmol/L BUN 15 (9-20) mg/dL Creatinine 0.90 (0.7-1.3) mg/dL Estim Creat Clear Calc 93 ml/min Estimated GFR > 60 (59 - ) Glucose 92 (65-110) mg/dL Calcium 9.3 (8.4-10.2) mg/dL Total Bilirubin 0.4 (0.2-1.3) mg/dL AST 74 H (17-59) U/L ALT 61 H (6-50) U/L Alkaline Phosphatase 44 (38-126) U/L Troponin I < 0.012 < 0.012 (0.000-0.034) ng/mL NT-Pro-B Natriuret Pep 258 H (19.9-100) pg/mL Total Protein 8.0 (6.3-8.2) g/dL Albumin 4.4 (3.5-5.1) g/dL Lipase 129 (23-300) U/L TSH (Reflex) 2.080 (0.465-4.68) uIU/mL Imaging Data Attestation: I personally reviewed and interpreted this imaging study as follows: Radiologist's impression: Impressions Chest X-Ray 08/31/24 16:51 IMPRESSION: Small left-sided pleural effusion without focal infiltrate. Chest/Abdomen/Pelvis CTA 08/31/24 21:35 IMPRESSION: CHEST: 1. No pulmonary embolism. 2. No acute cardiopulmonary pathology. 3. Lungs nodules unchanged from previous examination. ABDOMEN/PELVIS: 1. No evidence of appendicitis, diverticulitis or intestinal obstruction. 2. Multiple hypodensities in the liver suggestive of cysts. Ultrasound confirmation advised. 3. Bilateral renal cysts 4. Slight dilatation of the distal aorta measuring 2.5 cm. 5. Right fat-containing inguinal hernia. Discharge Plan Discharge Clinical Impression: Atypical chest pain, Stable angina Patient Disposition: Home Condition: Guarded Prognosis Instructions: Antibiotic Form, Angina (ED), Chest Pain (ED) Additional Instructions: Please return to the ER with any worsening symptoms. Follow-up with Cardiology tomorrow. Take all medications as prescribed, including regularly scheduled medications. Patient Language: Belarusian Prescriptions: No Action vancomycin 125 mg capsule PO DIRECTED acetaminophen 500 mg capsule 500 mg PO Q6H PRN aspirin 325 mg tablet,delayed release (DR/EC) PO ONCE ferrous sulfate 325 mg (65 mg iron) tablet,delayed release (DR/EC) PO psyllium husk [Daily Fiber] 0.4 gram Capsule 0.4 g PO DAILY valsartan-hydrochlorothiazide 320-25 mg tablet See Rx Instructions .ROUTE .COMPLEX Qty: 90 1RF Dose Instruction: TAKE 1 TABLET DAILY Rx Instructions: TAKE 1 TABLET DAILY loratadine [Allergy Relief (loratadine)] 10 mg tablet 10 mg PO DAILY Qty: 30 2RF hydralazine 100 mg tablet See Rx Instructions .ROUTE .COMPLEX Qty: 270 3RF Dose Instruction: TAKE 1 TABLET THREE TIMES A DAY Rx Instructions: TAKE 1 TABLET THREE TIMES A DAY meloxicam 7.5 mg tablet See Rx Instructions .ROUTE .COMPLEX Qty: 90 1RF Dose Instruction: TAKE 1 TABLET TWICE A DAY WITH MEALS Rx Instructions: TAKE 1 TABLET TWICE A DAY WITH MEALS tadalafil [Cialis] 5 mg tablet 5 mg PO DAILY Qty: 90 1RF nortriptyline 50 mg capsule See Rx Instructions .ROUTE .COMPLEX Qty: 90 3RF Dose Instruction: TAKE 1 CAPSULE AT BEDTIME Rx Instructions: TAKE 1 CAPSULE AT BEDTIME pravastatin 40 mg tablet See Rx Instructions .ROUTE .COMPLEX Qty: 90 3RF Dose Instruction: TAKE 1 TABLET DAILY Rx Instructions: TAKE 1 TABLET DAILY montelukast 10 mg tablet See Rx Instructions .ROUTE .COMPLEX Qty: 90 3RF Dose Instruction: TAKE 1 TABLET DAILY Rx Instructions: TAKE 1 TABLET DAILY amlodipine 10 mg tablet See Rx Instructions .ROUTE .COMPLEX Qty: 90 3RF Dose Instruction: TAKE 1 TABLET DAILY Rx Instructions: TAKE 1 TABLET DAILY fluticasone propionate 50 mcg/actuation spray,suspension See Rx Instructions .ROUTE .COMPLEX Qty: 48 1RF Dose Instruction: USE 2 SPRAYS IN EACH NOSTRIL TWICE A DAY FOR 2 WEEKS Rx Instructions: USE 2 SPRAYS IN EACH NOSTRIL q12hr daily famotidine 40 mg tablet See Rx Instructions .ROUTE .COMPLEX Qty: 90 3RF Dose Instruction: TAKE 1 TABLET AT BEDTIME Rx Instructions: TAKE 1 TABLET AT BEDTIME carvedilol 12.5 mg tablet 12.5 mg PO BID Qty: 180 1RF gabapentin 300 mg capsule See Rx Instructions .ROUTE .COMPLEX Qty: 180 1RF Dose Instruction: TAKE 2 CAPSULES (600 MG) AT BEDTIME Rx Instructions: TAKE 2 CAPSULES (600 MG) AT BEDTIME hydroxyzine HCl 25 mg tablet 25 mg PO TID PRN (Reason: anxiety) Qty: 90 0RF escitalopram oxalate [Lexapro] 10 mg tablet 10 mg PO DAILY Qty: 90 1RF Follow-up/Referrals: Pipe Vivar MD [Primary Care Provider] - Anuel Kendall MD [Physician] - (cardiology) Stand Alone Forms: Work/School Release IP Time of Disposition: 23:22
[2024-08-31] MEDS: BELLADONNA ALK/PHENOB ELIX 10 ML, MAG HYDROX/ALUMINUM HYD/SIMETH 30 ML, LIDOCAINE 2% VI... PO (19:46)
[2024-08-31 20:03] LABS: D Dimer 0.55 ug/mL (<0.48)
[2024-08-31 20:13] LABS: NT Pro B Type Natriuretic Pept 258 pg/mL (19.9-100)
[2024-08-31 20:17] LABS: Troponin I < 0.012 ng/mL (0.000-0.034)
--- NOTE | 2024-08-31 23:31 | PC.NURSE ---
This RN took over at 2300 and pt was not connected to vitals machine. This RN charted set of vitals.
[2024-08-31 23:32] VITALS: BP 155/90; PULSE 69; RESP 18; TEMP 36.6; O2SAT 99
== END 2024-08-31 23:35 | disposition home or self-care (01) ==
PROVIDERS: Emergency Medicine; Emergency Provider Registered Nurse; PCP Family Medicine
DX: R07.89 Other chest pain (principal); I20.89 Other forms of angina pectoris; I10 Essential (primary) hypertension; E78.5 Hyperlipidemia, unspecified; Z95.1 Presence of aortocoronary bypass graft; Z85.528 Personal history of other malignant neoplasm of kidney; Z85.46 Personal history of malignant neoplasm of prostate; Z87.891 Personal history of nicotine dependence; Z90.49 Acquired absence of other specified parts of digestive tract; Z90.5 Acquired absence of kidney; Z90.79 Acquired absence of other genital organ(s); R91.8 Other nonspecific abnormal finding of lung field; N28.1 Cyst of kidney, acquired; J90 Pleural effusion, not elsewhere classified; K40.90 Unilateral inguinal hernia, without obstruction or gangrene, not specified as recurrent; Z79.82 Long term (current) use of aspirin; Z79.899 Other long term (current) drug therapy
CPT/HCPCS: 36415; 71046; 71275; 74177; 80053; 83690; 83880; 84443; 84484; 85025; 85380; 85610; 85730; 93005; 99284; A9270; Q9967